=== PATIENT | female | born 1950 | race Caucasian/White ===

== ENCOUNTER 2017-06-29 19:31 | Inpatient (IN) ==
[2017-06-29] MEDS ORDERED: PIPERACILLIN SODIUM/TAZOBACTAM 3.375 GM in DEXTROSE 5% IN WATER 50 ML IV ONE (19:50)
[2017-06-29] MEDS ORDERED: VANCOMYCIN 1,500 MG in 0.9 % SODIUM CHLORIDE 500 ML IV ONE ×2 (19:50→23:36)
--- NOTE | 2017-06-29 19:50 | Emergency Department Note ---
General Adult HPI - General Chief complaint: Extremity Problem,Nontraumatic Stated complaint: leg wounds, SOB Time Seen by Provider: 06/29/17 19:45 Source: patient, EMS Mode of arrival: ambulatory Limitations: no limitations - History of Present Illness HPI Narrative: This patient has open leg wounds that are very foul-smelling. He has been going on for a couple months and the patient has just been tending to them as best she can at home. She also feels a little short of breath and apparently has some asthma - Related Data Home Medications Medication Instructions Recorded Confirmed Albuterol Sulfate [Proair Hfa] 8.5 gm IH Q4 04/28/16 05/05/16 Carvedilol [Coreg] 25 mg PO BID 04/28/16 05/05/16 Furosemide [Lasix] 40 mg PO BID 04/28/16 05/05/16 HYDROcodone/APAP 5/325MG [[place] 1 tab PO Q6HP PRN 04/28/16 05/05/16 5/325Mg] Lovastatin [Altoprev] 40 mg PO DAILY 04/28/16 05/05/16 Potassium Chloride [Kdur] 10 meq PO TIDCC 04/28/16 05/05/16 Salmeterol Xinafoate [Serevent] 50 mcg IH BID 04/28/16 05/05/16 amLODIPine BESYLATE [Amlodipine 10 mg PO DAILY 04/28/16 05/05/16 Besylate] cloNIDine HCL [Catapres] 0.6 mg PO BID 04/28/16 05/05/16 Aleve (Pp) 225 mg PO Q6H PRN 05/05/16 05/05/16 Tylenol 500 mg PO Q6 PRN 05/05/16 05/05/16 Ergocalciferol (Vitamin D2) 50,000 unit PO WEEKLY 05/07/16 05/07/16 [Vitamin D2] Losartan [Cozaar] 25 mg PO DAILY 05/07/16 05/07/16 Previous Rx's Medication Instructions Recorded Ciprofloxacin [Cipro] 500 mg PO BID #30 tablet 05/09/16 Allergies Allergy/AdvReac Type Severity Reaction Status Date / Time lidocaine AdvReac Intermediate Muscle Pain Verified 05/05/16 21:23 morphine AdvReac Intermediate Vomiting Verified 05/05/16 21:23 wool AdvReac Intermediate Rash Verified 05/05/16 21:23 tramadol AdvReac Mild Vomiting Verified 05/05/16 21:23 Review of Systems All systems ED: reviewed and negative except as stated. 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 It is very foul-smelling and draining. She also has wraps on the left leg as well. Wound in the right leg is much worse than the left with a lot of ulceration on the lateral side of the lower leg. Limitations: no limitations General appearance: alert, in no apparent distress Head: atraumatic, normocephalic Eye: Present: normal appearance ENT: normal exam Neck: Present: normal inspection Chest: Present: normal inspection Respiratory: Present: normal lung sounds bilaterally Cardiovascular: Present: regular rate, normal rhythm, normal heart sounds Neurological: Present: alert Psychiatric: Present: normal affect, normal mood Skin: Present: warm, dry, intact Medical Decision Making - MDM Narrative Medical decision making narrative: I gave the patient dose of vancomycin and Zosyn and she will be admitted to the hospital by the hospitalist. - Lab Data Lab results reviewed: Yes I reviewed the patient's lab results. Result diagrams: 06/29/17 20:25 06/29/17 20:25 Lab Results 06/29/17 06/29/17 Range/Units 20:25 20:25 WBC 7.4 (4.5-11.0) K/mcL RBC 3.99 L (4.00-5.20) M/mcL Hgb 11.0 L (12.0-15.0) g/dL Hct 34.1 L (36.0-48.0) % MCV 85.5 (80.0-100.0) fL MCH 27.6 (26.0-34.0) pg MCHC 32.3 (31.0-36.0) g/dL RDW 14.1 (11.5-14.5) % Plt Count 348 (140-440) K/mcL MPV 7.2 L (7.4-10.4) fL Gran % 56.3 (38.0-78.0) % Lymph % (Auto) 30.3 (15.5-49.0) % [place] % (Auto) 8.7 (1.0-12.0) % Eos % (Auto) 4.4 (0.0-7.0) % Baso % (Auto) 0.3 (0.0-2.0) % Gran # 4.2 (1.8-8.0) K/mcL Lymph # (Auto) 2.3 (1.5-4.8) K/mcL [place] # (Auto) 0.6 (0.1-0.9) K/mcL Eos # (Auto) 0.3 (0.0-0.7) K/mcL Baso # (Auto) 0 (0.0-0.3) K/mcL Sodium 135 (133-145) mmol/L Potassium 3.6 (3.3-5.1) mmol/L Chloride 96 (96-108) mmol/L Carbon Dioxide 24 (22-30) mmol/L Anion Gap 15.0 (8-16) BUN 26 H (8-23) mg/dl Creatinine 1.7 H (0.6-1.1) mg/dl GFR Calculation 31 Glucose 121 H (70-105) mg/dL Calcium 9.1 (8.6-10.4) mg/dl Total Bilirubin 0.2 (0.0-1.0) mg/dL AST 15 (0-37) U/l ALT 15 (0-40) U/l Alkaline Phosphatase 81 (39-117) U/L Total Protein 7.2 (5.9-8.4) gm/dL Albumin 3.2 (3.2-5.2) gm/dL Globulin 4.0 H (2.2-3.7) gm/dL Albumin/Globulin Ratio 0.8 L (1.0-2.3) Disposition 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
[2017-06-29] MEDS ORDERED: HYDROmorphone 2 MG/ML SYRINGE IV PRN (20:41)
[2017-06-29 21:02] LABS: Basophils # (Auto) 0 K/mcL (0.0-0.3); Basophils % (Auto) 0.3 % (0.0-2.0); Eosinophils # (Auto) 0.3 K/mcL (0.0-0.7); Eosinophils % (Auto) 4.4 % (0.0-7.0); Granulocytes % (Auto) 56.3 % (38.0-78.0); Lymphocytes # (Auto) 2.3 K/mcL (1.5-4.8); Lymphocytes % (Auto) 30.3 % (15.5-49.0); Mean Cell Volume 85.5 fL (80.0-100.0); Mean Corpuscular HGB Conc 32.3 g/dL (31.0-36.0); Mean Corpuscular Hemoglobin 27.6 pg (26.0-34.0); Monocytes # (Auto) 0.6 K/mcL (0.1-0.9); Monocytes % (Auto) 8.7 % (1.0-12.0); Platelet Count 348 K/mcL (140-440); RBC 3.99 M/mcL (4.00-5.20); Red Cell Distribution Width 14.1 % (11.5-14.5)
[2017-06-29] MEDS ORDERED: ONDANSETRON 4 MG/2 ML VIAL ONE (21:02)
[2017-06-29 21:12] LABS: ALT/SGPT 15 U/l (0-40); Albumin 3.2 gm/dL (3.2-5.2); Albumin/Globulin Ratio 0.8 (1.0-2.3); Alkaline Phosphatase 81 U/L (39-117); Blood Urea Nitrogen 26 mg/dl (8-23)
[2017-06-29] MEDS ORDERED: ONDANSETRON 4 MG/2 ML VIAL IV ONE (21:16)
[2017-06-29] MEDS ORDERED: PIPERACILLIN SODIUM/TAZOBACTAM 3.375 GM VIAL IV ONE (21:43)
[2017-06-29] MEDS ORDERED: 0.9 % SODIUM CHLORIDE 1,000 ML IV ONE (22:35)
--- NOTE | 2017-06-29 22:51 | Internal Med History&Physical ---
Medical - H&P: HPI Patient information: Note initiated : 06/29/17 at 10:44 pm Service Date, if different from initiated Date: [] Patient: Cony Baig a 66 y/o F admitted on for leg wounds, SOB. Chief Complaint: [] History of present illness: Ms. Baig is a 66 year old Female with history of chronic bronchitis, hypertension and obesity presented to the ER to with complaints of worsening wounds of both her legs. According to the patient, she has been having blisters n both lower extremities. She attributes these blisters to(lubrication ) injections in her knee, which were given to her for osteoarthritis. She tried to take care of these boosters at home using hydroperoxide, however they continued to progress, she never seeked help. The wounds started to aggresively get worse, over last 2 months. The patient has been having pain in both her lower extremities, and she has been taking ibuprofen approx 600mg four to 5 times a day. Over the last 2 weeks she has also been having a sinus infection, some cough, and shortness of breath. She was unable to manage the wounds by her self and therefore came in today for evaluation and help The patient lives with her , who is legally as per her and live in the same house, pt notes that they want to separate but cannot afford immigration attorney fees. She notes that her son 28 yr old was killed / in july and since then she has not been doing well. She attributes the of her son as the main reason she did not seek help earlier In the ER the patient was afebrile, she had both legs covered in dressing, which was draining profusely and was smelling bad, her X Ray chest is neg, labs show creat of 1.7. She was admitted to the hospital for further management. All systems: reviewed and no additional remarkable complaints except as stated ( as per HPI) Medical - H&P: PMH Medical history: Medical History Cellulitis (Acute) Edema extremities (Acute) Venous stasis ulcer of both lower extremities without varicose veins (Acute) Cellulitis and abscess of leg (Acute) Diabetic ankle ulcer (Acute) HTN obesity Family history: reviewed and not pertinent Social history: lives home denies smoking, etoh or recreational drugs. Medical - H&P: Meds Home Medications Medication Instructions Recorded Confirmed Type Albuterol Sulfate [Proair Hfa] 8.5 gm IH Q4 04/28/16 05/05/16 History Carvedilol [Coreg] 25 mg PO BID 04/28/16 05/05/16 History Furosemide [Lasix] 40 mg PO BID 04/28/16 05/05/16 History HYDROcodone/APAP 5/325MG [[place] 1 tab PO Q6HP PRN 04/28/16 05/05/16 History 5/325Mg] Lovastatin [Altoprev] 40 mg PO DAILY 04/28/16 05/05/16 History Potassium Chloride [Kdur] 10 meq PO TIDCC 04/28/16 05/05/16 History Salmeterol Xinafoate [Serevent] 50 mcg IH BID 04/28/16 05/05/16 History amLODIPine BESYLATE [Amlodipine 10 mg PO DAILY 04/28/16 05/05/16 History Besylate] cloNIDine HCL [Catapres] 0.6 mg PO BID 04/28/16 05/05/16 History Aleve (Pp) 225 mg PO Q6H PRN 05/05/16 05/05/16 History Tylenol 500 mg PO Q6 PRN 05/05/16 05/05/16 History Ergocalciferol (Vitamin D2) 50,000 unit PO WEEKLY 05/07/16 05/07/16 History [Vitamin D2] Losartan [Cozaar] 25 mg PO DAILY 05/07/16 05/07/16 History Ciprofloxacin [Cipro] 500 mg PO BID #30 tablet 05/09/16 Rx Allergies Allergy/AdvReac Type Severity Reaction Status Date / Time lidocaine AdvReac Intermediate Muscle Pain Verified 05/05/16 21:23 morphine AdvReac Intermediate Vomiting Verified 05/05/16 21:23 wool AdvReac Intermediate Rash Verified 05/05/16 21:23 tramadol AdvReac Mild Vomiting Verified 05/05/16 21:23 Medical - H&P: Exam - Constitutional Vitals: Pulse BP Pulse Ox 66 117/98 92 06/29/17 21:59 06/29/17 21:59 06/29/17 21:59 Exam: GENERAL: The patient is a well-developed, well-nourished in no apparent distress. Is alert and oriented x3. obese VITAL SIGNS: Reviewed and as noted elsewhere. HEENT: Head is normocephalic and atraumatic. Extraocular muscles are intact. Pupils are equal, round, and reactive to light. Nares appeared normal. Mouth appears any without lesions. Mucous membranes are moist. NECK: Normal to inspection, Supple, No lymphadenopathy or thyromegaly. LUNGS: Air entry equal on both sides, no wheezing, crackles or rhonchi noted. No accessory muscles of respiration HEART: Regular rate and rhythm normal, S1 and S2 heard, no Gallop, S3 or Rub Noted, No Gross murmur heard. ABDOMEN: Soft, nontender, and nondistended. Positive bowel sounds. No hepatosplenomegaly was noted. EXTREMITIES: wilder extremities, below knee lower 1/3 significant necrotizing infection, excoration and foul smelling wounds. RIght significantly worse than left, but left is pretty bad too. wilder DP pulses present. see pic in chart NEUROLOGIC: Cranial nerves II through XII are grossly intact. Motor and Sensory System Grossly Intact PSYCHIATRIC: Depressed, intermittently crying, SKIN: No ulceration or wounds noted, No jaundice, No rash noted. Medical - H&P: Reslt - Labs CBC & Chem 7: 06/29/17 20:25 06/29/17 20:25 Labs: Short CBC 06/29/17 Range/Units 20:25 WBC 7.4 (4.5-11.0) K/mcL Hgb 11.0 L (12.0-15.0) g/dL Hct 34.1 L (36.0-48.0) % Plt Count 348 (140-440) K/mcL BMP 06/29/17 20:25 Sodium 135 Potassium 3.6 Chloride 96 Carbon Dioxide 24 BUN 26 H Creatinine 1.7 H Glucose 121 H Calcium 9.1 Liver Function 06/29/17 Range/Units 20:25 Total Bilirubin 0.2 (0.0-1.0) mg/dL AST 15 (0-37) U/l ALT 15 (0-40) U/l Alkaline Phosphatase 81 (39-117) U/L Albumin 3.2 (3.2-5.2) gm/dL Medical - H&P: A/P - Narrative A/P Narrative: A/P Wilder lower extremity wounds/ Acute cellutlitis, : Wound care consult, IV vanco and zosyn for now, get x ray of legs, consider CT , check a1c, Renal failure: IV fluids for now, likely secondary to nsaid use, check urine studies, renal sonogram. Depression: clinically seems depressed, consider she was supposed to follow up with psych as outpatient, but never did, declined anti depressant medications HTN: Hold bp meds for now, wait for verification, resume once bp is stable. DVT hep sq Diet regular Full code
[2017-06-29] MEDS ORDERED: VANCOMYCIN PER PHARMACY IV ONE (23:36)
[2017-06-29] MEDS ORDERED: oxyCODONE HCL 5 MG TABLET PO PRN (23:36)
[2017-06-29] MEDS ORDERED: ACETAMINOPHEN 325 MG TABLET PO PRN (23:36)
[2017-06-29] MEDS ORDERED: NALOXONE HCL 0.4 MG/ML VIAL IV PRN (23:36)
[2017-06-30] MEDS ORDERED: DEXTROSE 5% IN WATER 500 ML IV ONE (00:15)
[2017-06-30] MEDS ORDERED: VANCOMYCIN 1 GM VIAL ONE (00:27)
[2017-06-30] MEDS ORDERED: VANCOMYCIN 500 MG VIAL ONE (00:27)
[2017-06-30 00:53] LABS: Appearance,Urine HAZY; Bacteria,Urine MOD /hpf (0); Bilirubin,Urine NEG (NEG); Color,Urine YELLOW; Glucose,Urine (UA) NEGATIVE (NEG); Leukocyte Esterase,Urine NEG /uL (NEG); Mucus,Urine FEW /hpf (0); Nitrate,Urine NEG (NEG); Protein,Urine 100 mg/dL (NEG); Specific Gravity,Urine 1.019 (1.000-1.035); Urine Amorphous Crystals FEW /hpf (0); Urine Blood NEG mg/dL (<0.03); Urine Hyaline Cast 57 /lpf (0-2); Urine RBC 4 /hpf (0-1); Urine Squamous Epithelial Cell 12 /hpf (0-4); Urine Transitional Epi Cells < 1 /hpf (0-2); Urine WBC 9 /hpf (0-4)
[2017-06-30] MEDS: ONDANSETRON 4 MG/2 ML VIAL IV PRN ×2 (01:06→07:07)
[2017-06-30] MEDS: HYDROmorphone 2 MG/ML SYRINGE IV PRN ×2 (01:07→07:02)
[2017-06-30] MEDS ORDERED: HYDROmorphone 2 MG/ML SYRINGE ONE (01:08)
[2017-06-30] MEDS: PIPERACILLIN SODIUM/TAZOBACTAM 3.375 GM in DEXTROSE 5% IN WATER 50 ML IV SCH ×4 (01:35→21:31)
[2017-06-30] MEDS: 0.9 % SODIUM CHLORIDE 10 ML SYRINGE IV SCH ×3 (01:57→21:31)
[2017-06-30] MEDS: IPRATROPIUM/ALBUTEROL 3 ML AMPUL.NEB NEB ONE ×2 (01:58→02:24)
[2017-06-30] MEDS: LACTATED RINGERS 1,000 ML IV SCH ×3 (04:21→16:22)
[2017-06-30] MEDS ORDERED: oxyCODONE HCL 5 MG TABLET PO ONE (04:31)
--- NOTE | 2017-06-30 06:28 | XRay Report ---
CLINICAL INFORMATION: Cellulitis COMPARISON: None. FINDINGS: No osseous abnormality. Severe degenerative change in the medial tibiofemoral compartment noted. The lateral tibiofemoral compartment and ankle mortise are normal in width and alignment. Diffuse soft tissue swelling compatible with cellulitis/fasciitis appreciated IMPRESSION: Moderate diffuse soft tissue swelling, most prominent in the lateral upper calf, compatible cellulitis/fasciitis Severe degenerative change - medial compartment tibiofemoral joint Interpreted and Authenticated by: Rhys Wong 06/30/17
--- NOTE | 2017-06-30 06:31 | XRay Report ---
CLINICAL INFORMATION: Shortness of breath COMPARISON: None. FINDINGS: The heart is mildly enlarged - accentuated by lordotic positioning, right rotation and portable technique. Mediastinum and pulmonary vessels are normal. Minor bibasilar atelectasis noted - no definite infiltrate or effusion IMPRESSION: Mild cardiomegaly and mild bibasilar atelectasis Interpreted and Authenticated by: Rhys Wong 06/30/17
--- NOTE | 2017-06-30 06:40 | XRay Report ---
CLINICAL INFORMATION: Cellulitis COMPARISON: None. FINDINGS: No osseous abnormality. Moderate degenerative change in the tibiofemoral and patellofemoral joints. Ankle mortise is normal. Moderate diffuse soft tissue swelling, predominantly in the upper calf, is compatible with the clinical diagnosis of cellulitis/fasciitis IMPRESSION: Moderate soft tissue swelling, predominantly in the upper calf, compatible with the clinical diagnosis of cellulitis/fasciitis. Moderate degenerative change - tibiofemoral patellofemoral joints Interpreted and Authenticated by: Rhys Wong 06/30/17
[2017-06-30] MEDS ORDERED: VANCOMYCIN PER PHARMACY IV SCH ×3 (07:00→15:24)
[2017-06-30 07:46] LABS: Basophils # (Auto) 0 K/mcL (0.0-0.3); Basophils % (Auto) 0.3 % (0.0-2.0); Eosinophils # (Auto) 0.3 K/mcL (0.0-0.7); Eosinophils % (Auto) 4.7 % (0.0-7.0); Granulocytes % (Auto) 59.3 % (38.0-78.0); Lymphocytes # (Auto) 1.8 K/mcL (1.5-4.8); Lymphocytes % (Auto) 27.9 % (15.5-49.0); Mean Cell Volume 85.3 fL (80.0-100.0); Mean Corpuscular HGB Conc 33.1 g/dL (31.0-36.0); Mean Corpuscular Hemoglobin 28.2 pg (26.0-34.0); Monocytes # (Auto) 0.5 K/mcL (0.1-0.9); Monocytes % (Auto) 7.8 % (1.0-12.0); Platelet Count 316 K/mcL (140-440); Red Cell Distribution Width 14.1 % (11.5-14.5)
[2017-06-30] MEDS ORDERED: oxyCODONE HCL 5 MG TABLET PO PRN ×2 (08:04→13:51)
[2017-06-30 08:20] LABS: ALT/SGPT 15 U/l (0-40); Albumin 2.9 gm/dL (3.2-5.2); Albumin/Globulin Ratio 0.8 (1.0-2.3); Alkaline Phosphatase 66 U/L (39-117); Bilirubin,Direct < 0.2 mg/dL (0.0-0.3); Blood Urea Nitrogen 19 mg/dl (8-23); Gamma Glutamyl Transpeptidase 51 U/L (5-36)
[2017-06-30 08:23] LABS: Estimated Average Glucose(eAG) 157 mg/dL; Hemoglobin A1C 7.1 % HGB (4.0-6.0)
[2017-06-30] MEDS ORDERED: HEPARIN 5,000 UNIT/ML VIAL SQ SCH ×2 (09:00→21:00)
[2017-06-30] MEDS ORDERED: DEXTROSE 50% 50 ML VIAL IV PRN ×3 (09:08→15:24)
[2017-06-30] MEDS ORDERED: DEXTROSE 31 GM ORAL.SUSP PO PRN ×3 (09:08→15:24)
--- NOTE | 2017-06-30 09:40 | Internal Med Progress Note ---
Medical - PN: Subj Patient information: Note initiated : 06/30/17 at 9:38 am Service Date, if different from initiated Date: [] Patient: Cony Baig 66 y/o F admitted on 06/29/17 for leg wounds, SOB. Chief Complaint: [] Interval history: Ms. Baig is a 66 year old Female with history of chronic bronchitis, hypertension and obesity presented to the ER to with complaints of worsening wounds of both her legs. According to the patient, she has been having blisters n both lower extremities. She attributes these blisters to(lubrication ) injections in her knee, which were given to her for osteoarthritis. She tried to take care of these boosters at home using hydroperoxide, however they continued to progress, she never seeked help. The wounds started to aggresively get worse, over last 2 months. The patient has been having pain in both her lower extremities, and she has been taking ibuprofen approx 600mg four to 5 times a day. Over the last 2 weeks she has also been having a sinus infection, some cough, and shortness of breath. 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 She notes that her son 28 yr old was killed / in July and since then she has not been doing well. She attributes the of her son as the main reason she did not seek help earlier In the ER the patient was afebrile, she had both legs covered in dressing, which was draining profusely and was smelling bad, her X Ray chest is neg, labs show creat of 1.7. She was admitted to the hospital for further management. Jun 30 Patient seen examined, no acute overnight issues, x rays wilder shows cellulitis, fascitis, no air patient labs reviewed she was crying overnight, but has refused anti depressants, The patient with acute cellutlitis/ fascitis, will have gen surgery evaliuate the patient for nwo and then can have follow up with wound care as outpatient. continue iv abx patient had some nausea to dilaudid, d/c same, just use oral pain meds for pain management creat is normal now, await renal sonogram Pertinent ROS: Denies headache, dizziness Denies chest pain, palpitations Denies cough or shortness of breath Denies abdominal pain, present nausea no vomiting. - Constitutional Vitals: Vital Signs Temp Pulse Resp BP Pulse Ox 100.1 F H 70 20 164/72 93 06/30/17 07:26 06/30/17 04:00 06/30/17 07:26 06/30/17 07:26 06/30/17 08:00 Period Temp Pulse Resp BP Sys/Najera Pulse Ox Last 24 Hr 97.8 F-100.1 F 66-75 - 117-164/68-98 92-93 Intake and Output 06/29/17 06/30/17 06/30/17 21:59 05:59 13:59 Intake Total 1650 / 1650 Output Total 250 / 250 Balance 1400 / 1400 Weight 200 lb 247 lb Intake & Output: Intake & Output 06/29/17 06/30/17 06/30/17 21:59 05:59 13:59 Intake Total 1650 / 1650 Output Total 250 / 250 Balance 1400 / 1400 Weight 200 lb 247 lb Intake: IV 1050 / 1050 Zosyn 3.375 gm In Dextrose 5% 50 / 50 in Water 50 ml @ 100 mls/hr IV ONCE ONE Rx#:[id number] Oral 600 / 600 Output: Void Amount 250 / 250 Exam: Constitutional; Afebrile, cooperative, alert, not in distress. Eyes- No icterus, No periorbital swelling Ears- Ext ear normal, hearing normal to conversation. Neck- Midline trachea, supple Respiratory system: Air Entry equal on both sides, No crackles or wheezing, no rhonchi. CVS- Rate rhythm regular, S1,S2 heard, no gallop, no rub. Abdomen- Soft nontender abdomen, no organomegaly, no tenderness, no guarding or rigidity, REPRESENTATIVE PERSONAL SERVICE- AOOx3, moving all extremities, no gross focal deficit noted. Medical - PN: Obj Da - Labs CBC & Chem 7: 06/30/17 06:42 06/30/17 06:42 Labs: Abnormal Lab Results 06/30/17 06/30/17 06/30/17 06:42 06:42 06:42 RBC 3.70 L Hgb 10.4 L Hct 31.6 L MPV 7.0 L Carbon Dioxide 21 L BUN Creatinine Glucose 128 H Hemoglobin A1c 7.1 H Calcium 8.2 L GGT 51 H Albumin 2.9 L Globulin Albumin/Globulin Ratio 0.8 L Urine Protein Urine Urobilinogen Urine RBC Urine WBC Ur Squamous Epith Cells Amorphous Crystals Urine Bacteria Hyaline Casts U [place] Prot/Creat Ratio 06/30/17 06/29/17 06/29/17 00:05 20:25 20:25 RBC 3.99 L Hgb 11.0 L Hct 34.1 L MPV 7.2 L Carbon Dioxide BUN 26 H Creatinine 1.7 H Glucose 121 H Hemoglobin A1c Calcium GGT Albumin Globulin 4.0 H Albumin/Globulin Ratio 0.8 L Urine Protein 100 A Urine Urobilinogen 2.0 A Urine RBC 4 H Urine WBC 9 H Ur Squamous Epith Cells 12 H Amorphous Crystals Few A Urine Bacteria Mod A Hyaline Casts 57 H U [place] Prot/Creat Ratio 06/29/17 00:05 RBC Hgb Hct MPV Carbon Dioxide BUN Creatinine Glucose Hemoglobin A1c Calcium GGT Albumin Globulin Albumin/Globulin Ratio Urine Protein Urine Urobilinogen Urine RBC Urine WBC Ur Squamous Epith Cells Amorphous Crystals Urine Bacteria Hyaline Casts U [place] Prot/Creat Ratio 0.21 H Meds: Medications Acetaminophen (Tylenol) 650 mg PO Q6HP PRN PRN Reason: PAIN/FEVER > 101 Albuterol/Ipratropium (Duoneb) 3 ml NEB Q6HRT [facility] Dextrose (Dextrose 50%) 0 ml IV UD PRN PRN Reason: Hypoglycemia Diagnostic Test (Pha) (Accu-Chek) 1 each FS ACHS [facility] Glucose (Insta-Glucose) 15 gm PO PRN PRN PRN Reason: Hypoglycemia Heparin Sodium (Porcine) (Heparin) 5,000 unit SQ Q12 [facility] Last Admin: 06/30/17 08:52 Dose: 5,000 unit Lactated Ringer's (Lactated Ringers) 1,000 mls @ 100 mls/hr IV .Q10H [facility] Last Admin: 06/30/17 08:43 Dose: Not Given Piperacillin Sod/Tazobactam (Sod 3.375 gm/ Dextrose) 50 mls @ 100 mls/hr IV Q8H [facility] Last Admin: 06/30/17 08:04 Dose: 100 mls/hr Vancomycin HCl 1,500 mg/ (Sodium Chloride) 500 mls @ 333.3 mls/hr IV DAILY [facility] Insulin Human Lispro (Humalog) 0 unit SQ ACHS [facility] PRN Reason: Protocol Naloxone HCl (Narcan) 0.1 mg IV Q2MIN PRN PRN Reason: Opiate Reversal Ondansetron HCl (Zofran) 4 mg IV Q6HP PRN PRN Reason: Nausea And Vomiting Last Admin: 06/30/17 07:07 Dose: 4 mg Oxycodone HCl (Roxicodone) 5 - 10 mg PO Q4HP PRN PRN Reason: PAIN LEVEL 3-6 Sodium Chloride (Saline Flush) 10 ml IV Q8 [facility] Last Admin: 06/30/17 04:30 Dose: 10 ml Vancomycin HCl (Vancomycin Per Pharmacy) 1 order IV UD [facility] Medical - PN: A/P - Time Spent With Patient Total time spent is greater than 50% in coordination of care (as documented) at patient's floor/unit and/or counseling patient: - Narrative A/P Narrative: A/P Wilder lower extremity wounds/ Acute cellutlitis/ fascitis, : Surgery consult, IV vanco and zosyn for now,x ray neg, will await surgery consult DM sliding scale insulin, glucose at goal Renal failure: creat is 1.0 now, await sonogram, continue with hydration. . Depression: clinically seems depressed, consider she was supposed to follow up with psych as outpatient, but never did, declined anti depressant medications, will try to see if we can convince her again. HTN: Hold bp meds for now, wait for verification, resume once bp is stable. DVT hep sq Diet regular Full code Medical - PN: Qual - VTE Deep Vein Thrombosis/Pulmonary Embolism Present on Admission: No
--- NOTE | 2017-06-30 11:28 | Consultation ---
DATE OF CONSULTATION: 06/30/2017 CHIEF COMPLAINT: The patient is seen in consultation at the request of Dr. Dye for bilateral lower extremity wounds. HISTORY OF PRESENT ILLNESS: The patient is a 66-year-old woman who was admitted to the hospital last evening with bilateral lower extremity wounds. The patient reports that she has had these wounds for approximately 4 months. She says she started off with blisters on both lower legs. She thought this was related to injections that she received for osteoarthritis. She has been trying to care for these wounds at home but they have continued to worsen and she presented to the ER last evening for further treatment. She reports that they are extremely painful. She reports that in the past about one year ago she had similar wounds on her lower extremities bilaterally which required debridement in the operating room due to the amount of pain that she was having. She states that she had been seen in wound care by Dr. Oseguera for the wound she had a year ago. She has not recently been seen in wound care for these current wounds. REVIEW OF SYSTEMS: CARDIOVASCULAR: Denies chest pain or pressure. PULMONARY: Denies any cough or shortness of breath. PAST MEDICAL HISTORY: 1. Bilateral lower extremity edema. 2. Venous stasis ulcer of the lower extremities bilaterally. 3. Prior bilateral lower extremity cellulitis and ulcers. 4. Hypertension. 5. Obesity. 6. COPD. SOCIAL HISTORY: The patient reports that she is and lives with her . PHYSICAL EXAMINATION: VITAL SIGNS: Temperature 100.1, pulse 83, respirations 20, blood pressure 164/72, O2 saturations are 92-93% on 2 liters of O2 nasal cannula. GENERAL: The patient is an elderly woman who appears her stated age, well-developed, obese, and disheveled in appearance. HEENT: Head is normocephalic. Sclerae are white. Mucous membranes are moist. CHEST: Breath sounds are clear in the upper manriquez bilaterally. No rales or wheezes heard. Breath sounds are diminished at the bases. CARDIOVASCULAR: Regular rhythm and rate. EXTREMITIES: DP pulses are palpable in the lower extremities bilaterally. On visual inspection, the lower legs bilaterally have erythema which blanches circumferentially consistent with cellulitis. She has multiple areas of skin discoloration with some loss of skin and some areas with open wound present and in other areas of what appears to be frankly necrotic skin. There is foul odor coming from the legs. There were significant serous-appearing drainage on the bandages that had been placed on her legs on admission but no zahraa pus noted from any of the wounds. Palpation of the lower extremities is very difficult due to the extreme tenderness that the patient has in these areas. The erythema extends for a few centimeters from below the knee down to the ankles bilaterally. There are also venous stasis changes noted of the lower extremities bilaterally. LABS AND STUDIES: CBC shows a white count of 6.4, hemoglobin of 10.4, hematocrit 31.6 and platelets of 316. Serum chemistries show a sodium of 137, potassium 3.5, chloride 100, CO2 21, BUN 19, creatinine 1.0. This is down from admission at which time it was 1.7. Glucose is 128. Hemoglobin A1c is elevated at 7.1. Calcium 8.2, phosphorus 4, magnesium 2. Total bilirubin 0.2, GGT 51, AST 18, ALT 15, alkaline phosphatase 66, lactate dehydrogenase 174, albumin 2.9. Tib/fib x-rays of the right and left lower extremities show soft tissue swelling without any evidence of soft tissue gas. ASSESSMENT AND PLAN: 1. Bilateral lower extremity venous stasis ulcer with necrotic tissue. 2. Bilateral lower extremity cellulitis. 3. The wounds need debridement of areas of frankly necrotic tissue. Given the extreme tenderness of these wounds, recommendation is that this be done in the operating room under anesthesia. Risks and benefits of the procedure were reviewed with the patient. Risks include, but are not limited to, bleeding, infection, possible need for further debridement, and risks of general anesthesia. The patient verbalized understanding of the surgery and would like to proceed. RC:keith Job ID: [id number] Doc ID: [id number] Diann Jimenez MD
[2017-06-30] MEDS ORDERED: INSULIN LISPRO 1 UNIT/0.01 ML UNIT SQ SCH ×2 (11:30→17:00)
[2017-06-30] MEDS: IPRATROPIUM/ALBUTEROL 3 ML AMPUL.NEB NEB SCH ×5 (11:43→23:59)
[2017-06-30] MEDS ORDERED: ONDANSETRON 4 MG/2 ML VIAL IV ONE (12:50)
[2017-06-30] MEDS ORDERED: MIDAZOLAM 5 MG/5 ML VIAL IV ONE (12:50)
[2017-06-30] MEDS ORDERED: DEXAMETHASONE 10 MG/ML VIAL IV ONE (12:50)
[2017-06-30] MEDS ORDERED: PROPOFOL 200 MG/20 ML VIAL IV ONE (12:50)
[2017-06-30] MEDS ORDERED: fentaNYL 250 MCG/5 ML VIAL IV ONE (12:50)
[2017-06-30] MEDS ORDERED: NALBUPHINE 10 MG/ML AMPUL IV ONE (12:50)
[2017-06-30] MEDS ORDERED: SILVER SULFADIAZINE CREAM.TOP 25GM TOPICAL SCH (12:51)
[2017-06-30] MEDS ORDERED: NALOXONE HCL 0.4 MG/ML VIAL IV PRN ×4 (13:35→15:24)
[2017-06-30] MEDS ORDERED: ONDANSETRON 4 MG/2 ML VIAL IV PRN ×4 (13:35→15:24)
[2017-06-30] MEDS ORDERED: IPRATROPIUM/ALBUTEROL 3 ML AMPUL.NEB NEB PRN ×2 (13:35→13:51)
[2017-06-30] MEDS ORDERED: LACTATED RINGERS 250 ML IV PRN ×2 (13:35→13:51)
[2017-06-30] MEDS ORDERED: MEPERIDINE 25 MG/ML SYRINGE IV PRN ×2 (13:35→13:51)
[2017-06-30] MEDS ORDERED: FLUMAZENIL 0.1 MG/ML ML IV PRN ×2 (13:35→13:51)
[2017-06-30] MEDS ORDERED: ACETAMINOPHEN 1,000 MG/100 ML BOTTLE IV ONE (13:35)
[2017-06-30] MEDS ORDERED: LACTATED RINGERS 1,000 ML IV SCH ×3 (13:45→13:51)
--- NOTE | 2017-06-30 13:50 | Brief Operative Note ---
Date of procedure: 06/30/17 Pre-op diagnosis: bilateral lower leg wounds Post-op diagnosis: same Procedure: debridement of lower leg wounds Grafts/Implants: No Anesthesia: GLMA Findings: lower leg venous stasis ulcers with necrotic skin Complications: none Surgeon: Diann Jimenez Estimated blood loss (cc): 10 Condition: stable Disposition: PACU
[2017-06-30] MEDS ORDERED: ACETAMINOPHEN 325 MG TABLET PO PRN ×2 (13:51→15:24)
[2017-06-30] MEDS ORDERED: 0.9 % SODIUM CHLORIDE 10 ML SYRINGE IV SCH (14:00)
[2017-06-30] MEDS ORDERED: PIPERACILLIN SODIUM/TAZOBACTAM 3.375 GM in DEXTROSE 5% IN WATER 50 ML IV SCH (16:00)
--- NOTE | 2017-06-30 16:18 | XRay Report ---
CLINICAL INFORMATION: Hypoxia COMPARISON: 06/29/2017 FINDINGS: The heart is mildly enlarged. Mediastinum is unremarkable. The central pulmonary arteries appear mildly enlarged with peripheral tapering suggesting the possibility of pulmonary hypertension. There is minor bibasilar atelectasis. No zahraa infiltrates or effusions IMPRESSION: Moderate bibasilar atelectasis. Mild cardiomegaly stable Possible enlargement of the central pulmonary arteries suggestive, but not diagnostic, of pulmonary hypertension. It would be more specifically diagnosed with echocardiogram Interpreted and Authenticated by: Rhys Wong 06/30/17
[2017-06-30] MEDS: methylPREDNISolone SOD SUCC 125 MG/2 ML VIAL IV SCH (16:24)
[2017-06-30] MEDS ORDERED: IPRATROPIUM/ALBUTEROL 3 ML AMPUL.NEB NEB ONE (16:34)
[2017-06-30] MEDS ORDERED: VANCOMYCIN 1,500 MG in 0.9 % SODIUM CHLORIDE 500 ML IV SCH ×2 (17:00)
[2017-06-30] MEDS: VANCOMYCIN 1,500 MG in 0.9 % SODIUM CHLORIDE 500 ML IV SCH (17:36)
[2017-06-30] MEDS: INSULIN LISPRO 1 UNIT/0.01 ML UNIT SQ SCH ×2 (17:36→20:51)
--- NOTE | 2017-06-30 18:33 | Ultrasound Report ---
CLINICAL INFORMATION: Renal failure COMPARISON: None. FINDINGS: Both kidneys are normal and symmetric in size, position, configuration and echotexture: The right is 10 x 5 cm and the left is 10.1 x 5 cm. There are no focal solid/cystic lesions, stones or hydronephrosis. Arterial blood flow is grossly normal to both kidneys on color/spectral Doppler Urinary bladder volume is 277-cc. Patient was unable to void. There are no focal bladder lesions IMPRESSION: Normal exam Interpreted and Authenticated by: Rhys Wong 06/30/17
[2017-06-30] MEDS ORDERED: IPRATROPIUM/ALBUTEROL 3 ML AMPUL.NEB NEB SCH ×3 (19:00→22:06)
[2017-06-30] MEDS: HEPARIN 5,000 UNIT/ML VIAL SQ SCH (20:50)
[2017-07-01] MEDS: methylPREDNISolone SOD SUCC 125 MG/2 ML VIAL IV SCH ×3 (00:45→16:16)
[2017-07-01] MEDS: IPRATROPIUM/ALBUTEROL 3 ML AMPUL.NEB NEB SCH ×6 (03:10→22:11)
[2017-07-01] MEDS: LACTATED RINGERS 1,000 ML IV SCH (03:12)
[2017-07-01] MEDS: PIPERACILLIN SODIUM/TAZOBACTAM 3.375 GM in DEXTROSE 5% IN WATER 50 ML IV SCH ×3 (05:48→21:50)
[2017-07-01] MEDS: 0.9 % SODIUM CHLORIDE 10 ML SYRINGE IV SCH ×3 (06:15→22:41)
[2017-07-01] MEDS ORDERED: oxyCODONE HCL 5 MG TABLET PO ONE (07:06)
[2017-07-01 07:26] LABS: Basophils # (Auto) 0 K/mcL (0.0-0.3); Basophils % (Auto) 0.2 % (0.0-2.0); Eosinophils # (Auto) 0 K/mcL (0.0-0.7); Eosinophils % (Auto) 0 % (0.0-7.0); Granulocytes % (Auto) 77.6 % (38.0-78.0); Lymphocytes # (Auto) 0.9 K/mcL (1.5-4.8); Lymphocytes % (Auto) 20.6 % (15.5-49.0); Mean Cell Volume 85.3 fL (80.0-100.0); Mean Corpuscular Hemoglobin 28.2 pg (26.0-34.0); Monocytes # (Auto) 0.1 K/mcL (0.1-0.9); Monocytes % (Auto) 1.6 % (1.0-12.0); Platelet Count 411 K/mcL (140-440); RBC 4.04 M/mcL (4.00-5.20); Red Cell Distribution Width 14.3 % (11.5-14.5)
[2017-07-01 07:35] LABS: ALT/SGPT 14 U/l (0-40); Albumin 3.3 gm/dL (3.2-5.2); Albumin/Globulin Ratio 0.9 (1.0-2.3); Alkaline Phosphatase 71 U/L (39-117); Bilirubin,Direct < 0.2 mg/dL (0.0-0.3); Blood Urea Nitrogen 12 mg/dl (8-23); Gamma Glutamyl Transpeptidase 55 U/L (5-36); Magnesium 2.1 mg/dL (1.6-2.5); Uric Acid 4.7 mg/dL (2.5-8.0)
[2017-07-01] MEDS: HEPARIN 5,000 UNIT/ML VIAL SQ SCH ×2 (08:01→21:04)
[2017-07-01] MEDS: INSULIN LISPRO 1 UNIT/0.01 ML UNIT SQ SCH ×4 (08:01→21:22)
[2017-07-01] MEDS ORDERED: SILVER SULFADIAZINE CREAM.TOP 25GM TOPICAL SCH (09:00)
--- NOTE | 2017-07-01 09:26 | Internal Med Progress Note ---
Medical - PN: Subj Patient information: Note initiated : 07/01/17 at 9:24 am Service Date, if different from initiated Date: [] Patient: Cony Baig 66 y/o F admitted on 06/29/17 for Freeman Lower Extremity Wounds/ Acute Cellulitis. Chief Complaint: [] Interval history: Ms. Baig is a 66 year old Female with history of chronic bronchitis, hypertension and obesity presented to the ER to with complaints of worsening wounds of both her legs. According to the patient, she has been having blisters n both lower extremities. She attributes these blisters to(lubrication ) injections in her knee, which were given to her for osteoarthritis. She tried to take care of these boosters at home using hydroperoxide, however they continued to progress, she never seeked help. The wounds started to aggresively get worse, over last 2 months. The patient has been having pain in both her lower extremities, and she has been taking ibuprofen approx 600mg four to 5 times a day. Over the last 2 weeks she has also been having a sinus infection, some cough, and shortness of breath. She was unable to manage the wounds by her self and therefore came in today for evaluation and help The patient lives with her , who is legally as per her and live in the same house, pt notes that they want to separate but cannot afford county attorney fees. She notes that her son 28 yr old was killed / in July and since then she has not been doing well. She attributes the of her son as the main reason she did not seek help earlier In the ER the patient was afebrile, she had both legs covered in dressing, which was draining profusely and was smelling bad, her X Ray chest is neg, labs show creat of 1.7. She was admitted to the hospital for further management. Jun 30 Patient seen examined, no acute overnight issues, x rays freeman shows cellulitis, fascitis, no air patient labs reviewed she was crying overnight, but has refused anti depressants, The patient with acute cellutlitis/ fascitis, will have gen surgery evaliuate the patient for nwo and then can have follow up with wound care as outpatient. continue iv abx patient had some nausea to dilaudid, d/c same, just use oral pain meds for pain management creat is normal now, await renal sonogram Jul 01 Patient seen examined, no acute overnight events, did not sleep well due to pain issues Her breathing is better, still has some cough She denies any other complaints. Will resume 5mg oxycodone, and start on Aisha IV tylenol for now Start on nortrypline qhs to help with pain/ sleep will resume home meds Pertinent ROS: Denies headache, dizziness cough related chest pain present, denies palpitations some cough, no sop, Denies abdominal pain, nausea or vomiting. - Constitutional Vitals: Vital Signs Temp Pulse Resp BP Pulse Ox 99.3 F H 92 H 18 178/96 95 07/01/17 07:50 07/01/17 07:22 07/01/17 07:50 07/01/17 07:50 07/01/17 08:12 Period Temp Pulse Resp BP Sys/Najera Pulse Ox Last 24 Hr 97.3 F-99.3 F 70-92 14-20 106-178/63-102 83-99 Intake and Output 06/30/17 07/01/17 07/01/17 21:59 05:59 13:59 Intake Total 2200 / 2200 1770 / 1770 50 / 50 Output Total 600 / 600 650 / 650 450 / 450 Balance 1600 / 1600 1120 / 1120 -400 / -400 Weight 256 lb Intake & Output: Intake & Output 06/30/17 07/01/17 07/01/17 21:59 05:59 13:59 Intake Total 2200 / 2200 1770 / 1770 50 / 50 Output Total 600 / 600 650 / 650 450 / 450 Balance 1600 / 1600 1120 / 1120 -400 / -400 Weight 256 lb Intake: IV 1900 / 1900 1050 / 1050 50 / 50 Lactated Ringers 1,000 ml @ 100 1000 / 1000 mls/hr IV .Q10H [facility] Rx#: [id number] Zosyn 3.375 gm In Dextrose 5% 50 / 50 50 / 50 50 / 50 in Water 50 ml @ 100 mls/hr IV Q8H [facility] Rx#:[id number] Vancomycin 1,500 mg In Sodium 500 / 500 Chloride 0.9% 500 ml @ 333.3 mls/hr IV DAILY [facility] Rx#: [id number] Oral 300 / 300 720 / 720 Output: Void Amount 600 / 600 650 / 650 450 / 450 Other: Meal Dinner Percent of Meal Consumed 100% # Bowel Movements 0 Exam: Constitutional; Afebrile, cooperative, alert, not in distress. Eyes- No icterus, , No periorbital swelling Ears- Ext ear normal, hearing normal to conversation. Neck- Midline trachea, supple Respiratory system: Air Entry equal on both sides, freeman decreased air entry but better than yesterday PM, mild exp wheezing present. CVS- Rate rhythm regular, S1,S2 heard, no gallop, no rub. 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 Medical - PN: Obj Da - Labs CBC & Chem 7: 07/01/17 06:21 07/01/17 06:21 Labs: Abnormal Lab Results 07/01/17 07/01/17 06/30/17 06:21 06:21 06:42 WBC 4.3 L RBC Hgb 11.4 L Hct 34.5 L MPV 7.0 L Lymph # (Auto) 0.9 L Carbon Dioxide BUN Creatinine Glucose 290 H Hemoglobin A1c 7.1 H Calcium Phosphorus 2.4 L GGT 55 H Albumin Globulin 3.8 H Albumin/Globulin Ratio 0.9 L Urine Protein Urine Urobilinogen Urine RBC Urine WBC Ur Squamous Epith Cells Amorphous Crystals Urine Bacteria Hyaline Casts U [place] Prot/Creat Ratio 06/30/17 06/30/17 06/30/17 06:42 06:42 00:05 WBC RBC 3.70 L Hgb 10.4 L Hct 31.6 L MPV 7.0 L Lymph # (Auto) Carbon Dioxide 21 L BUN Creatinine Glucose 128 H Hemoglobin A1c Calcium 8.2 L Phosphorus GGT 51 H Albumin 2.9 L Globulin Albumin/Globulin Ratio 0.8 L Urine Protein 100 A Urine Urobilinogen 2.0 A Urine RBC 4 H Urine WBC 9 H Ur Squamous Epith Cells 12 H Amorphous Crystals Few A Urine Bacteria Mod A Hyaline Casts 57 H U [place] Prot/Creat Ratio 06/29/17 06/29/17 06/29/17 20:25 20:25 00:05 WBC RBC 3.99 L Hgb 11.0 L Hct 34.1 L MPV 7.2 L Lymph # (Auto) Carbon Dioxide BUN 26 H Creatinine 1.7 H Glucose 121 H Hemoglobin A1c Calcium Phosphorus GGT Albumin Globulin 4.0 H Albumin/Globulin Ratio 0.8 L Urine Protein Urine Urobilinogen Urine RBC Urine WBC Ur Squamous Epith Cells Amorphous Crystals Urine Bacteria Hyaline Casts U [place] Prot/Creat Ratio 0.21 H Meds: Medications Albuterol/Ipratropium (Duoneb) 3 ml NEB Q4HRT [facility] Last Admin: 07/01/17 07:19 Dose: 3 ml Dextrose (Dextrose 50%) 0 ml IV UD PRN PRN Reason: Hypoglycemia Diagnostic Test (Pha) (Accu-Chek) 1 each FS ACHS [facility] Last Admin: 07/01/17 08:01 Dose: 1 each Glucose (Insta-Glucose) 15 gm PO PRN PRN PRN Reason: Hypoglycemia Heparin Sodium (Porcine) (Heparin) 5,000 unit SQ Q12 [facility] Last Admin: 07/01/17 08:01 Dose: 5,000 unit Lactated Ringer's (Lactated Ringers) 1,000 mls @ 100 mls/hr IV .Q10H [facility] Last Admin: 07/01/17 03:12 Dose: 100 mls/hr Piperacillin Sod/Tazobactam (Sod 3.375 gm/ Dextrose) 50 mls @ 100 mls/hr IV Q8H [facility] Last Infusion: 07/01/17 06:37 Dose: Infused Vancomycin HCl 1,500 mg/ (Sodium Chloride) 500 mls @ 333.3 mls/hr IV DAILY [facility] Last Infusion: 06/30/17 19:44 Dose: Infused Acetaminophen (Ofirmev) 650 mg in 65 mls @ 130 mls/hr IV Q6H [facility] Insulin Human Lispro (Humalog) 0 unit SQ ACHS [facility] PRN Reason: Protocol Last Admin: 07/01/17 08:01 Dose: 4 unit Methylprednisolone Sodium Succinate (Solu-Medrol) 62.5 mg IV Q8H [facility] Last Admin: 07/01/17 08:00 Dose: 62.5 mg Naloxone HCl (Narcan) 0.1 mg IV Q2MIN PRN PRN Reason: Opiate Reversal Ondansetron HCl (Zofran) 4 mg IV Q6HP PRN PRN Reason: Nausea And Vomiting Oxycodone HCl (Roxicodone) 5 mg PO Q4-6HP PRN PRN Reason: Pain Silver Sulfadiazine (Silvadene) 2 dose TOPICAL DAILY [facility] Sodium Chloride (Saline Flush) 10 ml IV Q8 [facility] Last Admin: 07/01/17 06:15 Dose: Not Given Vancomycin HCl (Vancomycin Per Pharmacy) 1 order IV UD [facility] Medical - PN: A/P - Time Spent With Patient Total time spent is greater than 50% in coordination of care (as documented) at patient's floor/unit and/or counseling patient: - Narrative A/P Narrative: A/P Freeman lower extremity wounds/ Acute cellutlitis/ fascitis, : Surgery consult, IV vanco and zosyn for now,x ray neg, /p debridement in OR< continue with IV ABX for now, will need wound care. Pain: freeman lower extremity pain: Oxycodone 5mg q4-6hrs prn, IV aisha tylenol, start on nortryptline 25qhs to see how she does. DM sliding scale insulin, glucose at goal, new onset HLD resume statin Renal failure: creat is 1.0 now, sonogram is neg, pt tolerating po well, renal sonogram is reported normal, d/c IVF. Depression: clinically seems depressed, consider she was supposed to follow up with psych as outpatient, but never did, declined anti depressant medications, will try to see if we can convince her again. HTN: resume home meds. BP high today. Will monitor. HOld off on clonidine 0.6mg bid, which is a bit of unsual dose for clonidine. DVT hep sq Diet regular Full code Medical - PN: Qual - VTE Deep Vein Thrombosis/Pulmonary Embolism Present on Admission: No
[2017-07-01] MEDS ORDERED: VANCOMYCIN 1,500 MG in DEXTROSE 5% IN WATER 500 ML IV SCH (10:00)
[2017-07-01] MEDS: amLODIPine 10 MG TABLET PO SCH (10:42)
[2017-07-01] MEDS: oxyCODONE HCL 5 MG TABLET PO PRN ×2 (10:42→21:05)
[2017-07-01] MEDS: SILVER SULFADIAZINE CREAM.TOP 25GM TOPICAL SCH (10:43)
[2017-07-01] MEDS: CARVEDILOL 12.5 MG TABLET PO SCH ×2 (10:43→17:32)
--- NOTE | 2017-07-01 11:22 | General Surgery Progress Note ---
Surgical - Auxillary Note - Subjective Patient Information: Note initiated : 07/01/17 at 11:09 am Service Date, if different from initiated Date: [] Patient: Cony Baig 66 y/o F admitted on 06/29/17 for [place] Lower Extremity Wounds/ Acute Cellulitis. Chief Complaint: [] Patient did well overnight. Had an exacerbation of her COPD post op but this is much improved. c/o pain in the legs bilaterally secondary to sores. Tolerated the shower this morning after medicating with oxycodone. Vital Signs Temp Pulse Resp BP Pulse Ox 99.3 F H 92 H 18 178/96 95 07/01/17 07:50 07/01/17 07:22 07/01/17 07:50 07/01/17 07:50 07/01/17 08:12 Period Temp Pulse Resp BP Sys/Najera Pulse Ox Last 24 Hr 97.3 F-99.3 F 70-92 14-20 106-178/63-102 83-99 Intake and Output 06/30/17 07/01/17 07/01/17 21:59 05:59 13:59 Intake Total 2200 / 2200 1770 / 1770 250 / 250 Output Total 600 / 600 650 / 650 1000 / 1000 Balance 1600 / 1600 1120 / 1120 -750 / -750 Weight 256 lb PE: No distress. Focused exam of the legs shows bilateral leg wounds are clean and no odor. No new skin necrosis. Erythema of legs mostly unchanged. Wounds redressed with silvadene ointment and kerlix roll gauze. Wound culture shows gram negative bacilli. A/P: Stable post op. Venous stasis ulcers of lower legs bilaterally. Await final Identification and sensitivities of cultures. Continue silvadene as topical dressing.
[2017-07-01] MEDS: ACETAMINOPHEN 650 MG/65 ML BOTTLE IV SCH ×3 (12:23→22:40)
[2017-07-01] MEDS: POTASSIUM CHLORIDE 20 MEQ TABLET PO SCH ×2 (12:50→17:31)
[2017-07-01] MEDS ORDERED: NORTRIPTYLINE 25 MG CAPSULE PO SCH (21:00)
[2017-07-01] MEDS ORDERED: NON FORMULARY MEDICATION 1 DOSE MISCELL (Carvedilol [Coreg] 25 MG) PO SCH (21:00)
[2017-07-01] MEDS ORDERED: FUROSEMIDE 40 MG TABLET PO SCH (21:00)
[2017-07-01] MEDS ORDERED: SIMVASTATIN 20 MG TABLET PO SCH (21:00)
[2017-07-01] MEDS ORDERED: CLONIDINE HCL PO SCH (21:00)
[2017-07-01] MEDS: SALMETEROL XINAFOATE 1 PUFF INHALER INH SCH (22:44)
[2017-07-01] MEDS: VANCOMYCIN 1,500 MG in 0.9 % SODIUM CHLORIDE 500 ML IV SCH (23:40)
[2017-07-02] MEDS: methylPREDNISolone SOD SUCC 125 MG/2 ML VIAL IV SCH ×2 (01:37→09:23)
[2017-07-02] MEDS: IPRATROPIUM/ALBUTEROL 3 ML AMPUL.NEB NEB SCH ×5 (03:18→19:07)
[2017-07-02] MEDS: ACETAMINOPHEN 650 MG/65 ML BOTTLE IV SCH ×5 (03:59→22:13)
[2017-07-02] MEDS: PIPERACILLIN SODIUM/TAZOBACTAM 3.375 GM in DEXTROSE 5% IN WATER 50 ML IV SCH ×3 (05:35→21:37)
[2017-07-02 05:58] LABS: ALT/SGPT 12 U/l (0-40); Albumin/Globulin Ratio 0.8 (1.0-2.3); Alkaline Phosphatase 68 U/L (39-117); Bilirubin,Direct < 0.2 mg/dL (0.0-0.3); Blood Urea Nitrogen 13 mg/dl (8-23); Gamma Glutamyl Transpeptidase 52 U/L (5-36); Magnesium 2.1 mg/dL (1.6-2.5); Uric Acid 3.9 mg/dL (2.5-8.0)
[2017-07-02 06:23] LABS: Basophils # (Auto) 0 K/mcL (0.0-0.3); Basophils % (Auto) 0.2 % (0.0-2.0); Eosinophils # (Auto) 0.1 K/mcL (0.0-0.7); Granulocytes % (Auto) 79.5 % (38.0-78.0); Lymphocytes # (Auto) 1.3 K/mcL (1.5-4.8); Lymphocytes % (Auto) 16.5 % (15.5-49.0); Mean Cell Volume 86.5 fL (80.0-100.0); Mean Corpuscular HGB Conc 32.2 g/dL (31.0-36.0); Mean Corpuscular Hemoglobin 27.9 pg (26.0-34.0); Monocytes # (Auto) 0.2 K/mcL (0.1-0.9); Monocytes % (Auto) 2.8 % (1.0-12.0); Platelet Count 390 K/mcL (140-440); RBC 3.98 M/mcL (4.00-5.20)
[2017-07-02] MEDS ORDERED: FUROSEMIDE 40 MG TABLET PO SCH (08:00)
[2017-07-02] MEDS ORDERED: FUROSEMIDE 40 MG/4 ML VIAL IV SCH (08:00)
[2017-07-02] MEDS: oxyCODONE HCL 5 MG TABLET PO PRN ×3 (08:59→19:47)
[2017-07-02] MEDS ORDERED: GABAPENTIN 100 MG CAPSULE PO SCH (09:00)
[2017-07-02] MEDS ORDERED: cloNIDine HCL 0.1 MG TABLET PO SCH (09:00)
[2017-07-02] MEDS ORDERED: VANCOMYCIN 1,500 MG in 0.9 % SODIUM CHLORIDE 500 ML IV SCH (09:00)
[2017-07-02] MEDS ORDERED: INSULIN GLARGINE, HUMAN 1 UNIT/0.01 ML SQ SCH (09:00)
[2017-07-02] MEDS ORDERED: amLODIPine 10 MG TABLET PO SCH (09:00)
[2017-07-02] MEDS: HEPARIN 5,000 UNIT/ML VIAL SQ SCH ×2 (09:39→21:42)
[2017-07-02] MEDS: CARVEDILOL 12.5 MG TABLET PO SCH ×2 (09:39→17:29)
[2017-07-02] MEDS: INSULIN LISPRO 1 UNIT/0.01 ML UNIT SQ SCH ×4 (09:39→21:54)
[2017-07-02] MEDS: POTASSIUM CHLORIDE 20 MEQ TABLET PO SCH ×3 (09:39→17:29)
[2017-07-02] MEDS: amLODIPine 10 MG TABLET PO SCH (09:40)
[2017-07-02] MEDS: SILVER SULFADIAZINE CREAM.TOP 25GM TOPICAL SCH (09:42)
--- NOTE | 2017-07-02 09:48 | Internal Med Progress Note ---
Medical - PN: Subj Patient information: Note initiated : 07/02/17 at 9:46 am Service Date, if different from initiated Date: [] Patient: Cony Baig 66 y/o F admitted on 06/29/17 for Freeman Lower Extremity Wounds/ Acute Cellulitis. Chief Complaint: [] Interval history: Ms. Baig is a 66 year old Female with history of chronic bronchitis, hypertension and obesity presented to the ER to with complaints of worsening wounds of both her legs. According to the patient, she has been having blisters n both lower extremities. She attributes these blisters to(lubrication ) injections in her knee, which were given to her for osteoarthritis. She tried to take care of these boosters at home using hydroperoxide, however they continued to progress, she never seeked help. The wounds started to aggresively get worse, over last 2 months. The patient has been having pain in both her lower extremities, and she has been taking ibuprofen approx 600mg four to 5 times a day. Over the last 2 weeks she has also been having a sinus infection, some cough, and shortness of breath. She was unable to manage the wounds by her self and therefore came in today for evaluation and help The patient lives with her , who is legally as per her and live in the same house, pt notes that they want to separate but cannot afford [place] attorney fees. She notes that her son 28 yr old was killed / in July and since then she has not been doing well. She attributes the of her son as the main reason she did not seek help earlier In the ER the patient was afebrile, she had both legs covered in dressing, which was draining profusely and was smelling bad, her X Ray chest is neg, labs show creat of 1.7. She was admitted to the hospital for further management. Jun 30 Patient seen examined, no acute overnight issues, x rays freeman shows cellulitis, fascitis, no air patient labs reviewed she was crying overnight, but has refused anti depressants, The patient with acute cellutlitis/ fascitis, will have gen surgery evaliuate the patient for nwo and then can have follow up with wound care as outpatient. continue iv abx patient had some nausea to dilaudid, d/c same, just use oral pain meds for pain management creat is normal now, await renal sonogram Jul 01 Patient seen examined, no acute overnight events, did not sleep well due to pain issues Her breathing is better, still has some cough She denies any other complaints. Will resume 5mg oxycodone, and start on Aisha IV tylenol for now Start on nortrypline qhs to help with pain/ sleep will resume home meds Jul 02 patient seen examined, patients wounds look raw, with erthema, but not spreading. appreciate surgery help She still has pain in the lower extremities, on oxycodone, and IV tylenol, will add gabapentin to her regime to see if that helps. Nortrypline added last night did help with sleep She denies any other complaints. her resp status is much better, Xfer to med surg status. Pertinent ROS: Denies headache, dizziness Denies chest pain, palpitations Denies cough or shortness of breath Denies abdominal pain, nausea or vomiting. - Constitutional Vitals: Vital Signs Temp Pulse Resp BP Pulse Ox 97.4 F 86 24 H 189/92 96 07/02/17 08:40 07/02/17 03:18 07/02/17 08:40 07/02/17 08:40 07/02/17 08:40 Period Temp Pulse Resp BP Sys/Najera Pulse Ox Last 24 Hr 95.6 F-97.8 F 70-88 16-24 150-189/69-93 90-97 Intake and Output 07/01/17 07/02/17 07/02/17 21:59 05:59 13:59 Intake Total 1215 / 1215 1630 / 1630 Output Total 575 / 575 476 / 476 Balance 1215 / 1215 1055 / 1055 -476 / -476 Weight 258 lb Intake & Output: Intake & Output 07/01/17 07/02/17 07/02/17 21:59 05:59 13:59 Intake Total 1215 / 1215 1630 / 1630 Output Total 575 / 575 476 / 476 Balance 1215 / 1215 1055 / 1055 -476 / -476 Weight 258 lb Intake: IV 615 / 615 1180 / 1180 Zosyn 3.375 gm In Dextrose 5% 50 / 50 50 / 50 in Water 50 ml @ 100 mls/hr IV Q8H [facility] Rx#:[id number] Vancomycin 1,500 mg In Dextrose 500 / 500 5% in Water 500 ml @ 333.3 mls /hr IV Q24H [facility] Rx#:[id number] Oral 600 / 600 450 / 450 Output: Void Amount 575 / 575 475 / 475 # of times incontinent of urine Other: Meal Dinner Milk and fruit cup Percent of Meal Consumed 100% 100% # Voids 1 1 # Bowel Movements 0 Exam: Constitutional; Afebrile, cooperative, alert, not in distress. obese Eyes- No icterus, , No periorbital swelling Ears- Ext ear normal, hearing normal to conversation. Neck- Midline trachea, supple Respiratory system: Air Entry equal on both sides, No crackles or wheezing, no rhonchi. (wheezing resolved) CVS- Rate rhythm regular, S1,S2 heard, no gallop, no rub. 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 Lower extremity: freeman edema, extensive wounds in both legs, right > left, Medical - PN: Obj Da - Labs CBC & Chem 7: 07/02/17 03:49 07/02/17 03:49 Labs: Abnormal Lab Results 07/02/17 07/02/17 07/01/17 03:49 03:49 06:21 WBC RBC 3.98 L Hgb 11.1 L Hct 34.4 L MPV 7.1 L Gran % 79.5 H Lymph # (Auto) 1.3 L Chloride 95 L Carbon Dioxide BUN Creatinine Glucose 258 H 290 H Hemoglobin A1c Calcium Phosphorus 2.5 L 2.4 L GGT 52 H 55 H Albumin 3.0 L Globulin 4.0 H 3.8 H Albumin/Globulin Ratio 0.8 L 0.9 L Triglycerides 211 H Urine Protein Urine Urobilinogen Urine RBC Urine WBC Ur Squamous Epith Cells Amorphous Crystals Urine Bacteria Hyaline Casts U [place] Prot/Creat Ratio 07/01/17 06/30/17 06/30/17 06:21 06:42 06:42 WBC 4.3 L RBC Hgb 11.4 L Hct 34.5 L MPV 7.0 L Gran % Lymph # (Auto) 0.9 L Chloride Carbon Dioxide 21 L BUN Creatinine Glucose 128 H Hemoglobin A1c 7.1 H Calcium 8.2 L Phosphorus GGT 51 H Albumin 2.9 L Globulin Albumin/Globulin Ratio 0.8 L Triglycerides Urine Protein Urine Urobilinogen Urine RBC Urine WBC Ur Squamous Epith Cells Amorphous Crystals Urine Bacteria Hyaline Casts U [place] Prot/Creat Ratio 06/30/17 06/30/17 06/29/17 06:42 00:05 20:25 WBC RBC 3.70 L Hgb 10.4 L Hct 31.6 L MPV 7.0 L Gran % Lymph # (Auto) Chloride Carbon Dioxide BUN 26 H Creatinine 1.7 H Glucose 121 H Hemoglobin A1c Calcium Phosphorus GGT Albumin Globulin 4.0 H Albumin/Globulin Ratio 0.8 L Triglycerides Urine Protein 100 A Urine Urobilinogen 2.0 A Urine RBC 4 H Urine WBC 9 H Ur Squamous Epith Cells 12 H Amorphous Crystals Few A Urine Bacteria Mod A Hyaline Casts 57 H U [place] Prot/Creat Ratio 06/29/17 06/29/17 20:25 00:05 WBC RBC 3.99 L Hgb 11.0 L Hct 34.1 L MPV 7.2 L Gran % Lymph # (Auto) Chloride Carbon Dioxide BUN Creatinine Glucose Hemoglobin A1c Calcium Phosphorus GGT Albumin Globulin Albumin/Globulin Ratio Triglycerides Urine Protein Urine Urobilinogen Urine RBC Urine WBC Ur Squamous Epith Cells Amorphous Crystals Urine Bacteria Hyaline Casts U [place] Prot/Creat Ratio 0.21 H Meds: Medications Albuterol/Ipratropium (Duoneb) 3 ml NEB Q4HRT [facility] Last Admin: 07/02/17 08:47 Dose: Not Given Amlodipine Besylate (Norvasc) 10 mg PO DAILY [facility] Last Admin: 07/02/17 09:40 Dose: 10 mg Carvedilol (Coreg) 25 mg PO BIDCC [facility] Last Admin: 07/02/17 09:39 Dose: 25 mg Dextrose (Dextrose 50%) 0 ml IV UD PRN PRN Reason: Hypoglycemia Diagnostic Test (Pha) (Accu-Chek) 1 each FS ACHS [facility] Last Admin: 07/02/17 09:43 Dose: 1 each Furosemide (Lasix) 40 mg IV BIDD [facility] Last Admin: 07/02/17 09:42 Dose: 40 mg Glucose (Insta-Glucose) 15 gm PO PRN PRN PRN Reason: Hypoglycemia Heparin Sodium (Porcine) (Heparin) 5,000 unit SQ Q12 [facility] Last Admin: 07/02/17 09:39 Dose: 5,000 unit Piperacillin Sod/Tazobactam (Sod 3.375 gm/ Dextrose) 50 mls @ 100 mls/hr IV Q8H [facility] Last Admin: 07/02/17 05:35 Dose: 100 mls/hr Acetaminophen (Ofirmev) 650 mg in 65 mls @ 130 mls/hr IV Q6H [facility] Last Infusion: 07/02/17 04:35 Dose: Infused Vancomycin HCl 1,500 mg/ (Sodium Chloride) 500 mls @ 333.3 mls/hr IV Q24H [facility] Last Admin: 07/02/17 09:00 Dose: 333.3 mls/hr Insulin Glargine (Lantus) 10 unit SQ BID [facility] Last Admin: 07/02/17 09:39 Dose: 1 unit Insulin Human Lispro (Humalog) 0 unit SQ ACHS [facility] PRN Reason: Protocol Last Admin: 07/02/17 09:39 Dose: 6 unit Naloxone HCl (Narcan) 0.1 mg IV Q2MIN PRN PRN Reason: Opiate Reversal Nortriptyline HCl (Pamelor) 25 mg PO [facility] Last Admin: 07/01/17 21:04 Dose: 25 mg Ondansetron HCl (Zofran) 4 mg IV Q6HP PRN PRN Reason: Nausea And Vomiting Oxycodone HCl (Roxicodone) 5 mg PO Q4-6HP PRN PRN Reason: Pain Last Admin: 07/02/17 08:59 Dose: 5 mg Potassium [facility] (Kdur) [facility] Last Admin: 07/02/17 09:39 Dose: 20 meq [facility]) [facility] Stop: 07/05/17 08:01 Salmeterol Xinafoate (Serevent) 1 puff INH BID [facility] Last Admin: 07/01/17 22:44 Dose: Not Given Silver Sulfadiazine (Silvadene) 2 dose TOPICAL DAILY [facility] Last Admin: 07/02/17 09:42 Dose: 1 dose Simvastatin (Zocor) 20 mg PO [facility] Last Admin: 07/01/17 21:04 Dose: 20 mg Sodium Chloride (Saline Flush) 10 ml IV Q8 [facility] Last Admin: 07/01/17 22:41 Dose: 10 ml Vancomycin HCl (Vancomycin Per Pharmacy) 1 order IV [facility] [place] Medical - PN: A/P - Time Spent With Patient Total time spent is greater than 50% in coordination of care (as documented) at patient's floor/unit and/or counseling patient: - Narrative A/P Narrative: A/P Freeman lower extremity wounds/ Acute cellutlitis/ fascitis, : Appreciate surgery help, wound care, IV antibiotics vanco and zosyn for now, patient will benefit from extended IV antibiotics, Will get PICC, Given her edema will swich her from oral to IV lasix to help improve swelilng which I hope will help with the wound healing process. Pain: freeman lower extremity pain: Oxycodone 5mg q4-6hrs prn, IV aisha tylenol, on nortrypline 25qhs, start on neurontin 100mg tid. DM new onset, pt denies h/o DM in the past. hyperglycemia also secondary to steroid use, on lantus 10 bid and med sliding scale insulin. HLD resume statin Renal failure: creat is 0.8, sonogram is neg, pt tolerating po well, renal sonogram is reported normal, d/c IVF. Depression: clinically seems depressed, consider she was supposed to follow up with psych as outpatient, but never did, declined anti depressant medications, will try to see if we can convince her again. HTN: resume home meds. BP high today. resume clonidine at 0.2mg bid, monitor for response and increase dose as tolerated, some hypertension could be related to pain, DVT hep sq Diet regular Full code xfer to med surg status. Medical - PN: Qual - VTE Deep Vein Thrombosis/Pulmonary Embolism Present on Admission: No
--- NOTE | 2017-07-02 11:17 | General Surgery Progress Note ---
Surgical - Auxillary Note - Subjective Patient Information: Note initiated : 07/02/17 at 10:43 am Service Date, if different from initiated Date: [] Patient: Cony Baig 66 y/o F admitted on 06/29/17 for Wilder Lower Extremity Wounds/ Acute Cellulitis. Chief Complaint: [] Patient in bed. Has showered and washed wounds in shower. Reports pain in legs now that wounds are uncovered. Tolerated the silvadene dressing throughout yesterday. Reports the ointment was soothing. Vital Signs Temp Pulse Resp BP Pulse Ox 97.4 F 86 24 H 189/92 96 07/02/17 08:40 07/02/17 03:18 07/02/17 08:40 07/02/17 08:40 07/02/17 08:40 Period Temp Pulse Resp BP Sys/Najera Pulse Ox Last 24 Hr 95.6 F-97.8 F 70-88 16-24 150-189/69-93 90-97 Intake and Output 07/01/17 07/02/17 07/02/17 21:59 05:59 13:59 Intake Total 1215 / 1215 1630 / 1630 Output Total 575 / 575 1026 / 1026 Balance 1215 / 1215 1055 / 1055 -1026 / -1026 Weight 258 lb PE: Focused exam of the legs shows the lower leg erythema less. Wounds clean. No further necrotic tissue development. A/P: Bilateral LE venous statis wounds. Showing some improvement. Continue silvadene at this time. Will need to change dressings/cleansing to include more aggressive cleansing of wounds (not necessarily surgical debridement) that is tolerable to patient due to pain in the area.
[2017-07-02] MEDS ORDERED: VANCOMYCIN PER PHARMACY IV SCH (12:27)
[2017-07-02] MEDS ORDERED: NALOXONE HCL 0.4 MG/ML VIAL IV PRN (12:27)
[2017-07-02] MEDS ORDERED: DEXTROSE 31 GM ORAL.SUSP PO PRN (12:27)
[2017-07-02] MEDS ORDERED: ONDANSETRON 4 MG/2 ML VIAL IV PRN (12:27)
[2017-07-02] MEDS ORDERED: DEXTROSE 50% 50 ML VIAL IV PRN (12:27)
[2017-07-02] MEDS ORDERED: IPRATROPIUM/ALBUTEROL 3 ML AMPUL.NEB NEB SCH (13:00)
[2017-07-02] MEDS: GABAPENTIN 100 MG CAPSULE PO SCH ×2 (14:19→21:44)
[2017-07-02] MEDS: SALMETEROL XINAFOATE 1 PUFF INHALER INH SCH ×2 (15:25→21:49)
[2017-07-02] MEDS: 0.9 % SODIUM CHLORIDE 10 ML SYRINGE IV SCH ×3 (15:29→22:14)
[2017-07-02] MEDS: FUROSEMIDE 40 MG/4 ML VIAL IV SCH (16:16)
[2017-07-02] MEDS: NORTRIPTYLINE 25 MG CAPSULE PO SCH (21:40)
[2017-07-02] MEDS: cloNIDine HCL 0.1 MG TABLET PO SCH (21:40)
[2017-07-02] MEDS: SIMVASTATIN 20 MG TABLET PO SCH (21:40)
[2017-07-02] MEDS: INSULIN GLARGINE, HUMAN 1 UNIT/0.01 ML SQ SCH (21:43)
[2017-07-03] MEDS: IPRATROPIUM/ALBUTEROL 3 ML AMPUL.NEB NEB SCH ×4 (01:45→19:13)
[2017-07-03] MEDS: ACETAMINOPHEN 650 MG/65 ML BOTTLE IV SCH (04:51)
[2017-07-03] MEDS: oxyCODONE HCL 5 MG TABLET PO PRN (05:14)
[2017-07-03 06:06] LABS: Basophils # (Auto) 0 K/mcL (0.0-0.3); Basophils % (Auto) 0.1 % (0.0-2.0); Eosinophils # (Auto) 0 K/mcL (0.0-0.7); Eosinophils % (Auto) 0.2 % (0.0-7.0); Granulocytes % (Auto) 57.8 % (38.0-78.0); Lymphocytes # (Auto) 2.5 K/mcL (1.5-4.8); Mean Cell Volume 87.3 fL (80.0-100.0); Mean Corpuscular HGB Conc 32.3 g/dL (31.0-36.0); Mean Corpuscular Hemoglobin 28.2 pg (26.0-34.0); Monocytes # (Auto) 0.8 K/mcL (0.1-0.9); Monocytes % (Auto) 9.9 % (1.0-12.0); Platelet Count 483 K/mcL (140-440); RBC 4.05 M/mcL (4.00-5.20); Red Cell Distribution Width 14.3 % (11.5-14.5)
[2017-07-03 06:13] LABS: ALT/SGPT 8 U/l (0-40); Albumin 3.1 gm/dL (3.2-5.2); Albumin/Globulin Ratio 0.9 (1.0-2.3); Alkaline Phosphatase 59 U/L (39-117); Bilirubin,Direct < 0.2 mg/dL (0.0-0.3); Blood Urea Nitrogen 21 mg/dl (8-23); Gamma Glutamyl Transpeptidase 50 U/L (5-36); Magnesium 2.2 mg/dL (1.6-2.5); Uric Acid 5.1 mg/dL (2.5-8.0)
[2017-07-03] MEDS ORDERED: HYDROmorphone 2 MG TABLET PO PRN (06:58)
[2017-07-03] MEDS ORDERED: POTASSIUM CHLORIDE 40 MEQ in DEXTROSE 5% IN WATER 500 ML IV ONE (07:30)
[2017-07-03] MEDS ORDERED: predniSONE 20 MG TABLET PO SCH (08:00)
[2017-07-03] MEDS ORDERED: POTASSIUM CHLORIDE 40 MEQ in 0.9 % SODIUM CHLORIDE 500 ML IV ONE (08:00)
[2017-07-03] MEDS: PIPERACILLIN SODIUM/TAZOBACTAM 3.375 GM in DEXTROSE 5% IN WATER 50 ML IV SCH (08:29)
[2017-07-03] MEDS: cloNIDine HCL 0.1 MG TABLET PO SCH ×2 (08:29→21:24)
[2017-07-03] MEDS: amLODIPine 10 MG TABLET PO SCH (08:29)
[2017-07-03] MEDS: 0.9 % SODIUM CHLORIDE 10 ML SYRINGE IV SCH ×3 (08:29→21:36)
[2017-07-03] MEDS: CARVEDILOL 12.5 MG TABLET PO SCH ×2 (08:30→16:44)
[2017-07-03] MEDS: HEPARIN 5,000 UNIT/ML VIAL SQ SCH ×2 (08:30→21:35)
[2017-07-03] MEDS: POTASSIUM CHLORIDE 20 MEQ TABLET PO SCH ×3 (08:30→16:44)
[2017-07-03] MEDS: predniSONE 20 MG TABLET PO SCH (08:30)
[2017-07-03] MEDS: GABAPENTIN 100 MG CAPSULE PO SCH ×3 (08:30→21:23)
[2017-07-03] MEDS: INSULIN LISPRO 1 UNIT/0.01 ML UNIT SQ SCH ×4 (08:32→21:40)
[2017-07-03] MEDS: INSULIN GLARGINE, HUMAN 1 UNIT/0.01 ML SQ SCH ×2 (08:33→21:36)
[2017-07-03] MEDS: SILVER SULFADIAZINE CREAM.TOP 400GM TOPICAL SCH (08:36)
[2017-07-03] MEDS: HYDROmorphone 2 MG TABLET PO PRN ×3 (08:56→21:30)
[2017-07-03] MEDS ORDERED: VANCOMYCIN 1,500 MG in 0.9 % SODIUM CHLORIDE 500 ML IV SCH (09:00)
[2017-07-03] MEDS ORDERED: CIPROFLOXACIN 500 MG TABLET PO SCH (09:36)
[2017-07-03] MEDS: FUROSEMIDE 40 MG/4 ML VIAL IV SCH (09:40)
--- NOTE | 2017-07-03 09:40 | General Surgery Progress Note ---
Surgical - Auxillary Note - Subjective Patient Information: Note initiated : 07/03/17 at 9:33 am Service Date, if different from initiated Date: [] Patient: Cony Baig 66 y/o F admitted on 06/29/17 for Wilder Lower Extremity Wounds/ Acute Cellulitis. Chief Complaint: [] Patient resting in bed. Has showered and cleaned her legs in the shower. Reports the usual pain with the open wounds. Vital Signs Temp Pulse Resp BP Pulse Ox 98.6 F 68 20 138/80 91 07/03/17 06:19 07/03/17 04:00 07/03/17 06:19 07/03/17 06:19 07/03/17 06:19 Period Temp Pulse Resp BP Sys/Najera Pulse Ox Last 24 Hr 97.0 F-98.8 F 64-76 16-20 138-158/76-89 91-93 Intake and Output 07/02/17 07/03/17 07/03/17 21:59 05:59 13:59 Intake Total 475 / 475 315 / 315 Output Total 700 / 700 Balance 475 / 475 -385 / -385 Weight 252 lb PE: No distress Leg wounds are clean. Some new granulation at wound edges. Mild fibrinous exudate on surfaces in some areas. Erythema improving. A/P: Bilateral LE ulcers. Cultures show Providencia sensitive to bactrim. Discussed switching to oral meds with Dr. Dye. Agree with keeping gram negative coverage as well to abx regimen. Will try more aggressive cleansing of wounds tomorrow if patient can tolerate with dilute hibiclens scrub in shower. Ideally want to avoid repeated trips to OR and anesthesia given patient's COPD.
[2017-07-03] MEDS: SULFAMETHOXAZOLE/TRIMETHOPRIM 1 TABLET PO SCH ×2 (10:49→21:24)
[2017-07-03] MEDS: SALMETEROL XINAFOATE 1 PUFF INHALER INH SCH ×2 (11:02→21:25)
--- NOTE | 2017-07-03 11:25 | Internal Med Progress Note ---
Medical - PN: Subj Patient information: Note initiated : 07/03/17 at 11:23 am Service Date, if different from initiated Date: [] Patient: Cony Baig 66 y/o F admitted on 06/29/17 for Freeman Lower Extremity Wounds/ Acute Cellulitis. Chief Complaint: [] Interval history: Ms. Baig is a 66 year old Female with history of chronic bronchitis, hypertension and obesity presented to the ER to with complaints of worsening wounds of both her legs. According to the patient, she has been having blisters n both lower extremities. She attributes these blisters to(lubrication ) injections in her knee, which were given to her for osteoarthritis. She tried to take care of these boosters at home using hydroperoxide, however they continued to progress, she never seeked help. The wounds started to aggresively get worse, over last 2 months. The patient has been having pain in both her lower extremities, and she has been taking ibuprofen approx 600mg four to 5 times a day. Over the last 2 weeks she has also been having a sinus infection, some cough, and shortness of breath. 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 She notes that her son 28 yr old was killed / in July and since then she has not been doing well. She attributes the of her son as the main reason she did not seek help earlier In the ER the patient was afebrile, she had both legs covered in dressing, which was draining profusely and was smelling bad, her X Ray chest is neg, labs show creat of 1.7. She was admitted to the hospital for further management. Jun 30 Patient seen examined, no acute overnight issues, x rays freeman shows cellulitis, fascitis, no air patient labs reviewed she was crying overnight, but has refused anti depressants, The patient with acute cellutlitis/ fascitis, will have gen surgery evaliuate the patient for nwo and then can have follow up with wound care as outpatient. continue iv abx patient had some nausea to dilaudid, d/c same, just use oral pain meds for pain management creat is normal now, await renal sonogram Jul 01 Patient seen examined, no acute overnight events, did not sleep well due to pain issues Her breathing is better, still has some cough She denies any other complaints. Will resume 5mg oxycodone, and start on Aisha IV tylenol for now Start on nortrypline qhs to help with pain/ sleep will resume home meds Jul 02 patient seen examined, patients wounds look raw, with erthema, but not spreading. appreciate surgery help She still has pain in the lower extremities, on oxycodone, and IV tylenol, will add gabapentin to her regime to see if that helps. Nortrypline added last night did help with sleep She denies any other complaints. her resp status is much better, Xfer to med surg status. Jul 03 patient seen examined, still has pain in lower legs, switch from oral oxycodone to oral hydromorphone to see if this helps. Patient on nortryptline qhs, and gabapentin 100 tid, slept well overnight, which would not be possible if she were indeed in severe pain. labs stable, wound culture is growing providenca, no pseudomonas, will d/c vanco and zosyn and start on bactrim and keflex (backtrim has poor strep coverage) and altought strep is not positive in wound culture, open wound cultuers are notoriously unreliable in identifying accurately the underlying organism. She has great wound care and topical silvadene cream which should adequately cover most pathogens. Her lungs should good, no wheezing on my exam today. Pertinent ROS: Denies headache, dizziness Denies chest pain, palpitations Denies cough or shortness of breath Denies abdominal pain, nausea or vomiting. - Constitutional Vitals: Vital Signs Temp Pulse Resp BP Pulse Ox 98.6 F 68 20 138/80 91 07/03/17 06:19 07/03/17 04:00 07/03/17 06:19 07/03/17 06:19 07/03/17 06:19 Period Temp Pulse Resp BP Sys/Najera Pulse Ox Last 24 Hr 97.0 F-98.8 F 64-76 16-20 138-158/76-89 91-93 Intake and Output 07/02/17 07/03/17 07/03/17 21:59 05:59 13:59 Intake Total 475 / 475 315 / 315 Output Total 700 / 700 Balance 475 / 475 -385 / -385 Weight 252 lb Intake & Output: Intake & Output 07/02/17 07/03/17 07/03/17 21:59 05:59 13:59 Intake Total 475 / 475 315 / 315 Output Total 700 / 700 Balance 475 / 475 -385 / -385 Weight 252 lb Intake: IV 115 / 115 115 / 115 Zosyn 3.375 gm In Dextrose 5% 50 / 50 50 / 50 in Water 50 ml @ 100 mls/hr IV Q8H [facility] Rx#:[id number] Oral 360 / 360 200 / 200 Output: Void Amount 700 / 700 Other: Meal Lunch Percent of Meal Consumed 100% # Voids 1 # Bowel Movements 1 Exam: Constitutional; Afebrile, cooperative, alert, not in distress. Eyes- No icterus, , No periorbital swelling Ears- Ext ear normal, hearing normal to conversation. Neck- Midline trachea, supple Respiratory system: Air Entry equal on both sides, No crackles or wheezing, no rhonchi. CVS- Rate rhythm regular, S1,S2 heard, no gallop, no rub. Abdomen- Soft nontender abdomen, no organomegaly, no tenderness, no guarding or rigidity, [employer]- AOOx3, moving all extremities, no gross focal deficit noted. Medical - PN: Obj Da - Labs CBC & Chem 7: 07/03/17 04:40 07/03/17 04:40 Labs: Abnormal Lab Results 07/03/17 07/03/17 07/02/17 04:40 04:40 03:49 WBC RBC Hgb 11.4 L Hct 35.4 L Plt Count 483 H MPV 6.9 L Gran % Lymph # (Auto) Chloride 95 L 95 L Carbon Dioxide 34 H Glucose 115 H 258 H Phosphorus 2.5 L GGT 50 H 52 H Albumin 3.1 L 3.0 L Globulin 4.0 H Albumin/Globulin Ratio 0.9 L 0.8 L Triglycerides 295 H 211 H 07/02/17 07/01/17 07/01/17 03:49 06:21 06:21 WBC 4.3 L RBC 3.98 L Hgb 11.1 L 11.4 L Hct 34.4 L 34.5 L Plt Count MPV 7.1 L 7.0 L Gran % 79.5 H Lymph # (Auto) 1.3 L 0.9 L Chloride Carbon Dioxide Glucose 290 H Phosphorus 2.4 L GGT 55 H Albumin Globulin 3.8 H Albumin/Globulin Ratio 0.9 L Triglycerides Meds: Medications Acetaminophen (Tylenol) 650 mg PO Q6 [facility] Albuterol/Ipratropium (Duoneb) 3 ml NEB Q6HRT [facility] Last Admin: 07/03/17 08:44 Dose: Not Given Amlodipine Besylate (Norvasc) 10 mg PO DAILY [facility] Last Admin: 07/03/17 08:29 Dose: 10 mg Carvedilol (Coreg) 25 mg PO BIDCC [facility] Last Admin: 07/03/17 08:30 Dose: 25 mg Cephalexin HCl (Keflex) 500 mg PO Q6H AISHA Clonidine HCl (Catapres) 0.2 mg PO BID [facility] Last Admin: 07/03/17 08:29 Dose: 0.2 mg Dextrose (Dextrose 50%) 0 ml IV UD PRN PRN Reason: Hypoglycemia Diagnostic Test (Pha) (Accu-Chek) 1 each FS ACHS [facility] Last Admin: 07/03/17 08:31 Dose: 1 each Furosemide (Lasix) 40 mg PO BIDD [facility] Gabapentin (Neurontin) 100 mg PO TID [facility] Last Admin: 07/03/17 08:30 Dose: 100 mg Glucose (Insta-Glucose) 15 gm PO PRN PRN PRN Reason: Hypoglycemia Heparin Sodium (Porcine) (Heparin) 5,000 unit SQ Q12 [facility] Last Admin: 07/03/17 08:30 Dose: 5,000 unit Hydromorphone HCl (Dilaudid) 2 mg PO Q4HP PRN PRN Reason: PAIN LEVEL 3-6 Last Admin: 07/03/17 08:56 Dose: 2 mg Potassium Chloride 40 meq/ (Sodium Chloride) 520 mls @ 130 mls/hr IV ONCE ONE Stop: 07/03/17 11:59 Last Admin: 07/03/17 10:49 Dose: 130 mls/hr Insulin Glargine (Lantus) 10 unit SQ BID [facility] Last Admin: 07/03/17 08:33 Dose: 10 unit Insulin Human Lispro (Humalog) 0 unit SQ ACHS [facility] PRN Reason: Protocol Last Admin: 07/03/17 08:32 Dose: 4 unit Naloxone HCl (Narcan) 0.1 mg IV Q2MIN PRN PRN Reason: Opiate Reversal Nortriptyline HCl (Pamelor) 25 mg PO [facility] Last Admin: 07/02/17 21:40 Dose: 25 mg Ondansetron HCl (Zofran) 4 mg IV Q6HP PRN PRN Reason: Nausea And Vomiting Potassium Chloride (Kdur) 20 meq PO TIDCC [facility] Last Admin: 07/03/17 08:30 Dose: 20 meq [facility]) [facility] Stop: 07/05/17 08:01 Last Admin: 07/03/17 08:30 Dose: 40 mg Salmeterol Xinafoate (Serevent) 1 puff INH BID [facility] Last Admin: 07/03/17 11:02 Dose: Not Given Silver Sulfadiazine (Silvadene) 1 dose TOPICAL DAILY [facility] Last Admin: 07/03/17 08:36 Dose: 1 dose Simvastatin (Zocor) 20 mg PO [facility] Last Admin: 07/02/17 21:40 Dose: 20 mg Sodium Chloride (Saline Flush) 10 ml IV Q8 [facility] Last Admin: 07/03/17 08:29 Dose: 10 ml Trimethoprim/Sulfamethoxazole (Bactrim Ds) 1 tab PO BID [facility] Last Admin: 07/03/17 10:49 Dose: 1 tab Medical - PN: A/P - Time Spent With Patient Total time spent is greater than 50% in coordination of care (as documented) at patient's floor/unit and/or counseling patient: - Narrative A/P Narrative: A/P Freeman lower extremity wounds/ Acute cellutlitis/ fascitis, : Appreciate surgery help, wound care,switch iv to oral agents, monitor, wound care as per surgery. Pain: freeman lower extremity pain: Oxycodone 5mg q4-6hrs switched to dilaudid oral , change iv to oral tylenol continue on nortrypline 25qhs, and neurontin 100mg tid. DM new onset, pt denies h/o DM in the past. hyperglycemia also secondary to steroid use, on lantus 10 bid and med sliding scale insulin. glucose control improving. HLD resume statin Renal failure: creat is 0.8, sonogram is neg, pt tolerating po well, renal sonogram is reported normal, d/c IVF. Depression: clinically seems depressed, consider she was supposed to follow up with psych as outpatient, but never did, declined anti depressant medications, will try to see if we can convince her again. HTN: resume home meds. BP high today. resume clonidine at 0.2mg bid, bp control much better now. DVT hep sq Diet regular Full code Medical - PN: Qual - VTE Deep Vein Thrombosis/Pulmonary Embolism Present on Admission: No
[2017-07-03] MEDS: CEPHALEXIN 500 MG CAPSULE PO SCH ×2 (11:37→17:48)
[2017-07-03] MEDS: ACETAMINOPHEN 325 MG TABLET PO SCH ×2 (12:01→17:48)
[2017-07-03] MEDS: FUROSEMIDE 40 MG TABLET PO SCH (16:44)
[2017-07-03] MEDS: NORTRIPTYLINE 25 MG CAPSULE PO SCH (21:23)
[2017-07-03] MEDS: SIMVASTATIN 20 MG TABLET PO SCH (21:24)
[2017-07-04] MEDS: ACETAMINOPHEN 325 MG TABLET PO SCH ×3 (00:02→11:57)
[2017-07-04] MEDS: CEPHALEXIN 500 MG CAPSULE PO SCH ×2 (00:02→05:52)
[2017-07-04] MEDS: IPRATROPIUM/ALBUTEROL 3 ML AMPUL.NEB NEB SCH ×2 (00:04→10:04)
[2017-07-04 04:58] LABS: Basophils # (Auto) 0 K/mcL (0.0-0.3); Basophils % (Auto) 0.1 % (0.0-2.0); Eosinophils # (Auto) 0 K/mcL (0.0-0.7); Eosinophils % (Auto) 0.5 % (0.0-7.0); Granulocytes % (Auto) 55.4 % (38.0-78.0); Lymphocytes # (Auto) 2.8 K/mcL (1.5-4.8); Lymphocytes % (Auto) 34.4 % (15.5-49.0); Mean Cell Volume 86.6 fL (80.0-100.0); Mean Corpuscular HGB Conc 32.3 g/dL (31.0-36.0); Mean Corpuscular Hemoglobin 27.9 pg (26.0-34.0); Monocytes # (Auto) 0.8 K/mcL (0.1-0.9); Monocytes % (Auto) 9.6 % (1.0-12.0); Platelet Count 482 K/mcL (140-440); RBC 4.22 M/mcL (4.00-5.20); Red Cell Distribution Width 14.4 % (11.5-14.5)
[2017-07-04 05:26] LABS: ALT/SGPT 9 U/l (0-40); Albumin 3.3 gm/dL (3.2-5.2); Alkaline Phosphatase 61 U/L (39-117); Bilirubin,Direct < 0.2 mg/dL (0.0-0.3); Blood Urea Nitrogen 22 mg/dl (8-23); Gamma Glutamyl Transpeptidase 53 U/L (5-36); Magnesium 2.2 mg/dL (1.6-2.5); Uric Acid 4.4 mg/dL (2.5-8.0)
[2017-07-04] MEDS: HYDROmorphone 2 MG TABLET PO PRN (05:52)
[2017-07-04] MEDS: 0.9 % SODIUM CHLORIDE 10 ML SYRINGE IV SCH (05:53)
[2017-07-04] MEDS: HEPARIN 5,000 UNIT/ML VIAL SQ SCH (08:19)
[2017-07-04] MEDS: INSULIN GLARGINE, HUMAN 1 UNIT/0.01 ML SQ SCH (08:19)
[2017-07-04] MEDS: POTASSIUM CHLORIDE 20 MEQ TABLET PO SCH ×2 (08:19→11:57)
[2017-07-04] MEDS: INSULIN LISPRO 1 UNIT/0.01 ML UNIT SQ SCH ×3 (08:19→12:00)
[2017-07-04] MEDS: amLODIPine 10 MG TABLET PO SCH (08:20)
[2017-07-04] MEDS: predniSONE 20 MG TABLET PO SCH (08:20)
[2017-07-04] MEDS: cloNIDine HCL 0.1 MG TABLET PO SCH (08:20)
[2017-07-04] MEDS: FUROSEMIDE 40 MG TABLET PO SCH (08:20)
[2017-07-04] MEDS: SULFAMETHOXAZOLE/TRIMETHOPRIM 1 TABLET PO SCH (08:20)
[2017-07-04] MEDS: CARVEDILOL 12.5 MG TABLET PO SCH (08:20)
[2017-07-04] MEDS: GABAPENTIN 100 MG CAPSULE PO SCH (08:21)
[2017-07-04] MEDS: SILVER SULFADIAZINE CREAM.TOP 400GM TOPICAL SCH (09:30)
--- NOTE | 2017-07-04 09:45 | Operative Note ---
DATE OF OPERATION: 06/30/2017 PREOPERATIVE DIAGNOSIS: Bilateral lower extremity venous stasis ulcers with skin necrosis. POSTOPERATIVE DIAGNOSIS: Bilateral lower extremity venous stasis ulcers with skin necrosis. PROCEDURE PERFORMED: Debridement of bilateral lower extremity venous stasis ulcers. SURGEON: Diann Jimenez MD ANESTHETIC: General laryngeal mask anesthesia. INDICATIONS FOR PROCEDURE: The patient is a 66-year-old woman who was admitted to the hospital last night with bilateral lower extremity venous stasis ulcers that had not been adequately cared for over the past several months. She is brought to the operating room today for debridement of these wounds, given the necrotic tissue present on the legs as well as foul odor coming from the wounds. DESCRIPTION OF PROCEDURE: After obtaining informed consent, the patient was taken to the operating room where a timeout was taken to confirm that she was here for the above-stated procedure. She was already on antibiotics preoperatively from admission for treatment of her cellulitis. She was placed in supine position on the operating table, and general laryngeal mask anesthesia was induced. The legs were prepped and draped in a sterile manner bilaterally. Once the procedure began the legs were each individually scrubbed with Betadine scrub solution circumferentially of the lower legs bilaterally. This maneuver removed a significant amount of the superficial skin. This included much of the obvious necrotic skin that was seen initially on exam. Underlying the skin there appeared to be beginning buds of some granulation tissue that started to bleed. The residual areas of necrotic superficial skin that did not come loose with the initial scrubbing were then debrided using a curet. This was done to both legs. The legs were then irrigated with saline bilaterally. Pressure with sponge gauze was applied for the oozing coming from the underlying healthy tissue. The legs were then each dressed with Silvadene ointment circumferentially around the legs to cover all the wounds and some of the cellulitic skin in between. Each of the legs was then wrapped with Kerlix roll gauze. Sponge and needle counts were correct at the end of the case. The patient tolerated the procedure well. Post-procedurally, she was recovered in the operating room due to multi-drug resistant organism status. The patient did require supplemental O2 during her recovery to maintain her saturations. From the recovery she was transferred to telemetry unit. RC:radha Job ID: [id number] Doc ID: [id number] Diann Jimenez MD
--- NOTE | 2017-07-04 10:04 | General Surgery Progress Note ---
Surgical - Auxillary Note - Subjective Patient Information: Note initiated : 07/04/17 at 9:56 am Service Date, if different from initiated Date: [] Patient: Cony Baig 66 y/o F admitted on 06/29/17 for Wilder Lower Extremity Wounds/ Acute Cellulitis. Chief Complaint: [] Patient in bed. Has already showered and cleaned legs of silvadene. Reports she was able to get a better washing of the left leg today. Pain in legs bilaterally still as expected. Vital Signs Temp Pulse Resp BP Pulse Ox 98.8 F 77 20 168/85 93 07/04/17 07:17 07/04/17 04:00 07/04/17 07:17 07/04/17 07:17 07/04/17 07:17 Period Temp Pulse Resp BP Sys/Najera Pulse Ox Last 24 Hr 96.6 F-98.8 F 67-77 16-20 128-170/68-92 91-97 Intake and Output 07/03/17 07/04/17 07/04/17 21:59 05:59 13:59 Intake Total 1790 / 1790 690 / 690 800 / 800 Output Total 800 / 800 75 / 75 700 / 700 Balance 990 / 990 615 / 615 100 / 100 Weight 249 lb 8 oz PE: No distress. Focused exam of lower extremities bilaterally shows some fibrinous exudate on surface of wounds bilaterally, Rt > Lt, but wounds without necrotic tissue. Erythema of lower legs about the same today as yesterday--suspect some of this is baseline venous stasis changes. Small amount of the fibrinous exudate taken and sent for culture. Wounds redressed with Silvadene. A/P: Bilateral lower extremity wounds. Repeat culture of wounds done now that surface contamination is well cleaned off to see if deeper bed grows additional pathogen. Silvadene dressings done at this point as better tolerated due to pain. Will need removal of fibrinous exudate. Patient has shown motivation during this hospitalization in cleaning her wounds in the shower. Recommend having her try cleansing her wounds daily with gentle abrasion (i.e. scrub brush used lightly) which may be tolerated and avoid repeated trips to OR for debridement as her lungs are not ideal for repeated anesthesia. She will follow up as an outpatient in Wound care clinic. Appointment scheduled for tomorrow morning.
--- NOTE | 2017-07-04 11:02 | Discharge Summary ---
Medical - DS: Prov Patient information: Note initiated : 07/04/17 at 10:56 am Service Date, if different from initiated Date: [] Patient: Cony Baig 66 y/o F admitted on 06/29/17 for Wilder Lower Extremity Wounds/ Acute Cellulitis. Chief Complaint: [] Date of admission: 06/29/17 23:22 Discharge date: 07/04/17 Primary care physician: Carmen Philip Admitting clinician: Hernán Dye Consults: 06/30/17 09:08 Consult to Physician [CONS] Routine Comment: Consulting Provider: Diann Jimenez Reason For Exam: Physician to Consult Discharging clinician: Hernán Dye Medical - DS: Meds - Discharge Medications Prescriptions: Cephalexin [Keflex] 500 mg PO Q6 #40 cap Gabapentin [Neurontin] 100 mg PO TID #90 cap Hydrocodone/APAP 7.5/325Mg [[place] 7.5/325Mg] 1 tab PO Q4HP PRN #40 tab PRN Reason: Pain Nortriptyline [Pamelor] 25 mg PO HS #30 cap Sulfamethoxazole/Trimethoprim [Bactrim Ds] 1 tab PO BID #20 tab Active and Home Medications: Home Medications Albuterol Sulfate [Proair Hfa] 8.5 gm IH Q4 04/28/16 [History Confirmed Last Taken 06/29/17 19:00 2 puffs] Carvedilol [Coreg] 25 mg PO BID 04/28/16 [History Confirmed 06/29/17 Last Taken 06/29/17 09:00] Furosemide [Lasix] 40 mg PO BID 04/28/16 [History Confirmed 06/29/17 Last Taken 06/29/17 09:00] HYDROcodone/APAP 5/325MG [[place] 5/325Mg] 1 tab PO Q6HP PRN 04/28/16 [History Confirmed 06/29/17 Last Taken 05/05/16 08:00] Lovastatin [Altoprev] 40 mg PO DAILY 04/28/16 [History Confirmed 06/30/17 Last Taken 06/28/17 22:00] Potassium Chloride [Kdur] 20 meq PO TIDCC 04/28/16 [History Confirmed 06/30/17 Last Taken 06/29/17 12:00] Salmeterol Xinafoate [Serevent] 50 mcg IH BID 04/28/16 [History Confirmed Last Taken 04/10/16 00:00] amLODIPine BESYLATE [Amlodipine Besylate] 10 mg PO DAILY 04/28/16 [History Confirmed 06/30/17 Last Taken 06/29/17 09:00] cloNIDine HCL [Catapres] 0.6 mg PO BID 04/28/16 [History Confirmed 06/29/17 Last Taken 06/29/17 09:00] Ergocalciferol (Vitamin D2) [Vitamin D2] 50,000 unit PO WEEKLY 05/07/16 [ History Confirmed 06/30/17 Last Taken 06/01/17 09:00] Medical - DS: Hosp Hospital course: Ms. Baig is a 66 year old Female with history of chronic bronchitis, hypertension and obesity presented to the ER to with complaints of worsening wounds of both her legs. According to the patient, she has been having blisters n both lower extremities. She attributes these blisters gel injections in her knee, which were given to her for osteoarthritis. She tried to take care of these boosters at home using hydroperoxide, however they continued to progress, she never asked for help. The wounds started to rapidly getting worse over last 2 months. The patient has been having pain in both her lower extremities, and she has been taking ibuprofen approx 600mg four to 5 times a day. Over the last 2 weeks she has also been having a sinus infection, some cough, and shortness of breath. She was unable to manage the wounds by her self and therefore came in today for evaluation and help The patient lives with her , who is legally as per her and live in the same house, pt notes that they want to separate but cannot afford crisis clinician fees. She notes that her son 28 yr old was killed / in July and since then she has not been doing well. She attributes the of her son as the main reason she did not seek help earlier In the ER the patient was afebrile, she had both legs covered in dressing, which was draining profusely and was smelling bad, her X Ray chest is neg, labs show creat of 1.7. She was admitted to the hospital for further management. Bilateral Lower extremity Wounds/ Cellulitis: Patient had significant cellulitis / and necrotic material in both lower extremities. The patient was started on Broad spectrum antibiotics, IV vancomycin and IV zosyn. Wound cultures grew Providencia species,no pseudomonas was noted. Given that these wounds are notoriously polymicrobial with predominantly gram positive organisms. Antibiotics were switched to keflex and bactrim. The patient had no systemic signs of infection and so IV antibiotics are not warranted at this time. General surgery was consulted for management of aggressive cellulitis, Patient was taken to the OR and wound cleaned and debrided. Patient dressing have been changed daily by Surgery using silvadene cream. The patient seems to have tolerated this well. The patient had significant pain during the hospital stay secondary to infection , she will be discharged on hydrocodone 7.5-325 q4prn which she says has worked well for her. She is also on gabapentin 100mg tid, and nortryptline 25qhs. The patient has scheduled appointment with wound care clinic tomorrow AM DM: The Patient denies any history of DM, her A1c here was 7.1, I have not started her on any medications as her glucose has reamined well controlled, some hyperglycemia secondary to steroids was improving. She will follow up with her PCP for further management. COPD exacerbation: The patient has copd/ chr bronchitis, after surgery she had some flare up of same. She responded very well to short course of steroids and duonebs, She will continue her home inhaler regime at discharge. Depression: patient does have depression, after the loss of her son, which likely lead to her present status, she need outpatient mental health help, which she notes she has. She has declined help from this provider, and refused anti depressant medications. None the less the TCA for pain may be useful for her depression too. If needed TCA can be stopped if another ssri is considered by PCP or Mental health provider. The patient has some mild FAITH on admission, which resolved with fluids, advised to avoid nephrotoxic drugs, NSAIDs in future, renal sonogram was negative. At the time of discharge, patient is back to baseline status, no complaints, tolerating po well, she refused home health as well as PT Discharge diagnosis: Cellulitis. COPD exacerbation - Time Spent with Patient Total time spent providing and/or coordinating discharge services: Greater than 30 minutes Medical - DS: Exam - Constitutional Vitals: Vital Signs Temp Pulse Pulse Resp BP BP Pulse Ox 07/04/17 07:17 98.8 F 20 168/85 93 12/26/17 04:00 98.4 F 77 20 170/84 93 07/04/17 00:00 98.1 F 67 20 164/92 94 07/03/17 19:31 98.7 F 77 20 160/84 91 07/03/17 16:00 96.6 F L 18 138/90 96 07/03/17 13:05 74 16 07/03/17 13:03 93 07/03/17 12:00 98.6 F 128/68 97 Intake and Output 07/03/17 07/04/17 07/04/17 21:59 05:59 13:59 Intake Total 1790 / 1790 690 / 690 800 / 800 Output Total 800 / 800 75 / 75 700 / 700 Balance 990 / 990 615 / 615 100 / 100 Intake: IV 520 / 520 Oral 1270 / 1270 690 / 690 800 / 800 Output: Void Amount 800 / 800 75 / 75 700 / 700 Other: Meal Dinner Percent of Meal Consumed 100% # Voids 1 # Bowel Movements 1 Weight 249 lb 8 oz Additional comments: Constitutional; Afebrile, cooperative, alert, not in distress. Eyes- No icterus, , No periorbital swelling Ears- Ext ear normal, hearing normal to conversation. Neck- Midline trachea, supple Respiratory system: Air Entry equal on both sides, No crackles or wheezing, no rhonchi. CVS- Rate rhythm regular, S1,S2 heard, no gallop, no rub. 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 Medical - DS: Data Procedures and tests throughout hospitalization: CXR chest IMPRESSION: Mild cardiomegaly and mild bibasilar atelectasis Right tibia x ray IMPRESSION: Moderate diffuse soft tissue swelling, most prominent in the lateral upper calf, compatible cellulitis/fasciitis Severe degenerative change - medial compartment tibiofemoral joint Left tibia IMPRESSION: Moderate soft tissue swelling, predominantly in the upper calf, compatible with the clinical diagnosis of cellulitis/fasciitis. Moderate degenerative change - tibiofemoral patellofemoral joints Renal Sonogram IMPRESSION: Normal exam Labs on day of discharge: Labs from last 24 hours 07/04/17 07/04/17 04:05 04:05 WBC 8.2 RBC 4.22 Hgb 11.8 L Hct 36.5 MCV 86.6 MCH 27.9 MCHC 32.3 RDW 14.4 Plt Count 482 H MPV 6.6 L Gran % 55.4 Lymph % (Auto) 34.4 [place] % (Auto) 9.6 Eos % (Auto) 0.5 Baso % (Auto) 0.1 Gran # 4.5 Lymph # (Auto) 2.8 [place] # (Auto) 0.8 Eos # (Auto) 0 Baso # (Auto) 0 Sodium 138 Potassium 4.1 Chloride 94 L Carbon Dioxide 30 Anion Gap 14.0 BUN 22 Creatinine 0.8 GFR Calculation 78 Glucose 137 H Uric Acid 4.4 Calcium 8.7 Phosphorus 3.8 Magnesium 2.2 Total Bilirubin 0.2 Direct Bilirubin < 0.2 GGT 53 H AST 8 ALT 9 Alkaline Phosphatase 61 Lactate Dehydrogenase 197 Total Protein 6.5 Albumin 3.3 Globulin 3.2 Albumin/Globulin Ratio 1.0 Triglycerides 342 H Preliminary micro results at discharge 06/29/17 21:16 Blood Culture - Preliminary Blood 06/29/17 21:28 Blood Culture - Preliminary Blood Medical - DS: A/P - Patient/Caregiver Discharge Instructions Activity: increase activity as tolerated Diet: Consistent Carbohydrate Additional Instructions: You presented to the hosptial with serious infections of both lower legs Please follow up with wound care tomorrow for continued care Take antibiotics as prescribed for another 10 days You have been started on new pain medications for your nerve / sever lower extremity pain, gabapentin 100mg tid, and nortrypline 25. You have also been prescribed norco 7.5/325 every 4 hrs as needed. Please follow up with your PCP for further dose titration / weaning off as needed. Avoid nephrotoxic medications, NSAIDS as they can damage your kidneys. Follow up with PCP in 1 week Please call and set up appointment with your mental health provider. Go to the ER if worsening symptoms or any other acute concern. - Follow up Plan Follow up with: Carmen Philip DO [Primary Care Provider] - Disposition: Home, Self-Care Prognosis: Fair Rehab Potential: Fair I certify that the patient requires SNF services: No Overall status at discharge: patient is progressing back to baseline Medical - DS: Qual - VTE Deep Vein Thrombosis/Pulmonary Embolism Present on Admission: No
[2017-07-04] MEDS: SALMETEROL XINAFOATE 1 PUFF INHALER INH SCH (11:09)
[2017-07-04] MEDS ORDERED: CEPHALEXIN 250 MG CAPSULE PO SCH (12:00)
== END 2017-07-04 13:25 | disposition home or self-care (01) | DRG 603 ==
LOC: ED 19:31 → MEDSUR 23:22 → ICU 06-30 14:36 → MEDSUR 07-02 14:18
PROVIDERS: ADMIT Internal Medicine; ATTEND Internal Medicine

== ENCOUNTER 2018-08-22 10:19 | Inpatient (IN) ==
[2018-08-22] MEDS ORDERED: IOPAMIDOL 100 ML BOTTLE IV ONE (10:20)
[2018-08-22] MEDS ORDERED: LACTATED RINGERS 1,000 ML IV ONE (10:40)
[2018-08-22] MEDS ORDERED: cefTAZidime 1 GM VIAL IV SCH (10:45)
--- NOTE | 2018-08-22 10:46 | Emergency Department Note ---
Extremity Problem HPI - General Chief complaint: Extremity Problem,Nontraumatic Stated complaint: Open sore to right leg Time Seen by Provider: 08/22/18 10:21 Source: EMS Mode of arrival: EMS Limitations: no limitations - History of Present Illness HPI Narrative: Patient complains of pain and an open sore to the right lower leg which she's had for the last 3 weeks. She believes she may have bumped herself, had a small ulceration which has then spread. Denies fevers or chills, she does have a little bit of a cough, denies chest pain denies shortness of breath denies nausea or vomiting. arrives EMS, she states she was staying at her exes house for the last 2 weeks. Normally lives by herself. No diarrhea, she has been treated by wound care in the past, has a wrap on the left leg which she states is healed. - Related Data Home Medications Medication Instructions Recorded Confirmed Albuterol Sulfate [Proair Hfa] 8.5 gm IH Q4 04/28/16 08/22/18 Carvedilol [Coreg] 25 mg PO BID 04/28/16 08/22/18 Furosemide [Lasix] 40 mg PO BID 04/28/16 08/22/18 Lovastatin [Altoprev] 40 mg PO DAILY 04/28/16 08/22/18 Potassium Chloride [Kdur] 20 meq PO TIDCC 04/28/16 08/22/18 Salmeterol Xinafoate [Serevent] 50 mcg IH BID 04/28/16 08/22/18 cloNIDine HCL [Catapres] 0.6 mg PO BID 04/28/16 08/22/18 Ergocalciferol (Vitamin D2) 50,000 unit PO WEEKLY 05/07/16 08/22/18 [Vitamin D2] Previous Rx's Medication Instructions Recorded Gabapentin [Neurontin] 100 mg PO TID #90 cap 07/04/17 Albuterol Sulfate [Ventolin] 2.5 mg NEB Q4HP PRN #120 ampul.neb 02/23/18 Allergies Allergy/AdvReac Type Severity Reaction Status Date / Time lidocaine AdvReac Intermediate Muscle Pain Verified 08/22/18 10:20 morphine AdvReac Intermediate Vomiting Verified 08/22/18 10:20 wool AdvReac Intermediate Rash Verified 02/13/19 10:20 tramadol AdvReac Mild Vomiting Verified 08/22/18 10:20 Review of Systems All systems ED: reviewed and negative except as stated. 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 Absent: tenderness Respiratory: Present: normal lung sounds bilaterally. Absent: respiratory distress, rales/crackles Cardiovascular: Present: regular rate, normal rhythm Abdominal: Present: soft, normal bowel sounds. Absent: distention, tenderness, guarding Extremities: Present: full ROM, tenderness, calf tenderness, other ( skin is missing to the right lower leg almost like a degloving injury of at least one half of the right lower leg. Significant erythema weeping and very foul odor present as well.) Back: Present: normal inspection. Absent: CVA tenderness (R), CVA tenderness (L) Neurological: Present: alert, oriented X3, CN II-XII intact Psychiatric: Present: normal affect Skin: Present: warm, dry, erythema, other (degloving injury and cellulitic changes with skin necrosis as above.) Course - Reevaluation(s) Reevaluation #1: Patient started on IV fluids, antibiotics as well. Discussed the case with Dr. Escalante and she will be admitted to the hospital. Sedimentation rate was elevated. She may need further wound care, wound care issues A, Dr. Escalante recommended getting a CT scan of the right lower extremity runoff. Vital Signs Temperature 97.2 F 08/22/18 10:20 Pulse Rate 91 H 08/22/18 10:20 Respiratory Rate 22 08/22/18 10:20 Blood Pressure 165/107 08/22/18 10:20 Pulse Oximetry (%) 96 08/22/18 10:20 Temperature 97.2 F 08/22/18 10:20 Pulse Rate 91 H 08/22/18 10:20 Respiratory Rate 22 08/22/18 10:20 Blood Pressure 165/107 08/22/18 10:20 Pulse Oximetry (%) 96 08/22/18 10:20 Extremity Problem, Nontraumati - [facility] Narrative Medical decision making narrative: Impression is cellulitis right lower extremity. - Lab Data Result diagrams: 08/22/18 11:00 08/22/18 11:00 Lab Results 08/22/18 08/22/18 08/22/18 Range/Units 11:00 11:00 11:00 WBC 9.6 (4.5-11.0) K/mcL RBC 4.70 (4.00-5.20) M/mcL Hgb 13.5 (12.0-15.0) g/dL Hct 41.5 (36.0-48.0) % MCV 88.3 (80.0-100.0) fL MCH 28.6 (26.0-34.0) pg MCHC 32.4 (31.0-36.0) g/dL RDW 13.7 (11.5-14.5) % Plt Count 392 (140-440) K/mcL MPV 7.1 L (7.4-10.4) fL Gran % 63.9 (38.0-78.0) % Lymph % (Auto) 24.7 (15.5-49.0) % [place] % (Auto) 7.1 (1.0-12.0) % Eos % (Auto) 3.8 (0.0-7.0) % Baso % (Auto) 0.5 (0.0-2.0) % Gran # 6.2 (1.8-8.0) K/mcL Lymph # (Auto) 2.4 (1.5-4.8) K/mcL [place] # (Auto) 0.7 (0.1-0.9) K/mcL Eos # (Auto) 0.4 (0.0-0.7) K/mcL Baso # (Auto) 0 (0.0-0.3) K/mcL ESR 99 H (0-20) mm/hr VBG Lactic Acid (0.5-2.0) mmol/L Sodium 139 (133-145) mmol/L Potassium 3.9 (3.3-5.1) mmol/L Chloride 98 (96-108) mmol/L Carbon Dioxide 29 (22-30) mmol/L Anion Gap 12.0 (8-16) BUN 13 (8-23) mg/dl Creatinine 0.9 (0.6-1.1) mg/dl GFR Calculation 67 Glucose 200 H (70-105) mg/dL Calcium 9.6 (8.6-10.4) mg/dl Total Bilirubin 0.2 (0.0-1.0) mg/dL AST 8 (0-37) U/l ALT 6 (0-40) U/l Alkaline Phosphatase 88 (39-117) U/L Troponin T < 0.01 (0-0.03) ng/ml NT-Pro-B Natriuret Pep 1002.0 H (0-125) pg/ml Total Protein 7.4 (5.9-8.4) gm/dL Albumin 3.4 (3.2-5.2) gm/dL Globulin 4.0 H (2.2-3.7) gm/dL Albumin/Globulin Ratio 0.9 L (1.0-2.3) Urine Color Urine Appearance Urine pH (5.0-9.0) Ur Specific [place] (1.000-1.035) Urine Protein (NEG) mg/dL Urine Glucose (UA) (NEG) mg/dL Urine Ketones (NEG) mg/dL Urine Occult Blood (<0.03) mg/dL Urine Nitrate (NEG) Urine Bilirubin (NEG) mg/dL Urine Urobilinogen (NEG) mg/dL Ur Leukocyte Esterase (NEG) /uL Ur Culture Indicated? 08/22/18 08/22/18 Range/Units 11:00 11:33 WBC (4.5-11.0) K/mcL RBC (4.00-5.20) M/mcL Hgb (12.0-15.0) g/dL Hct (36.0-48.0) % MCV (80.0-100.0) fL MCH (26.0-34.0) pg MCHC (31.0-36.0) g/dL RDW (11.5-14.5) % Plt Count (140-440) K/mcL MPV (7.4-10.4) fL Gran % (38.0-78.0) % Lymph % (Auto) (15.5-49.0) % [place] % (Auto) (1.0-12.0) % Eos % (Auto) (0.0-7.0) % Baso % (Auto) (0.0-2.0) % Gran # (1.8-8.0) K/mcL Lymph # (Auto) (1.5-4.8) K/mcL [place] # (Auto) (0.1-0.9) K/mcL Eos # (Auto) (0.0-0.7) K/mcL Baso # (Auto) (0.0-0.3) K/mcL ESR (0-20) mm/hr VBG Lactic Acid 1.7 (0.5-2.0) mmol/L Sodium (133-145) mmol/L Potassium (3.3-5.1) mmol/L Chloride (96-108) mmol/L Carbon Dioxide (22-30) mmol/L Anion Gap (8-16) BUN (8-23) mg/dl Creatinine (0.6-1.1) mg/dl GFR Calculation Glucose (70-105) mg/dL Calcium (8.6-10.4) mg/dl Total Bilirubin (0.0-1.0) mg/dL AST (0-37) U/l ALT (0-40) U/l Alkaline Phosphatase (39-117) U/L Troponin T (0-0.03) ng/ml NT-Pro-B Natriuret Pep (0-125) pg/ml Total Protein (5.9-8.4) gm/dL Albumin (3.2-5.2) gm/dL Globulin (2.2-3.7) gm/dL Albumin/Globulin Ratio (1.0-2.3) Urine Color Straw Urine Appearance Clear Urine pH 7.0 (5.0-9.0) Ur Specific [place] 1.010 (1.000-1.035) Urine Protein Neg (NEG) mg/dL Urine Glucose (UA) Negative (NEG) mg/dL Urine Ketones Neg (NEG) mg/dL Urine Occult Blood Neg (<0.03) mg/dL Urine Nitrate Neg (NEG) Urine Bilirubin Neg (NEG) mg/dL Urine Urobilinogen Neg (NEG) mg/dL Ur Leukocyte Esterase Neg (NEG) /uL Ur Culture Indicated? No Disposition Pt seen by SAFETY TRAINER/PA only: No Clinical Impression: Cellulitis Disposition: Xfer As Inpt ([facility]) Referrals: Roxana Oliveira ARNP [Primary Care Provider] -
--- NOTE | 2018-08-22 11:05 | XRay Report ---
INDICATION: Fever TECHNIQUE: AP chest x-ray,portable upright COMPARISON: Previous examination dated 06/30/2017, 06/29/2017 FINDINGS:No focal pulmonary parenchymal infiltrate or mass. Lungs are negative bilaterally. Heart size and vascularity are normal. No pulmonary edema. No pulmonary congestion. Milly and mediastinum are negative. No pleural fluid. IMPRESSION: 1. No acute or focal abnormality 2. No interval change since 06/29/2017 Interpreted and Authenticated by: Rhys Cassidy 08/22/18
[2018-08-22 11:28] LABS: Basophils # (Auto) 0 K/mcL (0.0-0.3); Basophils % (Auto) 0.5 % (0.0-2.0); Eosinophils # (Auto) 0.4 K/mcL (0.0-0.7); Eosinophils % (Auto) 3.8 % (0.0-7.0); Granulocytes % (Auto) 63.9 % (38.0-78.0); Lymphocytes # (Auto) 2.4 K/mcL (1.5-4.8); Lymphocytes % (Auto) 24.7 % (15.5-49.0); Mean Cell Volume 88.3 fL (80.0-100.0); Mean Corpuscular HGB Conc 32.4 g/dL (31.0-36.0); Monocytes # (Auto) 0.7 K/mcL (0.1-0.9); Monocytes % (Auto) 7.1 % (1.0-12.0); Platelet Count 392 K/mcL (140-440); Red Cell Distribution Width 13.7 % (11.5-14.5)
[2018-08-22 11:49] LABS: ALT/SGPT 6 U/l (0-40); Albumin 3.4 gm/dL (3.2-5.2); Albumin/Globulin Ratio 0.9 (1.0-2.3); Alkaline Phosphatase 88 U/L (39-117); Blood Urea Nitrogen 13 mg/dl (8-23)
[2018-08-22] MEDS ORDERED: ACETAMINOPHEN W/CODEINE #3 1 TABLET PO ONE (12:08)
[2018-08-22] MEDS ORDERED: HYDROmorphone 2 MG/ML VIAL IV ONE (12:09)
[2018-08-22 12:10] LABS: Erythrocyte Sedimentation Rate 99 mm/hr (0-20)
[2018-08-22 12:16] LABS: Appearance,Urine CLEAR; Bilirubin,Urine NEG (NEG); Color,Urine STRAW; Glucose,Urine (UA) NEGATIVE (NEG); Leukocyte Esterase,Urine NEG /uL (NEG); Protein,Urine NEG (NEG); Urine Blood NEG mg/dL (<0.03); Urobilinogen,Urine NEG (NEG)
[2018-08-22] MEDS ORDERED: VANCOMYCIN 1,000 MG in 0.9 % SODIUM CHLORIDE 250 ML IV SCH (13:00)
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
--- NOTE | 2018-08-22 13:46 | Cat Scan Report ---
CLINICAL INFORMATION: Fasciitis TECHNIQUE: Axial contrast enhanced images through the right lower extremity. Sagittal and coronal reformatted images. 90 mL contrast material injected COMPARISON: None. FINDINGS: Right tibia and fibula are negative. No fracture. No lytic lesion. No evidence for osteomyelitis. Talus and calcaneus are normal. Tarsal bones are negative. Metatarsal bones are also negative. There is subcutaneous edema from the mid calf through the foot. There is infiltration of subcutaneous fat consistent with cellulitis. No focal fluid collection. No soft tissue mass. Vascular structures enhance normally. There is no soft tissue gas. There is no radiopaque foreign body. There is no soft tissue abscess. IMPRESSION: 1. Subcutaneous edema from the mid calf to the foot. Findings are consistent with cellulitis. 2. No focal fluid collection or soft tissue mass. No soft tissue gas 3. No evidence for osteomyelitis Interpreted and Authenticated by: Rhys Cassidy 08/22/18
[2018-08-22] MEDS ORDERED: ACETAMINOPHEN 325 MG TABLET PO PRN (15:26)
[2018-08-22] MEDS ORDERED: MAGNESIUM SULFATE 2 GM/50 ML BAG IV PRN (15:26)
[2018-08-22] MEDS ORDERED: ALBUTEROL SULFATE 2.5 MG/3 ML NEBULIZER NEB PRN (15:26)
[2018-08-22] MEDS ORDERED: ACETAMINOPHEN 1,000 MG/100 ML BOTTLE IV PRN (15:26)
[2018-08-22] MEDS ORDERED: POTASSIUM CHLORIDE 20 MEQ PACKET PO PRN (15:26)
[2018-08-22] MEDS ORDERED: VANCOMYCIN PER PHARMACY IV SCH (15:26)
[2018-08-22] MEDS ORDERED: ONDANSETRON 4 MG/2 ML VIAL IV PRN (15:26)
[2018-08-22] MEDS: GABAPENTIN 100 MG CAPSULE PO SCH ×2 (16:00→21:18)
[2018-08-22] MEDS: HYDROcodone/APAP 5/325MG TABLET PO PRN (16:00)
[2018-08-22] MEDS ORDERED: ALBUTEROL SULFATE 1 PUFF INHALER IH PRN ×2 (16:00→17:15)
[2018-08-22] MEDS: 0.9 % SODIUM CHLORIDE 10 ML SYRINGE IV SCH ×2 (16:00→21:19)
[2018-08-22] MEDS ORDERED: VANCOMYCIN 500 MG in 0.9 % SODIUM CHLORIDE 100 ML IV ONE (16:30)
[2018-08-22] MEDS: PIPERACILLIN SODIUM/TAZOBACTAM 3.375 GM in DEXTROSE 5% IN WATER 50 ML IV SCH ×2 (17:30→20:42)
[2018-08-22 17:34] LABS: Estimated Average Glucose(eAG) 171 mg/dL; Hemoglobin A1C 7.6 % HGB (4.0-6.0)
[2018-08-22] MEDS: CARVEDILOL 12.5 MG TABLET PO SCH (17:40)
[2018-08-22] MEDS: POTASSIUM CHLORIDE 10 MEQ TABLET PO SCH (17:41)
[2018-08-22 17:46] LABS: C-Reactive Protein 6.7 mg/dl (0.0-0.8)
[2018-08-22 17:56] LABS: Ferritin 184.1 ng/ml (30-400)
--- NOTE | 2018-08-22 20:09 | General Surgery Consult Note ---
History of Present Illness Patient information: Note initiated : 08/22/18 at 8:04 pm Service Date, if different from initiated Date: [] Patient: Cony Baig 67 y/o F admitted on 08/22/18 for Open Sore To Right Leg. Chief Complaint: [] Consult date: 08/22/18 Requesting physician: Salvador Galdamez (Wound Care / Management) History of present illness: I saw patient in Room 126 along with nursing staff. Case discussed with Dr. Galdamez. Patient admitted via ER with worsening skin infection of Right leg. Patient has h/o symptomatic varicose veins and phlebitis in past. She had missed f/u appointments at wound care clinic. Denies any acute cardiac, respiratory, neurologic, GI and complaints. Medications and Allergies Home Medications Medication Instructions Recorded Confirmed Type Albuterol Sulfate [Proair Hfa] 8.5 gm IH Q4 04/28/16 08/22/18 History Carvedilol [Coreg] 25 mg PO BID 04/28/16 08/22/18 History Furosemide [Lasix] 40 mg PO BID 04/28/16 08/22/18 History Lovastatin [Altoprev] 40 mg PO DAILY 04/28/16 08/22/18 History Potassium Chloride [Kdur] 20 meq PO TIDCC 04/28/16 08/22/18 History Salmeterol Xinafoate [Serevent] 50 mcg IH BID 04/28/16 08/22/18 History cloNIDine HCL [Catapres] 0.6 mg PO BID 04/28/16 08/22/18 History Ergocalciferol (Vitamin D2) 50,000 unit PO WEEKLY 05/07/16 08/22/18 History [Vitamin D2] Gabapentin [Neurontin] 100 mg PO TID #90 cap 07/04/17 08/22/18 Rx Albuterol Sulfate [Ventolin] 2.5 mg NEB Q4HP PRN #120 ampul.neb 02/23/18 08/22/18 Rx Allergies Allergy/AdvReac Type Severity Reaction Status Date / Time lidocaine AdvReac Intermediate Muscle Pain Verified 08/22/18 10:20 morphine AdvReac Intermediate Vomiting Verified 08/22/18 10:20 wool AdvReac Intermediate Rash Verified 08/22/18 10:20 tramadol AdvReac Mild Vomiting Verified 08/22/18 10:20 Exam Temp Pulse Resp BP Pulse Ox 97.8 F 93 H 22 166/97 94 08/22/18 17:00 08/22/18 17:00 08/22/18 17:00 08/22/18 17:00 08/22/18 17:00 - General physical appearance well developed, well nourished, no distress, moderate pain, other (Discomfort and itching RIGHT leg . ) - Eyes PERRL, normal ocular movement - ENT normal pinna, normal nares, normal mucosa, no congestion - Head Head exam IM: Present: atraumatic, normal inspection, normocephalic - Neck no masses, no bruits, no venous distension - Cardiovascular Cardiovascular exam IM: Present: normal rate and rhythm - Respiratory normal expansion, normal respiratory effort, clear to auscultation - Abdomen Abdomen: Present: soft, non tender, bowel sounds - Integumentary Present: other (Dermatitis, CELLULITIS right leg with lymphorrhea. Thick deformed mycotic toenails both feet) - Neurologic Present: normal coordination, normal sensation, other (Non focal neurological examination) - Musculoskeletal Present: normal gait - Psychiatric Present: oriented to time, oriented to person, oriented to place, speech is normal Results - Labs 08/22/18 11:00 08/22/18 11:00 Abnormal lab results 08/22/18 08/22/18 08/22/18 Range/Units 11:00 11:00 16:30 MPV 7.1 L (7.4-10.4) fL ESR 99 H 97 H (0-20) mm/hr Glucose 200 H (70-105) mg/dL Hemoglobin A1c (4.0-6.0) % HGB C-Reactive Protein (0.0-0.8) mg/dl NT-Pro-B Natriuret Pep 1002.0 H (0-125) pg/ml Globulin 4.0 H (2.2-3.7) gm/dL Albumin/Globulin Ratio 0.9 L (1.0-2.3) 08/22/18 08/22/18 Range/Units 16:30 16:30 MPV (7.4-10.4) fL ESR (0-20) mm/hr Glucose (70-105) mg/dL Hemoglobin A1c 7.6 H (4.0-6.0) % HGB C-Reactive Protein 6.7 H (0.0-0.8) mg/dl NT-Pro-B Natriuret Pep (0-125) pg/ml Globulin (2.2-3.7) gm/dL Albumin/Globulin Ratio (1.0-2.3) Diabetes panel 08/22/18 08/22/18 Range/Units 11:00 16:30 Sodium 139 (133-145) mmol/L Potassium 3.9 (3.3-5.1) mmol/L Chloride 98 (96-108) mmol/L Carbon Dioxide 29 (22-30) mmol/L BUN 13 (8-23) mg/dl Creatinine 0.9 (0.6-1.1) mg/dl Glucose 200 H (70-105) mg/dL Hemoglobin A1c 7.6 H (4.0-6.0) % HGB Calcium 9.6 (8.6-10.4) mg/dl AST 8 (0-37) U/l ALT 6 (0-40) U/l Alkaline Phosphatase 88 (39-117) U/L Total Protein 7.4 (5.9-8.4) gm/dL Albumin 3.4 (3.2-5.2) gm/dL Calcium panel 08/22/18 Range/Units 11:00 Calcium 9.6 (8.6-10.4) mg/dl Albumin 3.4 (3.2-5.2) gm/dL Pituitary panel 08/22/18 Range/Units 11:00 Sodium 139 (133-145) mmol/L Potassium 3.9 (3.3-5.1) mmol/L Chloride 98 (96-108) mmol/L Carbon Dioxide 29 (22-30) mmol/L BUN 13 (8-23) mg/dl Creatinine 0.9 (0.6-1.1) mg/dl Glucose 200 H (70-105) mg/dL Calcium 9.6 (8.6-10.4) mg/dl Adrenal panel 08/22/18 Range/Units 11:00 Sodium 139 (133-145) mmol/L Potassium 3.9 (3.3-5.1) mmol/L Chloride 98 (96-108) mmol/L Carbon Dioxide 29 (22-30) mmol/L BUN 13 (8-23) mg/dl Creatinine 0.9 (0.6-1.1) mg/dl Glucose 200 H (70-105) mg/dL Calcium 9.6 (8.6-10.4) mg/dl Total Bilirubin 0.2 (0.0-1.0) mg/dL AST 8 (0-37) U/l ALT 6 (0-40) U/l Alkaline Phosphatase 88 (39-117) U/L Total Protein 7.4 (5.9-8.4) gm/dL Albumin 3.4 (3.2-5.2) gm/dL All other labs normal. Assessment and Plan (1) Dermatitis fungal Status: Acute Priority: Medium Comment: Will treat with chlorhexidene wash and topical antifungal cream / ointment (2) Cellulitis Status: Acute Priority: Medium Comment: Patient already started on IV antibiotics Qualifiers: Site of cellulitis of extremity: lower extremity Laterality: right (3) Edema extremities Status: Chronic Priority: Low Comment: Will treat with spiral compression bandages and elevation of legs on pillows.
[2018-08-22] MEDS: SENNOSIDES/DOCUSATE SODIUM 1 TAB TABLET PO SCH (20:41)
[2018-08-22] MEDS: DOCUSATE SODIUM 100 MG CAPSULE PO SCH (20:41)
[2018-08-22] MEDS: HEPARIN 5,000 UNIT/ML VIAL SQ SCH (20:42)
[2018-08-22] MEDS: FUROSEMIDE 40 MG TABLET PO SCH (20:42)
[2018-08-22] MEDS: SALMETEROL XINAFOATE 1 PUFF INHALER INH SCH (21:19)
[2018-08-22] MEDS: cloNIDine HCL 0.1 MG TABLET PO SCH (22:05)
[2018-08-23] MEDS: PIPERACILLIN SODIUM/TAZOBACTAM 3.375 GM in DEXTROSE 5% IN WATER 50 ML IV SCH ×4 (00:16→18:02)
[2018-08-23] MEDS: HYDROcodone/APAP 5/325MG TABLET PO PRN ×3 (03:35→19:03)
[2018-08-23] MEDS: 0.9 % SODIUM CHLORIDE 10 ML SYRINGE IV SCH ×3 (05:33→21:54)
[2018-08-23 07:17] LABS: ALT/SGPT 6 U/l (0-40); Albumin 3.3 gm/dL (3.2-5.2); Albumin/Globulin Ratio 0.9 (1.0-2.3); Alkaline Phosphatase 79 U/L (39-117); Bilirubin,Direct < 0.2 mg/dL (0.0-0.3); Blood Urea Nitrogen 16 mg/dl (8-23); Gamma Glutamyl Transpeptidase 46 U/L (5-36); Uric Acid 6.4 mg/dL (2.5-8.0)
[2018-08-23 08:08] LABS: Mean Cell Volume 88.2 fL (80.0-100.0); Platelet Count 286 K/mcL (140-440); RBC 4.39 M/mcL (4.00-5.20); Red Cell Distribution Width 13.9 % (11.5-14.5)
[2018-08-23 08:12] LABS: Band Neutrophils % 3 % (0-10); Basophils % (Manual) 1 % (0-2); Eosinophils % (Manual) 2 % (0-7); Lymphocytes % 34 % (15-49); Monocytes % (Manual) 9 % (1-12); Platelet Estimate NORMAL (NORMAL); RBC Morphology NORMAL (NORMAL); Segmented Neutrophils % 51 % (38-78)
[2018-08-23] MEDS: CARVEDILOL 12.5 MG TABLET PO SCH ×2 (08:58→18:02)
[2018-08-23] MEDS: FUROSEMIDE 40 MG TABLET PO SCH ×2 (08:59→21:43)
[2018-08-23] MEDS: sitaGLIPtin 100 MG TABLET PO SCH (08:59)
[2018-08-23] MEDS: cloNIDine HCL 0.1 MG TABLET PO SCH ×2 (08:59→21:43)
[2018-08-23] MEDS: DOCUSATE SODIUM 100 MG CAPSULE PO SCH ×2 (08:59→21:43)
[2018-08-23] MEDS: POTASSIUM CHLORIDE 10 MEQ TABLET PO SCH ×4 (08:59→18:02)
[2018-08-23] MEDS: SIMVASTATIN 20 MG TABLET PO SCH (08:59)
[2018-08-23] MEDS: HEPARIN 5,000 UNIT/ML VIAL SQ SCH ×2 (09:00→21:41)
[2018-08-23] MEDS ORDERED: cloNIDine HCL 0.1 MG TABLET PO SCH (09:00)
[2018-08-23] MEDS: MULTIVIT,THER IRON,CA,FA & MIN 1 TABLET PO SCH (09:00)
[2018-08-23] MEDS: GABAPENTIN 100 MG CAPSULE PO SCH ×4 (09:00→21:43)
[2018-08-23] MEDS: VANCOMYCIN 1,500 MG in 0.9 % SODIUM CHLORIDE 500 ML IV SCH ×2 (09:45→21:41)
[2018-08-23] MEDS: GENTAMICIN SULFATE 40 MG, CLINDAMYCIN 300 MG, BACITRACIN 25,000 UNIT in SODIUM CHLORIDE... IRR SCH ×2 (10:00→21:53)
--- NOTE | 2018-08-23 11:21 | Internal Med Progress Note ---
Medical - PN: Subj Patient information: Note initiated : 08/23/18 at 11:19 am Service Date, if different from initiated Date: [] Patient: Cony Baig a 67 y/o F admitted on 08/22/18 for Open Sore To Right Leg. Chief Complaint: [] Interval history: Ms. Baig is a 67 year old F with a history of diabetes and peripheral Artery disease with chronic bilateral lower extremity venous ulceration which has been managed in the past by wound care clinic. Patient comes in with worsening right lower extremity redness swelling along with pain that has evolved over the last 3 weeks. Patient failed to follow-up with wound care clinic due to fear of initiation of blood work and fear of needle . However she continued to work with the symptoms until her wound deteriorated with resultant putrid foul- smelling odor, serosanguineous bloody discharge, worsening pain and swelling that prompted her to come to the ER today. She however denies associated fever, myalgia or arthralgia But experiencing frequent chills. Initial workup in the ER was consistent with extensive right lower extremity venous ulceration/tissue necrosis cellulitis/nonhealing wound in the setting of diabetes. CT lower extremity was consistent with cellulitis without osteomyelitis. Wound care/hospitalist service was consulted. Patient was star mike on antibiotics. Cultures were drawn. At the time of evaluation patient is alert oriented. She is able to answer most of the questions and endorses a history as above. She denies recent trauma, changes in medications, recent antibiotic use. 08/23-no overnight events. Ongoing wound care per non destructive evaluation specialist. Wound culture positive for Pseudomonas. White count 10.6, ESR 97. Afebrile. No concerns per staff. Continue antibiotic coverage. - Constitutional Vitals: Vital Signs Temp Pulse Resp BP Pulse Ox 97.8 F 76 20 115/65 91 08/23/18 08:20 08/23/18 08:20 08/23/18 08:20 08/23/18 08:20 08/23/18 08:20 Period Temp Pulse Resp BP Sys/Najera Pulse Ox Last 24 Hr 97.7 F-98.6 F 76-93 16-22 104-170/65-110 91-96 Intake and Output 08/22/18 08/23/18 08/23/18 21:59 05:59 13:59 Intake Total 1590 700 Output Total 600 Balance 1590 100 Weight 238 lb Intake & Output: Intake & Output 08/22/18 08/23/18 08/23/18 21:59 05:59 13:59 Intake Total 1590 700 Output Total 600 Balance 1590 100 Weight 238 lb Intake: IV 1350 100 Lactated Ringers 1,000 ml @ 1000 Wide Open IV .Q0M ONE Rx#: [id number] Zosyn 3.375 gm In Dextrose 5% 100 100 in Water 50 ml @ 100 mls/hr IV Q6H [facility] Rx#:[id number] Vancomycin 1,000 mg In Sodium 250 Chloride 0.9% 250 ml @ 250 mls/ hr IV Q12H [facility] Rx#:[id number] Oral 240 600 Output: Void Amount 600 Other: Meal Dinner Dinner Percent of Meal Consumed 75% 75% Feeding Ability Independent # Voids 1 General appearance: no acute distress Exam: Alert and resting on bed Nonlabored, nondistressed No anxiety Right lower extremity swelling/erythema improved Nontender nondistended abdomen Medical - PN: Obj Da - Labs CBC & Chem 7: 08/23/18 05:07 08/23/18 05:07 Labs: Abnormal Lab Results 08/23/18 08/22/18 08/22/18 05:07 16:30 16:30 MPV ESR Glucose 150 H Hemoglobin A1c 7.6 H Phosphorus 4.9 H GGT 46 H C-Reactive Protein 6.7 H NT-Pro-B Natriuret Pep Globulin 3.8 H Albumin/Globulin Ratio 0.9 L Triglycerides 264 H 08/22/18 08/22/18 08/22/18 16:30 11:00 11:00 MPV 7.1 L ESR 97 H 99 H Glucose 200 H Hemoglobin A1c Phosphorus GGT C-Reactive Protein NT-Pro-B Natriuret Pep 1002.0 H Globulin 4.0 H Albumin/Globulin Ratio 0.9 L Triglycerides Meds: Medications Acetaminophen (Tylenol) 650 mg PO Q4-6HP PRN PRN Reason: PAIN/FEVER > 101 Hydrocodone Bitart/Acetaminophen ([place] 5/325mg) 0 tab PO Q4HP PRN PRN Reason: PAIN LEVEL 3-6 Last Admin: 08/23/18 03:35 Dose: 2 tab Documented by: Albuterol Sulfate (Ventolin) 2.5 mg NEB Q4HP PRN PRN Reason: wheezing or cough Albuterol Sulfate (Ventolin) 1 puff IH QIDP PRN PRN Reason: Shortness Of Breath Carvedilol (Coreg) 25 mg PO BIDCC [facility] Last Admin: 08/23/18 08:58 Dose: 25 mg Documented by: Clonidine HCl (Catapres) 0.6 mg PO BID [facility] Last Admin: 08/23/18 08:59 Dose: 0.6 mg Documented by: Docusate Sodium (Colace) 100 mg PO BID [facility] Last Admin: 08/23/18 08:59 Dose: 100 mg Documented by: Ergocalciferol (Drisdol) 50,000 unit PO Mo@0900 [facility] Furosemide (Lasix) 40 mg PO BID [facility] Last Admin: 08/23/18 08:59 Dose: 40 mg Documented by: Gabapentin (Neurontin) 100 mg PO TID [facility] Last Admin: 08/23/18 09:00 Dose: 100 mg Documented by: Heparin Sodium (Porcine) (Heparin) 5,000 unit SQ Q12 [facility] Last Admin: 08/23/18 09:00 Dose: 5,000 unit Documented by: Magnesium Sulfate (Magnesium Sulfate) 2 gm in 50 mls @ 50 mls/hr IV UD PRN PRN Reason: MG = or < 1.7 Acetaminophen (Ofirmev) 1,000 mg in 100 mls @ 200 mls/hr IV Q6HP PRN PRN Reason: PAIN/FEVER > 101 Piperacillin Sod/Tazobactam (Sod 3.375 gm/ Dextrose) 50 mls @ 100 mls/hr IV Q6H [facility] Last Infusion: 08/23/18 05:20 Dose: Infused Documented by: Vancomycin HCl 1,500 mg/ (Sodium Chloride) 500 mls @ 333.3 mls/hr IV Q12H [facility] Last Admin: 08/23/18 09:45 Dose: 333.3 mls/hr Documented by: Gentamicin Sulfate 40 mg/Clindamycin Phosphate 300 mg/Bacitracin 25,000 unit/ Sodium Chloride 503 mls @ 0 mls/hr IRR Q12H [facility] Iron Carb/Multivit/Hearing Aid Consultant/Folic Acid (Multivitamin W/Minerals) 1 tab PO DAILY [facility] Last Admin: 08/23/18 09:00 Dose: 1 tab Documented by: Ondansetron HCl (Zofran) 4 mg IV Q4-6HP PRN PRN Reason: Nausea And Vomiting Last Admin: 08/23/18 04:54 Dose: 4 mg Documented by: Potassium Chloride (Klor-Con) 40 meq PO DAILYP PRN PRN Reason: K+ < 3.5 Potassium Chloride (Kdur) 20 meq PO TIDCC [facility] Last Admin: 08/23/18 08:59 Dose: 20 meq Documented by: Salmeterol Xinafoate (Serevent) 1 puff INH BID [facility] Last Admin: 08/22/18 21:19 Dose: Not Given Documented by: Senna/Docusate Sodium (Senna Plus Tablet) 1 tab PO HS [facility] Last Admin: 08/22/18 20:41 Dose: 1 tab Documented by: Simvastatin (Zocor) 20 mg PO DAILY [facility] Last Admin: 08/23/18 08:59 Dose: 20 mg Documented by: Sitagliptin Phosphate (Januvia) 100 mg PO DAILY [facility] Last Admin: 08/23/18 08:59 Dose: 100 mg Documented by: Sodium Chloride (Saline Flush) 10 ml IV Q8 [facility] Last Admin: 08/23/18 05:33 Dose: Not Given Documented by: Vancomycin HCl (Vancomycin Per Pharmacy) 1 order IV UD [facility] Medical - PN: A/P - Time Spent With Patient Total time spent is greater than 50% in coordination of care (as documented) at patient's floor/unit and/or counseling patient: 25 - 35 minutes (1) Cellulitis Problem details: Patient already started on IV antibiotics Status: Acute Assessment and plan: * Diabetic ulcer cellulitis right lower extremity-cultures positive for Pseudomonas. Continue Zosyn. Ongoing wound care as per wound physician * History of CAD continue statin/Coreg/Lasix * History of hypertension on Coreg/clonidine * Neuropathy on gabapentin * History of COPD on bronchodilators * Full code * Prophylaxis heparin Plan * Continue Zosyn * Continue wound care per Dr. montiel * Pre-existing medical condition management as above * PT OT/nutrition support Current Visit: Yes Medical - PN: Qual - VTE Deep Vein Thrombosis/Pulmonary Embolism Present on Admission: No
--- NOTE | 2018-08-23 13:05 | General Surgery Progress Note ---
Subjective Patient reports: other Narrative: Note initiated : 08/23/18 at 1:01 pm Service Date, if different from initiated Date: [] Patient: Cony Baig 67 y/o F admitted on 08/22/18 for Open Sore To Right Leg. Chief Complaint: [] 08/23/2018. I saw this patient along with Elizabeth WALLIS, inpatient wound care nurse. Wound RLE examined. Dry greenish red staining on the dressing was noted, consistent with Pseudomonas growth on cultures. Patient is on IV Zosyn and vancomycin. Objective Temp Pulse Resp BP Pulse Ox 97.3 F 75 18 112/67 91 08/23/18 11:46 08/23/18 11:46 08/23/18 11:46 08/23/18 11:46 08/23/18 11:46 Afebrile. Vital signs are stable. Lab results reviewed. Right leg wound examined. Sepsis syndrome due to CSSSI. Colonized, MRSA with polymicrobial complex skin and skin structure infection and cellulitis. No neurovascular deficits. - Additional Data Intake & Output - Last 24 hours: Intake & Output 08/21/18 08/22/18 08/23/18 08/24/18 05:59 05:59 05:59 05:59 Intake Total 2390 980 Output Total 600 Balance 1790 980 Weight 238 lb - Labs 08/23/18 05:07 08/23/18 05:07 Diabetes panel 08/22/18 08/23/18 Range/Units 16:30 05:07 Sodium 139 (133-145) mmol/L Potassium 4.7 (3.3-5.1) mmol/L Chloride 99 (96-108) mmol/L Carbon Dioxide 28 (22-30) mmol/L BUN 16 (8-23) mg/dl Creatinine 1.0 (0.6-1.1) mg/dl Glucose 150 H (70-105) mg/dL Hemoglobin A1c 7.6 H (4.0-6.0) % HGB Calcium 9.3 (8.6-10.4) mg/dl AST 11 (0-37) U/l ALT 6 (0-40) U/l Alkaline Phosphatase 79 (39-117) U/L Total Protein 7.1 (5.9-8.4) gm/dL Albumin 3.3 (3.2-5.2) gm/dL Triglycerides 264 H (<150) mg/dl Calcium panel 08/23/18 Range/Units 05:07 Calcium 9.3 (8.6-10.4) mg/dl Phosphorus 4.9 H (2.7-4.5) mg/dL Albumin 3.3 (3.2-5.2) gm/dL Pituitary panel 08/23/18 Range/Units 05:07 Sodium 139 (133-145) mmol/L Potassium 4.7 (3.3-5.1) mmol/L Chloride 99 (96-108) mmol/L Carbon Dioxide 28 (22-30) mmol/L BUN 16 (8-23) mg/dl Creatinine 1.0 (0.6-1.1) mg/dl Glucose 150 H (70-105) mg/dL Calcium 9.3 (8.6-10.4) mg/dl Adrenal panel 08/23/18 Range/Units 05:07 Sodium 139 (133-145) mmol/L Potassium 4.7 (3.3-5.1) mmol/L Chloride 99 (96-108) mmol/L Carbon Dioxide 28 (22-30) mmol/L BUN 16 (8-23) mg/dl Creatinine 1.0 (0.6-1.1) mg/dl Glucose 150 H (70-105) mg/dL Calcium 9.3 (8.6-10.4) mg/dl Total Bilirubin 0.3 (0.0-1.0) mg/dL AST 11 (0-37) U/l ALT 6 (0-40) U/l Alkaline Phosphatase 79 (39-117) U/L Total Protein 7.1 (5.9-8.4) gm/dL Albumin 3.3 (3.2-5.2) gm/dL Assessment and Plan (1) Dermatitis fungal Problem details: Will treat with chlorhexidene wash and topical antifungal cream / ointment Status: Acute Current Visit: Yes (2) Cellulitis Problem details: Patient already started on IV antibiotics Status: Acute Current Visit: Yes (3) Edema extremities Problem details: Will treat with spiral compression bandages and elevation of legs on pillows. Status: Chronic Current Visit: No - Time Spent With Patient Total time spent is greater than 50% in coordination of care (as documented) at patient's floor/unit and/or counseling patient:
[2018-08-23] MEDS: SALMETEROL XINAFOATE 1 PUFF INHALER INH SCH ×2 (14:08→21:54)
[2018-08-23] MEDS: SENNOSIDES/DOCUSATE SODIUM 1 TAB TABLET PO SCH (21:43)
[2018-08-24] MEDS: PIPERACILLIN SODIUM/TAZOBACTAM 3.375 GM in DEXTROSE 5% IN WATER 50 ML IV SCH ×2 (00:11→06:07)
[2018-08-24] MEDS: HYDROcodone/APAP 5/325MG TABLET PO PRN ×4 (00:24→21:22)
[2018-08-24] MEDS: GENTAMICIN SULFATE 40 MG, CLINDAMYCIN 300 MG, BACITRACIN 25,000 UNIT in SODIUM CHLORIDE... IRR SCH ×3 (00:26→23:30)
[2018-08-24] MEDS ORDERED: DEXTROSE 50% 50 ML VIAL IV PRN (05:52)
[2018-08-24] MEDS ORDERED: DEXTROSE 31 GM ORAL.SUSP PO PRN (05:52)
[2018-08-24] MEDS: 0.9 % SODIUM CHLORIDE 10 ML SYRINGE IV SCH ×3 (06:07→21:30)
[2018-08-24 07:00] LABS: ALT/SGPT < 5 U/l (0-40); Albumin 2.6 gm/dL (3.2-5.2); Albumin/Globulin Ratio 0.7 (1.0-2.3); Alkaline Phosphatase 71 U/L (39-117); Bilirubin,Direct < 0.2 mg/dL (0.0-0.3); Blood Urea Nitrogen 14 mg/dl (8-23); Gamma Glutamyl Transpeptidase 43 U/L (5-36); Uric Acid 5.7 mg/dL (2.5-8.0)
[2018-08-24] MEDS: INSULIN LISPRO 1 UNIT/0.01 ML UNIT SQ SCH ×4 (07:11→21:27)
[2018-08-24] MEDS: FUROSEMIDE 40 MG TABLET PO SCH ×2 (07:47→21:20)
[2018-08-24] MEDS: HEPARIN 5,000 UNIT/ML VIAL SQ SCH ×2 (07:47→21:23)
[2018-08-24] MEDS: sitaGLIPtin 100 MG TABLET PO SCH (07:48)
[2018-08-24] MEDS: POTASSIUM CHLORIDE 10 MEQ TABLET PO SCH ×3 (07:48→17:22)
[2018-08-24] MEDS: MULTIVIT,THER IRON,CA,FA & MIN 1 TABLET PO SCH (07:48)
[2018-08-24] MEDS: CARVEDILOL 12.5 MG TABLET PO SCH ×2 (07:48→17:22)
[2018-08-24] MEDS: DOCUSATE SODIUM 100 MG CAPSULE PO SCH ×2 (07:48→21:20)
[2018-08-24] MEDS: GABAPENTIN 100 MG CAPSULE PO SCH ×3 (07:48→21:22)
[2018-08-24] MEDS: SALMETEROL XINAFOATE 1 PUFF INHALER INH SCH ×2 (07:49→21:29)
[2018-08-24] MEDS: cloNIDine HCL 0.1 MG TABLET PO SCH ×2 (08:13→21:22)
[2018-08-24] MEDS: SIMVASTATIN 20 MG TABLET PO SCH (08:17)
[2018-08-24] MEDS: VANCOMYCIN 1,500 MG in 0.9 % SODIUM CHLORIDE 500 ML IV SCH (09:12)
[2018-08-24 09:33] LABS: Mean Corpuscular HGB Conc 32.2 g/dL (31.0-36.0); Platelet Count 325 K/mcL (140-440); Red Cell Distribution Width 13.7 % (11.5-14.5)
[2018-08-24 09:35] LABS: Eosinophils % (Manual) 5 % (0-7); Lymphocytes % 42 % (15-49); Monocytes % (Manual) 3 % (1-12); Platelet Estimate NORMAL (NORMAL); RBC Morphology ABNORM (NORMAL); Rouleaux PRESENT (NONE SEEN); Segmented Neutrophils % 50 % (38-78)
--- NOTE | 2018-08-24 11:37 | Internal Med Progress Note ---
Medical - PN: Subj Patient information: Note initiated : 08/24/18 at 11:35 am Service Date, if different from initiated Date: [] Patient: Cony Baig a 67 y/o F admitted on 08/22/18 for Open Sore To Right Leg. Chief Complaint: [] Interval history: Ms. Baig is a 67 year old F with a history of diabetes and peripheral Artery disease with chronic bilateral lower extremity venous ulceration which has been managed in the past by wound care clinic. Patient comes in with worsening right lower extremity redness swelling along with pain that has evolved over the last 3 weeks. Patient failed to follow-up with wound care clinic due to fear of initiation of blood work and fear of needle . However she continued to work with the symptoms until her wound deteriorated with resultant putrid foul- smelling odor, serosanguineous bloody discharge, worsening pain and swelling that prompted her to come to the ER today. She however denies associated fever, myalgia or arthralgia But experiencing frequent chills. Initial workup in the ER was consistent with extensive right lower extremity venous ulceration/tissue necrosis cellulitis/nonhealing wound in the setting of diabetes. CT lower extremity was consistent with cellulitis without osteomyelitis. Wound care/hospitalist service was consulted. Patient was star mike on antibiotics. Cultures were drawn. At the time of evaluation patient is alert oriented. She is able to answer most of the questions and endorses a history as above. She denies recent trauma, changes in medications, recent antibiotic use. 08/23-no overnight events. Ongoing wound care per vocational placement specialist. Wound culture positive for Pseudomonas. White count 10.6, ESR 97. Afebrile. No concerns per staff. Continue antibiotic coverage. 08/24-patient seen in room. No overnight events. No fever chills. Wound is improving. Discussed with surgery. Patient will require continued wound management/antibiotics and will possibly discharge early next week if continues to improve. Denies fever chills nausea vomiting. Tolerating diet and therapy. Blood sugars at goal. On vancomycin and Zosyn - Constitutional Vitals: Vital Signs Temp Pulse Resp BP Pulse Ox 94.7 F L 72 18 132/84 90 08/24/18 06:34 08/24/18 08:00 08/24/18 06:34 08/24/18 06:34 08/24/18 06:34 Period Temp Pulse Resp BP Sys/Najera Pulse Ox Last 24 Hr 94.7 F-97.8 F 72-80 12-18 110-132/63-90 90-94 Intake and Output 08/23/18 08/24/18 08/24/18 21:59 05:59 13:59 Intake Total 100 1300 50 Output Total 850 1250 Balance -750 50 50 Weight 241 lb Intake & Output: Intake & Output 08/23/18 08/24/18 08/24/18 21:59 05:59 13:59 Intake Total 100 1300 50 Output Total 850 1250 Balance -750 50 50 Weight 241 lb Intake: IV 100 50 50 Zosyn 3.375 gm In Dextrose 5% 100 50 50 in Water 50 ml @ 100 mls/hr IV Q6H [facility] Rx#:[id number] Oral 1250 Output: Void Amount 850 1250 Other: Meal Dinner Percent of Meal Consumed 100% Feeding Ability Independent Urine Appearance Clear Clear Urine Color Dark Yellow Bright Yellow Bright Yellow Urine Odor Normal Stool Size Small Stool Color Brown Stool Consistency Loose # Voids 1 # Bowel Movements 1 General appearance: no acute distress Exam: Alert oriented No anxiety nonlabored breathing Right leg wound improving Nondistressed Medical - PN: Obj Da - Labs CBC & Chem 7: 08/24/18 08:09 08/24/18 05:22 Labs: Abnormal Lab Results 08/24/18 08/24/18 08/24/18 08:09 08:09 05:22 MPV 7.2 L RBC Morphology Abnorm A Rouleaux Present A ESR Glucose 141 H Hemoglobin A1c Calcium 8.5 L Phosphorus GGT 43 H C-Reactive Protein NT-Pro-B Natriuret Pep Albumin 2.6 L Globulin Albumin/Globulin Ratio 0.7 L Triglycerides 258 H Vancomycin Trough 24.6 H* 08/23/18 08/22/18 08/22/18 05:07 16:30 16:30 MPV RBC Morphology Rouleaux ESR Glucose 150 H Hemoglobin A1c 7.6 H Calcium Phosphorus 4.9 H GGT 46 H C-Reactive Protein 6.7 H NT-Pro-B Natriuret Pep Albumin Globulin 3.8 H Albumin/Globulin Ratio 0.9 L Triglycerides 264 H Vancomycin Trough 08/22/18 08/22/18 08/22/18 16:30 11:00 11:00 MPV 7.1 L RBC Morphology Rouleaux ESR 97 H 99 H Glucose 200 H Hemoglobin A1c Calcium Phosphorus GGT C-Reactive Protein NT-Pro-B Natriuret Pep 1002.0 H Albumin Globulin 4.0 H Albumin/Globulin Ratio 0.9 L Triglycerides Vancomycin Trough Meds: Medications Acetaminophen (Tylenol) 650 mg PO Q4-6HP PRN PRN Reason: PAIN/FEVER > 101 Hydrocodone Bitart/Acetaminophen ([place] 5/325mg) 0 tab PO Q4HP PRN PRN Reason: PAIN LEVEL 3-6 Last Admin: 08/24/18 00:24 Dose: 1 tab Documented by: Albuterol Sulfate (Ventolin) 2.5 mg NEB Q4HP PRN PRN Reason: wheezing or cough Albuterol Sulfate (Ventolin) 1 puff IH QIDP PRN PRN Reason: Shortness Of Breath [facility] Last Admin: 08/24/18 07:48 Dose: 25 mg Documented by: Clonidine HCl (Catapres) 0.6 mg PO BID [facility] Last Admin: 08/24/18 08:13 Dose: 0.6 mg Documented by: Dextrose (Dextrose 50%) 0 ml IV UD PRN PRN Reason: Hypoglycemia Diagnostic Test (Pha) (Accu-Chek) 1 each FS ACHS [facility] Last Admin: 08/24/18 07:11 Dose: 1 each Documented by: Docusate Sodium (Colace) 100 mg PO BID [facility] Last Admin: 08/24/18 07:48 Dose: 100 mg Documented by: Ergocalciferol (Drisdol) 50,000 unit PO Mo@0900 [facility] Furosemide (Lasix) 40 mg PO BID [facility] Last Admin: 08/24/18 07:47 Dose: 40 mg Documented by: Gabapentin (Neurontin) 100 mg PO TID [facility] Last Admin: 08/24/18 07:48 Dose: 100 mg Documented by: Glucose (Insta-Glucose) 15 gm PO PRN PRN PRN Reason: Hypoglycemia Heparin Sodium (Porcine) (Heparin) 5,000 unit SQ Q12 [facility] Last Admin: 08/24/18 07:47 Dose: 5,000 unit Documented by: Magnesium Sulfate (Magnesium Sulfate) 2 gm in 50 mls @ 50 mls/hr IV UD PRN PRN Reason: MG = or < 1.7 Acetaminophen (Ofirmev) 1,000 mg in 100 mls @ 200 mls/hr IV Q6HP PRN PRN Reason: PAIN/FEVER > 101 Piperacillin Sod/Tazobactam (Sod 3.375 gm/ Dextrose) 50 mls @ 100 mls/hr IV Q6H [facility] Last Infusion: 08/24/18 06:30 Dose: Infused Documented by: Gentamicin Sulfate 40 mg/Clindamycin Phosphate 300 mg/Bacitracin 25,000 unit/ Sodium Chloride 503 mls @ 0 mls/hr IRR Q12H [facility] Last Admin: 08/24/18 00:26 Dose: 1 mls/hr Documented by: Insulin Human Lispro (Humalog) 0 unit SQ ACHS [facility]; Protocol Last Admin: 08/24/18 07:11 Dose: Not Given Documented by: Iron Carb/Multivit/[place]/Folic Acid (Multivitamin W/Minerals) 1 tab PO DAILY [facility] Last Admin: 08/24/18 07:48 Dose: 1 tab Documented by: Ondansetron HCl (Zofran) 4 mg IV Q4-6HP PRN PRN Reason: Nausea And Vomiting Last Admin: 08/23/18 04:54 Dose: 4 mg Documented by: Potassium Chloride (Klor-Con) 40 meq PO DAILYP PRN PRN Reason: K+ < 3.5 Potassium Chloride (Kdur) 20 meq PO TIDCC [facility] Last Admin: 08/24/18 07:48 Dose: 20 meq Documented by: Salmeterol Xinafoate (Serevent) 1 puff INH BID [facility] Last Admin: 08/24/18 07:49 Dose: Not Given Documented by: Senna/Docusate Sodium (Senna Plus Tablet) 1 tab PO HS [facility] Last Admin: 08/23/18 21:43 Dose: 1 tab Documented by: Simvastatin (Zocor) 20 mg PO DAILY [facility] Last Admin: 08/24/18 08:17 Dose: 20 mg Documented by: Sitagliptin Phosphate (Januvia) 100 mg PO DAILY [facility] Last Admin: 08/24/18 07:48 Dose: 100 mg Documented by: Sodium Chloride (Saline Flush) 10 ml IV Q8 [facility] Last Admin: 08/24/18 06:07 Dose: 10 ml Documented by: Vancomycin HCl (Vancomycin Per Pharmacy) 1 order IV UD [facility] Medical - PN: A/P - Time Spent With Patient Total time spent is greater than 50% in coordination of care (as documented) at patient's floor/unit and/or counseling patient: 15 - 24 minutes (1) Cellulitis Problem details: Patient already started on IV antibiotics Status: Acute Assessment and plan: * Diabetic ulcer cellulitis right lower extremity-cultures positive for Pseudomonas. Continue antibiotic coverage. Wound care ongoing per Dr. Oseguera * History of CAD continue statin/Coreg/Lasix * History of hypertension on Coreg/clonidine * Neuropathy on gabapentin * History of COPD on bronchodilators * Full code * Prophylaxis heparin Plan * Continue Zosyn, DC vancomycin * Continue wound care per Dr. montiel * Pre-existing medical condition management as above * PT OT/nutrition support Current Visit: Yes Medical - PN: Qual - VTE Deep Vein Thrombosis/Pulmonary Embolism Present on Admission: No
--- NOTE | 2018-08-24 14:20 | Internal Med Progress Note ---
Medical - PN: Subj Patient information: Note initiated : 08/24/18 at 2:16 pm Service Date, if different from initiated Date: [] Patient: Cony Baig a 67 y/o F admitted on 08/22/18 for Open Sore To Right Leg. Chief Complaint: [] Interval history: Ms. Baig is a 67 year old F with a history of diabetes and peripheral Artery disease with chronic bilateral lower extremity venous ulceration which has been managed in the past by wound care clinic. Patient comes in with worsening right lower extremity redness swelling along with pain that has evolved over the last 3 weeks. Patient failed to follow-up with wound care clinic due to fear of initiation of blood work and fear of needle . However she continued to work with the symptoms until her wound deteriorated with resultant putrid foul- smelling odor, serosanguineous bloody discharge, worsening pain and swelling that prompted her to come to the ER today. She however denies associated fever, myalgia or arthralgia But experiencing frequent chills. Initial workup in the ER was consistent with extensive right lower extremity venous ulceration/tissue necrosis cellulitis/nonhealing wound in the setting of diabetes. CT lower extremity was consistent with cellulitis without osteomyelitis. Wound care/hospitalist service was consulted. Patient was starte d on antibiotics. Cultures were drawn. At the time of evaluation patient is alert oriented. She is able to answer most of the questions and endorses a history as above. She denies recent trauma, c hanges in medications, recent antibiotic use. 08/23-no overnight events. Ongoing wound care per personal injury specialist. Wound culture positive for Pseudomonas. White count 10.6, ESR 97. Afebrile. No co ncerns per staff. Continue antibiotic coverage. 08/24-patient seen in room. No overnight events. No fever chills. Wound is improving. Discussed with surgery. Patient will require continued wound management/antibiotics and will possibly discharge early next week if continues to improve. Denies fever chills nausea vomiting. Tolerating diet and therapy. Blood sugars at goal. On vancomycin and Zosyn 08/25 - Constitutional Vitals: Vital Signs Temp Pulse Resp BP Pulse Ox 97.2 F 72 16 132/70 90 08/24/18 12:00 08/24/18 08:00 08/24/18 12:00 08/24/18 12:00 08/24/18 12:00 Period Temp Pulse Resp BP Sys/Najera Pulse Ox Last 24 Hr 94.7 F-97.8 F 72-80 12-18 110-132/63-90 90-94 Intake and Output 08/24/18 08/24/18 08/24/18 05:59 13:59 21:59 Intake Total 1300 1050 Output Total 1250 150 Balance 50 900 Intake & Output: Intake & Output 08/24/18 08/24/18 08/24/18 05:59 13:59 21:59 Intake Total 1300 1050 Output Total 1250 150 Balance 50 900 Intake: IV 50 50 Zosyn 3.375 gm In Dextrose 5% 50 50 in Water 50 ml @ 100 mls/hr IV Q6H [facility] Rx#:[id number] Oral 1250 1000 Output: Void Amount 1250 Urine/Stool Mix 150 Other: Meal Dinner Lunch Percent of Meal Consumed 100% 100% Feeding Ability Independent Independent Urine Appearance Clear Clear Urine Color Bright Yellow Bright Yellow Urine Odor Normal Stool Size Small Stool Color Brown Stool Consistency Soft # Voids 1 # Bowel Movements 1 Exam: General: Alert, Awake, No acute Distress Eyes/N/T: EOMI, Head/Neck: neck supple, CV: RRR, No murmurs, normal s1/s2 Pulm: Clear b/l, no wheezing/rhonchi/rales Abd: soft, nontender, +BS x4 Ext: no clubbing/cyanosis. RLL wound erythema/swelling Neuro: Alert, no focal deficits, moves all extremities, Skin: warm/dry Medical - PN: Obj Da - Labs CBC & Chem 7: 08/24/18 08:09 08/24/18 05:22 Labs: Abnormal Lab Results 08/24/18 08/24/18 08/24/18 08:09 08:09 05:22 MPV 7.2 L RBC Morphology Abnorm A Rouleaux Present A ESR Glucose 141 H Hemoglobin A1c Calcium 8.5 L Phosphorus GGT 43 H C-Reactive Protein NT-Pro-B Natriuret Pep Albumin 2.6 L Globulin Albumin/Globulin Ratio 0.7 L Triglycerides 258 H Vancomycin Trough 24.6 H* 08/23/18 08/22/18 08/22/18 05:07 16:30 16:30 MPV RBC Morphology Rouleaux ESR Glucose 150 H Hemoglobin A1c 7.6 H Calcium Phosphorus 4.9 H GGT 46 H C-Reactive Protein 6.7 H NT-Pro-B Natriuret Pep Albumin Globulin 3.8 H Albumin/Globulin Ratio 0.9 L Triglycerides 264 H Vancomycin Trough 08/22/18 08/22/18 08/22/18 16:30 11:00 11:00 MPV 7.1 L RBC Morphology Rouleaux ESR 97 H 99 H Glucose 200 H Hemoglobin A1c Calcium Phosphorus GGT C-Reactive Protein NT-Pro-B Natriuret Pep 1002.0 H Albumin Globulin 4.0 H Albumin/Globulin Ratio 0.9 L Triglycerides Vancomycin Trough Meds: Medications Acetaminophen (Tylenol) 650 mg PO Q4-6HP PRN PRN Reason: PAIN/FEVER > 101 Hydrocodone Bitart/Acetaminophen ([place] 5/325mg) 0 tab PO Q4HP PRN PRN Reason: PAIN LEVEL 3-6 Last Admin: 08/24/18 00:24 Dose: 1 tab Documented by: Albuterol Sulfate (Ventolin) 2.5 mg NEB Q4HP PRN PRN Reason: wheezing or cough Albuterol Sulfate (Ventolin) 1 puff IH QIDP PRN PRN Reason: Shortness Of Breath [facility]) [facility] Last Admin: 08/24/18 07:48 Dose: 25 mg Documented by: Ciprofloxacin (Cipro) 750 mg PO BID [facility] Clonidine HCl (Catapres) 0.6 mg PO BID [facility] Last Admin: 08/24/18 08:13 Dose: 0.6 mg Documented by: Dextrose (Dextrose 50%) 0 ml IV UD PRN PRN Reason: Hypoglycemia Diagnostic Test (Pha) (Accu-Chek) 1 each FS ACHS [facility] Last Admin: 08/24/18 12:51 Dose: 1 each Documented by: Docusate Sodium (Colace) 100 mg PO BID [facility] Last Admin: 08/24/18 07:48 Dose: 100 mg Documented by: Ergocalciferol (Drisdol) 50,000 unit PO Mo@0900 [facility] Furosemide (Lasix) 40 mg PO BID [facility] Last Admin: 08/24/18 07:47 Dose: 40 mg Documented by: Gabapentin (Neurontin) 100 mg PO TID [facility] Last Admin: 08/24/18 07:48 Dose: 100 mg Documented by: Glucose (Insta-Glucose) 15 gm PO PRN PRN PRN Reason: Hypoglycemia Heparin Sodium (Porcine) (Heparin) 5,000 unit SQ Q12 [facility] Last Admin: 08/24/18 07:47 Dose: 5,000 unit Documented by: Magnesium Sulfate (Magnesium Sulfate) 2 gm in 50 mls @ 50 mls/hr IV UD PRN PRN Reason: MG = or < 1.7 Acetaminophen (Ofirmev) 1,000 mg in 100 mls @ 200 mls/hr IV Q6HP PRN PRN Reason: PAIN/FEVER > 101 Gentamicin Sulfate 40 mg/Clindamycin Phosphate 300 mg/Bacitracin 25,000 unit/ Sodium Chloride 503 mls @ 0 mls/hr IRR Q12H [facility] Last Admin: 08/24/18 11:43 Dose: 1 mls/hr Documented by: Insulin Human Lispro (Humalog) 0 unit SQ ACHS [facility]; Protocol Last Admin: 08/24/18 07:11 Dose: Not Given Documented by: Iron Carb/Multivit/[place]/Folic Acid (Multivitamin W/Minerals) 1 tab PO DAILY [facility] Last Admin: 08/24/18 07:48 Dose: 1 tab Documented by: Ondansetron HCl (Zofran) 4 mg IV Q4-6HP PRN PRN Reason: Nausea And Vomiting Last Admin: 08/23/18 04:54 Dose: 4 mg Documented by: Potassium Chloride (Klor-Con) 40 meq PO DAILYP PRN PRN Reason: K+ < 3.5 Potassium Chloride (Kdur) 20 meq PO TIDCC [facility] Last Admin: 08/24/18 07:48 Dose: 20 meq Documented by: Salmeterol Xinafoate (Serevent) 1 puff INH BID [facility] Last Admin: 08/24/18 07:49 Dose: Not Given Documented by: Senna/Docusate Sodium (Senna Plus Tablet) 1 tab PO HS [facility] Last Admin: 08/23/18 21:43 Dose: 1 tab Documented by: Simvastatin (Zocor) 20 mg PO DAILY [facility] Last Admin: 08/24/18 08:17 Dose: 20 mg Documented by: Sitagliptin Phosphate (Januvia) 100 mg PO DAILY [facility] Last Admin: 08/24/18 07:48 Dose: 100 mg Documented by: Sodium Chloride (Saline Flush) 10 ml IV Q8 [facility] Last Admin: 08/24/18 06:07 Dose: 10 ml Documented by: Medical - PN: A/P - Time Spent With Patient Total time spent is greater than 50% in coordination of care (as documented) at patient's floor/unit and/or counseling patient: - Narrative A/P Narrative: A: *Diabetic ulcer and cellulitis RLE: cultures positive for Pseudomonas. *History of CAD continue statin/Coreg/Lasix *History of hypertension on Coreg/clonidine *Neuropathy on gabapentin *History of COPD on bronchodilators Plan: -ID following -Continue Zosyn, DC vancomycin -Continue wound care per Dr. nolan -cont cardiac meds -PT OT/nutrition support -ppx: heparin Full Code Medical - PN: Qual - VTE Deep Vein Thrombosis/Pulmonary Embolism Present on Admission: No
--- NOTE | 2018-08-24 15:00 | Infectious Disease Consult ---
History of Present Illness Patient information: Note initiated : 08/24/18 at 2:17 pm Service Date, if different from initiated Date: [] Patient: Cony Baig 67 y/o F admitted on 08/22/18 for Open Sore To Right Leg. Chief Complaint: [] Consult date: 08/23/18 (late afternoon) Requesting Physician: Salvador Galdamez Reason for Consult: P aeruginosa isolated from Rt leg wound Chief complaint: my leg was hurting History of present illness: 67 year old lady with PMHx of: - DM2 - PAD - varicose veins Pt had developed Rt leg venous ulcers about 3 weeks ago. She was seen in wound care clinic afterwards and in interim her wound had become more swollen, red, with lots of foul-smelling drainage. She also noticed feeling feverish prior to admission. Initial workup in the ER was consistent with extensive right lower extremity venous ulceration/tissue necrosis cellulitis/nonhealing wound in the setting of diabetes. CT lower extremity was consistent with cellulitis without osteomyelitis. Wound care/hospitalist service was consulted. Patient was started on antibiotics. Wound Cultures were sent. Pt improved clinically with selective superficial debridement. She has been on IV Vanc and IV Zosyn since admission.At time of visit, she mentioned that her wound looks better. Denied any fever, chills, n/v/d. The wound Cx were finalized as Pseudomonas aeruginosa (hardin sens). When asked about why she is in isolation, pt reports that she never had MRSA and doesn't know why she is isolation. Review of Systems All systems PM: reviewed and no additional remarkable complaints except as stated Past History Past family history: not pertinent to current presentation Medications and Allergies Home Medications Medication Instructions Recorded Confirmed Type Albuterol Sulfate [Proair Hfa] 8.5 gm IH Q4 04/28/16 08/22/18 History Carvedilol [Coreg] 25 mg PO BID 04/28/16 08/22/18 History Furosemide [Lasix] 40 mg PO BID 04/28/16 08/22/18 History Lovastatin [Altoprev] 40 mg PO DAILY 04/28/16 08/22/18 History Potassium Chloride [Kdur] 20 meq PO TIDCC 04/28/16 08/22/18 History Salmeterol Xinafoate [Serevent] 50 mcg IH BID 04/28/16 08/22/18 History cloNIDine HCL [Catapres] 0.6 mg PO BID 04/28/16 08/22/18 History Ergocalciferol (Vitamin D2) 50,000 unit PO WEEKLY 05/07/16 08/22/18 History [Vitamin D2] Gabapentin [Neurontin] 100 mg PO TID #90 cap 07/04/17 08/22/18 Rx Albuterol Sulfate [Ventolin] 2.5 mg NEB Q4HP PRN #120 ampul.neb 02/23/18 08/22/18 Rx Allergies Allergy/AdvReac Type Severity Reaction Status Date / Time lidocaine AdvReac Intermediate Muscle Pain Verified 08/22/18 10:20 morphine AdvReac Intermediate Vomiting Verified 08/22/18 10:20 wool AdvReac Intermediate Rash Verified 08/22/18 10:20 tramadol AdvReac Mild Vomiting Verified 08/22/18 10:20 Physical Examination Vital signs: Temp Pulse Resp BP Pulse Ox 36.2 C 72 16 132/70 90 08/24/18 12:00 08/24/18 08:00 08/24/18 12:00 08/24/18 12:00 08/24/18 12:00 General appearance: no acute distress Eyes pulmonary: nonicteric Integumentary: other (diffuse dark colored pigmentation of skin in both lower extremities) Extremities: no cyanosis, pink and warm, other (has swelling compared to other side. has a superficial ulcer on the leg covering most of medial and front surfaces. No exudate visible. Bright red granulation tissue at base of ulcer for most part. No foul odor.) Results - Laboratory Findings CBC and BMP: 08/24/18 08:09 08/24/18 05:22 Abnormal lab findings: Abnormal Labs 08/22/18 08/22/18 08/22/18 11:00 11:00 16:30 MPV 7.1 L RBC Morphology Rouleaux ESR 99 H 97 H Glucose 200 H Hemoglobin A1c Calcium Phosphorus GGT C-Reactive Protein NT-Pro-B Natriuret Pep 1002.0 H Albumin Globulin 4.0 H Albumin/Globulin Ratio 0.9 L Triglycerides Vancomycin Trough 08/22/18 08/22/18 08/23/18 16:30 16:30 05:07 MPV RBC Morphology Rouleaux ESR Glucose 150 H Hemoglobin A1c 7.6 H Calcium Phosphorus 4.9 H GGT 46 H C-Reactive Protein 6.7 H NT-Pro-B Natriuret Pep Albumin Globulin 3.8 H Albumin/Globulin Ratio 0.9 L Triglycerides 264 H Vancomycin Trough 08/24/18 08/24/18 08/24/18 05:22 08:09 08:09 MPV 7.2 L RBC Morphology Abnorm A Rouleaux Present A ESR Glucose 141 H Hemoglobin A1c Calcium 8.5 L Phosphorus GGT 43 H C-Reactive Protein NT-Pro-B Natriuret Pep Albumin 2.6 L Globulin Albumin/Globulin Ratio 0.7 L Triglycerides 258 H Vancomycin Trough 24.6 H* Microbiology: Microbiology 08/22/18 11:09 Ankle - Right Gram Stain - Final 08/22/18 11:09 Ankle - Right Wound Culture - Final Pseudomonas aeruginosa Pseudomonas aeruginosa#2 08/22/18 16:44 Blood Blood Culture - Preliminary Assessment and Plan - Narrative A/P Narrative: A: 1. Rt LE skin and soft tissue infection without any evidence of osteomyelitis: - superf wound Cx with growth of Pseudomonas aeruginosa (hardin sens) - clinical signs of improvement 2. No signs of sepsis Recommendations: - Stop IV Vanc and IV Zosyn - Start PO Ciprofloxacin 750 mg bid which can be continued until 08/31/18 - Pt counselled to f/u with wound care, keep the wounds away from any pet contact - MRSA precautions can be stopped as pt doesnt report any Hx of MRSA and neither has any positive microbiology suggestive of MRSA in our EMR. Robbi Olivera MD Infectious diseases
[2018-08-24] MEDS: SENNOSIDES/DOCUSATE SODIUM 1 TAB TABLET PO SCH (21:20)
[2018-08-24] MEDS: CIPROFLOXACIN 250 MG TABLET PO SCH (21:21)
[2018-08-25] MEDS: 0.9 % SODIUM CHLORIDE 10 ML SYRINGE IV SCH ×3 (04:36→22:00)
[2018-08-25] MEDS: HYDROcodone/APAP 5/325MG TABLET PO PRN ×5 (04:37→21:24)
[2018-08-25 05:50] LABS: Mean Cell Volume 89.1 fL (80.0-100.0); Mean Corpuscular HGB Conc 32.1 g/dL (31.0-36.0); Platelet Count 323 K/mcL (140-440); RBC 4.23 M/mcL (4.00-5.20); Red Cell Distribution Width 13.5 % (11.5-14.5)
[2018-08-25 06:25] LABS: Vancomycin,Random 9.9 ug/mL
[2018-08-25 06:33] LABS: ALT/SGPT 6 U/l (0-40); Albumin 3.1 gm/dL (3.2-5.2); Albumin/Globulin Ratio 0.9 (1.0-2.3); Alkaline Phosphatase 71 U/L (39-117); Bilirubin,Direct < 0.2 mg/dL (0.0-0.3); Blood Urea Nitrogen 14 mg/dl (8-23); Gamma Glutamyl Transpeptidase 47 U/L (5-36); Uric Acid 6.8 mg/dL (2.5-8.0)
[2018-08-25 06:48] LABS: Band Neutrophils % 1 % (0-10); Eosinophils % (Manual) 3 % (0-7); Lymphocytes % 37 % (15-49); Monocytes % (Manual) 5 % (1-12); Platelet Estimate NORMAL (NORMAL); RBC Morphology NORMAL (NORMAL); Segmented Neutrophils % 54 % (38-78)
--- NOTE | 2018-08-25 07:29 | Internal Med Progress Note ---
Medical - PN: Subj Patient information: Note initiated : 08/25/18 at 7:27 am Service Date, if different from initiated Date: [] Patient: Cony Baig a 67 y/o F admitted on 08/22/18 for Open Sore To Right Leg. Chief Complaint: [] Interval history: Ms. Baig is a 67 year old F with a history of diabetes and peripheral Artery disease with chronic bilateral lower extremity venous ulceration which has been managed in the past by wound care clinic. Patient comes in with worsening right lower extremity redness swelling along with pain that has evolved over the last 3 weeks. Patient failed to follow-up with wound care clinic due to fear of initiation of blood work and fear of needle . However she continued to work with the symptoms until her wound deteriorated with resultant putrid foul- smelling odor, serosanguineous bloody discharge, worsening pain and swelling that prompted her to come to the ER today. She however denies associated fever, myalgia or arthralgia But experiencing frequent chills. Initial workup in the ER was consistent with extensive right lower extremity venous ulceration/tissue necrosis cellulitis/nonhealing wound in the setting of diabetes. CT lower extremity was consistent with cellulitis without osteomyelitis. Wound care/hospitalist service was consulted. Patient was starte d on antibiotics. Cultures were drawn. At the time of evaluation patient is alert oriented. She is able to answer most of the questions and endorses a history as above. She denies recent trauma, c hanges in medications, recent antibiotic use. 08/23-no overnight events. Ongoing wound care per posting specialist. Wound culture positive for Pseudomonas. White count 10.6, ESR 97. Afebrile. No co ncerns per staff. Continue antibiotic coverage. 08/24-patient seen in room. No overnight events. No fever chills. Wound is improving. Discussed with surgery. Patient will require continued wound management/antibiotics and will possibly discharge early next week if continues to improve. Denies fever chills nausea vomiting. Tolerating diet and therapy. Blood sugars at goal. On vancomycin and Zosyn 08/25 Slept well. No overnight events. No new complaints. Dressing intact. Does have a mild cough from a recent cold. Review of Systems: denies headache/fever/chills/nausea/vomiting/chest or abdominal pain/dyspnea/diarrhea. Otherwise see above. - Constitutional Vitals: Vital Signs Temp Pulse Resp BP Pulse Ox 98.2 F 77 18 140/80 93 08/25/18 07:21 08/25/18 07:21 08/25/18 07:21 08/25/18 07:21 08/25/18 07:21 Period Temp Pulse Resp BP Sys/Najera Pulse Ox Last 24 Hr 97.2 F-98.2 F 65-77 16-22 120-156/66-84 90-93 Intake and Output 08/24/18 08/25/18 08/25/18 21:59 05:59 13:59 Intake Total 960 590 Output Total 150 600 Balance 810 -10 Weight 109.316 kg Intake & Output: Intake & Output 08/24/18 08/25/18 08/25/18 21:59 05:59 13:59 Intake Total 960 590 Output Total 150 600 Balance 810 -10 Weight 109.316 kg Intake: Oral 960 590 Output: Void Amount 150 600 Other: Meal Nilson crackers Percent of Meal Consumed 100% Feeding Ability Independent Urine Appearance Clear Urine Color Straw Urine Odor Normal Stool Color Brown Stool Consistency Soft # Bowel Movements 1 Exam: General: Alert, Awake, No acute Distress Eyes/N/T: EOMI, Head/Neck: neck supple, CV: RRR, No murmurs, normal s1/s2 Pulm: Clear b/l, no wheezing/rhonchi/rales Abd: soft, nontender, +BS x4 Ext: no clubbing/cyanosis. RLL wound erythema/swelling/dressing intact Neuro: Alert, no focal deficits, moves all extremities, Skin: warm/dry Medical - PN: Obj Da - Labs CBC & Chem 7: 08/25/18 04:47 08/25/18 04:47 Labs: Abnormal Lab Results 08/25/18 08/25/18 08/24/18 04:47 04:47 08:09 MPV 7.1 L 7.2 L RBC Morphology Abnorm A Rouleaux Present A ESR Carbon Dioxide 31 H Glucose 160 H Hemoglobin A1c Calcium Phosphorus GGT 47 H C-Reactive Protein NT-Pro-B Natriuret Pep Albumin 3.1 L Globulin Albumin/Globulin Ratio 0.9 L Triglycerides 303 H Vancomycin Trough 08/24/18 08/24/18 08/23/18 08:09 05:22 05:07 MPV RBC Morphology Rouleaux ESR Carbon Dioxide Glucose 141 H 150 H Hemoglobin A1c Calcium 8.5 L Phosphorus 4.9 H GGT 43 H 46 H C-Reactive Protein NT-Pro-B Natriuret Pep Albumin 2.6 L Globulin 3.8 H Albumin/Globulin Ratio 0.7 L 0.9 L Triglycerides 258 H 264 H Vancomycin Trough 24.6 H* 08/22/18 08/22/18 08/22/18 16:30 16:30 16:30 MPV RBC Morphology Rouleaux ESR 97 H Carbon Dioxide Glucose Hemoglobin A1c 7.6 H Calcium Phosphorus GGT C-Reactive Protein 6.7 H NT-Pro-B Natriuret Pep Albumin Globulin Albumin/Globulin Ratio Triglycerides Vancomycin Trough 08/22/18 08/22/18 11:00 11:00 MPV 7.1 L RBC Morphology Rouleaux ESR 99 H Carbon Dioxide Glucose 200 H Hemoglobin A1c Calcium Phosphorus GGT C-Reactive Protein NT-Pro-B Natriuret Pep 1002.0 H Albumin Globulin 4.0 H Albumin/Globulin Ratio 0.9 L Triglycerides Vancomycin Trough Meds: Medications Acetaminophen (Tylenol) 650 mg PO Q4-6HP PRN PRN Reason: PAIN/FEVER > 101 Hydrocodone Bitart/Acetaminophen ([place] 5/325mg) 0 tab PO Q4HP PRN PRN Reason: PAIN LEVEL 3-6 Last Admin: 08/25/18 04:37 Dose: 1 tab Documented by: Albuterol Sulfate (Ventolin) 2.5 mg NEB Q4HP PRN PRN Reason: wheezing or cough Albuterol Sulfate (Ventolin) 1 puff IH QIDP PRN PRN Reason: Shortness Of Breath [facility] Last Admin: 08/24/18 17:22 Dose: 25 mg Documented by: Ciprofloxacin (Cipro) 750 mg PO BID [facility] Last Admin: 08/24/18 21:21 Dose: 750 mg Documented by: Clonidine HCl (Catapres) 0.6 mg PO BID [facility] Last Admin: 08/24/18 21:22 Dose: 0.6 mg Documented by: Dextrose (Dextrose 50%) 0 ml IV UD PRN PRN Reason: Hypoglycemia Diagnostic Test (Pha) (Accu-Chek) 1 each FS ACHS [facility] Last Admin: 08/25/18 07:20 Dose: 1 each Documented by: Docusate Sodium (Colace) 100 mg PO BID [facility] Last Admin: 08/24/18 21:20 Dose: 100 mg Documented by: Ergocalciferol (Drisdol) 50,000 unit PO Mo@0900 [facility] Furosemide (Lasix) 40 mg PO BID [facility] Last Admin: 08/24/18 21:20 Dose: 40 mg Documented by: Gabapentin (Neurontin) 100 mg PO TID [facility] Last Admin: 08/24/18 21:22 Dose: 100 mg Documented by: Glucose (Insta-Glucose) 15 gm PO PRN PRN PRN Reason: Hypoglycemia Heparin Sodium (Porcine) (Heparin) 5,000 unit SQ Q12 [facility] Last Admin: 08/24/18 21:23 Dose: 5,000 unit Documented by: Magnesium Sulfate (Magnesium Sulfate) 2 gm in 50 mls @ 50 mls/hr IV UD PRN PRN Reason: MG = or < 1.7 Acetaminophen (Ofirmev) 1,000 mg in 100 mls @ 200 mls/hr IV Q6HP PRN PRN Reason: PAIN/FEVER > 101 Gentamicin Sulfate 40 mg/Clindamycin Phosphate 300 mg/Bacitracin 25,000 unit/ Sodium Chloride 503 mls @ 0 mls/hr IRR Q12H [facility] Last Admin: 08/24/18 23:30 Dose: 1 mls/hr Documented by: Insulin Human Lispro (Humalog) 0 unit SQ ACHS [facility]; Protocol Last Admin: 08/24/18 21:27 Dose: Not Given Documented by: Iron Carb/Multivit/[place]/Folic Acid (Multivitamin W/Minerals) 1 tab PO DAILY [facility] Last Admin: 08/24/18 07:48 Dose: 1 tab Documented by: Ondansetron HCl (Zofran) 4 mg IV Q4-6HP PRN PRN Reason: Nausea And Vomiting Last Admin: 08/23/18 04:54 Dose: 4 mg Documented by: Potassium Chloride (Klor-Con) 40 meq PO DAILYP PRN PRN Reason: K+ < 3.5 Potassium Chloride (Kdur) 20 meq PO TIDCC [facility] Last Admin: 08/24/18 17:22 Dose: 20 meq Documented by: Salmeterol Xinafoate (Serevent) 1 puff INH BID [facility] Last Admin: 08/24/18 21:29 Dose: Not Given Documented by: Senna/Docusate Sodium (Senna Plus Tablet) 1 tab PO HS [facility] Last Admin: 08/24/18 21:20 Dose: 1 tab Documented by: Simvastatin (Zocor) 20 mg PO DAILY [facility] Last Admin: 08/24/18 08:17 Dose: 20 mg Documented by: Sitagliptin Phosphate (Januvia) 100 mg PO DAILY [facility] Last Admin: 08/24/18 07:48 Dose: 100 mg Documented by: Sodium Chloride (Saline Flush) 10 ml IV Q8 [facility] Last Admin: 08/25/18 04:36 Dose: 10 ml Documented by: Medical - PN: A/P - Time Spent With Patient Total time spent is greater than 50% in coordination of care (as documented) at patient's floor/unit and/or counseling patient: - Narrative A/P Narrative: A: *Diabetic ulcer and cellulitis RLE: cultures positive for Pseudomonas. *History of CAD continue statin/Coreg/Lasix *History of hypertension on Coreg/clonidine *Neuropathy on gabapentin *History of COPD(does not use home O2): on bronchodilators Plan: -ID following: Stop IV Vanc and IV Zosyn, Start PO Ciprofloxacin 750 mg bid which can be continued until 08/31/18, Pt counselled to f/u with wound care, keep the wounds away from any pet contact, MRSA precautions can be stopped as pt doesn't report any Hx of MRSA and neither has any positive microbiology suggestive of MRSA in our EMR. -Continue wound care per Dr. nolan -cont cardiac meds -PT OT/nutrition support -ppx: heparin Full Code Medical - PN: Qual - VTE Deep Vein Thrombosis/Pulmonary Embolism Present on Admission: No
[2018-08-25] MEDS: INSULIN LISPRO 1 UNIT/0.01 ML UNIT SQ SCH ×4 (07:38→21:20)
[2018-08-25] MEDS: MULTIVIT,THER IRON,CA,FA & MIN 1 TABLET PO SCH (09:06)
[2018-08-25] MEDS: cloNIDine HCL 0.1 MG TABLET PO SCH ×2 (09:06→21:22)
[2018-08-25] MEDS: SIMVASTATIN 20 MG TABLET PO SCH (09:07)
[2018-08-25] MEDS: FUROSEMIDE 40 MG TABLET PO SCH ×2 (09:07→21:24)
[2018-08-25] MEDS: CARVEDILOL 12.5 MG TABLET PO SCH ×2 (09:07→17:50)
[2018-08-25] MEDS: CIPROFLOXACIN 250 MG TABLET PO SCH ×2 (09:07→21:23)
[2018-08-25] MEDS: POTASSIUM CHLORIDE 10 MEQ TABLET PO SCH ×3 (09:07→17:50)
[2018-08-25] MEDS: sitaGLIPtin 100 MG TABLET PO SCH (09:07)
[2018-08-25] MEDS: DOCUSATE SODIUM 100 MG CAPSULE PO SCH ×2 (09:07→21:24)
[2018-08-25] MEDS: GABAPENTIN 100 MG CAPSULE PO SCH ×3 (09:08→21:24)
[2018-08-25] MEDS: HEPARIN 5,000 UNIT/ML VIAL SQ SCH ×2 (09:11→21:20)
[2018-08-25] MEDS: SALMETEROL XINAFOATE 1 PUFF INHALER INH SCH ×2 (09:17→21:28)
--- NOTE | 2018-08-25 11:31 | General Surgery Progress Note ---
Subjective Narrative: Note initiated : 08/25/18 at 11:28 am Service Date, if different from initiated Date: [] Patient: Cony Baig 67 y/o F admitted on 08/22/18 for Open Sore To Right Leg. Chief Complaint: [] I saw this patient on rounds. Reviewed her progress and discussed this with Dr. Frank hospitalist physician. Appreciate infectious disease note from Dr. Olivera. Objective Temp Pulse Resp BP Pulse Ox 98.2 F 77 18 140/80 93 08/25/18 07:21 08/25/18 07:21 08/25/18 07:21 08/25/18 07:21 08/25/18 07:21 AVSS. No changes in IZA Right leg superficial dermatitis and venous leg ulcer is responding to conduit to management. Local inflammatory changes and drainage have improved significantly. Reviewed infectious diseases is note of Dr. Olivera. - Additional Data Intake & Output - Last 24 hours: Intake & Output 08/23/18 08/24/18 08/25/18 08/26/18 05:59 05:59 05:59 05:59 Intake Total 2390 2840 2600 Output Total 600 2100 900 Balance 0307 514 3060 Weight 238 lb 241 lb 241 lb - Labs 08/25/18 04:47 08/25/18 04:47 Diabetes panel 08/25/18 Range/Units 04:47 Sodium 140 (133-145) mmol/L Potassium 4.2 (3.3-5.1) mmol/L Chloride 99 (96-108) mmol/L Carbon Dioxide 31 H (22-30) mmol/L BUN 14 (8-23) mg/dl Creatinine 0.8 (0.6-1.1) mg/dl Glucose 160 H (70-105) mg/dL Calcium 8.8 (8.6-10.4) mg/dl AST 8 (0-37) U/l ALT 6 (0-40) U/l Alkaline Phosphatase 71 (39-117) U/L Total Protein 6.5 (5.9-8.4) gm/dL Albumin 3.1 L (3.2-5.2) gm/dL Triglycerides 303 H (<150) mg/dl Calcium panel 08/25/18 Range/Units 04:47 Calcium 8.8 (8.6-10.4) mg/dl Phosphorus 3.5 (2.7-4.5) mg/dL Albumin 3.1 L (3.2-5.2) gm/dL Pituitary panel 08/25/18 Range/Units 04:47 Sodium 140 (133-145) mmol/L Potassium 4.2 (3.3-5.1) mmol/L Chloride 99 (96-108) mmol/L Carbon Dioxide 31 H (22-30) mmol/L BUN 14 (8-23) mg/dl Creatinine 0.8 (0.6-1.1) mg/dl Glucose 160 H (70-105) mg/dL Calcium 8.8 (8.6-10.4) mg/dl Adrenal panel 08/25/18 Range/Units 04:47 Sodium 140 (133-145) mmol/L Potassium 4.2 (3.3-5.1) mmol/L Chloride 99 (96-108) mmol/L Carbon Dioxide 31 H (22-30) mmol/L BUN 14 (8-23) mg/dl Creatinine 0.8 (0.6-1.1) mg/dl Glucose 160 H (70-105) mg/dL Calcium 8.8 (8.6-10.4) mg/dl Total Bilirubin 0.2 (0.0-1.0) mg/dL AST 8 (0-37) U/l ALT 6 (0-40) U/l Alkaline Phosphatase 71 (39-117) U/L Total Protein 6.5 (5.9-8.4) gm/dL Albumin 3.1 L (3.2-5.2) gm/dL Assessment and Plan (1) Dermatitis fungal Problem details: Will treat with chlorhexidene wash and topical antifungal cream / ointment Status: Acute Current Visit: Yes (2) Cellulitis Problem details: Patient already started on IV antibiotics Status: Acute Current Visit: Yes (3) Edema extremities Problem details: Will treat with spiral compression bandages and elevation of legs on pillows. Status: Chronic Current Visit: No - Time Spent With Patient Total time spent is greater than 50% in coordination of care (as documented) at patient's floor/unit and/or counseling patient: Assessment. Progressing well. IV antibiotics discontinued and switched to by mouth ciprofloxacin 750 mg daily. Plan: Continue local wound care and by mouth antibiotics. Anticipated discussion with case management and discharge planning after the weekend and early discharge thereafter. Will follow-up in the wound care center after discharge. less than 15 minutes
[2018-08-25] MEDS: GENTAMICIN SULFATE 40 MG, CLINDAMYCIN 300 MG, BACITRACIN 25,000 UNIT in SODIUM CHLORIDE... IRR SCH (15:53)
[2018-08-25] MEDS: SENNOSIDES/DOCUSATE SODIUM 1 TAB TABLET PO SCH (21:23)
[2018-08-26] MEDS: GENTAMICIN SULFATE 40 MG, CLINDAMYCIN 300 MG, BACITRACIN 25,000 UNIT in SODIUM CHLORIDE... IRR SCH ×2 (01:12→15:31)
[2018-08-26] MEDS: HYDROcodone/APAP 5/325MG TABLET PO PRN ×6 (01:49→23:18)
[2018-08-26] MEDS: 0.9 % SODIUM CHLORIDE 10 ML SYRINGE IV SCH ×4 (06:40→23:21)
[2018-08-26] MEDS: INSULIN LISPRO 1 UNIT/0.01 ML UNIT SQ SCH ×4 (06:42→21:57)
--- NOTE | 2018-08-26 07:43 | Internal Med Progress Note ---
Medical - PN: Subj Patient information: Note initiated : 08/26/18 at 7:42 am Service Date, if different from initiated Date: [] Patient: Cony Baig a 67 y/o F admitted on 08/22/18 for Open Sore To Right Leg. Chief Complaint: [] Interval history: Ms. Baig is a 67 year old F with a history of diabetes and peripheral Artery disease with chronic bilateral lower extremity venous ulceration which has been managed in the past by wound care clinic. Patient comes in with worsening right lower extremity redness swelling along with pain that has evolved over the last 3 weeks. Patient failed to follow-up with wound care clinic due to fear of initiation of blood work and fear of needle . However she continued to work with the symptoms until her wound deteriorated with resultant putrid foul- smelling odor, serosanguineous bloody discharge, worsening pain and swelling that prompted her to come to the ER today. She however denies associated fever, myalgia or arthralgia But experiencing frequent chills. Initial workup in the ER was consistent with extensive right lower extremity venous ulceration/tissue necrosis cellulitis/nonhealing wound in the setting of diabetes. CT lower extremity was consistent with cellulitis without osteomyelitis. Wound care/hospitalist service was consulted. Patient was starte d on antibiotics. Cultures were drawn. At the time of evaluation patient is alert oriented. She is able to answer most of the questions and endorses a history as above. She denies recent trauma, c hanges in medications, recent antibiotic use. 08/23-no overnight events. Ongoing wound care per microarray specialist. Wound culture positive for Pseudomonas. White count 10.6, ESR 97. Afebrile. No co ncerns per staff. Continue antibiotic coverage. 08/24-patient seen in room. No overnight events. No fever chills. Wound is improving. Discussed with surgery. Patient will require continued wound management/antibiotics and will possibly discharge early next week if continues to improve. Denies fever chills nausea vomiting. Tolerating diet and therapy. Blood sugars at goal. On vancomycin and Zosyn 08/25 Slept well. No overnight events. No new complaints. Dressing intact. Does have a mild cough from a recent cold. 08/26 Slept well. No new complaints. Dressing intact. Leg tender and sensitive to touch. therapy per wound care. Review of Systems: denies headache/fever/chills/nausea/vomiting/chest or abdominal pain/dyspnea/diarrhea. Otherwise see above. - Constitutional Vitals: Vital Signs Temp Pulse Resp BP Pulse Ox 97.0 F 65 20 125/66 95 08/26/18 04:15 08/26/18 04:15 08/26/18 04:15 08/26/18 04:15 08/26/18 04:15 Period Temp Pulse Resp BP Sys/Najera Pulse Ox Last 24 Hr 97.0 F-97.8 F 62-74 16-22 116-138/60-82 90-95 Intake and Output 08/25/18 08/26/18 08/26/18 21:59 05:59 13:59 Intake Total 970 Output Total 600 650 Balance -600 320 Weight 109.543 kg Intake & Output: Intake & Output 08/25/18 08/26/18 08/26/18 21:59 05:59 13:59 Intake Total 970 Output Total 600 650 Balance -600 320 Weight 109.543 kg Intake: Oral 970 Output: Void Amount 600 650 Other: Meal Cott[place] cheese, fruit, apple juice Percent of Meal Consumed 100% Feeding Ability Independent Stool Size Large Stool Color Brown Stool Consistency Soft # Bowel Movements 1 Exam: General: Alert, Awake, No acute Distress Eyes/N/T: EOMI, Head/Neck: neck supple, CV: RRR, No murmurs, normal s1/s2 Pulm: Clear b/l, no wheezing/rhonchi/rales Abd: soft, nontender, +BS x4 Ext: no clubbing/cyanosis. RLL wound erythema/swelling/dressing intact Neuro: Alert, no focal deficits, moves all extremities, Skin: warm/dry Medical - PN: Obj Da - Labs CBC & Chem 7: 08/25/18 04:47 08/26/18 06:30 Labs: Abnormal Lab Results 08/25/18 08/25/18 08/24/18 04:47 04:47 08:09 MPV 7.1 L 7.2 L RBC Morphology Abnorm A Rouleaux Present A Carbon Dioxide 31 H Glucose 160 H Calcium GGT 47 H Albumin 3.1 L Albumin/Globulin Ratio 0.9 L Triglycerides 303 H Vancomycin Trough 08/24/18 08/24/18 08:09 05:22 MPV RBC Morphology Rouleaux Carbon Dioxide Glucose 141 H Calcium 8.5 L GGT 43 H Albumin 2.6 L Albumin/Globulin Ratio 0.7 L Triglycerides 258 H Vancomycin Trough 24.6 H* Meds: Medications Acetaminophen (Tylenol) 650 mg PO Q4-6HP PRN PRN Reason: PAIN/FEVER > 101 Hydrocodone Bitart/Acetaminophen ([place] 5/325mg) 0 tab PO Q4HP PRN PRN Reason: PAIN LEVEL 3-6 Last Admin: 08/26/18 06:39 Dose: 1 tab Documented by: Albuterol Sulfate (Ventolin) 2.5 mg NEB Q4HP PRN PRN Reason: wheezing or cough Albuterol Sulfate (Ventolin) 1 puff IH QIDP PRN PRN Reason: Shortness Of Breath [facility] Last Admin: 08/25/18 17:50 Dose: 25 mg Documented by: Ciprofloxacin (Cipro) 750 mg PO BID [facility] Last Admin: 08/25/18 21:23 Dose: 750 mg Documented by: Clonidine HCl (Catapres) 0.6 mg PO BID [facility] Last Admin: 08/25/18 21:22 Dose: 0.6 mg Documented by: Dextrose (Dextrose 50%) 0 ml IV UD PRN PRN Reason: Hypoglycemia Diagnostic Test (Pha) (Accu-Chek) 1 each FS ACHS [facility] Last Admin: 08/26/18 06:40 Dose: 1 each Documented by: Docusate Sodium (Colace) 100 mg PO BID [facility] Last Admin: 08/25/18 21:24 Dose: Not Given Documented by: Ergocalciferol (Drisdol) 50,000 unit PO Mo@0900 [facility] Furosemide (Lasix) 40 mg PO BID [facility] Last Admin: 08/25/18 21:24 Dose: 40 mg Documented by: Gabapentin (Neurontin) 100 mg PO TID [facility] Last Admin: 08/25/18 21:24 Dose: 100 mg Documented by: Glucose (Insta-Glucose) 15 gm PO PRN PRN PRN Reason: Hypoglycemia Heparin Sodium (Porcine) (Heparin) 5,000 unit SQ Q12 [facility] Last Admin: 08/25/18 21:20 Dose: 5,000 unit Documented by: Magnesium Sulfate (Magnesium Sulfate) 2 gm in 50 mls @ 50 mls/hr IV UD PRN PRN Reason: MG = or < 1.7 Acetaminophen (Ofirmev) 1,000 mg in 100 mls @ 200 mls/hr IV Q6HP PRN PRN Reason: PAIN/FEVER > 101 Gentamicin Sulfate 40 mg/Clindamycin Phosphate 300 mg/Bacitracin 25,000 unit/ Sodium Chloride 503 mls @ 0 mls/hr IRR Q12H [facility] Last Admin: 08/26/18 01:12 Dose: 1 mls/hr Documented by: Insulin Human Lispro (Humalog) 0 unit SQ ACHS [facility]; Protocol Last Admin: 08/26/18 06:42 Dose: Not Given Documented by: Iron Carb/Multivit/[place]/Folic Acid (Multivitamin W/Minerals) 1 tab PO DAILY [facility] Last Admin: 08/25/18 09:06 Dose: 1 tab Documented by: Ondansetron HCl (Zofran) 4 mg IV Q4-6HP PRN PRN Reason: Nausea And Vomiting Last Admin: 08/23/18 04:54 Dose: 4 mg Documented by: Potassium Chloride (Klor-Con) 40 meq PO DAILYP PRN PRN Reason: K+ < 3.5 Potassium Chloride (Kdur) 20 meq PO TIDCC [facility] Last Admin: 08/25/18 17:50 Dose: 20 meq Documented by: Salmeterol Xinafoate (Serevent) 1 puff INH BID [facility] Last Admin: 08/25/18 21:28 Dose: Not Given Documented by: Senna/Docusate Sodium (Senna Plus Tablet) 1 tab PO HS [facility] Last Admin: 08/25/18 21:23 Dose: 1 tab Documented by: Simvastatin (Zocor) 20 mg PO DAILY [facility] Last Admin: 08/25/18 09:07 Dose: 20 mg Documented by: Sitagliptin Phosphate (Januvia) 100 mg PO DAILY [facility] Last Admin: 08/25/18 09:07 Dose: 100 mg Documented by: Sodium Chloride (Saline Flush) 10 ml IV Q8 [facility] Last Admin: 08/26/18 06:40 Dose: 10 ml Documented by: Medical - PN: A/P - Time Spent With Patient Total time spent is greater than 50% in coordination of care (as documented) at patient's floor/unit and/or counseling patient: - Narrative A/P Narrative: A: *Diabetic ulcer and cellulitis RLE: cultures positive for Pseudomonas. *History of CAD continue statin/Coreg/Lasix *History of hypertension on Coreg/clonidine *Neuropathy on gabapentin *History of COPD(does not use home O2): on bronchodilators Plan: -ID following: Stopped IV Vanc and IV Zosyn, Started PO Ciprofloxacin 750 mg bid which can be continued until 08/31/18, Pt counselled to f/u with wound care, keep the wounds away from any pet contact, MRSA precautions can be stopped as pt doesn't report any Hx of MRSA and neither has any positive microbiology suggestive of MRSA in our EMR. -Continue wound care per Dr. nolan -cont cardiac meds -PT OT/nutrition support -d/c planning for monday -ppx: heparin Full Code Medical - PN: Qual - VTE Deep Vein Thrombosis/Pulmonary Embolism Present on Admission: No
[2018-08-26] MEDS: cloNIDine HCL 0.1 MG TABLET PO SCH ×2 (10:24→23:17)
[2018-08-26] MEDS: CARVEDILOL 12.5 MG TABLET PO SCH ×2 (10:25→17:33)
[2018-08-26] MEDS: CIPROFLOXACIN 250 MG TABLET PO SCH ×2 (10:25→23:09)
[2018-08-26] MEDS: SIMVASTATIN 20 MG TABLET PO SCH (10:25)
[2018-08-26] MEDS: POTASSIUM CHLORIDE 10 MEQ TABLET PO SCH ×3 (10:25→17:34)
[2018-08-26] MEDS: sitaGLIPtin 100 MG TABLET PO SCH (10:25)
[2018-08-26] MEDS: GABAPENTIN 100 MG CAPSULE PO SCH ×3 (10:26→23:16)
[2018-08-26] MEDS: FUROSEMIDE 40 MG TABLET PO SCH ×2 (10:26→23:17)
[2018-08-26] MEDS: DOCUSATE SODIUM 100 MG CAPSULE PO SCH ×2 (10:26→23:17)
[2018-08-26] MEDS: MULTIVIT,THER IRON,CA,FA & MIN 1 TABLET PO SCH (10:26)
[2018-08-26] MEDS: HEPARIN 5,000 UNIT/ML VIAL SQ SCH ×2 (10:29→23:17)
[2018-08-26] MEDS: SALMETEROL XINAFOATE 1 PUFF INHALER INH SCH ×2 (10:32→23:21)
[2018-08-26 12:10] LABS: Blood Urea Nitrogen 13 mg/dl (8-23)
--- NOTE | 2018-08-26 12:41 | Discharge Summary ---
Medical - DS: Prov Patient information: Note initiated : 08/26/18 at 12:39 pm Service Date, if different from initiated Date: [] Patient: Cony Baig 67 y/o F admitted on 08/22/18 for Open Sore To Right Leg. Chief Complaint: [] Date of admission: 08/22/18 15:10 Discharge date: 08/27/18 Primary care physician: ALESIA Rodriguez Consults: 08/22/18 15:26 Consult to Physician [CONS] Routine Comment: Consulting Provider: Ronal Oseguera Reason For Exam: Physician to Consult 08/23/18 10:35 Consult to Physician [CONS] Routine Comment: right leg - antibiotics Consulting Provider: Robbi Olivera Reason For Exam: Physician to Consult Medical - DS: Meds - Discharge Medications Prescriptions: Ciprofloxacin [Cipro] 750 mg PO BID #8 tab Active and Home Medications: Home Medications Albuterol Sulfate [Proair Hfa] 8.5 gm IH Q4 04/28/16 [History Confirmed 08/22/18 Last Taken 08/01/17] Carvedilol [Coreg] 25 mg PO BID 04/28/16 [History Confirmed 08/22/18 Last Taken 08/01/17] Furosemide [Lasix] 40 mg PO BID 04/28/16 [History Confirmed 08/22/18 Last Taken 08/01/17] Lovastatin [Altoprev] 40 mg PO DAILY 04/28/16 [History Confirmed 08/22/18 Last Taken 08/01/17] Potassium Chloride [Kdur] 20 meq PO TIDCC 04/28/16 [History Confirmed 08/22/18 Last Taken 08/01/17] Salmeterol Xinafoate [Serevent] 50 mcg IH BID 04/28/16 [History Confirmed 08/22/18 Last Taken 08/01/17] cloNIDine HCL [Catapres] 0.6 mg PO BID 04/28/16 [History Confirmed 08/22/18 Last Taken 08/01/17] Ergocalciferol (Vitamin D2) [Vitamin D2] 50,000 unit PO WEEKLY 05/07/16 [History Confirmed 08/22/18 Last Taken 08/01/17] Gabapentin [Neurontin] 100 mg PO TID #90 cap 07/04/17 [Rx Confirmed 08/22/18 Last Taken 08/01/17] Albuterol Sulfate [Ventolin] 2.5 mg NEB Q4HP PRN #120 ampul.neb 02/23/18 [Rx Confirmed 08/22/18 Last Taken Unknown] Medical - DS: Hosp Hospital course: Ms. Baig is a 67 year old F with a history of diabetes and peripheral Artery disease with chronic bilateral lower extremity venous ulceration which has been managed in the past by wound care clinic. Patient comes in with worsening right lower extremity redness swelling along with pain that has evolved over the last 3 weeks. Patient failed to follow-up with wound care clinic due to fear of initiation of blood work and fear of needle . However she continued to work with the symptoms until her wound deteriorated with resultant putrid foul- smelling odor, serosanguineous bloody discharge, worsening pain and swelling that prompted her to come to the ER today. She however denies associated fever, myalgia or arthralgia But experiencing frequent chills. Initial workup in the ER was consistent with extensive right lower extremity venous ulceration/tissue necrosis cellulitis/nonhealing wound in the setting of diabetes. CT lower extremity was consistent with cellulitis without osteomyelitis. Wound care/hospitalist service was consulted. Patient was started on antibiotics. Cultures were drawn. At the time of evaluation patient is alert oriented. She is able to answer most of the questions and endorses a history as above. She denies recent trauma, changes in medications, recent antibiotic use. 08/23-no overnight events. Ongoing wound care per credit collections specialist. Wound culture positive for Pseudomonas. White count 10.6, ESR 97. Afebrile. No concerns per staff. Continue antibiotic coverage. 08/24-patient seen in room. No overnight events. No fever chills. Wound is improving. Discussed with surgery. Patient will require continued wound management/antibiotics and will possibly discharge early next week if continues to improve. Denies fever chills nausea vomiting. Tolerating diet and therapy. Blood sugars at goal. On vancomycin and Zosyn 08/25 Slept well. No overnight events. No new complaints. Dressing intact. Does have a mild cough from a recent cold. 08/26 Slept well. No new complaints. Dressing intact. Leg tender and sensitive to touch. therapy per wound care. 08/27 Doing well, no new complaints. Stable for discharge. Discharge diagnosis: Diabetic ulcer with cellulitis of the right lower extremity Secondary discharge diagnosis: CAD hypertension neuropathy COPD - Time Spent with Patient Total time spent providing and/or coordinating discharge services: Greater than 30 minutes Medical - DS: Exam - Constitutional Vitals: Vital Signs Temp Pulse Resp BP Pulse Ox 08/26/18 11:58 97.4 F 18 140/86 91 08/26/18 08:00 97.1 F 74 18 128/82 95 08/26/18 04:15 97.0 F 65 20 125/66 95 08/25/18 23:30 97.6 F 62 20 124/68 92 08/25/18 20:20 97.8 F 73 22 116/60 90 08/25/18 16:45 97.4 F 74 18 138/82 91 Intake and Output 08/25/18 08/26/18 08/26/18 21:59 05:59 13:59 Intake Total 970 800 Output Total 600 650 Balance -600 320 800 Intake: Oral 970 800 Output: Void Amount 600 650 Other: Meal Cottage cheese, fruit, apple juice Percent of Meal Consumed 100% Feeding Ability Independent Stool Size Large Small Stool Color Brown Brown Stool Consistency Soft Formed # Voids 1 # Bowel Movements 1 1 Weight 109.543 kg Medical - DS: Data Labs on day of discharge: Labs from last 24 hours 08/26/18 08/26/18 09:27 06:30 Sodium 137 TNP Potassium 4.1 TNP Chloride 95 L TNP Carbon Dioxide 31 H TNP Anion Gap 11.0 TNP BUN 13 TNP Creatinine 0.8 TNP GFR Calculation 77 TNP Glucose 170 H TNP Calcium 9.4 TNP Preliminary micro results at discharge 08/22/18 16:44 Blood Culture - Preliminary Blood Medical - DS: A/P - Patient/Caregiver Discharge Instructions Activity: increase activity as tolerated Diet: Cardiac, Consistent Carbohydrate Prescriptions: Ciprofloxacin [Cipro] 750 mg PO BID #8 tab - Follow up Plan Follow up with: Roxana Oliveira ARNP [Primary Care Provider] - Ronal Oseguera MD [Physician] - Robbi Olivera MD [Physician] - Disposition: Home Health Service Prognosis: Fair Rehab Potential: Fair Overall status at discharge: patient is progressing back to baseline Medical - DS: Qual - VTE Deep Vein Thrombosis/Pulmonary Embolism Present on Admission: No
[2018-08-26] MEDS: SENNOSIDES/DOCUSATE SODIUM 1 TAB TABLET PO SCH (23:16)
[2018-08-27] MEDS: HYDROcodone/APAP 5/325MG TABLET PO PRN ×3 (01:14→10:49)
[2018-08-27] MEDS: GENTAMICIN SULFATE 40 MG, CLINDAMYCIN 300 MG, BACITRACIN 25,000 UNIT in SODIUM CHLORIDE... IRR SCH ×2 (01:15→13:20)
[2018-08-27] MEDS: 0.9 % SODIUM CHLORIDE 10 ML SYRINGE IV SCH ×2 (06:39→13:31)
[2018-08-27] MEDS: CIPROFLOXACIN 250 MG TABLET PO SCH (08:46)
[2018-08-27] MEDS: cloNIDine HCL 0.1 MG TABLET PO SCH (08:47)
[2018-08-27] MEDS: CARVEDILOL 12.5 MG TABLET PO SCH (08:48)
[2018-08-27] MEDS: sitaGLIPtin 100 MG TABLET PO SCH (08:48)
[2018-08-27] MEDS: SIMVASTATIN 20 MG TABLET PO SCH (08:48)
[2018-08-27] MEDS: MULTIVIT,THER IRON,CA,FA & MIN 1 TABLET PO SCH (08:48)
[2018-08-27] MEDS: FUROSEMIDE 40 MG TABLET PO SCH (08:48)
[2018-08-27] MEDS: GABAPENTIN 100 MG CAPSULE PO SCH ×2 (08:49→16:26)
[2018-08-27] MEDS: POTASSIUM CHLORIDE 10 MEQ TABLET PO SCH ×2 (08:49→11:36)
[2018-08-27] MEDS: DOCUSATE SODIUM 100 MG CAPSULE PO SCH (08:49)
[2018-08-27] MEDS: INSULIN LISPRO 1 UNIT/0.01 ML UNIT SQ SCH ×2 (08:52→11:37)
[2018-08-27] MEDS: HEPARIN 5,000 UNIT/ML VIAL SQ SCH (08:52)
[2018-08-27] MEDS: SALMETEROL XINAFOATE 1 PUFF INHALER INH SCH (08:56)
[2018-08-27] MEDS ORDERED: ERGOCALCIFEROL (VITAMIN D2) 50,000 UNIT CAPSULE PO SCH (09:00)
--- NOTE | 2018-08-27 13:08 | General Surgery Progress Note ---
Subjective Narrative: Note initiated : 08/27/18 at 1:04 pm Service Date, if different from initiated Date: [] Patient: Cony Baig 67 y/o F admitted on 08/22/18 for Open Sore To Right Leg. Chief Complaint: [] Saw patient on rounds and examined wound with Kinsey RN. PATIENT IS DOING WELL. No new complaints. Objective Temp Pulse Resp BP Pulse Ox 97.9 F 60 18 124/79 91 08/27/18 06:28 08/27/18 04:00 08/27/18 06:28 08/27/18 06:28 08/27/18 06:28 - Additional Data Intake & Output - Last 24 hours: Intake & Output 08/25/18 08/26/18 08/27/18 08/28/18 05:59 05:59 05:59 05:59 Intake Total 2600 970 1200 Output Total 900 1900 600 700 Balance 1700 -930 600 -700 Weight 241 lb 241 lb 8 oz 243 lb 08/27/18 13:05 AVSS. No changes IZA. L/E. Right leg: Resolving csssi / cellulitis. Still has significant lymphatic and purulent drainage. Pain has resolved and patient is ambulating well. - Labs 08/25/18 04:47 08/26/18 09:27 Assessment and Plan (1) Dermatitis fungal Problem details: Will treat with chlorhexidene wash and topical antifungal cream / ointment Status: Acute Current Visit: Yes (2) Cellulitis Problem details: Patient already started on IV antibiotics Status: Acute Current Visit: Yes (3) Edema extremities Problem details: Will treat with spiral compression bandages and elevation of legs on pillows. Status: Chronic Current Visit: No - Time Spent With Patient Total time spent is greater than 50% in coordination of care (as documented) at patient's floor/unit and/or counseling patient: Assessment: H/O C. MRSA colonization Pseudomonas dermatitis and cellulitis with lymphorrhea IMPROVING Responding to treatment, Local wound care and PO antibiotics ( Cipro ) Plan: NEEDS DAILY wound care and dressing changes. Topical GCB wet to dry dressing changes and PO Cipro 750mg BID OK to discharge home, if arrangements are completed. F/U at wound clinic in ONE week after discharge. 25 - 35 minutes
== END 2018-08-27 16:18 | disposition home health service (06) | DRG 300 ==
LOC: ED 10:19 → MEDSUR 15:10
PROVIDERS: ADMIT Internal Medicine; ATTEND Internal Medicine

== ENCOUNTER 2018-10-24 21:05 | Inpatient (IN) ==
[2018-10-24] MEDS ORDERED: methylPREDNISolone SOD SUCC 125 MG/2 ML VIAL IV ONE (21:17)
[2018-10-24] MEDS ORDERED: IPRATROPIUM/ALBUTEROL 3 ML AMPUL.NEB NEB ONE ×2 (21:17→22:44)
--- NOTE | 2018-10-24 21:36 | Emergency Department Note ---
SOB HPI - General Chief Complaint: Shortness of Breath/Dyspnea Stated Complaint: SOB Time Seen by Provider: 10/24/18 21:26 Source: patient Mode of arrival: EMS Limitations: physical limitation - History of Present Illness Patient has a history of asthma/bronchitis over the past several years. SHe has a hand-held nebulizer which she uses a at home states that she is been having wheezing over the past week and her nebulizer treatments have not been breaking the wheezing as much as he normally has in the past. Patient has never smoked she does not have COPD she statesTemperature is 99.2 the pulse is 99 respirations are 32 pulse ox is 192/126 sats are running at 95% on 2 L patient is able to speak in full sentences she is very agitated about having an IV when wearing any give the Solu-Medrol patient questioning not to have an IV and we have given it to her prednisone orally - Related Data Home Medications Medication Instructions Recorded Confirmed Albuterol Sulfate [Proair Hfa] 8.5 gm IH Q4 04/28/16 08/30/18 Carvedilol [Coreg] 25 mg PO BID 04/28/16 08/30/18 Furosemide [Lasix] 40 mg PO BID 04/28/16 08/30/18 Lovastatin [Altoprev] 40 mg PO DAILY 04/28/16 08/30/18 Potassium Chloride [Kdur] 20 meq PO TIDCC 04/28/16 08/30/18 Salmeterol Xinafoate [Serevent] 50 mcg IH BID 04/28/16 08/30/18 cloNIDine HCL [Catapres] 0.6 mg PO BID 04/28/16 08/30/18 Ergocalciferol (Vitamin D2) 50,000 unit PO WEEKLY 05/07/16 08/30/18 [Vitamin D2] Previous Rx's Medication Instructions Recorded Gabapentin [Neurontin] 100 mg PO TID #90 cap 07/04/17 Albuterol Sulfate [Ventolin] 2.5 mg NEB Q4HP PRN #120 ampul.neb 02/23/18 Ciprofloxacin [Cipro] 750 mg PO BID #8 tab 08/26/18 Allergies Allergy/AdvReac Type Severity Reaction Status Date / Time lidocaine AdvReac Intermediate Muscle Pain Verified 09/27/18 14:15 morphine AdvReac Intermediate Vomiting Verified 09/27/18 14:15 wool AdvReac Intermediate Rash Verified 09/27/18 14:15 tramadol AdvReac Mild Vomiting Verified 09/27/18 14:15 Review of Systems All systems ED: reviewed and negative except as stated. Constitutional: Denies: fever, chills Respiratory: Reports: shortness of breath, wheezes Gastrointestinal: Denies: abdominal pain, nausea Past Medical History - [facility] Narrative: All Active Problems Cellulitis (Acute) Edema extremities (Chronic) Diabetes (Acute) Chronic hyperkalemia (Acute) Venous stasis ulcer of both lower extremities without varicose veins (Acute) Cellulitis and abscess of leg (Acute) Diabetic ankle ulcer (Acute) Asthma with exacerbation (Acute) Dermatitis fungal (Acute) Medical history: Reports: arthritis, COPD, DM, hyperlipidemia, hypertension, migraine, osteoporosis, other INFORMATION CONSULTANT history: Reports: bilateral tubal ligation Surgical history ED: Reports: hysterectomy, orthopedic, other (shoulder) Family history: Reports: non-contributory - Social History smoking status: Never smoker Alcohol use: Reports: None Drug use: Reports: none Physical Exam Limitations: physical limitation General appearance: alert Head: atraumatic, normocephalic Eye: Present: normal appearance, PERRL ENT: normal exam, normal oropharynx, mucous membranes moist Neck: Present: normal inspection, full ROM. Absent: trachea midline Chest: Present: normal inspection. Absent: symmetric chest wall rise, tenderness Respiratory: Present: wheezes. Absent: respiratory distress, rales/crackles Cardiovascular: Present: regular rate, normal rhythm Abdominal: Present: soft. Absent: distention, tenderness, guarding, rebound Extremities: Present: normal inspection, full ROM, normal capillary refill. Absent: tenderness Neurological: Present: alert, oriented X3, CN II-XII intact Psychiatric: Present: normal affect, normal mood. Absent: depressed, agitated, anxious Course Vital Signs Temperature 99.2 F H 10/24/18 21:06 Pulse Rate 99 H 10/24/18 21:06 Respiratory Rate 32 H 10/24/18 21:06 Blood Pressure 192/126 10/24/18 21:06 Pulse Oximetry (%) 95 10/24/18 21:06 Temperature 99.0 F 10/25/18 00:32 Pulse Rate 114 H 10/25/18 01:01 Respiratory Rate 21 10/25/18 01:14 Blood Pressure 191/141 10/25/18 01:01 Pulse Oximetry (%) 90 10/25/18 01:01 Shortness of Breath/Dyspnea - [facility] Narrative Medical decision making narrative: Chest x-ray shows CHFWBC is 9500 to hemoglobin 12.6 hematocrit of 37.5 lactic acid is 1.7 sodium is 139 potassium 4.1 and BUN is 8 creatinine 0.7 BNP is 2887 calcitonin levels less than 0.05 troponin less than 0.01 - Lab Data Result diagrams: 10/24/18 22:33 Lab Results 10/24/18 10/24/18 10/24/18 Range/Units 00:00 22:33 22:33 WBC 9.5 (4.5-11.0) K/mcL RBC 4.29 (4.00-5.20) M/mcL Hgb 12.6 (12.0-15.0) g/dL Hct 37.5 (36.0-48.0) % POC Hct 38.0 (36.0-48.0) % MCV 87.5 (80.0-100.0) fL MCH 29.5 (26.0-34.0) pg MCHC 33.7 (31.0-36.0) g/dL RDW 14.3 (11.5-14.5) % Plt Count 267 (140-440) K/mcL MPV 7.5 (7.4-10.4) fL Gran % 73.9 (38.0-78.0) % Lymph % (Auto) 19.6 (15.5-49.0) % Evangeline % (Auto) 3.2 (1.0-12.0) % Eos % (Auto) 2.7 (0.0-7.0) % Baso % (Auto) 0.6 (0.0-2.0) % Gran # 6.9 (1.8-8.0) K/mcL Lymph # (Auto) 1.9 (1.5-4.8) K/mcL Evangeline # (Auto) 0.3 (0.1-0.9) K/mcL Eos # (Auto) 0.3 (0.0-0.7) K/mcL Baso # (Auto) 0.1 (0.0-0.3) K/mcL VBG Lactic Acid 1.7 (0.5-2.0) mmol/L POC Sodium 139 (133-145) mmol/L POC Potassium 4.1 (3.3-5.1) mmol/L POC Chloride 102 (96-108) mmol/L POC Total CO2 25 (22-30) mmol/L POC BUN 8 (8-23) mg/dl POC Creatinine 0.7 (0.6-1.1) mg/dl POC Glucose 166 H (70-105) mg/dL POC WB Ioniz Calcium 1.11 L (1.16-1.32) mmol/L Total Creatine Kinase (24-170) IU/L CK-MB (CK-2) (0-2.9) ng/ml Myoglobin (25-58) ng/ml Troponin T (0-0.03) ng/ml NT-Pro-B Natriuret Pep (0-125) pg/ml Procalcitonin (<0.10) ng/mL 10/24/18 10/24/18 10/24/18 Range/Units 22:33 22:33 22:33 WBC (4.5-11.0) K/mcL RBC (4.00-5.20) M/mcL Hgb (12.0-15.0) g/dL Hct (36.0-48.0) % POC Hct (36.0-48.0) % MCV (80.0-100.0) fL MCH (26.0-34.0) pg MCHC (31.0-36.0) g/dL RDW (11.5-14.5) % Plt Count (140-440) K/mcL MPV (7.4-10.4) fL Gran % (38.0-78.0) % Lymph % (Auto) (15.5-49.0) % Evangeline % (Auto) (1.0-12.0) % Eos % (Auto) (0.0-7.0) % Baso % (Auto) (0.0-2.0) % Gran # (1.8-8.0) K/mcL Lymph # (Auto) (1.5-4.8) K/mcL Evangeline # (Auto) (0.1-0.9) K/mcL Eos # (Auto) (0.0-0.7) K/mcL Baso # (Auto) (0.0-0.3) K/mcL VBG Lactic Acid (0.5-2.0) mmol/L POC Sodium (133-145) mmol/L POC Potassium (3.3-5.1) mmol/L POC Chloride (96-108) mmol/L POC Total CO2 (22-30) mmol/L POC BUN (8-23) mg/dl POC Creatinine (0.6-1.1) mg/dl POC Glucose (70-105) mg/dL POC WB Ioniz Calcium (1.16-1.32) mmol/L Total Creatine Kinase 40 (24-170) IU/L CK-MB (CK-2) 2.5 (0-2.9) ng/ml Myoglobin 29 (25-58) ng/ml Troponin T 0.01 (0-0.03) ng/ml NT-Pro-B Natriuret Pep 2887.0 H (0-125) pg/ml Procalcitonin < 0.05 (<0.10) ng/mL Disposition Pt seen by LAWN SERVICE SUPERVISOR/PA only: No Clinical Impression: CHF (congestive heart failure) Disposition: Xfer As Inpt ([facility]) Condition: Fair Referrals: Roxana Oliveira ARNP [Primary Care Provider] -
[2018-10-24] MEDS ORDERED: hydrALAZINE 20 MG/ML VIAL IV ONE (22:43)
[2018-10-24 22:57] LABS: Basophils # (Auto) 0.1 K/mcL (0.0-0.3); Basophils % (Auto) 0.6 % (0.0-2.0); Eosinophils # (Auto) 0.3 K/mcL (0.0-0.7); Eosinophils % (Auto) 2.7 % (0.0-7.0); Granulocytes % (Auto) 73.9 % (38.0-78.0); Lymphocytes # (Auto) 1.9 K/mcL (1.5-4.8); Lymphocytes % (Auto) 19.6 % (15.5-49.0); Mean Cell Volume 87.5 fL (80.0-100.0); Mean Corpuscular HGB Conc 33.7 g/dL (31.0-36.0); Monocytes # (Auto) 0.3 K/mcL (0.1-0.9); Monocytes % (Auto) 3.2 % (1.0-12.0); Platelet Count 267 K/mcL (140-440); RBC 4.29 M/mcL (4.00-5.20); Red Cell Distribution Width 14.3 % (11.5-14.5)
[2018-10-24] MEDS ORDERED: FUROSEMIDE 40 MG/4 ML VIAL IV ONE (23:03)
[2018-10-24] MEDS ORDERED: cefTRIAXone 1 GM in DEXTROSE 5% IN WATER 50 ML IV ONE (23:25)
[2018-10-24] MEDS ORDERED: AZITHROMYCIN 500 MG in DEXTROSE 5% IN WATER 250 ML IV ONE (23:27)
[2018-10-25 00:02] LABS: Creatine Kinase MB 2.5 ng/ml (0-2.9)
[2018-10-25] MEDS ORDERED: ACETAMINOPHEN 325 MG TABLET PO ONE (00:21)
[2018-10-25] MEDS ORDERED: ONDANSETRON 4 MG ODT TABLET SL ONE (00:30)
[2018-10-25] MEDS ORDERED: cefTRIAXone 1 GM VIAL ONE (01:04)
[2018-10-25] MEDS ORDERED: 0.9 % SODIUM CHLORIDE 1,000 ML IV SCH ×2 (01:30→11:52)
[2018-10-25] MEDS ORDERED: NITROGLYCERIN/D5W 250 ML IV ONE (03:07)
[2018-10-25] MEDS ORDERED: NITROGLYCERIN/D5W 25 MG/250 ML BOTTLE IV SCH ×2 (03:15→11:52)
--- NOTE | 2018-10-25 04:37 | XRay Report ---
CLINICAL INFORMATION: dyspnea COMPARISON: 08/22/2018 FINDINGS: The heart is moderately enlarged. There is also moderate congestion of pulmonary vasculature resulting in bilateral hilar enlargement. Interstitial edema has developed throughout both lungs, but predominantly the perihilar regions. Mild bibasilar airspace disease is likely edema or atelectasis. IMPRESSION: Moderate CHF. Suggest: two-view upright chest x-ray, following diuresis, to reassess the lower lobes for airspace disease and to ensure normalization of the hilar regions Interpreted and Authenticated by: Rhys Wong 10/25/18
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
[2018-10-25] MEDS ORDERED: ALBUTEROL SULFATE 2.5 MG/3 ML NEBULIZER NEB PRN ×2 (07:30→11:52)
[2018-10-25] MEDS ORDERED: FUROSEMIDE 40 MG/4 ML VIAL IV ONE (07:31)
[2018-10-25] MEDS ORDERED: POTASSIUM CHLORIDE 10 MEQ TABLET PO SCH (08:00)
[2018-10-25] MEDS ORDERED: ACETAMINOPHEN 325 MG TABLET PO PRN (08:10)
[2018-10-25] MEDS ORDERED: cloNIDine HCL 0.1 MG TABLET PO SCH (09:00)
[2018-10-25] MEDS ORDERED: GABAPENTIN 100 MG CAPSULE PO SCH (09:00)
[2018-10-25] MEDS ORDERED: SALMETEROL XINAFOATE 50 MCG INH SCH (09:00)
[2018-10-25] MEDS: 0.9 % SODIUM CHLORIDE 10 ML SYRINGE IV SCH ×3 (11:00→21:44)
[2018-10-25] MEDS ORDERED: IPRATROPIUM/ALBUTEROL 3 ML AMPUL.NEB NEB PRN (11:52)
[2018-10-25] MEDS ORDERED: POTASSIUM CHLORIDE 20 MEQ TABLET PO PRN ×2 (11:52)
[2018-10-25] MEDS ORDERED: SENNOSIDES 1 TABLET PO PRN (11:52)
[2018-10-25] MEDS ORDERED: DEXTROSE 31 GM ORAL.SUSP PO PRN (11:52)
[2018-10-25] MEDS ORDERED: DEXTROSE 50% 50 ML VIAL IV PRN (11:52)
[2018-10-25] MEDS ORDERED: ONDANSETRON 4 MG/2 ML VIAL IV PRN (11:52)
[2018-10-25] MEDS ORDERED: ENALAPRILAT 1.25 MG/ML VIAL IV PRN (11:52)
[2018-10-25] MEDS ORDERED: LACTULOSE 20 GM/30 ML ORAL.SOL PO PRN (11:52)
[2018-10-25] MEDS ORDERED: METOCLOPRAMIDE 10 MG/2 ML VIAL IV PRN (11:52)
[2018-10-25] MEDS ORDERED: POLYETHYLENE GLYCOL 3350 17 GM PACKET PO PRN (11:52)
[2018-10-25] MEDS ORDERED: MAGNESIUM SULFATE 2 GM/50 ML BAG IV PRN (11:52)
[2018-10-25] MEDS ORDERED: POTASSIUM CHLORIDE 40 MEQ in DEXTROSE 5% IN WATER 500 ML IV PRN (11:52)
[2018-10-25 12:08] LABS: ALT/SGPT 17 U/l (0-40); Albumin 4.1 gm/dL (3.2-5.2); Albumin/Globulin Ratio 1.4 (1.0-2.3); Alkaline Phosphatase 77 U/L (39-117); Bilirubin,Direct < 0.2 mg/dL (0.0-0.3); Blood Urea Nitrogen 11 mg/dl (8-23); Gamma Glutamyl Transpeptidase 56 U/L (5-36); Uric Acid 6.2 mg/dL (2.5-8.0)
[2018-10-25] MEDS: POTASSIUM CHLORIDE 10 MEQ TABLET PO SCH ×2 (12:20→17:37)
[2018-10-25] MEDS: INSULIN LISPRO 1 UNIT/0.01 ML UNIT SQ SCH ×3 (12:21→20:29)
[2018-10-25] MEDS: ACETAMINOPHEN 325 MG TABLET PO PRN ×2 (13:42→19:40)
[2018-10-25] MEDS ORDERED: 0.9 % SODIUM CHLORIDE 10 ML SYRINGE IV SCH ×2 (14:00)
[2018-10-25] MEDS ORDERED: ENOXAPARIN 40 MG/0.4 ML SYRINGE SQ ONE (14:30)
[2018-10-25] MEDS: GABAPENTIN 100 MG CAPSULE PO SCH ×2 (14:53→20:18)
[2018-10-25] MEDS ORDERED: FUROSEMIDE 40 MG TABLET PO SCH (16:00)
[2018-10-25] MEDS: ENALAPRILAT 2.5 MG/2 ML VIAL IV PRN ×3 (17:40→23:06)
[2018-10-25] MEDS: cloNIDine HCL 0.1 MG TABLET PO SCH (20:18)
[2018-10-25] MEDS: DOCUSATE SODIUM 100 MG CAPSULE PO SCH (20:18)
[2018-10-25] MEDS: SALMETEROL XINAFOATE 50 MCG INH SCH (20:19)
[2018-10-25] MEDS ORDERED: SIMVASTATIN 20 MG TABLET PO SCH ×2 (21:00)
[2018-10-25] MEDS ORDERED: LOSARTAN 25 MG TABLET PO SCH ×2 (21:00)
[2018-10-26] MEDS: ENALAPRILAT 2.5 MG/2 ML VIAL IV PRN ×2 (05:32→18:43)
[2018-10-26] MEDS: 0.9 % SODIUM CHLORIDE 10 ML SYRINGE IV SCH ×5 (05:33→21:18)
[2018-10-26 06:09] LABS: ALT/SGPT 12 U/l (0-40); Albumin 3.5 gm/dL (3.2-5.2); Albumin/Globulin Ratio 1.2 (1.0-2.3); Alkaline Phosphatase 66 U/L (39-117); Bilirubin,Direct < 0.2 mg/dL (0.0-0.3); Blood Urea Nitrogen 18 mg/dl (8-23); Gamma Glutamyl Transpeptidase 51 U/L (5-36); Uric Acid 6.7 mg/dL (2.5-8.0)
[2018-10-26 06:14] LABS: Basophils # (Auto) 0 K/mcL (0.0-0.3); Basophils % (Auto) 0.3 % (0.0-2.0); Eosinophils # (Auto) 0 K/mcL (0.0-0.7); Eosinophils % (Auto) 0.2 % (0.0-7.0); Lymphocytes # (Auto) 2.6 K/mcL (1.5-4.8); Lymphocytes % (Auto) 24.2 % (15.5-49.0); Mean Cell Volume 91.4 fL (80.0-100.0); Monocytes # (Auto) 0.7 K/mcL (0.1-0.9); Monocytes % (Auto) 6.3 % (1.0-12.0); Platelet Count 283 K/mcL (140-440); Red Cell Distribution Width 15.4 % (11.5-14.5)
[2018-10-26] MEDS: INSULIN LISPRO 1 UNIT/0.01 ML UNIT SQ SCH ×4 (07:08→21:17)
[2018-10-26] MEDS ORDERED: HYDROCHLOROTHIAZIDE 25 MG TABLET PO ONE (07:09)
[2018-10-26] MEDS ORDERED: FUROSEMIDE 40 MG TABLET PO ONE (07:10)
--- NOTE | 2018-10-26 07:14 | Internal Med Progress Note ---
Medical - PN: Subj Patient information: Note initiated : 10/26/18 at 7:02 am Service Date, if different from initiated Date: [] Patient: Cony Baig 67 y/o F admitted on 10/25/18 for Shortness of breath. Chief Complaint: [] Interval history: She has been using a hand nebulizer over the past week and her nebulizer treatments have not been improving her breathing is much as they normally do. She states about 10 days days ago developed bronchitis with shortness of breath mild cough symptoms continued about 5 days ago significantly worsen since her cough is nonproductive but she can have increasing shortness of breath. She does have swelling in her legs especially her left which is worse than usual. She says she has been taking her blood pressure medications including clonidine which he took yesterday yesterday morning. She has been using her inhalers at home but they have not been helping. She has a headache. She does have chest wall and rib pain from coughing. Denies history of heart failure. Plans to live until 89 years of age. She is found to have severely elevated blood pressure and pulmonary edema and given Lasix. Good urine output in the ED. 10/26 Feeling much better. Shortness of breath significantly improved. Does have cough which she states is dry. No other acute complaints. No overnight events. Review of Systems: denies headache/fever/chills/nausea/vomiting/chest or abdominal pain/diarrhea. Otherwise see above. - Constitutional Vitals: Vital Signs Temp Pulse Resp BP Pulse Ox 98.6 F 68 19 143/80 97 10/26/18 04:01 10/26/18 06:06 10/26/18 06:06 10/26/18 06:06 10/26/18 06:06 Period Temp Pulse Resp BP Sys/Najera Pulse Ox Last 24 Hr 98.4 F-98.9 F 57-93 13-31 101-205/55-121 88-99 Intake and Output 10/25/18 10/26/18 10/26/18 21:59 05:59 13:59 Intake Total 912 980 Output Total 1300 500 350 Balance -388 480 -350 Weight 118.705 kg Intake & Output: Intake & Output 10/25/18 10/26/18 10/26/18 21:59 05:59 13:59 Intake Total 912 980 Output Total 1300 500 350 Balance -388 480 -350 Weight 118.705 kg Intake: IV 312 Oral 600 980 Output: Void Amount 1300 500 350 Other: Meal Dinner Percent of Meal Consumed 100% Urine Appearance Clear Clear Urine Color Bright Yellow Bright Yellow Urine Odor Normal Exam: General: Alert, Awake, No acute Distress, morbid obesity Eyes/N/T: EOMI, Head/Neck: neck supple, unable to assess for JVD given pannus neck CV: RRR, No murmurs, Pulm: Bilateral rales, diminished, no wheezing Abd: soft, nontender, +BS x4 Ext: no clubbing/cyanosis. 1+ left lower extremity edema much improved, mild right lower extremity edema Neuro: Alert, no focal deficits, moves all extremities, Skin: warm/dry Medical - PN: Obj Da - Labs CBC & Chem 7: 10/26/18 04:00 10/26/18 04:00 Labs: Abnormal Lab Results 10/26/18 10/26/18 10/25/18 04:00 04:00 11:07 RDW 15.4 H Glucose 134 H 262 H POC Glucose POC WB Ioniz Calcium GGT 51 H 56 H NT-Pro-B Natriuret Pep Triglycerides 213 H 10/24/18 10/24/18 22:33 22:33 RDW Glucose POC Glucose 166 H POC WB Ioniz Calcium 1.11 L GGT NT-Pro-B Natriuret Pep 2887.0 H Triglycerides Meds: Medications Acetaminophen (Tylenol) 650 mg PO Q4-6HP PRN PRN Reason: PAIN/FEVER > 101 Last Admin: 10/25/18 19:40 Dose: 650 mg Documented by: Albuterol Sulfate (Ventolin) 2.5 mg NEB Q4HP PRN PRN Reason: wheezing or cough Albuterol/Ipratropium (Duoneb) 3 ml NEB Q4HP PRN PRN Reason: Shortness Of Breath Clonidine HCl (Catapres) 0.6 mg PO BID [facility] Last Admin: 10/25/18 20:18 Dose: 0.6 mg Documented by: Dextrose (Dextrose 50%) 0 ml IV UD PRN PRN Reason: Hypoglycemia Diagnostic Test (Pha) (Accu-Chek) 1 each FS ACHS [facility] Last Admin: 10/25/18 20:26 Dose: 1 each Documented by: Docusate Sodium (Colace) 100 mg PO BID [facility] Last Admin: 10/25/18 20:18 Dose: 100 mg Documented by: Enalaprilat (Enalaprilat 1.25mg/Ml 2ml Vial) 0 mg IV Q2HP PRN PRN Reason: Hypertension Last Admin: 10/26/18 05:32 Dose: 0.625 mg Documented by: Enoxaparin Sodium (Lovenox) 40 mg SQ DAILY [facility] Furosemide (Lasix) 40 mg PO BIDD [facility] Last Admin: 10/25/18 16:36 Dose: 40 mg Documented by: Gabapentin (Neurontin) 100 mg PO TID [facility] Last Admin: 10/25/18 20:18 Dose: 100 mg Documented by: Glucose (Insta-Glucose) 15 gm PO PRN PRN PRN Reason: Hypoglycemia Nitroglycerin/Dextrose (Nitroglycerin/D5w) 25 mg in 250 mls @ 3 mls/hr IV .Q24H [facility]; Protocol Last Admin: 10/25/18 16:15 Dose: Not Given Documented by: Sodium Chloride (Sodium Chloride 0.9%) 1,000 mls @ 20 mls/hr IV .Q24H [facility] Last Admin: 10/25/18 16:30 Dose: Not Given Documented by: Potassium Chloride 40 meq/ (Dextrose) 520 mls @ 130 mls/hr IV UD PRN PRN Reason: Potassium < 3 Magnesium Sulfate (Magnesium Sulfate) 2 gm in 50 mls @ 50 mls/hr IV UD PRN PRN Reason: Magnesium </= 1.6 Insulin Human Lispro (Humalog) 0 unit SQ ACHS [facility]; Protocol Last Admin: 10/25/18 20:29 Dose: 4 units Documented by: Lactulose (Cephulac) 10 gm PO DAILYP PRN PRN Reason: Constipation Losartan Potassium (Cozaar) 25 mg PO HS [facility] Last Admin: 10/25/18 20:18 Dose: 25 mg Documented by: Metoclopramide HCl (Reglan) 10 mg IV Q6HP PRN PRN Reason: Nausea And Vomiting Ondansetron HCl (Zofran) 4 mg IV Q4HP PRN PRN Reason: Nausea And Vomiting Salmeterol Xinafoate [Serevent] 50 Mcg Inhaler 1 dose INH BID [facility] Last Admin: 10/25/18 20:19 Dose: Not Given Documented by: Polyethylene Glycol (Miralax) 17 gm PO DAILYP PRN PRN Reason: Constipation Potassium Chloride (Kdur) 20 meq PO TIDCC [facility] Last Admin: 10/25/18 17:37 Dose: 20 meq Documented by: Potassium Chloride (Kdur) 40 meq PO UD PRN PRN Reason: Potssium is 3-3.5 Potassium Chloride (Kdur) 40 meq PO UD PRN PRN Reason: Potassium < 3 Senna (Senokot) 2 tab PO HSP PRN PRN Reason: Constipation Simvastatin (Zocor) 20 mg PO HS [facility] Last Admin: 10/25/18 20:18 Dose: 20 mg Documented by: Sodium Chloride (Saline Flush) 10 ml IV Q8 [facility] Last Admin: 10/26/18 05:33 Dose: 10 ml Documented by: Medical - PN: A/P - Time Spent With Patient Total time spent is greater than 50% in coordination of care (as documented) at patient's floor/unit and/or counseling patient: - Narrative A/P Narrative: A: *Acute decompensated Diastolic CHF w/pulmonary edema: -echo with normal EF, Diastolic (?grade III) dysfxn - *Acute hypoxic respiratory failure: 2/2 above -down to 1LNC *Hypertensive emergency: -nitro gtt off o/n *Diabetes w/neuropathy: on metformin at home *CAD/PAD: *Chronic bilateral lower extremity wounds: Follows with wound care *HTN/HLD: on losartan/coreg at home/clonidine *h/o asthma: *Morbid obesity * P: -IV Lasix, hctz today -Monitor urine output weights and I's and O's -restart BB in AM and titrate back up to home dose, -Continue home ARB(increase)/Clonidine - -Continue home inhalers -SSI -PT/OT -ppx: Lovenox
[2018-10-26] MEDS: POTASSIUM CHLORIDE 10 MEQ TABLET PO SCH (07:48)
--- NOTE | 2018-10-26 07:53 | XRay Report ---
CLINICAL INFORMATION: chf COMPARISON: 10/24/2018 FINDINGS: Moderate cardiomegaly is decreased. The mediastinum is unremarkable. Pulmonary vessels have returned to normal in caliber and interstitial edema has almost totally cleared with minimal perihilar residual. Mild bibasilar atelectasis noted. Small left pleural effusion IMPRESSION: Near complete resolution CHF - only minimal residual edema. Interpreted and Authenticated by: Rhys Wong 10/26/18
[2018-10-26 08:10] LABS: Hemoglobin A1C 6.9 % HGB (4.0-6.0)
[2018-10-26] MEDS: cloNIDine HCL 0.1 MG TABLET PO SCH ×2 (08:48→21:16)
[2018-10-26] MEDS: DOCUSATE SODIUM 100 MG CAPSULE PO SCH ×2 (08:48→21:17)
[2018-10-26] MEDS: GABAPENTIN 100 MG CAPSULE PO SCH ×3 (08:48→21:16)
[2018-10-26] MEDS: SALMETEROL XINAFOATE 50 MCG INH SCH ×2 (08:49→21:20)
[2018-10-26] MEDS ORDERED: POLYETHYLENE GLYCOL 3350 17 GM PACKET PO PRN (09:05)
[2018-10-26] MEDS ORDERED: POTASSIUM CHLORIDE 40 MEQ in DEXTROSE 5% IN WATER 500 ML IV PRN (09:05)
[2018-10-26] MEDS ORDERED: METOCLOPRAMIDE 10 MG/2 ML VIAL IV PRN (09:05)
[2018-10-26] MEDS ORDERED: LACTULOSE 20 GM/30 ML ORAL.SOL PO PRN (09:05)
[2018-10-26] MEDS ORDERED: DEXTROSE 50% 50 ML VIAL IV PRN (09:05)
[2018-10-26] MEDS ORDERED: MAGNESIUM SULFATE 2 GM/50 ML BAG IV PRN (09:05)
[2018-10-26] MEDS ORDERED: DEXTROSE 31 GM ORAL.SUSP PO PRN (09:05)
[2018-10-26] MEDS ORDERED: POTASSIUM CHLORIDE 20 MEQ TABLET PO PRN ×2 (09:05)
[2018-10-26] MEDS ORDERED: ACETAMINOPHEN 325 MG TABLET PO PRN (09:05)
[2018-10-26] MEDS ORDERED: ONDANSETRON 4 MG/2 ML VIAL IV PRN (09:05)
[2018-10-26] MEDS ORDERED: IPRATROPIUM/ALBUTEROL 3 ML AMPUL.NEB NEB PRN (09:05)
[2018-10-26] MEDS ORDERED: ALBUTEROL SULFATE 2.5 MG/3 ML NEBULIZER NEB PRN (09:05)
[2018-10-26] MEDS: NITROGLYCERIN/D5W 25 MG/250 ML BOTTLE IV SCH (12:38)
[2018-10-26] MEDS: 0.9 % SODIUM CHLORIDE 1,000 ML IV SCH (12:38)
[2018-10-26] MEDS: POTASSIUM CHLORIDE 20 MEQ TABLET PO SCH ×2 (12:40→18:07)
[2018-10-26] MEDS ORDERED: FUROSEMIDE 40 MG/4 ML VIAL IV SCH (14:00)
[2018-10-26] MEDS ORDERED: ENOXAPARIN 40 MG/0.4 ML SYRINGE SQ SCH (14:06)
[2018-10-26] MEDS: FUROSEMIDE 40 MG/4 ML VIAL IV SCH ×2 (18:08→20:28)
[2018-10-26] MEDS ORDERED: CARVEDILOL 6.25 MG TABLET PO ONE ×2 (20:00)
[2018-10-26] MEDS ORDERED: LOSARTAN 25 MG TABLET PO SCH (21:00)
[2018-10-26] MEDS ORDERED: SIMVASTATIN 20 MG TABLET PO SCH (21:00)
[2018-10-26] MEDS ORDERED: SENNOSIDES 1 TABLET PO PRN (21:00)
[2018-10-27 05:06] LABS: ALT/SGPT 13 U/l (0-40); Albumin 3.7 gm/dL (3.2-5.2); Albumin/Globulin Ratio 1.2 (1.0-2.3); Alkaline Phosphatase 66 U/L (39-117); Bilirubin,Direct < 0.2 mg/dL (0.0-0.3); Blood Urea Nitrogen 25 mg/dl (8-23); Gamma Glutamyl Transpeptidase 46 U/L (5-36)
[2018-10-27] MEDS: 0.9 % SODIUM CHLORIDE 10 ML SYRINGE IV SCH ×5 (05:26→20:15)
[2018-10-27] MEDS: ENALAPRILAT 2.5 MG/2 ML VIAL IV PRN (07:27)
[2018-10-27] MEDS: INSULIN LISPRO 1 UNIT/0.01 ML UNIT SQ SCH ×4 (07:33→20:13)
[2018-10-27] MEDS ORDERED: CARVEDILOL 12.5 MG TABLET PO SCH ×3 (08:00→17:30)
[2018-10-27] MEDS: POTASSIUM CHLORIDE 20 MEQ TABLET PO SCH ×3 (08:16→16:58)
[2018-10-27] MEDS: cloNIDine HCL 0.1 MG TABLET PO SCH ×2 (08:18→20:13)
[2018-10-27] MEDS: GABAPENTIN 100 MG CAPSULE PO SCH ×3 (08:51→20:15)
[2018-10-27] MEDS: DOCUSATE SODIUM 100 MG CAPSULE PO SCH ×2 (08:52→20:14)
[2018-10-27] MEDS: FUROSEMIDE 40 MG/4 ML VIAL IV SCH ×2 (08:52→20:15)
[2018-10-27] MEDS: SALMETEROL XINAFOATE 50 MCG INH SCH ×2 (08:53→20:14)
[2018-10-27] MEDS ORDERED: ENOXAPARIN 40 MG/0.4 ML SYRINGE SQ SCH (09:00)
[2018-10-27] MEDS ORDERED: FLUTICASONE PROPIONATE SPRAY.NAS NS SCH (09:00)
[2018-10-27] MEDS ORDERED: Fluticasone Propionate [Flovent Diskus] 50 MCG INH SCH (09:00)
[2018-10-27] MEDS ORDERED: CARVEDILOL 12.5 MG TABLET PO ONE (09:00)
[2018-10-27] MEDS: NITROGLYCERIN/D5W 25 MG/250 ML BOTTLE IV SCH (09:09)
[2018-10-27] MEDS: 0.9 % SODIUM CHLORIDE 1,000 ML IV SCH (09:10)
--- NOTE | 2018-10-27 13:20 | Internal Med Progress Note ---
Medical - PN: Subj Patient information: Note initiated : 10/27/18 at 1:06 pm Service Date, if different from initiated Date: [] Patient: Cony Baig 67 y/o F admitted on 10/25/18 for Shortness of breath. Chief Complaint: [] Interval history: She has been using a hand nebulizer over the past week and her nebulizer treatments have not been improving her breathing is much as they normally do. She states about 10 days days ago developed bronchitis with shortness of breath mild cough symptoms continued about 5 days ago significantly worsen since her cough is nonproductive but she can have increasing shortness of breath. She does have swelling in her legs especially her left which is worse than usual. She says she has been taking her blood pressure medications including clonidine which he took yesterday yesterday morning. She has been using her inhalers at home but they have not been helping. She has a headache. She does have chest wall and rib pain from coughing. Denies history of heart failure. Plans to live until 89 years of age. She is found to have severely elevated blood pressure and pulmonary edema and given Lasix. Good urine output in the ED. 10/26 Feeling much better. Shortness of breath significantly improved. Does have cough which she states is dry. No other acute complaints. No overnight events. 10/27 pt seen examined, still has some sorness in chest from coughing, but overall feels better bp back up again, but improved once home meds resumed labs s table xfer to med surg status. Pertinent ROS: Denies headache, dizziness Denies chest pain, palpitations Denies cough or shortness of breath Denies abdominal pain, nausea or vomiting. - Constitutional Vitals: Vital Signs Temp Pulse Resp BP Pulse Ox 97.8 F 74 18 125/72 94 10/27/18 11:53 10/26/18 11:09 10/27/18 11:53 10/27/18 11:53 10/27/18 11:53 Period Temp Pulse Resp BP Sys/Najera Pulse Ox Last 24 Hr 96.7 F-98.3 F 98-178/69-110 92-99 Intake and Output 10/26/18 10/27/18 10/27/18 21:59 05:59 13:59 Intake Total 390 360 120 Output Total 1700 525 375 Balance -1310 -165 -255 Weight 256 lb 6.4 oz Intake & Output: Intake & Output 10/26/18 10/27/18 10/27/18 21:59 05:59 13:59 Intake Total 390 360 120 Output Total 1700 525 375 Balance -1310 -165 -255 Weight 256 lb 6.4 oz Intake: Oral 390 360 120 Output: Void Amount 1700 525 375 Other: Meal Dinner Breakfast Percent of Meal Consumed 100% 90 Feeding Ability Independent Independent Urine Appearance Clear Clear Urine Color Pale Dark Yellow Stool Size Moderate Moderate Stool Color Brown Brown Stool Consistency Soft Soft Formed # Voids 1 1 # Bowel Movements 1 1 Exam: Constitutional; Afebrile, cooperative, alert, not in distress. Respiratory system: Air Entry equal on both sides, mild basilar inspiratory crackles, no wheeze or rales CVS- Rate rhythm regular, S1,S2 heard, no gallop, no rub. Abdomen- Soft nontender abdomen, no organomegaly, no tenderness, no guarding or rigidity, [employer]- AOOx3, moving all extremities, no gross focal deficit noted. Medical - PN: Obj Da - Labs CBC & Chem 7: 10/26/18 04:00 10/27/18 03:55 Labs: Abnormal Lab Results 10/27/18 10/26/18 10/26/18 03:55 04:00 04:00 RDW Chloride 92 L Carbon Dioxide 31 H BUN 25 H Glucose 176 H 134 H POC Glucose Hemoglobin A1c 6.9 H POC WB Ioniz Calcium Phosphorus 5.0 H GGT 46 H 51 H Lactate Dehydrogenase 304 H NT-Pro-B Natriuret Pep Triglycerides 279 H 213 H 10/26/18 10/25/18 10/24/18 04:00 11:07 22:33 RDW 15.4 H Chloride Carbon Dioxide BUN Glucose 262 H POC Glucose Hemoglobin A1c POC WB Ioniz Calcium Phosphorus GGT 56 H Lactate Dehydrogenase NT-Pro-B Natriuret Pep 2887.0 H Triglycerides 10/24/18 22:33 RDW Chloride Carbon Dioxide BUN Glucose POC Glucose 166 H Hemoglobin A1c POC WB Ioniz Calcium 1.11 L Phosphorus GGT Lactate Dehydrogenase NT-Pro-B Natriuret Pep Triglycerides Meds: Medications Acetaminophen (Tylenol) 650 mg PO Q4-6HP PRN PRN Reason: PAIN/FEVER > 101 Albuterol Sulfate (Ventolin) 2.5 mg NEB Q4HP PRN PRN Reason: wheezing or cough Albuterol/Ipratropium (Duoneb) 3 ml NEB Q4HP PRN PRN Reason: Shortness Of Breath [facility] Clonidine HCl (Catapres) 0.6 mg PO BID [facility] Last Admin: 10/27/18 08:18 Dose: 0.6 mg Documented by: Dextrose (Dextrose 50%) 0 ml IV UD PRN PRN Reason: Hypoglycemia Diagnostic Test (Pha) (Accu-Chek) 1 each FS ACHS [facility] Last Admin: 10/27/18 11:51 Dose: 1 each Documented by: Docusate Sodium (Colace) 100 mg PO BID [facility] Last Admin: 10/27/18 08:52 Dose: Not Given Documented by: Enalaprilat (Vasotec) 0 mg IV Q2HP PRN PRN Reason: Hypertension Last Admin: 10/27/18 07:27 Dose: 1.25 mg Documented by: Enoxaparin Sodium (Lovenox) 40 mg SQ DAILY [facility] Last Admin: 10/27/18 08:52 Dose: 40 mg Documented by: Fluticasone Propionate (Flonase) 1 spray NS BID [facility] Last Admin: 10/27/18 08:52 Dose: Not Given Documented by: Furosemide (Lasix) 40 mg IV BID [facility] Last Admin: 10/27/18 08:52 Dose: 40 mg Documented by: Gabapentin (Neurontin) 100 mg PO TID [facility] Last Admin: 10/27/18 08:51 Dose: 100 mg Documented by: Glucose (Insta-Glucose) 15 gm PO PRN PRN PRN Reason: Hypoglycemia Potassium Chloride 40 meq/ (Dextrose) 520 mls @ 130 mls/hr IV UD PRN PRN Reason: Potassium < 3 Magnesium Sulfate (Magnesium Sulfate) 2 gm in 50 mls @ 50 mls/hr IV UD PRN PRN Reason: Magnesium </= 1.6 Nitroglycerin/Dextrose (Nitroglycerin/D5w) 25 mg in 250 mls @ 3 mls/hr IV .Q24H [facility]; Protocol Last Admin: 10/27/18 09:09 Dose: Not Given Documented by: Sodium Chloride (Sodium Chloride 0.9%) 1,000 mls @ 20 mls/hr IV .Q24H [facility] Last Admin: 04/20/19 09:10 Dose: Not Given Documented by: Insulin Human Lispro (Humalog) 0 unit SQ ACHS [facility]; Protocol Last Admin: 10/27/18 11:52 Dose: Not Given Documented by: Lactulose (Cephulac) 10 gm PO DAILYP PRN PRN Reason: Constipation Losartan Potassium (Cozaar) 100 mg PO HS [facility] Metoclopramide HCl (Reglan) 10 mg IV Q6HP PRN PRN Reason: Nausea And Vomiting Ondansetron HCl (Zofran) 4 mg IV Q4HP PRN PRN Reason: Nausea And Vomiting Salmeterol Xinafoate [Serevent] 50 Mcg Inhaler 1 dose INH BID [facility] Last Admin: 10/27/18 08:53 Dose: Not Given Documented by: Polyethylene Glycol (Miralax) 17 gm PO DAILYP PRN PRN Reason: Constipation Potassium Chloride (Kdur) 40 meq PO UD PRN PRN Reason: Potssium is 3-3.5 Potassium Chloride (Kdur) 40 meq PO UD PRN PRN Reason: Potassium < 3 Potassium Chloride (Kdur) 20 meq PO TIDCC [facility] Last Admin: 10/27/18 11:53 Dose: 20 meq Documented by: Senna (Senokot) 2 tab PO HSP PRN PRN Reason: Constipation Simvastatin (Zocor) 20 mg PO HS [facility] Last Admin: 10/26/18 21:17 Dose: 20 mg Documented by: Sodium Chloride (Saline Flush) 10 ml IV Q8 [facility] Last Admin: 10/27/18 08:52 Dose: 10 ml Documented by: Medical - PN: A/P - Time Spent With Patient Total time spent is greater than 50% in coordination of care (as documented) at patient's floor/unit and/or counseling patient: - Narrative A/P Narrative: A: *Acute decompensated Diastolic CHF w/pulmonary edema: -echo with normal EF, Diastolic (?grade III) dysfxn - *Acute hypoxic respiratory failure: 2/2 above -down to 1LNC *Hypertensive emergency: -nitro gtt off o/n *Diabetes w/neuropathy: on metformin at home *CAD/PAD: *Chronic bilateral lower extremity wounds: Follows with wound care *HTN/HLD: on losartan/coreg at home/clonidine *h/o asthma: *Morbid obesity * P: -IV Lasix, hctz continue -resume blood pressure medications at home dose today and monitor bp response -Monitor urine output weights and I's and O's -Continue home inhalers -SSI -PT/OT -ppx: Lovenox
[2018-10-27] MEDS ORDERED: ONDANSETRON 4 MG/2 ML VIAL IV PRN (14:11)
[2018-10-27] MEDS ORDERED: MAGNESIUM SULFATE 2 GM/50 ML BAG IV PRN (14:11)
[2018-10-27] MEDS ORDERED: 0.9 % SODIUM CHLORIDE 1,000 ML IV SCH (14:11)
[2018-10-27] MEDS ORDERED: POLYETHYLENE GLYCOL 3350 17 GM PACKET PO PRN (14:11)
[2018-10-27] MEDS ORDERED: POTASSIUM CHLORIDE 20 MEQ TABLET PO PRN ×2 (14:11)
[2018-10-27] MEDS ORDERED: DEXTROSE 50% 50 ML VIAL IV PRN (14:11)
[2018-10-27] MEDS ORDERED: LACTULOSE 20 GM/30 ML ORAL.SOL PO PRN (14:11)
[2018-10-27] MEDS ORDERED: DEXTROSE 31 GM ORAL.SUSP PO PRN (14:11)
[2018-10-27] MEDS ORDERED: ENALAPRILAT 2.5 MG/2 ML VIAL IV PRN (14:11)
[2018-10-27] MEDS ORDERED: ACETAMINOPHEN 325 MG TABLET PO PRN (14:11)
[2018-10-27] MEDS ORDERED: POTASSIUM CHLORIDE 40 MEQ in DEXTROSE 5% IN WATER 500 ML IV PRN (14:11)
[2018-10-27] MEDS ORDERED: METOCLOPRAMIDE 10 MG/2 ML VIAL IV PRN (14:11)
[2018-10-27] MEDS ORDERED: ALBUTEROL SULFATE 2.5 MG/3 ML NEBULIZER NEB PRN (14:11)
[2018-10-27] MEDS ORDERED: NITROGLYCERIN/D5W 25 MG/250 ML BOTTLE IV SCH (14:11)
[2018-10-27] MEDS ORDERED: IPRATROPIUM/ALBUTEROL 3 ML AMPUL.NEB NEB PRN (14:11)
[2018-10-27] MEDS: CARVEDILOL 12.5 MG TABLET PO SCH (16:58)
--- NOTE | 2018-10-27 19:22 | General Surgery Consult Note ---
History of Present Illness Patient information: Note initiated : 10/27/18 at 7:15 pm Service Date, if different from initiated Date: [] Patient: Cony Baig 67 y/o F admitted on 10/25/18 for Shortness of breath. Chief Complaint: [] Consult date: 10/26/18 Requesting physician: Carlos Manuel Frank (skin wounds Right leg. VLU) History of present illness: I saw this patient in room 125 this evening. She was transferred out out of ICU to [facility] floor. She is an established patient at wound care center. H/O recurring skin structure infections, ulceration and abrasions in past. She had a VLU right lower lateral leg area, which had healed and recurred before. Her current hospitalization was for acute exacerbation of non productive , mucoid cough and subsequent acute CHF without WI. She has had CAD and PAD in past. She is a non smoker and non alcoholic morbid obese lady. She has h/o asthma, but current admission was for SOB upon acute CHF. Medications and Allergies Home Medications Medication Instructions Recorded Confirmed Type Albuterol Sulfate [Proair Hfa] 1 puff IH Q4HP PRN 04/28/16 10/26/18 History Carvedilol [Coreg] 25 mg PO BID 04/28/16 10/25/18 History Furosemide [Lasix] 40 mg PO BID 04/28/16 10/25/18 History Potassium Chloride [Kdur] 30 meq PO BIDCC 04/28/16 10/26/18 History Salmeterol Xinafoate [Serevent] 1 puff IH BID 04/28/16 10/26/18 History cloNIDine HCL [Catapres] 0.6 mg PO BID 04/28/16 10/25/18 History Ergocalciferol (Vitamin D2) 50,000 unit PO WEEKLY 05/07/16 10/25/18 History [Vitamin D2] Gabapentin [Neurontin] 100 mg PO TID #90 cap 07/04/17 10/25/18 Rx Albuterol Sulfate [Ventolin] 2.5 mg NEB Q4HP PRN #120 ampul.neb 02/23/18 10/25/18 Rx Losartan [Cozaar] 100 mg PO HS 10/25/18 10/26/18 History Lovastatin 40 mg PO HS 10/26/18 10/26/18 History metFORMIN HCL [Metformin HCl ER] 1,000 mg PO DAILY 10/26/18 10/26/18 History Diclofenac/Me-Salic/Menth/Camp 1 each TP 10/27/18 History [Inflamma-K Kit] Fluticasone Propionate [Flonase] 1 spray NS BID 10/27/18 10/27/18 History Allergies Allergy/AdvReac Type Severity Reaction Status Date / Time lidocaine AdvReac Intermediate Muscle Pain Verified 09/27/18 14:15 morphine AdvReac Intermediate Vomiting Verified 09/27/18 14:15 wool AdvReac Intermediate Rash Verified 09/27/18 14:15 tramadol AdvReac Mild Vomiting Verified 09/27/18 14:15 Exam Temp Pulse Resp BP Pulse Ox 98.1 F 89 20 149/90 93 10/27/18 18:38 10/27/18 18:38 10/27/18 18:38 10/27/18 18:38 10/27/18 18:38 - General physical appearance no distress (VSS, O2 Sats 90 % RA. Using Incentive spirometer upto 1750. Transferred out of ICU to floor today. ), obese - Eyes PERRL, normal ocular movement - ENT normal pinna, normal nares, normal mucosa - Head Head exam IM: Present: atraumatic, normal inspection, normocephalic - Neck no masses, trachea midline, no venous distension - Cardiovascular Cardiovascular exam IM: Present: irregular rhythm, systolic murmur - Respiratory normal expansion, other (Improving AE over both lung manriquez. Decreased air entry over bases. ) - Abdomen Abdomen: Present: soft, non tender, bowel sounds - Integumentary Present: no rash, other (Mild dermatitis leg and VLU site Right lower lateral leg is covered with epithelium. ) - Neurologic Present: normal coordination, normal sensation, other (LUCID, A / O. HMFs normal. NO NV deficits. ) - Musculoskeletal Present: normal gait - Psychiatric Present: oriented to time, oriented to person, oriented to place, speech is normal Results - Labs 10/26/18 04:00 10/27/18 03:55 Abnormal lab results 10/27/18 Range/Units 03:55 Chloride 92 L (96-108) mmol/L Carbon Dioxide 31 H (22-30) mmol/L BUN 25 H (8-23) mg/dl Glucose 176 H (70-105) mg/dL Phosphorus 5.0 H (2.7-4.5) mg/dL GGT 46 H (5-36) U/L Lactate Dehydrogenase 304 H (94-250) U/L Triglycerides 279 H (<150) mg/dl Diabetes panel 10/27/18 Range/Units 03:55 Sodium 138 (133-145) mmol/L Potassium 4.0 (3.3-5.1) mmol/L Chloride 92 L (96-108) mmol/L Carbon Dioxide 31 H (22-30) mmol/L BUN 25 H (8-23) mg/dl Creatinine 0.9 (0.6-1.1) mg/dl Glucose 176 H (70-105) mg/dL Calcium 8.9 (8.6-10.4) mg/dl AST 17 (0-37) U/l ALT 13 (0-40) U/l Alkaline Phosphatase 66 (39-117) U/L Total Protein 6.8 (5.9-8.4) gm/dL Albumin 3.7 (3.2-5.2) gm/dL Triglycerides 279 H (<150) mg/dl Calcium panel 10/27/18 Range/Units 03:55 Calcium 8.9 (8.6-10.4) mg/dl Phosphorus 5.0 H (2.7-4.5) mg/dL Albumin 3.7 (3.2-5.2) gm/dL Pituitary panel 10/27/18 Range/Units 03:55 Sodium 138 (133-145) mmol/L Potassium 4.0 (3.3-5.1) mmol/L Chloride 92 L (96-108) mmol/L Carbon Dioxide 31 H (22-30) mmol/L BUN 25 H (8-23) mg/dl Creatinine 0.9 (0.6-1.1) mg/dl Glucose 176 H (70-105) mg/dL Calcium 8.9 (8.6-10.4) mg/dl Adrenal panel 10/27/18 Range/Units 03:55 Sodium 138 (133-145) mmol/L Potassium 4.0 (3.3-5.1) mmol/L Chloride 92 L (96-108) mmol/L Carbon Dioxide 31 H (22-30) mmol/L BUN 25 H (8-23) mg/dl Creatinine 0.9 (0.6-1.1) mg/dl Glucose 176 H (70-105) mg/dL Calcium 8.9 (8.6-10.4) mg/dl Total Bilirubin 0.4 (0.0-1.0) mg/dL AST 17 (0-37) U/l ALT 13 (0-40) U/l Alkaline Phosphatase 66 (39-117) U/L Total Protein 6.8 (5.9-8.4) gm/dL Albumin 3.7 (3.2-5.2) gm/dL All other labs normal. Assessment and Plan (1) Cellulitis and abscess of leg Status: Suspected Priority: Low Comment: Excellent clinical improvement with chlorhexidene washes and topical skin moisturizer applications. (2) Diabetic ankle ulcer Assessment: Daily cleansing of legs, ankles, feet and between toes with Chlorhexidine solution. Amado bandage from toes to lower legs. Plan: Upon discharge f/u at wound care center. Will see her again, if still in hospital on PRN basis. Status: Chronic Priority: Low
[2018-10-27] MEDS: FLUTICASONE PROPIONATE SPRAY.NAS NS SCH (20:15)
[2018-10-27] MEDS ORDERED: LOVASTATIN 40 MG PO SCH (21:00)
[2018-10-27] MEDS ORDERED: SENNOSIDES 1 TABLET PO PRN (21:00)
[2018-10-27] MEDS ORDERED: SIMVASTATIN 20 MG TABLET PO SCH (21:00)
[2018-10-27] MEDS ORDERED: LOSARTAN 25 MG TABLET PO SCH ×2 (21:00)
[2018-10-28 05:41] LABS: Basophils # (Auto) 0 K/mcL (0.0-0.3); Basophils % (Auto) 0.6 % (0.0-2.0); Eosinophils # (Auto) 0.4 K/mcL (0.0-0.7); Eosinophils % (Auto) 4.3 % (0.0-7.0); Granulocytes % (Auto) 48.9 % (38.0-78.0); Lymphocytes # (Auto) 3.1 K/mcL (1.5-4.8); Lymphocytes % (Auto) 36.7 % (15.5-49.0); Mean Cell Volume 90.2 fL (80.0-100.0); Mean Corpuscular HGB Conc 32.4 g/dL (31.0-36.0); Monocytes # (Auto) 0.8 K/mcL (0.1-0.9); Monocytes % (Auto) 9.5 % (1.0-12.0); Platelet Count 300 K/mcL (140-440); RBC 4.64 M/mcL (4.00-5.20); Red Cell Distribution Width 15.3 % (11.5-14.5)
[2018-10-28] MEDS: 0.9 % SODIUM CHLORIDE 10 ML SYRINGE IV SCH (05:41)
[2018-10-28 06:01] LABS: ALT/SGPT 10 U/l (0-40); Albumin 3.7 gm/dL (3.2-5.2); Albumin/Globulin Ratio 1.2 (1.0-2.3); Alkaline Phosphatase 68 U/L (39-117); Bilirubin,Direct < 0.2 mg/dL (0.0-0.3); Blood Urea Nitrogen 24 mg/dl (8-23); Gamma Glutamyl Transpeptidase 44 U/L (5-36); Uric Acid 7.5 mg/dL (2.5-8.0)
[2018-10-28] MEDS: CARVEDILOL 12.5 MG TABLET PO SCH (07:34)
[2018-10-28] MEDS: POTASSIUM CHLORIDE 20 MEQ TABLET PO SCH ×2 (07:36→11:40)
[2018-10-28] MEDS: INSULIN LISPRO 1 UNIT/0.01 ML UNIT SQ SCH ×2 (07:59→11:39)
[2018-10-28] MEDS ORDERED: ENOXAPARIN 40 MG/0.4 ML SYRINGE SQ SCH (09:00)
[2018-10-28] MEDS: FUROSEMIDE 40 MG/4 ML VIAL IV SCH (10:07)
[2018-10-28] MEDS: DOCUSATE SODIUM 100 MG CAPSULE PO SCH (10:08)
[2018-10-28] MEDS: cloNIDine HCL 0.1 MG TABLET PO SCH (10:08)
[2018-10-28] MEDS: SALMETEROL XINAFOATE 50 MCG INH SCH (10:09)
[2018-10-28] MEDS: GABAPENTIN 100 MG CAPSULE PO SCH (10:09)
[2018-10-28] MEDS: FLUTICASONE PROPIONATE SPRAY.NAS NS SCH (10:19)
--- NOTE | 2018-10-28 12:48 | Discharge Summary ---
Medical - DS: Prov Patient information: Note initiated : 10/28/18 at 12:44 pm Service Date, if different from initiated Date: [] Patient: Cony Baig 67 y/o F admitted on 10/25/18 for Shortness of breath. Chief Complaint: [] Date of admission: 10/25/18 02:27 Discharge date: 10/28/18 Primary care physician: ALESIA Rodriguez Consults: 10/26/18 08:41 Consult to Physician [CONS] Routine Comment: lower extremity wounds Consulting Provider: Rnoal Oseguera Reason For Exam: Physician to Consult Discharging clinician: Hernán Dye Medical - DS: Meds - Discharge Medications Prescriptions: Furosemide [Lasix] 40 mg PO BID #60 tab Active and Home Medications: Home Medications Albuterol Sulfate [Proair Hfa] 1 puff IH Q4HP PRN 04/28/16 [History Confirmed 10/26/18 Last Taken 10/24/18 08:00] Carvedilol [Coreg] 25 mg PO BID 04/28/16 [History Confirmed 10/25/18 Last Taken 10/24/18 08:00] Furosemide [Lasix] 40 mg PO BID 04/28/16 [History Confirmed 10/25/18 Last Taken 10/23/18 18:00] Potassium Chloride [Kdur] 30 meq PO BIDCC 04/28/16 [History Confirmed 10/26/18 Last Taken 10/23/18 18:00] Salmeterol Xinafoate [Serevent] 1 puff IH BID 04/28/16 [History Confirmed 10/26/18 Last Taken 10/24/18 08:00] cloNIDine HCL [Catapres] 0.6 mg PO BID 04/28/16 [History Confirmed 10/25/18 Last Taken 10/24/18 08:00] Ergocalciferol (Vitamin D2) [Vitamin D2] 50,000 unit PO WEEKLY 05/07/16 [History Confirmed 10/25/18 Last Taken 10/15/18 08:00] Gabapentin [Neurontin] 100 mg PO TID #90 cap 07/04/17 [Rx Confirmed 10/25/18 Last Taken 10/24/18 08:00] Albuterol Sulfate [Ventolin] 2.5 mg NEB Q4HP PRN #120 ampul.neb 02/23/18 [Rx Confirmed 10/25/18 Last Taken 10/24/18 08:00] Losartan [Cozaar] 100 mg PO HS 10/25/18 [History Confirmed 10/26/18 Last Taken 10/23/18 18:00] Lovastatin 40 mg PO HS 10/26/18 [History Confirmed 10/26/18 Last Taken 10/24/18 08:00] metFORMIN HCL [Metformin HCl ER] 1,000 mg PO DAILY 10/26/18 [History Confirmed 10/26/18 Last Taken 10/24/18 08:00] Diclofenac/Me-Salic/Menth/Camp [Inflamma-K Kit] 1 each TP 10/27/18 [History Last Taken Unknown] Fluticasone Propionate [Flonase] 1 spray NS BID 10/27/18 [History Confirmed 10/27/18 Last Taken Unknown] Medical - DS: Hosp Hospital course: Ms Presley, a 67 yr female presented to the ER with complaints of shortness of breath. She has been using a hand nebulizer over the past week and her nebulizer treatments have not been improving her breathing is much as they normally do. She states about 10 days days ago developed bronchitis with shortness of breath mild cough symptoms continued about 5 days ago significantly worsen since her cough is nonproductive but she can have increasing shortness of breath. She does have swelling in her legs especially her left which is worse than usual. She says she has been taking her blood pressure medications including clonidine which he took yesterday yesterday morning. She has been using her inhalers at home but they have not been helping. She has a headache. She does have chest wall and rib pain from coughing. Denies history of heart failure. Plans to live until 89 years of age. She is found to have severely elevated blood pressure and pulmonary edema and given Lasix. Good urine output in the ED. 10/26 Feeling much better. Shortness of breath significantly improved. Does have cough which she states is dry. No other acute complaints. No overnight events. 10/27 pt seen examined, still has some sorness in chest from coughing, but overall feels better bp back up again, but improved once home meds resumed labs s table xfer to med surg status. 10/28 patient seen and examined no acute overnight events, she does not need any oxygen, feels back to baseline. Blood pressure is stable. The patient reported that she was unable to get her Lasix prescription filled by her primary care provider, and she was out of the water pill for over 2 weeks which most likely contributed her to come to the emergency room She will be discharged on all her routine home medications, I am sending her back on oral furosemide 40 mg twice a day. I am not making any changes to her chronic home medication list In Summary Patient admitted ot the hospital with Acute decompensated Diastolic CHF w/pulmonary edema, echo with normal EF, Diastolic (?grade III) dysfxn Advise good blood pressure control, resume furosemide 40mg bid, Outpatient follow up with PCP - Discharge diagnosis: Diastolic heart failure - Time Spent with Patient Total time spent providing and/or coordinating discharge services: Less than 30 minutes Medical - DS: Exam - Constitutional Vitals: Vital Signs Temp Pulse Resp BP BP BP Pulse Ox 10/28/18 07:00 97.3 F 80 20 167/96 93 10/28/18 03:00 97.8 F 74 18 154/88 91 10/27/18 23:00 98.1 F 75 20 118/63 90 10/27/18 18:38 98.1 F 89 20 149/90 93 10/27/18 14:58 98.2 F 18 114/69 96 Intake and Output 10/27/18 10/28/18 10/28/18 21:59 05:59 13:59 Intake Total 240 360 Output Total 625 1050 1100 Balance -385 -355 -1100 Intake: Oral 240 360 Output: Void Amount 625 1050 1100 Other: Meal Dinner Percent of Meal Consumed 100% Feeding Ability Independent Urine Appearance Clear Clear Urine Color Straw Pale Urine Odor Normal Normal Stool Size Large Stool Consistency Soft # Voids 1 # Bowel Movements 1 1 Weight 253 lb 8 oz Additional comments: Constitutional; Afebrile, cooperative, alert, not in distress. Respiratory system: Air Entry equal on both sides, No crackles or wheezing, no rhonchi. CVS- Rate rhythm regular, S1,S2 heard, no gallop, no rub. Abdomen- Soft nontender abdomen, no organomegaly, no tenderness, no guarding or rigidity, [employer]- AOOx3, moving all extremities, no gross focal deficit noted. Medical - DS: Data Labs on day of discharge: Labs from last 24 hours 10/28/18 10/28/18 05:00 05:00 WBC 8.3 RBC 4.64 Hgb 13.5 Hct 41.9 MCV 90.2 MCH 29.2 MCHC 32.4 RDW 15.3 H Plt Count 300 MPV 7.0 L Gran % 48.9 Lymph % (Auto) 36.7 [place] % (Auto) 9.5 Eos % (Auto) 4.3 Baso % (Auto) 0.6 Gran # 4.1 Lymph # (Auto) 3.1 [place] # (Auto) 0.8 Eos # (Auto) 0.4 Baso # (Auto) 0 Sodium 137 Potassium 4.0 Chloride 95 L Carbon Dioxide 31 H Anion Gap 11.0 BUN 24 H Creatinine 0.8 GFR Calculation 77 Glucose 141 H Uric Acid 7.5 Calcium 9.0 Phosphorus 4.6 H Magnesium 2.3 Total Bilirubin 0.4 Direct Bilirubin < 0.2 GGT 44 H AST 8 ALT 10 Alkaline Phosphatase 68 Lactate Dehydrogenase 176 Total Protein 6.8 Albumin 3.7 Globulin 3.1 Albumin/Globulin Ratio 1.2 Triglycerides 299 H Preliminary micro results at discharge 10/24/18 11:07 Blood Culture - Preliminary Blood 10/24/18 00:00 Blood Culture - Preliminary Blood Medical - DS: A/P - Patient/Caregiver Discharge Instructions Activity: increase activity as tolerated Diet: Low Sodium (2gm), Cardiac Additional Instructions: FOllow up with PCP in 1 week Make sure you take all your medications prescribed by your regular doctor, make sure your PCP checks your kidney function in 1 week at your next appointment. I have resumed your water pill Follow up with Dr Singh as scheduled Go to the ER for worsening symptoms, chest pain, shortness of breath or any other acute concern. - Follow up Plan Follow up with: Roxana Oliveira ARNP [Primary Care Provider] - Disposition: Home, Self-Care Prognosis: Fair Rehab Potential: Fair I certify that the patient requires SNF services: No Overall status at discharge: patient is progressing back to baseline
== END 2018-10-28 14:10 | disposition home or self-care (01) | DRG 291 ==
LOC: ED 21:05 → ICU 10-25 02:25 → MEDSUR 10-27 15:15
PROVIDERS: ADMIT Internal Medicine; ATTEND Internal Medicine

== ENCOUNTER 2020-09-02 10:49 | Inpatient (IN) ==
[2020-09-02] MEDS ORDERED: methylPREDNISolone SOD SUCC 125 MG/2 ML VIAL IV ONE (11:01)
[2020-09-02] MEDS ORDERED: ALBUTEROL SULFATE 5 MG/ML NEB SOLUTION BOTTLE NEB ONE (11:01)
[2020-09-02] MEDS ORDERED: predniSONE 20 MG TABLET PO ONE (11:11)
--- NOTE | 2020-09-02 11:14 | Emergency Department Note ---
SOB HPI General Chief Complaint: Shortness of Breath/Dyspnea Stated Complaint: Shortness of Breath Time Seen by Provider: 09/02/20 10:56 Source: patient Mode of arrival: ambulatory Limitations: no limitations History of Present Illness HPI Narrative: Narrative: The patient presents with progressively worsening dyspnea over the last 4 to 5 days. She is being evaluated by her primary doctor for home oxygen and repo rtedly they will have that set up today. Her doctor sent her in here for a reevaluation according to the patient. She says that her cough is actually improved. She has had some mild chest discomfort, nonpleuritic, for the last 4 days. She denies increase in swelling of her legs. She denies calf pain. She denies any fever. She denies orthopnea. She did do an albuterol treatment prior to coming to the ED and said that did help. Related Data Home Medications Medication Instructions Recorded Confirmed albuterol sulfate 1 puff IH Q4HP PRN 04/28/16 01/17/20 clonidine HCl 0.3 mg PO BID 04/28/16 01/17/20 losartan 25 mg tablet 100 mg PO QAM tab 07/25/19 01/17/20 lovastatin 40 mg tablet 80 mg PO QHS tab 07/25/19 01/17/20 potassium chloride 10 mEq 40 meq PO .4XW tab 07/25/19 01/17/20 tablet,extended release carvedilol 25 mg tablet 25 mg PO BID tab 12/26/19 01/17/20 cholecalciferol (vitamin D3) 50 50 mcg PO QDAY 12/26/19 01/17/20 mcg (2,000 unit) capsule heal and sooth 1 tab PO DAILY 12/26/19 01/17/20 vitamin E 200 unit capsule 800 unit PO QDAY 12/26/19 01/17/20 furosemide 40 mg PO DAILY 02/26/20 albuterol sulfate [Ventolin HFA] 1 inh INHALATION QIDP PRN 09/02/20 09/02/20 salmeterol [Serevent Diskus] 1 inh INHALATION BID 09/02/20 09/02/20 Previous Rx's Medication Instructions Recorded gabapentin 100 mg PO TID #90 cap 07/04/17 albuterol sulfate 2.5 mg NEB Q4HP PRN #120 ampul.neb 02/23/18 oxycodone 2.5 mg PO Q4H PRN #12 tab 01/17/20 Allergies Allergy/AdvReac Type Severity Reaction Status Date / Time lidocaine AdvReac Intermediate Muscle Pain Verified 12/26/19 15:27 morphine AdvReac Intermediate Vomiting Verified 12/26/19 15:27 wool AdvReac Intermediate Rash Verified 12/26/19 15:27 adhesive tape AdvReac Mild Rash Verified 12/26/19 15:27 tramadol AdvReac Mild Vomiting Verified 12/26/19 15:27 Review of Systems ROS ROS Narrative: Narrative: All systems ED: reviewed and negative except as stated. [facility] Narrative Patient History Narrative: Narrative: Medical/Surgical/Family History All Active Problems (Updated 09/02/20 @ 16:20 by Hector Reid MD) Acute bilateral thoracic back pain (Acute) Contusion of back wall of thorax (Acute) Infected wound (Acute) Elevated lactic acid level (Acute) Non-compliance (Acute) Edema of both lower extremities (Acute) Acute exacerbation of CHF (congestive heart failure) (Acute) Acute exacerbation of chronic obstructive pulmonary disease (Acute) Hypoxia (Acute) Poor sleep hygiene (Chronic) Hypertension (Chronic) Nocturnal hypoxemia (Chronic) Pulmonary hypertension (Chronic) Dyspnea (Chronic) Bereavement (Chronic) Allergic rhinitis (Chronic) Foot pain (Chronic) Arthritis of hand (Chronic) Tenosynovitis of wrist (Chronic) Hypokalemia (Chronic) CKD (chronic kidney disease), stage III (Chronic) Obesity (Chronic) Urinary incontinence, mixed (Chronic) Open wound of lower limb (Chronic) Microalbuminuric diabetic nephropathy (Chronic) Peripheral venous insufficiency (Chronic) Ganglion of wrist (Chronic) Fecal occult blood test positive (Chronic) Hypertriglyceridemia (Chronic) CHF (congestive heart failure) (Chronic) Diastolic heart failure (Chronic) Morbid obesity (Chronic) Ulceration (Chronic) Pain in left leg (Chronic) Weakness (Chronic) Abnormal gait (Chronic) Calluse (Chronic) Urinary incontinence (Chronic) Intermittent claudication (Chronic) Edema, lower extremity (Chronic) Loss of taste (Chronic) Fatigue (Chronic) Anemia (Chronic) Osteoarthritis (Chronic) PVD (peripheral vascular disease) (Chronic) Hyperlipidemia (Chronic) DM II (diabetes mellitus, type II), controlled (Chronic) COPD (chronic obstructive pulmonary disease) (Chronic) Arthritis (Chronic) Allergic bronchitis (Chronic) SOB (shortness of breath) (Chronic) Cellulitis (Chronic) Edema extremities (Chronic) Diabetes (Chronic) Chronic hyperkalemia (Chronic) Venous stasis ulcer of both lower extremities without varicose veins (Chronic) Cellulitis and abscess of leg (Chronic) Diabetic ankle ulcer (Chronic) Asthma with exacerbation (Chronic) Dermatitis fungal (Chronic) CHF (congestive heart failure) (Chronic) Medical History (Updated 09/02/20 @ 16:20 by Hector Reid MD) Abnormal gait Allergic bronchitis Allergic rhinitis Anemia Arthritis Arthritis of hand Bereavement Calluse Cellulitis Patient already started on IV antibiotics Cellulitis and abscess of leg Excellent clinical improvement with chlorhexidene washes and topical skin m oisturizer applications. CHF (congestive heart failure) Chronic hyperkalemia CKD (chronic kidney disease), stage III COPD (chronic obstructive pulmonary disease) Diabetes Diabetic ankle ulcer Diastolic heart failure DM II (diabetes mellitus, type II), controlled Dyspnea Edema extremities Will treat with spiral compression bandages and elevation of legs on pillows. Edema, lower extremity Fatigue Fecal occult blood test positive Foot pain Ganglion of wrist Hyperlipidemia Hypertriglyceridemia Hypokalemia Intermittent claudication Loss of taste Microalbuminuric diabetic nephropathy Morbid obesity Nocturnal hypoxemia Obesity Open wound of lower limb Osteoarthritis Knee Hip Pain in left leg Peripheral venous insufficiency Poor sleep hygiene PVD (peripheral vascular disease) SOB (shortness of breath) Tenosynovitis of wrist Ulceration Bilateral Legs Urinary incontinence Urinary incontinence, mixed Venous stasis ulcer of both lower extremities without varicose veins Weakness Surgical History H/O skin graft left leg History of breast biopsy History of foot surgery History of hysterectomy History of rotator cuff surgery Family History Father Lung cancer Jaw cancer Diabetes Grandmother NH (myocardial infarction) Paternal HTN (hypertension) Paternal Family/Other Alzheimer's dementia Paternal Aunt Social History Smoking Status: Never smoker Alcohol Intake Frequency: does not drink Substance Use: does not use Exam Narrative Narrative: Narrative: General Limitations: no limitations General appearance: Present alert, in no apparent distress and other (The patient is able to speak in multiple word sentences) Head Head: Present atraumatic and normal inspection Eye Eye: Present normal appearance Neck Neck: Present normal inspection, full ROM and trachea midline Chest Chest: Present normal inspection and symmetric chest wall rise Respiratory Respiratory: Present wheezes and decreased breath sounds; Absent normal lung sounds bilaterally, respiratory distress and accessory muscle use Cardiovascular Cardiovascular: Present regular rate and normal rhythm Adbominal Abdominal: Present soft; Absent distention and tenderness Extremities Extremities: Present normal inspection, full ROM and pedal edema; Absent calf tenderness Back Back: Present full ROM Neurological Neurological: Present alert and oriented X3 Psychiatric Psychiatric: Present normal affect and normal mood Skin Skin: Present warm (WNL) and dry Course Reevaluation(s) Reevaluation #1: The patient is refusing to allow nursing staff to place an IV. We will change Solu-Medrol to prednisone. Time: 11:14 Reevaluation #2: The patient's work-up is reviewed. It appears that this may be a combination of her chronic conditions, COPD and CHF. The patient is still refusing an IV. We will give the furosemide orally. Patient is adamant that she wants to go home. Plan to check a room air pulse ox. Patient also states that she does have home oxygen coming today. If room air pulse ox is less than 90%, then we will need to verify this before discharge. Time: 13:38 Reevaluation #3: I spoke to the hospitalist, Dr. Grissom. He agreed to evaluate for local admission Time: 16:18 Vital Signs Vital signs: Vital Signs Temperature 97.7 F 09/02/20 10:50 Pulse Rate 86 09/02/20 10:50 Respiratory Rate 30 H 09/02/20 10:50 Blood Pressure 192/126 09/02/20 10:50 Pulse Oximetry (%) 93 09/02/20 10:50 Temperature 97.7 F 09/02/20 10:50 Pulse Rate 85 09/02/20 15:46 Respiratory Rate 27 H 09/02/20 14:24 Blood Pressure 192/107 09/02/20 15:46 Pulse Oximetry (%) 94 09/02/20 15:46 [facility] MDM Narrative Medical decision making narrative: Narrative: The patient presents with several days of dyspnea. She is being set up for home oxygen. COPD exacerbation is most likely given exam findings. CHF exacerbation is considered. Other cardiac etiologies such as NH is considered. I have no concern for pulmonary embolism given the fact that other etiologies are significantly higher on the differential. Pneumonia is considered but thought to be less likely given the fact that her cough is improving. Plan to get a chest x-ray and appropriate labs. We will give a albuterol neb and Solu-Medrol. Lab Data Lab results reviewed: Yes I reviewed the patient's lab results. Result diagrams: 09/02/20 12:13 09/02/20 12:13 Labs: Lab Results 09/02/20 09/02/20 09/02/20 Range/Units 12:13 12:13 12:13 WBC 8.0 (4.5-11.0) K/mcL RBC 4.23 (4.00-5.20) M/mcL Hgb 12.1 (12.0-15.0) g/dL Hct 38.7 (36.0-48.0) % MCV 91.5 (80.0-100.0) fL MCH 28.6 (26.0-34.0) pg MCHC 31.3 (31.0-36.0) g/dL RDW 18.6 H (11.5-14.5) % Plt Count 213 (140-440) K/mcL MPV 9.9 (7.4-10.4) fL Neut % (Auto) 53.5 (38.0-78.0) % Lymph % (Auto) 37.1 (15.0-49.0) % [place] % (Auto) 5.3 (1.0-12.0) % Eos % (Auto) 3.5 (0.0-7.0) % Baso % (Auto) 0.6 (0.0-2.0) % Lymph # (Auto) 2.98 (1.50-4.80) K/mcL [place] # (Auto) 0.43 (0.10-0.90) K/mcL Eos # (Auto) 0.28 (0.00-0.70) K/mcL Baso # (Auto) 0.05 (0.00-0.20) K/mcL Absolute Neutrophils 4.30 (1.80-8.00) K/mcL Sodium 139 (133-145) mmol/L Potassium 4.2 (3.3-5.1) mmol/L Chloride 104 (96-108) mmol/L Carbon Dioxide 26 (22-30) mmol/L Anion Gap 9.0 (8.0-16.0) BUN 10 (8-23) mg/dL Creatinine 0.8 (0.6-1.1) mg/dL GFR Calculation 76 Glucose 148 H (70-105) mg/dL Calcium 9.2 (8.6-10.4) mg/dL Total Bilirubin 0.5 (0.1-1.0) mg/dL AST 9 (<32) U/L ALT 7 (<40) U/L Alkaline Phosphatase 55 (39-117) U/L Troponin T 0.01 (<0.03) ng/mL NT-Pro-B Natriuret Pep 8291.0 H (<125.0) pg/mL Total Protein 6.1 (5.9-8.4) gm/dL Albumin 3.4 (3.2-5.2) gm/dL Globulin 2.7 (2.2-3.7) gm/dL Albumin/Globulin Ratio 1.3 (1.0-2.3) ED POC Tests ED POC Tests: [place] - SARS Antigen Negative Radiology Data Radiology results reviewed: Yes I reviewed the patient's radiology results. EKG Data EKG #1: EKG attestation: Yes I reviewed and interpreted this EKG. and Yes There are no EKG findings of acute coronary syndrome EKG results narrative: Sinus, rate 76, normal axis, QTC 504, MO 180, left bundle branch that is a probably discordant. Note that left bundle is appreciated on an ECG from 2019 CC TIME Critical Care Time Critical Care Time: Yes Total Critical Care Time: 45 Discharge Plan Patient/Caregiver Discharge Instructions Pt seen by [employer] REPAIRER/PA only: No Clinical Impression: Acute exacerbation of chronic obstructive pulmonary disease, Hypoxia Dyspnea Qualifiers: Dyspnea type: shortness of breath Qualified Code(s): R06.02 - Shortness of breath Acute exacerbation of CHF (congestive heart failure) Qualifiers: Heart failure type: diastolic Qualified Code(s): I50.33 - Acute on chronic diastolic (congestive) heart failure Patient Disposition: Xfer As Inpt ([facility]) Prescriptions: No Action furosemide 40 MG tablet 40 mg PO DAILY RF: 0 cholecalciferol (vitamin D3) 50 mcg (2,000 unit) capsule 50 mcg PO QDAY RF: 0 vitamin E 200 unit capsule 800 unit PO QDAY RF: 0 heal and sooth 1 tab PO DAILY RF: 0 carvedilol 25 mg tablet 25 mg PO BID RF: 0 clonidine HCl 0.3 MG tablet 0.3 mg PO BID RF: 0 albuterol sulfate 8.5 GM HFA aerosol inhaler 1 puff IH Q4HP PRN (Reason: Shortness Of Breath) RF: 0 potassium chloride 10 mEq tablet extended release 40 meq PO .4XW RF: 0 gabapentin 100 MG capsule 100 mg PO TID Qty: 90 RF: 0 albuterol sulfate 2.5 MG/3 ML solution for nebulization 2.5 mg NEB Q4HP PRN (Reason: wheezing or cough) Qty: 120 RF: 0 losartan 25 mg tablet 100 mg PO QAM RF: 0 lovastatin 40 mg tablet 80 mg PO DAILY RF: 0 oxycodone 5 mg tablet 2.5 mg PO Q4H PRN (Reason: pain) Qty: 12 RF: 0 Serevent Diskus 50 mcg/dose blister with device 1 inh INHALATION BID RF: 0 albuterol sulfate [Ventolin HFA] 90 mcg/actuation HFA aerosol inhaler 1 inh INHALATION QIDP PRN (Reason: Shortness Of Breath) RF: 0
[2020-09-02 13:00] LABS: Basophils # (Auto) 0.05 K/mcL (0.00-0.20); Basophils % (Auto) 0.6 % (0.0-2.0); Eosinophils # (Auto) 0.28 K/mcL (0.00-0.70); Eosinophils % (Auto) 3.5 % (0.0-7.0); Hematocrit 38.7 % (36.0-48.0); Hemoglobin 12.1 g/dL (12.0-15.0); Lymphocytes # (Auto) 2.98 K/mcL (1.50-4.80); Lymphocytes % (Auto) 37.1 % (15.0-49.0); Mean Cell Volume 91.5 fL (80.0-100.0); Mean Corpuscular HGB Conc 31.3 g/dL (31.0-36.0); Mean Platelet Volume 9.9 fL (7.4-10.4); Monocytes # (Auto) 0.43 K/mcL (0.10-0.90); Monocytes % (Auto) 5.3 % (1.0-12.0); Neutrophils % (Auto) 53.5 % (38.0-78.0); Platelet Count 213 K/mcL (140-440); RBC 4.23 M/mcL (4.00-5.20); Red Cell Distribution Width 18.6 % (11.5-14.5)
--- NOTE | 2020-09-02 13:08 | XRay Report ---
CLINICAL INFORMATION: dyspnea COMPARISON: 07/18/2020 FINDINGS: Moderate cardiomegaly has increased. Mediastinum is unremarkable. Pulmonary vessels are mildly distended and there is mild interstitial edema. Mild airspace disease in both lower lobes either represents atelectasis or developing infiltrate. Small left pleural effusion noted. IMPRESSION: Mild CHF Mild bibasilar airspace disease - most likely atelectasis. Developing infiltrates are not excluded. Interpreted and Authenticated by: Rhys Wong 09/02/20
[2020-09-02] MEDS ORDERED: FUROSEMIDE 40 MG/4 ML VIAL IV ONE (13:11)
[2020-09-02] MEDS ORDERED: FUROSEMIDE 80 MG TABLET PO ONE (13:19)
[2020-09-02 13:25] LABS: ALT/SGPT 7 U/L (<40); AST/SGOT 9 U/L (<32); Albumin 3.4 gm/dL (3.2-5.2); Albumin/Globulin Ratio 1.3 (1.0-2.3); Alkaline Phosphatase 55 U/L (39-117); Bilirubin,Total 0.5 mg/dL (0.1-1.0); Blood Urea Nitrogen 10 mg/dL (8-23); Calcium 9.2 mg/dL (8.6-10.4); Carbon Dioxide 26 mmol/L (22-30); Chloride 104 mmol/L (96-108); Globulin 2.7 gm/dL (2.2-3.7); Glomerular Filtration Rate 76; Glucose 148 mg/dL (70-105)
[2020-09-02] MEDS ORDERED: LABETALOL 5 MG/ML ML IV PRN ×2 (17:19→17:44)
[2020-09-02] MEDS ORDERED: hydrALAZINE 20 MG/ML VIAL IV PRN ×2 (17:19→17:44)
--- NOTE | 2020-09-02 17:19 | Internal Med History&Physical ---
HPI History of Present Illness Patient information: Note initiated : 09/02/20 at 4:58 pm Service Date, if different from initiated Date: [] Patient: Cony Baig 69 y/o F admitted on for SOB . Chief Complaint: [] History of present illness: Ms. Baig is a 69 year old female with a history of hypertension, diabetes mellitus 2, hyperlipidemia, diastolic heart failure, chronic lower extremity wounds, obesity who presented to the emergency depart ment for shortness of breath. Most likely reason for the shortness of breath is acute on chronic heart failure, the patient ran out of Lasix about a week ago and has become progressively more short of breath. She has not experienced any, no evidence of infectious process. Chest x-ray is consistent with mild CHF. The patient felt better after receiving Lasix IV in the emergency department. Patient was admitted for acute on chronic heart failure. CODE STATUS was discussed on admission, the patient wishes to be full code. Review of systems Constitutional: weight gain, no fever Eyes: no vision changes or pain Cardiovascular: postive for chest pain, no palpitations Respiratory: positive for dyspnea, chronic cough Gastrointestinal: no abdominal pain, no nausea, vomiting, or diarrhea Genitourinary: no dysuria or difficulty voiding Musculoskeletal: chronic arthralgia Integumentary: positive for lower extremity wounds Neurological: no focal weakness or numbness Psychiatric: no anxiety or depression PFSH PFSH All Active Problems (Updated 09/02/20 @ 16:20 by Hector Reid MD) Acute bilateral thoracic back pain (Acute) Contusion of back wall of thorax (Acute) Infected wound (Acute) Elevated lactic acid level (Acute) Non-compliance (Acute) Edema of both lower extremities (Acute) Acute exacerbation of CHF (congestive heart failure) (Acute) Acute exacerbation of chronic obstructive pulmonary disease (Acute) Hypoxia (Acute) Poor sleep hygiene (Chronic) Hypertension (Chronic) Nocturnal hypoxemia (Chronic) Pulmonary hypertension (Chronic) Dyspnea (Chronic) Bereavement (Chronic) Allergic rhinitis (Chronic) Foot pain (Chronic) Arthritis of hand (Chronic) Tenosynovitis of wrist (Chronic) Hypokalemia (Chronic) CKD (chronic kidney disease), stage III (Chronic) Obesity (Chronic) Urinary incontinence, mixed (Chronic) Open wound of lower limb (Chronic) Microalbuminuric diabetic nephropathy (Chronic) Peripheral venous insufficiency (Chronic) Ganglion of wrist (Chronic) Fecal occult blood test positive (Chronic) Hypertriglyceridemia (Chronic) CHF (congestive heart failure) (Chronic) Diastolic heart failure (Chronic) Morbid obesity (Chronic) Ulceration (Chronic) Pain in left leg (Chronic) Weakness (Chronic) Abnormal gait (Chronic) Calluse (Chronic) Urinary incontinence (Chronic) Intermittent claudication (Chronic) Edema, lower extremity (Chronic) Loss of taste (Chronic) Fatigue (Chronic) Anemia (Chronic) Osteoarthritis (Chronic) PVD (peripheral vascular disease) (Chronic) Hyperlipidemia (Chronic) DM II (diabetes mellitus, type II), controlled (Chronic) COPD (chronic obstructive pulmonary disease) (Chronic) Arthritis (Chronic) Allergic bronchitis (Chronic) SOB (shortness of breath) (Chronic) Cellulitis (Chronic) Edema extremities (Chronic) Diabetes (Chronic) Chronic hyperkalemia (Chronic) Venous stasis ulcer of both lower extremities without varicose veins (Chronic) Cellulitis and abscess of leg (Chronic) Diabetic ankle ulcer (Chronic) Asthma with exacerbation (Chronic) Dermatitis fungal (Chronic) CHF (congestive heart failure) (Chronic) Medical History (Updated 09/02/20 @ 16:20 by Hector Reid MD) Abnormal gait Allergic bronchitis Allergic rhinitis Anemia Arthritis Arthritis of hand Bereavement Calluse Cellulitis Patient already started on IV antibiotics Cellulitis and abscess of leg Excellent clinical improvement with chlorhexidene washes and topical skin moisturizer applications. CHF (congestive heart failure) Chronic hyperkalemia CKD (chronic kidney disease), stage III COPD (chronic obstructive pulmonary disease) Diabetes Diabetic ankle ulcer Diastolic heart failure DM II (diabetes mellitus, type II), controlled Dyspnea Edema extremities Will treat with spiral compression bandages and elevation of legs on pillows. Edema, lower extremity Fatigue Fecal occult blood test positive Foot pain Ganglion of wrist Hyperlipidemia Hypertriglyceridemia Hypokalemia Intermittent claudication Loss of taste Microalbuminuric diabetic nephropathy Morbid obesity Nocturnal hypoxemia Obesity Open wound of lower limb Osteoarthritis Knee Hip Pain in left leg Peripheral venous insufficiency Poor sleep hygiene PVD (peripheral vascular disease) SOB (shortness of breath) Tenosynovitis of wrist Ulceration Bilateral Legs Urinary incontinence Urinary incontinence, mixed Venous stasis ulcer of both lower extremities without varicose veins Weakness Surgical History H/O skin graft left leg History of breast biopsy History of foot surgery History of hysterectomy History of rotator cuff surgery Family History Father Lung cancer Jaw cancer Diabetes Grandmother NH (myocardial infarction) Paternal HTN (hypertension) Paternal Family/Other Alzheimer's dementia Paternal Aunt Social History (Updated 12/26/19 @ 15:36 by Mary Hampton RN) household members: other lives independently: Yes marital status: pets and animals: Yes pets and animals: dog(s) sexually active: No smoking status: Never smoker alcohol intake frequency: does not drink substance use type: does not use seatbelt use: always working smoke detector in home: Yes firearms in home: No MEDS/ALLERGIES Home Medications and Allergies Home Medications Medication Instructions Recorded Confirmed Type albuterol sulfate 1 puff IH Q4HP PRN 04/28/16 01/17/20 History clonidine HCl 0.3 mg PO BID 04/28/16 09/02/20 History gabapentin 100 mg PO TID #90 cap 07/04/17 01/17/20 Rx albuterol sulfate 2.5 mg NEB Q4HP PRN #120 ampul.neb 02/23/18 01/17/20 Rx losartan 25 mg tablet 100 mg PO QAM tab 07/25/19 01/17/20 History lovastatin 40 mg tablet 80 mg PO DAILY tab 07/25/19 09/02/20 History potassium chloride 10 mEq 40 meq PO .4XW tab 07/25/19 01/17/20 History tablet,extended release carvedilol 25 mg tablet 25 mg PO BID tab 12/26/19 09/02/20 History cholecalciferol (vitamin D3) 50 50 mcg PO QDAY 12/26/19 01/17/20 History mcg (2,000 unit) capsule heal and sooth 1 tab PO DAILY 12/26/19 09/02/20 History vitamin E 200 unit capsule 800 unit PO QDAY 12/26/19 01/17/20 History oxycodone 2.5 mg PO Q4H PRN #12 tab 01/17/20 Rx furosemide 40 mg PO DAILY 02/26/20 History albuterol sulfate [Ventolin HFA] 1 inh INHALATION QIDP PRN 09/02/20 09/02/20 History salmeterol [Serevent Diskus] 1 inh INHALATION BID 09/02/20 09/02/20 History Allergies Allergy/AdvReac Type Severity Reaction Status Date / Time lidocaine AdvReac Intermediate Muscle Pain Verified 12/26/19 15:27 morphine AdvReac Intermediate Vomiting Verified 12/26/19 15:27 wool AdvReac Intermediate Rash Verified 12/26/19 15:27 adhesive tape AdvReac Mild Rash Verified 12/26/19 15:27 tramadol AdvReac Mild Vomiting Verified 12/26/19 15:27 EXAM Constitutional Vitals: Temp Pulse Resp BP Pulse Ox 97.7 F 85 27 H 192/107 94 09/02/20 10:50 09/02/20 15:46 09/02/20 14:24 09/02/20 15:46 09/02/20 15:46 Additional findings Additional findings: Head: Atraumatic, normal inspection. Eyes: normal appearance, no scleral icterus. Neck: full ROM Respiratory: tachypnea, speaks in full sentences Cardiovascular: normal rate and rhythm, S1, S2. GI/Abdominal: soft, nontender, no guarding. Extremities: bilateral lower extremity edema, lower extremities wrapped in bandage Neurological: CN II-XII intact, intact motor, intact sensation. Psychiatric: normal mood. Skin: warm, normal color DATA Data Completed and Pending Labs: Labs from last 24 hours 09/02/20 09/02/20 09/02/20 12:13 12:13 12:13 WBC 8.0 RBC 4.23 Hgb 12.1 Hct 38.7 MCV 91.5 MCH 28.6 MCHC 31.3 RDW 18.6 H Plt Count 213 MPV 9.9 Neut % (Auto) 53.5 Lymph % (Auto) 37.1 [place] % (Auto) 5.3 Eos % (Auto) 3.5 Baso % (Auto) 0.6 Lymph # (Auto) 2.98 [place] # (Auto) 0.43 Eos # (Auto) 0.28 Baso # (Auto) 0.05 Absolute Neutrophils 4.30 Sodium 139 Potassium 4.2 Chloride 104 Carbon Dioxide 26 Anion Gap 9.0 BUN 10 Creatinine 0.8 GFR Calculation 76 Glucose 148 H Calcium 9.2 Total Bilirubin 0.5 AST 9 ALT 7 Alkaline Phosphatase 55 Troponin T 0.01 NT-Pro-B Natriuret Pep 8291.0 H Total Protein 6.1 Albumin 3.4 Globulin 2.7 Albumin/Globulin Ratio 1.3 A/P Narrative A/P Narrative: Assessment: 69 year old female with a history of hypertension, diabetes mellitus II (controlled with diet), diastolic heart failure, possible pulmonary hypertension (suggestive on CT chest), hypoxia (currently in the process of getting home oxygen), bilateral stasis dermatitis and chronic lower extremity wounds (following at the wound clinic), morbid obesity (BMI 48) who presented to the emergency department for shortness of breath secondary to acute on chronic diastolic heart failure likely because she ran out of lasix about five days prior to admission. #Acute on chronic diastolic heart failure #Diabetes mellitus type II #Hypertension: poorly controlled #Possible pulmonary hypertension #Increased risk of KAYLEN #Chronic lower extremity wounds #Obesity Plan -Lasix IV BID, follow urine output and daily weight. -Follow renal function and electrolytes. -Low sodium diet. -Telemetry -Home Coreg, Losartan, Clonidine -PRN labetalol/hydralazine. -Continue home NOY/LABA -SSI -Medication reconciliation. -DVT ppx: lovenox -Dispo: home Time Spent With Patient Time: Total time spent is greater than 50% in coordination of care (as documented) at patient's floor/unit and/or counseling patient:
[2020-09-02] MEDS ORDERED: DEXTROSE 50% 50 ML VIAL IV PRN (17:44)
[2020-09-02] MEDS ORDERED: SENNOSIDES 1 TABLET PO PRN (17:44)
[2020-09-02] MEDS ORDERED: LACTULOSE 20 GM/30 ML ORAL.SOL PO PRN (17:44)
[2020-09-02] MEDS ORDERED: ONDANSETRON 4 MG/2 ML VIAL IV PRN (17:44)
[2020-09-02] MEDS ORDERED: DEXTROSE 31 GM ORAL.SUSP PO PRN (17:44)
[2020-09-02] MEDS ORDERED: ALBUTEROL SULFATE 2.5 MG/3 ML NEBULIZER NEB PRN (17:44)
[2020-09-02] MEDS: INSULIN LISPRO 1 UNIT/0.01 ML UNIT SQ SCH ×2 (17:51→20:40)
[2020-09-02] MEDS: CARVEDILOL 12.5 MG TABLET PO SCH (17:53)
[2020-09-02] MEDS: cloNIDine HCL 0.1 MG TABLET PO SCH (20:40)
[2020-09-02] MEDS: DOCUSATE SODIUM 100 MG CAPSULE PO SCH (20:40)
[2020-09-02] MEDS: GABAPENTIN 100 MG CAPSULE PO SCH (20:40)
[2020-09-02] MEDS: ACETAMINOPHEN 500 MG TABLET PO PRN (20:40)
[2020-09-02] MEDS: 0.9 % SODIUM CHLORIDE 10 ML SYRINGE IV SCH (20:41)
[2020-09-02] MEDS: SIMVASTATIN 40 MG TABLET PO SCH (20:43)
[2020-09-02] MEDS: SALMETEROL XINAFOATE 1 PUFF INHALER INH SCH (22:51)
[2020-09-03] MEDS: 0.9 % SODIUM CHLORIDE 10 ML SYRINGE IV SCH ×3 (05:43→21:14)
[2020-09-03 08:09] LABS: Blood Urea Nitrogen 13 mg/dL (8-23); Calcium 9.4 mg/dL (8.6-10.4); Carbon Dioxide 27 mmol/L (22-30); Chloride 94 mmol/L (96-108); Glomerular Filtration Rate 76; Glucose 182 mg/dL (70-105)
[2020-09-03] MEDS: cloNIDine HCL 0.1 MG TABLET PO SCH ×2 (08:17→21:13)
[2020-09-03] MEDS: INSULIN LISPRO 1 UNIT/0.01 ML UNIT SQ SCH ×4 (08:17→21:14)
[2020-09-03] MEDS: CARVEDILOL 12.5 MG TABLET PO SCH ×2 (08:17→17:15)
[2020-09-03] MEDS: VITAMIN E (DL,TOCOPHERYL ACET) 400 UNIT CAPSULE PO SCH (08:17)
[2020-09-03] MEDS: ENOXAPARIN 40 MG/0.4 ML SYRINGE SQ SCH (08:18)
[2020-09-03] MEDS: LOSARTAN 50 MG TABLET PO SCH (08:18)
[2020-09-03] MEDS: DOCUSATE SODIUM 100 MG CAPSULE PO SCH ×2 (08:18→19:22)
[2020-09-03] MEDS: SALMETEROL XINAFOATE 1 PUFF INHALER INH SCH ×2 (08:19→19:22)
[2020-09-03] MEDS: FUROSEMIDE 40 MG/4 ML VIAL IV SCH ×2 (08:19→15:33)
[2020-09-03] MEDS: GABAPENTIN 100 MG CAPSULE PO SCH ×3 (08:19→21:14)
[2020-09-03] MEDS: VITAMIN D3 1,000 UNIT TABLET PO SCH (08:19)
[2020-09-03] MEDS: ACETAMINOPHEN 500 MG TABLET PO PRN ×2 (08:44→18:24)
--- NOTE | 2020-09-03 14:01 | Internal Med Progress Note ---
SUBJECTIVE Subjective Patient information: Note initiated : 09/03/20 at 1:50 pm Service Date, if different from initiated Date: [] Patient: Cony Baig a 69 y/o F admitted on 09/02/20 for SOB . Chief Complaint: [] Interval history: History of present illness: Ms. Baig is a 69 year old female with a history of hypertension, diabetes mellitus 2, hyperlipidemia, diastolic heart failure, chronic lower extremity wounds, obesity who presented to the emergency department for shortness of breath. Most likely reason for the shortness of breath is acute on chronic heart failure, the patient ran out of Lasix about a week ago and has become progressively more short of breath. She has not experienced any, no evidence of infectious process. Chest x-ray is consistent with mild CHF. The patient felt better after receiving Lasix IV in the emergenc y department. Patient was admitted for acute on chronic heart failure. CODE STATUS was discussed on admission, the patient wishes to be full code. 09/04 Constitutional Vitals: Vital Signs Temp Pulse Resp BP Pulse Ox 97.9 F 69 20 137/72 94 09/03/20 10:08 09/03/20 13:37 09/03/20 13:37 09/03/20 10:08 09/03/20 13:37 Period Temp Pulse Resp BP Sys/Najera Pulse Ox Last 24 Hr 97.7 F-98.6 F 69-97 16-31 123-214/63-119 87-96 Intake and Output 09/02/20 09/03/20 09/03/20 21:59 05:59 13:59 Intake Total 950 420 Output Total 1900 1 650 Balance -1900 949 -230 Weight 128.82 kg 123.014 kg Intake & Output: Intake & Output 09/02/20 09/03/20 09/03/20 21:59 05:59 13:59 Intake Total 950 420 Output Total 1900 1 650 Balance -1900 949 -230 Weight 128.82 kg 123.014 kg Intake: Oral 950 420 Output: Void Amount 1900 650 # of times incontinent of urine 1 Other: Meal Lunch Percent of Meal Consumed 100% Feeding Ability Independent Urine Appearance Clear Clear Urine Color Straw Bright Yellow Urine Odor Normal Stool Size Moderate Moderate Stool Color Brown Brown Yellow Stool Consistency Formed # Voids 1 1 # Bowel Movements 1 Exam: General: Alert, Awake, No acute Distress, obese Eyes/N/T: EOMI, Head/Neck: neck supple, CV: RRR, No murmurs, Pulm: b/l, no wheezing Abd: soft, nontender, +BS x4 Ext: no clubbing/cyanosis, b/l LE edema Neuro: Alert, no focal deficits, moves all extremities, Skin: warm/dry OBJ DATA Labs CBC & Chem 7: 09/02/20 12:13 09/03/20 05:41 Labs: Abnormal Lab Results 09/03/20 09/02/20 09/02/20 05:41 12:13 12:13 RDW 18.6 H Chloride 94 L Glucose 182 H 148 H NT-Pro-B Natriuret Pep 8291.0 H Meds: Medications Acetaminophen (Acetaminophen 500 Mg Tablet) 500 mg PO Q4-6HP PRN; Protocol PRN Reason: Per Pain Protocol Last Admin: 09/03/20 08:44 Dose: 500 mg Documented by: Albuterol Sulfate (Albuterol Sulfate 2.5 Mg/3 Ml Nebulizer) 2.5 mg NEB Q4HP PRN PRN Reason: wheezing or cough Carvedilol (Carvedilol 12.5 Mg Tablet) 25 mg PO BIDCC [facility] Last Admin: 09/03/20 08:17 Dose: 25 mg Documented by: Clonidine HCl (Clonidine Hcl 0.1 Mg Tablet) 0.3 mg PO BID [facility] Last Admin: 09/03/20 08:17 Dose: 0.3 mg Documented by: Dextrose (Dextrose 50% 50 Ml Vial) 0 ml IV UD PRN PRN Reason: Hypoglycemia Diagnostic Test (Pha) (Accu-Chek 1 Each Strip) 1 each FS ACHS [facility] Last Admin: 09/03/20 12:23 Dose: 1 each Documented by: Docusate Sodium (Docusate Sodium 100 Mg Capsule) 100 mg PO BID [facility] Last Admin: 09/03/20 08:18 Dose: Not Given Documented by: Enoxaparin Sodium (Enoxaparin 40 Mg/0.4 Ml Syringe) 40 mg SQ DAILY [facility] Last Admin: 09/03/20 08:18 Dose: 40 mg Documented by: Furosemide (Furosemide 40 Mg/4 Ml Vial) 40 mg IV BIDD [facility] Last Admin: 09/03/20 08:19 Dose: 40 mg Documented by: Gabapentin (Gabapentin 100 Mg Capsule) 100 mg PO TID [facility] Last Admin: 09/03/20 08:19 Dose: 100 mg Documented by: Glucose (Dextrose 31 Gm Oral.Susp) 15 gm PO PRN PRN PRN Reason: Hypoglycemia Hydralazine HCl (Hydralazine 20 Mg/Ml Vial) 10 mg IV Q4-6HP PRN PRN Reason: Hypertension Last Admin: 09/02/20 17:56 Dose: 10 mg Documented by: Insulin Human Lispro (Insulin Lispro 1 Unit/0.01 Ml Unit) 0 unit SQ ACHS [facility]; Protocol Last Admin: 09/03/20 12:23 Dose: 2 unit Documented by: Labetalol HCl (Labetalol 5 Mg/Ml Ml) 10 mg IV Q10M PRN PRN Reason: Hypertension Last Admin: 09/02/20 19:50 Dose: 10 mg Documented by: Lactulose (Lactulose 20 Gm/30 Ml Oral.[place]) 10 gm PO DAILYP PRN PRN Reason: Constipation Losartan Potassium (Losartan 50 Mg Tablet) 100 mg PO DAILY [facility] Last Admin: 09/03/20 08:18 Dose: 100 mg Documented by: Ondansetron HCl (Ondansetron 4 Mg/2 Ml Vial) 4 mg IV Q4HP PRN; Protocol PRN Reason: Nausea And Vomiting Salmeterol Xinafoate (Salmeterol Xinafoate 1 Puff Inhaler) 1 puff INH BID [facility] Last Admin: 09/03/20 08:19 Dose: Not Given Documented by: Senna (Sennosides 1 Tablet) 2 tab PO HSP PRN PRN Reason: Constipation Simvastatin (Simvastatin 40 Mg Tablet) 40 mg PO HS [facility] Last Admin: 09/02/20 20:43 Dose: 40 mg Documented by: Sodium Chloride (0.9 % Sodium Chloride 10 Ml Syringe) 10 ml IV Q8 [facility] Last Admin: 09/03/20 12:28 Dose: 10 ml Documented by: Vitamin D (Vitamin D3 1,000 Unit Tablet) 2,000 unit PO DAILY [facility] Last Admin: 09/03/20 08:19 Dose: 2,000 unit Documented by: Vitamin E (Vitamin E (Dl,Tocopheryl Acet) 400 Unit Capsule) 800 unit PO DAILY [facility] Last Admin: 09/03/20 08:17 Dose: 800 unit Documented by: A/P Narrative A/P Narrative: Assessment: #Acute on chronic diastolic CHF: #Acute hypoxic respiratory failure: 2/2 above -on 2L NC #COPD( ): #Likely KAYLEN: #Possible pulmonary hypertension #Diabetes II w/neuropathy: #HTN/HLD: poorly controlled #Chronic lower extremity wounds: #Obesity Plan -Lasix IV BID, follow urine output and daily weight. -Follow renal function and electrolytes. -Low sodium diet. -Home Coreg/Losartan/Clonidine, PRN labetalol/hydralazine. -Continue home NOY/LABA -SSI -wound care/Dr. Kilgore -pt/ot -f/u with Pulm outpt -DVT ppx: lovenox Time Spent With Patient Time: Total time spent is greater than 50% in coordination of care (as documented) at patient's floor/unit and/or counseling patient: QUALITY VTE Deep Vein Thrombosis/Pulmonary Embolism Present on Admission: No
--- NOTE | 2020-09-03 16:37 | General Surgery Consult Note ---
HPI Data of Consult Consult date: 09/03/20 Requesting physician: Garo Grissom Consult Narrative Reason for consult: Wound care for venous leg ulcers care and treatment. History of present illness: I saw this patient along with Alfredo RN,, Inpatient wound care nurse. Reviewed EHR and patient's progress thus far. Admitted via ER with shortness of breath and CHF. She has improved since admission and is now progressing to her baseline ADL. cc:: CC: Garo Grissom MD [facility] All Active Problems Acute bilateral thoracic back pain (Acute) Contusion of back wall of thorax (Acute) Infected wound (Acute) Elevated lactic acid level (Acute) Non-compliance (Acute) Edema of both lower extremities (Acute) Acute exacerbation of CHF (congestive heart failure) (Acute) Acute exacerbation of chronic obstructive pulmonary disease (Acute) Hypoxia (Acute) Poor sleep hygiene (Chronic) Hypertension (Chronic) Nocturnal hypoxemia (Chronic) Pulmonary hypertension (Chronic) Dyspnea (Chronic) Bereavement (Chronic) Allergic rhinitis (Chronic) Foot pain (Chronic) Arthritis of hand (Chronic) Tenosynovitis of wrist (Chronic) Hypokalemia (Chronic) CKD (chronic kidney disease), stage III (Chronic) Obesity (Chronic) Urinary incontinence, mixed (Chronic) Open wound of lower limb (Chronic) Microalbuminuric diabetic nephropathy (Chronic) Peripheral venous insufficiency (Chronic) Ganglion of wrist (Chronic) Fecal occult blood test positive (Chronic) Hypertriglyceridemia (Chronic) CHF (congestive heart failure) (Chronic) Diastolic heart failure (Chronic) Morbid obesity (Chronic) Ulceration (Chronic) Pain in left leg (Chronic) Weakness (Chronic) Abnormal gait (Chronic) Calluse (Chronic) Urinary incontinence (Chronic) Intermittent claudication (Chronic) Edema, lower extremity (Chronic) Loss of taste (Chronic) Fatigue (Chronic) Anemia (Chronic) Osteoarthritis (Chronic) PVD (peripheral vascular disease) (Chronic) Hyperlipidemia (Chronic) DM II (diabetes mellitus, type II), controlled (Chronic) COPD (chronic obstructive pulmonary disease) (Chronic) Arthritis (Chronic) Allergic bronchitis (Chronic) SOB (shortness of breath) (Chronic) Cellulitis (Chronic) Edema extremities (Chronic) Diabetes (Chronic) Chronic hyperkalemia (Chronic) Venous stasis ulcer of both lower extremities without varicose veins (Chronic) Cellulitis and abscess of leg (Chronic) Diabetic ankle ulcer (Chronic) Asthma with exacerbation (Chronic) Dermatitis fungal (Chronic) CHF (congestive heart failure) (Chronic) Medical History Abnormal gait Allergic bronchitis Allergic rhinitis Anemia Arthritis Arthritis of hand Bereavement Calluse Cellulitis Patient already started on IV antibiotics Cellulitis and abscess of leg Excellent clinical improvement with chlorhexidene washes and topical skin moisturizer applications. CHF (congestive heart failure) Chronic hyperkalemia CKD (chronic kidney disease), stage III COPD (chronic obstructive pulmonary disease) Diabetes Diabetic ankle ulcer Diastolic heart failure DM II (diabetes mellitus, type II), controlled Dyspnea Edema extremities Will treat with spiral compression bandages and elevation of legs on pillows. Edema, lower extremity Fatigue Fecal occult blood test positive Foot pain Ganglion of wrist Hyperlipidemia Hypertriglyceridemia Hypokalemia Intermittent claudication Loss of taste Microalbuminuric diabetic nephropathy Morbid obesity Nocturnal hypoxemia Obesity Open wound of lower limb Osteoarthritis Knee Hip Pain in left leg Peripheral venous insufficiency Poor sleep hygiene PVD (peripheral vascular disease) SOB (shortness of breath) Tenosynovitis of wrist Ulceration Bilateral Legs Urinary incontinence Urinary incontinence, mixed Venous stasis ulcer of both lower extremities without varicose veins Weakness Surgical History H/O skin graft left leg History of breast biopsy History of foot surgery History of hysterectomy History of rotator cuff surgery Family History Father Lung cancer Jaw cancer Diabetes Grandmother [place] (myocardial infarction) Paternal HTN (hypertension) Paternal Family/Other Alzheimer's dementia Paternal Aunt Social History household members: other lives independently: Yes marital status: pets and animals: Yes pets and animals: dog(s) sexually active: No smoking status: Never smoker alcohol intake frequency: does not drink substance use type: does not use seatbelt use: always working smoke detector in home: Yes firearms in home: No MEDS/ALLERGIES Home Medications and Allergies Home Medications Medication Instructions Recorded Confirmed Type clonidine HCl 0.3 mg PO BID 04/28/16 09/02/20 History gabapentin 100 mg PO TID #90 cap 07/04/17 09/02/20 Rx losartan 25 mg tablet 100 mg PO QAM tab 07/25/19 09/02/20 History lovastatin 40 mg tablet 80 mg PO DAILY tab 07/25/19 09/02/20 History potassium chloride 10 mEq 40 meq PO .4XW tab 07/25/19 09/02/20 History tablet,extended release carvedilol 25 mg tablet 25 mg PO BID tab 12/26/19 09/02/20 History cholecalciferol (vitamin D3) 50 50 mcg PO QDAY 12/26/19 09/02/20 History mcg (2,000 unit) capsule vitamin E 200 unit capsule 800 unit PO QDAY 12/26/19 09/02/20 History furosemide 40 mg PO DAILY 02/26/20 09/02/20 History albuterol sulfate [Ventolin HFA] 1 inh INHALATION QIDP PRN 09/02/20 09/02/20 His tory salmeterol [Serevent Diskus] 1 inh INHALATION BID 09/02/20 09/02/20 History Allergies Allergy/AdvReac Type Severity Reaction Status Date / Time lidocaine AdvReac Intermediate Muscle Pain Verified 12/26/19 15:27 morphine AdvReac Intermediate Vomiting Verified 12/26/19 15:27 wool AdvReac Intermediate Rash Verified 12/26/19 15:27 adhesive tape AdvReac Mild Rash Verified 12/26/19 15:27 tramadol AdvReac Mild Vomiting Verified 12/26/19 15:27 Physical Examination Vital Signs Vital signs: Temp Pulse Resp BP Pulse Ox 97.9 F 69 20 137/72 94 09/03/20 10:08 09/03/20 13:37 09/03/20 13:37 09/03/20 10:08 09/03/20 13:37 General physical appearance General physical exam: no pain, obese and other (Comfortable in no distress. 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 Stage 1-2 ulcer sites of lower legs are covered with yazmin epithelium. For local cleansing and 2 step lite compression. ) Neurologic Neurologic: Present normal coordination and other (Non focal , unremarkable neurological exam. No gross focal deficits. ) Psychiatric Psychiatric: Present oriented to time, oriented to person, oriented to place, speech is normal and memory intact Results Labs Result diagrams: 09/02/20 12:13 09/04/20 05:50 Labs: Abnormal lab results 09/03/20 Range/Units 05:41 Chloride 94 L (96-108) mmol/L Glucose 182 H (70-105) mg/dL Diabetes panel 09/02/20 09/03/20 Range/Units 18:01 05:41 Sodium TNP 136 Potassium TNP 3.9 Chloride TNP 94 L Carbon Dioxide TNP 27 BUN TNP 13 Creatinine TNP 0.8 Glucose TNP 182 H Calcium TNP 9.4 Calcium panel 09/02/20 09/03/20 Range/Units 18:01 05:41 Calcium TNP 9.4 Pituitary panel 09/02/20 09/03/20 Range/Units 18:01 05:41 Sodium TNP 136 Potassium TNP 3.9 Chloride TNP 94 L Carbon Dioxide TNP 27 BUN TNP 13 Creatinine TNP 0.8 Glucose TNP 182 H Calcium TNP 9.4 Adrenal panel 09/02/20 09/03/20 Range/Units 18:01 05:41 Sodium TNP 136 Potassium TNP 3.9 Chloride TNP 94 L Carbon Dioxide TNP 27 BUN TNP 13 Creatinine TNP 0.8 Glucose TNP 182 H Calcium TNP 9.4 All other labs normal. A/P Narrative A/P Narrative: Assessment: Admitted with CHF and SOB. Improved. Chronic Venous leg ulcers. Stable Plan: On going local wound care. Local cleaning and compression dressings. Will see again PRN basis, during her hospitalization. For out patient f/u at wound clinic after discharge. Time Spent With Patient Time: Total time spent is greater than 50% in coordination of care (as documented) at patient's floor/unit and/or counseling patient: Total time spent with greater than 50% in coordination of care (as documented) at patient's floor/unit and/or counseling patient:: 15 - minutes
--- NOTE | 2020-09-03 18:02 | Internal Med Progress Note ---
SUBJECTIVE Subjective Patient information: Note initiated : 09/03/20 at 6:00 pm Service Date, if different from initiated Date: [] Patient: Cony Baig a 69 y/o F admitted on 09/02/20 for SOB . Chief Complaint: [Shortness of breath] Principal diagnosis: acute on chronic diastolic heart failure Interval history: Ms. Baig is a 69 year old female with a history of hypertension, diabetes mellitus 2, hyperlipidemia, diastolic heart failure, chronic lower extremity wounds, obesity who presented to the emergency department for shortness of breath. Most likely reason for the shortness of breath is acute on chronic heart failure, the patient ran out of Lasix about a week ago and has become progressively more short of breath. She has not experienced any, no evidence of infectious process. Chest x-ray is consistent with mild CHF. The patient felt better after receiving Lasix IV in the emergency department. Patient was admitted for acute on chronic heart failure. CODE STATUS was discussed on admission, the patient wishes to be full code. 09/03 Feels better today, labs look ok, continue diuresis. Wound care following. Constitutional Vitals: Vital Signs Temp Pulse Resp BP Pulse Ox 98.2 F 65 20 101/52 94 09/03/20 16:03 09/03/20 16:03 09/03/20 16:53 09/03/20 16:03 09/03/20 16:03 Period Temp Pulse Resp BP Sys/Najera Pulse Ox Last 24 Hr 97.9 F-98.6 F 63-94 16-31 98-183/52-102 91-97 Intake and Output 09/03/20 09/03/20 09/03/20 05:59 13:59 21:59 Intake Total 950 420 Output Total 1 1000 1000 Balance 949 580 -1000 Weight 123.014 kg 123.014 kg Patient Weight 09/04/20 05:59 Weight 123.014 kg Intake & Output: Intake & Output 09/03/20 09/03/20 09/03/20 05:59 13:59 21:59 Intake Total 950 420 Output Total 1 1000 1000 Balance 949 -580 -1000 Weight 123.014 kg 123.014 kg Intake: Oral 950 420 Output: Void Amount 1000 1000 # of times incontinent of urine 1 Other: Meal Lunch Percent of Meal Consumed 100% Feeding Ability Independent Urine Appearance Clear Clear Urine Color Bright Yellow Bright Yellow Stool Size Moderate Moderate Stool Color Brown Brown Yellow Stool Consistency Formed # Voids 1 1 # Bowel Movements 1 Additional findings Additional findings: Additional findings: Head: Atraumatic, normal inspection. Eyes: normal appearance, no scleral icterus. Neck: full ROM Respiratory: tachypnea, speaks in full sentences Cardiovascular: normal rate and rhythm, S1, S2. GI/Abdominal: soft, nontender, no guarding. Extremities: bilateral lower extremity edema, lower extremities wrapped in bandage Neurological: CN II-XII intact, intact motor, intact sensation. Psychiatric: normal mood. Skin: warm, normal color OBJ DATA Labs CBC & Chem 7: 09/02/20 12:13 09/03/20 05:41 Labs: Abnormal Lab Results 09/03/20 09/02/20 09/02/20 05:41 12:13 12:13 RDW 18.6 H Chloride 94 L Glucose 182 H 148 H NT-Pro-B Natriuret Pep 8291.0 H Meds: Medications Acetaminophen (Acetaminophen 500 Mg Tablet) 500 mg PO Q4-6HP PRN; Protocol PRN Reason: Per Pain Protocol Last Admin: 09/03/20 08:44 Dose: 500 mg Documented by: Albuterol Sulfate (Albuterol Sulfate 2.5 Mg/3 Ml Nebulizer) 2.5 mg NEB Q4HP PRN PRN Reason: wheezing or cough [facility] ([facility] Last Admin: 09/03/20 17:15 Dose: 25 mg Documented by: Clonidine HCl (Clonidine Hcl 0.1 Mg Tablet) 0.3 mg PO BID [facility] Last Admin: 09/03/20 08:17 Dose: 0.3 mg Documented by: Dextrose (Dextrose 50% 50 Ml Vial) 0 ml IV UD PRN PRN Reason: Hypoglycemia Diagnostic Test (Pha) (Accu-Chek 1 Each Strip) 1 each FS ACHS [facility] Last Admin: 09/03/20 17:15 Dose: 1 each Documented by: Docusate Sodium (Docusate Sodium 100 Mg Capsule) 100 mg PO BID [facility] Last Admin: 09/03/20 08:18 Dose: Not Given Documented by: Enoxaparin Sodium (Enoxaparin 40 Mg/0.4 Ml Syringe) 40 mg SQ DAILY [facility] Last Admin: 09/03/20 08:18 Dose: 40 mg Documented by: Furosemide (Furosemide 40 Mg/4 Ml Vial) 40 mg IV BIDD [facility] Last Admin: 09/03/20 15:33 Dose: 40 mg Documented by: Gabapentin (Gabapentin 100 Mg Capsule) 100 mg PO TID [facility] Last Admin: 09/03/20 15:33 Dose: 100 mg Documented by: Glucose (Dextrose 31 Gm Oral.Susp) 15 gm PO PRN PRN PRN Reason: Hypoglycemia Hydralazine HCl (Hydralazine 20 Mg/Ml Vial) 10 mg IV Q4-6HP PRN PRN Reason: Hypertension Last Admin: 09/02/20 17:56 Dose: 10 mg Documented by: Insulin Human Lispro (Insulin Lispro 1 Unit/0.01 Ml Unit) 0 unit SQ [facility]; Protocol Last Admin: 09/03/20 17:15 Dose: 1 unit Documented by: Labetalol HCl (Labetalol 5 Mg/Ml Ml) 10 mg IV Q10M PRN PRN Reason: Hypertension Last Admin: 09/02/20 19:50 Dose: 10 mg Documented by: Lactulose (Lactulose 20 Gm/30 Ml Oral.Abbey) 10 gm PO DAILYP PRN PRN Reason: Constipation Losartan Potassium (Losartan 50 Mg Tablet) 100 mg PO DAILY [facility] Last Admin: 09/03/20 08:18 Dose: 100 mg Documented by: Ondansetron HCl (Ondansetron 4 Mg/2 Ml Vial) 4 mg IV Q4HP PRN; Protocol PRN Reason: Nausea And Vomiting Salmeterol Xinafoate (Salmeterol Xinafoate 1 Puff Inhaler) 1 puff INH BID [facility] Last Admin: 09/03/20 08:19 Dose: Not Given Documented by: Senna (Sennosides 1 Tablet) 2 tab PO HSP PRN PRN Reason: Constipation Simvastatin (Simvastatin 40 Mg Tablet) 40 mg PO HS [facility] Last Admin: 09/02/20 20:43 Dose: 40 mg Documented by: Sodium Chloride (0.9 % Sodium Chloride 10 Ml Syringe) 10 ml IV Q8 [facility] Last Admin: 09/03/20 12:28 Dose: 10 ml Documented by: Vitamin D (Vitamin D3 1,000 Unit Tablet) 2,000 unit PO DAILY [facility] Last Admin: 09/03/20 08:19 Dose: 2,000 unit Documented by: Vitamin E (Vitamin E (Dl,Tocopheryl Acet) 400 Unit Capsule) 800 unit PO DAILY [facility] Last Admin: 09/03/20 08:17 Dose: 800 unit Documented by: A/P Narrative A/P Narrative: Assessment: 69 year old female with a history of hypertension, diabetes mellitus II (controlled with diet), diastolic heart failure, possible pulmonary hypertension (suggestive on CT chest), hypoxia (currently in the process of getting home oxygen), bilateral stasis dermatitis and chronic lower extremity wounds (following at the wound clinic), morbid obesity (BMI 48) who presented to the emergency department for shortness of breath secondary to acute on chronic diastolic heart failure likely because she ran out of lasix about five days prior to admission. #Acute on chronic diastolic heart failure #Diabetes mellitus type II: diet controlled #Hypertension #Possible pulmonary hypertension #Increased risk of KAYLEN #Chronic lower extremity wounds #Obesity Plan -Continue Lasix IV BID, follow urine output and daily weight, probably transition to oral lasix tomorrow. -Follow renal function and electrolytes. -Low sodium diet. -Telemetry -Home Coreg, Losartan, Clonidine -PRN labetalol/hydralazine. -Continue home NOY/LABA -SSI -Wound care following. -DVT ppx: lovenox -Dispo: home Time Spent With Patient Time: Total time spent is greater than 50% in coordination of care (as documented) at patient's floor/unit and/or counseling patient: QUALITY VTE Deep Vein Thrombosis/Pulmonary Embolism Present on Admission: No
[2020-09-03] MEDS: SIMVASTATIN 40 MG TABLET PO SCH (21:14)
[2020-09-04] MEDS: 0.9 % SODIUM CHLORIDE 10 ML SYRINGE IV SCH (05:33)
[2020-09-04 07:12] LABS: ALT/SGPT 7 U/L (<40); AST/SGOT 13 U/L (<32); Albumin 3.6 gm/dL (3.2-5.2); Albumin/Globulin Ratio 1.2 (1.0-2.3); Alkaline Phosphatase 61 U/L (39-117); Bilirubin,Direct < 0.2 mg/dL (<0.3); Bilirubin,Total 0.4 mg/dL (0.1-1.0); Blood Urea Nitrogen 18 mg/dL (8-23); Carbon Dioxide 30 mmol/L (22-30); Chloride 95 mmol/L (96-108); Glomerular Filtration Rate 76; Glucose 116 mg/dL (70-105); Lactate Dehydrogenase 210 U/L (135-225); Phosphorous 4.3 mg/dL (2.5-4.5); Triglycerides 374 mg/dL (<150); Uric Acid 8.1 mg/dL (2.5-8.0)
[2020-09-04] MEDS: INSULIN LISPRO 1 UNIT/0.01 ML UNIT SQ SCH ×2 (07:59→12:25)
--- NOTE | 2020-09-04 07:59 | Internal Med Progress Note ---
SUBJECTIVE Subjective Patient information: Note initiated : 09/04/20 at 7:54 am Service Date, if different from initiated Date: [] Patient: Cony Baig 69 y/o F admitted on 09/02/20 for SOB . Chief Complaint: [] Principal diagnosis: acute on chronic diastolic heart failure Interval history: Interval history: Ms. Baig is a 69 year old female with a history of hypertension, diabetes mellitus 2, hyperlipidemia, diastolic heart failure, chronic lower extremity wounds, obesity who presented to the emergency department for shortness of breath. Most likely reason for the shortness of breath is acute on chronic heart failure, the patient ran out of Lasix about a week ago and has become progressively more short of breath. She has not experienced any, no evidence of infectious process. Chest x-ray is consistent with mild CHF. The patient felt better after receiving Lasix IV in the emergency department. Patient was admitted for acute on chronic heart failure. CODE STATUS was discussed on admission, the patient wishes to be full code. 09/03 Feels better today, labs look ok, continue diuresis. Wound care following. 09/04 Feeling better today. Patient currently on room air but nurse says she has her off and on a liter. Patient does have COPD and states she is being considered for evaluation of home oxygen. No new complaints. Feeling close to normal. Review of Systems: denies headache/fever/chills/nausea/vomiting/chest or abdominal pain/diarrhea. Otherwise see above. Constitutional Vitals: Vital Signs Temp Pulse Resp BP Pulse Ox 98.0 F 60 16 100/58 95 09/04/20 04:02 09/04/20 04:14 09/04/20 04:14 09/04/20 04:02 09/04/20 07:16 Period Temp Pulse Resp BP Sys/Najera Pulse Ox Last 24 Hr 97.8 F-98.2 F 59-80 15-29 98-153/52-87 91-98 Intake and Output 09/03/20 09/04/20 09/04/20 21:59 05:59 13:59 Intake Total 320 200 Output Total 1450 400 Balance -1450 320 -200 Weight 121.88 kg Intake & Output: Intake & Output 09/03/20 09/04/20 09/04/20 21:59 05:59 13:59 Intake Total 320 200 Output Total 1450 400 Balance -1450 320 -200 Weight 121.88 kg Intake: Oral 320 200 Output: Void Amount 1450 400 Other: Urine Appearance Clear Clear Urine Color Pale Bright Yellow Stool Size Moderate Stool Color Brown Stool Consistency Soft Exam: General: Alert, Awake, No acute Distress, obese Eyes/N/T: EOMI, Head/Neck: neck supple, CV: RRR, No murmurs, Pulm: mild fine bibasilar rales, no wheezing Abd: soft, nontender, +BS x4 Ext: no clubbing/cyanosis, b/l LE edema Neuro: Alert, no focal deficits, moves all extremities, Skin: warm/dry OBJ DATA Labs CBC & Chem 7: 09/02/20 12:13 09/04/20 05:50 Labs: Abnormal Lab Results 09/04/20 09/03/20 09/02/20 05:50 05:41 12:13 RDW Chloride 95 L 94 L Glucose 116 H 182 H 148 H Uric Acid 8.1 H NT-Pro-B Natriuret Pep 8291.0 H Triglycerides 374 H 09/02/20 12:13 RDW 18.6 H Chloride Glucose Uric Acid NT-Pro-B Natriuret Pep Triglycerides Meds: Medications Acetaminophen (Acetaminophen 500 Mg Tablet) 500 mg PO Q4-6HP PRN; Protocol PRN Reason: Per Pain Protocol Last Admin: 09/03/20 18:24 Dose: 500 mg Documented by: Albuterol Sulfate (Albuterol Sulfate 2.5 Mg/3 Ml Nebulizer) 2.5 mg NEB Q4HP PRN PRN Reason: wheezing or cough Carvedilol ([facility] 12.5 Mg Tablet) [facility] Last Admin: 09/03/20 17:15 Dose: 25 mg Documented by: Clonidine HCl (Clonidine Hcl 0.1 Mg Tablet) 0.3 mg PO BID [facility] Last Admin: 09/03/20 21:13 Dose: 0.3 mg Documented by: Dextrose (Dextrose 50% 50 Ml Vial) 0 ml IV UD PRN PRN Reason: Hypoglycemia Diagnostic Test (Pha) (Accu-Chek 1 Each Strip) 1 each FS ACHS [facility] Last Admin: 09/03/20 21:13 Dose: 1 each Documented by: Docusate Sodium (Docusate Sodium 100 Mg Capsule) 100 mg PO BID [facility] Last Admin: 09/03/20 19:22 Dose: Not Given Documented by: Enoxaparin Sodium (Enoxaparin 40 Mg/0.4 Ml Syringe) 40 mg SQ DAILY [facility] Last Admin: 09/03/20 08:18 Dose: 40 mg Documented by: Furosemide (Furosemide 40 Mg/4 Ml Vial) 40 mg IV BIDD [facility] Last Admin: 09/03/20 15:33 Dose: 40 mg Documented by: Gabapentin (Gabapentin 100 Mg Capsule) 100 mg PO TID [facility] Last Admin: 09/03/20 21:14 Dose: 100 mg Documented by: Glucose (Dextrose 31 Gm Oral.Susp) 15 gm PO PRN PRN PRN Reason: Hypoglycemia Hydralazine HCl (Hydralazine 20 Mg/Ml Vial) 10 mg IV Q4-6HP PRN PRN Reason: Hypertension Last Admin: 09/02/20 17:56 Dose: 10 mg Documented by: Insulin Human Lispro (Insulin Lispro 1 Unit/0.01 Ml Unit) 0 unit SQ ACHS [facility]; Protocol Last Admin: 09/03/20 21:14 Dose: 1 unit Documented by: Labetalol HCl (Labetalol 5 Mg/Ml Ml) 10 mg IV Q10M PRN PRN Reason: Hypertension Last Admin: 09/02/20 19:50 Dose: 10 mg Documented by: Lactulose (Lactulose 20 Gm/30 Ml Oral.Abbey) 10 gm PO DAILYP PRN PRN Reason: Constipation Losartan Potassium (Losartan 50 Mg Tablet) 100 mg PO DAILY [facility] Last Admin: 09/03/20 08:18 Dose: 100 mg Documented by: Ondansetron HCl (Ondansetron 4 Mg/2 Ml Vial) 4 mg IV Q4HP PRN; Protocol PRN Reason: Nausea And Vomiting Salmeterol Xinafoate (Salmeterol Xinafoate 1 Puff Inhaler) 1 puff INH BID [facility] Last Admin: 09/03/20 19:22 Dose: Not Given Documented by: Senna (Sennosides 1 Tablet) 2 tab PO HSP PRN PRN Reason: Constipation Simvastatin (Simvastatin 40 Mg Tablet) 40 mg PO HS [facility] Last Admin: 09/03/20 21:14 Dose: 40 mg Documented by: Sodium Chloride (0.9 % Sodium Chloride 10 Ml Syringe) 10 ml IV Q8 [facility] Last Admin: 09/04/20 05:33 Dose: 10 ml Documented by: Vitamin D (Vitamin D3 1,000 Unit Tablet) 2,000 unit PO DAILY [facility] Last Admin: 09/03/20 08:19 Dose: 2,000 unit Documented by: Vitamin E (Vitamin E (Dl,Tocopheryl Acet) 400 Unit Capsule) 800 unit PO DAILY [facility] Last Admin: 09/03/20 08:17 Dose: 800 unit Documented by: A/P Narrative A/P Narrative: Assessment: #Acute on chronic diastolic CHF: -good diuresis #Acute hypoxic respiratory failure: 2/2 above -on 1L NC #COPD(not currently on home o2): #Likely KAYLEN: #Possible pulmonary hypertension #Diabetes II w/neuropathy: diet controlled #HTN/HLD: #Chronic lower extremity wounds: #Obesity Plan -Lasix IV to PO, follow urine output and daily weight. -Follow renal function and electrolytes. -Low sodium diet. -Home Coreg/Losartan/Clonidine, PRN labetalol/hydralazine. -Continue home NOY/LABA -SSI -wound care/Dr. Kilgore -pt/ot -f/u with Pulm outpt -DVT ppx: lovenox Time Spent With Patient Time: Total time spent is greater than 50% in coordination of care (as documented) at patient's floor/unit and/or counseling patient: QUALITY VTE Deep Vein Thrombosis/Pulmonary Embolism Present on Admission: No
[2020-09-04] MEDS: DOCUSATE SODIUM 100 MG CAPSULE PO SCH (08:19)
[2020-09-04] MEDS: SALMETEROL XINAFOATE 1 PUFF INHALER INH SCH (08:20)
[2020-09-04] MEDS: VITAMIN E (DL,TOCOPHERYL ACET) 400 UNIT CAPSULE PO SCH (08:30)
[2020-09-04] MEDS: VITAMIN D3 1,000 UNIT TABLET PO SCH (08:31)
[2020-09-04] MEDS: GABAPENTIN 100 MG CAPSULE PO SCH (08:31)
[2020-09-04] MEDS: ENOXAPARIN 40 MG/0.4 ML SYRINGE SQ SCH (08:31)
[2020-09-04] MEDS: LOSARTAN 50 MG TABLET PO SCH (08:31)
[2020-09-04] MEDS: CARVEDILOL 12.5 MG TABLET PO SCH (08:31)
[2020-09-04] MEDS: cloNIDine HCL 0.1 MG TABLET PO SCH (08:31)
[2020-09-04] MEDS: ACETAMINOPHEN 500 MG TABLET PO PRN (08:37)
[2020-09-04] MEDS ORDERED: FUROSEMIDE 40 MG TABLET PO SCH (09:00)
--- NOTE | 2020-09-04 09:49 | Discharge Summary ---
Discharge Provider Provider Patient information: Note initiated : 09/04/20 at 9:47 am Service Date, if different from initiated Date: [] Patient: Cony Baig 69 y/o F admitted on 09/02/20 for SOB . Chief Complaint: [] Date of admission: 09/02/20 17:19 Discharge date: 09/04/20 Consults: 09/02/20 Consult to Physician [CONS] Stat Comment: Consulting Provider: Garo Grissom Reason For Exam: Physician to Consult 09/03/20 08:21 Consult to Physician [CONS] Routine Comment: Consulting Provider: Ronal Oseguera Reason For Exam: Physician to Consult Discharge Meds Discharge Medications Home Medications clonidine HCl 0.3 mg PO BID 04/28/16 [History Confirmed 09/02/20 Last Taken 04/03/19] gabapentin 100 mg PO TID #90 cap 07/04/17 [Rx Confirmed 09/02/20 Last Taken 04/02/19] losartan 25 mg tablet 100 mg PO QAM tab 07/25/19 [History Confirmed 09/02/20 Last Taken Unknown] lovastatin 40 mg tablet 80 mg PO DAILY tab 07/25/19 [History Confirmed 09/02/20 Last Taken Unknown] potassium chloride 10 mEq tablet,extended release 40 meq PO .4XW tab 07/25/19 [History Confirmed 09/02/20 Last Taken Unknown] carvedilol 25 mg tablet 25 mg PO BID tab 12/26/19 [History Confirmed 09/02/20 Last Taken Unknown] cholecalciferol (vitamin D3) 50 mcg (2,000 unit) capsule 50 mcg PO QDAY 12/26/19 [History Confirmed 09/02/20 Last Taken Unknown] vitamin E 200 unit capsule 800 unit PO QDAY 12/26/19 [History Confirmed 09/02/20 Last Taken Unknown] Serevent Diskus 1 inh INHALATION BID 09/02/20 [History Confirmed 09/02/20 Last Taken Unknown] albuterol sulfate [Ventolin HFA] 1 inh INHALATION QIDP PRN 09/02/20 [History Confirmed 09/02/20 Last Taken Unknown] furosemide 40 mg PO DAILY #30 tab 09/04/20 [Rx Last Taken Unknown] COURSE Hospital Course Hospital course: Interval history: Ms. Baig is a 69 year old female with a history of hypertension, diabetes mellitus 2, hyperlipidemia, diastolic heart failure, chronic lower extremity wounds, obesity who presented to the emergency depar tment for shortness of breath. Most likely reason for the shortness of breath is acute on chronic heart failure, the patient ran out of Lasix about a week ago and has become progressively more short of breath. She has not experienced any, no evidence of infectious process. Chest x-ray is consistent with mild CHF. The patient felt better after receiving Lasix IV in the emergency department. Patient was admitted for acute on chronic heart failure. CODE STATUS was discussed on admission, the patient wishes to be full code. 09/03 Feels better today, labs look ok, continue diuresis. Wound care following. 09/04 Feeling better today. Patient currently on room air but nurse says she has her off and on a liter. Patient does have COPD and states she is being considered for evaluation of home oxygen. No new complaints. Feeling back to normal. *Evaluated for home oxygen given underlying COPD and qualifies. Assessment: #Acute on chronic diastolic CHF: -good diuresis #Acute hypoxic respiratory failure: 2/ above -on 1L NC #COPD(not currently on home o2): #Likely KAYLEN: #Possible pulmonary hypertension #Diabetes II w/neuropathy: diet controlled #HTN/HLD: #Chronic lower extremity wounds: #Obesity Discharge diagnosis: aCute on chronic diastolic heart failure acute hypoxic respite failure COPD Secondary discharge diagnosis: Likely obstructive sleep apnea and pulmonary hypertension history of diabetes with neuropathy hypertension chronic lower extremity wounds obesity Time Spent with Patient Time attestation: Total time spent providing and/or coordinating discharge services: Time spent: Greater than 30 minutes EXAM Constitutional Vitals: Temp Pulse Resp BP Pulse Ox 97.3 F 67 22 132/69 85 L 09/04/20 08:01 09/04/20 08:01 09/04/20 08:17 09/04/20 08:01 09/04/20 09:12 Discharge Data Data Completed and Pending Labs on day of discharge: Labs from last 24 hours 09/04/20 05:50 Sodium 135 Potassium 3.8 Chloride 95 L Carbon Dioxide 30 Anion Gap 10.0 BUN 18 Creatinine 0.8 GFR Calculation 76 Glucose 116 H Uric Acid 8.1 H Calcium 9.0 Phosphorus 4.3 Magnesium 2.0 Total Bilirubin 0.4 Direct Bilirubin < 0.2 GGT 35 AST 13 ALT 7 Alkaline Phosphatase 61 Lactate Dehydrogenase 210 Total Protein 6.6 Albumin 3.6 Globulin 3.0 Albumin/Globulin Ratio 1.2 Triglycerides 374 H Discharge Plan Patient/Caregiver Discharge Instructions Activity: increase activity as tolerated Diet: Consistent Carbohydrate Instructions: Heart Failure (DC), Using Oxygen at Home (DC), Low-Sodium Diet (DC) Activity Restrictions/Additional Instructions: Follow-up with PCP. Phone consult on September 11 at 11:00AM with nurse Shira. Follow a diabetic diet. Limit salt intake. Referral to see pulmonology in 3 to 14 days for obstructive sleep apnea evaluation. [facility] will deliver O2 to your home at discharge. . Prescriptions: Continued cholecalciferol (vitamin D3) 50 mcg (2,000 unit) capsule 50 mcg PO QDAY RF: 0 vitamin E 200 unit capsule 800 unit PO QDAY RF: 0 carvedilol 25 mg tablet 25 mg PO BID RF: 0 clonidine HCl 0.3 MG tablet 0.3 mg PO BID RF: 0 potassium chloride 10 mEq tablet extended release 40 meq PO .4XW RF: 0 gabapentin 100 MG capsule 100 mg PO TID Qty: 90 RF: 0 losartan 25 mg tablet 100 mg PO QAM RF: 0 lovastatin 40 mg tablet 80 mg PO DAILY RF: 0 Serevent Diskus 50 mcg/dose blister with device 1 inh INHALATION BID RF: 0 albuterol sulfate [Ventolin HFA] 90 mcg/actuation HFA aerosol inhaler 1 inh INHALATION QIDP PRN (Reason: Shortness Of Breath) RF: 0 Changed furosemide 40 MG tablet 40 mg PO DAILY Qty: 30 RF: 0 Other Ambulatory Orders: Wound Care/Dressings (Routine) Location: None Selected Ordered By: Ronal Oseguera Follow Up Plan Follow up with: Ronal Oseguera MD [Physician] - 09/10/20 1:00 pm Nathan Garcia [Primary Care Provider] - 09/11/20 12:40 pm Patient Disposition: Home Health Service Prognosis: Fair Rehab Potential: Fair Overall status at discharge: patient is back to baseline Discharge Orders: Discharge Order (Routine); Ordered 09/04/20 Ordered By: Carlos Manuel VALDEZ VTE Deep Vein Thrombosis/Pulmonary Embolism Present on Admission: No
== END 2020-09-04 14:00 | disposition home health service (06) | DRG 291 ==
LOC: ED 10:49 → ICU 17:19
PROVIDERS: ADMIT Internal Medicine; ATTEND Internal Medicine

== ENCOUNTER 2022-01-16 03:19 | Inpatient (IN) ==
[2022-01-16] MEDS ORDERED: 0.9 % SODIUM CHLORIDE 1,000 ML IV ONE ×2 (03:40)
[2022-01-16] MEDS ORDERED: HYDROmorphone 1 MG/ML SYRINGE IV ONE ×2 (03:40→06:34)
[2022-01-16] MEDS ORDERED: 0.9 % SODIUM CHLORIDE 500 ML IV ONE (03:40)
[2022-01-16] MEDS ORDERED: cefTRIAXone 2 GM in DEXTROSE 5% IN WATER 50 ML IV ONE (03:43)
[2022-01-16] MEDS ORDERED: VANCOMYCIN 1,000 MG in 0.9 % SODIUM CHLORIDE 250 ML IV ONE (03:43)
[2022-01-16] MEDS ORDERED: ONDANSETRON 4 MG/2 ML VIAL IV ONE ×2 (03:43→06:25)
--- NOTE | 2022-01-16 03:51 | Emergency Department Note ---
Extremity Problem HPI General Chief complaint: Extremity Problem,Nontraumatic Stated complaint: lower extremity pain Time Seen by Provider: 01/16/22 03:40 Source: patient and EMS Mode of arrival: EMS Limitations: no limitations History of Present Illness HPI Narrative: Narrative: Patient presents to the ED via EMS with complaints of bilateral leg pain. Patient's bilateral lower extremities from the knees down to the ankle are covered in filthy dirty bandages that look like they have been on there for months. They are adhered to her skin. There are visible maggots and ants crawling out of the bandage. Patient rates bilateral leg pain 10/10. She states that she has not been able to see the doctor in 7 months because her sister was sick and dying of cancer. Patient has not been seen since leaving transitional care unit back in June 2021. Patient states she been try to take care of her wounds as best she can which is not very well. She denies fever, chills, nausea, vomiting. She states she can still move her toes and her feet but it hurts whenever she moves her legs. She states she been taking x-ray strength Tylenol for the pain but not receiving any relief. Patient denies any other alleviating or aggravating factors. Related Data Home Medications Medication Instructions Recorded Confirmed clonidine HCl 0.3 mg tablet 0.3 mg PO BID 04/28/16 01/16/22 losartan 25 mg tablet 100 mg PO QAM 07/25/19 11/18/20 lovastatin 40 mg tablet 80 mg PO DAILY 07/25/19 11/18/20 potassium chloride 10 mEq 40 meq PO .4XW 07/25/19 11/18/20 tablet,extended release carvedilol 25 mg tablet 25 mg PO BID 12/26/19 01/16/22 cholecalciferol (vitamin D3) 50 50 mcg PO QDAY 12/26/19 11/18/20 mcg (2,000 unit) capsule vitamin E 200 unit capsule 800 unit PO QDAY 12/26/19 11/18/20 albuterol sulfate 90 mcg/actuation 1 inh inhalation QIDP PRN 09/02/20 11/18/20 aerosol inhaler (Ventolin HFA) Shortness Of Breath salmeterol 50 mcg/dose blister 1 inh inhalation BID 09/02/20 11/18/20 powder for inhalation (Serevent Diskus) dapagliflozin 5 mg tablet (Danielxiga) 5 mg PO QAM 09/22/20 11/18/20 Previous Rx's Medication Instructions Recorded gabapentin 100 mg capsule 100 mg PO TID #90 caps 07/04/17 furosemide 40 mg tablet 40 mg PO DAILY #30 tabs 09/04/20 Allergies Allergy/AdvReac Type Severity Reaction Status Date / Time lidocaine AdvReac Intermediate Muscle Pain Verified 11/18/20 13:38 morphine AdvReac Intermediate Vomiting Verified 11/18/20 13:38 wool AdvReac Intermediate Rash Verified 11/18/20 13:38 acetaminophen [From [facility]] AdvReac Mild Vomiting Verified 11/18/20 13:38 adhesive tape AdvReac Mild Rash Verified 11/18/20 13:38 hydrocodone [From [facility]] AdvReac Mild Vomiting Verified 11/18/20 13:38 tramadol AdvReac Mild Vomiting Verified 11/18/20 13:38 Review of Systems ROS ROS Narrative: Narrative: All systems ED: reviewed and negative except as stated. PFSH Narrative Patient History Narrative: Narrative: Medical/Surgical/Family History All Active Problems (Updated 01/16/22 @ 06:43 by Sharath Vyas DO) Sepsis (Acute) Cellulitis (Acute) Cellulitis of left leg (Acute) Hypertensive urgency (Acute) Restrictive lung disease (Acute) Acute bilateral thoracic back pain (Acute) Contusion of back wall of thorax (Acute) Infected wound (Acute) Elevated lactic acid level (Acute) Non-compliance (Acute) Edema of both lower extremities (Acute) Acute exacerbation of CHF (congestive heart failure) (Acute) Acute exacerbation of chronic obstructive pulmonary disease (Acute) Hypoxia (Acute) Poor sleep hygiene (Chronic) Hypertension (Chronic) Nocturnal hypoxemia (Chronic) Pulmonary hypertension (Chronic) Dyspnea (Chronic) Bereavement (Chronic) Allergic rhinitis (Chronic) Foot pain (Chronic) Arthritis of hand (Chronic) Tenosynovitis of wrist (Chronic) Hypokalemia (Chronic) CKD (chronic kidney disease), stage III (Chronic) Obesity (Chronic) Urinary incontinence, mixed (Chronic) Open wound of lower limb (Chronic) Microalbuminuric diabetic nephropathy (Chronic) Peripheral venous insufficiency (Chronic) Ganglion of wrist (Chronic) Fecal occult blood test positive (Chronic) Hypertriglyceridemia (Chronic) CHF (congestive heart failure) (Chronic) Diastolic heart failure (Chronic) Morbid obesity (Chronic) Ulceration (Chronic) Pain in left leg (Chronic) Weakness (Chronic) Abnormal gait (Chronic) Calluse (Chronic) Urinary incontinence (Chronic) Intermittent claudication (Chronic) Edema, lower extremity (Chronic) Loss of taste (Chronic) Fatigue (Chronic) Anemia (Chronic) Osteoarthritis (Chronic) PVD (peripheral vascular disease) (Chronic) Hyperlipidemia (Chronic) DM II (diabetes mellitus, type II), controlled (Chronic) COPD (chronic obstructive pulmonary disease) (Chronic) Arthritis (Chronic) Allergic bronchitis (Chronic) SOB (shortness of breath) (Chronic) Cellulitis (Chronic) Edema extremities (Chronic) Diabetes (Chronic) Chronic hyperkalemia (Chronic) Venous stasis ulcer of both lower extremities without varicose veins (Chronic) Cellulitis and abscess of leg (Chronic) Diabetic ankle ulcer (Chronic) Asthma with exacerbation (Chronic) Dermatitis fungal (Chronic) CHF (congestive heart failure) (Chronic) Medical History Abnormal gait Allergic bronchitis Allergic rhinitis Anemia Arthritis Arthritis of hand Bereavement Calluse Cellulitis Patient already started on IV antibiotics Cellulitis and abscess of leg Excellent clinical improvement with chlorhexidene washes and topical skin moisturizer applications. CHF (congestive heart failure) Chronic hyperkalemia CKD (chronic kidney disease), stage III COPD (chronic obstructive pulmonary disease) Diabetes Diabetic ankle ulcer Diastolic heart failure DM II (diabetes mellitus, type II), controlled Dyspnea Edema extremities Will treat with spiral compression bandages and elevation of legs on pillows. Edema, lower extremity Fatigue Fecal occult blood test positive Foot pain Ganglion of wrist Hyperlipidemia Hypertriglyceridemia Hypokalemia Intermittent claudication Loss of taste Microalbuminuric diabetic nephropathy Morbid obesity Nocturnal hypoxemia Obesity Open wound of lower limb Osteoarthritis Knee Hip Pain in left leg Peripheral venous insufficiency Poor sleep hygiene PVD (peripheral vascular disease) Restrictive lung disease SOB (shortness of breath) Tenosynovitis of wrist Ulceration Bilateral Legs Urinary incontinence Urinary incontinence, mixed Venous stasis ulcer of both lower extremities without varicose veins Weakness Surgical History H/O skin graft left leg History of breast biopsy History of foot surgery History of hysterectomy History of rotator cuff surgery Family History Father Lung cancer Jaw cancer Diabetes Grandmother SC (myocardial infarction) Paternal HTN (hypertension) Paternal Family/Other Alzheimer's dementia Paternal Aunt Social History Smoking Status: Never smoker Alcohol Intake Frequency: does not drink Substance Use: does not use Exam Narrative Narrative: Narrative: General Limitations: no limitations General appearance: Present obese, tearful and other (Extremely poor hygiene) Respiratory Respiratory: Present normal lung sounds bilaterally; Absent respiratory distress Cardiovascular Cardiovascular: Present regular rate and normal rhythm Extremities Extremities: Present tenderness (Bilateral lower extremity) Expanded Lower Extremity Leg image: 1. Erythema with multiple ulcers ranging from stage II to stage III with some possible force. Visible maggots and ants within the wound 2. Erythema with multiple ulcers ranging from stage II to stage III with some possible force. Visible maggots and ants within the wound Neurovascular/Tendon: Present normal capillary refill Neurological Neurological: Present oriented X3 Psychiatric Psychiatric: Present serious and tearful Course Course Course Narrative: Patient was evaluated for bilateral leg pain. Physical examination patient has severely neglected bilateral lower extremity wound ulcers ranging from stage II to stage III with suspected stage IV. Bandages were removed and the areas were thoroughly cleansed. Got as many of the bugs itself as possible. Patient did meet sepsis criteria with tachycardia, tachypnea, elevated lactic acid source of infection just severe cellulitis with ulcers. Wound cultures were obtained as well as blood cultures. Patient was bolused IV fluids given IV antibiotics to include vancomycin and Rocephin. She was given Dilaudid for the pain. CT of the bilateral lower extremities were obtained which was negative for osteomyelitis. Patient will need to be admitted to the hospital. Patient blood pressure was elevated meeting hypertensive urgency criteria so she was given IV Lopressor and her blood pressure responded appropriately. Case discussed with hospitalist who has agreed to admit the patient. Reevaluation(s) Reevaluation #1: Patient remains hemodynamically stable. No new complaints at this time. Time: 04:43 Consultations Consultation #1: Case discussed with hospitalist who has agreed to admit the patient to Time: 07:00 Vital Signs Vital signs: Vital Signs Temperature 98.0 F 01/16/22 03:41 Oxygen Delivery Method 01/16/22 03:41 Temperature 98.0 F 01/16/22 03:41 Pulse Rate 98 H 01/16/22 06:15 Respiratory Rate 20 01/16/22 05:06 Blood Pressure 185/103 01/16/22 06:15 Pulse Oximetry (%) 98 01/16/22 06:15 Oxygen Delivery Method 01/16/22 05:06 Oxygen Flow Rate (L/min) 3 01/16/22 05:06 MDM MDM Narrative Medical decision making narrative: Narrative: Differential Diagnosis Differential Diagnosis: Sepsis, osteomyelitis, multiple lower extremity ulcers, cellulitis Medical Records Medical records reviewed: Yes I reviewed the patient's medical records. Lab Data Lab results reviewed: Yes I reviewed the patient's lab results. Result diagrams: 01/16/22 04:08 01/16/22 04:08 Labs: Lab Results 01/16/22 01/16/22 01/16/22 Range/Units 04:08 04:08 04:17 WBC 9.9 (4.5-11.0) K/mcL RBC 5.37 (3.59-5.38) M/mcL Hgb 13.6 (11.2-15.7) g/dL Hct 45.5 H (34.1-44.9) % MCV 84.7 (80.0-100.0) fL MCH 25.3 L (26.0-34.0) pg MCHC 29.9 L (31.0-36.0) g/dL RDW 17.4 H (11.5-14.5) % Plt Count 461 H (140-440) K/mcL MPV 8.5 (7.4-10.4) fL Immature Gran % (Auto) 0.3 (0.0-0.5) % Neut % (Auto) 70.7 (38.0-78.0) % Lymph % (Auto) 17.5 (15.5-49.0) % [place] % (Auto) 8.7 (1.0-12.0) % Eos % (Auto) 2.4 (0.0-7.0) % Baso % (Auto) 0.4 (0.0-2.0) % Lymph # (Auto) 1.73 (1.50-4.80) K/mcL [place] # (Auto) 0.86 (0.10-0.90) K/mcL Eos # (Auto) 0.24 (0.00-0.70) K/mcL Baso # (Auto) 0.04 (0.00-0.30) K/mcL Immature Gran # 0.03 (0.00-0.05) K/mcl Absolute Neutrophils 7.01 (1.80-8.00) K/mcL POC VBG pH 7.45 H (7.32-7.42) POC VBG pCO2 at Temp 40.1 L (41-51) POC VBG pO2 34 (25-40) POC VBG HCO3 27.6 (24-28) POC VBG Total CO2 29.0 (25-29) POC Venous O2 Sat 67.0 (40-70) POC VBG Base Excess 4.0 H* (-2-2) VBG Lactic Acid 2.5 H (0.5-2) Sodium 134 (133-145) mmol/L Potassium 4.5 (3.3-5.1) mmol/L Chloride 98 (96-108) mmol/L Carbon Dioxide 26 (22-30) mmol/L Anion Gap 10.0 (8.0-16.0) BUN 8 (8-23) mg/dL Creatinine 0.7 (0.6-1.1) mg/dL GFR Calculation 88 Glucose 173 H (70-105) mg/dL Calcium 8.8 (8.6-10.4) mg/dL Total Bilirubin 0.4 (0.1-1.0) mg/dL AST 7 (<32) U/L ALT < 5 (<40) U/L Alkaline Phosphatase 113 (39-117) U/L Total Protein 6.7 (5.9-8.4) gm/dL Albumin 2.6 L (3.2-5.2) gm/dL Globulin 4.1 H (2.2-3.7) gm/dL Albumin/Globulin Ratio 0.6 L (1.0-2.3) Core Measures AMI Core Measures Followed: Yes Discharge Plan Patient/Caregiver Discharge Instructions Pt seen by [employer] only: No Clinical Impression: Infected wound, Elevated lactic acid level, Diabetic ankle ulcer, Cellulitis of left leg, Hypertensive urgency Sepsis Qualifiers: Sepsis type: sepsis due to unspecified organism Sepsis acute organ dysfunction status: without acute organ dysfunction Qualified Code(s): A41.9 - Sepsis, unspecified organism Cellulitis Qualifiers: Site of cellulitis: extremity Site of cellulitis of extremity: lower extremity Laterality: right Qualified Code(s): L03.115 - Cellulitis of right lower limb Open wound of lower limb Qualifiers: Encounter type: initial encounter Laterality: bilateral Qualified Code(s): S81.801A - Unspecified open wound, right lower leg, initial encounter Patient Disposition: Xfer As Inpt ([facility]) Condition: Fair Follow up with: Nathan Garcia [Primary Care Provider] - Prescriptions: No Action cholecalciferol (vitamin D3) 50 mcg (2,000 unit) capsule 50 mcg PO QDAY vitamin E 200 unit capsule 800 unit PO QDAY carvedilol 25 mg tablet 25 mg PO BID Label Comments: TAKE 1 TABLET BY MOUTH TWICE DAILY FOR 90 DAYS Farxiga 5 mg tablet 5 mg PO QAM clonidine HCl 0.3 MG tablet 0.3 mg PO BID potassium chloride 10 mEq tablet extended release 40 meq PO .4XW Label Comments: Pt stated: MWF she takes 40 meq all at once gabapentin 100 MG capsule 100 mg PO TID Qty: 90 0RF losartan 25 mg tablet 100 mg PO QAM lovastatin 40 mg tablet 80 mg PO DAILY Serevent Diskus 50 mcg/dose blister with device 1 inh INHALATION BID Label Comments: INHALE 1 PUFF BY MOUTH TWICE DAILY albuterol sulfate [Ventolin HFA] 90 mcg/actuation HFA aerosol inhaler 1 inh INHALATION QIDP PRN (Reason: Shortness Of Breath) Label Comments: INHALE 1 PUFF BY MOUTH 4 TIMES DAILY NEEDED furosemide 40 MG tablet 40 mg PO DAILY Qty: 30 0RF
[2022-01-16 04:58] LABS: Basophils # (Auto) 0.04 K/mcL (0.00-0.30); Basophils % (Auto) 0.4 % (0.0-2.0); Eosinophils # (Auto) 0.24 K/mcL (0.00-0.70); Eosinophils % (Auto) 2.4 % (0.0-7.0); Hematocrit 45.5 % (34.1-44.9); Hemoglobin 13.6 g/dL (11.2-15.7); Lymphocytes # (Auto) 1.73 K/mcL (1.50-4.80); Lymphocytes % (Auto) 17.5 % (15.5-49.0); Mean Cell Volume 84.7 fL (80.0-100.0); Mean Corpuscular HGB Conc 29.9 g/dL (31.0-36.0); Mean Platelet Volume 8.5 fL (7.4-10.4); Monocytes # (Auto) 0.86 K/mcL (0.10-0.90); Monocytes % (Auto) 8.7 % (1.0-12.0); Neutrophils % (Auto) 70.7 % (38.0-78.0); Platelet Count 461 K/mcL (140-440); RBC 5.37 M/mcL (3.59-5.38); Red Cell Distribution Width 17.4 % (11.5-14.5); WBC 9.9 K/mcL (4.5-11.0)
[2022-01-16 05:19] LABS: ALT/SGPT < 5 U/L (<40); AST/SGOT 7 U/L (<32); Albumin 2.6 gm/dL (3.2-5.2); Albumin/Globulin Ratio 0.6 (1.0-2.3); Alkaline Phosphatase 113 U/L (39-117); Bilirubin,Total 0.4 mg/dL (0.1-1.0); Blood Urea Nitrogen 8 mg/dL (8-23); Calcium 8.8 mg/dL (8.6-10.4); Carbon Dioxide 26 mmol/L (22-30); Chloride 98 mmol/L (96-108); Globulin 4.1 gm/dL (2.2-3.7); Glomerular Filtration Rate 88; Glucose 173 mg/dL (70-105)
[2022-01-16] MEDS ORDERED: METOPROLOL TARTRATE 5 MG/5 ML VIAL IV ONE (06:42)
--- NOTE | 2022-01-16 07:43 | Cat Scan Report ---
INDICATION: Rule out osteomyelitis TECHNIQUE: Axial noncontrast enhanced images through the lower extremities. Sagittal and coronal reformatted images. COMPARISON: CT scan of the right lower extremity dated 08/22/2018 FINDINGS: Examination was initially interpreted by [facility]. Lower extremities were scanned from the knee to the ankle Tibia and fibula are negative bilaterally. No cortical destruction. No acute fracture. No evidence for osteomyelitis. There is extensive subcutaneous edema bilaterally. There is no focal abscess. No soft tissue gas or solid mass. Appearance is consistent with cellulitis, left worse than right. Vascular structures are not opacified as contrast material was not administered. There is no deep soft tissue mass or fluid collection to suggest compartment syndrome IMPRESSION: 1. Soft tissue edema bilaterally consistent with cellulitis. 2. No focal abscess or solid mass 3. No cortical destruction. No evidence for osteomyelitis Interpreted and Authenticated by: Rhys Cassidy 01/16/22
[2022-01-16] MEDS ORDERED: HYDROmorphone 0.5 MG/0.5 ML SYRINGE IV ONE (07:57)
--- NOTE | 2022-01-16 08:26 | Internal Med History&Physical ---
HPI History of Present Illness Patient information: Note initiated : 01/16/22 at 8:14 am Service Date, if different from initiated Date: [] Patient: Cony Baig a 71 y/o F admitted on for lower extremity pain. Chief Complaint: [] History of present illness: Ms. Baig is a 71 year old F Patient brought in by EMS for significant lower extremity wounds from the knees to the ankles. Patient lives in an RV and dressings were found to be covered in ants and the wound with maggots. Dressings were filthy and likely had not been changed for significant amount of time fact they were adhering to the skin. Ulcers found in the ER determined to be stage II to at least III. She has not seen a physician in 7 months, since she was discharged from a transitional care unit back in June. Patient called EMS because of increased leg pain. Complains of fevers and headache. Not sure if she took her blood pressure medications yesterday and did not take them this morning because she was in the ER. Review of Systems: Pertinent positives as above. Denies chills/nausea/vomiting/chest or abdominal pain/cough/dyspnea/diarrhea. Remaining 10 point review of system reviewed negative PFSH PFSH All Active Problems (Updated 01/16/22 @ 06:43 by Sharath Vyas DO) Sepsis (Acute) Cellulitis (Acute) Cellulitis of left leg (Acute) Hypertensive urgency (Acute) Restrictive lung disease (Acute) Acute bilateral thoracic back pain (Acute) Contusion of back wall of thorax (Acute) Infected wound (Acute) Elevated lactic acid level (Acute) Non-compliance (Acute) Edema of both lower extremities (Acute) Acute exacerbation of CHF (congestive heart failure) (Acute) Acute exacerbation of chronic obstructive pulmonary disease (Acute) Hypoxia (Acute) Poor sleep hygiene (Chronic) Hypertension (Chronic) Nocturnal hypoxemia (Chronic) Pulmonary hypertension (Chronic) Dyspnea (Chronic) Bereavement (Chronic) Allergic rhinitis (Chronic) Foot pain (Chronic) Arthritis of hand (Chronic) Tenosynovitis of wrist (Chronic) Hypokalemia (Chronic) CKD (chronic kidney disease), stage III (Chronic) Obesity (Chronic) Urinary incontinence, mixed (Chronic) Open wound of lower limb (Chronic) Microalbuminuric diabetic nephropathy (Chronic) Peripheral venous insufficiency (Chronic) Ganglion of wrist (Chronic) Fecal occult blood test positive (Chronic) Hypertriglyceridemia (Chronic) CHF (congestive heart failure) (Chronic) Diastolic heart failure (Chronic) Morbid obesity (Chronic) Ulceration (Chronic) Pain in left leg (Chronic) Weakness (Chronic) Abnormal gait (Chronic) Calluse (Chronic) Urinary incontinence (Chronic) Intermittent claudication (Chronic) Edema, lower extremity (Chronic) Loss of taste (Chronic) Fatigue (Chronic) Anemia (Chronic) Osteoarthritis (Chronic) PVD (peripheral vascular disease) (Chronic) Hyperlipidemia (Chronic) DM II (diabetes mellitus, type II), controlled (Chronic) COPD (chronic obstructive pulmonary disease) (Chronic) Arthritis (Chronic) Allergic bronchitis (Chronic) SOB (shortness of breath) (Chronic) Cellulitis (Chronic) Edema extremities (Chronic) Diabetes (Chronic) Chronic hyperkalemia (Chronic) Venous stasis ulcer of both lower extremities without varicose veins (Chronic) Cellulitis and abscess of leg (Chronic) Diabetic ankle ulcer (Chronic) Asthma with exacerbation (Chronic) Dermatitis fungal (Chronic) CHF (congestive heart failure) (Chronic) Medical History Abnormal gait Allergic bronchitis Allergic rhinitis Anemia Arthritis Arthritis of hand Bereavement Calluse Cellulitis Patient already started on IV antibiotics Cellulitis and abscess of leg Excellent clinical improvement with chlorhexidene washes and topical skin moisturizer applications. CHF (congestive heart failure) Chronic hyperkalemia CKD (chronic kidney disease), stage III COPD (chronic obstructive pulmonary disease) Diabetes Diabetic ankle ulcer Diastolic heart failure DM II (diabetes mellitus, type II), controlled Dyspnea Edema extremities Will treat with spiral compression bandages and elevation of legs on pillows. Edema, lower extremity Fatigue Fecal occult blood test positive Foot pain Ganglion of wrist Hyperlipidemia Hypertriglyceridemia Hypokalemia Intermittent claudication Loss of taste Microalbuminuric diabetic nephropathy Morbid obesity Nocturnal hypoxemia Obesity Open wound of lower limb Osteoarthritis Knee Hip Pain in left leg Peripheral venous insufficiency Poor sleep hygiene PVD (peripheral vascular disease) Restrictive lung disease SOB (shortness of breath) Tenosynovitis of wrist Ulceration Bilateral Legs Urinary incontinence Urinary incontinence, mixed Venous stasis ulcer of both lower extremities without varicose veins Weakness Surgical History H/O skin graft left leg History of breast biopsy History of foot surgery History of hysterectomy History of rotator cuff surgery Family History Father Lung cancer Jaw cancer Diabetes Grandmother NE (myocardial infarction) Paternal HTN (hypertension) Paternal Family/Other Alzheimer's dementia Paternal Aunt Social History household members: other lives independently: Yes marital status: pets and animals: Yes pets and animals: dog(s) sexually active: No alcohol intake frequency: does not drink substance use type: does not use seatbelt use: always working smoke detector in home: Yes firearms in home: No MEDS/ALLERGIES Home Medications and Allergies Home Medications Medication Instructions Recorded Confirmed Type clonidine HCl 0.3 mg tablet 0.3 mg PO BID 04/28/16 01/16/22 History gabapentin 100 mg capsule 100 mg PO TID #90 caps 07/04/17 01/16/22 Rx losartan 25 mg tablet 100 mg PO QAM 07/25/19 11/18/20 History lovastatin 40 mg tablet 80 mg PO DAILY 07/25/19 11/18/20 History potassium chloride 10 mEq 40 meq PO .4XW 07/25/19 11/18/20 History tablet,extended release carvedilol 25 mg tablet 25 mg PO BID 12/26/19 01/16/22 History cholecalciferol (vitamin D3) 50 50 mcg PO QDAY 12/26/19 11/18/20 History mcg (2,000 unit) capsule vitamin E 200 unit capsule 800 unit PO QDAY 12/26/19 11/18/20 History albuterol sulfate 90 mcg/actuation 1 inh inhalation QIDP PRN 09/02/20 11/18/20 History aerosol inhaler (Ventolin HFA) Shortness Of Breath salmeterol 50 mcg/dose blister 1 inh inhalation BID 09/02/20 11/18/20 History powder for inhalation (Serevent Diskus) furosemide 40 mg tablet 40 mg PO DAILY #30 tabs 09/04/20 11/18/20 Rx dapagliflozin 5 mg tablet (Farxiga) 5 mg PO QAM 09/22/20 11/18/20 History Allergies Allergy/AdvReac Type Severity Reaction Status Date / Time lidocaine AdvReac Intermediate Muscle Pain Verified 11/18/20 13:38 morphine AdvReac Intermediate Vomiting Verified 11/18/20 13:38 wool AdvReac Intermediate Rash Verified 11/18/20 13:38 acetaminophen [From [place]] AdvReac Mild Vomiting Verified 11/18/20 13:38 adhesive tape AdvReac Mild Rash Verified 11/18/20 13:38 hydrocodone [From [place]] AdvReac Mild Vomiting Verified 11/18/20 13:38 tramadol AdvReac Mild Vomiting Verified 11/18/20 13:38 EXAM Constitutional Vitals: Temp Pulse Resp BP Pulse Ox O2 Del Method O2 Flow Rate 98.0 F 99 H 20 153/82 97 3 01/16/22 03:41 01/16/22 08:00 01/16/22 05:06 01/16/22 08:00 01/16/22 08:00 01/16/22 05:06 01/16/22 05:06 Exam: General: Alert, Awake, No acute Distress, obese Eyes/N/T: EOMI, PERRL, MM Head/Neck: neck supple, normocephalic atraumatic CV: RRR, No murmurs, normal s1/s2 Pulm: Clear b/l, no wheezing/rhonchi/rales Abd: soft, nontender, +BS x4 Ext: b/l LE's with from knees to ankles with extenstive skin breakdown b/l and large ulcerated area R>L. Neuro: Alert, no focal deficits, moves all extremities, CN 2-12 grossly intact, symmetrical strength b/l upper/lower, sensations intact b/l upper/lower Skin: warm/dry DATA Data Completed and Pending Labs: Labs from last 24 hours 01/16/22 01/16/22 01/16/22 07:41 04:17 04:08 WBC RBC Hgb Hct MCV MCH MCHC RDW Plt Count MPV Immature Gran % (Auto) Neut % (Auto) Lymph % (Auto) [place] % (Auto) Eos % (Auto) Baso % (Auto) Lymph # (Auto) [place] # (Auto) Eos # (Auto) Baso # (Auto) Immature Gran # Absolute Neutrophils POC VBG pH 7.40 7.45 H POC VBG pCO2 at Temp 40.0 L 40.1 L POC VBG pO2 78 H 34 POC VBG HCO3 24.7 27.6 POC VBG Total CO2 26.0 29.0 POC Venous O2 Sat 95.0 H 67.0 POC VBG Base Excess 0 4.0 H* VBG Lactic Acid 1.2 2.5 H Sodium 134 Potassium 4.5 Chloride 98 Carbon Dioxide 26 Anion Gap 10.0 BUN 8 Creatinine 0.7 GFR Calculation 88 Glucose 173 H Calcium 8.8 Total Bilirubin 0.4 AST 7 ALT < 5 Alkaline Phosphatase 113 Total Protein 6.7 Albumin 2.6 L Globulin 4.1 H Albumin/Globulin Ratio 0.6 L 01/16/22 04:08 WBC 9.9 RBC 5.37 Hgb 13.6 Hct 45.5 H MCV 84.7 MCH 25.3 L MCHC 29.9 L RDW 17.4 H Plt Count 461 H MPV 8.5 Immature Gran % (Auto) 0.3 Neut % (Auto) 70.7 Lymph % (Auto) 17.5 [place]aufman % (Auto) 8.7 Eos % (Auto) 2.4 Baso % (Auto) 0.4 Lymph # (Auto) 1.73 [place]man # (Auto) 0.86 Eos # (Auto) 0.24 Baso # (Auto) 0.04 Immature Gran # 0.03 Absolute Neutrophils 7.01 POC VBG pH POC VBG pCO2 at Temp POC VBG pO2 POC VBG HCO3 POC VBG Total CO2 POC Venous O2 Sat POC VBG Base Excess VBG Lactic Acid Sodium Potassium Chloride Carbon Dioxide Anion Gap BUN Creatinine GFR Calculation Glucose Calcium Total Bilirubin AST ALT Alkaline Phosphatase Total Protein Albumin Globulin Albumin/Globulin Ratio A/P Narrative A/P Narrative: Assessment: #b/l LE diabetic chronic wounds/ulcers with infection/cellulitis: -h/o MSSA and Pseudomonas skin infections in past #sepsis w/Lactic acidosis: #HTN Urgency: #Generalized weakness/deconditioning/inability to care for self: #h/o diastolic(II) CHF: #COPD w/chronic hypoxic respiratory failure(O2@night and somtimes during day): #Likely KAYLEN: #Possible pulmonary hypertension #Diabetes II w/neuropathy: diet controlled #Obesity: BMI 39 Plan -Vanc/cefepime, pending WC/BC, mrsa screen -wound care consult -Home Coreg/Losartan/Clonidine, PRN labetalol/hydralazine. -Continue home IH's -SSI -pt/ot -CM for placement -Home medication reconciliation -DVT ppx: lovenox Time Spent With Patient Time: Total time spent is greater than 50% in coordination of care (as documented) at patient's floor/unit and/or counseling patient: Total time spent with greater than 50% in coordination of care (as documented) at patient's floor/unit and/or counseling patient:: 50 - 70 minutes
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
--- OUTSIDE RECORDS SUMMARY | 2022-01-16 08:30 | External Medical Summary ---
:[address] [facility] Address [address] [place] [id number] Care Team Providers Name Role Phone SALENA BERRIOS Unavailable Unavailable PROBLEMS Type Condition ICD9-CM Code [id number] Code Onset Condition SNO MED Code Dates Status Problem Essential I10 Active 80109721 (primary) hypertension Problem Morbid (severe) E66.01 Active 2381 70840 obesity due to excess calories Problem Chronic J41.1 Active 38544965 bronchitis with productive mucopurulent cough Problem Chronic diastolic I50.32 Active 88 784832 CHF (congestive heart failure) Problem Type 2 diabetes E11.9 Active 3134 03239 mellitus without complication, without long-term current use of insulin ALLERGIES Substance Reaction Event Type Date Status Morphine Sulfate stomach upset Drug Allergy Jul, Active Lidocaine Unknown Drug Allergy Jul, Active Tramadol HCl stomach upset Drug Allergy Jul, Active ENCOUNTERS Encounter [facility] Date [facility] Jul, Type 2 diabe asael mellitus Nursing ADRIANA, [place] without complica tion, [id number] without long-ter m current use of insulin E 11.9 ; Chronic diastoli c CHF (congestive hear t failure) I50.32 ; Morbid (severe) obesity due to e xcess calories E66.01 ; Essential (primary) hypert ension I10 ; Chronic bronch itis with productive mucop urulent cough J41.1 and Venous (peripheral) ins ufficiency I87.2 IMMUNIZATIONS No Known Immunizations SOCIAL HISTORY Never Assessed REASON FOR REFERRAL FUNCTIONAL STATUS PLAN OF CARE Activity Details Follow Up prn Reason: VITAL SIGNS Height 66 in 2020-08-04 Weight 267 lbs 2020-08-04 BMI 43.09 kg/m2 2020-08-04 Blood pressure systolic 147 2020-08-04 Blood pressure diastolic 74 2020-08-04 MEDICATIONS Medication Instructions Dosage Frequency Start Date End Date Duration S tatus See facility med Active list in pt docs PROCEDURES No Known procedures RESULTS No Results REASON FOR VISIT NHV Insurance Providers [facility] Health Member Patient Patient Patient Patient Patient Subscriber Subscriber Subscriber Group Insurance Plan Plan Plan Plan ID Relationship Address Phone Name Date of ID Name Date of No Type Insurance Insurance Insurance Coverage to Subscriber Address Phone Name Dates MEDICARE [phone] MEDICARE self [place] [id number] [place] [id number] [place] [id number] MEDICAID [phone] [place]ID self [place] [phone] [id number] OF ID EDS BOISE ID 57 [place] E[place] [id number]
[2022-01-16] MEDS ORDERED: diphenhydrAMINE 50 MG/ML VIAL IV PRN (08:33)
[2022-01-16] MEDS ORDERED: PROMETHAZINE 25 MG/ML VIAL IV PRN ×2 (08:33→09:40)
[2022-01-16] MEDS ORDERED: POTASSIUM CHLORIDE 20 MEQ TABLET PO PRN ×2 (09:40)
[2022-01-16] MEDS ORDERED: hydrALAZINE 20 MG/ML VIAL IV PRN (09:40)
[2022-01-16] MEDS ORDERED: ACETAMINOPHEN 325 MG TABLET PO PRN (09:40)
[2022-01-16] MEDS ORDERED: morphine 4 MG/ML VIAL IV PRN (09:40)
[2022-01-16] MEDS ORDERED: POTASSIUM CHLORIDE 40 MEQ in DEXTROSE 5% IN WATER 500 ML IV PRN (09:40)
[2022-01-16] MEDS ORDERED: SENNOSIDES 1 TABLET PO PRN (09:40)
[2022-01-16] MEDS ORDERED: METOCLOPRAMIDE 10 MG/2 ML VIAL IV PRN (09:40)
[2022-01-16] MEDS ORDERED: LABETALOL 5 MG/ML ML IV PRN (09:40)
[2022-01-16] MEDS ORDERED: VANCOMYCIN PER PHARMACY IV SCH (09:40)
[2022-01-16] MEDS ORDERED: ONDANSETRON 4 MG/2 ML VIAL IV PRN (09:40)
[2022-01-16] MEDS ORDERED: MAGNESIUM SULFATE 2 GM/50 ML BAG IV PRN (09:40)
[2022-01-16] MEDS ORDERED: POLYETHYLENE GLYCOL 3350 17 GM PACKET PO PRN (09:40)
[2022-01-16] MEDS ORDERED: IPRATROPIUM/ALBUTEROL 3 ML AMPUL.NEB NEB PRN (09:40)
[2022-01-16] MEDS ORDERED: DEXTROSE 31 GM ORAL.SUSP PO PRN (09:45)
[2022-01-16] MEDS ORDERED: DEXTROSE 50% 50 ML VIAL IV PRN (09:45)
[2022-01-16] MEDS: CEFEPIME 2 GM VIAL IV SCH ×3 (10:46→21:17)
[2022-01-16] MEDS: INSULIN LISPRO 1 UNIT/0.01 ML UNIT SQ SCH ×3 (12:22→21:02)
[2022-01-16 13:41] LABS: Appearance,Urine CLOUDY (Clear); Bacteria,Urine FEW /hpf (0); Bilirubin,Urine Negative (Negative); Color,Urine YELLOW; Culture Indicated,Urine No; Glucose,Urine (UA) Negative (Negative); Ketones,Urine Negative (Negative); Leukocyte Esterase,Urine Negative /uL (Negative); Mucus,Urine MOD /hpf; Nitrate,Urine Negative (Negative); Protein,Urine Negative (Negative); Specific Gravity,Urine 1.024 (1.000-1.035); Urine Blood 0.03 mg/dL (Negative); Urine Budding Yeast MOD /hpf; Urine RBC 5 /hpf (0-3); Urine Squamous Epithelial Cell 28 /hpf (0-4); Urine Transitional Epi Cells < 1 /hpf (0-2); Urine WBC 2 /hpf (0-4); Urobilinogen,Urine Negative
[2022-01-16] MEDS: HYDROcodone/APAP 5/325MG TABLET PO PRN ×2 (14:07→20:38)
[2022-01-16] MEDS: 0.9 % SODIUM CHLORIDE 10 ML SYRINGE IV SCH ×2 (14:15→21:19)
[2022-01-16] MEDS: VANCOMYCIN 1,000 MG in 0.9 % SODIUM CHLORIDE 250 ML IV SCH (17:01)
[2022-01-16] MEDS: DOCUSATE SODIUM 100 MG CAPSULE PO SCH (21:17)
[2022-01-17] MEDS: VANCOMYCIN 1,000 MG in 0.9 % SODIUM CHLORIDE 250 ML IV SCH (04:07)
[2022-01-17] MEDS: 0.9 % SODIUM CHLORIDE 10 ML SYRINGE IV SCH ×4 (04:21→20:56)
[2022-01-17] MEDS: CEFEPIME 2 GM VIAL IV SCH ×3 (06:07→20:55)
[2022-01-17 06:22] LABS: Basophils # (Auto) 0.05 K/mcL (0.00-0.30); Basophils % (Auto) 0.8 % (0.0-2.0); Eosinophils # (Auto) 0.24 K/mcL (0.00-0.70); Eosinophils % (Auto) 3.9 % (0.0-7.0); Hematocrit 41.9 % (34.1-44.9); Hemoglobin 11.8 g/dL (11.2-15.7); Lymphocytes # (Auto) 1.91 K/mcL (1.50-4.80); Lymphocytes % (Auto) 31.4 % (15.5-49.0); Mean Cell Volume 89.9 fL (80.0-100.0); Mean Corpuscular HGB Conc 28.2 g/dL (31.0-36.0); Mean Platelet Volume 9.2 fL (7.4-10.4); Monocytes # (Auto) 0.61 K/mcL (0.10-0.90); Neutrophils % (Auto) 53.2 % (38.0-78.0); Platelet Count 303 K/mcL (140-440); RBC 4.66 M/mcL (3.59-5.38); Red Cell Distribution Width 17.1 % (11.5-14.5); WBC 6.1 K/mcL (4.5-11.0)
[2022-01-17 06:43] LABS: ALT/SGPT < 5 U/L (<40); AST/SGOT 6 U/L (<32); Albumin 1.9 gm/dL (3.2-5.2); Albumin/Globulin Ratio 0.5 (1.0-2.3); Alkaline Phosphatase 95 U/L (39-117); Bilirubin,Direct < 0.2 mg/dL (0-0.3); Bilirubin,Total 0.2 mg/dL (0.1-1.0); Blood Urea Nitrogen 8 mg/dL (8-23); Calcium 8.4 mg/dL (8.6-10.4); Carbon Dioxide 25 mmol/L (22-30); Chloride 103 mmol/L (96-108); Globulin 3.6 gm/dL (2.2-3.7); Glomerular Filtration Rate 99; Glucose 111 mg/dL (70-105); Lactate Dehydrogenase 142 U/L (135-225); Phosphorous 3.3 mg/dL (2.5-4.5); Triglycerides 136 mg/dL (<150); Uric Acid 3.6 mg/dL (2.5-8.0)
[2022-01-17] MEDS ORDERED: ALBUTEROL SULFATE 200 PUFF INHALER INH PRN (06:56)
[2022-01-17] MEDS: cloNIDine HCL 0.1 MG TABLET PO SCH ×2 (08:05→20:54)
[2022-01-17] MEDS: LOSARTAN 50 MG TABLET PO SCH (08:05)
[2022-01-17] MEDS: GABAPENTIN 100 MG CAPSULE PO SCH ×3 (08:05→20:54)
[2022-01-17] MEDS: CARVEDILOL 12.5 MG TABLET PO SCH ×2 (08:05→17:15)
[2022-01-17] MEDS: SIMVASTATIN 40 MG TABLET PO SCH (08:06)
[2022-01-17] MEDS: INSULIN LISPRO 1 UNIT/0.01 ML UNIT SQ SCH ×4 (08:06→20:29)
[2022-01-17] MEDS: DOCUSATE SODIUM 100 MG CAPSULE PO SCH ×2 (08:06→20:54)
[2022-01-17] MEDS: HYDROcodone/APAP 5/325MG TABLET PO PRN ×3 (08:45→20:58)
[2022-01-17] MEDS ORDERED: LOVASTATIN 40 MG PO SCH (09:00)
[2022-01-17] MEDS ORDERED: 0.9 % SODIUM CHLORIDE 10 ML SYRINGE IV PRN (13:23)
--- NOTE | 2022-01-17 13:38 | General Surgery Consult Note ---
[facility] Data of Consult Consult date: 01/17/22 Requesting physician: Spring Francisco Primary Care Provider: Nathan Garcia Consult Narrative Reason for consult: Evaluation of stasis ulcerationOf bilateral lower extremity History of present illness: 71-year-old female who was admitted yesterday from the emergency room with evidence of severe bilateral lower extremity venous stasis disease with secondary infection and cellulitis and stage II-III ulceration.By history the patient had not been seen in over 7 months and presented with maggot infiltration of her wounds with copious drainage. Patient has been followed in the wound clinic at least since 2016 for these ulcerations. She has had multiple debridements in the past with removal of biofilm and according to records has been growing Pseudomonas as her primary organism but also has had Proteus, Enterobacter and methicillin sensitive Staph aureus.Patient now has very thick biofilm of her ulcerations and needs debridement. She carries a history of peripheral vascular disease but there is no reliable JUS to evaluate the vascularity of her lower extremities she does have severe venous stasis disease which appears to be the primary source of her ulceration. She has been treated with compression therapy and has had Versajet debridement in the past with good results. Reportedly her wound is healed the last year but she was lost to follow-up. She has diabetes Mellitus type II but has Not been followed adequately.Her presenting blood sugar was only 173. There is no recent A1c. cc:: CC: Carlos Manuel Frank [facility] PFS All Active Problems (Updated 01/17/22 @ 14:05 by Felisha Carrasco MD) History of congestive heart failure (Acute) Diabetes mellitus type 2 in obese (Acute) Stasis edema with ulcer of both lower extremities (Acute) Cellulitis of both lower extremities (Acute) Stasis dermatitis of left lower extremity due to peripheral venous hypertension (Acute) Sepsis (Acute) Cellulitis (Acute) Cellulitis of left leg (Acute) Hypertensive urgency (Acute) Restrictive lung disease (Acute) Acute bilateral thoracic back pain (Acute) Contusion of back wall of thorax (Acute) Infected wound (Acute) Elevated lactic acid level (Acute) Non-compliance (Acute) Edema of both lower extremities (Acute) Acute exacerbation of CHF (congestive heart failure) (Acute) Acute exacerbation of chronic obstructive pulmonary disease (Acute) Hypoxia (Acute) Poor sleep hygiene (Chronic) Hypertension (Chronic) Nocturnal hypoxemia (Chronic) Pulmonary hypertension (Chronic) Dyspnea (Chronic) Bereavement (Chronic) Allergic rhinitis (Chronic) Foot pain (Chronic) Arthritis of hand (Chronic) Tenosynovitis of wrist (Chronic) Hypokalemia (Chronic) CKD (chronic kidney disease), stage III (Chronic) Obesity (Chronic) Urinary incontinence, mixed (Chronic) Open wound of lower limb (Chronic) Microalbuminuric diabetic nephropathy (Chronic) Peripheral venous insufficiency (Chronic) Ganglion of wrist (Chronic) Fecal occult blood test positive (Chronic) Hypertriglyceridemia (Chronic) CHF (congestive heart failure) (Chronic) Diastolic heart failure (Chronic) Morbid obesity (Chronic) Ulceration (Chronic) Pain in left leg (Chronic) Weakness (Chronic) Abnormal gait (Chronic) Calluse (Chronic) Urinary incontinence (Chronic) Intermittent claudication (Chronic) Edema, lower extremity (Chronic) Loss of taste (Chronic) Fatigue (Chronic) Anemia (Chronic) Osteoarthritis (Chronic) PVD (peripheral vascular disease) (Chronic) Hyperlipidemia (Chronic) DM II (diabetes mellitus, type II), controlled (Chronic) COPD (chronic obstructive pulmonary disease) (Chronic) Arthritis (Chronic) Allergic bronchitis (Chronic) SOB (shortness of breath) (Chronic) Cellulitis (Chronic) Edema extremities (Chronic) Diabetes (Chronic) Chronic hyperkalemia (Chronic) Venous stasis ulcer of both lower extremities without varicose veins (Chronic) Cellulitis and abscess of leg (Chronic) Diabetic ankle ulcer (Chronic) Asthma with exacerbation (Chronic) Dermatitis fungal (Chronic) CHF (congestive heart failure) (Chronic) Medical History Abnormal gait Allergic bronchitis Allergic rhinitis Anemia Arthritis Arthritis of hand Bereavement Calluse Cellulitis Patient already started on IV antibiotics Cellulitis and abscess of leg Excellent clinical improvement with chlorhexidene washes and topical skin moisturizer applications. CHF (congestive heart failure) Chronic hyperkalemia CKD (chronic kidney disease), stage III COPD (chronic obstructive pulmonary disease) Diabetes Diabetic ankle ulcer Diastolic heart failure DM II (diabetes mellitus, type II), controlled Dyspnea Edema extremities Will treat with spiral compression bandages and elevation of legs on pillows. Edema, lower extremity Fatigue Fecal occult blood test positive Foot pain Ganglion of wrist Hyperlipidemia Hypertriglyceridemia Hypokalemia Intermittent claudication Loss of taste Microalbuminuric diabetic nephropathy Morbid obesity Nocturnal hypoxemia Obesity Open wound of lower limb Osteoarthritis Knee Hip Pain in left leg Peripheral venous insufficiency Poor sleep hygiene PVD (peripheral vascular disease) Restrictive lung disease SOB (shortness of breath) Tenosynovitis of wrist Ulceration Bilateral Legs Urinary incontinence Urinary incontinence, mixed Venous stasis ulcer of both lower extremities without varicose veins Weakness Surgical History H/O skin graft left leg History of breast biopsy History of foot surgery History of hysterectomy History of rotator cuff surgery Family History Father Lung cancer Jaw cancer Diabetes Grandmother VA (myocardial infarction) Paternal HTN (hypertension) Paternal Family/Other Alzheimer's dementia Paternal Aunt Social History household members: other lives independently: Yes marital status: pets and animals: Yes pets and animals: dog(s) sexually active: No alcohol intake frequency: does not drink substance use type: does not use seatbelt use: always working smoke detector in home: Yes firearms in home: No MEDS/ALLERGIES Home Medications and Allergies Home Medications Medication Instructions Recorded Confirmed Type clonidine HCl 0.3 mg tablet 0.3 mg PO BID 04/28/16 01/16/22 History gabapentin 100 mg capsule 100 mg PO TID #90 caps 07/04/17 01/16/22 Rx losartan 25 mg tablet 100 mg PO QAM 07/25/19 01/16/22 History lovastatin 40 mg tablet 80 mg PO DAILY 07/25/19 01/16/22 History potassium chloride 10 mEq 40 meq PO .4XW 07/25/19 01/16/22 History tablet,extended release carvedilol 25 mg tablet 25 mg PO BID 12/26/19 01/16/22 History vitamin E 200 unit capsule 800 unit PO QDAY 12/26/19 01/16/22 History albuterol sulfate 90 mcg/actuation 1 inh inhalation QIDP PRN 09/02/20 01/16/22 History aerosol inhaler (Ventolin HFA) Shortness Of Breath salmeterol 50 mcg/dose blister 1 inh inhalation BID 09/02/20 01/16/22 History powder for inhalation (Serevent Diskus) furosemide 40 mg tablet 40 mg PO DAILY #30 tabs 09/04/20 01/16/22 Rx dapagliflozin 5 mg tablet (Farxiga) 5 mg PO QAM 09/22/20 01/16/22 History Allergies Allergy/AdvReac Type Severity Reaction Status Date / Time lidocaine AdvReac Intermediate Muscle Pain Verified 11/18/20 13:38 morphine AdvReac Intermediate Vomiting Verified 11/18/20 13:38 wool AdvReac Intermediate Rash Verified 11/18/20 13:38 acetaminophen [From [place]] AdvReac Mild Vomiting Verified 11/18/20 13:38 adhesive tape AdvReac Mild Rash Verified 11/18/20 13:38 hydrocodone [From [place]] AdvReac Mild Vomiting Verified 11/18/20 13:38 tramadol AdvReac Mild Vomiting Verified 11/18/20 13:38 Physical Examination Vital Signs Vital signs: Temp Pulse Resp BP Pulse Ox O2 Del Method O2 Flow Rate 97.3 F 80 20 113/67 96 3 01/17/22 11:51 01/17/22 11:51 01/17/22 11:51 01/17/22 11:51 01/17/22 11:51 01/17/22 11:51 01/17/22 11:51 General physical appearance General physical exam: moderate pain, chronically ill and obese Eyes Eye exam: PERRL and normal ocular movement ENT ENT exam: other (Edentulous) Head Head exam IM: Present atraumatic, normal inspection and normocephalic Head exam expanded IM: Absent abrasion or general tenderness Neck Neck exam: no masses, no bruits and trachea midline Cardiovascular Cardiovascular exam IM: Present normal rate and rhythm and tachycardia (110) Respiratory Respiratory exam: other (Decreased breath sounds but no wheezes or rales) Abdomen Abdomen: Present soft, non tender and bowel sounds (Normal bowel sounds) Integumentary Integumentary: Present other Neurologic Neurologic: Present normal coordination Musculoskeletal Musculoskeletal: Present other (Gait and stance not tested) Psychiatric Psychiatric: Present oriented to time, oriented to person, oriented to place and speech is normal Additional Findings Additional exam: Bilateral severe stasis dermatitis and edema of the lower extremities extending from the 4-year-old dorsum of the foot bilaterally grade 2-3 ulcerations of both lower extremities, much more severe on right and on the left. Thick biofilm ulcers bilaterally with some evidence of healing. The drain putrid smelling drainage suggestive of Pseudomonas or gram-negative bacteria. Pulses palpable but weak and dorsalis pedis bilateral edema is 3-4+ bilateral. Patient has diffuse tenderness of her chest wall with a special tenderness noted in her lower rib cage over her costal cartilages. She denies having had any falls Results Labs Result diagrams: 01/17/22 05:22 01/17/22 05:22 Labs: Abnormal lab results 01/16/22 01/17/22 01/17/22 Range/Units 12:37 05:22 05:22 MCH 25.3 L (26.0-34.0) pg MCHC 28.2 L (31.0-36.0) g/dL RDW 17.1 H (11.5-14.5) % Immature Gran % (Auto) 0.7 H (0.0-0.5) % Anion Gap 7.0 L (8.0-16.0) Creatinine 0.5 L (0.6-1.1) mg/dL Glucose 111 H (70-105) mg/dL Calcium 8.4 L (8.6-10.4) mg/dL Total Protein 5.5 L (5.9-8.4) gm/dL Albumin 1.9 L (3.2-5.2) gm/dL Albumin/Globulin Ratio 0.5 L (1.0-2.3) Urine Appearance Cloudy A (Clear) Urine RBC 5 H (0-3) /hpf Ur Squamous Epith Cells 28 H (0-4) /hpf Urine Bacteria Few A (0) /hpf Urine Mucus Mod A (None) /hpf Urine Yeast (Budding) Mod A (None) /hpf Diabetes panel 01/17/22 Range/Units 05:22 Sodium 135 (133-145) mmol/L Potassium 4.3 (3.3-5.1) mmol/L Chloride 103 (96-108) mmol/L Carbon Dioxide 25 (22-30) mmol/L BUN 8 (8-23) mg/dL Creatinine 0.5 L (0.6-1.1) mg/dL Glucose 111 H (70-105) mg/dL Calcium 8.4 L (8.6-10.4) mg/dL AST 6 (<32) U/L ALT < 5 (<40) U/L Alkaline Phosphatase 95 (39-117) U/L Total Protein 5.5 L (5.9-8.4) gm/dL Albumin 1.9 L (3.2-5.2) gm/dL Triglycerides 136 (<150) mg/dL Calcium panel 01/17/22 Range/Units 05:22 Calcium 8.4 L (8.6-10.4) mg/dL Phosphorus 3.3 (2.5-4.5) mg/dL Albumin 1.9 L (3.2-5.2) gm/dL Pituitary panel 01/17/22 Range/Units 05:22 Sodium 135 (133-145) mmol/L Potassium 4.3 (3.3-5.1) mmol/L Chloride 103 (96-108) mmol/L Carbon Dioxide 25 (22-30) mmol/L BUN 8 (8-23) mg/dL Creatinine 0.5 L (0.6-1.1) mg/dL Glucose 111 H (70-105) mg/dL Calcium 8.4 L (8.6-10.4) mg/dL Adrenal panel 01/17/22 Range/Units 05:22 Sodium 135 (133-145) mmol/L Potassium 4.3 (3.3-5.1) mmol/L Chloride 103 (96-108) mmol/L Carbon Dioxide 25 (22-30) mmol/L BUN 8 (8-23) mg/dL Creatinine 0.5 L (0.6-1.1) mg/dL Glucose 111 H (70-105) mg/dL Calcium 8.4 L (8.6-10.4) mg/dL Total Bilirubin 0.2 (0.1-1.0) mg/dL AST 6 (<32) U/L ALT < 5 (<40) U/L Alkaline Phosphatase 95 (39-117) U/L Total Protein 5.5 L (5.9-8.4) gm/dL Albumin 1.9 L (3.2-5.2) gm/dL All other labs normal. A/P Assessment and plan (1) Stasis dermatitis of left lower extremity due to peripheral venous hypertens ion: Status: Acute (2) Cellulitis of both lower extremities: Status: Acute (3) Stasis edema with ulcer of both lower extremities: Status: Acute (4) Diabetes mellitus type 2 in obese: Status: Acute (5) History of congestive heart failure: Status: Acute (6) Restrictive lung disease: Status: Acute (7) Morbid obesity: Status: Chronic (8) COPD (chronic obstructive pulmonary disease): Status: Chronic Qualifiers: COPD type: unspecified COPD Qualified Code(s): J44.9 - Chronic obstructive pulmonary disease, unspecified Plan Patient will need debridement of her legs bilaterally Continue present antibiotics pending culture Arterial contrast studies to evaluate lower extremity perfusion . Bilateral rib detail for possible fracture Time Spent With Patient Time: Total time spent is greater than 50% in coordination of care (as documented) at patient's floor/unit and/or counseling patient:
--- NOTE | 2022-01-17 14:10 | Internal Med Progress Note ---
SUBJECTIVE Subjective Patient information: Note initiated : 01/17/22 at 2:03 pm Service Date, if different from initiated Date: [] Patient: Cony Baig 71 y/o F admitted on 01/16/22 for lower extremity pain. Chief Complaint: [Failure to thrive, bilateral circumferential wounds] Principal diagnosis: Severe bilateral LE wounds Interval history: The patient was resting comfortably in bed. She is pleasant and cooperative. The wound care nurse and RN were present at the bedside as her wounds were unwrapped and examined. Constitutional Vitals: Vital Signs Temp Pulse Resp BP Pulse Ox O2 Del Method O2 Flow Rate 97.3 F 80 20 113/67 96 3 01/17/22 11:51 01/17/22 11:51 01/17/22 11:51 01/17/22 11:51 01/17/22 11:51 01/17/22 11:51 01/17/22 11:51 Period Temp Pulse Resp BP Sys/Najera Pulse Ox O2 Del Method O2 Flow Rate Last 24 Hr 97.3 F-98.5 F 77-105 18-20 113-153/67-95 92-97 Nasal Cannula- Nasal Cannula 1-3 Intake and Output 01/17/22 01/17/22 01/17/22 05:59 13:59 21:59 Intake Total 100 250 Output Total 125 100 Balance -25 150 Intake & Output: Intake & Output 01/17/22 01/17/22 01/17/22 05:59 13:59 21:59 Intake Total 100 250 Output Total 125 100 Balance -25 150 Intake: IV 250 Vancomycin 1,000 mg In Sodium 250 Chloride 0.9% 250 ml @ 250 mls/ hr IV Q12H [facility] Rx#:[id number] Oral 100 Output: Void Amount 125 100 Other: Urine Color Dark Yellow Urine Odor Normal Head Head exam: Present atraumatic and normal inspection Eye Eye exam: Present normal appearance ENT ENT exam: Present mucous membranes moist, normal exam and normal external ear exam Neck Neck exam: Present normal inspection Respiratory Respiratory exam: Present normal respiratory exam Cardiovascular Cardiovascular exam: Present normal rate and rhythm GI/Abdominal GI/Abdominal exam: Present normal bowel sounds Expanded Lower Extremity Exam Lower leg exam: Present deformity and erythema; Absent normal inspection Back Exam Back exam: Present normal inspection Neurological Exam Neurological exam: Present alert and oriented X3 Skin Skin exam: Present intact and warm OBJ DATA Labs CBC & Chem 7: 01/17/22 05:22 01/17/22 05:22 Labs: Abnormal Lab Results 01/17/22 01/17/22 01/16/22 05:22 05:22 12:37 Hct MCH 25.3 L MCHC 28.2 L RDW 17.1 H Plt Count Immature Gran % (Auto) 0.7 H POC VBG pH POC VBG pCO2 at Temp POC VBG pO2 POC Venous O2 Sat POC VBG Base Excess VBG Lactic Acid Anion Gap 7.0 L Creatinine 0.5 L Glucose 111 H Calcium 8.4 L Total Protein 5.5 L Albumin 1.9 L Globulin Albumin/Globulin Ratio 0.5 L Urine Appearance Cloudy A Urine RBC 5 H Ur Squamous Epith Cells 28 H Urine Bacteria Few A Urine Mucus Mod A Urine Yeast (Budding) Mod A 01/16/22 01/16/22 01/16/22 07:41 04:17 04:08 Hct MCH MCHC RDW Plt Count Immature Gran % (Auto) POC VBG pH 7.45 H POC VBG pCO2 at Temp 40.0 L 40.1 L POC VBG pO2 78 H POC Venous O2 Sat 95.0 H POC VBG Base Excess 4.0 H* VBG Lactic Acid 2.5 H Anion Gap Creatinine Glucose 173 H Calcium Total Protein Albumin 2.6 L Globulin 4.1 H Albumin/Globulin Ratio 0.6 L Urine Appearance Urine RBC Ur Squamous Epith Cells Urine Bacteria Urine Mucus Urine Yeast (Budding) 01/16/22 04:08 Hct 45.5 H MCH 25.3 L MCHC 29.9 L RDW 17.4 H Plt Count 461 H Immature Gran % (Auto) POC VBG pH POC VBG pCO2 at Temp POC VBG pO2 POC Venous O2 Sat POC VBG Base Excess VBG Lactic Acid Anion Gap Creatinine Glucose Calcium Total Protein Albumin Globulin Albumin/Globulin Ratio Urine Appearance Urine RBC Ur Squamous Epith Cells Urine Bacteria Urine Mucus Urine Yeast (Budding) Meds: Medications Acetaminophen (Acetaminophen 325 Mg Tablet) 650 mg PO Q6HP PRN; Protocol PRN Reason: Per Pain Protocol/Fever > 101 Hydrocodone Bitart/Acetaminophen (Hydrocodone/Apap 5/325mg Tablet) 1 tab PO Q4HP PRN PRN Reason: PAIN LEVEL 3-6 Last Admin: 01/17/22 12:49 Dose: 1 tab Albuterol Sulfate (Albuterol Sulfate 200 Puff Inhaler) 1 puff INH QIDP PRN PRN Reason: Shortness Of Breath Albuterol/Ipratropium (Ipratropium/Albuterol 3 Ml Ampul.Neb) 3 ml NEB Q4HP PRN PRN Reason: Shortness Of Breath Car[facility] ([facility] 12.5 Mg [facility]) [facility] Last Admin: 01/17/22 08:05 Dose: 25 mg Cefepime HCl (Cefepime 2 Gm Vial) 2 gm IV Q8H [facility]; Protocol Last Admin: 01/17/22 06:07 Dose: 2 gm Clonidine HCl (Clonidine Hcl 0.1 Mg Tablet) 0.3 mg PO BID [facility] Last Admin: 01/17/22 08:05 Dose: 0.3 mg Dextrose (Dextrose 50% 50 Ml Vial) 0 ml IV UD PRN PRN Reason: Per Sliding Scale Diagnostic Test (Pha) (Accu-Chek 1 Each Strip) 1 each FS ACHS [facility] Last Admin: 01/17/22 11:52 Dose: 1 each Diphenhydramine HCl (Diphenhydramine 50 Mg/Ml Vial) 25 mg IV Q6HP PRN PRN Reason: Allergic Symptoms Last Admin: 01/16/22 08:45 Dose: 25 mg Docusate Sodium (Docusate Sodium 100 Mg Capsule) 100 mg PO BID [facility] Last Admin: 01/17/22 08:06 Dose: 100 mg Gabapentin (Gabapentin 100 Mg Capsule) 100 mg PO TID [facility] Last Admin: 01/17/22 08:05 Dose: 100 mg Glucose (Dextrose 31 Gm Oral.Susp) 15 gm PO PRN PRN PRN Reason: Hypoglycemia Heparin Sodium (Porcine) (Heparin Flush 10 Units/Ml 5 Ml Syringe) 2 ml IV Q12 [facility] Heparin Sodium (Porcine) (Heparin Flush 10 Units/Ml 5 Ml Syringe) 2 ml IV Q12 [facility] Hydralazine HCl (Hydralazine 20 Mg/Ml Vial) 0 mg IV Q2HP PRN PRN Reason: Hypertension Last Admin: 01/17/22 04:18 Dose: 20 mg Potassium Chloride 40 meq/ (Dextrose) 520 mls @ 130 mls/hr IV UD PRN PRN Reason: Potassium < 3 Magnesium Sulfate (Magnesium Sulfate) 2 gm in 50 mls @ 50 mls/hr IV UD PRN PRN Reason: Magnesium </= 1.6 Vancomycin HCl 1,000 mg/ (Sodium Chloride) 250 mls @ 250 mls/hr IV Q12H [facility] Last Infusion: 01/17/22 06:56 Dose: Infused Insulin Human Lispro (Insulin Lispro 1 Unit/0.01 Ml Unit) 0 unit SQ ACHS [facility]; Protocol Last Admin: 01/17/22 11:52 Dose: Not Given Labetalol HCl (Labetalol 5 Mg/Ml Ml) 0 mg IV Q2HP PRN PRN Reason: Hypertension Losartan Potassium (Losartan 50 Mg Tablet) 100 mg PO QAM [facility] Last Admin: 01/17/22 08:05 Dose: 100 mg Metoclopramide HCl (Metoclopramide 10 Mg/2 Ml Vial) 10 mg IV Q6HP PRN PRN Reason: Nausea And Vomiting Morphine Sulfate (Morphine 4 Mg/Ml Vial) 0 mg IV Q3HP PRN PRN Reason: Pain Ondansetron HCl (Ondansetron 4 Mg/2 Ml Vial) 4 mg IV Q4HP PRN PRN Reason: Nausea And Vomiting Polyethylene Glycol (Polyethylene Glycol 3350 17 Gm Packet) 17 gm PO DAILYP PRN PRN Reason: Constipation Potassium Chloride (Potassium Chloride 20 Meq Tablet) 40 meq PO UD PRN PRN Reason: Potssium is 3-3.5 Potassium Chloride (Potassium Chloride 20 Meq Tablet) 40 meq PO UD PRN PRN Reason: Potassium < 3 Promethazine HCl (Promethazine 25 Mg/Ml Vial) 12.5 mg IV Q6HP PRN PRN Reason: Nausea And Vomiting Senna (Sennosides 1 Tablet) 2 tab PO DAILYP PRN PRN Reason: Constipation Simvastatin (Simvastatin 40 Mg Tablet) 40 mg PO DAILY [facility] Last Admin: 01/17/22 08:06 Dose: 40 mg Sodium Chloride (0.9 % Sodium Chloride 10 Ml Syringe) 10 ml IV Q8 [facility] Last Admin: 01/17/22 04:21 Dose: 10 ml Sodium Chloride (0.9 % Sodium Chloride 10 Ml Syringe) 10 ml IV UD PRN PRN Reason: FLUSH Sodium Chloride (0.9 % Sodium Chloride 10 Ml Syringe) 10 ml IV Q12 [facility] Vancomycin HCl (Vancomycin Per Pharmacy) 1 order IV UD [facility]; Protocol A/P Assessment and plan (1) Venous stasis ulcer of both lower extremities without varicose veins: Status: Chronic (2) Cellulitis and abscess of leg: Status: Chronic Comment: Excellent clinical improvement with chlorhexidene washes and topical skin moisturizer applications. (3) COPD (chronic obstructive pulmonary disease): Status: Chronic Qualifiers: COPD type: unspecified COPD Qualified Code(s): J44.9 - Chronic obstructive pulmonary disease, unspecified (4) PVD (peripheral vascular disease): Status: Chronic (5) Diastolic heart failure: Status: Chronic Narrative A/P Narrative: Plan -Vanc/cefepime, pending WC/BC, mrsa screen -wound care consult -Home Coreg/Losartan/Clonidine, PRN labetalol/hydralazine. -Continue home IH's -SSI -pt/ot -CM for placement -Home medication reconciliation -DVT ppx: lovenox 01/17: The patient's wound culture reveals gram-negative bacillus and few gram- positive cocci in pairs. MRSA swab was negative and vancomycin will be discontinued. We will continue cefepime for the time being and may switch to Zosyn. The patient at this point requires aggressive wound care. General surgery been consulted for consideration of debridement. At this point, she is unable to look after herself and her RV as she was found to have maggots/ants in her wounds. She was found to be severely disheveled. APS report will be filed. Of note, we will repeat A1c to check the status of her diabetes mellitus type 2 as she is diet controlled. She also likely has COPD/KAYLEN and was requiring supplemental O2. Time Spent With Patient Time: Total time spent is greater than 50% in coordination of care (as documented) at patient's floor/unit and/or counseling patient: Total time spent with greater than 50% in coordination of care (as documented) at patient's floor/unit and/or counseling patient:: 35 - 50 minutes QUALITY Stroke Symptom Onset Unknown: No VTE Deep Vein Thrombosis/Pulmonary Embolism Present on Admission: No
--- NOTE | 2022-01-17 17:54 | XRay Report ---
INDICATION: PICC PLACEMENT TECHNIQUE: AP supine chest x-ray COMPARISON: Previous chest x-rays dated 09/02/2020, 07/18/2020 FINDINGS:Left-sided PICC line with its tip in the superior vena cava Lungs:No parenchymal consolidation or detectable mass Heart, vascular:There is cardiomegaly, unchanged. Pulmonary vascularity is prominent and there is probable interstitial pulmonary edema. Mediastinum, jose carlos:No mediastinal widening. No hilar mass Pleura:No pleural fluid. No pleural-based mass or calcification Skeletal:Negative. IMPRESSION: 1. Left-sided PICC line with its tip in the superior vena cava 2. Cardiomegaly and probable interstitial pulmonary edema Interpreted and Authenticated by: Rhys Cassidy 01/17/22
[2022-01-18] MEDS: 0.9 % SODIUM CHLORIDE 10 ML SYRINGE IV SCH ×5 (04:01→22:04)
[2022-01-18] MEDS: CEFEPIME 2 GM VIAL IV SCH ×3 (06:10→22:03)
[2022-01-18] MEDS ORDERED: methylPREDNISolone SOD SUCC 125 MG/2 ML VIAL IV ONE (07:00)
[2022-01-18] MEDS ORDERED: diphenhydrAMINE 50 MG/ML VIAL IV ONE (07:00)
[2022-01-18 07:49] LABS: C-Reactive Protein 5.2 mg/dL (0.03-0.80)
[2022-01-18 08:07] LABS: Hemoglobin A1C 7.1 % Hgb (4.0-6.0)
[2022-01-18] MEDS: GABAPENTIN 100 MG CAPSULE PO SCH ×3 (08:41→20:18)
[2022-01-18] MEDS: cloNIDine HCL 0.1 MG TABLET PO SCH ×2 (08:41→20:17)
[2022-01-18] MEDS: CARVEDILOL 12.5 MG TABLET PO SCH ×2 (08:41→17:10)
[2022-01-18] MEDS: LOSARTAN 50 MG TABLET PO SCH (08:41)
[2022-01-18] MEDS: DOCUSATE SODIUM 100 MG CAPSULE PO SCH ×2 (08:41→20:18)
[2022-01-18] MEDS: SIMVASTATIN 40 MG TABLET PO SCH (08:41)
[2022-01-18] MEDS: HYDROcodone/APAP 5/325MG TABLET PO PRN ×3 (08:42→22:58)
[2022-01-18] MEDS: INSULIN LISPRO 1 UNIT/0.01 ML UNIT SQ SCH ×4 (08:44→20:34)
[2022-01-18] MEDS ORDERED: IOPAMIDOL 125 ML BOTTLE IV ONE (08:48)
--- NOTE | 2022-01-18 09:16 | Cat Scan Report ---
INDICATION: left rib pain COMPARISON: None TECHNIQUE: Axial contrast enhanced images through the chest. Sagittally and coronally reformatted images. MIP reformatted images. 90ml Isovue 370 injected intravenously. FINDINGS: Suboptimal evaluation as this patient is unable to suspend respiration Lungs:No pulmonary parenchymal mass. There is nonspecific infiltrate in the dependent portions of both lungs and in the left lower lobe. Findings are most consistent with atelectasis. There is no parenchymal consolidation. No significant central lobular emphysema or paraseptal emphysema. No honeycombing or bronchiectasis. Mediastinum, vascular:Main pulmonary artery is enlarged and measures 3.8 cm in maximum cross-sectional diameter. Findings suggest pulmonary arterial hypertension. There are no intraluminal filling defects. Right and left pulmonary arteries are enlarged but without intraluminal filling defects. No lobar or segmental pulmonary emboli. There is atherosclerotic calcification of the thoracic aorta. There is no dissection. Descending thoracic aorta measures 4.1 cm in cross-sectional diameter consistent with ectasia. Origins of the left subclavian artery, left common carotid artery, innominate artery, right common carotid artery, right subclavian artery are negative. No significant stenosis No pathologic mediastinal or hilar lymphadenopathy Heart:There is cardiomegaly. No significant reflux of contrast material into the inferior vena cava or hepatic veins. Pleura:No significant pleural effusion. No pleural-based mass or calcification Axilla, supraclavicular regions, chest wall:No pathologic axillary or supraclavicular adenopathy. Musculoskeletal:No thoracic compression fracture or lytic lesion. No sternal or rib lesion Upper Abdomen:Abdominal and pelvic CT scan was performed. Results will be reported in a separate dictation IMPRESSION: 1. Mild pulmonary parenchymal density consistent with atelectasis 2. Enlarged pulmonary artery. Findings suggest pulmonary arterial hypertension. No pulmonary embolism 3. Mild atherosclerotic disease in the thoracic aorta. No dissection. Thoracic aorta is mildly enlarged consistent with ectasia of the ascending thoracic aorta. The exam was performed using radiation dose optimization techniques including, but not limited to, automated exposure control, adjustment of the mA and/or kV according to patient size and use of iterative reconstruction technique. Interpreted and Authenticated by: Rhys Cassidy 01/18/22
--- NOTE | 2022-01-18 13:21 | Internal Med Progress Note ---
SUBJECTIVE Subjective Patient information: Note initiated : 01/18/22 at 1:18 pm Service Date, if different from initiated Date: [] Patient: Cony Baig 71 y/o F admitted on 01/16/22 for lower extremity pain. Chief Complaint: [Bilateral circumferential lower extremity wounds] Principal diagnosis: Severe bilateral LE wounds Interval history: The patient was resting comfortably in bed. Her wounds were being dressed by the RN and manager entry this morning when I was at the bedside. Constitutional Vitals: Vital Signs Temp Pulse Resp BP Pulse Ox O2 Del Method O2 Flow Rate 97.0 F 81 18 114/67 96 3 01/18/22 12:00 01/18/22 12:00 01/18/22 12:00 01/18/22 12:00 01/18/22 12:00 01/18/22 12:00 01/18/22 12:00 Period Temp Pulse Resp BP Sys/Najera Pulse Ox O2 Del Method O2 Flow Rate Last 24 Hr 97.0 F-98.8 F 79-97 18-24 110-150/60-85 95-97 Nasal Cannula- Nasal Cannula 3-3 Intake and Output 01/17/22 01/18/22 01/18/22 21:59 05:59 13:59 Intake Total 300 480 500 Output Total 302 400 Balance 300 178 100 Weight 129.818 kg Intake & Output: Intake & Output 01/17/22 01/18/22 01/18/22 21:59 05:59 13:59 Intake Total 300 480 500 Output Total 302 400 Balance 300 178 100 Weight 129.818 kg Intake: Oral 300 480 500 Output: Void Amount 300 400 # of times incontinent of urine 2 Other: Meal Dinner Lunch Percent of Meal Consumed 50% 100% Feeding Ability Independent Independent Urine Appearance Clear Urine Color Bright Yellow Dark Yellow Urine Odor Normal Normal # Voids 1 General appearance: morbidly obese Head Head exam: Present atraumatic and normal inspection Eye Eye exam: Present normal appearance ENT ENT exam: Present mucous membranes moist, normal exam and normal external ear exam Neck Neck exam: Present normal inspection Respiratory Respiratory exam: Present normal respiratory exam Cardiovascular Cardiovascular exam: Present normal rate and rhythm GI/Abdominal GI/Abdominal exam: Present normal bowel sounds Back Exam Back exam: Present normal inspection Neurological Exam Neurological exam: Present alert and oriented X3 Skin Additional comments: Severe ulcerating wounds of both lower extremities extending from the knee down to the ankle OBJ DATA Labs CBC & Chem 7: 01/17/22 05:22 01/17/22 05:22 Labs: Abnormal Lab Results 01/18/22 01/17/22 01/17/22 06:04 05:22 05:22 Hct MCH 25.3 L MCHC 28.2 L RDW 17.1 H Plt Count Immature Gran % (Auto) 0.7 H POC VBG pH POC VBG pCO2 at Temp POC VBG pO2 POC Venous O2 Sat POC VBG Base Excess VBG Lactic Acid Anion Gap 7.0 L Creatinine 0.5 L Glucose 111 H Hemoglobin A1c 7.1 H Calcium 8.4 L C-Reactive Protein 5.20 H Total Protein 5.5 L Albumin 1.9 L Globulin Albumin/Globulin Ratio 0.5 L Urine Appearance Urine RBC Ur Squamous Epith Cells Urine Bacteria Urine Mucus Urine Yeast (Budding) 01/16/22 01/16/22 01/16/22 12:37 07:41 04:17 Hct MCH MCHC RDW Plt Count Immature Gran % (Auto) POC VBG pH 7.45 H POC VBG pCO2 at Temp 40.0 L 40.1 L POC VBG pO2 78 H POC Venous O2 Sat 95.0 H POC VBG Base Excess 4.0 H* VBG Lactic Acid 2.5 H Anion Gap Creatinine Glucose Hemoglobin A1c Calcium C-Reactive Protein Total Protein Albumin Globulin Albumin/Globulin Ratio Urine Appearance Cloudy A Urine RBC 5 H Ur Squamous Epith Cells 28 H Urine Bacteria Few A Urine Mucus Mod A Urine Yeast (Budding) Mod A 01/16/22 01/16/22 04:08 04:08 Hct 45.5 H MCH 25.3 L MCHC 29.9 L RDW 17.4 H Plt Count 461 H Immature Gran % (Auto) POC VBG pH POC VBG pCO2 at Temp POC VBG pO2 POC Venous O2 Sat POC VBG Base Excess VBG Lactic Acid Anion Gap Creatinine Glucose 173 H Hemoglobin A1c Calcium C-Reactive Protein Total Protein Albumin 2.6 L Globulin 4.1 H Albumin/Globulin Ratio 0.6 L Urine Appearance Urine RBC Ur Squamous Epith Cells Urine Bacteria Urine Mucus Urine Yeast (Budding) Meds: Medications Acetaminophen (Acetaminophen 325 Mg Tablet) 650 mg PO Q6HP PRN; Protocol PRN Reason: Per Pain Protocol/Fever > 101 Hydrocodone Bitart/Acetaminophen (Hydrocodone/Apap 5/325mg Tablet) 1 tab PO Q4H P PRN PRN Reason: PAIN LEVEL 3-6 Last Admin: 01/18/22 08:42 Dose: 1 tab Albuterol Sulfate (Albuterol Sulfate 200 Puff Inhaler) 1 puff INH QIDP PRN PRN Reason: Shortness Of Breath Albuterol/Ipratropium (Ipratropium/Albuterol 3 Ml Ampul.Neb) 3 ml NEB Q4HP PRN PRN Reason: Shortness Of Breath Carvedilol (Carvedilol 12.5 Mg Tablet) 25 mg PO BIDCC [facility] Last Admin: 01/18/22 08:41 Dose: 25 mg Cefepime HCl (Cefepime 2 Gm Vial) 2 gm IV Q8H [facility]; Protocol Last Admin: 01/18/22 06:10 Dose: 2 gm Clonidine HCl (Clonidine Hcl 0.1 Mg Tablet) 0.3 mg PO BID [facility] Last Admin: 01/18/22 08:41 Dose: 0.3 mg Dextrose (Dextrose 50% 50 Ml Vial) 0 ml IV UD PRN PRN Reason: Per Sliding Scale Diagnostic Test (Pha) (Accu-Chek 1 Each Strip) 1 each FS ACHS [facility] Last Admin: 01/18/22 11:42 Dose: 1 each Diphenhydramine HCl (Diphenhydramine 50 Mg/Ml Vial) 25 mg IV Q6HP PRN PRN Reason: Allergic Symptoms Last Admin: 01/16/22 08:45 Dose: 25 mg Docusate Sodium (Docusate Sodium 100 Mg Capsule) 100 mg PO BID [facility] Last Admin: 01/18/22 08:41 Dose: 100 mg Gabapentin (Gabapentin 100 Mg Capsule) 100 mg PO TID [facility] Last Admin: 01/18/22 08:41 Dose: 100 mg Glucose (Dextrose 31 Gm Oral.Susp) 15 gm PO PRN PRN PRN Reason: Hypoglycemia Heparin Sodium (Porcine) (Heparin Flush 10 Units/Ml 5 Ml Syringe) 2 ml IV Q12 [facility] Last Admin: 01/18/22 08:43 Dose: 2 ml Hydralazine HCl (Hydralazine 20 Mg/Ml Vial) 0 mg IV Q2HP PRN PRN Reason: Hypertension Last Admin: 01/17/22 04:18 Dose: 20 mg Potassium Chloride 40 meq/ (Dextrose) 520 mls @ 130 mls/hr IV UD PRN PRN Reason: Potassium < 3 Magnesium Sulfate (Magnesium Sulfate) 2 gm in 50 mls @ 50 mls/hr IV UD PRN PRN Reason: Magnesium </= 1.6 Insulin Human Lispro (Insulin Lispro 1 Unit/0.01 Ml Unit) 0 unit SQ ACHS [facility]; Protocol Last Admin: 01/18/22 11:42 Dose: 6 units Labetalol HCl (Labetalol 5 Mg/Ml Ml) 0 mg IV Q2HP PRN PRN Reason: Hypertension Losartan Potassium (Losartan 50 Mg Tablet) 100 mg PO QAM [facility] Last Admin: 01/18/22 08:41 Dose: 100 mg Metoclopramide HCl (Metoclopramide 10 Mg/2 Ml Vial) 10 mg IV Q6HP PRN PRN Reason: Nausea And Vomiting Morphine Sulfate (Morphine 4 Mg/Ml Vial) 0 mg IV Q3HP PRN PRN Reason: Pain Ondansetron HCl (Ondansetron 4 Mg/2 Ml Vial) 4 mg IV Q4HP PRN PRN Reason: Nausea And Vomiting Polyethylene Glycol (Polyethylene Glycol 3350 17 Gm Packet) 17 gm PO DAILYP PRN PRN Reason: Constipation Potassium Chloride (Potassium Chloride 20 Meq Tablet) 40 meq PO UD PRN PRN Reason: Potssium is 3-3.5 Potassium Chloride (Potassium Chloride 20 Meq Tablet) 40 meq PO UD PRN PRN Reason: Potassium < 3 Promethazine HCl (Promethazine 25 Mg/Ml Vial) 12.5 mg IV Q6HP PRN PRN Reason: Nausea And Vomiting Senna (Sennosides 1 Tablet) 2 tab PO DAILYP PRN PRN Reason: Constipation Simvastatin (Simvastatin 40 Mg Tablet) 40 mg PO DAILY [facility] Last Admin: 01/18/22 08:41 Dose: 40 mg Sodium Chloride (0.9 % Sodium Chloride 10 Ml Syringe) 10 ml IV Q8 [facility] Last Admin: 01/18/22 04:01 Dose: 10 ml Sodium Chloride (0.9 % Sodium Chloride 10 Ml Syringe) 10 ml IV UD PRN PRN Reason: FLUSH Sodium Chloride (0.9 % Sodium Chloride 10 Ml Syringe) 10 ml IV Q12 [facility] Last Admin: 01/18/22 08:43 Dose: Not Given A/P Assessment and plan (1) Venous stasis ulcer of both lower extremities without varicose veins: Status: Chronic (2) Cellulitis and abscess of leg: Status: Chronic Comment: Excellent clinical improvement with chlorhexidene washes and topical skin moisturizer applications. (3) COPD (chronic obstructive pulmonary disease): Status: Chronic Qualifiers: COPD type: unspecified COPD Qualified Code(s): J44.9 - Chronic obstructive pulmonary disease, unspecified (4) PVD (peripheral vascular disease): Status: Chronic (5) Diastolic heart failure: Status: Chronic Narrative A/P Narrative: Plan -Vanc/cefepime, pending WC/BC, mrsa screen -wound care consult -Home Coreg/Losartan/Clonidine, PRN labetalol/hydralazine. -Continue home IH's -SSI -pt/ot -CM for placement -Home medication reconciliation -DVT ppx: lovenox 01/17: The patient's wound culture reveals gram-negative bacillus and few gram- positive cocci in pairs. MRSA swab was negative and vancomycin will be discontinued. We will continue cefepime for the time being and may switch to Zosyn. The patient at this point requires aggressive wound care. General surgery been consulted for consideration of debridement. At this point, she is unable to look after herself and her RV as she was found to have maggots/ants in her wounds. She was found to be severely disheveled. APS report will be filed. Of note, we will repeat A1c to check the status of her diabetes mellitus type 2 as she is diet controlled. She also likely has COPD/KAYLEN and was requiring supplemental O2. 01/18: General surgery will likely be taking the patient to the OR today for debridement. CT of the lower extremities is pending. This is to better assess her vascular anatomy as a TBI was difficult to perform. Of note, the patient has a PICC in place due to poor vascular access and the likely need for long- term parenteral antibiotics. The patient stated that she was a diet-controlled diabetic however an A1c was checked and it was 7.1. She will need to be on insulin sliding scale. Time Spent With Patient Time: Total time spent is greater than 50% in coordination of care (as documented) at patient's floor/unit and/or counseling patient: Total time spent with greater than 50% in coordination of care (as documented) at patient's floor/unit and/or counseling patient:: 35 - 50 minutes QUALITY Stroke Symptom Onset Unknown: No VTE Deep Vein Thrombosis/Pulmonary Embolism Present on Admission: No
[2022-01-18] MEDS ORDERED: DEXTROSE 31 GM ORAL.SUSP PO PRN (13:22)
[2022-01-18] MEDS ORDERED: DEXTROSE 50% 50 ML VIAL IV PRN (13:22)
--- NOTE | 2022-01-18 15:24 | Cat Scan Report ---
INDICATION: venous status ulcers COMPARISON: None FINDINGS: Intravenous contrast was administered and 2 phase imaging was performed of the abdomen and pelvis with runoff multiplanar reformatting including MIPS imaging. The lower mediastinum and lungs are unremarkable. The liver, spleen, kidneys, adrenals, pancreas are within normal limits. Multiple gallstones are noted. The appendix is normal in the right lower quadrant. Uterus is been removed. Sigmoidal diverticular disease is noted without evidence of diverticulitis. There are several prominent lymph nodes inguinal region bilaterally. On the right largest lymph node group is 25 mm. In the left largest lymph node group is 27 mm. I'm not certain of significance. Angiographic findings: The celiac axis, SMA, and CLARENCE are widely patent. There is a small 3.2 cm fusiform abdominal aortic aneurysm. The renal arteries are patent bilaterally. There is mild stenosis of the left common iliac artery. There is a strong runoff of both superficial femoral arteries with mild atherosclerosis. The popliteal arteries and three-vessel runoff are normal bilaterally. IMPRESSION: No hemodynamically significant stenoses. Mild nonspecific adenopathy in the inguinal regions bilaterally. Interpreted and Authenticated by: Rambo Evans M.D. 01/18/22
[2022-01-18] MEDS ORDERED: INSULIN LISPRO 1 UNIT/0.01 ML UNIT SQ SCH (17:00)
[2022-01-19] MEDS: 0.9 % SODIUM CHLORIDE 10 ML SYRINGE IV SCH ×5 (06:13→22:25)
[2022-01-19] MEDS: CEFEPIME 2 GM VIAL IV SCH ×3 (06:13→22:23)
--- NOTE | 2022-01-19 07:40 | Internal Med Progress Note ---
SUBJECTIVE Subjective Patient information: Note initiated : 01/19/22 at 7:36 am Service Date, if different from initiated Date: [] Patient: Cony Baig 71 y/o F admitted on 01/16/22 for lower extremity pain. Chief Complaint: [Bilateral ulcerating circumferential wounds] Principal diagnosis: Severe bilateral LE wounds Interval history: The patient was resting comfortably in bed. She had no active complaints or concerns. Constitutional Vitals: Vital Signs Temp Pulse Resp BP Pulse Ox O2 Del Method O2 Flow Rate 96.7 F L 71 18 137/70 98 2.5 01/19/22 03:53 01/19/22 03:53 01/19/22 03:53 01/19/22 03:53 01/19/22 03:53 01/19/22 03:53 01/19/22 06:20 Period Temp Pulse Resp BP Sys/Najera Pulse Ox O2 Del Method O2 Flow Rate Last 24 Hr 96.7 F-98.3 F 71-82 18-20 114-145/59-81 93-98 Nasal Cannula- Nasal Cannula 2.5-3 Intake and Output 01/18/22 01/19/22 01/19/22 21:59 05:59 13:59 Intake Total 480 690 Output Total 250 725 400 Balance 230 -35 -400 Weight 124.33 kg Intake & Output: Intake & Output 01/18/22 01/19/22 01/19/22 21:59 05:59 13:59 Intake Total 480 690 Output Total 250 725 400 Balance 230 -35 -400 Weight 124.33 kg Intake: Oral 480 690 Output: Void Amount 250 725 400 # of times incontinent of urine 0 Other: Meal Dinner Percent of Meal Consumed 100% Feeding Ability Assist with Tray Set Up Urine Appearance Clear Clear Clear Urine Color Bright Yellow Bright Yellow Bright Yellow # Voids 0 General appearance: morbidly obese Head Head exam: Present atraumatic and normal inspection Eye Eye exam: Present normal appearance ENT ENT exam: Present mucous membranes moist, normal exam and normal external ear exam Neck Neck exam: Present normal inspection Respiratory Respiratory exam: Present normal respiratory exam Cardiovascular Cardiovascular exam: Present normal rate and rhythm GI/Abdominal GI/Abdominal exam: Present normal bowel sounds Back Exam Back exam: Present normal inspection Neurological Exam Neurological exam: Present alert and oriented X3 Skin Skin exam: Present intact and warm OBJ DATA Labs CBC & Chem 7: 01/17/22 05:22 01/17/22 05:22 Labs: Abnormal Lab Results 01/18/22 01/17/22 01/17/22 06:04 05:22 05:22 MCH 25.3 L MCHC 28.2 L RDW 17.1 H Immature Gran % (Auto) 0.7 H POC VBG pCO2 at Temp POC VBG pO2 POC Venous O2 Sat Anion Gap 7.0 L Creatinine 0.5 L Glucose 111 H Hemoglobin A1c 7.1 H Calcium 8.4 L C-Reactive Protein 5.20 H Total Protein 5.5 L Albumin 1.9 L Albumin/Globulin Ratio 0.5 L Urine Appearance Urine RBC Ur Squamous Epith Cells Urine Bacteria Urine Mucus Urine Yeast (Budding) 01/16/22 01/16/22 12:37 07:41 MCH MCHC RDW Immature Gran % (Auto) POC VBG pCO2 at Temp 40.0 L POC VBG pO2 78 H POC Venous O2 Sat 95.0 H Anion Gap Creatinine Glucose Hemoglobin A1c Calcium C-Reactive Protein Total Protein Albumin Albumin/Globulin Ratio Urine Appearance Cloudy A Urine RBC 5 H Ur Squamous Epith Cells 28 H Urine Bacteria Few A Urine Mucus Mod A Urine Yeast (Budding) Mod A Meds: Medications Acetaminophen (Acetaminophen 325 Mg Tablet) 650 mg PO Q6HP PRN; Protocol PRN Reason: Per Pain Protocol/Fever > 101 Hydrocodone Bitart/Acetaminophen (Hydrocodone/Apap 5/325mg Tablet) 1 tab PO Q4HP PRN PRN Reason: PAIN LEVEL 3-6 Last Admin: 01/18/22 22:58 Dose: 1 tab Albuterol Sulfate (Albuterol Sulfate 200 Puff Inhaler) 1 puff INH QIDP PRN PRN Reason: Shortness Of Breath Albuterol/Ipratropium (Ipratropium/Albuterol 3 Ml Ampul.Neb) 3 ml NEB Q4HP PRN PRN Reason: Shortness Of Breath Carvedilol (Carvedilol 12.5 Mg Tablet) 25 mg PO BIDCC [facility] Last Admin: 01/18/22 17:10 Dose: 25 mg Cefepime HCl (Cefepime 2 Gm Vial) 2 gm IV Q8H [facility]; Protocol Last Admin: 01/19/22 06:13 Dose: 2 gm Clonidine HCl (Clonidine Hcl 0.1 Mg Tablet) 0.3 mg PO BID [facility] Last Admin: 01/18/22 20:17 Dose: 0.3 mg Dextrose (Dextrose 50% 50 Ml Vial) 0 ml IV UD PRN PRN Reason: Per Sliding Scale Dextrose (Dextrose 50% 50 Ml Vial) 0 ml IV UD PRN PRN Reason: Per Sliding Scale Diagnostic Test (Pha) (Accu-Chek 1 Each Strip) 1 each FS ACHS [facility] Last Admin: 01/18/22 20:17 Dose: 1 each Diphenhydramine HCl (Diphenhydramine 50 Mg/Ml Vial) 25 mg IV Q6HP PRN PRN Reason: Allergic Symptoms Last Admin: 01/16/22 08:45 Dose: 25 mg Docusate Sodium (Docusate Sodium 100 Mg Capsule) 100 mg PO BID [facility] Last Admin: 01/18/22 20:18 Dose: 100 mg Gabapentin (Gabapentin 100 Mg Capsule) 100 mg PO TID [facility] Last Admin: 01/18/22 20:18 Dose: 100 mg Glucose (Dextrose 31 Gm Oral.Susp) 15 gm PO PRN PRN PRN Reason: Hypoglycemia Glucose (Dextrose 31 Gm Oral.Susp) 15 gm PO PRN PRN PRN Reason: Hypoglycemia Heparin Sodium (Porcine) (Heparin Flush 10 Units/Ml 5 Ml Syringe) 2 ml IV Q12 [facility] Last Admin: 01/18/22 20:19 Dose: 2 ml Hydralazine HCl (Hydralazine 20 Mg/Ml Vial) 0 mg IV Q2HP PRN PRN Reason: Hypertension Last Admin: 01/17/22 04:18 Dose: 20 mg Potassium Chloride 40 meq/ (Dextrose) 520 mls @ 130 mls/hr IV UD PRN PRN Reason: Potassium < 3 Magnesium Sulfate (Magnesium Sulfate) 2 gm in 50 mls @ 50 mls/hr IV UD PRN PRN Reason: Magnesium </= 1.6 Insulin Human Lispro (Insulin Lispro 1 Unit/0.01 Ml Unit) 0 unit SQ [facility]; Protocol Last Admin: 01/18/22 20:34 Dose: 4 units Labetalol HCl (Labetalol 5 Mg/Ml Ml) 0 mg IV Q2HP PRN PRN Reason: Hypertension Losartan Potassium (Losartan 50 Mg Tablet) 100 mg PO QAM [facility] Last Admin: 01/18/22 08:41 Dose: 100 mg Metoclopramide HCl (Metoclopramide 10 Mg/2 Ml Vial) 10 mg IV Q6HP PRN PRN Reason: Nausea And Vomiting Morphine Sulfate (Morphine 4 Mg/Ml Vial) 0 mg IV Q3HP PRN PRN Reason: Pain Ondansetron HCl (Ondansetron 4 Mg/2 Ml Vial) 4 mg IV Q4HP PRN PRN Reason: Nausea And Vomiting Polyethylene Glycol (Polyethylene Glycol 3350 17 Gm Packet) 17 gm PO DAILYP PRN PRN Reason: Constipation Potassium Chloride (Potassium Chloride 20 Meq Tablet) 40 meq PO UD PRN PRN Reason: Potssium is 3-3.5 Potassium Chloride (Potassium Chloride 20 Meq Tablet) 40 meq PO UD PRN PRN Reason: Potassium < 3 Promethazine HCl (Promethazine 25 Mg/Ml Vial) 12.5 mg IV Q6HP PRN PRN Reason: Nausea And Vomiting Senna (Sennosides 1 Tablet) 2 tab PO DAILYP PRN PRN Reason: Constipation Simvastatin (Simvastatin 40 Mg Tablet) 40 mg PO DAILY [facility] Last Admin: 01/18/22 08:41 Dose: 40 mg Sodium Chloride (0.9 % Sodium Chloride 10 Ml Syringe) 10 ml IV Q8 [facility] Last Admin: 01/19/22 06:13 Dose: 10 ml Sodium Chloride (0.9 % Sodium Chloride 10 Ml Syringe) 10 ml IV UD PRN PRN Reason: FLUSH Sodium Chloride (0.9 % Sodium Chloride 10 Ml Syringe) 10 ml IV Q12 [facility] Last Admin: 01/18/22 20:18 Dose: 10 ml A/P Assessment and plan (1) Venous stasis ulcer of both lower extremities without varicose veins: Status: Chronic (2) Cellulitis and abscess of leg: Status: Chronic Comment: Excellent clinical improvement with chlorhexidene washes and topical skin moisturizer applications. (3) COPD (chronic obstructive pulmonary disease): Status: Chronic Qualifiers: COPD type: unspecified COPD Qualified Code(s): J44.9 - Chronic obstructive pulmonary disease, unspecified (4) PVD (peripheral vascular disease): Status: Chronic (5) Diastolic heart failure: Status: Chronic Narrative A/P Narrative: Plan -Vanc/cefepime, pending WC/BC, mrsa screen -wound care consult -Home Coreg/Losartan/Clonidine, PRN labetalol/hydralazine. -Continue home IH's -SSI -pt/ot -CM for placement -Home medication reconciliation -DVT ppx: lovenox 01/17: The patient's wound culture reveals gram-negative bacillus and few gram- positive cocci in pairs. MRSA swab was negative and vancomycin will be discontinued. We will continue cefepime for the time being and may switch to Zosyn. The patient at this point requires aggressive wound care. General surgery been consulted for consideration of debridement. At this point, she is unable to look after herself and her RV as she was found to have maggots/ants in her wounds. She was found to be severely disheveled. APS report will be filed. Of note, we will repeat A1c to check the status of her diabetes mellitus type 2 as she is diet controlled. She also likely has COPD/KAYLEN and was requiring supplemental O2. 01/18: General surgery will likely be taking the patient to the OR today for debridement. CT of the lower extremities is pending. This is to better assess her vascular anatomy as a TBI was difficult to perform. Of note, the patient has a PICC in place due to poor vascular access and the likely need for long- term parenteral antibiotics. The patient stated that she was a diet-controlled diabetic however an A1c was checked and it was 7.1. She will need to be on insulin sliding scale. 01/19: CTA did not reveal severe stenotic atherosclerotic disease of the lower extremities. There is no evidence of PVD which is reassuring. Continue empiric antibiotic coverage, wound care and have general surgery follow-up for debridement of her lower extremity wounds. The patient will be needing placement to senior care facility as she is unable to look after herself at home in her RV. Time Spent With Patient Time: Total time spent is greater than 50% in coordination of care (as documented) at patient's floor/unit and/or counseling patient: Total time spent with greater than 50% in coordination of care (as documented) at patient's floor/unit and/or counseling patient:: 25 - 35 minutes QUALITY Stroke Symptom Onset Unknown: No VTE Deep Vein Thrombosis/Pulmonary Embolism Present on Admission: No
[2022-01-19] MEDS: INSULIN LISPRO 1 UNIT/0.01 ML UNIT SQ SCH ×4 (08:05→22:25)
[2022-01-19] MEDS: SIMVASTATIN 40 MG TABLET PO SCH (08:07)
[2022-01-19] MEDS: DOCUSATE SODIUM 100 MG CAPSULE PO SCH ×2 (08:07→22:25)
[2022-01-19] MEDS: cloNIDine HCL 0.1 MG TABLET PO SCH ×2 (08:07→22:24)
[2022-01-19] MEDS: LOSARTAN 50 MG TABLET PO SCH (08:07)
[2022-01-19] MEDS: GABAPENTIN 100 MG CAPSULE PO SCH ×3 (08:07→22:25)
[2022-01-19] MEDS: CARVEDILOL 12.5 MG TABLET PO SCH ×2 (08:07→16:52)
--- NOTE | 2022-01-19 10:08 | General Surgery Consult Note ---
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 She has had longstanding issues with this problem with multiple past Wound Care Clinic visits and is a well known patient of Dr Oseguera. She was apparently at a point of fairly good healing roughly a year ago at a point when she had good compliance with her care. More recently she has began to have poorly c ontrolled edema again and has developed bilateral open wounds with extensive weeping and came into the ER several days ago with gross wound contamination including maggot infestation. Since that time she has been getting bedside topical care with our wound team, IV ABs and edema retardant measures. She has known CHF and is currently 02 dependent. cc:: CC: Carlos Manuel Frank Review of Systems Review of systems: Review of Systems: Pertinent positives as above. Denies chills/nausea/vomiting/chest or abdominal pain/cough/dyspnea/diarrhea. Remaining 10 point review of system reviewed negative PFSH PFSH All Active Problems (Updated 01/17/22 @ 14:05 by Felisha Carrasco MD) History of congestive heart failure (Acute) Diabetes mellitus type 2 in obese (Acute) Stasis edema with ulcer of both lower extremities (Acute) Cellulitis of both lower extremities (Acute) Stasis dermatitis of left lower extremity due to peripheral venous hypertension (Acute) Sepsis (Acute) Cellulitis (Acute) Cellulitis of left leg (Acute) Hypertensive urgency (Acute) Restrictive lung disease (Acute) Acute bilateral thoracic back pain (Acute) Contusion of back wall of thorax (Acute) Infected wound (Acute) Elevated lactic acid level (Acute) Non-compliance (Acute) Edema of both lower extremities (Acute) Acute exacerbation of CHF (congestive heart failure) (Acute) Acute exacerbation of chronic obstructive pulmonary disease (Acute) Hypoxia (Acute) Poor sleep hygiene (Chronic) Hypertension (Chronic) Nocturnal hypoxemia (Chronic) Pulmonary hypertension (Chronic) Dyspnea (Chronic) Bereavement (Chronic) Allergic rhinitis (Chronic) Foot pain (Chronic) Arthritis of hand (Chronic) Tenosynovitis of wrist (Chronic) Hypokalemia (Chronic) CKD (chronic kidney disease), stage III (Chronic) Obesity (Chronic) Urinary incontinence, mixed (Chronic) Open wound of lower limb (Chronic) Microalbuminuric diabetic nephropathy (Chronic) Peripheral venous insufficiency (Chronic) Ganglion of wrist (Chronic) Fecal occult blood test positive (Chronic) Hypertriglyceridemia (Chronic) CHF (congestive heart failure) (Chronic) Diastolic heart failure (Chronic) Morbid obesity (Chronic) Ulceration (Chronic) Pain in left leg (Chronic) Weakness (Chronic) Abnormal gait (Chronic) Calluse (Chronic) Urinary incontinence (Chronic) Intermittent claudication (Chronic) Edema, lower extremity (Chronic) Loss of taste (Chronic) Fatigue (Chronic) Anemia (Chronic) Osteoarthritis (Chronic) PVD (peripheral vascular disease) (Chronic) Hyperlipidemia (Chronic) DM II (diabetes mellitus, type II), controlled (Chronic) COPD (chronic obstructive pulmonary disease) (Chronic) Arthritis (Chronic) Allergic bronchitis (Chronic) SOB (shortness of breath) (Chronic) Cellulitis (Chronic) Edema extremities (Chronic) Diabetes (Chronic) Chronic hyperkalemia (Chronic) Venous stasis ulcer of both lower extremities without varicose veins (Chronic) Cellulitis and abscess of leg (Chronic) Diabetic ankle ulcer (Chronic) Asthma with exacerbation (Chronic) Dermatitis fungal (Chronic) CHF (congestive heart failure) (Chronic) Medical History Abnormal gait Allergic bronchitis Allergic rhinitis Anemia Arthritis Arthritis of hand Bereavement Calluse Cellulitis Patient already started on IV antibiotics Cellulitis and abscess of leg Excellent clinical improvement with chlorhexidene washes and topical skin moisturizer applications. CHF (congestive heart failure) Chronic hyperkalemia CKD (chronic kidney disease), stage III COPD (chronic obstructive pulmonary disease) Diabetes Diabetic ankle ulcer Diastolic heart failure DM II (diabetes mellitus, type II), controlled Dyspnea Edema extremities Will treat with spiral compression bandages and elevation of legs on pillows. Edema, lower extremity Fatigue Fecal occult blood test positive Foot pain Ganglion of wrist Hyperlipidemia Hypertriglyceridemia Hypokalemia Intermittent claudication Loss of taste Microalbuminuric diabetic nephropathy Morbid obesity Nocturnal hypoxemia Obesity Open wound of lower limb Osteoarthritis Knee Hip Pain in left leg Peripheral venous insufficiency Poor sleep hygiene PVD (peripheral vascular disease) Restrictive lung disease SOB (shortness of breath) Tenosynovitis of wrist Ulceration Bilateral Legs Urinary incontinence Urinary incontinence, mixed Venous stasis ulcer of both lower extremities without varicose veins Weakness Surgical History H/O skin graft left leg History of breast biopsy History of foot surgery History of hysterectomy History of rotator cuff surgery Family History Father Lung cancer Jaw cancer Diabetes Grandmother [place] (myocardial infarction) Paternal HTN (hypertension) Paternal Family/Other Alzheimer's dementia Paternal Aunt Social History household members: other lives independently: Yes marital status: pets and animals: Yes pets and animals: dog(s) sexually active: No alcohol intake frequency: does not drink substance use type: does not use seatbelt use: always working smoke detector in home: Yes firearms in home: No MEDS/ALLERGIES Home Medications and Allergies Home Medications Medication Instructions Recorded Confirmed Type clonidine HCl 0.3 mg tablet 0.3 mg PO BID 04/28/16 01/16/22 History gabapentin 100 mg capsule 100 mg PO TID #90 caps 07/04/17 01/16/22 Rx losartan 25 mg tablet 100 mg PO QAM 07/25/19 01/16/22 History lovastatin 40 mg tablet 80 mg PO DAILY 07/25/19 01/16/22 History potassium chloride 10 mEq 40 meq PO .4XW 07/25/19 01/16/22 History tablet,extended release carvedilol 25 mg tablet 25 mg PO BID 12/26/19 01/16/22 History vitamin E 200 unit capsule 800 unit PO QDAY 12/26/19 01/16/22 History albuterol sulfate 90 mcg/actuation 1 inh inhalation QIDP PRN 09/02/20 01/16/22 History aerosol inhaler (Ventolin HFA) Shortness Of Breath salmeterol 50 mcg/dose blister 1 inh inhalation BID 09/02/20 01/16/22 History powder for inhalation (Serevent Diskus) furosemide 40 mg tablet 40 mg PO DAILY #30 tabs 09/04/20 01/16/22 Rx dapagliflozin 5 mg tablet (Farxiga) 5 mg PO QAM 09/22/20 01/16/22 History Allergies Allergy/AdvReac Type Severity Reaction Status Date / Time lidocaine AdvReac Intermediate Muscle Pain Verified 11/18/20 13:38 morphine AdvReac Intermediate Vomiting Verified 11/18/20 13:38 wool AdvReac Intermediate Rash Verified 11/18/20 13:38 acetaminophen [From Angela] AdvReac Mild Vomiting Verified 11/18/20 13:38 adhesive tape AdvReac Mild Rash Verified 11/18/20 13:38 hydrocodone [From Angela] AdvReac Mild Vomiting Verified 11/18/20 13:38 tramadol AdvReac Mild Vomiting Verified 11/18/20 13:38 Physical Examination Vital Signs Vital signs: Temp Pulse Resp BP Pulse Ox O2 Del Method O2 Flow Rate 97.9 F 68 20 122/64 97 2 01/19/22 08:00 01/19/22 08:00 01/19/22 08:00 01/19/22 08:00 01/19/22 08:00 01/19/22 08:00 01/19/22 08:00 General physical appearance General physical exam: other (awake and fully conversant ) Integumentary Integumentary: Present other (directed examination to the bilateral Lower Legs demonstrates changes of chronic edema but with what appear to be multiple areas of relatively superficial skin breakdown bilaterally, R>L, that look quite a bit shallot cleaner than described in presenting notes with some superfical slough) Results Labs Result diagrams: 01/17/22 05:22 01/17/22 05:22 Labs: All other labs normal. A/P Assessment and plan (1) Cellulitis of both lower extremities: Assessment and plan: Bilateral Lower Leg Cellulitis secondary to Venous Stasis Ulcerations from Chronic Venous Insufficiency She appears to be improving significantly with the measures enacted since admission including edema prevention, superficial bedside debridement with MIST and IV ABs Although we could proceed to the OR today for formal exploration and more a ggressive debridement, my impression thus far is that the current measures have resulted in significant improvement and so, particularly given her history of what appears to be very active CHF, I would favor continuing current mgmt with close observation as she does not currently appear septic and appearance is improving with the current regimen. If she worsens in some way or fails to progress then we can proceed to the OR if need be but for now would recommend day to day assessment with ongoing care Discussed with patient at length and she would prefer to continue with non operative mgmt for now as well Status: Acute Time Spent With Patient Time: Total time spent is greater than 50% in coordination of care (as documented) at patient's floor/unit and/or counseling patient:
[2022-01-19] MEDS: HYDROcodone/APAP 5/325MG TABLET PO PRN ×3 (11:01→22:28)
--- NOTE | 2022-01-19 17:20 | Behavioral Health Consult ---
HPI History of Present Illness Patient information: Note initiated : 01/19/22 at 5:17 pm Service Date, if different from initiated Date: [] Patient: Cony Baig a 71 y/o F admitted on 01/16/22 for lower extremity pain. Chief Complaint: [] History of present illness: Ms. Baig is a 71 year old F Name: Cony BaigDOB: 1950 DateandTime: 01/19/2022 4:27:45 PM Location of the patient: [facility] IPLocation of the doctor: yuli Length of consult: 20 min This evaluation was conducted via video telepsychiatry with the assistance of onsite staff Reason for consult: depression, mse Requested by: hospitalist History of Present Illness: Patient brought in by EMS for significant lower extremity wounds from the knees to the ankles. Patient lives in an and letha ssings were found to be covered in ants and the wound with maggots. Dressings were filthy and likely had not been changed for significant amount of time fact they were adhering to the skin. Ulcers found in the ER determined to be stage II to at least III. She has not seen a physician in 7 months, since she was discharged from a transitional care unit back in June.Patient called EMS because of increased leg pain.Complains of fevers and headache.Not sure if she took her blood pressure medications yesterday and did not take them this morning because she was in the ER.Review of Systems:Pertinent positives as above. Denies chills/nausea/vomiting/chest or abdominal pain/cough/dyspnea/diarrhea. Remaining 10 point review of system reviewed negativePFSHPFSHAll Active Problems (Updated 01/16/22 @ 06:43 by Sharath Vyas DO)Sepsis (Acute)Cellulitis (Acute)Cellulitis of left leg (Acute)Hypertensive urgency (Acute)Restrictive lung disease (Acute)Acute bilateral thoracic back pain (Acute)Contusion of back wall of thorax (Acute)Infected wound (Acute)Elevated lactic acid level (Acute)Non-compliance (Acute)Edema of both lower extremities (Acute)Acute exacerbation of CHF (congestive heart failure) (Acute)Acute exacerbation of chronic obstructive pulmonary disease (Acute)Hypoxia (Acute)Poor sleep hygiene (Chronic)Hypertension (Chronic)Nocturnal hypoxemia (Chronic)Pulmonary hypertension (Chronic)Dyspnea (Chronic)Bereavement (Chronic)Allergic rhinitis (Chronic)Foot pain (Chronic)Arthritis of hand (Chronic)Tenosynovitis of wrist (Chronic)Hypokalemia (Chronic)CKD (chronic kidney disease), stage III (Chronic)Obesity (Chronic)Urinary incontinence, mixed (Chronic)Open wound of lower limb (Chronic)Microalbuminuric diabetic nephropathy (Chronic)Peripheral venous insufficiency (Chronic)Ganglion of wrist (Chronic)Fecal occult blood test positive (Chronic)Hypertriglyceridemia (Chronic)CHF (congestive heart failure) (Chronic)Diastolic heart failure (Chronic)Morbid obesity (Chronic)Ulceration (Chronic)Pain in left leg (Chronic)Weakness (Chronic)Abnormal gait (Chronic)Calluse (Chronic)Urinary incontinence (Chronic)Intermittent claudication (Chronic)Edema, lower extremity (Chronic)Loss of taste (Chronic)Fatigue (Chronic)Anemia (Chronic)Osteoarthritis (Chronic)PVD (peripheral vascular disease) (Chronic)Hyperlipidemia (Chronic)DM II (diabetes mellitus, type II), controlled (Chronic)COPD (chronic obstructive pulmonary disease) (Chronic)Arthritis (Chronic)Allergic bronchitis (Chronic)SOB (shortness of breath) (Chronic)Cellulitis (Chronic)Edema extremities (Chronic)Diabetes (Chronic)Chronic hyperkalemia (Chronic)Venous stasis ulcer of both lower extremities without varicose veins (Chronic)Cellulitis and abscess of leg (Chronic)Diabetic ankle ulcer (Chronic)Asthma with exacerbation (C hronic)Dermatitis fungal (Chronic)CHF (congestive heart failure) (Chronic)Medical History Abnormal gaitAllergic bronchitisAllergic rhinitisAnemiaArthritisArthritis of handBereavementCalluseCellulitisPatient already started on IV antibioticsCellulitis and abscess of legExcellent clinical improvement with chlorhexidene washes and topical skin moisturizer applications.CHF (congestive heart failure)Chronic hyperkalemiaCKD (chronic kidney disease), stage IIICOPD (chronic obstructive pulmonary disease)DiabetesDiabetic ankle ulcerDiastolic heart failureDM II (diabetes mellitus, type II), controlledDyspneaEdema extremitiesWill treat with spiral compression bandages and elevation of legs on pillows.Edema, lower extremityFatigueFecal occult blood test positiveFoot painGanglion of wristHyperlipidemiaHypertriglyceridemiaHypokalemiaIntermittent claudicationLoss of tasteMicroalbuminuric diabetic nephro Collateral Contacted: [place] for not contacting the collateral:None available Sleep issues?: No Psychiatric History/Treatment History: Past diagnoses: depression Hospitalizations: YesDescription: Current Treatment:No Suicide Assessment: PSS-3: 1) Over the past 2 weeks have you felt down, depressed or hopeless?Yes 2) Over the past 2 weeks have you had thoughts of killing yourself?No 3) Have you ever in your life attempted to kill yourself?No Within the past 6 months? [facility] Safety Assessment: Risk Factors Stressors: depression Attempts/Self-injury: No Impulsivity:YesDescription: Drug/Alcohol History:No Trauma History:No Access to firearms:No HI/Violence/Property destruction:No Legal: No Family Psych History:No Family History of suicide:No Protective Factors: Can handle stress well?Yes Protestant?No External: Social supports/ Therapeutic relationships: No Relationship history: none Living situation: lives by himself Employment: No Education: Responsibility to family/children/work: No Future orientation:No Health History: Medical History: as per records Medications & Freq: as per records Allergies: as per records Mental Status Exam: Appearance and Attire:Normal Psychomotor agitation:No abnormality Attitude and behavior:Cooperative Speech:No abnormality, Mood:Depressed, Dysthymic Affect:Full range of affect Thought process:Linear, Logical, Coherent Thought content:Suicidal ideation Perception: Intel:Above average Abstract:Appropriate Language:No abnormality Orientation:Oriented x 4, Grossly oriented Sense:Delirious Knowledge:Appropriate for education and socioeconomic status Memory:Intact Insight:Appropriate Judgement:Appropriate Gait:No abnormality Impression/Risk Assessment: Current Suicide Risk Elevated?No Current Violence Risk Elevated?No Issues with ability to care for self?Yes Summary: Diagnosis: F05 Delirium due to known physiological condition CPT Codes: 98374 Expanded problem focused history, exam, low complexity medical decision making (15 min) Treatment Plan: General: mood disorder nos mood disorder due to general medical condition major depression acute deLIRIUM JEROME CORTEZ THANK YOU FOR ALL YOUR HELP PATIENT IS NOT CAPABLE OF MAKING RATIONAL DECISIONS FOR HER WELFARE AT THIS CURRENT TIME Level of Care: SNF OR physical therapy and rehab Psychiatric Clearance: Yes Observation level 1:1 needed?: No Pharmacological: seroquel 100 mg po qhs zoloft 50 mg po qhs Patient psychotic?No Therapy: supportive Follow up needed while in the hospital?: YesNumber of times: Discussed plan with 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: 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 Other: PFSH PFS All Active Problems (Updated 01/17/22 @ 14:05 by Felisha Carrasco MD) History of congestive heart failure (Acute) Diabetes mellitus type 2 in obese (Acute) Stasis edema with ulcer of both lower extremities (Acute) Cellulitis of both lower extremities (Acute) Stasis dermatitis of left lower extremity due to peripheral venous hypertension (Acute) Sepsis (Acute) Cellulitis (Acute) Cellulitis of left leg (Acute) Hypertensive urgency (Acute) Restrictive lung disease (Acute) Acute bilateral thoracic back pain (Acute) Contusion of back wall of thorax (Acute) Infected wound (Acute) Elevated lactic acid level (Acute) Non-compliance (Acute) Edema of both lower extremities (Acute) Acute exacerbation of CHF (congestive heart failure) (Acute) Acute exacerbation of chronic obstructive pulmonary disease (Acute) Hypoxia (Acute) Poor sleep hygiene (Chronic) Hypertension (Chronic) Nocturnal hypoxemia (Chronic) Pulmonary hypertension (Chronic) Dyspnea (Chronic) Bereavement (Chronic) Allergic rhinitis (Chronic) Foot pain (Chronic) Arthritis of hand (Chronic) Tenosynovitis of wrist (Chronic) Hypokalemia (Chronic) CKD (chronic kidney disease), stage III (Chronic) Obesity (Chronic) Urinary incontinence, mixed (Chronic) Open wound of lower limb (Chronic) Microalbuminuric diabetic nephropathy (Chronic) Peripheral venous insufficiency (Chronic) Ganglion of wrist (Chronic) Fecal occult blood test positive (Chronic) Hypertriglyceridemia (Chronic) CHF (congestive heart failure) (Chronic) Diastolic heart failure (Chronic) Morbid obesity (Chronic) Ulceration (Chronic) Pain in left leg (Chronic) Weakness (Chronic) Abnormal gait (Chronic) Calluse (Chronic) Urinary incontinence (Chronic) Intermittent claudication (Chronic) Edema, lower extremity (Chronic) Loss of taste (Chronic) Fatigue (Chronic) Anemia (Chronic) Osteoarthritis (Chronic) PVD (peripheral vascular disease) (Chronic) Hyperlipidemia (Chronic) DM II (diabetes mellitus, type II), controlled (Chronic) COPD (chronic obstructive pulmonary disease) (Chronic) Arthritis (Chronic) Allergic bronchitis (Chronic) SOB (shortness of breath) (Chronic) Cellulitis (Chronic) Edema extremities (Chronic) Diabetes (Chronic) Chronic hyperkalemia (Chronic) Venous stasis ulcer of both lower extremities without varicose veins (Chronic) Cellulitis and abscess of leg (Chronic) Diabetic ankle ulcer (Chronic) Asthma with exacerbation (Chronic) Dermatitis fungal (Chronic) CHF (congestive heart failure) (Chronic) Medical History Abnormal gait Allergic bronchitis Allergic rhinitis Anemia Arthritis Arthritis of hand Bereavement Calluse Cellulitis Patient already started on IV antibiotics Cellulitis and abscess of leg Excellent clinical improvement with chlorhexidene washes and topical skin moisturizer applications. CHF (congestive heart failure) Chronic hyperkalemia CKD (chronic kidney disease), stage III COPD (chronic obstructive pulmonary disease) Diabetes Diabetic ankle ulcer Diastolic heart failure DM II (diabetes mellitus, type II), controlled Dyspnea Edema extremities Will treat with spiral compression bandages and elevation of legs on pillows. Edema, lower extremity Fatigue Fecal occult blood test positive Foot pain Ganglion of wrist Hyperlipidemia Hypertriglyceridemia Hypokalemia Intermittent claudication Loss of taste Microalbuminuric diabetic nephropathy Morbid obesity Nocturnal hypoxemia Obesity Open wound of lower limb Osteoarthritis Knee Hip Pain in left leg Peripheral venous insufficiency Poor sleep hygiene PVD (peripheral vascular disease) Restrictive lung disease SOB (shortness of breath) Tenosynovitis of wrist Ulceration Bilateral Legs Urinary incontinence Urinary incontinence, mixed Venous stasis ulcer of both lower extremities without varicose veins Weakness Surgical History H/O skin graft left leg History of breast biopsy History of foot surgery History of hysterectomy History of rotator cuff surgery Family History Father Lung cancer Jaw cancer Diabetes Grandmother AR (myocardial infarction) Paternal HTN (hypertension) Paternal Family/Other Alzheimer's dementia Paternal Aunt Social History household members: other lives independently: Yes marital status: pets and animals: Yes pets and animals: dog(s) sexually active: No alcohol intake frequency: does not drink substance use type: does not use seatbelt use: always working smoke detector in home: Yes firearms in home: No MEDS/ALLERGIES Home Medications and Allergies Home Medications Medication Instructions Recorded Confirmed Type clonidine HCl 0.3 mg tablet 0.3 mg PO BID 04/28/16 01/16/22 History gabapentin 100 mg capsule 100 mg PO TID #90 caps 07/04/17 01/16/22 Rx losartan 25 mg tablet 100 mg PO QAM 07/25/19 01/16/22 History lovastatin 40 mg tablet 80 mg PO DAILY 07/25/19 01/16/22 History potassium chloride 10 mEq 40 meq PO .4XW 07/25/19 01/16/22 History tablet,extended release carvedilol 25 mg tablet 25 mg PO BID 12/26/19 01/16/22 History vitamin E 200 unit capsule 800 unit PO QDAY 12/26/19 01/16/22 History albuterol sulfate 90 mcg/actuation 1 inh inhalation QIDP PRN 09/02/20 01/16/22 History aerosol inhaler (Ventolin HFA) Shortness Of Breath salmeterol 50 mcg/dose blister 1 inh inhalation BID 09/02/20 01/16/22 History powder for inhalation (Serevent Diskus) furosemide 40 mg tablet 40 mg PO DAILY #30 tabs 09/04/20 01/16/22 Rx dapagliflozin 5 mg tablet (Farxiga) 5 mg PO QAM 09/22/20 01/16/22 History Allergies Allergy/AdvReac Type Severity Reaction Status Date / Time lidocaine AdvReac Intermediate Muscle Pain Verified 11/18/20 13:38 morphine AdvReac Intermediate Vomiting Verified 11/18/20 13:38 wool AdvReac Intermediate Rash Verified 11/18/20 13:38 acetaminophen [From [facility]] AdvReac Mild Vomiting Verified 11/18/20 13:38 adhesive tape AdvReac Mild Rash Verified 11/18/20 13:38 hydrocodone [From [facility]] AdvReac Mild Vomiting Verified 11/18/20 13:38 tramadol AdvReac Mild Vomiting Verified 11/18/20 13:38 Physical Examination Vital Signs Vital signs: Temp Pulse Resp BP Pulse Ox O2 Del Method O2 Flow Rate 97.6 F 69 20 140/78 96 2 01/19/22 16:00 01/19/22 16:00 01/19/22 16:00 01/19/22 16:00 01/19/22 16:00 01/19/22 16:00 01/19/22 16:00 Results Laboratory Findings CBC and BMP: 01/17/22 05:22 01/17/22 05:22 Abnormal lab findings: Abnormal Labs 01/16/22 01/16/22 01/16/22 04:08 04:08 04:17 Hct 45.5 H MCH 25.3 L MCHC 29.9 L RDW 17.4 H Plt Count 461 H Immature Gran % (Auto) POC VBG pH 7.45 H POC VBG pCO2 at Temp 40.1 L POC VBG pO2 POC Venous O2 Sat POC VBG Base Excess 4.0 H* VBG Lactic Acid 2.5 H Anion Gap Creatinine Glucose 173 H Hemoglobin A1c Calcium C-Reactive Protein Total Protein Albumin 2.6 L Globulin 4.1 H Albumin/Globulin Ratio 0.6 L Urine Appearance Urine RBC Ur Squamous Epith Cells Urine Bacteria Urine Mucus Urine Yeast (Budding) 01/16/22 01/16/22 01/17/22 07:41 12:37 05:22 Hct MCH 25.3 L MCHC 28.2 L RDW 17.1 H Plt Count Immature Gran % (Auto) 0.7 H POC VBG pH POC VBG pCO2 at Temp 40.0 L POC VBG pO2 78 H POC Venous O2 Sat 95.0 H POC VBG Base Excess VBG Lactic Acid Anion Gap Creatinine Glucose Hemoglobin A1c Calcium C-Reactive Protein Total Protein Albumin Globulin Albumin/Globulin Ratio Urine Appearance Cloudy A Urine RBC 5 H Ur Squamous Epith Cells 28 H Urine Bacteria Few A Urine Mucus Mod A Urine Yeast (Budding) Mod A 01/17/22 01/18/22 05:22 06:04 Hct MCH MCHC RDW Plt Count Immature Gran % (Auto) POC VBG pH POC VBG pCO2 at Temp POC VBG pO2 POC Venous O2 Sat POC VBG Base Excess VBG Lactic Acid Anion Gap 7.0 L Creatinine 0.5 L Glucose 111 H Hemoglobin A1c 7.1 H Calcium 8.4 L C-Reactive Protein 5.20 H Total Protein 5.5 L Albumin 1.9 L Globulin Albumin/Globulin Ratio 0.5 L Urine Appearance Urine RBC Ur Squamous Epith Cells Urine Bacteria Urine Mucus Urine Yeast (Budding) Microbiology: Microbiology 01/16/22 06:26 Ankle - Right Gram Stain - Final 01/16/22 06:26 Ankle - Right Wound Culture - Final Proteus vulgaris Staphylococcus aureus 01/17/22 14:32 Leg - Lower Right Gram Stain - Final 01/17/22 14:32 Leg - Lower Right Wound Culture - Final 01/17/22 14:32 Leg - Lower Left Gram Stain - Final 01/17/22 14:32 Leg - Lower Left Wound Culture - Final 01/16/22 04:08 Blood Blood Culture - Preliminary 01/16/22 04:00 Blood Blood Culture - Preliminary 01/16/22 06:26 Ankle - Left Gram Stain - Preliminary 01/16/22 06:26 Ankle - Left Wound Culture - Preliminary Gram negative bacillus Gram negative bacillus#2 01/16/22 12:30 Nose MRSA (PCR) - Final A/P Time Spent With Patient Time: Total time spent is greater than 50% in coordination of care (as documented) at patient's floor/unit and/or counseling patient:
--- NOTE | 2022-01-19 17:21 | Behavioral Health Consult ---
HPI History of Present Illness Patient information: Note initiated : 01/19/22 at 5:20 pm Service Date, if different from initiated Date: [] Patient: Cony Baig a 71 y/o F admitted on 01/16/22 for lower extremity pain. Chief Complaint: [] History of present illness: Ms. Baig is a 71 year old F Name: Cony BaigDOB: 1950 DateandTime: 01/19/2022 4:27:45 PM Location of the patient: [facility] IPLocation of the doctor: yuli Length of consult: 20 min This evaluation was conducted via video telepsychiatry with the assistance of onsite staff Reason for consult: depression, mse Requested by: hospitalist History of Present Illness: Patient brought in by EMS for significant lower extremity wounds from the knees to the ankles. Patient lives in an and dress ings were found to be covered in ants and the wound with maggots. Dressings were filthy and likely had not been changed for significant amount of time fact they were adhering to the skin. Ulcers found in the ER determined to be stage II to at least III. She has not seen a physician in 7 months, since she was discharged from a transitional care unit back in June.Patient called EMS because of in creased leg pain.Complains of fevers and headache.Not sure if she took her blood pressure medications yesterday and did not take them this morning because she was in the ER.Review of Systems:Pertinent positives as above. Denies chills/nausea/vomiting/chest or abdominal pain/cough/dyspnea/diarrhea. Remaining 10 point review of system reviewed negativePFSHPFSHAll Active Problems (Updated 01/16/22 @ 06:43 by Sharath Vyas DO)Sepsis (Acute)Cellulitis (Acute)Cellulitis of left leg (Acute)Hypertensive urgency (Acute)Restrictive lung disease (Acute)Acute bilateral thoracic back pain (Acute)Contusion of back wall of thorax (Acute)Infected wound (Acute)Elevated lactic acid level (Acute)Non-compliance (Acute)Edema of both lower extremities (Acute)Acute exacerbation of CHF (congestive heart failure) (Acute)Acute exacerbation of chronic obstructive pulmonary disease (Acute)Hypoxia (Acute)Poor sleep hygiene (Chronic)Hypertension (Chronic)Nocturnal hypoxemia (Chronic)Pulmonary hypertension (Chronic)Dyspnea (Chronic)Bereavement (Chronic)Allergic rhinitis (Chronic)Foot pain (Chronic)Arthritis of hand (Chronic)Tenosynovitis of wrist (Chronic)Hypokalemia (Chronic)CKD (chronic kidney disease), stage III (Chronic)Obesity (Chronic)Urinary incontinence, mixed (Chronic)Open wound of lower limb (Chronic)Microalbuminuric diabetic nephropathy (Chronic)Peripheral venous insufficiency (Chronic)Ganglion of wrist (Chronic)Fecal occult blood test positive (Chronic)Hypertriglyceridemia (Chronic)CHF (congestive heart failure) (Chronic)Diastolic heart failure (Chronic)Morbid obesity (Chronic)Ulceration ( Chronic)Pain in left leg (Chronic)Weakness (Chronic)Abnormal gait (Chronic)Calluse (Chronic)Urinary incontinence (Chronic)Intermittent claudication (Chronic)Edema, lower extremity (Chronic)Loss of taste (Chronic)Fatigue (Chronic)Anemia (Chronic)Osteoarthritis (Chronic)PVD (peripheral vascular disease) (Chronic)Hyperlipidemia (Chronic)DM II (diabetes mellitus, type II), controlled (Chronic)COPD (chronic obstructive pulmonary disease) (Chronic)Arthritis (Chronic)Allergic bronchitis (Chronic)SOB (shortness of breath) (Chronic)Cellulitis (Chronic)Edema extremities (Chronic)Diabetes (Chronic)Chronic hyperkalemia (Chronic)Venous stasis ulcer of both lower extremities without varicose veins (Chronic)Cellulitis and abscess of leg (Chronic)Diabetic ankle ulcer (Chronic)Asthma with exacerbation (Chr onic)Dermatitis fungal (Chronic)CHF (congestive heart failure) (Chronic)Medical History Abnormal gaitAllergic bronchitisAllergic rhinitisAnemiaArthritisArthritis of handBereavementCalluseCellulitisPatient already started on IV antibioticsCellulitis and abscess of legExcellent clinical improvement with chlorhexidene washes and topical skin moisturizer applications.CHF (congestive heart failure)Chronic hyperkalemiaCKD (chronic kidney disease), stage IIICOPD (chronic obstructive pulmonary disease)DiabetesDiabetic ankle ulcerDiastolic heart failureDM II (diabetes mellitus, type II), controlledDyspneaEdema extremitiesWill treat with spiral compression bandages and elevation of legs on pillows.Edema, lower extremityFatigueFecal occult blood test positiveFoot painGanglion of wristHyperlipidemiaHypertriglyceridemiaHypokalemiaIntermittent claudicationLoss of tasteMicroalbuminuric diabetic nephro Collateral Contacted: [place] for not contacting the collateral:None available Sleep issues?: No Psychiatric History/Treatment History: Past diagnoses: depression Hospitalizations: YesDescription: Current Treatment:No Suicide Assessment: PSS-3: 1) Over the past 2 weeks have you felt down, depressed or hopeless?Yes 2) Over the past 2 weeks have you had thoughts of killing yourself?No 3) Have you ever in your life attempted to kill yourself?No Within the past 6 months? [facility] Safety Assessment: Risk Factors Stressors: depression Attempts/Self-injury: No Impulsivity:YesDescription: Drug/Alcohol History:No Trauma History:No Access to firearms:No HI/Violence/Property destruction:No Legal: No Family Psych History:No Family History of suicide:No Protective Factors: Can handle stress well?Yes Congregational?No External: Social supports/ Therapeutic relationships: No Relationship history: none Living situation: lives by himself Employment: No Education: Responsibility to family/children/work: No Future orientation:No Health History: Medical History: as per records Medications & Freq: as per records Allergies: as per records Mental Status Exam: Appearance and Attire:Normal Psychomotor agitation:No abnormality Attitude and behavior:Cooperative Speech:No abnormality, Mood:Depressed, Dysthymic Affect:Full range of affect Thought process:Linear, Logical, Coherent Thought content:Suicidal ideation Perception: Intel:Above average Abstract:Appropriate Language:No abnormality Orientation:Oriented x 4, Grossly oriented Sense:Delirious Knowledge:Appropriate for education and socioeconomic status Memory:Intact Insight:Appropriate Judgement:Appropriate Gait:No abnormality Impression/Risk Assessment: Current Suicide Risk Elevated?No Current Violence Risk Elevated?No Issues with ability to care for self?Yes Summary: Diagnosis: F05 Delirium due to known physiological condition CPT Codes: 06627 Expanded problem focused history, exam, low complexity medical decision making (15 min) Treatment Plan: General: mood disorder nos mood disorder due to general medical condition major depression acute deLIRIUM JEROME CORTEZ THANK YOU FOR ALL YOUR HELP PATIENT IS NOT CAPABLE OF MAKING RATIONAL DECISIONS FOR HER WELFARE AT THIS CURRENT TIME Level of Care: SNF OR physical therapy and rehab Psychiatric Clearance: Yes Observation level 1:1 needed?: No Pharmacological: seroquel 100 mg po qhs zoloft 50 mg po qhs Patient psychotic?No Therapy: supportive Follow up needed while in the hospital?: YesNumber of times: Discussed plan with 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 sub 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: 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 Other: [facility] PFS All Active Problems (Updated 01/17/22 @ 14:05 by Felisha Carrasco MD) History of congestive heart failure (Acute) Diabetes mellitus type 2 in obese (Acute) Stasis edema with ulcer of both lower extremities (Acute) Cellulitis of both lower extremities (Acute) Stasis dermatitis of left lower extremity due to peripheral venous hypertension (Acute) Sepsis (Acute) Cellulitis (Acute) Cellulitis of left leg (Acute) Hypertensive urgency (Acute) Restrictive lung disease (Acute) Acute bilateral thoracic back pain (Acute) Contusion of back wall of thorax (Acute) Infected wound (Acute) Elevated lactic acid level (Acute) Non-compliance (Acute) Edema of both lower extremities (Acute) Acute exacerbation of CHF (congestive heart failure) (Acute) Acute exacerbation of chronic obstructive pulmonary disease (Acute) Hypoxia (Acute) Poor sleep hygiene (Chronic) Hypertension (Chronic) Nocturnal hypoxemia (Chronic) Pulmonary hypertension (Chronic) Dyspnea (Chronic) Bereavement (Chronic) Allergic rhinitis (Chronic) Foot pain (Chronic) Arthritis of hand (Chronic) Tenosynovitis of wrist (Chronic) Hypokalemia (Chronic) CKD (chronic kidney disease), stage III (Chronic) Obesity (Chronic) Urinary incontinence, mixed (Chronic) Open wound of lower limb (Chronic) Microalbuminuric diabetic nephropathy (Chronic) Peripheral venous insufficiency (Chronic) Ganglion of wrist (Chronic) Fecal occult blood test positive (Chronic) Hypertriglyceridemia (Chronic) CHF (congestive heart failure) (Chronic) Diastolic heart failure (Chronic) Morbid obesity (Chronic) Ulceration (Chronic) Pain in left leg (Chronic) Weakness (Chronic) Abnormal gait (Chronic) Calluse (Chronic) Urinary incontinence (Chronic) Intermittent claudication (Chronic) Edema, lower extremity (Chronic) Loss of taste (Chronic) Fatigue (Chronic) Anemia (Chronic) Osteoarthritis (Chronic) PVD (peripheral vascular disease) (Chronic) Hyperlipidemia (Chronic) DM II (diabetes mellitus, type II), controlled (Chronic) COPD (chronic obstructive pulmonary disease) (Chronic) Arthritis (Chronic) Allergic bronchitis (Chronic) SOB (shortness of breath) (Chronic) Cellulitis (Chronic) Edema extremities (Chronic) Diabetes (Chronic) Chronic hyperkalemia (Chronic) Venous stasis ulcer of both lower extremities without varicose veins (Chronic) Cellulitis and abscess of leg (Chronic) Diabetic ankle ulcer (Chronic) Asthma with exacerbation (Chronic) Dermatitis fungal (Chronic) CHF (congestive heart failure) (Chronic) Medical History Abnormal gait Allergic bronchitis Allergic rhinitis Anemia Arthritis Arthritis of hand Bereavement Calluse Cellulitis Patient already started on IV antibiotics Cellulitis and abscess of leg Excellent clinical improvement with chlorhexidene washes and topical skin moisturizer applications. CHF (congestive heart failure) Chronic hyperkalemia CKD (chronic kidney disease), stage III COPD (chronic obstructive pulmonary disease) Diabetes Diabetic ankle ulcer Diastolic heart failure DM II (diabetes mellitus, type II), controlled Dyspnea Edema extremities Will treat with spiral compression bandages and elevation of legs on pillows. Edema, lower extremity Fatigue Fecal occult blood test positive Foot pain Ganglion of wrist Hyperlipidemia Hypertriglyceridemia Hypokalemia Intermittent claudication Loss of taste Microalbuminuric diabetic nephropathy Morbid obesity Nocturnal hypoxemia Obesity Open wound of lower limb Osteoarthritis Knee Hip Pain in left leg Peripheral venous insufficiency Poor sleep hygiene PVD (peripheral vascular disease) Restrictive lung disease SOB (shortness of breath) Tenosynovitis of wrist Ulceration Bilateral Legs Urinary incontinence Urinary incontinence, mixed Venous stasis ulcer of both lower extremities without varicose veins Weakness Surgical History H/O skin graft left leg History of breast biopsy History of foot surgery History of hysterectomy History of rotator cuff surgery Family History Father Lung cancer Jaw cancer Diabetes Grandmother [place] (myocardial infarction) Paternal HTN (hypertension) Paternal Family/Other Alzheimer's dementia Paternal Aunt Social History household members: other lives independently: Yes marital status: pets and animals: Yes pets and animals: dog(s) sexually active: No alcohol intake frequency: does not drink substance use type: does not use seatbelt use: always working smoke detector in home: Yes firearms in home: No MEDS/ALLERGIES Home Medications and Allergies Home Medications Medication Instructions Recorded Confirmed Type clonidine HCl 0.3 mg tablet 0.3 mg PO BID 04/28/16 01/16/22 History gabapentin 100 mg capsule 100 mg PO TID #90 caps 12/26/17 07/10/22 Rx losartan 25 mg tablet 100 mg PO QAM 07/25/19 01/16/22 History lovastatin 40 mg tablet 80 mg PO DAILY 07/25/19 01/16/22 History potassium chloride 10 mEq 40 meq PO .4XW 07/25/19 01/16/22 History tablet,extended release carvedilol 25 mg tablet 25 mg PO BID 12/26/19 01/16/22 History vitamin E 200 unit capsule 800 unit PO QDAY 12/26/19 01/16/22 History albuterol sulfate 90 mcg/actuation 1 inh inhalation QIDP PRN 09/02/20 01/16/22 History aerosol inhaler (Ventolin HFA) Shortness Of Breath salmeterol 50 mcg/dose blister 1 inh inhalation BID 09/02/20 01/16/22 History powder for inhalation (Serevent Diskus) furosemide 40 mg tablet 40 mg PO DAILY #30 tabs 09/04/20 01/16/22 Rx dapagliflozin 5 mg tablet (Farxiga) 5 mg PO QAM 09/22/20 01/16/22 History Allergies Allergy/AdvReac Type Severity Reaction Status Date / Time lidocaine AdvReac Intermediate Muscle Pain Verified 11/18/20 13:38 morphine AdvReac Intermediate Vomiting Verified 11/18/20 13:38 wool AdvReac Intermediate Rash Verified 11/18/20 13:38 acetaminophen [From [place]] AdvReac Mild Vomiting Verified 11/18/20 13:38 adhesive tape AdvReac Mild Rash Verified 11/18/20 13:38 hydrocodone [From [place]] AdvReac Mild Vomiting Verified 11/18/20 13:38 tramadol AdvReac Mild Vomiting Verified 11/18/20 13:38 Physical Examination Vital Signs Vital signs: Temp Pulse Resp BP Pulse Ox O2 Del Method O2 Flow Rate 97.6 F 69 20 140/78 96 2 01/19/22 16:00 01/19/22 16:00 01/19/22 16:00 01/19/22 16:00 01/19/22 16:00 01/19/22 16:00 01/19/22 16:00 Results Laboratory Findings CBC and BMP: 01/17/22 05:22 01/17/22 05:22 Abnormal lab findings: Abnormal Labs 01/16/22 01/16/22 01/16/22 04:08 04:08 04:17 Hct 45.5 H MCH 25.3 L MCHC 29.9 L RDW 17.4 H Plt Count 461 H Immature Gran % (Auto) POC VBG pH 7.45 H POC VBG pCO2 at Temp 40.1 L POC VBG pO2 POC Venous O2 Sat POC VBG Base Excess 4.0 H* VBG Lactic Acid 2.5 H Anion Gap Creatinine Glucose 173 H Hemoglobin A1c Calcium C-Reactive Protein Total Protein Albumin 2.6 L Globulin 4.1 H Albumin/Globulin Ratio 0.6 L Urine Appearance Urine RBC Ur Squamous Epith Cells Urine Bacteria Urine Mucus Urine Yeast (Budding) 01/16/22 01/16/22 01/17/22 07:41 12:37 05:22 Hct MCH 25.3 L MCHC 28.2 L RDW 17.1 H Plt Count Immature Gran % (Auto) 0.7 H POC VBG pH POC VBG pCO2 at Temp 40.0 L POC VBG pO2 78 H POC Venous O2 Sat 95.0 H POC VBG Base Excess VBG Lactic Acid Anion Gap Creatinine Glucose Hemoglobin A1c Calcium C-Reactive Protein Total Protein Albumin Globulin Albumin/Globulin Ratio Urine Appearance Cloudy A Urine RBC 5 H Ur Squamous Epith Cells 28 H Urine Bacteria Few A Urine Mucus Mod A Urine Yeast (Budding) Mod A 01/17/22 01/18/22 05:22 06:04 Hct MCH MCHC RDW Plt Count Immature Gran % (Auto) POC VBG pH POC VBG pCO2 at Temp POC VBG pO2 POC Venous O2 Sat POC VBG Base Excess VBG Lactic Acid Anion Gap 7.0 L Creatinine 0.5 L Glucose 111 H Hemoglobin A1c 7.1 H Calcium 8.4 L C-Reactive Protein 5.20 H Total Protein 5.5 L Albumin 1.9 L Globulin Albumin/Globulin Ratio 0.5 L Urine Appearance Urine RBC Ur Squamous Epith Cells Urine Bacteria Urine Mucus Urine Yeast (Budding) Microbiology: Microbiology 01/16/22 06:26 Ankle - Right Gram Stain - Final 01/16/22 06:26 Ankle - Right Wound Culture - Final Proteus vulgaris Staphylococcus aureus 01/17/22 14:32 Leg - Lower Right Gram Stain - Final 01/17/22 14:32 Leg - Lower Right Wound Culture - Final 01/17/22 14:32 Leg - Lower Left Gram Stain - Final 01/17/22 14:32 Leg - Lower Left Wound Culture - Final 01/16/22 04:08 Blood Blood Culture - Preliminary 01/16/22 04:00 Blood Blood Culture - Preliminary 01/16/22 06:26 Ankle - Left Gram Stain - Preliminary 01/16/22 06:26 Ankle - Left Wound Culture - Preliminary Gram negative bacillus Gram negative bacillus#2 01/16/22 12:30 Nose MRSA (PCR) - Final A/P Time Spent With Patient Time: Total time spent is greater than 50% in coordination of care (as documented) at patient's floor/unit and/or counseling patient:
[2022-01-20] MEDS: HYDROcodone/APAP 5/325MG TABLET PO PRN ×4 (04:58→23:59)
[2022-01-20] MEDS: 0.9 % SODIUM CHLORIDE 10 ML SYRINGE IV SCH ×5 (04:59→21:21)
[2022-01-20] MEDS: CEFEPIME 2 GM VIAL IV SCH ×3 (04:59→21:21)
[2022-01-20 06:57] LABS: Basophils # (Auto) 0.03 K/mcL (0.00-0.30); Basophils % (Auto) 0.5 % (0.0-2.0); Eosinophils # (Auto) 0.22 K/mcL (0.00-0.70); Eosinophils % (Auto) 3.4 % (0.0-7.0); Hematocrit 35.6 % (34.1-44.9); Hemoglobin 10.2 g/dL (11.2-15.7); Lymphocytes % (Auto) 31.1 % (15.5-49.0); Mean Cell Volume 88.1 fL (80.0-100.0); Mean Corpuscular HGB Conc 28.7 g/dL (31.0-36.0); Mean Platelet Volume 8.7 fL (7.4-10.4); Monocytes # (Auto) 0.57 K/mcL (0.10-0.90); Monocytes % (Auto) 8.9 % (1.0-12.0); Neutrophils % (Auto) 55.5 % (38.0-78.0); Platelet Count 293 K/mcL (140-440); RBC 4.04 M/mcL (3.59-5.38); Red Cell Distribution Width 16.6 % (11.5-14.5); WBC 6.4 K/mcL (4.5-11.0)
[2022-01-20 07:19] LABS: ALT/SGPT < 5 U/L (<40); AST/SGOT 6 U/L (<32); Albumin 2.3 gm/dL (3.2-5.2); Albumin/Globulin Ratio 0.6 (1.0-2.3); Alkaline Phosphatase 74 U/L (39-117); Bilirubin,Direct < 0.2 mg/dL (0-0.3); Bilirubin,Total < 0.2 mg/dL (0.1-1.0); Blood Urea Nitrogen 12 mg/dL (8-23); Calcium 8.7 mg/dL (8.6-10.4); Carbon Dioxide 29 mmol/L (22-30); Chloride 98 mmol/L (96-108); Globulin 3.7 gm/dL (2.2-3.7); Glomerular Filtration Rate 99; Glucose 131 mg/dL (70-105); Lactate Dehydrogenase 259 U/L (135-225); Phosphorous 3.2 mg/dL (2.5-4.5); Triglycerides 234 mg/dL (<150); Uric Acid 3.5 mg/dL (2.5-8.0)
[2022-01-20] MEDS: cloNIDine HCL 0.1 MG TABLET PO SCH ×2 (09:58→20:45)
[2022-01-20] MEDS: LOSARTAN 50 MG TABLET PO SCH (09:58)
[2022-01-20] MEDS: SIMVASTATIN 40 MG TABLET PO SCH (09:59)
[2022-01-20] MEDS: GABAPENTIN 100 MG CAPSULE PO SCH ×3 (09:59→20:45)
[2022-01-20] MEDS: CARVEDILOL 12.5 MG TABLET PO SCH ×2 (09:59→15:52)
[2022-01-20] MEDS: DOCUSATE SODIUM 100 MG CAPSULE PO SCH ×2 (09:59→20:45)
[2022-01-20] MEDS: INSULIN LISPRO 1 UNIT/0.01 ML UNIT SQ SCH ×4 (10:02→20:56)
--- NOTE | 2022-01-20 12:47 | Internal Med Progress Note ---
SUBJECTIVE Subjective Patient information: Note initiated : 01/20/22 at 12:41 pm Service Date, if different from initiated Date: [] Patient: Cony Baig 71 y/o F admitted on 01/16/22 for lower extremity pain. Chief Complaint: [] Principal diagnosis: Severe bilateral LE wounds Interval history: 01/17: The patient's wound culture reveals gram-negative bacillus and few gram- positive cocci in pairs. MRSA swab was negative and vancomycin will be discontinued. We will continue cefepime for the time being and may switch to Zosyn. The patient at this point requires aggressive wound care. General surgery been consulted for consideration of debridement. At this point, she is unable to look after herself and her RV as she was found to have maggots/ants in her wounds. She was found to be severely disheveled. APS report will be filed. Of note, we will repeat A1c to check the status of her diabetes mellitus type 2 as she is diet controlled. She also likely has COPD/KAYLEN and was requiring supplemental O2. 01/18: General surgery will likely be taking the patient to the OR today for debridement. CT of the lower extremities is pending. This is to better assess her vascular anatomy as a TBI was difficult to perform. Of note, the patient has a PICC in place due to poor vascular access and the likely need for long- term parenteral antibiotics. The patient stated that she was a diet-controlled diabetic however an A1c was checked and it was 7.1. She will need to be on insulin sliding scale. 01/19: CTA did not reveal severe stenotic atherosclerotic disease of the lower extremities. There is no evidence of PVD which is reassuring. Continue empiric antibiotic coverage, wound care and have general surgery follow-up for debridement of her lower extremity wounds. The patient will be needing placement to alf facility as she is unable to look after herself at home in her RV. 01/20-patient seen in room. Ongoing wound dressing/management per surgery. Telepsych consultation completed and currently on Seroquel 100 at bedtime/Zoloft 50 at bedtime. Continuing cefepime for polymicrobial including Proteus/staph cultures from wound/cellulitis. Continue dietary intervention/therapies as tole rated. Constitutional Vitals: Vital Signs Temp Pulse Resp BP Pulse Ox O2 Del Method O2 Flow Rate 97.6 F 64 16 119/67 96 2 07/14/22 11:38 01/20/22 11:38 01/20/22 11:38 01/20/22 11:38 01/20/22 11:38 01/20/22 11:38 01/20/22 11:38 Period Temp Pulse Resp BP Sys/Najera Pulse Ox O2 Del Method O2 Flow Rate Last 24 Hr 97.2 F-97.9 F 64-85 16-22 119-144/67-80 94-96 Nasal Cannula- Nasal Cannula 2-2 Intake and Output 01/19/22 01/20/22 01/20/22 21:59 05:59 13:59 Intake Total 500 200 Output Total 125 350 200 Balance -125 150 0 Weight 124.012 kg 123.831 kg Patient Weight 01/21/22 05:59 Weight 123.831 kg Alert oriented Nonlabored breathing Bilateral lower extremity dressing Intake & Output: Intake & Output 01/19/22 01/20/22 01/20/22 21:59 05:59 13:59 Intake Total 500 200 Output Total 125 350 200 Balance -125 150 0 Weight 124.012 kg 123.831 kg Intake: Oral 500 200 Output: Void Amount 125 350 200 Other: Meal yogurt Breakfast Percent of Meal Consumed 100% 100% Feeding Ability Independent Independent Urine Appearance Clear Clear Clear Urine Color Bright Yellow Bright Yellow Bright Yellow Urine Odor Normal Stool Size Large Moderate Stool Color Brown Brown Stool Consistency Soft Soft Formed Formed # Bowel Movements 1 1 OBJ DATA Labs CBC & Chem 7: 01/20/22 05:21 01/20/22 05:21 Labs: Abnormal Lab Results 01/20/22 01/20/22 01/18/22 05:21 05:21 06:04 Hgb 10.2 L MCH 25.2 L MCHC 28.7 L RDW 16.6 H Immature Gran % (Auto) 0.6 H Anion Gap 7.0 L Creatinine 0.5 L Glucose 131 H Hemoglobin A1c 7.1 H Lactate Dehydrogenase 259 H C-Reactive Protein 5.20 H Albumin 2.3 L Albumin/Globulin Ratio 0.6 L Triglycerides 234 H Meds: Medications Acetaminophen (Acetaminophen 325 Mg Tablet) 650 mg PO Q6HP PRN; Protocol PRN Reason: Per Pain Protocol/Fever > 101 Hydrocodone Bitart/Acetaminophen (Hydrocodone/Apap 5/325mg Tablet) 1 tab PO Q4HP PRN PRN Reason: PAIN LEVEL 3-6 Last Admin: 01/20/22 09:58 Dose: 1 tab Albuterol Sulfate (Albuterol Sulfate 200 Puff Inhaler) 1 puff INH QIDP PRN PRN Reason: Shortness Of Breath Albuterol/Ipratropium (Ipratropium/Albuterol 3 Ml Ampul.Neb) 3 ml NEB Q4HP PRN PRN Reason: Shortness Of Breath Carvedilol (Carvedilol 12.5 Mg Tablet) 25 mg PO BIDCC [facility] Last Admin: 01/20/22 09:59 Dose: 25 mg Cefepime HCl (Cefepime 2 Gm Vial) 2 gm IV Q8H [facility]; Protocol Last Admin: 01/20/22 04:59 Dose: 2 gm Clonidine HCl (Clonidine Hcl 0.1 Mg Tablet) 0.3 mg PO BID [facility] Last Admin: 01/20/22 09:58 Dose: 0.3 mg Dextrose (Dextrose 50% 50 Ml Vial) 0 ml IV UD PRN PRN Reason: Per Sliding Scale Dextrose (Dextrose 50% 50 Ml Vial) 0 ml IV UD PRN PRN Reason: Per Sliding Scale Diagnostic Test (Pha) (Accu-Chek 1 Each Strip) 1 each FS ACHS [facility] Last Admin: 01/20/22 10:02 Dose: 1 each Diphenhydramine HCl (Diphenhydramine 50 Mg/Ml Vial) 25 mg IV Q6HP PRN PRN Reason: Allergic Symptoms Last Admin: 01/16/22 08:45 Dose: 25 mg Docusate Sodium (Docusate Sodium 100 Mg Capsule) 100 mg PO BID [facility] Last Admin: 01/20/22 09:59 Dose: 100 mg Gabapentin (Gabapentin 100 Mg Capsule) 100 mg PO TID [facility] Last Admin: 01/20/22 09:59 Dose: 100 mg Glucose (Dextrose 31 Gm Oral.Susp) 15 gm PO PRN PRN PRN Reason: Hypoglycemia Glucose (Dextrose 31 Gm Oral.Susp) 15 gm PO PRN PRN PRN Reason: Hypoglycemia Heparin Sodium (Porcine) (Heparin Flush 10 Units/Ml 5 Ml Syringe) 2 ml IV Q12 [facility] Last Admin: 01/19/22 22:23 Dose: 2 ml Hydralazine HCl (Hydralazine 20 Mg/Ml Vial) 0 mg IV Q2HP PRN PRN Reason: Hypertension Last Admin: 01/17/22 04:18 Dose: 20 mg Potassium Chloride 40 meq/ (Dextrose) 520 mls @ 130 mls/hr IV UD PRN PRN Reason: Potassium < 3 Magnesium Sulfate (Magnesium Sulfate) 2 gm in 50 mls @ 50 mls/hr IV UD PRN PRN Reason: Magnesium </= 1.6 Insulin Human Lispro (Insulin Lispro 1 Unit/0.01 Ml Unit) 0 unit SQ ACHS [facility]; Protocol Last Admin: 01/20/22 10:02 Dose: Not Given Labetalol HCl (Labetalol 5 Mg/Ml Ml) 0 mg IV Q2HP PRN PRN Reason: Hypertension Losartan Potassium (Losartan 50 Mg Tablet) 100 mg PO QAM [facility] Last Admin: 01/20/22 09:58 Dose: 100 mg Metoclopramide HCl (Metoclopramide 10 Mg/2 Ml Vial) 10 mg IV Q6HP PRN PRN Reason: Nausea And Vomiting Morphine Sulfate (Morphine 4 Mg/Ml Vial) 0 mg IV Q3HP PRN PRN Reason: Pain Last Admin: 01/19/22 10:31 Dose: 3 mg Ondansetron HCl (Ondansetron 4 Mg/2 Ml Vial) 4 mg IV Q4HP PRN PRN Reason: Nausea And Vomiting Polyethylene Glycol (Polyethylene Glycol 3350 17 Gm Packet) 17 gm PO DAILYP PRN PRN Reason: Constipation Last Admin: 01/19/22 17:19 Dose: 17 gm Potassium Chloride (Potassium Chloride 20 Meq Tablet) 40 meq PO UD PRN PRN Reason: Potssium is 3-3.5 Potassium Chloride (Potassium Chloride 20 Meq Tablet) 40 meq PO UD PRN PRN Reason: Potassium < 3 Promethazine HCl (Promethazine 25 Mg/Ml Vial) 12.5 mg IV Q6HP PRN PRN Reason: Nausea And Vomiting Senna (Sennosides 1 Tablet) 2 tab PO DAILYP PRN PRN Reason: Constipation Last Admin: 01/19/22 22:28 Dose: 2 tab Simvastatin (Simvastatin 40 Mg Tablet) 40 mg PO DAILY [facility] Last Admin: 01/20/22 09:59 Dose: 40 mg Sodium Chloride (0.9 % Sodium Chloride 10 Ml Syringe) 10 ml IV Q8 [facility] Last Admin: 01/20/22 04:59 Dose: 10 ml Sodium Chloride (0.9 % Sodium Chloride 10 Ml Syringe) 10 ml IV UD PRN PRN Reason: FLUSH Sodium Chloride (0.9 % Sodium Chloride 10 Ml Syringe) 10 ml IV Q12 [facility] Last Admin: 01/20/22 09:59 Dose: 10 ml A/P Narrative A/P Narrative: * Cellulitis lower extremity polymicrobial, continue antibiotic coverage and cefepime * Venous stasis ulcer varicose vein continue limb elevation/rehab/supportive treatments * History of COPD on bronchodilators * HLD on statin * DM type II SSI/dapagliflozin/CC diet * Hypertension on clonidine/Coreg/losartan * Neuropathy on gabapentin Plan * Continue antibiotic coverage * Wound care/limb elevation/supportive treatments * Pre-existing medical condition management home medications * Case management coordinate SNF placement Time Spent With Patient Time: Total time spent is greater than 50% in coordination of care (as documented) at patient's floor/unit and/or counseling patient: Total time spent with greater than 50% in coordination of care (as documented) at patient's floor/unit and/or counseling patient:: 25 - 35 minutes QUALITY Stroke Symptom Onset Unknown: No VTE Deep Vein Thrombosis/Pulmonary Embolism Present on Admission: No
--- NOTE | 2022-01-20 19:03 | General Surgery Progress Note ---
SUBJECTIVE Subjective Patient information: Note initiated : 01/20/22 at 1045 am Service Date, if different from initiated Date: [] Patient: Cony Baig 71 y/o F admitted on 01/16/22 for lower extremity pain. Chief Complaint: [] Lower Extremity Wounds examined at bedside with Wound Care Team Principal diagnosis: Severe bilateral LE wounds Constitutional Vitals: Vital Signs Temp Pulse Resp BP Pulse Ox O2 Del Method O2 Flow Rate 97.1 F 73 17 132/73 97 2 01/20/22 15:42 01/20/22 15:42 01/20/22 15:42 01/20/22 15:42 01/20/22 15:42 01/20/22 15:42 01/20/22 15:42 Period Temp Pulse Resp BP Sys/Najera Pulse Ox O2 Del Method O2 Flow Rate Last 24 Hr 97.1 F-97.9 F 64-81 16-22 119-144/67-80 94-97 Nasal Cannula-N jade Cannula 2-2 Intake and Output 01/20/22 01/20/22 01/20/22 05:59 13:59 21:59 Intake Total 500 200 240 Output Total 350 200 1 Balance 150 0 239 Weight 273 lb Patient Weight 01/21/22 05:59 Weight 273 lb Intake & Output: Intake & Output 01/20/22 01/20/22 01/20/22 05:59 13:59 21:59 Intake Total 500 200 240 Output Total 350 200 1 Balance 150 0 239 Weight 273 lb Intake: Oral 500 200 240 Output: Void Amount 350 200 # of times incontinent of urine 1 Other: Meal Breakfast Nourishment/Supplement Percent of Meal Consumed 100% 100% Feeding Ability Independent Independent Urine Appearance Clear Clear Urine Color Bright Yellow Bright Yellow Urine Odor Normal Stool Size Moderate Large Stool Color Brown Brown Stool Consistency Soft Soft Formed Formed # Voids 1 # Bowel Movements 1 1 Extremities Exam Additional comments: edema continues to be improved bilaterally. Wounds on the Right continue to be more active than those on the Left but overall they appear to be Stage II wounds with underlying granulation and superficial slough. There is minimal necrosis present, no odor, no purulent drainage and surrounding erythema is consistent to a large degree with changes of Chronic Venous Insufficiency A/P Assessment and plan (1) Stasis edema with ulcer of both lower extremities: Assessment and plan: Overall she continues to look much improved in terms of the Bilateral Lower Extremity Wounds. She has indications for ongoing wound care with need for superficial debridement of slough and biofilm on a regular basis but that should be able to generally be done in the clinic/bedside setting. May ultimately need some sort of operative intervention but for now this looks amenable to bedside care. Continue present care including topical debridement therapies At some point, she likely will be a good candidate for an Unna Boot as well Continue present care with ongoing evaluation as needed Status: Acute Time Spent With Patient Time: Total time spent is greater than 50% in coordination of care (as documented) at patient's floor/unit and/or counseling patient:
[2022-01-21] MEDS: 0.9 % SODIUM CHLORIDE 10 ML SYRINGE IV SCH ×7 (05:16→21:33)
[2022-01-21] MEDS: CEFEPIME 2 GM VIAL IV SCH ×3 (05:16→21:33)
[2022-01-21] MEDS: HYDROcodone/APAP 5/325MG TABLET PO PRN ×3 (05:51→20:14)
[2022-01-21 07:41] LABS: Basophils # (Auto) 0.06 K/mcL (0.00-0.30); Basophils % (Auto) 1.1 % (0.0-2.0); Eosinophils # (Auto) 0.31 K/mcL (0.00-0.70); Eosinophils % (Auto) 5.7 % (0.0-7.0); Hematocrit 36.3 % (34.1-44.9); Hemoglobin 10.4 g/dL (11.2-15.7); Lymphocytes # (Auto) 1.91 K/mcL (1.50-4.80); Lymphocytes % (Auto) 35.4 % (15.5-49.0); Mean Cell Volume 89.9 fL (80.0-100.0); Mean Corpuscular HGB Conc 28.7 g/dL (31.0-36.0); Mean Platelet Volume 8.7 fL (7.4-10.4); Monocytes # (Auto) 0.55 K/mcL (0.10-0.90); Monocytes % (Auto) 10.2 % (1.0-12.0); Neutrophils % (Auto) 47.2 % (38.0-78.0); Platelet Count 247 K/mcL (140-440); RBC 4.04 M/mcL (3.59-5.38); Red Cell Distribution Width 16.9 % (11.5-14.5); WBC 5.4 K/mcL (4.5-11.0)
[2022-01-21] MEDS: INSULIN LISPRO 1 UNIT/0.01 ML UNIT SQ SCH ×4 (07:52→20:14)
[2022-01-21 07:59] LABS: ALT/SGPT < 5 U/L (<40); AST/SGOT 6 U/L (<32); Albumin 2.2 gm/dL (3.2-5.2); Albumin/Globulin Ratio 0.7 (1.0-2.3); Alkaline Phosphatase 68 U/L (39-117); Bilirubin,Direct < 0.2 mg/dL (0-0.3); Bilirubin,Total 0.2 mg/dL (0.1-1.0); Blood Urea Nitrogen 11 mg/dL (8-23); Calcium 8.7 mg/dL (8.6-10.4); Carbon Dioxide 28 mmol/L (22-30); Chloride 99 mmol/L (96-108); Globulin 3.2 gm/dL (2.2-3.7); Glomerular Filtration Rate 99; Glucose 112 mg/dL (70-105); Lactate Dehydrogenase 175 U/L (135-225); Phosphorous 3.3 mg/dL (2.5-4.5); Triglycerides 219 mg/dL (<150); Uric Acid 3.3 mg/dL (2.5-8.0)
[2022-01-21] MEDS: CARVEDILOL 12.5 MG TABLET PO SCH ×2 (08:00→18:31)
[2022-01-21] MEDS: GABAPENTIN 100 MG CAPSULE PO SCH ×3 (08:25→20:13)
[2022-01-21] MEDS: cloNIDine HCL 0.1 MG TABLET PO SCH ×2 (08:25→20:13)
[2022-01-21] MEDS: DOCUSATE SODIUM 100 MG CAPSULE PO SCH ×2 (08:25→20:13)
[2022-01-21] MEDS: SIMVASTATIN 40 MG TABLET PO SCH (08:29)
[2022-01-21] MEDS: LOSARTAN 50 MG TABLET PO SCH (08:30)
[2022-01-21] MEDS ORDERED: HYDROmorphone 1 MG/ML SYRINGE IV PRN (09:42)
[2022-01-21] MEDS ORDERED: ACETAMINOPHEN 1,000 MG/100 ML BAG IV SCH (09:45)
[2022-01-21] MEDS ORDERED: 0.9 % SODIUM CHLORIDE 1,000 ML IV SCH (09:45)
--- NOTE | 2022-01-21 10:45 | Internal Med Progress Note ---
SUBJECTIVE Subjective Patient information: Note initiated : 01/21/22 at 10:42 am Service Date, if different from initiated Date: [] Patient: Cony Baig 71 y/o F admitted on 01/16/22 for lower extremity pain. Chief Complaint: [] Principal diagnosis: Severe bilateral LE wounds Interval history: 01/17: The patient's wound culture reveals gram-negative bacillus and few gram- positive cocci in pairs. MRSA swab was negative and vancomycin will be discontinued. We will continue cefepime for the time being and may switch to Zosyn. The patient at this point requires aggressive wound care. General surgery been consulted for consideration of debridement. At this point, she is unable to look after herself and her RV as she was found to have maggots/ants in her wounds. She was found to be severely disheveled. APS report will be filed. Of note, we will repeat A1c to check the status of her diabetes mellitus type 2 as she is diet controlled. She also likely has COPD/KAYLEN and was requiring supplemental O2. 01/18: General surgery will likely be taking the patient to the OR today for debridement. CT of the lower extremities is pending. This is to better assess her vascular anatomy as a TBI was difficult to perform. Of note, the patient has a PICC in place due to poor vascular access and the likely need for long- term parenteral antibiotics. The patient stated that she was a diet-controlled diabetic however an A1c was checked and it was 7.1. She will need to be on insulin sliding scale. 01/19: CTA did not reveal severe stenotic atherosclerotic disease of the lower extremities. There is no evidence of PVD which is reassuring. Continue empiric antibiotic coverage, wound care and have general surgery follow-up for debridement of her lower extremity wounds. The patient will be needing placement to fpc facility as she is unable to look after herself at home in her RV. 01/20-patient seen in room. Ongoing wound dressing/management per surgery. Telepsych consultation completed and currently on Seroquel 100 at bedtime/Zoloft 50 at bedtime. Continuing cefepime for polymicrobial including Proteus/staph cultures from wound/cellulitis. Continue dietary intervention/therapies as joel rated. 01/21-patient doing a lot better during his day. Continuing therapy/wound care per surgery. On antibiotic coverage. De-escalate in 24 hours. Patient nontoxic, clinically improved, tolerating diet and therapies. Anticipate discharge in the next 72 hours. No overnight fever chills or concerns per nursing staff Constitutional Vitals: Vital Signs Temp Pulse Resp BP Pulse Ox O2 Del Method O2 Flow Rate 97.4 F 67 20 119/63 96 2 01/21/22 06:33 01/21/22 06:33 01/21/22 06:33 01/21/22 06:33 01/21/22 06:33 01/21/22 08:00 01/21/22 08:00 Period Temp Pulse Resp BP Sys/Najera Pulse Ox O2 Del Method O2 Flow Rate Last 24 Hr 97.1 F-97.8 F 64-78 14-20 119-146/63-82 92-97 Nasal Cannula- Nasal Cannula 2-2 Intake and Output 01/20/22 01/21/22 01/21/22 21:59 05:59 13:59 Intake Total 240 800 Output Total 1 801 300 Balance 239 -1 -300 Weight 118.115 kg Alert oriented Nonlabored breathing Lower extremity lymphedema improving Wound dressing lower extremities Intake & Output: Intake & Output 01/20/22 01/21/22 01/21/22 21:59 05:59 13:59 Intake Total 240 800 Output Total 1 801 300 Balance 239 -1 -300 Weight 118.115 kg Intake: Oral 240 800 Output: Void Amount 800 300 # of times incontinent of urine 1 1 Other: Meal Nourishment/Supplement Percent of Meal Consumed 100% Feeding Ability Independent Urine Appearance Clear Clear Urine Color Straw Pale Straw Urine Odor Normal Normal Stool Size Moderate Stool Color Brown Stool Consistency Soft # Voids 1 # Bowel Movements 1 OBJ DATA Labs CBC & Chem 7: 01/21/22 05:42 01/21/22 05:42 Labs: Abnormal Lab Results 01/21/22 01/21/22 01/20/22 05:42 05:42 05:21 Hgb 10.4 L 10.2 L MCH 25.7 L 25.2 L MCHC 28.7 L 28.7 L RDW 16.9 H 16.6 H Immature Gran % (Auto) 0.6 H Anion Gap 7.0 L Creatinine 0.5 L Glucose 112 H Lactate Dehydrogenase Total Protein 5.4 L Albumin 2.2 L Albumin/Globulin Ratio 0.7 L Triglycerides 219 H 01/20/22 05:21 Hgb MCH MCHC RDW Immature Gran % (Auto) Anion Gap 7.0 L Creatinine 0.5 L Glucose 131 H Lactate Dehydrogenase 259 H Total Protein Albumin 2.3 L Albumin/Globulin Ratio 0.6 L Triglycerides 234 H Meds: Medications Acetaminophen (Acetaminophen 325 Mg Tablet) 650 mg PO Q6HP PRN; Protocol PRN Reason: Per Pain Protocol/Fever > 101 Hydrocodone Bitart/Acetaminophen (Hydrocodone/Apap 5/325mg Tablet) 1 tab PO Q4HP PRN PRN Reason: PAIN LEVEL 3-6 Last Admin: 01/21/22 05:51 Dose: 1 tab Albuterol Sulfate (Albuterol Sulfate 200 Puff Inhaler) 1 puff INH QIDP PRN PRN Reason: Shortness Of Breath Albuterol/Ipratropium (Ipratropium/Albuterol 3 Ml Ampul.Neb) 3 ml NEB Q4HP PRN PRN Reason: Shortness Of Breath [facility] ([facility] 12[facility]5 [facility] Last Admin: 01/20/22 15:52 Dose: 25 mg Cefepime HCl (Cefepime 2 Gm Vial) 2 gm IV Q8H [facility]; Protocol Last Admin: 01/21/22 05:16 Dose: 2 gm Clonidine HCl (Clonidine Hcl 0.1 Mg Tablet) 0.3 mg PO BID [facility] Last Admin: 01/21/22 08:25 Dose: 0.3 mg Dextrose (Dextrose 50% 50 Ml Vial) 0 ml IV UD PRN PRN Reason: Per Sliding Scale Diagnostic Test (Pha) (Accu-Chek 1 Each Strip) 1 each FS ACHS [facility] Last Admin: 01/21/22 08:30 Dose: 1 each Diphenhydramine HCl (Diphenhydramine 50 Mg/Ml Vial) 25 mg IV Q6HP PRN PRN Reason: Allergic Symptoms Last Admin: 01/16/22 08:45 Dose: 25 mg Docusate Sodium (Docusate Sodium 100 Mg Capsule) 100 mg PO BID [facility] Last Admin: 01/21/22 08:25 Dose: 100 mg Enoxaparin Sodium (Enoxaparin 40 Mg/0.4 Ml Syringe) 40 mg SQ DAILY [facility] Gabapentin (Gabapentin 100 Mg Capsule) 100 mg PO TID [facility] Last Admin: 01/21/22 08:25 Dose: 100 mg Glucose (Dextrose 31 Gm Oral.Susp) 15 gm PO PRN PRN PRN Reason: Hypoglycemia Heparin Sodium (Porcine) (Heparin Flush 10 Units/Ml 5 Ml Syringe) 2 ml IV Q12 [facility] Last Admin: 01/21/22 08:25 Dose: 2 ml Hydralazine HCl (Hydralazine 20 Mg/Ml Vial) 0 mg IV Q2HP PRN PRN Reason: Hypertension Last Admin: 01/17/22 04:18 Dose: 20 mg Potassium Chloride 40 meq/ (Dextrose) 520 mls @ 130 mls/hr IV UD PRN PRN Reason: Potassium < 3 Magnesium Sulfate (Magnesium Sulfate) 2 gm in 50 mls @ 50 mls/hr IV UD PRN PRN Reason: Magnesium </= 1.6 Insulin Human Lispro (Insulin Lispro 1 Unit/0.01 Ml Unit) 0 unit SQ ACHS [facility]; Protocol Last Admin: 01/21/22 07:52 Dose: Not Given Labetalol HCl (Labetalol 5 Mg/Ml Ml) 0 mg IV Q2HP PRN PRN Reason: Hypertension Losartan Potassium (Losartan 50 Mg Tablet) 100 mg PO QAM [facility] Last Admin: 01/21/22 08:30 Dose: Not Given Metoclopramide HCl (Metoclopramide 10 Mg/2 Ml Vial) 10 mg IV Q6HP PRN PRN Reason: Nausea And Vomiting Morphine Sulfate (Morphine 4 Mg/Ml Vial) 0 mg IV Q3HP PRN PRN Reason: Pain Last Admin: 01/19/22 10:31 Dose: 3 mg Ondansetron HCl (Ondansetron 4 Mg/2 Ml Vial) 4 mg IV Q4HP PRN PRN Reason: Nausea And Vomiting Polyethylene Glycol (Polyethylene Glycol 3350 17 Gm Packet) 17 gm PO DAILYP PRN PRN Reason: Constipation Last Admin: 01/19/22 17:19 Dose: 17 gm Potassium Chloride (Potassium Chloride 20 Meq Tablet) 40 meq PO UD PRN PRN Reason: Potssium is 3-3.5 Potassium Chloride (Potassium Chloride 20 Meq Tablet) 40 meq PO UD PRN PRN Reason: Potassium < 3 Promethazine HCl (Promethazine 25 Mg/Ml Vial) 12.5 mg IV Q6HP PRN PRN Reason: Nausea And Vomiting Senna (Sennosides 1 Tablet) 2 tab PO DAILYP PRN PRN Reason: Constipation Last Admin: 01/19/22 22:28 Dose: 2 tab Simvastatin (Simvastatin 40 Mg Tablet) 40 mg PO DAILY [facility] Last Admin: 01/21/22 08:29 Dose: 40 mg Sodium Chloride (0.9 % Sodium Chloride 10 Ml Syringe) 10 ml IV Q8 [facility] Last Admin: 01/21/22 05:16 Dose: 10 ml Sodium Chloride (0.9 % Sodium Chloride 10 Ml Syringe) 10 ml IV UD PRN PRN Reason: FLUSH Last Admin: 01/20/22 15:49 Dose: 10 ml Sodium Chloride (0.9 % Sodium Chloride 10 Ml Syringe) 10 ml IV Q12 [facility] Last Admin: 01/21/22 08:29 Dose: Not Given Sodium Chloride (0.9 % Sodium Chloride 10 Ml Syringe) 10 ml IV Q8 [facility] A/P Narrative A/P Narrative: * Cellulitis lower extremity polymicrobial culture, continue cefepime/wound care per surgery, patient follows up with Dr. Oseguera as outpatient * Venous stasis ulcer varicose vein continue limb elevation/rehab/supportive treatments * History of COPD on bronchodilators, home oxygen on 2 L * Severe deconditioning continue PT OT/nutrition support * HLD on statin * Morbid obesity, dietary intervention/weight loss reduction strategies, recommend lifestyle modification * DM type II SSI/dapagliflozin/CC diet * Hypertension on clonidine/Coreg/losartan * Neuropathy on gabapentin Plan * De-escalate antibiotics in 24 hours * Wound care/limb elevation/supportive treatments * Pre-existing medical condition management home medications * Case management to evaluate SNF placement versus transfer to home with home health services/wound care based on PT eval and clinical progress Time Spent With Patient Time: Total time spent is greater than 50% in coordination of care (as documented) at patient's floor/unit and/or counseling patient: Total time spent with greater than 50% in coordination of care (as documented) at patient's floor/unit and/or counseling patient:: 25 - 35 minutes QUALITY Stroke Symptom Onset Unknown: No VTE Deep Vein Thrombosis/Pulmonary Embolism Present on Admission: No
[2022-01-21] MEDS: ENOXAPARIN 40 MG/0.4 ML SYRINGE SQ SCH (15:03)
[2022-01-22] MEDS: HYDROcodone/APAP 5/325MG TABLET PO PRN ×4 (04:05→20:10)
[2022-01-22] MEDS: 0.9 % SODIUM CHLORIDE 10 ML SYRINGE IV SCH ×8 (05:27→20:45)
[2022-01-22] MEDS: CEFEPIME 2 GM VIAL IV SCH (05:27)
[2022-01-22 06:53] LABS: Basophils # (Auto) 0.04 K/mcL (0.00-0.30); Basophils % (Auto) 0.7 % (0.0-2.0); Eosinophils # (Auto) 0.32 K/mcL (0.00-0.70); Eosinophils % (Auto) 5.7 % (0.0-7.0); Hematocrit 36.3 % (34.1-44.9); Hemoglobin 10.5 g/dL (11.2-15.7); Lymphocytes # (Auto) 1.86 K/mcL (1.50-4.80); Mean Cell Volume 87.7 fL (80.0-100.0); Mean Corpuscular HGB Conc 28.9 g/dL (31.0-36.0); Monocytes % (Auto) 10.6 % (1.0-12.0); Neutrophils % (Auto) 49.3 % (38.0-78.0); Platelet Count 215 K/mcL (140-440); RBC 4.14 M/mcL (3.59-5.38); Red Cell Distribution Width 16.8 % (11.5-14.5); WBC 5.6 K/mcL (4.5-11.0)
[2022-01-22 07:22] LABS: ALT/SGPT < 5 U/L (<40); AST/SGOT 6 U/L (<32); Albumin 2.5 gm/dL (3.2-5.2); Albumin/Globulin Ratio 0.9 (1.0-2.3); Alkaline Phosphatase 64 U/L (39-117); Bilirubin,Direct < 0.2 mg/dL (0-0.3); Bilirubin,Total 0.2 mg/dL (0.1-1.0); Blood Urea Nitrogen 11 mg/dL (8-23); Calcium 8.7 mg/dL (8.6-10.4); Carbon Dioxide 34 mmol/L (22-30); Chloride 97 mmol/L (96-108); Globulin 2.9 gm/dL (2.2-3.7); Glomerular Filtration Rate 99; Glucose 140 mg/dL (70-105); Lactate Dehydrogenase 130 U/L (135-225); Phosphorous 3.4 mg/dL (2.5-4.5); Triglycerides 199 mg/dL (<150); Uric Acid 3.3 mg/dL (2.5-8.0)
[2022-01-22] MEDS: INSULIN LISPRO 1 UNIT/0.01 ML UNIT SQ SCH ×4 (07:33→19:58)
[2022-01-22] MEDS: ENOXAPARIN 40 MG/0.4 ML SYRINGE SQ SCH (08:15)
[2022-01-22] MEDS: GABAPENTIN 100 MG CAPSULE PO SCH ×3 (08:26→19:56)
[2022-01-22] MEDS: CARVEDILOL 12.5 MG TABLET PO SCH ×2 (08:26→16:54)
[2022-01-22] MEDS: cloNIDine HCL 0.1 MG TABLET PO SCH ×2 (08:27→19:56)
[2022-01-22] MEDS: SIMVASTATIN 40 MG TABLET PO SCH (08:27)
[2022-01-22] MEDS: DOCUSATE SODIUM 100 MG CAPSULE PO SCH ×2 (08:27→19:56)
--- NOTE | 2022-01-22 08:27 | Internal Med Progress Note ---
SUBJECTIVE Subjective Patient information: Note initiated : 01/22/22 at 8:25 am Service Date, if different from initiated Date: [] Patient: Cony Baig 71 y/o F admitted on 01/16/22 for lower extremity pain. Chief Complaint: [] Principal diagnosis: Severe bilateral LE wounds Interval history: 01/17: The patient's wound culture reveals gram-negative bacillus and few gram- positive cocci in pairs. MRSA swab was negative and vancomycin will be discontinued. We will continue cefepime for the time being and may switch to Zosyn. The patient at this point requires aggressive wound care. General surgery been consulted for consideration of debridement. At this point, she is unable to look after herself and her RV as she was found to have maggots/ants in her wounds. She was found to be severely disheveled. APS report will be filed. Of note, we will repeat A1c to check the status of her diabetes mellitus type 2 as she is diet controlled. She also likely has COPD/KAYLEN and was requiring supplemental O2. 01/18: General surgery will likely be taking the patient to the OR today for debridement. CT of the lower extremities is pending. This is to better assess her vascular anatomy as a TBI was difficult to perform. Of note, the patient has a PICC in place due to poor vascular access and the likely need for long- term parenteral antibiotics. The patient stated that she was a diet-controlled diabetic however an A1c was checked and it was 7.1. She will need to be on insulin sliding scale. 01/19: CTA did not reveal severe stenotic atherosclerotic disease of the lower extremities. There is no evidence of PVD which is reassuring. Continue empiric antibiotic coverage, wound care and have general surgery follow-up for debridement of her lower extremity wounds. The patient will be needing placement to fdc facility as she is unable to look after herself at home in her RV. 01/20-patient seen in room. Ongoing wound dressing/management per surgery. Telepsych consultation completed and currently on Seroquel 100 at bedtime/Zoloft 50 at bedtime. Continuing cefepime for polymicrobial including Proteus/staph cultures from wound/cellulitis. Continue dietary intervention/therapies as tolerated. 01/21-patient doing a lot better during his day. Continuing therapy/wound care per surgery. On antibiotic coverage. De-escalate in 24 hours. Patient nontoxic, clinically improved, tolerating diet and therapies. Anticipate discharge in the next 72 hours. No overnight fever chills or concerns per nursing staff 01/22-patient doing well. No overnight events. Ongoing wound care. Anticipate discharge to SNF. Case management coordinating. No overnight events including fever chills nausea vomiting. Stable labs and hemodynamics Constitutional Vitals: Vital Signs Temp Pulse Resp BP Pulse Ox O2 Del Method O2 Flow Rate 97.8 F 75 16 136/75 92 2 01/22/22 06:40 01/22/22 03:59 01/22/22 06:40 01/22/22 06:40 01/22/22 06:40 01/22/22 07:41 01/22/22 07:01 Period Temp Pulse Resp BP Sys/Najera Pulse Ox O2 Del Method O2 Flow Rate Last 24 Hr 97.1 F-98.3 F 66-76 12-28 125-150/65-80 91-97 Nasal Cannula- Room Air 2-2.0 Intake and Output 01/21/22 01/22/22 01/22/22 21:59 05:59 13:59 Intake Total 480 400 Output Total 301 Balance 480 99 Weight 118.115 kg Alert oriented neck Morbidly obese Nondistressed nonlabored breathing on 2 L oxygen Lower extremity wound wraps Intake & Output: Intake & Output 01/21/22 01/22/22 01/22/22 21:59 05:59 13:59 Intake Total 480 400 Output Total 301 Balance 480 99 Weight 118.115 kg Intake: Oral 480 400 Output: Void Amount 300 # of times incontinent of urine 1 Other: Percent of Meal Consumed 100% Feeding Ability Independent Urine Appearance Clear Clear Urine Color Straw Straw Urine Odor Normal Normal # Voids 2 OBJ DATA Labs CBC & Chem 7: 01/22/22 05:31 01/22/22 05:31 Labs: Abnormal Lab Results 01/22/22 01/22/22 01/21/22 05:31 05:31 05:42 Hgb 10.5 L 10.4 L MCH 25.4 L 25.7 L MCHC 28.9 L 28.7 L RDW 16.8 H 16.9 H Immature Gran % (Auto) 0.7 H Carbon Dioxide 34 H Anion Gap 5.0 L Creatinine 0.5 L Glucose 140 H Lactate Dehydrogenase 130 L Total Protein 5.4 L Albumin 2.5 L Albumin/Globulin Ratio 0.9 L Triglycerides 199 H 01/21/22 01/20/22 01/20/22 05:42 05:21 05:21 Hgb 10.2 L MCH 25.2 L MCHC 28.7 L RDW 16.6 H Immature Gran % (Auto) 0.6 H Carbon Dioxide Anion Gap 7.0 L 7.0 L Creatinine 0.5 L 0.5 L Glucose 112 H 131 H Lactate Dehydrogenase 259 H Total Protein 5.4 L Albumin 2.2 L 2.3 L Albumin/Globulin Ratio 0.7 L 0.6 L Triglycerides 219 H 234 H Meds: Medications Acetaminophen (Acetaminophen 325 Mg Tablet) 650 mg PO Q6HP PRN; Protocol PRN Reason: Per Pain Protocol/Fever > 101 Hydrocodone Bitart/Acetaminophen (Hydrocodone/Apap 5/325mg Tablet) 1 tab PO Q4HP PRN PRN Reason: PAIN LEVEL 3-6 Last Admin: 01/22/22 04:05 Dose: 1 tab Albuterol Sulfate (Albuterol Sulfate 200 Puff Inhaler) 1 puff INH QIDP PRN PRN Reason: Shortness Of Breath Albuterol/Ipratropium (Ipratropium/Albuterol 3 Ml Ampul.Neb) 3 ml NEB Q4HP PRN PRN Reason: Shortness Of Breath Carvedilol ([facility] 12.5 Mg Tablet) [facility] Last Admin: 01/21/22 18:31 Dose: 25 mg Cefepime HCl (Cefepime 2 Gm Vial) 2 gm IV Q8H [facility]; Protocol Last Admin: 01/22/22 05:27 Dose: 2 gm Clonidine HCl (Clonidine Hcl 0.1 Mg Tablet) 0.3 mg PO BID [facility] Last Admin: 01/21/22 20:13 Dose: 0.3 mg Dextrose (Dextrose 50% 50 Ml Vial) 0 ml IV UD PRN PRN Reason: Per Sliding Scale Diagnostic Test (Pha) (Accu-Chek 1 Each Strip) 1 each FS ACHS [facility] Last Admin: 01/22/22 07:32 Dose: Not Given Diphenhydramine HCl (Diphenhydramine 50 Mg/Ml Vial) 25 mg IV Q6HP PRN PRN Reason: Allergic Symptoms Last Admin: 01/16/22 08:45 Dose: 25 mg Docusate Sodium (Docusate Sodium 100 Mg Capsule) 100 mg PO BID [facility] Last Admin: 01/21/22 20:13 Dose: 100 mg Enoxaparin Sodium (Enoxaparin 40 Mg/0.4 Ml Syringe) 40 mg SQ DAILY [facility] Last Admin: 01/22/22 08:15 Dose: Not Given Gabapentin (Gabapentin 100 Mg Capsule) 100 mg PO TID [facility] Last Admin: 01/21/22 20:13 Dose: 100 mg Glucose (Dextrose 31 Gm Oral.Susp) 15 gm PO PRN PRN PRN Reason: Hypoglycemia Heparin Sodium (Porcine) (Heparin Flush 10 Units/Ml 5 Ml Syringe) 2 ml IV Q12 [facility] Last Admin: 01/21/22 20:14 Dose: 2 ml Hydralazine HCl (Hydralazine 20 Mg/Ml Vial) 0 mg IV Q2HP PRN PRN Reason: Hypertension Last Admin: 01/17/22 04:18 Dose: 20 mg Potassium Chloride 40 meq/ (Dextrose) 520 mls @ 130 mls/hr IV UD PRN PRN Reason: Potassium < 3 Magnesium Sulfate (Magnesium Sulfate) 2 gm in 50 mls @ 50 mls/hr IV UD PRN PRN Reason: Magnesium </= 1.6 Insulin Human Lispro (Insulin Lispro 1 Unit/0.01 Ml Unit) 0 unit SQ ACHS [facility]; Protocol Last Admin: 01/22/22 07:33 Dose: Not Given Labetalol HCl (Labetalol 5 Mg/Ml Ml) 0 mg IV Q2HP PRN PRN Reason: Hypertension Losartan Potassium (Losartan 50 Mg Tablet) 100 mg PO QAM [facility] Last Admin: 01/21/22 08:30 Dose: Not Given Metoclopramide HCl (Metoclopramide 10 Mg/2 Ml Vial) 10 mg IV Q6HP PRN PRN Reason: Nausea And Vomiting Morphine Sulfate (Morphine 4 Mg/Ml Vial) 0 mg IV Q3HP PRN PRN Reason: Pain Last Admin: 01/19/22 10:31 Dose: 3 mg Ondansetron HCl (Ondansetron 4 Mg/2 Ml Vial) 4 mg IV Q4HP PRN PRN Reason: Nausea And Vomiting Polyethylene Glycol (Polyethylene Glycol 3350 17 Gm Packet) 17 gm PO DAILYP PRN PRN Reason: Constipation Last Admin: 01/19/22 17:19 Dose: 17 gm Potassium Chloride (Potassium Chloride 20 Meq Tablet) 40 meq PO UD PRN PRN Reason: Potssium is 3-3.5 Potassium Chloride (Potassium Chloride 20 Meq Tablet) 40 meq PO UD PRN PRN Reason: Potassium < 3 Promethazine HCl (Promethazine 25 Mg/Ml Vial) 12.5 mg IV Q6HP PRN PRN Reason: Nausea And Vomiting Senna (Sennosides 1 Tablet) 2 tab PO DAILYP PRN PRN Reason: Constipation Last Admin: 01/19/22 22:28 Dose: 2 tab Simvastatin (Simvastatin 40 Mg Tablet) 40 mg PO DAILY [facility] Last Admin: 01/21/22 08:29 Dose: 40 mg Sodium Chloride (0.9 % Sodium Chloride 10 Ml Syringe) 10 ml IV Q8 [facility] Last Admin: 01/22/22 05:27 Dose: 10 ml Sodium Chloride (0.9 % Sodium Chloride 10 Ml Syringe) 10 ml IV UD PRN PRN Reason: FLUSH Last Admin: 01/20/22 15:49 Dose: 10 ml Sodium Chloride (0.9 % Sodium Chloride 10 Ml Syringe) 10 ml IV Q12 [facility] Last Admin: 01/21/22 21:33 Dose: 10 ml Sodium Chloride (0.9 % Sodium Chloride 10 Ml Syringe) 10 ml IV Q8 [facility] Last Admin: 01/22/22 05:27 Dose: 10 ml A/P Narrative A/P Narrative: * Cellulitis lower extremity polymicrobial culture, de-escalate antibiotic to Augmentin to continue through 01/26, wound care per surgery, patient follows up with Dr. Oseguera as outpatient. Anticipate SNF placement * Venous stasis ulcer varicose vein continue limb elevation/rehab/supportive treatments * History of COPD on bronchodilators, home oxygen on 2 L * Severe deconditioning continue PT OT/nutrition support * HLD on statin * Morbid obesity, dietary intervention/weight loss reduction strategies, recommend lifestyle modification * DM type II SSI/dapagliflozin/CC diet * Hypertension on clonidine/Coreg/losartan * Neuropathy on gabapentin Plan * Switch to oral Augmentin * Wound care/limb elevation/supportive treatments * Pre-existing medical condition management home medications * Await SNF placement versus transfer to home with home health services/wound care based on PT eval and clinical progress Time Spent With Patient Time: Total time spent is greater than 50% in coordination of care (as documented) at patient's floor/unit and/or counseling patient: Total time spent with greater than 50% in coordination of care (as documented) at patient's floor/unit and/or counseling patient:: 25 - 35 minutes QUALITY Stroke Symptom Onset Unknown: No VTE Deep Vein Thrombosis/Pulmonary Embolism Present on Admission: No
[2022-01-22] MEDS: LOSARTAN 50 MG TABLET PO SCH (08:28)
--- NOTE | 2022-01-22 12:54 | Behavioral Health Consult ---
HPI History of Present Illness Patient information: Note initiated : 01/22/22 at 12:52 pm History of present illness: Name:Cony Baig :1950 Date:01/22/22 Time:2:05pm [employer] Location of patient: [place] Location of doctor:[facility] This evaluation was conducted via telepsychiatry with the assistance of onsite staff CC: follow up History of Present Illness: 71 y.o F with psychiatric history of depression admitted for management of lower extremity cellulitis and poor wound care. Psychiatry was consulted on 01/19 for capacity evaluation(please see notes for details). Re-eval for capacity is requested today. Per nurse SNF has been recommended but she is wanting to go home instead. She is A&Ox4. She is requesting to go home with home health because she does not want to go toa SNF that is too far from home(she has animals). She also states she is willing to do home health/PT services and outpatient wound care. She understands that her wounds could get worse/not heal properly if she doesnt go to SNF . She believes that with home health care she should be fine. She states if for some reason there is no improvement with home health services, at that time, she would consider SNF. She reports she has felt sad secondary to multiple loses over the last few years. Most recently, her sister/only living sibling and that has been difficult and also interfered with how she was caring for herself. She made a request for a counselor. She states she sees someone at [facility]? But would want to see someone else. No SI, HI or AVH. Psych Meds: None per review of MAR Mental Status Exam: Appearance and attire: decently groomed, appears stated age Attitude and behavior: cooperative and calm Speech: normal volume, rate and tone Mood: sad Affect: constricted Association and thought processes: organized Thought content: no SI, no HI Perception: no AVH, no evidence of delusions Sensorium, memory, and orientation: A&Ox3 Intellectual functioning: average Insight and judgment:fair Impression/Risk Assessment: 71 y.o F with psychiatric history of depression admitted for management of lower extremity cellulitis and poor wound care. Psychiatry consulted for decision making capacity specifically regarding discharge planning. At this time, patient does have the capacity to make this decision. Decisional capacity is a unique evaluation of the cognitive process by which a person approaches a unique decision at a specific point in time. It is possible for an individual to have decisional capacity about one circumstance, but not another, at the same point in time; or to have decisional capacity about a decision when at a previous time it did not appear to be present. Please realize that decision-making capacity is specific to a particular question or treatment. It does not generalize to include other healthcare decisions . Ultimately, primary provider takes responsibility for proceeding based on his/her clinical judgment of the patient's capacity for this procedure/treatment Diagnosis: Other specified depressive episodes Treatment Recommendations: Psychiatric Clearance: yes. No indication for psychiatric hospitalization. Recommend outpatient counselling referral Pharmacological Per previous psych consult note, she was to be started on Zoloft and Seroquel. This was not in SEP/. I will start Zoloft 50mg QHs for now. Observation level no indication for 1:1 Therapy: Supportive Mary Ayala MD Psychiatrist [facility] All Active Problems (Updated 01/17/22 @ 14:05 by Felisha Carrasco MD) History of congestive heart failure (Acute) Diabetes mellitus type 2 in obese (Acute) Stasis edema with ulcer of both lower extremities (Acute) Cellulitis of both lower extremities (Acute) Stasis dermatitis of left lower extremity due to peripheral venous hypertension (Acute) Sepsis (Acute) Cellulitis (Acute) Cellulitis of left leg (Acute) Hypertensive urgency (Acute) Restrictive lung disease (Acute) Acute bilateral thoracic back pain (Acute) Contusion of back wall of thorax (Acute) Infected wound (Acute) Elevated lactic acid level (Acute) Non-compliance (Acute) Edema of both lower extremities (Acute) Acute exacerbation of CHF (congestive heart failure) (Acute) Acute exacerbation of chronic obstructive pulmonary disease (Acute) Hypoxia (Acute) Poor sleep hygiene (Chronic) Hypertension (Chronic) Nocturnal hypoxemia (Chronic) Pulmonary hypertension (Chronic) Dyspnea (Chronic) Bereavement (Chronic) Allergic rhinitis (Chronic) Foot pain (Chronic) Arthritis of hand (Chronic) Tenosynovitis of wrist (Chronic) Hypokalemia (Chronic) CKD (chronic kidney disease), stage III (Chronic) Obesity (Chronic) Urinary incontinence, mixed (Chronic) Open wound of lower limb (Chronic) Microalbuminuric diabetic nephropathy (Chronic) Peripheral venous insufficiency (Chronic) Ganglion of wrist (Chronic) Fecal occult blood test positive (Chronic) Hypertriglyceridemia (Chronic) CHF (congestive heart failure) (Chronic) Diastolic heart failure (Chronic) Morbid obesity (Chronic) Ulceration (Chronic) Pain in left leg (Chronic) Weakness (Chronic) Abnormal gait (Chronic) Calluse (Chronic) Urinary incontinence (Chronic) Intermittent claudication (Chronic) Edema, lower extremity (Chronic) Loss of taste (Chronic) Fatigue (Chronic) Anemia (Chronic) Osteoarthritis (Chronic) PVD (peripheral vascular disease) (Chronic) Hyperlipidemia (Chronic) DM II (diabetes mellitus, type II), controlled (Chronic) COPD (chronic obstructive pulmonary disease) (Chronic) Arthritis (Chronic) Allergic bronchitis (Chronic) SOB (shortness of breath) (Chronic) Cellulitis (Chronic) Edema extremities (Chronic) Diabetes (Chronic) Chronic hyperkalemia (Chronic) Venous stasis ulcer of both lower extremities without varicose veins (Chronic) Cellulitis and abscess of leg (Chronic) Diabetic ankle ulcer (Chronic) Asthma with exacerbation (Chronic) Dermatitis fungal (Chronic) CHF (congestive heart failure) (Chronic) Medical History Abnormal gait Allergic bronchitis Allergic rhinitis Anemia Arthritis Arthritis of hand Bereavement Calluse Cellulitis Patient already started on IV antibiotics Cellulitis and abscess of leg Excellent clinical improvement with chlorhexidene washes and topical skin moisturizer applications. CHF (congestive heart failure) Chronic hyperkalemia CKD (chronic kidney disease), stage III COPD (chronic obstructive pulmonary disease) Diabetes Diabetic ankle ulcer Diastolic heart failure DM II (diabetes mellitus, type II), controlled Dyspnea Edema extremities Will treat with spiral compression bandages and elevation of legs on pillows. Edema, lower extremity Fatigue Fecal occult blood test positive Foot pain Ganglion of wrist Hyperlipidemia Hypertriglyceridemia Hypokalemia Intermittent claudication Loss of taste Microalbuminuric diabetic nephropathy Morbid obesity Nocturnal hypoxemia Obesity Open wound of lower limb Osteoarthritis Knee Hip Pain in left leg Peripheral venous insufficiency Poor sleep hygiene PVD (peripheral vascular disease) Restrictive lung disease SOB (shortness of breath) Tenosynovitis of wrist Ulceration Bilateral Legs Urinary incontinence Urinary incontinence, mixed Venous stasis ulcer of both lower extremities without varicose veins Weakness Surgical History H/O skin graft left leg History of breast biopsy History of foot surgery History of hysterectomy History of rotator cuff surgery Family History Father Lung cancer Jaw cancer Diabetes Grandmother NV (myocardial infarction) Paternal HTN (hypertension) Paternal Family/Other Alzheimer's dementia Paternal Aunt Social History household members: other lives independently: Yes marital status: pets and animals: Yes pets and animals: dog(s) sexually active: No alcohol intake frequency: does not drink substance use type: does not use seatbelt use: always working smoke detector in home: Yes firearms in home: No MEDS/ALLERGIES Home Medications and Allergies Home Medications Medication Instructions Recorded Confirmed Type clonidine HCl 0.3 mg tablet 0.3 mg PO BID 04/28/16 01/16/22 History gabapentin 100 mg capsule 100 mg PO TID #90 caps 07/04/17 01/16/22 Rx losartan 25 mg tablet 100 mg PO QAM 07/25/19 01/16/22 History lovastatin 40 mg tablet 80 mg PO DAILY 07/25/19 01/16/22 History potassium chloride 10 mEq 40 meq PO .4XW 07/25/19 01/16/22 History tablet,extended release carvedilol 25 mg tablet 25 mg PO BID 12/26/19 01/16/22 History vitamin E 200 unit capsule 800 unit PO QDAY 12/26/19 01/16/22 History albuterol sulfate 90 mcg/actuation 1 inh inhalation QIDP PRN 09/02/20 01/16/22 History aerosol inhaler (Ventolin HFA) Shortness Of Breath salmeterol 50 mcg/dose blister 1 inh inhalation BID 09/02/20 01/16/22 History powder for inhalation (Serevent Diskus) furosemide 40 mg tablet 40 mg PO DAILY #30 tabs 09/04/20 01/16/22 Rx dapagliflozin 5 mg tablet (Farxiga) 5 mg PO QAM 09/22/20 01/16/22 History Allergies Allergy/AdvReac Type Severity Reaction Status Date / Time lidocaine AdvReac Intermediate Muscle Pain Verified 11/18/20 13:38 morphine AdvReac Intermediate Vomiting Verified 11/18/20 13:38 wool AdvReac Intermediate Rash Verified 11/18/20 13:38 acetaminophen [From [place]] AdvReac Mild Vomiting Verified 11/18/20 13:38 adhesive tape AdvReac Mild Rash Verified 11/18/20 13:38 hydrocodone [From [place]] AdvReac Mild Vomiting Verified 11/18/20 13:38 tramadol AdvReac Mild Vomiting Verified 11/18/20 13:38 Physical Examination Vital Signs Vital signs: Temp Pulse Resp BP Pulse Ox O2 Del Method O2 Flow Rate 97.3 F 75 20 130/72 95 2 01/22/22 11:19 01/22/22 03:59 01/22/22 11:19 01/22/22 11:19 01/22/22 11:19 01/22/22 11:19 01/22/22 07:01 Results Laboratory Findings CBC and BMP: 01/22/22 05:31 01/22/22 05:31 Abnormal lab findings: Abnormal Labs 01/16/22 01/16/22 01/16/22 04:08 04:08 04:17 Hgb Hct 45.5 H MCH 25.3 L MCHC 29.9 L RDW 17.4 H Plt Count 461 H Immature Gran % (Auto) POC VBG pH 7.45 H POC VBG pCO2 at Temp 40.1 L POC VBG pO2 POC Venous O2 Sat POC VBG Base Excess 4.0 H* VBG Lactic Acid 2.5 H Carbon Dioxide Anion Gap Creatinine Glucose 173 H Hemoglobin A1c Calcium Lactate Dehydrogenase C-Reactive Protein Total Protein Albumin 2.6 L Globulin 4.1 H Albumin/Globulin Ratio 0.6 L Triglycerides Urine Appearance Urine RBC Ur Squamous Epith Cells Urine Bacteria Urine Mucus Urine Yeast (Budding) 01/16/22 01/16/22 01/17/22 07:41 12:37 05:22 Hgb Hct MCH 25.3 L MCHC 28.2 L RDW 17.1 H Plt Count Immature Gran % (Auto) 0.7 H POC VBG pH POC VBG pCO2 at Temp 40.0 L POC VBG pO2 78 H POC Venous O2 Sat 95.0 H POC VBG Base Excess VBG Lactic Acid Carbon Dioxide Anion Gap Creatinine Glucose Hemoglobin A1c Calcium Lactate Dehydrogenase C-Reactive Protein Total Protein Albumin Globulin Albumin/Globulin Ratio Triglycerides Urine Appearance Cloudy A Urine RBC 5 H Ur Squamous Epith Cells 28 H Urine Bacteria Few A Urine Mucus Mod A Urine Yeast (Budding) Mod A 01/17/22 01/18/22 01/20/22 05:22 06:04 05:21 Hgb Hct MCH MCHC RDW Plt Count Immature Gran % (Auto) POC VBG pH POC VBG pCO2 at Temp POC VBG pO2 POC Venous O2 Sat POC VBG Base Excess VBG Lactic Acid Carbon Dioxide Anion Gap 7.0 L 7.0 L Creatinine 0.5 L 0.5 L Glucose 111 H 131 H Hemoglobin A1c 7.1 H Calcium 8.4 L Lactate Dehydrogenase 259 H C-Reactive Protein 5.20 H Total Protein 5.5 L Albumin 1.9 L 2.3 L Globulin Albumin/Globulin Ratio 0.5 L 0.6 L Triglycerides 234 H Urine Appearance Urine RBC Ur Squamous Epith Cells Urine Bacteria Urine Mucus Urine Yeast (Budding) 01/20/22 01/21/22 01/21/22 05:21 05:42 05:42 Hgb 10.2 L 10.4 L Hct MCH 25.2 L 25.7 L MCHC 28.7 L 28.7 L RDW 16.6 H 16.9 H Plt Count Immature Gran % (Auto) 0.6 H POC VBG pH POC VBG pCO2 at Temp POC VBG pO2 POC Venous O2 Sat POC VBG Base Excess VBG Lactic Acid Carbon Dioxide Anion Gap 7.0 L Creatinine 0.5 L Glucose 112 H Hemoglobin A1c Calcium Lactate Dehydrogenase C-Reactive Protein Total Protein 5.4 L Albumin 2.2 L Globulin Albumin/Globulin Ratio 0.7 L Triglycerides 219 H Urine Appearance Urine RBC Ur Squamous Epith Cells Urine Bacteria Urine Mucus Urine Yeast (Budding) 01/22/22 01/22/22 05:31 05:31 Hgb 10.5 L Hct MCH 25.4 L MCHC 28.9 L RDW 16.8 H Plt Count Immature Gran % (Auto) 0.7 H POC VBG pH POC VBG pCO2 at Temp POC VBG pO2 POC Venous O2 Sat POC VBG Base Excess VBG Lactic Acid Carbon Dioxide 34 H Anion Gap 5.0 L Creatinine 0.5 L Glucose 140 H Hemoglobin A1c Calcium Lactate Dehydrogenase 130 L C-Reactive Protein Total Protein 5.4 L Albumin 2.5 L Globulin Albumin/Globulin Ratio 0.9 L Triglycerides 199 H Urine Appearance Urine RBC Ur Squamous Epith Cells Urine Bacteria Urine Mucus Urine Yeast (Budding) Microbiology: Microbiology 01/16/22 04:08 Blood Blood Culture - Final 01/16/22 04:00 Blood Blood Culture - Final 01/16/22 06:26 Ankle - Left Gram Stain - Final 01/16/22 06:26 Ankle - Left Wound Culture - Final Bordetella Trematum Proteus vulgaris [place].Faecalis SS Phenolicus 01/16/22 06:26 Ankle - Right Gram Stain - Final 01/16/22 06:26 Ankle - Right Wound Culture - Final Proteus vulgaris Staphylococcus aureus 01/17/22 14:32 Leg - Lower Right Gram Stain - Final 01/17/22 14:32 Leg - Lower Right Wound Culture - Final 01/17/22 14:32 Leg - Lower Left Gram Stain - Final 01/17/22 14:32 Leg - Lower Left Wound Culture - Final 01/16/22 12:30 Nose MRSA (PCR) - Final A/P Time Spent With Patient Time: Total time spent is greater than 50% in coordination of care (as documented) at patient's floor/unit and/or counseling patient:
[2022-01-22] MEDS: AMOXICILLIN/POTASSIUM CLAV 875 MG TABLET PO SCH (16:50)
[2022-01-22] MEDS: SERTRALINE 50 MG TABLET PO SCH ×2 (19:56→20:00)
[2022-01-23] MEDS: HYDROcodone/APAP 5/325MG TABLET PO PRN ×4 (00:43→20:09)
[2022-01-23] MEDS: 0.9 % SODIUM CHLORIDE 10 ML SYRINGE IV SCH ×8 (06:06→20:08)
[2022-01-23 06:51] LABS: ALT/SGPT < 5 U/L (<40); AST/SGOT 7 U/L (<32); Albumin 2.6 gm/dL (3.2-5.2); Alkaline Phosphatase 65 U/L (39-117); Bilirubin,Direct < 0.2 mg/dL (0-0.3); Bilirubin,Total 0.2 mg/dL (0.1-1.0); Blood Urea Nitrogen 10 mg/dL (8-23); Calcium 8.8 mg/dL (8.6-10.4); Carbon Dioxide 35 mmol/L (22-30); Chloride 97 mmol/L (96-108); Globulin 2.7 gm/dL (2.2-3.7); Glomerular Filtration Rate 106; Glucose 116 mg/dL (70-105); Lactate Dehydrogenase 195 U/L (135-225); Phosphorous 3.6 mg/dL (2.5-4.5); Triglycerides 228 mg/dL (<150)
[2022-01-23 06:52] LABS: Basophils # (Auto) 0.05 K/mcL (0.00-0.30); Basophils % (Auto) 0.9 % (0.0-2.0); Eosinophils # (Auto) 0.25 K/mcL (0.00-0.70); Eosinophils % (Auto) 4.6 % (0.0-7.0); Hematocrit 37.9 % (34.1-44.9); Hemoglobin 10.9 g/dL (11.2-15.7); Lymphocytes # (Auto) 1.77 K/mcL (1.50-4.80); Lymphocytes % (Auto) 32.8 % (15.5-49.0); Mean Cell Volume 87.1 fL (80.0-100.0); Mean Corpuscular HGB Conc 28.8 g/dL (31.0-36.0); Mean Platelet Volume 9.7 fL (7.4-10.4); Monocytes # (Auto) 0.47 K/mcL (0.10-0.90); Monocytes % (Auto) 8.7 % (1.0-12.0); Neutrophils % (Auto) 52.3 % (38.0-78.0); Platelet Count 163 K/mcL (140-440); RBC 4.35 M/mcL (3.59-5.38); WBC 5.4 K/mcL (4.5-11.0)
[2022-01-23] MEDS: INSULIN LISPRO 1 UNIT/0.01 ML UNIT SQ SCH ×4 (07:55→20:08)
[2022-01-23] MEDS: CARVEDILOL 12.5 MG TABLET PO SCH ×2 (08:37→17:03)
[2022-01-23] MEDS: GABAPENTIN 100 MG CAPSULE PO SCH ×3 (08:37→20:08)
[2022-01-23] MEDS: AMOXICILLIN/POTASSIUM CLAV 875 MG TABLET PO SCH ×2 (08:37→17:03)
[2022-01-23] MEDS: cloNIDine HCL 0.1 MG TABLET PO SCH ×2 (08:37→20:07)
[2022-01-23] MEDS: LOSARTAN 50 MG TABLET PO SCH (08:37)
[2022-01-23] MEDS: SIMVASTATIN 40 MG TABLET PO SCH (08:37)
[2022-01-23] MEDS: DOCUSATE SODIUM 100 MG CAPSULE PO SCH ×2 (08:37→20:08)
--- NOTE | 2022-01-23 09:35 | Internal Med Progress Note ---
SUBJECTIVE Subjective Patient information: Note initiated : 01/23/22 at 9:33 am Service Date, if different from initiated Date: [] Patient: Cony Baig 71 y/o F admitted on 01/16/22 for lower extremity pain. Chief Complaint: [LE wounds, circumferential ulcerating] Principal diagnosis: Severe bilateral LE wounds Interval history: The patient was resting comfortably in bed while watching TV. We discussed disposition. She is happy with the progress she is made while inpatient. Constitutional Vitals: Vital Signs Temp Pulse Resp BP Pulse Ox O2 Del Method O2 Flow Rate 98.4 F 84 16 168/94 94 2 01/23/22 07:54 01/23/22 07:54 01/23/22 07:54 01/23/22 07:54 01/23/22 07:54 01/23/22 07:54 01/23/22 07:54 Period Temp Pulse Resp BP Sys/Najera Pulse Ox O2 Del Method O2 Flow Rate Last 24 Hr 97.2 F-98.4 F 68-84 16-20 130-168/67-94 91-97 Nasal Cannula- Room Air 2-2.0 Intake and Output 01/22/22 01/23/22 01/23/22 21:59 05:59 13:59 Intake Total 880 250 Output Total 5 Balance 875 250 Weight 117.526 kg Intake & Output: Intake & Output 01/22/22 01/23/22 01/23/22 21:59 05:59 13:59 Intake Total 880 250 Output Total 5 Balance 875 250 Weight 117.526 kg Intake: Oral 880 250 Output: # of times incontinent of urine 5 Other: Stool Size Small Stool Color Brown Stool Consistency Soft # Voids 5 1 # Bowel Movements 1 General appearance: morbidly obese OBJ DATA Labs CBC & Chem 7: 01/23/22 05:27 01/23/22 05:27 Labs: Abnormal Lab Results 01/23/22 01/23/22 01/22/22 05:27 05:27 05:31 Hgb 10.9 L 10.5 L MCH 25.1 L 25.4 L MCHC 28.8 L 28.9 L RDW 17.0 H 16.8 H Immature Gran % (Auto) 0.7 H 0.7 H Carbon Dioxide 35 H Anion Gap 5.0 L Creatinine 0.4 L Glucose 116 H Lactate Dehydrogenase Total Protein 5.3 L Albumin 2.6 L Albumin/Globulin Ratio Triglycerides 228 H 01/22/22 01/21/22 01/21/22 05:31 05:42 05:42 Hgb 10.4 L MCH 25.7 L MCHC 28.7 L RDW 16.9 H Immature Gran % (Auto) Carbon Dioxide 34 H Anion Gap 5.0 L 7.0 L Creatinine 0.5 L 0.5 L Glucose 140 H 112 H Lactate Dehydrogenase 130 L Total Protein 5.4 L 5.4 L Albumin 2.5 L 2.2 L Albumin/Globulin Ratio 0.9 L 0.7 L Triglycerides 199 H 219 H Meds: Medications Acetaminophen (Acetaminophen 325 Mg Tablet) 650 mg PO Q6HP PRN; Protocol PRN Reason: Per Pain Protocol/Fever > 101 Hydrocodone Bitart/Acetaminophen (Hydrocodone/Apap 5/325mg Tablet) 1 tab PO Q4HP PRN PRN Reason: PAIN LEVEL 3-6 Last Admin: 01/23/22 00:43 Dose: 1 tab Albuterol Sulfate (Albuterol Sulfate 200 Puff Inhaler) 1 puff INH QIDP PRN PRN Reason: Shortness Of Breath Albuterol/Ipratropium (Ipratropium/Albuterol 3 Ml Ampul.Neb) 3 ml NEB Q4HP PRN PRN Reason: Shortness Of Breath Amoxicillin/Clavulanate Potassium (Amoxicillin/Potassium Clav 875 Mg Tablet) [facility] Protocol Last Admin: 01/23/22 08:37 Dose: 875 mg Carvedilol (Carvedilol 12.5 Mg Tablet) [facility] Last Admin: 01/23/22 08:37 Dose: 25 mg Clonidine HCl (Clonidine Hcl 0.1 Mg Tablet) 0.3 mg PO BID [facility] Last Admin: 01/23/22 08:37 Dose: 0.3 mg Dextrose (Dextrose 50% 50 Ml Vial) 0 ml IV UD PRN PRN Reason: Per Sliding Scale Diagnostic Test (Pha) (Accu-Chek 1 Each Strip) 1 each FS ACHS [facility] Last Admin: 01/23/22 07:55 Dose: Not Given Diphenhydramine HCl (Diphenhydramine 50 Mg/Ml Vial) 25 mg IV Q6HP PRN PRN Reason: Allergic Symptoms Last Admin: 01/16/22 08:45 Dose: 25 mg Docusate Sodium (Docusate Sodium 100 Mg Capsule) 100 mg PO BID [facility] Last Admin: 01/23/22 08:37 Dose: 100 mg Enoxaparin Sodium (Enoxaparin 40 Mg/0.4 Ml Syringe) 40 mg SQ DAILY [facility] Last Admin: 01/22/22 08:15 Dose: Not Given Gabapentin (Gabapentin 100 Mg Capsule) 100 mg PO TID [facility] Last Admin: 01/23/22 08:37 Dose: 100 mg Glucose (Dextrose 31 Gm Oral.Susp) 15 gm PO PRN PRN PRN Reason: Hypoglycemia Heparin Sodium (Porcine) (Heparin Flush 10 Units/Ml 5 Ml Syringe) 2 ml IV Q12 [facility] Last Admin: 01/23/22 08:38 Dose: 2 ml Hydralazine HCl (Hydralazine 20 Mg/Ml Vial) 0 mg IV Q2HP PRN PRN Reason: Hypertension Last Admin: 01/17/22 04:18 Dose: 20 mg Potassium Chloride 40 meq/ (Dextrose) 520 mls @ 130 mls/hr IV UD PRN PRN Reason: Potassium < 3 Magnesium Sulfate (Magnesium Sulfate) 2 gm in 50 mls @ 50 mls/hr IV UD PRN PRN Reason: Magnesium </= 1.6 Insulin Human Lispro (Insulin Lispro 1 Unit/0.01 Ml Unit) 0 unit SQ ACHS [facility]; Protocol Last Admin: 01/23/22 07:55 Dose: Not Given Labetalol HCl (Labetalol 5 Mg/Ml Ml) 0 mg IV Q2HP PRN PRN Reason: Hypertension Losartan Potassium (Losartan 50 Mg Tablet) 100 mg PO QAM [facility] Last Admin: 01/23/22 08:37 Dose: 100 mg Metoclopramide HCl (Metoclopramide 10 Mg/2 Ml Vial) 10 mg IV Q6HP PRN PRN Reason: Nausea And Vomiting Morphine Sulfate (Morphine 4 Mg/Ml Vial) 0 mg IV Q3HP PRN PRN Reason: Pain Last Admin: 01/19/22 10:31 Dose: 3 mg Ondansetron HCl (Ondansetron 4 Mg/2 Ml Vial) 4 mg IV Q4HP PRN PRN Reason: Nausea And Vomiting Polyethylene Glycol (Polyethylene Glycol 3350 17 Gm Packet) 17 gm PO DAILYP PRN PRN Reason: Constipation Last Admin: 01/19/22 17:19 Dose: 17 gm Potassium Chloride (Potassium Chloride 20 Meq Tablet) 40 meq PO UD PRN PRN Reason: Potssium is 3-3.5 Potassium Chloride (Potassium Chloride 20 Meq Tablet) 40 meq PO UD PRN PRN Reason: Potassium < 3 Promethazine HCl (Promethazine 25 Mg/Ml Vial) 12.5 mg IV Q6HP PRN PRN Reason: Nausea And Vomiting Senna (Sennosides 1 Tablet) 2 tab PO DAILYP PRN PRN Reason: Constipation Last Admin: 01/19/22 22:28 Dose: 2 tab Sertraline HCl (Sertraline 50 Mg Tablet) 50 mg PO HS [facility] Last Admin: 01/22/22 20:00 Dose: Not Given Simvastatin (Simvastatin 40 Mg Tablet) 40 mg PO DAILY [facility] Last Admin: 01/23/22 08:37 Dose: 40 mg Sodium Chloride (0.9 % Sodium Chloride 10 Ml Syringe) 10 ml IV Q8 [facility] Last Admin: 01/23/22 06:06 Dose: Not Given Sodium Chloride (0.9 % Sodium Chloride 10 Ml Syringe) 10 ml IV UD PRN PRN Reason: FLUSH Last Admin: 01/20/22 15:49 Dose: 10 ml Sodium Chloride (0.9 % Sodium Chloride 10 Ml Syringe) 10 ml IV Q12 [facility] Last Admin: 01/22/22 19:56 Dose: 10 ml Sodium Chloride (0.9 % Sodium Chloride 10 Ml Syringe) 10 ml IV Q8 [facility] Last Admin: 01/23/22 06:06 Dose: Not Given A/P Assessment and plan (1) Venous stasis ulcer of both lower extremities without varicose veins: Status: Chronic (2) Cellulitis and abscess of leg: Status: Chronic Comment: Excellent clinical improvement with chlorhexidene washes and topical skin moisturizer applications. (3) COPD (chronic obstructive pulmonary disease): Status: Chronic Qualifiers: COPD type: unspecified COPD Qualified Code(s): J44.9 - Chronic obstructive pulmonary disease, unspecified (4) PVD (peripheral vascular disease): Status: Chronic (5) Diastolic heart failure: Status: Chronic Narrative A/P Narrative: A/P Narrative: * Cellulitis lower extremity polymicrobial culture, de-escalate antibiotic to Augmentin to continue through 01/26, wound care per surgery, patient follows up with Dr. Oseguera as outpatient. Anticipate SNF placement * Venous stasis ulcer varicose vein continue limb elevation/rehab/supportive treatments * History of COPD on bronchodilators, home oxygen on 2 L * Severe deconditioning continue PT OT/nutrition support * HLD on statin * Morbid obesity, dietary intervention/weight loss reduction strategies, recommend lifestyle modification * DM type II SSI/dapagliflozin/CC diet * Hypertension on clonidine/Coreg/losartan * Neuropathy on gabapentin Plan * Switched to oral Augmentin * Wound care/limb elevation/supportive treatments * Pre-existing medical condition management home medications * Await SNF placement versus transfer to home with home health services/wound care based on PT eval and clinical progress 01/17: The patient's wound culture reveals gram-negative bacillus and few gram- positive cocci in pairs. MRSA swab was negative and vancomycin will be discontinued. We will continue cefepime for the time being and may switch to Zosyn. The patient at this point requires aggressive wound care. General surgery been consulted for consideration of debridement. At this point, she is unable to look after herself and her RV as she was found to have maggots/ants in her wounds. She was found to be severely disheveled. APS report will be filed . Of note, we will repeat A1c to check the status of her diabetes mellitus type 2 as she is diet controlled. She also likely has COPD/KAYLEN and was requiring supplemental O2. 01/18: General surgery will likely be taking the patient to the OR today for debridement. CT of the lower extremities is pending. This is to better assess her vascular anatomy as a TBI was difficult to perform. Of note, the patient has a PICC in place due to poor vascular access and the likely need for long- term parenteral antibiotics. The patient stated that she was a diet-controlled diabetic however an A1c was checked and it was 7.1. She will need to be on insulin sliding scale. 01/19: CTA did not reveal severe stenotic atherosclerotic disease of the lower extremities. There is no evidence of PVD which is reassuring. Continue empiric antibiotic coverage, wound care and have general surgery follow-up for zunilda ridement of her lower extremity wounds. The patient will be needing placement to retirement facility as she is unable to look after herself at home in her RV. 01/20-patient seen in room. Ongoing wound dressing/management per surgery. Telepsych consultation completed and currently on Seroquel 100 at bedtime/Zoloft 50 at bedtime. Continuing cefepime for polymicrobial including Proteus/staph cultures from wound/cellulitis. Continue dietary intervention/therapies as tolerated. 01/21-patient doing a lot better during his day. Continuing therapy/wound care per surgery. On antibiotic coverage. De-escalate in 24 hours. Patient nontoxic, clinically improved, tolerating diet and therapies. Anticipate discharge in the next 72 hours. No overnight fever chills or concerns per nursing staff 01/22-patient doing well. No overnight events. Ongoing wound care. Anticipate discharge to SNF. Case management coordinating. No overnight events including fever chills nausea vomiting. Stable labs and hemodynamics 01/23: The patient never required surgical debridement. Her Zosyn has been switched to Augmentin. We will touch base with social work and case management tomorrow regarding disposition. Time Spent With Patient Time: Total time spent is greater than 50% in coordination of care (as documented) at patient's floor/unit and/or counseling patient: Total time spent with greater than 50% in coordination of care (as documented) at patient's floor/unit and/or counseling patient:: 25 - 35 minutes QUALITY Stroke Symptom Onset Unknown: No VTE Deep Vein Thrombosis/Pulmonary Embolism Present on Admission: No
[2022-01-23] MEDS: ENOXAPARIN 40 MG/0.4 ML SYRINGE SQ SCH (10:16)
[2022-01-23] MEDS: SERTRALINE 50 MG TABLET PO SCH (20:08)
[2022-01-24] MEDS: 0.9 % SODIUM CHLORIDE 10 ML SYRINGE IV SCH ×3 (06:02→08:24)
[2022-01-24 06:39] LABS: Basophils # (Auto) 0.04 K/mcL (0.00-0.30); Basophils % (Auto) 0.7 % (0.0-2.0); Eosinophils # (Auto) 0.31 K/mcL (0.00-0.70); Eosinophils % (Auto) 5.5 % (0.0-7.0); Hematocrit 37.3 % (34.1-44.9); Hemoglobin 10.7 g/dL (11.2-15.7); Lymphocytes % (Auto) 37.4 % (15.5-49.0); Mean Cell Volume 88.8 fL (80.0-100.0); Mean Corpuscular HGB Conc 28.7 g/dL (31.0-36.0); Mean Platelet Volume 9.3 fL (7.4-10.4); Monocytes # (Auto) 0.53 K/mcL (0.10-0.90); Monocytes % (Auto) 9.4 % (1.0-12.0); Neutrophils % (Auto) 46.3 % (38.0-78.0); Platelet Count 192 K/mcL (140-440); Red Cell Distribution Width 17.3 % (11.5-14.5); WBC 5.6 K/mcL (4.5-11.0)
[2022-01-24] MEDS: INSULIN LISPRO 1 UNIT/0.01 ML UNIT SQ SCH ×2 (07:03→11:50)
[2022-01-24] MEDS: CARVEDILOL 12.5 MG TABLET PO SCH (08:23)
[2022-01-24] MEDS: GABAPENTIN 100 MG CAPSULE PO SCH ×2 (08:23→14:40)
[2022-01-24] MEDS: DOCUSATE SODIUM 100 MG CAPSULE PO SCH (08:23)
[2022-01-24] MEDS: LOSARTAN 50 MG TABLET PO SCH (08:23)
[2022-01-24] MEDS: AMOXICILLIN/POTASSIUM CLAV 875 MG TABLET PO SCH (08:23)
[2022-01-24] MEDS: SIMVASTATIN 40 MG TABLET PO SCH (08:24)
[2022-01-24] MEDS: ENOXAPARIN 40 MG/0.4 ML SYRINGE SQ SCH (08:24)
[2022-01-24] MEDS: cloNIDine HCL 0.1 MG TABLET PO SCH (08:24)
[2022-01-24] MEDS ORDERED: CIPROFLOXACIN 500 MG TABLET PO SCH (09:00)
[2022-01-24] MEDS: HYDROcodone/APAP 5/325MG TABLET PO PRN (10:03)
--- NOTE | 2022-01-24 10:35 | Discharge Summary ---
Discharge Provider Provider IMPORTANT FOLLOW-UP INFORMATION FOR PCP: 1. Follow up with wound care 2. Follow up CBC after completion of antibiotics 3. Social work outpatient follow up Patient information: Note initiated : 01/24/22 at 10:34 am Service Date, if different from initiated Date: [] Patient: Cony Baig 71 y/o F admitted on 01/16/22 for lower extremity pain. Chief Complaint: [Non healing wounds] Date of admission: 01/16/22 08:16 Discharge date: 01/24/22 Primary care physician: Nathan Garcia Consults: 01/16/22 Consult to Physician [CONS] Stat Comment: Sepsis secondary to cellulitis and ulcers Consulting Provider: Carlos Manuel Frank Reason For Exam: Physician to Consult 01/16/22 06:53 Consult to Physician [CONS] Stat Comment: Consulting Provider: Ronal Oseguera Reason For Exam: Physician to Consult 01/17/22 12:40 Consult to Physician [CONS] Routine Comment: Consulting Provider: Hunter Freeman Reason For Exam: bilateral leg wounds 01/17/22 14:56 Consult to Physician [CONS] Routine Comment: Consulting Provider: [facility] Reason For Exam: Physician to Consult 01/20/22 10:38 Consult to Physician [CONS] Routine Comment: snf Consulting Provider: [facility] Reason For Exam: Physician to Consult Attending physician on discharge: Spring Francisco COURSE Hospital Course Hospital course: A/P Narrative: * Cellulitis lower extremity polymicrobial culture, de-escalate antibiotic to Augmentin to continue through 01/26, wound care per surgery, patient follows up with Dr. Oseguera as outpatient. Anticipate SNF placement * Venous stasis ulcer varicose vein continue limb elevation/rehab/supportive treatments * History of COPD on bronchodilators, home oxygen on 2 L * Severe deconditioning continue PT OT/nutrition support * HLD on statin * Morbid obesity, dietary intervention/weight loss reduction strategies, recommend lifestyle modification * DM type II SSI/dapagliflozin/CC diet * Hypertension on clonidine/Coreg/losartan * Neuropathy on gabapentinPlan * Switched to oral Augmentin * Wound care/limb elevation/supportive treatments * Pre-existing medical condition management home medications * Await SNF placement versus transfer to home with home health services/wound care based on PT eval and clinical progress 01/17: The patient's wound culture reveals gram-negative bacillus and few gram- positive cocci in pairs. MRSA swab was negative and vancomycin will be discontinued. We will continue cefepime for the time being and may switch to Zosyn. The patient at this point requires aggressive wound care. General surgery been consulted for consideration of debridement. At this point, she is unable to look after herself and her RV as she was found to have maggots/ants in her wounds. She was found to be severely disheveled. APS report will be filed. Of note, we will repeat A1c to check the status of her diabetes mellitus type 2 as she is diet controlled. She also likely has COPD/KAYLEN and was requiring supplemental O2. 01/18: General surgery will likely be taking the patient to the OR today for debridement. CT of the lower extremities is pending. This is to better assess her vascular anatomy as a TBI was difficult to perform. Of note, the patient has a PICC in place due to poor vascular access and the likely need for long- term parenteral antibiotics. The patient stated that she was a diet-controlled diabetic however an A1c was checked and it was 7.1. She will need to be on insulin sliding scale. 01/19: CTA did not reveal severe stenotic atherosclerotic disease of the lower extremities. There is no evidence of PVD which is reassuring. Continue empiric antibiotic coverage, wound care and have general surgery follow-up for debridement of her lower extremity wounds. The patient will be needing placement to assisted facility as she is unable to look after herself at home in her RV. 01/20-patient seen in room. Ongoing wound dressing/management per surgery. Telepsych consultation completed and currently on Seroquel 100 at bedtime/Zoloft 50 at bedtime. Continuing cefepime for polymicrobial including Proteus/staph cultures from wound/cellulitis. Continue dietary intervention/therapies as tolerated. 01/21-patient doing a lot better during his day. Continuing therapy/wound care per surgery. On antibiotic coverage. De-escalate in 24 hours. Patient nontoxic, clinically improved, tolerating diet and therapies. Anticipate discha rge in the next 72 hours. No overnight fever chills or concerns per nursing staff 01/22-patient doing well. No overnight events. Ongoing wound care. Anticipate discharge to SNF. Case management coordinating. No overnight events including fever chills nausea vomiting. Stable labs and hemodynamics 01/23: The patient never required surgical debridement. Her Zosyn has been switched to Augmentin. We will touch base with social work and case management tomorrow regarding disposition. 01/24: Patient will be discharged on cipro/augmentin for total of 14 days to cover the species below. Ongoing aggressive wound care with the help of home health services. The patient will be discharged home today and f/u with PCP within 1-2 weeks' time. Discharge diagnosis: Severe bilateral lower extremity ulcerating circumferential wounds Reason for admission: Failure to thrive Pertinent studies/significant findings: 1. Gram Stain Final 01/20/22951 PRL Few Epis No WBCs No RBCs Few Gram Positive Bacilli Resembling Diphtheroids Few Gram Positive Cocci In Pairs Wound Culture Final 01/20/22 PRL Organism 1 Bordetella Trematum Organism 2 Proteus vulgaris Organism 3 Alcalig.Faecalis SS Phenolicus 2. Stain Final 01/19/22 PRL Few Epis Rare Polynuclear Cells Few RBCs Many Gram Positive Cocci in Clusters Few Gram Positive Bacilli Resembling Diphtheroids Wound Culture Final 01/19/22 PRL Organism 1 Proteus vulgaris Organism 2 Staphylococcus aureus Time Spent with Patient Time attestation: Total time spent providing and/or coordinating discharge services: Time spent: Greater than 30 minutes EXAM Constitutional Vitals: Temp Pulse Resp BP Pulse Ox O2 Del Method O2 Flow Rate 97.4 F 67 17 151/78 96 2 01/24/22 07:30 01/24/22 07:30 01/24/22 07:30 01/24/22 07:30 01/24/22 07:30 01/24/22 08:00 01/24/22 08:11 General appearance: average body habitus Head Head exam: Present atraumatic, normal inspection and normocephalic Eye Eye exam: Present EOMI, normal appearance and PERRL; Absent conjunctival injection ENT ENT exam: Present normal exam; Absent mucous membranes dry Neck Neck exam: Present full ROM; Absent lymphadenopathy Respiratory Respiratory exam: Present normal respiratory exam and CTAB; Absent decreased breath sounds, respiratory distress or wheezes Cardiovascular Cardiovascular exam: Present normal rate and rhythm and RRR; Absent JVD GI/Abdominal GI/Abdominal exam: Present normal bowel sounds and soft; Absent diminished bowel sounds, distended, guarding, mass, rebound or tenderness Neurological Exam Neurological exam: Present alert, CN II-XII intact and oriented X3 Psychiatric Psychiatric exam: Present normal affect and normal mood Skin Skin exam: Present intact and warm; Absent erythema, pallor, petechiae or rash Discharge Data Data Completed and Pending Labs on day of discharge: Labs from last 24 hours 01/24/22 05:27 WBC 5.6 RBC 4.20 Hgb 10.7 L Hct 37.3 MCV 88.8 MCH 25.5 L MCHC 28.7 L RDW 17.3 H Plt Count 192 MPV 9.3 Immature Gran % (Auto) 0.7 H Neut % (Auto) 46.3 Lymph % (Auto) 37.4 Irion % (Auto) 9.4 Eos % (Auto) 5.5 Baso % (Auto) 0.7 Lymph # (Auto) 2.10 Irion # (Auto) 0.53 Eos # (Auto) 0.31 Baso # (Auto) 0.04 Immature Gran # 0.04 Absolute Neutrophils 2.64 Discharge Plan Patient/Caregiver Discharge Instructions Activity: increase activity as tolerated Diet: Regular Diet Instructions: Wound Infection (DC), Chronic Wounds (DC) Prescriptions: New hydrocodone-acetaminophen 5-325 mg Tablet 1 tab PO Q4HP PRN (Reason: Pain Level 3-6) 30 Days Qty: 45 0RF ciprofloxacin HCl 500 mg Tablet 500 mg PO BID 6 Days Qty: 12 0RF amoxicillin-pot clavulanate 875-125 mg Tablet 875 mg PO BIDCC 6 Days Qty: 11 0RF Continued vitamin E 200 unit capsule 800 unit PO QDAY carvedilol 25 mg tablet 25 mg PO BID Label Comments: TAKE 1 TABLET BY MOUTH TWICE DAILY FOR 90 DAYS Farxiga 5 mg tablet 5 mg PO QAM clonidine HCl 0.3 MG tablet 0.3 mg PO BID potassium chloride 10 mEq tablet extended release 40 meq PO .4XW Label Comments: Pt stated: MWF she takes 40 meq all at once gabapentin 100 MG capsule 100 mg PO TID Qty: 90 0RF losartan 25 mg tablet 100 mg PO QAM lovastatin 40 mg tablet 80 mg PO DAILY Serevent Diskus 50 mcg/dose blister with device 1 inh INHALATION BID Label Comments: INHALE 1 PUFF BY MOUTH TWICE DAILY albuterol sulfate [Ventolin HFA] 90 mcg/actuation HFA aerosol inhaler 1 inh INHALATION QIDP PRN (Reason: Shortness Of Breath) Label Comments: INHALE 1 PUFF BY MOUTH 4 TIMES DAILY NEEDED furosemide 40 MG tablet 40 mg PO DAILY Qty: 30 0RF Follow Up Plan Follow up with: Nathan Garcia [Primary Care Provider] - Patient Disposition: Home Health Service Prognosis: Fair Rehab Potential: Fair I certify that the patient requires SNF services: No Overall status at discharge: patient is progressing back to baseline Discharge Orders: Discharge Order (Routine); Ordered 01/24/22 Ordered By: Spring VALDEZ VTE Deep Vein Thrombosis/Pulmonary Embolism Present on Admission: No
== END 2022-01-24 16:00 | DRG 299 ==
LOC: ED 03:19 → MEDSUR 03:19 → OBSVTOIN 08:16 → MEDSUR 08:16
PROVIDERS: ADMIT Internal Medicine; ATTEND Internal Medicine

== ENCOUNTER 2022-05-26 15:37 | Inpatient (IN) ==
[2022-05-26] MEDS ORDERED: AZITHROMYCIN 500 MG in DEXTROSE 5% IN WATER 250 ML IV ONE (15:55)
[2022-05-26] MEDS ORDERED: cefTRIAXone 1 GM in DEXTROSE 5% IN WATER 50 ML IV SCH (16:00)
[2022-05-26 16:16] LABS: POC Calcium, Ionized 1.05 (1.16-1.32); POC Creatinine 0.9 (0.6-1.2); POC Potassium 4.6 (3.3-5.1)
--- NOTE | 2022-05-26 16:18 | XRay Report ---
CLINICAL INFORMATION: Dyspnea COMPARISON: 05/02/2022 TECHNIQUE: Portable FINDINGS: The heart is moderately enlarged, but unchanged. Increased density in the retrocardiac region is likely a moderate hiatal hernia. Moderate patchy infiltrate, in both bases, have worsened considerably from the comparison examination less than one month prior. Pulmonary vessels are mildly distended the upper lobes.. Small bilateral pleural effusions noted. IMPRESSION: Moderate bibasilar infiltrates. Suspect aspiration. Mild underlying CHF Suspect moderate hiatal hernia Interpreted and Authenticated by: Rhys Wong 05/26/22
--- NOTE | 2022-05-26 17:04 | Emergency Department Note ---
SOB HPI General Chief Complaint: Shortness of Breath/Dyspnea Stated Complaint: Sob Time Seen by Provider: 05/26/22 15:41 Source: patient and EMS Mode of arrival: EMS Limitations: no limitations History of Present Illness HPI Narrative: Narrative: 71-year-old female presents the emergency department complaining of shortness of breath. She presents here via EMS. States that she has been more short of breath. She was here approximately 2 weeks ago started on antibiotics as she was doing fine out patiently said when she finished them she slowly it is gotten worse and worse having a harder time with shortness of breath. Says she feels like she cannot catch it at all she feels fevers. She is worried the pneumonia may have gotten worse. She called her primary care doctor's office who recommended coming here for evaluation. Patient states that she just does not feel well. She does have extensive history of both COPD, CHF, diabetes as well as multiple cardiac problems. Patient is denying any other symptoms otherwise. Related Data Home Medications Medication Instructions Recorded Confirmed clonidine HCl 0.3 mg tablet 0.3 mg PO BID 04/28/16 05/09/22 losartan 25 mg tablet 100 mg PO QAM 07/25/19 05/09/22 lovastatin 40 mg tablet 80 mg PO DAILY 07/25/19 05/09/22 carvedilol 25 mg tablet 25 mg PO BID 12/26/19 05/09/22 vitamin E 200 unit capsule 800 unit PO QDAY 12/26/19 05/09/22 albuterol sulfate 90 mcg/actuation 1 inh inhalation QIDP PRN 09/02/20 05/09/22 aerosol inhaler (Ventolin HFA) Shortness Of Breath salmeterol 50 mcg/dose blister 1 inh inhalation BID 09/02/20 05/09/22 powder for inhalation (Serevent Diskus) dapagliflozin 5 mg tablet (Farxiga) 5 mg PO QAM 09/22/20 05/09/22 potassium chloride 20 mEq 20 meq PO QAM 05/09/22 05/09/22 tablet,extended release Previous Rx's Medication Instructions Recorded gabapentin 100 mg capsule 100 mg PO TID #90 caps 07/04/17 furosemide 40 mg tablet 40 mg PO DAILY #30 tabs 09/04/20 azithromycin 250 mg tablet 250 mg PO ONCE #4 tabs 05/02/22 cefdinir 300 mg capsule 300 mg PO BID #20 caps 05/02/22 Allergies Allergy/AdvReac Type Severity Reaction Status Date / Time lidocaine AdvReac Intermediate Muscle Pain Verified 05/26/22 15:47 morphine AdvReac Intermediate Vomiting Verified 05/26/22 15:47 wool AdvReac Intermediate Rash Verified 05/26/22 15:47 acetaminophen [From [place]] AdvReac Mild Vomiting Verified 05/26/22 15:47 adhesive tape AdvReac Mild Rash Verified 05/26/22 15:47 hydrocodone [From [place]] AdvReac Mild Vomiting Verified 05/26/22 15:47 tramadol AdvReac Mild Vomiting Verified 05/26/22 15:47 Review of Systems ROS ROS Narrative: Narrative: All systems ED: reviewed and negative except as stated. PFSH Narrative Patient History Narrative: Narrative: Medical/Surgical/Family History All Active Problems (Updated 05/26/22 @ 18:35 by Alexis Webber DO) Acute respiratory failure with hypoxemia (Acute) Acute exacerbation of chronic obstructive pulmonary disease (Acute) Pneumonia (Acute) Cardiomegaly (Chronic) Pneumonia (Acute) History of congestive heart failure (Acute) Diabetes mellitus type 2 in obese (Acute) Stasis edema with ulcer of both lower extremities (Acute) Cellulitis of both lower extremities (Acute) Stasis dermatitis of left lower extremity due to peripheral venous hypertension (Acute) Sepsis (Acute) Cellulitis (Acute) Cellulitis of left leg (Acute) Hypertensive urgency (Acute) Restrictive lung disease (Chronic) Acute bilateral thoracic back pain (Acute) Contusion of back wall of thorax (Acute) Infected wound (Acute) Elevated lactic acid level (Acute) Non-compliance (Acute) Edema of both lower extremities (Acute) Acute exacerbation of CHF (congestive heart failure) (Acute) Acute exacerbation of chronic obstructive pulmonary disease (Acute) Hypoxia (Chronic) Poor sleep hygiene (Chronic) Hypertension (Chronic) Nocturnal hypoxemia (Chronic) Pulmonary hypertension (Chronic) Dyspnea (Chronic) Bereavement (Chronic) Allergic rhinitis (Chronic) Foot pain (Chronic) Arthritis of hand (Chronic) Tenosynovitis of wrist (Chronic) Hypokalemia (Chronic) CKD (chronic kidney disease), stage III (Chronic) Obesity (Chronic) Urinary incontinence, mixed (Chronic) Open wound of lower limb (Chronic) Microalbuminuric diabetic nephropathy (Chronic) Peripheral venous insufficiency (Chronic) Ganglion of wrist (Chronic) Fecal occult blood test positive (Chronic) Hypertriglyceridemia (Chronic) CHF (congestive heart failure) (Chronic) Diastolic heart failure (Chronic) Morbid obesity (Chronic) Ulceration (Chronic) Pain in left leg (Chronic) Weakness (Chronic) Abnormal gait (Chronic) Calluse (Chronic) Urinary incontinence (Chronic) Intermittent claudication (Chronic) Edema, lower extremity (Chronic) Loss of taste (Chronic) Fatigue (Chronic) Anemia (Chronic) Osteoarthritis (Chronic) PVD (peripheral vascular disease) (Chronic) Hyperlipidemia (Chronic) DM II (diabetes mellitus, type II), controlled (Chronic) COPD (chronic obstructive pulmonary disease) (Chronic) Arthritis (Chronic) Allergic bronchitis (Chronic) SOB (shortness of breath) (Chronic) Cellulitis (Chronic) Edema extremities (Chronic) Diabetes (Chronic) Chronic hyperkalemia (Chronic) Venous stasis ulcer of both lower extremities without varicose veins (Chronic) Cellulitis and abscess of leg (Chronic) Diabetic ankle ulcer (Chronic) Asthma with exacerbation (Chronic) Dermatitis fungal (Chronic) CHF (congestive heart failure) (Chronic) Medical History Abnormal gait Allergic bronchitis Allergic rhinitis Anemia Arthritis Arthritis of hand Bereavement Calluse Cardiomegaly Cellulitis Patient already started on IV antibiotics Cellulitis and abscess of leg Excellent clinical improvement with chlorhexidene washes and topical skin moisturizer applications. CHF (congestive heart failure) Chronic hyperkalemia CKD (chronic kidney disease), stage III COPD (chronic obstructive pulmonary disease) Diabetes Diabetic ankle ulcer Diastolic heart failure DM II (diabetes mellitus, type II), controlled Dyspnea Edema extremities Will treat with spiral compression bandages and elevation of legs on pillows. Edema, lower extremity Fatigue Fecal occult blood test positive Foot pain Ganglion of wrist Hyperlipidemia Hypertriglyceridemia Hypokalemia Intermittent claudication Loss of taste Microalbuminuric diabetic nephropathy Morbid obesity Nocturnal hypoxemia Obesity Open wound of lower limb Osteoarthritis Knee Hip Pain in left leg Peripheral venous insufficiency Poor sleep hygiene PVD (peripheral vascular disease) Restrictive lung disease SOB (shortness of breath) Tenosynovitis of wrist Ulceration Bilateral Legs Urinary incontinence Urinary incontinence, mixed Venous stasis ulcer of both lower extremities without varicose veins Weakness Surgical History H/O skin graft left leg History of breast biopsy History of foot surgery History of hysterectomy History of rotator cuff surgery Family History Father Lung cancer Jaw cancer Diabetes Grandmother AL (myocardial infarction) Paternal HTN (hypertension) Paternal Family/Other Alzheimer's dementia Paternal Aunt Social History Smoking Status: Never smoker Alcohol Intake Frequency: does not drink Substance Use: does not use Exam Narrative Narrative: Narrative: Vital signs noted General: Awake. Alert. No distress. Skin: Warm. Dry. No rash. HEENT: NCAT. PERRL. EOMI. No conjunctivitis. No nystagmus. No pharyngitis. Membranes moist. Neck: No PTP. Good ROM. No meningeal signs. No stridor. No thyromegaly. No JVD. Cardiovascular: RRR. No murmur. No rubs. No gallops. Respiratory: Mild respiratory distress with diminished coarse breath sounds throughout. Gastrointestinal: Abdomen soft. No tenderness. No distention. Normal bowel sounds. No palpable organomegaly or masses. Back: No deformity. No CVAT. Musculoskeletal: No tenderness. No swelling. No erythema. No edema. Good periphe ral pulses x 4 Lymphatic: No palpable adenopathy. Neurological: No focal neurological deficits observed. General Limitations: no limitations Course Vital Signs Vital signs: Vital Signs Temperature 99.0 F 05/26/22 15:43 Pulse Rate 80 05/26/22 15:43 Respiratory Rate 22 05/26/22 15:43 Blood Pressure 153/104 05/26/22 15:43 Pulse Oximetry (%) 95 05/26/22 15:43 Oxygen Delivery Method 05/26/22 15:43 Oxygen Flow Rate (L/min) 4 05/26/22 15:43 Temperature 99.0 F 05/26/22 15:43 Pulse Rate 72 05/26/22 18:21 Respiratory Rate 29 H 05/26/22 18:21 Blood Pressure 196/103 05/26/22 17:43 Pulse Oximetry (%) 93 05/26/22 18:21 Oxygen Delivery Method 05/26/22 16:32 Oxygen Flow Rate (L/min) 4 05/26/22 16:32 [facility] MDM Narrative Medical decision making narrative: Narrative: On exam is obviously short of breath. She is needing oxygen and said that she does have oxygen available at home but only use it whenever is needed she is been using it nonstop. When I was in the room actually turn the oxygen off and she dropped down to 78% on 4 L she went back up to about the mid 90s. Patient is probably have an a issue with pneumonia I think is just seated and she needs further IV antibiotics. When had got blood cultures basic labs including for procalcitonin, CBC chemistry very low suspicion for PE do not think it is warranted. EKG was done shows a sinus rhythm with no acute findings. Patient also is going to have a chest x-ray done. Chest x-ray was done and read by radiology as possible aspiration pneumonia as well as CHF and cardiomegaly. Patient was already started on antibiotics and went ahead and started her on Rocephin as well as azithromycin to cover community-acquired pneumonia. Also swab the patient for both COVID and influenza as well as RSV which is pending. VBG was done does show hypercapnia but lactate actually was normal pH was normal. I did not want a give patient fluids as this possibly could be early sepsis that she is not in septic shock but she does have history of CHF I do want not want to put her into fluid overload she is also has no lactic acidosis I do not think fluid rehydration at this time would be in her best interest. Patient's CBC actually showed no pneumonia. Procalcitonin was normal. Based on the x-ray and her symptoms I still think there may be an underlying pneumonia. She did have an elevated BNP of 10,000 so went ahead and gave her 40 mg of IV Lasix. CO2 is definitely elevated. This could all just be COPD exacerbation EMS did give Solu-Medrol as well as a DuoNeb. She did receive DuoNeb treatments. She unfortunately still requiring oxygen at pretty high level. She normally not on oxygen but her need has definitely increased. X-ray did show possible pneumonia says still think antibiotics would be needed. I think patient does need to be admitted unfortunately the hospitalist is backed up with admissions at this time I think we do have space here for patient be sig callum out to the nighttime physician pending speaking with hospitalist to be sure he accepts the patient EKG interpretation: EKG done at 1608 interpreted by myself shows a sinus rhythm rate 64, QRS 163, QTc 46. Is no acute ST changes no acute T wave changes no signs of ischemia. No signs of hypertrophy, heart strain, there is a left bundle branch block but no other blocks. No WPW/Brugada/HOCM. Impression normal sinus EKG with left bundle branch block but no ischemia Lab Data Result diagrams: 05/26/22 16:31 Labs: Lab Results 05/26/22 05/26/22 05/26/22 Range/Units 16:13 16:15 16:31 WBC 5.0 (4.5-11.0) K/mcL RBC 4.56 (3.59-5.38) M/mcL Hgb 13.1 (11.2-15.7) g/dL Hct 44.0 (34.1-44.9) % POC Hct 42.0 (36-48) MCV 96.5 (80.0-100.0) fL MCH 28.7 (26.0-34.0) pg MCHC 29.8 L (31.0-36.0) g/dL RDW 14.6 H (11.5-14.5) % Plt Count 150 (140-440) K/mcL MPV 10.4 (8.8-12.5) fL Immature Gran % (Auto) 0.2 (0.0-0.5) % Neut % (Auto) 58.3 (38.0-78.0) % Lymph % (Auto) 29.7 (15.5-49.0) % Ward % (Auto) 7.2 (1.0-12.0) % Eos % (Auto) 4.2 (0.0-7.0) % Baso % (Auto) 0.4 (0.0-2.0) % Lymph # (Auto) 1.49 L (1.50-4.80) K/mcL Ward # (Auto) 0.36 (0.10-0.90) K/mcL Eos # (Auto) 0.21 (0.00-0.70) K/mcL Baso # (Auto) 0.02 (0.00-0.30) K/mcL Immature Gran # 0.01 (0.00-0.05) K/mcl Absolute Neutrophils 2.92 (1.80-8.00) K/mcL POC VBG pH 7.43 H (7.32-7.42) POC VBG pCO2 at Temp 70.3 H* (41-51) POC VBG pO2 97 H (25-40) POC VBG HCO3 46.3 H* (24-28) POC VBG Total CO2 48.0 H* (25-29) POC Venous O2 Sat 97.0 H (40-70) POC VBG Base Excess 22.0 H* (-2-2) VBG Lactic Acid 0.9 (0.5-2) POC Sodium 139 (133-145) POC Potassium 4.6 (3.3-5.1) POC Chloride 93 L (96-108) POC Total CO2 43.0 H* (22-30) POC BUN 17 (6-20) POC Creatinine 0.9 (0.6-1.2) POC Glucose 144 H (70-105) POC WB Ioniz Calcium 1.05 L (1.16-1.32) Magnesium (1.6-2.5) mg/dL NT-Pro-B Natriuret Pep (<125.0) pg/mL Procalcitonin (<0.10) ng/mL 05/26/22 05/26/22 Range/Units 16:31 16:31 WBC (4.5-11.0) K/mcL RBC (3.59-5.38) M/mcL Hgb (11.2-15.7) g/dL Hct (34.1-44.9) % POC Hct (36-48) MCV (80.0-100.0) fL MCH (26.0-34.0) pg MCHC (31.0-36.0) g/dL RDW (11.5-14.5) % Plt Count (140-440) K/mcL MPV (8.8-12.5) fL Immature Gran % (Auto) (0.0-0.5) % Neut % (Auto) (38.0-78.0) % Lymph % (Auto) (15.5-49.0) % Ward % (Auto) (1.0-12.0) % Eos % (Auto) (0.0-7.0) % Baso % (Auto) (0.0-2.0) % Lymph # (Auto) (1.50-4.80) K/mcL Ward # (Auto) (0.10-0.90) K/mcL Eos # (Auto) (0.00-0.70) K/mcL Baso # (Auto) (0.00-0.30) K/mcL Immature Gran # (0.00-0.05) K/mcl Absolute Neutrophils (1.80-8.00) K/mcL POC VBG pH (7.32-7.42) POC VBG pCO2 at Temp (41-51) POC VBG pO2 (25-40) POC VBG HCO3 (24-28) POC VBG Total CO2 (25-29) POC Venous O2 Sat (40-70) POC VBG Base Excess (-2-2) VBG Lactic Acid 0.7 (0.5-2) POC Sodium (133-145) POC Potassium (3.3-5.1) POC Chloride (96-108) POC Total CO2 (22-30) POC BUN (6-20) POC Creatinine (0.6-1.2) POC Glucose (70-105) POC WB Ioniz Calcium (1.16-1.32) Magnesium 2.4 (1.6-2.5) mg/dL NT-Pro-B Natriuret Pep 93866.0 H (<125.0) pg/mL Procalcitonin 0.05 (<0.10) ng/mL Discharge Plan Patient/Caregiver Discharge Instructions Pt seen by REINFORCEMENT MAKER/PA only: No Clinical Impression: Acute respiratory failure with hypoxemia, Acute exacerbation of chronic obstructive pulmonary disease Pneumonia Qualifiers: Pneumonia type: due to unspecified organism Laterality: bilateral Lung location: unspecified part of lung Qualified Code(s): J18.9 - Pneumonia, unspecified organism Activity: increase activity as tolerated Patient Disposition: Still a Patient Condition: Fair Follow up with: Roxana Oliveira ARNP [Primary Care Provider] - Prescriptions: No Action vitamin E 200 unit capsule 800 unit PO QDAY carvedilol 25 mg tablet 25 mg PO BID Label Comments: TAKE 1 TABLET BY MOUTH TWICE DAILY FOR 90 DAYS Farxiga 5 mg tablet 5 mg PO QAM potassium chloride 20 mEq tablet extended release 20 meq PO QAM Breztri Aerosphere 160-9-4.8 mcg/actuation HFA aerosol inhaler 0RF clonidine HCl 0.3 MG tablet 0.3 mg PO BID gabapentin 100 MG capsule 100 mg PO TID Qty: 90 0RF losartan 25 mg tablet 100 mg PO QAM lovastatin 40 mg tablet 80 mg PO DAILY Serevent Diskus 50 mcg/dose blister with device 1 inh INHALATION BID Label Comments: INHALE 1 PUFF BY MOUTH TWICE DAILY albuterol sulfate [Ventolin HFA] 90 mcg/actuation HFA aerosol inhaler 1 inh INHALATION QIDP PRN (Reason: Shortness Of Breath) Label Comments: INHALE 1 PUFF BY MOUTH 4 TIMES DAILY NEEDED furosemide 40 MG tablet 40 mg PO DAILY Qty: 30 0RF cefdinir 300 mg capsule 300 mg PO BID Qty: 20 0RF azithromycin 250 mg tablet 250 mg PO ONCE Qty: 4 0RF
[2022-05-26 17:18] LABS: Basophils # (Auto) 0.02 K/mcL (0.00-0.30); Basophils % (Auto) 0.4 % (0.0-2.0); Eosinophils # (Auto) 0.21 K/mcL (0.00-0.70); Eosinophils % (Auto) 4.2 % (0.0-7.0); Hemoglobin 13.1 g/dL (11.2-15.7); Lymphocytes # (Auto) 1.49 K/mcL (1.50-4.80); Lymphocytes % (Auto) 29.7 % (15.5-49.0); Mean Cell Volume 96.5 fL (80.0-100.0); Mean Corpuscular HGB Conc 29.8 g/dL (31.0-36.0); Mean Platelet Volume 10.4 fL (8.8-12.5); Monocytes # (Auto) 0.36 K/mcL (0.10-0.90); Monocytes % (Auto) 7.2 % (1.0-12.0); Neutrophils % (Auto) 58.3 % (38.0-78.0); Platelet Count 150 K/mcL (140-440); RBC 4.56 M/mcL (3.59-5.38); Red Cell Distribution Width 14.6 % (11.5-14.5)
[2022-05-26] MEDS ORDERED: IPRATROPIUM/ALBUTEROL 3 ML AMPUL.NEB NEB ONE (17:48)
[2022-05-26] MEDS ORDERED: FUROSEMIDE 40 MG/4 ML VIAL IV ONE (17:48)
--- NOTE | 2022-05-26 18:19 | EKG ---
[facility] Test Date: 2022-05-26 Pat Name: Cony Baig Department: ED Room: Gender: Female Lan [place] [facility] [place] 1950 Requested By: Alexis Webber Order Number: [id number] Reading MD: Abdulaziz Ballard Measurements Intervals [place] Rate: 64 P: MO: QRS: 181 QRSD: 163 T: 109 QT: 471 QTc: 486 Interpretive Statements Junctional rhythm Nonspecific intraventricular conduction delay Abnormal T, consider ischemia, lateral leads Electronically Signed On 05-26-2022 18:19:11 PST by Abdulaziz Ballard /store/M0/[id number]
[2022-05-26] MEDS ORDERED: methylPREDNISolone SOD SUCC 125 MG/2 ML VIAL IV ONE (18:32)
--- NOTE | 2022-05-26 19:48 | Emergency Department Note ---
Course Course Course Narrative: I assumed care of patient at 1900 pending hospitalist callback. Please refer to Dr. Webber's note for care up to this point. Case was discussed with hospitalist who has agreed to admit the patient for acute respiratory failure secondary to pneumonia and CHF exacerbation. Patient started on BiPAP due to hypercapnia Vital Signs Vital signs: Vital Signs Temperature 99.0 F 05/26/22 15:43 Pulse Rate 80 05/26/22 15:43 Respiratory Rate 22 05/26/22 15:43 Blood Pressure 153/104 05/26/22 15:43 Pulse Oximetry (%) 95 05/26/22 15:43 Oxygen Delivery Method 05/26/22 15:43 Oxygen Flow Rate (L/min) 4 05/26/22 15:43 Temperature 99.0 F 05/26/22 15:43 Pulse Rate 71 05/26/22 19:34 Respiratory Rate 21 05/26/22 19:34 Blood Pressure 155/125 05/26/22 19:34 Pulse Oximetry (%) 91 05/26/22 19:34 Oxygen Delivery Method 05/26/22 16:32 Oxygen Flow Rate (L/min) 4 05/26/22 16:32 MDM MDM Narrative Medical decision making narrative: Narrative: Differential Diagnosis Differential Diagnosis: CHF exacerbation, pneumonia Medical Records Medical records reviewed: Yes I reviewed the patient's medical records. Lab Data Lab results reviewed: Yes I reviewed the patient's lab results. Result diagrams: 05/26/22 16:31 Labs: Lab Results 05/26/22 05/26/22 05/26/22 Range/Units 16:13 16:15 16:31 WBC 5.0 (4.5-11.0) K/mcL RBC 4.56 (3.59-5.38) M/mcL Hgb 13.1 (11.2-15.7) g/dL Hct 44.0 (34.1-44.9) % POC Hct 42.0 (36-48) MCV 96.5 (80.0-100.0) fL MCH 28.7 (26.0-34.0) pg MCHC 29.8 L (31.0-36.0) g/dL RDW 14.6 H (11.5-14.5) % Plt Count 150 (140-440) K/mcL MPV 10.4 (8.8-12.5) fL Immature Gran % (Auto) 0.2 (0.0-0.5) % Neut % (Auto) 58.3 (38.0-78.0) % Lymph % (Auto) 29.7 (15.5-49.0) % Grand % (Auto) 7.2 (1.0-12.0) % Eos % (Auto) 4.2 (0.0-7.0) % Baso % (Auto) 0.4 (0.0-2.0) % Lymph # (Auto) 1.49 L (1.50-4.80) K/mcL Grand # (Auto) 0.36 (0.10-0.90) K/mcL Eos # (Auto) 0.21 (0.00-0.70) K/mcL Baso # (Auto) 0.02 (0.00-0.30) K/mcL Immature Gran # 0.01 (0.00-0.05) K/mcl Absolute Neutrophils 2.92 (1.80-8.00) K/mcL POC VBG pH 7.43 H (7.32-7.42) POC VBG pCO2 at Temp 70.3 H* (41-51) POC VBG pO2 97 H (25-40) POC VBG HCO3 46.3 H* (24-28) POC VBG Total CO2 48.0 H* (25-29) POC Venous O2 Sat 97.0 H (40-70) POC VBG Base Excess 22.0 H* (-2-2) VBG Lactic Acid 0.9 (0.5-2) POC Sodium 139 (133-145) POC Potassium 4.6 (3.3-5.1) POC Chloride 93 L (96-108) POC Total CO2 43.0 H* (22-30) POC BUN 17 (6-20) POC Creatinine 0.9 (0.6-1.2) POC Glucose 144 H (70-105) POC WB Ioniz Calcium 1.05 L (1.16-1.32) Magnesium (1.6-2.5) mg/dL NT-Pro-B Natriuret Pep (<125.0) pg/mL Procalcitonin (<0.10) ng/mL 05/26/22 05/26/22 Range/Units 16:31 16:31 WBC (4.5-11.0) K/mcL RBC (3.59-5.38) M/mcL Hgb (11.2-15.7) g/dL Hct (34.1-44.9) % POC Hct (36-48) MCV (80.0-100.0) fL MCH (26.0-34.0) pg MCHC (31.0-36.0) g/dL RDW (11.5-14.5) % Plt Count (140-440) K/mcL MPV (8.8-12.5) fL Immature Gran % (Auto) (0.0-0.5) % Neut % (Auto) (38.0-78.0) % Lymph % (Auto) (15.5-49.0) % Grand % (Auto) (1.0-12.0) % Eos % (Auto) (0.0-7.0) % Baso % (Auto) (0.0-2.0) % Lymph # (Auto) (1.50-4.80) K/mcL Grand # (Auto) (0.10-0.90) K/mcL Eos # (Auto) (0.00-0.70) K/mcL Baso # (Auto) (0.00-0.30) K/mcL Immature Gran # (0.00-0.05) K/mcl Absolute Neutrophils (1.80-8.00) K/mcL POC VBG pH (7.32-7.42) POC VBG pCO2 at Temp (41-51) POC VBG pO2 (25-40) POC VBG HCO3 (24-28) POC VBG Total CO2 (25-29) POC Venous O2 Sat (40-70) POC VBG Base Excess (-2-2) VBG Lactic Acid 0.7 (0.5-2) POC Sodium (133-145) POC Potassium (3.3-5.1) POC Chloride (96-108) POC Total CO2 (22-30) POC BUN (6-20) POC Creatinine (0.6-1.2) POC Glucose (70-105) POC WB Ioniz Calcium (1.16-1.32) Magnesium 2.4 (1.6-2.5) mg/dL NT-Pro-B Natriuret Pep 60533.0 H (<125.0) pg/mL Procalcitonin 0.05 (<0.10) ng/mL Radiology Data Radiology results reviewed: Yes I reviewed the patient's radiology results. Radiology results narrative: Chest x-ray obtained with image reviewed myself, agree with radiologist interpretation Core Measures AMI Core Measures Followed: Yes Discharge Plan Patient/Caregiver Discharge Instructions Pt seen by GARBAGE TRUCK DISPATCHER/PA only: No Clinical Impression: Acute respiratory failure with hypoxemia, Acute exacerbation of chronic obstructive pulmonary disease, Pneumonia, Hypercapnia Activity: increase activity as tolerated Patient Disposition: Xfer As Inpt ([facility]) Condition: Fair Follow up with: Roxana Oliveira ARNP [Primary Care Provider] - Prescriptions: No Action vitamin E 200 unit capsule 800 unit PO QDAY carvedilol 25 mg tablet 25 mg PO BID Label Comments: TAKE 1 TABLET BY MOUTH TWICE DAILY FOR 90 DAYS Farxiga 5 mg tablet 5 mg PO QAM potassium chloride 20 mEq tablet extended release 20 meq PO QAM Breztri Aerosphere 160-9-4.8 mcg/actuation HFA aerosol inhaler 0RF clonidine HCl 0.3 MG tablet 0.3 mg PO BID gabapentin 100 MG capsule 100 mg PO TID Qty: 90 0RF losartan 25 mg tablet 100 mg PO QAM lovastatin 40 mg tablet 80 mg PO DAILY Serevent Diskus 50 mcg/dose blister with device 1 inh INHALATION BID Label Comments: INHALE 1 PUFF BY MOUTH TWICE DAILY albuterol sulfate [Ventolin HFA] 90 mcg/actuation HFA aerosol inhaler 1 inh INHALATION QIDP PRN (Reason: Shortness Of Breath) Label Comments: INHALE 1 PUFF BY MOUTH 4 TIMES DAILY NEEDED furosemide 40 MG tablet 40 mg PO DAILY Qty: 30 0RF cefdinir 300 mg capsule 300 mg PO BID Qty: 20 0RF azithromycin 250 mg tablet 250 mg PO ONCE Qty: 4 0RF
--- NOTE | 2022-05-26 20:05 | Internal Med History&Physical ---
HPI History of Present Illness Patient information: Note initiated : 05/26/22 at 8:03 pm Service Date, if different from initiated Date: [] Patient: Cony Baig 71 y/o F admitted on for Sob. Chief Complaint: [] History of present illness: Ms. Baig is a 71-year-old female with a history of hypertension, type 2 diabetes mellitus, chronic diastolic heart failure, restrictive lung disease, chronic hypoxia and intermittent compliance with supplemental oxygen, obesity who was recently treated for pneumonia with cefdinir and azithromycin presented to the emergency department for shortness of breath. In the ED, the patient had a high-grade temperature of 99.0, her respiratory rate in the mid teens to upper 20s. The patient had a oxygen requirement of 4 L/min nasal cannula. She was hemodynamically stable with normal pulse rate. Patient had a normal WBC, normal platelet count, chemistry panel was notable for a severely elevated CO2 level of 43. Venous blood gas showed a pH of 7.43 and a PCO2 of 70.3, venous blood gas lactic acid was normal. Chest x-ray showed moderate bibasilar infiltrates suspicious for aspiration pneumonia. Patient was given ceftriaxone and IV azithromycin. Hospital medicine was consulted for admission. Review of systems Constitutional: no fever, fatigue, or weight loss Eyes: no vision changes or pain Cardiovascular: no chest pain, no palpitations Respiratory: no cough or dyspnea Gastrointestinal: no abdominal pain, no nausea, vomiting, or diarrhea Genitourinary: no dysuria or difficulty voiding Musculoskeletal: no arthralgia or myalgia Integumentary: no skin lesion or wound Neurological: no focal weakness or numbness Psychiatric: no anxiety or depression Physical exam Head: Atraumatic, normal inspection. Eyes: normal appearance, no scleral icterus. Neck: full ROM Respiratory: no respiratory distress. Cardiovascular: normal rate and rhythm, S1, S2. GI/Abdominal: soft, nontender, no guarding. Extremities: full range of motion, nontender. Neurological: CN II-XII intact, intact motor, intact sensation. Psychiatric: normal mood. Skin: warm, normal color PFSH PFSH All Active Problems (Updated 05/26/22 @ 20:05 by Sharath Vyas DO) Acute respiratory failure with hypoxemia (Acute) Acute exacerbation of chronic obstructive pulmonary disease (Acute) Pneumonia (Acute) Hypercapnia (Acute) Cardiomegaly (Chronic) Pneumonia (Acute) History of congestive heart failure (Acute) Diabetes mellitus type 2 in obese (Acute) Stasis edema with ulcer of both lower extremities (Acute) Cellulitis of both lower extremities (Acute) Stasis dermatitis of left lower extremity due to peripheral venous hypertension (Acute) Sepsis (Acute) Cellulitis (Acute) Cellulitis of left leg (Acute) Hypertensive urgency (Acute) Restrictive lung disease (Chronic) Acute bilateral thoracic back pain (Acute) Contusion of back wall of thorax (Acute) Infected wound (Acute) Elevated lactic acid level (Acute) Non-compliance (Acute) Edema of both lower extremities (Acute) Acute exacerbation of CHF (congestive heart failure) (Acute) Acute exacerbation of chronic obstructive pulmonary disease (Acute) Hypoxia (Chronic) Poor sleep hygiene (Chronic) Hypertension (Chronic) Nocturnal hypoxemia (Chronic) Pulmonary hypertension (Chronic) Dyspnea (Chronic) Bereavement (Chronic) Allergic rhinitis (Chronic) Foot pain (Chronic) Arthritis of hand (Chronic) Tenosynovitis of wrist (Chronic) Hypokalemia (Chronic) CKD (chronic kidney disease), stage III (Chronic) Obesity (Chronic) Urinary incontinence, mixed (Chronic) Open wound of lower limb (Chronic) Microalbuminuric diabetic nephropathy (Chronic) Peripheral venous insufficiency (Chronic) Ganglion of wrist (Chronic) Fecal occult blood test positive (Chronic) Hypertriglyceridemia (Chronic) CHF (congestive heart failure) (Chronic) Diastolic heart failure (Chronic) Morbid obesity (Chronic) Ulceration (Chronic) Pain in left leg (Chronic) Weakness (Chronic) Abnormal gait (Chronic) Calluse (Chronic) Urinary incontinence (Chronic) Intermittent claudication (Chronic) Edema, lower extremity (Chronic) Loss of taste (Chronic) Fatigue (Chronic) Anemia (Chronic) Osteoarthritis (Chronic) PVD (peripheral vascular disease) (Chronic) Hyperlipidemia (Chronic) DM II (diabetes mellitus, type II), controlled (Chronic) COPD (chronic obstructive pulmonary disease) (Chronic) Arthritis (Chronic) Allergic bronchitis (Chronic) SOB (shortness of breath) (Chronic) Cellulitis (Chronic) Edema extremities (Chronic) Diabetes (Chronic) Chronic hyperkalemia (Chronic) Venous stasis ulcer of both lower extremities without varicose veins (Chronic) Cellulitis and abscess of leg (Chronic) Diabetic ankle ulcer (Chronic) Asthma with exacerbation (Chronic) Dermatitis fungal (Chronic) CHF (congestive heart failure) (Chronic) Medical History Abnormal gait Allergic bronchitis Allergic rhinitis Anemia Arthritis Arthritis of hand Bereavement Calluse Cardiomegaly Cellulitis Patient already started on IV antibiotics Cellulitis and abscess of leg Excellent clinical improvement with chlorhexidene washes and topical skin moisturizer applications. CHF (congestive heart failure) Chronic hyperkalemia CKD (chronic kidney disease), stage III COPD (chronic obstructive pulmonary disease) Diabetes Diabetic ankle ulcer Diastolic heart failure DM II (diabetes mellitus, type II), controlled Dyspnea Edema extremities Will treat with spiral compression bandages and elevation of legs on pillows. Edema, lower extremity Fatigue Fecal occult blood test positive Foot pain Ganglion of wrist Hyperlipidemia Hypertriglyceridemia Hypokalemia Intermittent claudication Loss of taste Microalbuminuric diabetic nephropathy Morbid obesity Nocturnal hypoxemia Obesity Open wound of lower limb Osteoarthritis Knee Hip Pain in left leg Peripheral venous insufficiency Poor sleep hygiene PVD (peripheral vascular disease) Restrictive lung disease SOB (shortness of breath) Tenosynovitis of wrist Ulceration Bilateral Legs Urinary incontinence Urinary incontinence, mixed Venous stasis ulcer of both lower extremities without varicose veins Weakness Surgical History H/O skin graft left leg History of breast biopsy History of foot surgery History of hysterectomy History of rotator cuff surgery Family History Father Lung cancer Jaw cancer Diabetes Grandmother MS (myocardial infarction) Paternal HTN (hypertension) Paternal Family/Other Alzheimer's dementia Paternal Aunt Social History household members: other lives independently: Yes marital status: pets and animals: Yes pets and animals: dog(s) sexually active: No smoking status: Never smoker alcohol intake frequency: does not drink substance use type: does not use seatbelt use: always working smoke detector in home: Yes firearms in home: No MEDS/ALLERGIES Home Medications and Allergies Home Medications Medication Instructions Recorded Confirmed Type clonidine HCl 0.3 mg tablet 0.3 mg PO BID 04/28/16 05/09/22 History gabapentin 100 mg capsule 100 mg PO TID #90 caps 07/04/17 05/09/22 Rx losartan 25 mg tablet 100 mg PO QAM 07/25/19 05/09/22 History lovastatin 40 mg tablet 80 mg PO DAILY 07/25/19 05/09/22 History carvedilol 25 mg tablet 25 mg PO BID 12/26/19 05/09/22 History vitamin E 200 unit capsule 800 unit PO QDAY 12/26/19 05/09/22 History albuterol sulfate 90 mcg/actuation 1 inh inhalation QIDP PRN 09/02/20 05/09/22 History aerosol inhaler (Ventolin HFA) Shortness Of Breath salmeterol 50 mcg/dose blister 1 inh inhalation BID 09/02/20 05/09/22 History powder for inhalation (Serevent Diskus) furosemide 40 mg tablet 40 mg PO DAILY #30 tabs 09/04/20 05/09/22 Rx dapagliflozin 5 mg tablet (Farxiga) 5 mg PO QAM 09/22/20 05/09/22 History azithromycin 250 mg tablet 250 mg PO ONCE #4 tabs 05/02/22 05/09/22 Rx cefdinir 300 mg capsule 300 mg PO BID #20 caps 05/02/22 05/09/22 Rx potassium chloride 20 mEq 20 meq PO QAM 05/09/22 05/09/22 History tablet,extended release Allergies Allergy/AdvReac Type Severity Reaction Status Date / Time lidocaine AdvReac Intermediate Muscle Pain Verified 05/26/22 15:47 morphine AdvReac Intermediate Vomiting Verified 05/26/22 15:47 wool AdvReac Intermediate Rash Verified 05/26/22 15:47 acetaminophen [From [facility]] AdvReac Mild Vomiting Verified 05/26/22 15:47 adhesive tape AdvReac Mild Rash Verified 05/26/22 15:47 hydrocodone [From [facility]] AdvReac Mild Vomiting Verified 05/26/22 15:47 tramadol AdvReac Mild Vomiting Verified 05/26/22 15:47 EXAM Constitutional Vitals: Temp Pulse Resp BP Pulse Ox O2 Del Method O2 Flow Rate 99.0 F 71 21 155/125 91 4 05/26/22 15:43 05/26/22 19:34 05/26/22 19:34 05/26/22 19:34 05/26/22 19:34 05/26/22 16:32 05/26/22 16:32 DATA Data Completed and Pending Labs: Labs from last 24 hours 05/26/22 05/26/22 05/26/22 19:30 16:31 16:31 WBC RBC Hgb Hct POC Hct MCV MCH MCHC RDW Plt Count MPV Immature Gran % (Auto) Neut % (Auto) Lymph % (Auto) [place] % (Auto) Eos % (Auto) Baso % (Auto) Lymph # (Auto) [place] # (Auto) Eos # (Auto) Baso # (Auto) Immature Gran # Absolute Neutrophils POC VBG pH POC VBG pCO2 at Temp POC VBG pO2 POC VBG HCO3 POC VBG Total CO2 POC Venous O2 Sat POC VBG Base Excess VBG Lactic Acid 0.7 POC Sodium POC Potassium POC Chloride POC Total CO2 POC BUN POC Creatinine POC Glucose POC WB Ioniz Calcium Magnesium 2.4 NT-Pro-B Natriuret Pep 36350.0 H Procalcitonin 0.05 Urine Color Pending Urine Appearance Pending Urine pH Pending Ur Specific [place] Pending Urine Protein Pending Urine Glucose (UA) Pending Urine Ketones Pending Urine Occult Blood Pending Urine Nitrate Pending Urine Bilirubin Pending Urine Urobilinogen Pending Ur Leukocyte Esterase Pending 05/26/22 05/26/22 05/26/22 16:31 16:15 16:13 WBC 5.0 RBC 4.56 Hgb 13.1 Hct 44.0 POC Hct 42.0 MCV 96.5 MCH 28.7 MCHC 29.8 L RDW 14.6 H Plt Count 150 MPV 10.4 Immature Gran % (Auto) 0.2 Neut % (Auto) 58.3 Lymph % (Auto) 29.7 [place] % (Auto) 7.2 Eos % (Auto) 4.2 Baso % (Auto) 0.4 Lymph # (Auto) 1.49 L [place] # (Auto) 0.36 Eos # (Auto) 0.21 Baso # (Auto) 0.02 Immature Gran # 0.01 Absolute Neutrophils 2.92 POC VBG pH 7.43 H POC VBG pCO2 at Temp 70.3 H* POC VBG pO2 97 H POC VBG HCO3 46.3 H* POC VBG Total CO2 48.0 H* POC Venous O2 Sat 97.0 H POC VBG Base Excess 22.0 H* VBG Lactic Acid 0.9 POC Sodium 139 POC Potassium 4.6 POC Chloride 93 L POC Total CO2 43.0 H* POC BUN 17 POC Creatinine 0.9 POC Glucose 144 H POC WB Ioniz Calcium 1.05 L Magnesium NT-Pro-B Natriuret Pep Procalcitonin Urine Color Urine Appearance Urine pH Ur Specific [place] Urine Protein Urine Glucose (UA) Urine Ketones Urine Occult Blood Urine Nitrate Urine Bilirubin Urine Urobilinogen Ur Leukocyte Esterase A/P Narrative A/P Narrative: Assessment: 71-year-old female with a history of hypertension, type 2 diabetes mellitus, chronic diastolic heart failure, restrictive lung disease, chronic hypoxia and intermittent compliance with supplemental oxygen, obesity who was recently treated for pneumonia with cefdinir and azithromycin presented to the emergency department for shortness of breath and admitted for acute on chronic hypoxic and acute on chronic hypercapnic respiratory failure believed secondary to either congestive heart failure or bilateral lower lobe pneumonia or a combination of CHF and pneumonia. #Acute on chronic hypoxic respiratory failure #Acute on chronic hypercapnic respiratory failure #Possible acute on chronic diastolic heart failure #Possible bilateral lower lobe pneumonia #Concern for aspiration #Restrictive lung disease #Type 2 diabetes mellitus #Hypertension #Obesity with BMI 49 #Probable obesity hypoventilation syndrome #At risk for obstructive sleep apnea Plan -Vancomycin and levofloxacin IV for now. -Lasix 40 mg IV twice daily, monitor renal function, electrolytes, urine output and daily weights. -Oxygen supplementation, wean as able. -BiPAP if tolerated, repeat VBG. -MRSA nasal PCR. -Follow blood cultures. -Transthoracic echocardiogram. -Humalog SSIlow. -Home medication reconciliation, continue important meds. -PT and OT consult. -Speech therapy consult. -Consistent carbohydrate diet. -cafeteria monitor. -DVT prophylaxis: Lovenox Time Spent With Patient Time: Total time spent is greater than 50% in coordination of care (as documented) at patient's floor/unit and/or counseling patient:
[2022-05-26 20:24] LABS: Appearance,Urine CLEAR (Clear); Bilirubin,Urine NEGATIVE (Negative); Color,Urine LT. YELLOW; Glucose,Urine (UA) 500 mg/dL (Negative); Ketones,Urine NEGATIVE (Negative); Leukocyte Esterase,Urine NEGATIVE /uL (Negative); Nitrate,Urine NEGATIVE (Negative); Protein,Urine NEGATIVE (Negative); Urine Blood NEGATIVE ery/mcL (Negative); Urobilinogen,Urine Normal
[2022-05-26] MEDS ORDERED: LABETALOL 5 MG/ML ML IV PRN (21:50)
[2022-05-26] MEDS ORDERED: hydrALAZINE 20 MG/ML VIAL IV PRN (21:50)
[2022-05-26] MEDS ORDERED: VANCOMYCIN PER PHARMACY IV SCH (21:50)
[2022-05-26] MEDS ORDERED: SENNOSIDES 1 TABLET PO PRN (21:50)
[2022-05-26] MEDS ORDERED: LACTULOSE 20 GM/30 ML ORAL.SOL PO PRN (21:50)
[2022-05-26] MEDS ORDERED: DEXTROSE 50% 50 ML VIAL IV PRN (21:50)
[2022-05-26] MEDS ORDERED: DEXTROSE 31 GM ORAL.SUSP PO PRN (21:50)
[2022-05-26] MEDS ORDERED: ALBUTEROL SULFATE 2.5 MG/3 ML NEBULIZER NEB PRN (21:50)
[2022-05-26] MEDS: VANCOMYCIN 1,500 MG in 0.9 % SODIUM CHLORIDE 500 ML IV SCH (23:04)
[2022-05-26 23:14] LABS: ABG Methemoglobin 0.2 % (0.4-1.5); Total Hemoglobin 15.5 gm/Dl (12.0-15.0); VBG Base Excess 10 (-2-3); VBG HCO3 37.4 mmol/L (24.0-28.0); VBG Oxygen Saturation 89.1 % (40.0-70.0); VBG PCO2 64.4 mmHg (41.0-51.0); VBG PH 7.38 U (7.32-7.42); VBG PO2 70.5 mmHg (25.0-40.0); VBG Total CO2 39.4 mmol/L (25.0-29.0)
[2022-05-26] MEDS ORDERED: HYDROmorphone 0.5 MG/0.5 ML SYRINGE IV PRN (23:35)
[2022-05-26 23:36] LABS: ALT/SGPT 7 U/L (<40); AST/SGOT 9 U/L (<32); Albumin 3.8 gm/dL (3.2-5.2); Albumin/Globulin Ratio 1.2 (1.0-2.3); Alkaline Phosphatase 55 U/L (39-117); Bilirubin,Direct < 0.2 mg/dL (0-0.3); Bilirubin,Total 0.5 mg/dL (0.1-1.0); Blood Urea Nitrogen 12 mg/dL (8-23); Calcium 9.3 mg/dL (8.6-10.4); Carbon Dioxide 38 mmol/L (22-30); Chloride 91 mmol/L (96-108); Globulin 3.1 gm/dL (2.2-3.7); Glomerular Filtration Rate 75; Glucose 179 mg/dL (70-105); Lactate Dehydrogenase 176 U/L (135-225); Phosphorous 4.6 mg/dL (2.5-4.5); Triglycerides 137 mg/dL (<150); Uric Acid 5.4 mg/dL (2.5-8.0)
[2022-05-26] MEDS: cloNIDine HCL 0.1 MG TABLET PO SCH (23:43)
[2022-05-26] MEDS: INSULIN LISPRO 1 UNIT/0.01 ML UNIT SQ SCH (23:43)
[2022-05-26] MEDS: GABAPENTIN 100 MG CAPSULE PO SCH (23:43)
[2022-05-26] MEDS: DOCUSATE SODIUM 100 MG CAPSULE PO SCH (23:43)
[2022-05-26] MEDS: 0.9 % SODIUM CHLORIDE 10 ML SYRINGE IV SCH (23:44)
[2022-05-26] MEDS: IPRATROPIUM/ALBUTEROL 3 ML AMPUL.NEB NEB SCH (23:44)
[2022-05-26] MEDS ORDERED: CARVEDILOL 12.5 MG TABLET PO SCH (23:45)
[2022-05-26] MEDS: HYDROcodone/APAP 5/325MG TABLET PO PRN (23:46)
[2022-05-26] MEDS ORDERED: ACETAMINOPHEN 500 MG TABLET PO ONE (23:48)
[2022-05-26] MEDS ORDERED: cloNIDine HCL 0.1 MG TABLET ONE (23:49)
[2022-05-26] MEDS ORDERED: GABAPENTIN 100 MG CAPSULE PO ONE (23:49)
[2022-05-26] MEDS ORDERED: HYDROcodone/APAP 5/325MG TABLET PO ONE (23:56)
[2022-05-27] MEDS ORDERED: hydrALAZINE 20 MG/ML VIAL IV PRN (00:49)
[2022-05-27] MEDS ORDERED: LABETALOL 5 MG/ML ML IV PRN (00:51)
[2022-05-27] MEDS: LEVOFLOXACIN 750 MG/150 ML BAG IV SCH ×2 (01:29→16:21)
--- NOTE | 2022-05-27 02:20 | Cat Scan Report ---
CLINICAL INFORMATION: Dyspnea COMPARISON: Chest CT 05/17/2019 and 01/18/2022 TECHNIQUE: 0.625 mm axial slices were obtained from the lung apices through the bases without intravenous contrast. 2.5 mm Sagittal, coronal and axial reformatted images were processed and reviewed at bone, lung and soft tissue windows. 7 mm axial MIP images were also reconstructed to optimize pulmonary nodule detection.The exam was performed using radiation dose optimization techniques including, but not limited to, automated exposure control, adjustment of the mA and/or kV according to patient size and use of iterative reconstruction technique. FINDINGS: Pulmonary parenchymal windows show moderate consolidated infiltrate in the left lower lobe with a small left pleural effusion. Moderate/large right pleural effusion results in subtotal compressive atelectasis of the right lower lobe sparing only the anterior basilar segment and superior segments. There is severe enlargement of the central pulmonary arteries main pulmonary diameter 4.6 cm. The peripheral pulmonary vasculature is moderately congested with moderate interstitial edema and peribronchial vascular groundglass airspace disease compatible with superimposed CHF. Mediastinal windows show the heart is markedly enlarged with scattered calcific plaque in the coronary arteries. The noncontrast thoracic aorta is normal. Mildly enlarged lymph nodes in the mid lower mediastinum show slight increase in number. These are likely related to infection and CHF. The esophagus is grossly normal. Thyroid is unremarkable. Bone windows show no osseous lesion. There is moderate degenerative disc disease throughout the thoracic spine. At C5-6 moderate broad disc spur complex results in moderate central canal severe left and moderate right IV foraminal narrowing. Soft tissues the chest wall are normal. Images should the upper abdomen show probable splenomegaly and mild ascites is incompletely imaged. Moderate edema is seen in the subcutaneous fat over the left flank IMPRESSION: 1. Moderate CHF. 2. Moderate pneumonia left lower lobe and small left pleural effusion. 3. Moderate/large right pleural effusion resulting in compressive atelectasis of most of the right lower lobe. 4, Probable splenomegaly and mild ascites in the upper abdomen. Suggest abdominal ultrasound 5. C5-6: Moderate broad disc spur complex resulting in moderate central canal severe left and moderate right IV foraminal narrowing. There is exiting C6 nerve root impingement Interpreted and Authenticated by: Rhys Wong 05/27/22
[2022-05-27] MEDS: IPRATROPIUM/ALBUTEROL 3 ML AMPUL.NEB NEB SCH ×6 (02:25→22:40)
[2022-05-27] MEDS: 0.9 % SODIUM CHLORIDE 10 ML SYRINGE IV SCH ×3 (05:09→22:00)
[2022-05-27 07:01] LABS: Hematocrit 42.3 % (34.1-44.9); Hemoglobin 12.4 g/dL (11.2-15.7); Mean Cell Volume 96.4 fL (80.0-100.0); Mean Corpuscular HGB Conc 29.3 g/dL (31.0-36.0); Mean Platelet Volume 10.6 fL (8.8-12.5); Platelet Count 140 K/mcL (140-440); RBC 4.39 M/mcL (3.59-5.38); Red Cell Distribution Width 14.2 % (11.5-14.5); WBC 4.8 K/mcL (4.5-11.0)
[2022-05-27 07:22] LABS: ALT/SGPT 5 U/L (<40); AST/SGOT 7 U/L (<32); Albumin 3.5 gm/dL (3.2-5.2); Albumin/Globulin Ratio 1.5 (1.0-2.3); Alkaline Phosphatase 51 U/L (39-117); Bilirubin,Direct < 0.2 mg/dL (0-0.3); Bilirubin,Total 0.3 mg/dL (0.1-1.0); Blood Urea Nitrogen 14 mg/dL (8-23); Calcium 8.4 mg/dL (8.6-10.4); Carbon Dioxide 39 mmol/L (22-30); Chloride 93 mmol/L (96-108); Globulin 2.4 gm/dL (2.2-3.7); Glomerular Filtration Rate 88; Glucose 170 mg/dL (70-105); Lactate Dehydrogenase 206 U/L (135-225); Phosphorous 5.3 mg/dL (2.5-4.5); Triglycerides 111 mg/dL (<150); Uric Acid 5.4 mg/dL (2.5-8.0)
[2022-05-27] MEDS: MUPIROCIN OINT 2% 22GM NARES SCH ×2 (08:39→21:32)
[2022-05-27] MEDS: DOCUSATE SODIUM 100 MG CAPSULE PO SCH ×2 (08:40→21:33)
[2022-05-27] MEDS: FUROSEMIDE 40 MG/4 ML VIAL IV SCH ×2 (08:40→16:21)
[2022-05-27] MEDS: GABAPENTIN 100 MG CAPSULE PO SCH ×2 (08:40→21:33)
[2022-05-27] MEDS: ENOXAPARIN 40 MG/0.4 ML SYRINGE SQ SCH ×2 (08:40→09:01)
[2022-05-27 08:42] LABS: Band Neutrophils % 1 % (0-10); Hypochromasia 2+ (None Seen); Lymphocytes % 16 % (15-49); Monocytes % (Manual) 1 % (1-12); Platelet Estimate NORMAL (Normal); RBC Morphology ABNORMAL (Normal); Segmented Neutrophils % 82 % (38-78)
[2022-05-27] MEDS: ONDANSETRON 4 MG/2 ML VIAL IV PRN (08:55)
[2022-05-27] MEDS: CARVEDILOL 12.5 MG TABLET PO SCH ×2 (08:55→17:00)
[2022-05-27] MEDS: cloNIDine HCL 0.1 MG TABLET PO SCH ×2 (08:56→21:33)
[2022-05-27] MEDS: INSULIN LISPRO 1 UNIT/0.01 ML UNIT SQ SCH ×4 (08:56→21:33)
[2022-05-27] MEDS: VANCOMYCIN 1,500 MG in 0.9 % SODIUM CHLORIDE 500 ML IV SCH ×2 (10:48→22:24)
--- NOTE | 2022-05-27 10:55 | Ultrasound Report ---
CLINICAL INFORMATION: Right upper quadrant pain COMPARISON: None. FINDINGS: Liver is moderately enlarged with a vertical dimension of 21 cm. Echotexture is elevated compatible with fatty change. No focal hepatic lesions. There are 4-5 stones in the gallbladder ranging up to 8 mm. Gallbladder wall is normal thickness and there is no focal tenderness to suggest cholecystitis. Common bile duct is normal: 4 mm. Pancreas not visualized. No free fluid. IMPRESSION: Cholelithiasis. Gallbladder and bile ducts are, otherwise, normal. Moderate hepatomegaly with elevated echotexture patible with fatty change Interpreted and Authenticated by: Rhys Wong 05/27/22
--- NOTE | 2022-05-27 16:50 | Internal Med Progress Note ---
SUBJECTIVE Subjective Patient information: Note initiated : 05/27/22 at 4:41 pm Service Date, if different from initiated Date: [] Patient: Cony Baig 71 y/o F admitted on 05/26/22 for Sob. Chief Complaint: [] Interval history: Ms. Baig is a 71-year-old female with a history of hypertension, type 2 diabetes mellitus, chronic diastolic heart failure, restrictive lung disease, chronic hypoxia and intermittent compliance with supplemental oxygen, obesity who was recently treated for pneumonia with cefdinir and azithromycin presented to the emergency department for shortness of breath. In the ED, the patient had a high-grade temperature of 99.0, her respiratory rate in the mid teens to upper 20s. The patient had a oxygen requirement of 4 L/min nasal cannula. She was hemodynamically stable with normal pulse rate. Patient had a normal WBC, normal platelet count, chemistry panel was notable for a severely elevated CO2 level of 43. Venous blood gas showed a pH of 7.43 and a PCO2 of 70.3, venous blood gas lactic acid was normal. Chest x-ray showed moderate bibasilar infiltrates suspicious for aspiration pneumonia. Patient was given ceftriaxone and IV azithromycin. Hospital medicine was consulted for admission. 05/27 Oxygen supplementation weaned down to 3 L/min, the patient did not tolerate BiPAP overnight because it made her anxious. Repeat VBG PCO2 improved from 70.3 to 64.4. MRSA nasal PCR was positive. CT chest without contrast showed a moderate left lower lobe pneumonia and small left pleural effusion, moderate to large right pleural effusion resulting in compressive atelectasis of the right lower lobe, pulmonary vascular congestion findings consistent with heart failure. Transthoracic echocardiogram report notable for a moderate concentric left ventricular hypertrophy, LVEF of 50 to 55%, grade 2 diastolic dysfunction, mildly reduced right ventricular systolic function. Continuing vancomycin IV per pharmacy and levofloxacin for pneumonia. Minimal urine output documented, increase Lasix from 40 mg IV to 60 mg IV twice daily. Respiratory virus panel and SARS-CoV-2 PCR negative. Physical exam Head: Atraumatic, normal inspection. Eyes: normal appearance, no scleral icterus. Respiratory: no respiratory distress. Cardiovascular: normal rate and rhythm, S1, S2. GI/Abdominal: Obesely distended, soft, nontender, no guarding. Extremities: Bilateral lower extremity and sacral edema, full range of motion, tenderness to bilateral lower extremities Neurological: CN II-XII intact, intact motor, intact sensation. Psychiatric: normal mood. Skin: Bilateral lower extremity venous stasis, chronic wounds Constitutional Vitals: Vital Signs Temp Pulse Resp BP Pulse Ox O2 Del Method O2 Flow Rate 97.3 F 60 13 101/53 93 3 05/27/22 16:01 05/27/22 16:01 05/27/22 16:01 05/27/22 16:01 05/27/22 16:01 05/27/22 15:25 05/27/22 15:25 Period Temp Pulse Resp BP Sys/Najera Pulse Ox O2 Del Method O2 Flow Rate Last 24 Hr 97 F-97.7 F 53-78 13-37 101-222/53-133 91-97 Nasal Cannula- Nasal Cannula 3-6 Intake and Output 05/27/22 05/27/22 05/27/22 03:59 11:59 19:59 Intake Total 768 360 980 Output Total 500 1 800 Balance 268 359 180 Weight 133.81 kg 133.81 kg Patient Weight 05/28/22 03:59 Weight 133.81 kg Intake & Output: Intake & Output 05/27/22 05/27/22 05/27/22 03:59 11:59 19:59 Intake Total 768 360 980 Output Total 500 1 800 Balance 268 359 180 Weight 133.81 kg 133.81 kg Intake: IV 650 500 Vancomycin 1,500 mg In Sodium 500 500 Chloride 0.9% 500 ml @ 333.3 mls/hr IV Q12H [facility] Rx#: [id number] Oral 118 360 480 Output: Urine Catheter Amount 800 Void Amount 500 # of times incontinent of urine 1 0 Other: Meal Lunch Percent of Meal Consumed 75% Urine Appearance Clear Clear External Urinary Catheter Clear Urine Color Yellow Dark Yellow Bright Yellow External Urinary Catheter Dark Yellow Urine Odor Strong External Urinary Catheter Strong # Voids 1 # Bowel Movements 0 # of times incontinent of 0 Bowels OBJ DATA Labs CBC & Chem 7: 05/27/22 05:33 05/27/22 05:33 Labs: Abnormal Lab Results 05/27/22 05/27/22 05/26/22 05:33 05:33 22:51 MCHC 29.3 L RDW Lymph # (Auto) Seg Neutrophils % 82 H RBC Morphology Abnormal A Hypochromasia 2+ A ABG Methemoglobin 0.2 L POC VBG pH VBG pCO2 64.4 H* POC VBG pCO2 at Temp VBG pO2 70.5 H POC VBG pO2 VBG HCO3 37.4 H POC VBG HCO3 VBG Total CO2 39.4 H POC VBG Total CO2 VBG O2 Saturation 89.1 H POC Venous O2 Sat VBG Base Excess 10 H POC VBG Base Excess Carboxyhemoglobin 6.1 H Total Hemoglobin 15.5 H POC Chloride Chloride 93 L Carbon Dioxide 39 H POC Total CO2 Anion Gap 7.0 L Glucose 170 H POC Glucose Calcium 8.4 L POC WB Ioniz Calcium Phosphorus 5.3 H GGT 54 H NT-Pro-B Natriuret Pep Urine Glucose (UA) 05/26/22 05/26/22 05/26/22 22:50 19:30 16:31 MCHC RDW Lymph # (Auto) Seg Neutrophils % RBC Morphology Hypochromasia ABG Methemoglobin POC VBG pH VBG pCO2 POC VBG pCO2 at Temp VBG pO2 POC VBG pO2 VBG HCO3 POC VBG HCO3 VBG Total CO2 POC VBG Total CO2 VBG O2 Saturation POC Venous O2 Sat VBG Base Excess POC VBG Base Excess Carboxyhemoglobin Total Hemoglobin POC Chloride Chloride 91 L Carbon Dioxide 38 H POC Total CO2 Anion Gap Glucose 179 H POC Glucose Calcium POC WB Ioniz Calcium Phosphorus 4.6 H GGT NT-Pro-B Natriuret Pep 57458.0 H Urine Glucose (UA) 500 A 05/26/22 05/26/22 05/26/22 16:31 16:15 16:13 MCHC 29.8 L RDW 14.6 H Lymph # (Auto) 1.49 L Seg Neutrophils % RBC Morphology Hypochromasia ABG Methemoglobin POC VBG pH 7.43 H VBG pCO2 POC VBG pCO2 at Temp 70.3 H* VBG pO2 POC VBG pO2 97 H VBG HCO3 POC VBG HCO3 46.3 H* VBG Total CO2 POC VBG Total CO2 48.0 H* VBG O2 Saturation POC Venous O2 Sat 97.0 H VBG Base Excess POC VBG Base Excess 22.0 H* Carboxyhemoglobin Total Hemoglobin POC Chloride 93 L Chloride Carbon Dioxide POC Total CO2 43.0 H* Anion Gap Glucose POC Glucose 144 H Calcium POC WB Ioniz Calcium 1.05 L Phosphorus GGT NT-Pro-B Natriuret Pep Urine Glucose (UA) Meds: Medications Acetaminophen (Acetaminophen 325 Mg Tablet) 650 mg PO Q6HP PRN; Protocol PRN Reason: Per Pain Protocol/Fever > 101 Hydrocodone Bitart/Acetaminophen (Hydrocodone/Apap 5/325mg Tablet) 1 tab PO Q4HP PRN; Protocol PRN Reason: Per Pain Protocol Last Admin: 05/26/22 23:46 Dose: 1 tab Albuterol Sulfate (Albuterol Sulfate 2.5 Mg/3 Ml Nebulizer) 2.5 mg NEB Q2HP PRN PRN Reason: wheezing Albuterol/Ipratropium (Ipratropium/Albuterol 3 Ml Ampul.Neb) 3 ml NEB Q4HRT [facility] Last Admin: 05/27/22 15:20 Dose: 3 ml Carvedilol (Carvedilol 12.5 Mg Tablet) 25 mg PO BIDCC [facility] Last Admin: 05/27/22 08:55 Dose: 25 mg Clonidine HCl (Clonidine Hcl 0.1 Mg Tablet) 0.3 mg PO BID [facility] Last Admin: 05/27/22 08:56 Dose: 0.3 mg Dextrose (Dextrose 50% 50 Ml Vial) 0 ml IV UD PRN PRN Reason: Per Sliding Scale Diagnostic Test (Pha) (Accu-Chek 1 Each Strip) 1 each FS ACHS [facility] Last Admin: 05/27/22 11:26 Dose: Not Given Docusate Sodium (Docusate Sodium 100 Mg Capsule) 100 mg PO BID [facility] Last Admin: 05/27/22 08:40 Dose: 100 mg Enoxaparin Sodium (Enoxaparin 40 Mg/0.4 Ml Syringe) 40 mg SQ DAILY [facility] Last Admin: 05/27/22 09:01 Dose: Not Given Furosemide (Furosemide 40 Mg/4 Ml Vial) 40 mg IV BIDD [facility] Last Admin: 05/27/22 16:21 Dose: 40 mg Gabapentin (Gabapentin 100 Mg Capsule) 100 mg PO BID [facility] Last Admin: 05/27/22 08:40 Dose: 100 mg Glucose (Dextrose 31 Gm Oral.Susp) 15 gm PO PRN PRN PRN Reason: Hypoglycemia Hydralazine HCl (Hydralazine 20 Mg/Ml Vial) 20 mg IV Q4-6HP PRN PRN Reason: Hypertension Hydralazine HCl (Hydralazine 20 Mg/Ml Vial) 20 mg IV Q4-6HP PRN PRN Reason: Hypertension Hydromorphone HCl (Hydromorphone 0.5 Mg/0.5 Ml Syringe) 0.5 mg IV Q4HP PRN; Protocol PRN Reason: Per Pain Protocol Levofloxacin (Levaquin) 750 mg in 150 mls @ 100 mls/hr IV Q24H [facility] Last Admin: 05/27/22 16:21 Dose: 100 mls/hr Vancomycin HCl 1,500 mg/ (Sodium Chloride) 500 mls @ 333.3 mls/hr IV Q12H [facility] Last Infusion: 05/27/22 12:37 Dose: Infused Insulin Human Lispro (Insulin Lispro 1 Unit/0.01 Ml Unit) 0 unit SQ ACHS [facility]; Protocol Last Admin: 05/27/22 11:26 Dose: Not Given Labetalol HCl (Labetalol 5 Mg/Ml Ml) 10 mg IV Q10M PRN PRN Reason: Hypertension Labetalol HCl (Labetalol 5 Mg/Ml Ml) 10 mg IV Q10M PRN PRN Reason: Hypertension Lactulose (Lactulose 20 Gm/30 Ml Oral.Abbey) 10 gm PO DAILYP PRN PRN Reason: Constipation Mupirocin (Mupirocin Oint 2% 22gm) 1 dose NARES BID [facility] Last Admin: 05/27/22 08:39 Dose: 1 dose Ondansetron HCl (Ondansetron 4 Mg/2 Ml Vial) 4 mg IV Q4HP PRN; Protocol PRN Reason: Nausea And Vomiting Last Admin: 05/27/22 08:55 Dose: 4 mg Senna (Sennosides 1 Tablet) 2 tab PO HSP PRN PRN Reason: Constipation Sodium Chloride (0.9 % Sodium Chloride 10 Ml Syringe) 10 ml IV Q8 [facility] Last Admin: 05/27/22 12:37 Dose: 10 ml Vancomycin HCl (Vancomycin Per Pharmacy) 1 order IV UD [facility]; Protocol ABG Interpretation ABG results: 05/26/22 22:51 ABG Methemoglobin 0.2 L VBG pH 7.38 VBG pCO2 64.4 H* VBG pO2 70.5 H VBG HCO3 37.4 H VBG Total CO2 39.4 H VBG O2 Saturation 89.1 H VBG Base Excess 10 H A/P Narrative A/P Narrative: Assessment: 71-year-old female with a history of hypertension, type 2 diabetes mellitus, chronic diastolic heart failure, restrictive lung disease, chronic hypoxia and intermittent compliance with supplemental oxygen, obesity who was recently treated for pneumonia with cefdinir and azithromycin presented to the emergency department for shortness of breath and admitted for acute on chronic hypoxic and acute on chronic hypercapnic respiratory failure believed secondary to either congestive heart failure or bilateral lower lobe pneumonia or a combination of CHF and pneumonia. #Acute on chronic hypoxic respiratory failure #Acute on chronic hypercapnic respiratory failure #Acute on chronic diastolic heart failure #Left lower lobe community-acquired pneumonia #Moderate right pleural effusion and right lower lobe compressive atelectasis #Restrictive lung disease probably secondary to obesity #Type 2 diabetes mellitus #Hypertension #Obesity with BMI 49 #Probable obesity hypoventilation syndrome #At risk for obstructive sleep apnea Plan -Vancomycin and levofloxacin IV for now, positive MRSA PCR. -Increase Lasix from 40 to 60 mg IV twice daily, monitor renal function, electrolytes, urine output and daily weights. -Oxygen supplementation, wean as able. -Consider right diagnostic and therapeutic thoracentesis. -Follow blood cultures. -Humalog SSIlow. -Home medication reconciliation, continue important meds. -PT and OT consult. -Speech therapy consult. -Consistent carbohydrate diet. -speech correction consultant. -DVT prophylaxis: Lovenox -Disposition: TBD, cardiology referral at discharge for heart failure and TTE findings concerning for cardiac amyloid. Time Spent With Patient Time: Total time spent is greater than 50% in coordination of care (as documented) at patient's floor/unit and/or counseling patient:
[2022-05-27] MEDS ORDERED: FUROSEMIDE 20 MG/2 ML VIAL IV ONE (16:54)
[2022-05-27] MEDS: HYDROcodone/APAP 5/325MG TABLET PO PRN (22:32)
[2022-05-28] MEDS: IPRATROPIUM/ALBUTEROL 3 ML AMPUL.NEB NEB SCH ×6 (04:59→21:51)
[2022-05-28] MEDS: 0.9 % SODIUM CHLORIDE 10 ML SYRINGE IV SCH ×3 (05:00→20:51)
[2022-05-28 06:35] LABS: Hematocrit 43.1 % (34.1-44.9); Hemoglobin 12.1 g/dL (11.2-15.7); Mean Cell Volume 99.8 fL (80.0-100.0); Mean Corpuscular HGB Conc 28.1 g/dL (31.0-36.0); Mean Platelet Volume 10.5 fL (8.8-12.5); Platelet Count 143 K/mcL (140-440); RBC 4.32 M/mcL (3.59-5.38); Red Cell Distribution Width 14.4 % (11.5-14.5); WBC 5.3 K/mcL (4.5-11.0)
[2022-05-28 07:30] LABS: ALT/SGPT 7 U/L (<40); AST/SGOT 8 U/L (<32); Albumin 3.5 gm/dL (3.2-5.2); Albumin/Globulin Ratio 1.5 (1.0-2.3); Alkaline Phosphatase 47 U/L (39-117); Bilirubin,Direct < 0.2 mg/dL (0-0.3); Bilirubin,Total 0.2 mg/dL (0.1-1.0); Blood Urea Nitrogen 15 mg/dL (8-23); Calcium 8.6 mg/dL (8.6-10.4); Carbon Dioxide 43 mmol/L (22-30); Chloride 91 mmol/L (96-108); Globulin 2.3 gm/dL (2.2-3.7); Glomerular Filtration Rate 75; Glucose 112 mg/dL (70-105); Lactate Dehydrogenase 139 U/L (135-225); Phosphorous 4.8 mg/dL (2.5-4.5); Triglycerides 135 mg/dL (<150); Uric Acid 5.8 mg/dL (2.5-8.0)
[2022-05-28] MEDS ORDERED: FUROSEMIDE 40 MG/4 ML VIAL IV SCH (08:00)
[2022-05-28 08:29] LABS: Band Neutrophils % 1 % (0-10); Eosinophils % (Manual) 3 % (0-7); Lymphocytes % 15 % (15-49); Monocytes % (Manual) 7 % (1-12); Platelet Estimate NORMAL (Normal); RBC Morphology ABNORMAL (Normal); Reactive Lymphocytes 4 % (0-2); Segmented Neutrophils % 70 % (38-78); Stomatocytes 2+ (None Seen)
[2022-05-28] MEDS: INSULIN LISPRO 1 UNIT/0.01 ML UNIT SQ SCH ×4 (08:32→20:51)
[2022-05-28] MEDS: ENOXAPARIN 40 MG/0.4 ML SYRINGE SQ SCH ×2 (08:32→08:52)
[2022-05-28] MEDS: CARVEDILOL 12.5 MG TABLET PO SCH ×2 (08:33→19:15)
[2022-05-28] MEDS: cloNIDine HCL 0.1 MG TABLET PO SCH ×2 (08:34→21:11)
[2022-05-28] MEDS: MUPIROCIN OINT 2% 22GM NARES SCH ×2 (08:34→21:50)
[2022-05-28] MEDS: GABAPENTIN 100 MG CAPSULE PO SCH ×4 (08:34→21:11)
[2022-05-28] MEDS: DOCUSATE SODIUM 100 MG CAPSULE PO SCH ×2 (08:34→21:11)
[2022-05-28] MEDS ORDERED: acetaZOLAMIDE SOD 500 MG VIAL IV ONE (09:50)
[2022-05-28] MEDS: LINEZOLID 600 MG TABLET PO SCH ×2 (11:44→21:11)
[2022-05-28] MEDS: LEVOFLOXACIN 750 MG TABLET PO SCH (11:44)
[2022-05-28] MEDS: LEVOFLOXACIN 750 MG/150 ML BAG IV SCH (12:04)
--- NOTE | 2022-05-28 13:24 | Internal Med Progress Note ---
SUBJECTIVE Subjective Patient information: Note initiated : 05/28/22 at 1:20 pm Service Date, if different from initiated Date: [] Patient: Cony Baig 71 y/o F admitted on 05/26/22 for Sob. Chief Complaint: [] Interval history: Ms. Baig is a 71-year-old female with a history of hypertension, type 2 diabetes mellitus, chronic diastolic heart failure, restrictive lung disease, chronic hypoxia and intermittent compliance with supplemental oxygen, obesity who was recently treated for pneumonia with cefdinir and azithromycin presented to the emergency department for shortness of breath. In the ED, the patient had a high-grade temperature of 99.0, her respiratory rate in the mid teens to upper 20s. The patient had a oxygen requirement of 4 L/min nasal cannula. She was hemodynamically stable with normal pulse rate. Patient had a normal WBC, normal platelet count, chemistry panel was notable for a severely elevated CO2 level of 43. Venous blood gas showed a pH of 7.43 and a PCO2 of 70.3, venous blood gas lactic acid was normal. Chest x-ray showed moderate bibasilar infiltrates suspicious for aspiration pneumonia. Patient was given ceftriaxone and IV azithromycin. Hospital medicine was consulted for admission. 05/27 Oxygen supplementation weaned down to 3 L/min, the patient did not tolerate BiPAP overnight because it made her anxious. Repeat VBG PCO2 improved from 70.3 to 64.4. MRSA nasal PCR was positive. CT chest without contrast showed a moderate left lower lobe pneumonia and small left pleural effusion, moderate to large right pleural effusion resulting in compressive atelectasis of the right lower lobe, pulmonary vascular congestion findings consistent with heart failure. Transthoracic echocardiogram report notable for a moderate concentric left ventricular hypertrophy, LVEF of 50 to 55%, grade 2 diastolic dysfunction, mildly reduced right ventricular systolic function. Continuing vancomycin IV per pharmacy and levofloxacin for pneumonia. Minimal urine output documented, increase Lasix from 40 mg IV to 60 mg IV twice daily. Respiratory virus panel and SARS-CoV-2 PCR negative. 05/28 Vitals stable overnight, bicarb level increasing. Acetazolamide 500 mg IV given once. Continues on Lasix IV. Started linezolid and p.o. levofloxacin for pneumonia, discontinued IV vancomycin and IV levofloxacin. Physical exam Head: Atraumatic, normal inspection. Eyes: normal appearance, no scleral icterus. Respiratory: no respiratory distress. Cardiovascular: normal rate and rhythm, S1, S2. GI/Abdominal: Obesely distended, soft, nontender, no guarding. Extremities: Bilateral lower extremity and sacral edema, full range of motion, tenderness to bilateral lower extremities Neurological: CN II-XII intact, intact motor, intact sensation. Psychiatric: normal mood. Skin: Bilateral lower extremity venous stasis, chronic wounds Constitutional Vitals: Vital Signs Temp Pulse Resp BP Pulse Ox O2 Del Method O2 Flow Rate 98.8 F 72 24 H 115/66 92 3 05/28/22 12:00 05/28/22 12:00 05/28/22 12:00 05/28/22 12:00 05/28/22 12:00 05/28/22 12:00 05/28/22 12:00 Period Temp Pulse Resp BP Sys/Najera Pulse Ox O2 Del Method O2 Flow Rate Last 24 Hr 97.3 F-98.8 F 56-76 13-33 97-135/49-89 86-99 Nasal Cannula- Room Air 0-5 Intake and Output 05/28/22 05/28/22 05/28/22 03:59 11:59 19:59 Intake Total 920 Output Total 120 650 Balance 800 -650 Weight 124.058 kg Intake & Output: Intake & Output 05/28/22 05/28/22 05/28/22 03:59 11:59 19:59 Intake Total 920 Output Total 120 650 Balance 800 -650 Weight 124.058 kg Intake: IV 500 Vancomycin 1,500 mg In Sodium 500 Chloride 0.9% 500 ml @ 333.3 mls/hr IV Q12H [facility] Rx#: [id number] Oral 420 Output: Urine Catheter Amount 175 Void Amount 120 475 Other: Meal Dinner Breakfast Percent of Meal Consumed 75% 75% Feeding Ability Independent Urine Appearance Clear Clear External Urinary Catheter Clear Urine Color Yellow Dark Yellow Pale External Urinary Catheter Yellow Pale Urine Odor Strong # Bowel Movements 0 OBJ DATA Labs CBC & Chem 7: 05/28/22 05:10 05/28/22 05:10 Labs: Abnormal Lab Results 05/28/22 05/28/22 05/27/22 05:10 05:10 05:33 MCHC 28.1 L RDW Lymph # (Auto) Seg Neutrophils % Reactive Lymphocytes 4 H RBC Morphology Abnormal A Hypochromasia Stomatocytes 2+ A ABG Methemoglobin POC VBG pH VBG pCO2 POC VBG pCO2 at Temp VBG pO2 POC VBG pO2 VBG HCO3 POC VBG HCO3 VBG Total CO2 POC VBG Total CO2 VBG O2 Saturation POC Venous O2 Sat VBG Base Excess POC VBG Base Excess Carboxyhemoglobin Total Hemoglobin POC Chloride Chloride 91 L 93 L Carbon Dioxide 43 H* 39 H POC Total CO2 Anion Gap 5.0 L 7.0 L Glucose 112 H 170 H POC Glucose Calcium 8.4 L POC WB Ioniz Calcium Phosphorus 4.8 H 5.3 H GGT 54 H NT-Pro-B Natriuret Pep Total Protein 5.8 L Urine Glucose (UA) 05/27/22 05/26/22 05/26/22 05:33 22:51 22:50 MCHC 29.3 L RDW Lymph # (Auto) Seg Neutrophils % 82 H Reactive Lymphocytes RBC Morphology Abnormal A Hypochromasia 2+ A Stomatocytes ABG Methemoglobin 0.2 L POC VBG pH VBG pCO2 64.4 H* POC VBG pCO2 at Temp VBG pO2 70.5 H POC VBG pO2 VBG HCO3 37.4 H POC VBG HCO3 VBG Total CO2 39.4 H POC VBG Total CO2 VBG O2 Saturation 89.1 H POC Venous O2 Sat VBG Base Excess 10 H POC VBG Base Excess Carboxyhemoglobin 6.1 H Total Hemoglobin 15.5 H POC Chloride Chloride 91 L Carbon Dioxide 38 H POC Total CO2 Anion Gap Glucose 179 H POC Glucose Calcium POC WB Ioniz Calcium Phosphorus 4.6 H GGT NT-Pro-B Natriuret Pep Total Protein Urine Glucose (UA) 05/26/22 05/26/22 05/26/22 19:30 16:31 16:31 MCHC 29.8 L RDW 14.6 H Lymph # (Auto) 1.49 L Seg Neutrophils % Reactive Lymphocytes RBC Morphology Hypochromasia Stomatocytes ABG Methemoglobin POC VBG pH VBG pCO2 POC VBG pCO2 at Temp VBG pO2 POC VBG pO2 VBG HCO3 POC VBG HCO3 VBG Total CO2 POC VBG Total CO2 VBG O2 Saturation POC Venous O2 Sat VBG Base Excess POC VBG Base Excess Carboxyhemoglobin Total Hemoglobin POC Chloride Chloride Carbon Dioxide POC Total CO2 Anion Gap Glucose POC Glucose Calcium POC WB Ioniz Calcium Phosphorus GGT NT-Pro-B Natriuret Pep 80890.0 H Total Protein Urine Glucose (UA) 500 A 05/26/22 05/26/22 16:15 16:13 MCHC RDW Lymph # (Auto) Seg Neutrophils % Reactive Lymphocytes RBC Morphology Hypochromasia Stomatocytes ABG Methemoglobin POC VBG pH 7.43 H VBG pCO2 POC VBG pCO2 at Temp 70.3 H* VBG pO2 POC VBG pO2 97 H VBG HCO3 POC VBG HCO3 46.3 H* VBG Total CO2 POC VBG Total CO2 48.0 H* VBG O2 Saturation POC Venous O2 Sat 97.0 H VBG Base Excess POC VBG Base Excess 22.0 H* Carboxyhemoglobin Total Hemoglobin POC Chloride 93 L Chloride Carbon Dioxide POC Total CO2 43.0 H* Anion Gap Glucose POC Glucose 144 H Calcium POC WB Ioniz Calcium 1.05 L Phosphorus GGT NT-Pro-B Natriuret Pep Total Protein Urine Glucose (UA) Meds: Medications Acetaminophen (Acetaminophen 325 Mg Tablet) 650 mg PO Q6HP PRN; Protocol PRN Reason: Per Pain Protocol/Fever > 101 Hydrocodone Bitart/Acetaminophen (Hydrocodone/Apap 5/325mg Tablet) 1 tab PO Q4HP PRN; Protocol PRN Reason: Per Pain Protocol Last Admin: 05/27/22 22:32 Dose: 1 tab Albuterol Sulfate (Albuterol Sulfate 2.5 Mg/3 Ml Nebulizer) 2.5 mg NEB Q2HP PRN PRN Reason: wheezing Albuterol/Ipratropium (Ipratropium/Albuterol 3 Ml Ampul.Neb) 3 ml NEB Q4HRT [facility] Last Admin: 05/28/22 11:04 Dose: Not Given [facility]il[facility] ([facility] 12.5 Mg [facility]) [facility] Admin: 05/28/22 08:33 Dose: 25 mg Clonidine HCl (Clonidine Hcl 0.1 Mg Tablet) 0.3 mg PO BID [facility] Last Admin: 05/28/22 08:34 Dose: 0.3 mg Dextrose (Dextrose 50% 50 Ml Vial) 0 ml IV UD PRN PRN Reason: Per Sliding Scale Diagnostic Test (Pha) (Accu-Chek 1 Each Strip) 1 each FS ACHS [facility] Last Admin: 05/28/22 12:03 Dose: 1 each Docusate Sodium (Docusate Sodium 100 Mg Capsule) 100 mg PO BID [facility] Last Admin: 05/28/22 08:34 Dose: 100 mg Enoxaparin Sodium (Enoxaparin 40 Mg/0.4 Ml Syringe) 40 mg SQ DAILY [facility] Last Admin: 05/28/22 08:52 Dose: Not Given Furosemide (Furosemide 40 Mg/4 Ml Vial) 60 mg IV BIDD [facility] Last Admin: 05/28/22 08:33 Dose: 60 mg Gabapentin (Gabapentin 100 Mg Capsule) 100 mg PO BID [facility] Last Admin: 05/28/22 08:34 Dose: 100 mg Glucose (Dextrose 31 Gm Oral.Susp) 15 gm PO PRN PRN PRN Reason: Hypoglycemia Hydralazine HCl (Hydralazine 20 Mg/Ml Vial) 20 mg IV Q4-6HP PRN PRN Reason: Hypertension Hydromorphone HCl (Hydromorphone 0.5 Mg/0.5 Ml Syringe) 0.5 mg IV Q4HP PRN; Protocol PRN Reason: Per Pain Protocol Insulin Human Lispro (Insulin Lispro 1 Unit/0.01 Ml Unit) 0 unit SQ ACHS [facility]; Protocol Last Admin: 05/28/22 12:03 Dose: Not Given Labetalol HCl (Labetalol 5 Mg/Ml Ml) 10 mg IV Q10M PRN PRN Reason: Hypertension Lactulose (Lactulose 20 Gm/30 Ml Oral.Abbey) 10 gm PO DAILYP PRN PRN Reason: Constipation Levofloxacin (Levofloxacin 750 Mg Tablet) 750 mg PO DAILY [facility]; Protocol Last Admin: 05/28/22 11:44 Dose: 750 mg Linezolid (Linezolid 600 Mg Tablet) 600 mg PO Q12 [facility]; Protocol Last Admin: 05/28/22 11:44 Dose: 600 mg Mupirocin (Mupirocin Oint 2% 22gm) 1 dose NARES BID [facility] Last Admin: 05/28/22 08:34 Dose: 1 dose Ondansetron HCl (Ondansetron 4 Mg/2 Ml Vial) 4 mg IV Q4HP PRN; Protocol PRN Reason: Nausea And Vomiting Last Admin: 05/27/22 08:55 Dose: 4 mg Senna (Sennosides 1 Tablet) 2 tab PO HSP PRN PRN Reason: Constipation Sodium Chloride (0.9 % Sodium Chloride 10 Ml Syringe) 10 ml IV Q8 [facility] Last Admin: 05/28/22 05:00 Dose: 10 ml ABG Interpretation ABG results: 05/26/22 22:51 ABG Methemoglobin 0.2 L VBG pH 7.38 VBG pCO2 64.4 H* VBG pO2 70.5 H VBG HCO3 37.4 H VBG Total CO2 39.4 H VBG O2 Saturation 89.1 H VBG Base Excess 10 H A/P Narrative A/P Narrative: Assessment: 71-year-old female with a history of hypertension, type 2 diabetes mellitus, chronic diastolic heart failure, restrictive lung disease, chronic hypoxia and intermittent compliance with supplemental oxygen, obesity who was recently treated for pneumonia with cefdinir and azithromycin presented to the emergency department for shortness of breath and admitted for acute on chronic hypoxic and acute on chronic hypercapnic respiratory failure believed secondary to either congestive heart failure or bilateral lower lobe pneumonia or a combination of CHF and pneumonia. #Acute on chronic hypoxic respiratory failure #Acute on chronic hypercapnic respiratory failure #Acute on chronic diastolic heart failure #Left lower lobe community-acquired pneumonia #Moderate right pleural effusion and right lower lobe compressive atelectasis #Restrictive lung disease probably secondary to obesity #Type 2 diabetes mellitus #Hypertension #Obesity with BMI 49 #Probable obesity hypoventilation syndrome #At risk for obstructive sleep apnea Plan -PO Linezolid and Levofloxacin, discontinue IV vancomycin and levofloxacin. -Continue Lasix 60 mg IV twice daily, monitor renal function, electrolytes, urine output and daily weights. -Acetazolamide 500 mg IV once today. -Oxygen supplementation, wean as able. -Consider right diagnostic and therapeutic thoracentesis. -Follow blood cultures. -Humalog SSIlow. -Continue home Coreg, clonidine, gabapentin, lovastatin, Serevent discus. -PT and OT consult. -Speech therapy consult. -Consistent carbohydrate diet. -clinical research monitor. -DVT prophylaxis: Lovenox -Disposition: TBD, likely more frequent Lasix dosing at discharge. Cardiology referral at discharge for heart failure and TTE findings concerning for cardiac amyloid. Time Spent With Patient Time: Total time spent is greater than 50% in coordination of care (as documented) at patient's floor/unit and/or counseling patient:
[2022-05-28] MEDS: HYDROcodone/APAP 5/325MG TABLET PO PRN ×2 (14:42→21:12)
[2022-05-28] MEDS: METOLAZONE 2.5 MG TABLET PO ONE ×2 (15:53→19:02)
[2022-05-28] MEDS: FUROSEMIDE 40 MG TABLET PO SCH ×2 (16:25→19:15)
[2022-05-28 17:32] LABS: Pro:Crea Ratio 0.08 (<0.20)
[2022-05-28] MEDS: ONDANSETRON 4 MG ODT TABLET SL PRN ×2 (18:32→23:38)
[2022-05-28] MEDS ORDERED: ONDANSETRON 4 MG ODT TABLET ONE (18:44)
[2022-05-28] MEDS: PROMETHAZINE 25 MG TABLET PO PRN (20:41)
[2022-05-28] MEDS ORDERED: PROMETHAZINE 25 MG TABLET PO ONE (20:50)
[2022-05-28] MEDS ORDERED: SALMETEROL XINAFOATE 1 PUFF INHALER INH SCH (21:00)
[2022-05-29] MEDS: IPRATROPIUM/ALBUTEROL 3 ML AMPUL.NEB NEB SCH ×7 (02:26→22:50)
[2022-05-29] MEDS: 0.9 % SODIUM CHLORIDE 10 ML SYRINGE IV SCH ×3 (05:32→22:50)
[2022-05-29 06:40] LABS: Hematocrit 44.8 % (34.1-44.9); Hemoglobin 12.7 g/dL (11.2-15.7); Mean Cell Volume 100.2 fL (80.0-100.0); Mean Corpuscular HGB Conc 28.3 g/dL (31.0-36.0); Mean Platelet Volume 10.5 fL (8.8-12.5); Platelet Count 136 K/mcL (140-440); RBC 4.47 M/mcL (3.59-5.38); Red Cell Distribution Width 14.4 % (11.5-14.5)
[2022-05-29 07:12] LABS: ALT/SGPT 7 U/L (<40); AST/SGOT 7 U/L (<32); Albumin 3.6 gm/dL (3.2-5.2); Albumin/Globulin Ratio 1.4 (1.0-2.3); Alkaline Phosphatase 49 U/L (39-117); Bilirubin,Direct < 0.2 mg/dL (0-0.3); Bilirubin,Total 0.3 mg/dL (0.1-1.0); Blood Urea Nitrogen 14 mg/dL (8-23); Carbon Dioxide 48 mmol/L (22-30); Chloride 87 mmol/L (96-108); Globulin 2.6 gm/dL (2.2-3.7); Glomerular Filtration Rate 65; Glucose 150 mg/dL (70-105); Lactate Dehydrogenase 133 U/L (135-225); Phosphorous 4.2 mg/dL (2.5-4.5); Triglycerides 169 mg/dL (<150); Uric Acid 6.6 mg/dL (2.5-8.0)
[2022-05-29] MEDS: INSULIN LISPRO 1 UNIT/0.01 ML UNIT SQ SCH ×4 (08:39→21:32)
[2022-05-29] MEDS ORDERED: LEVOFLOXACIN 750 MG TABLET PO SCH (09:00)
[2022-05-29 09:35] LABS: Band Neutrophils % 2 % (0-10); Eosinophils % (Manual) 2 % (0-7); Lymphocytes % 18 % (15-49); Monocytes % (Manual) 7 % (1-12); Platelet Estimate DECREASED (Normal); RBC Morphology ABNORMAL (Normal); Reactive Lymphocytes 6 % (0-2); Segmented Neutrophils % 65 % (38-78); Stomatocytes 2+ (None Seen)
[2022-05-29 09:50] LABS: ABG Methemoglobin 0.3 % (0.4-1.5); VBG Base Excess 16 (-2-3); VBG HCO3 47.2 mmol/L (24.0-28.0); VBG Oxygen Saturation 90.9 % (40.0-70.0); VBG PO2 81.2 mmHg (25.0-40.0); VBG Total CO2 50.3 mmol/L (25.0-29.0)
[2022-05-29] MEDS: CARVEDILOL 12.5 MG TABLET PO SCH ×2 (10:35→17:52)
[2022-05-29] MEDS: cloNIDine HCL 0.1 MG TABLET PO SCH ×2 (10:35→20:20)
[2022-05-29] MEDS: FUROSEMIDE 40 MG TABLET PO SCH (10:36)
[2022-05-29] MEDS: LEVOFLOXACIN 750 MG TABLET PO SCH (10:36)
[2022-05-29] MEDS: DOCUSATE SODIUM 100 MG CAPSULE PO SCH ×2 (10:36→20:19)
[2022-05-29] MEDS: GABAPENTIN 100 MG CAPSULE PO SCH (10:36)
[2022-05-29] MEDS: MUPIROCIN OINT 2% 22GM NARES SCH ×2 (10:37→20:19)
[2022-05-29] MEDS: ATORVASTATIN 10 MG TABLET PO SCH (10:44)
[2022-05-29] MEDS: ENOXAPARIN 40 MG/0.4 ML SYRINGE SQ SCH (10:44)
[2022-05-29] MEDS: LINEZOLID 600 MG TABLET PO SCH (10:44)
[2022-05-29 14:01] LABS: ABG Methemoglobin 0.2 % (0.4-1.5); Total Hemoglobin 13.7 gm/Dl (12.0-15.0); VBG Base Excess 15 (-2-3); VBG HCO3 47.1 mmol/L (24.0-28.0); VBG Oxygen Saturation 91.5 % (40.0-70.0); VBG PCO2 102.1 mmHg (41.0-51.0); VBG PH 7.28 U (7.32-7.42); VBG PO2 79.3 mmHg (25.0-40.0); VBG Total CO2 50.3 mmol/L (25.0-29.0)
--- NOTE | 2022-05-29 14:04 | Internal Med Progress Note ---
SUBJECTIVE Subjective Patient information: Note initiated : 05/29/22 at 2:01 pm Service Date, if different from initiated Date: [] Patient: Cony Baig 71 y/o F admitted on 05/26/22 for Sob. Chief Complaint: [] Interval history: Ms. Baig is a 71-year-old female with a history of hypertension, type 2 diabetes mellitus, chronic diastolic heart failure, restrictive lung disease, chronic hypoxia and intermittent compliance with supplemental oxygen, obesity who was recently treated for pneumonia with cefdinir and azithromycin presented to the emergency department for shortness of breath. In the ED, the patient had a high-grade temperature of 99.0, her respiratory rate in the mid teens to upper 20s. The patient had a oxygen requirement of 4 L/min nasal cannula. She was hemodynamically stable with normal pulse rate. Patient had a normal WBC, normal platelet count, chemistry panel was notable for a severely elevated CO2 level of 43. Venous blood gas showed a pH of 7.43 and a PCO2 of 70.3, venous blood gas lactic acid was normal. Chest x-ray showed moderate bibasilar infiltrates suspicious for aspiration pneumonia. Patient was given ceftriaxone and IV azithromycin. Hospital medicine was consulted for admission. 05/27 Oxygen supplementation weaned down to 3 L/min, the patient did not tolerate BiPAP overnight because it made her anxious. Repeat VBG PCO2 improved from 70.3 to 64.4. MRSA nasal PCR was positive. CT chest without contrast showed a moderate left lower lobe pneumonia and small left pleural effusion, moderate to large right pleural effusion resulting in compressive atelectasis of the right lower lobe, pulmonary vascular congestion findings consistent with heart failure. Transthoracic echocardiogram report notable for a moderate concentric left ventricular hypertrophy, LVEF of 50 to 55%, grade 2 diastolic dysfunction, mildly reduced right ventricular systolic function. Continuing vancomycin IV per pharmacy and levofloxacin for pneumonia. Minimal urine output documented, increase Lasix from 40 mg IV to 60 mg IV twice daily. Respiratory virus panel and SARS-CoV-2 PCR negative. 05/28 Vitals stable overnight, bicarb level increasing. Acetazolamide 500 mg IV given once. Continues on Lasix IV however the patient's IV infiltrated, the patient did not allow for another IV to be placed so transition to oral Lasix. 1 dose of metolazone 5 mg with evening Lasix dose. Started linezolid and p.o. levofloxacin for pneumonia, discontinued IV vancomycin and IV levofloxacin. 05/29 Patient was very drowsy this morning, VBG showed a PCO2 of 98, venous pH of 7.3. Patient does not tolerate BiPAP, her mental status slowly improved after she woke up. Suspect the patient has severe underlying sleep apnea. We will repeat VBG in a couple hours. CPAP ordered for bedtime, unclear if the patient will tolerate CPAP. Physical exam Head: Atraumatic, normal inspection. Eyes: normal appearance, no scleral icterus. Respiratory: no respiratory distress. Cardiovascular: nasal canula oxygen, normal rate and rhythm, S1, S2. GI/Abdominal: Obesely distended, soft, nontender, no guarding. Extremities: Bilateral lower extremity and sacral edema, full range of motion, tenderness to bilateral lower extremities Neurological: CN II-XII intact, intact motor, intact sensation. Psychiatric: Drowsy today. Skin: Bilateral lower extremity venous stasis, chronic wounds Constitutional Vitals: Vital Signs Temp Pulse Resp BP Pulse Ox O2 Del Method O2 Flow Rate 98.5 F 71 17 111/62 90 3 05/29/22 12:00 05/29/22 11:25 05/29/22 12:00 05/29/22 12:00 05/29/22 12:00 05/29/22 12:00 05/29/22 12:00 Period Temp Pulse Resp BP Sys/Najera Pulse Ox O2 Del Method O2 Flow Rate Last 24 Hr 97 F-98.5 F 63-74 16-25 104-144/56-79 88-95 Nasal Cannula- Nasal Cannula 3-3.5 Intake and Output 05/29/22 05/29/22 05/29/22 03:59 11:59 19:59 Intake Total 818 Output Total 800 1600 Balance 18 -1600 Weight 124.313 kg Intake & Output: Intake & Output 05/29/22 05/29/22 05/29/22 03:59 11:59 19:59 Intake Total 818 Output Total 800 1600 Balance 18 -1600 Weight 124.313 kg Intake: Oral 818 Output: Void Amount 800 1600 Other: Meal Dinner Percent of Meal Consumed 25% Urine Appearance Clear Clear External Urinary Catheter Clear Urine Color Yellow Yellow Pale External Urinary Catheter Yellow OBJ DATA Labs CBC & Chem 7: 05/29/22 05:13 05/29/22 05:14 Labs: Abnormal Lab Results 05/29/22 05/29/22 05/29/22 13:37 09:26 05:14 MCV MCHC RDW Plt Count Lymph # (Auto) Seg Neutrophils % Reactive Lymphocytes Platelet Estimate RBC Morphology Hypochromasia Stomatocytes ABG Methemoglobin 0.2 L 0.3 L VBG pH 7.28 L 7.30 L POC VBG pH VBG pCO2 102.1 H* 98.0 H* POC VBG pCO2 at Temp VBG pO2 79.3 H 81.2 H POC VBG pO2 VBG HCO3 47.1 H* 47.2 H* POC VBG HCO3 VBG Total CO2 50.3 H* 50.3 H* POC VBG Total CO2 VBG O2 Saturation 91.5 H 90.9 H POC Venous O2 Sat VBG Base Excess 15 H 16 H POC VBG Base Excess Carboxyhemoglobin 4.3 H 5.5 H Total Hemoglobin POC Chloride Chloride 87 L Carbon Dioxide 48 H* POC Total CO2 Anion Gap 1.0 L Glucose 150 H POC Glucose Calcium POC WB Ioniz Calcium Phosphorus GGT Lactate Dehydrogenase 133 L NT-Pro-B Natriuret Pep Total Protein Triglycerides 169 H Urine Glucose (UA) 05/29/22 05/28/22 05/28/22 05:13 05:10 05:10 MCV 100.2 H MCHC 28.3 L 28.1 L RDW Plt Count 136 L Lymph # (Auto) Seg Neutrophils % Reactive Lymphocytes 6 H 4 H Platelet Estimate Decreased A RBC Morphology Abnormal A Abnormal A Hypochromasia Stomatocytes 2+ A 2+ A ABG Methemoglobin VBG pH POC VBG pH VBG pCO2 POC VBG pCO2 at Temp VBG pO2 POC VBG pO2 VBG HCO3 POC VBG HCO3 VBG Total CO2 POC VBG Total CO2 VBG O2 Saturation POC Venous O2 Sat VBG Base Excess POC VBG Base Excess Carboxyhemoglobin Total Hemoglobin POC Chloride Chloride 91 L Carbon Dioxide 43 H* POC Total CO2 Anion Gap 5.0 L Glucose 112 H POC Glucose Calcium POC WB Ioniz Calcium Phosphorus 4.8 H GGT Lactate Dehydrogenase NT-Pro-B Natriuret Pep Total Protein 5.8 L Triglycerides Urine Glucose (UA) 05/27/22 05/27/22 05/26/22 05:33 05:33 22:51 MCV MCHC 29.3 L RDW Plt Count Lymph # (Auto) Seg Neutrophils % 82 H Reactive Lymphocytes Platelet Estimate RBC Morphology Abnormal A Hypochromasia 2+ A Stomatocytes ABG Methemoglobin 0.2 L VBG pH POC VBG pH VBG pCO2 64.4 H* POC VBG pCO2 at Temp VBG pO2 70.5 H POC VBG pO2 VBG HCO3 37.4 H POC VBG HCO3 VBG Total CO2 39.4 H POC VBG Total CO2 VBG O2 Saturation 89.1 H POC Venous O2 Sat VBG Base Excess 10 H POC VBG Base Excess Carboxyhemoglobin 6.1 H Total Hemoglobin 15.5 H POC Chloride Chloride 93 L Carbon Dioxide 39 H POC Total CO2 Anion Gap 7.0 L Glucose 170 H POC Glucose Calcium 8.4 L POC WB Ioniz Calcium Phosphorus 5.3 H GGT 54 H Lactate Dehydrogenase NT-Pro-B Natriuret Pep Total Protein Triglycerides Urine Glucose (UA) 05/26/22 05/26/22 05/26/22 22:50 19:30 16:31 MCV MCHC RDW Plt Count Lymph # (Auto) Seg Neutrophils % Reactive Lymphocytes Platelet Estimate RBC Morphology Hypochromasia Stomatocytes ABG Methemoglobin VBG pH POC VBG pH VBG pCO2 POC VBG pCO2 at Temp VBG pO2 POC VBG pO2 VBG HCO3 POC VBG HCO3 VBG Total CO2 POC VBG Total CO2 VBG O2 Saturation POC Venous O2 Sat VBG Base Excess POC VBG Base Excess Carboxyhemoglobin Total Hemoglobin POC Chloride Chloride 91 L Carbon Dioxide 38 H POC Total CO2 Anion Gap Glucose 179 H POC Glucose Calcium POC WB Ioniz Calcium Phosphorus 4.6 H GGT Lactate Dehydrogenase NT-Pro-B Natriuret Pep 42055.0 H Total Protein Triglycerides Urine Glucose (UA) 500 A 05/26/22 05/26/22 05/26/22 16:31 16:15 16:13 MCV MCHC 29.8 L RDW 14.6 H Plt Count Lymph # (Auto) 1.49 L Seg Neutrophils % Reactive Lymphocytes Platelet Estimate RBC Morphology Hypochromasia Stomatocytes ABG Methemoglobin VBG pH POC VBG pH 7.43 H VBG pCO2 POC VBG pCO2 at Temp 70.3 H* VBG pO2 POC VBG pO2 97 H VBG HCO3 POC VBG HCO3 46.3 H* VBG Total CO2 POC VBG Total CO2 48.0 H* VBG O2 Saturation POC Venous O2 Sat 97.0 H VBG Base Excess POC VBG Base Excess 22.0 H* Carboxyhemoglobin Total Hemoglobin POC Chloride 93 L Chloride Carbon Dioxide POC Total CO2 43.0 H* Anion Gap Glucose POC Glucose 144 H Calcium POC WB Ioniz Calcium 1.05 L Phosphorus GGT Lactate Dehydrogenase NT-Pro-B Natriuret Pep Total Protein Triglycerides Urine Glucose (UA) Meds: Medications Acetaminophen (Acetaminophen 325 Mg Tablet) 650 mg PO Q6HP PRN; Protocol PRN Reason: Per Pain Protocol/Fever > 101 Hydrocodone Bitart/Acetaminophen (Hydrocodone/Apap 5/325mg Tablet) 1 tab PO Q4HP PRN; Protocol PRN Reason: Per Pain Protocol Last Admin: 05/28/22 21:12 Dose: 1 tab Albuterol Sulfate (Albuterol Sulfate 2.5 Mg/3 Ml Nebulizer) 2.5 mg NEB Q2HP PRN PRN Reason: wheezing Albuterol/Ipratropium (Ipratropium/Albuterol 3 Ml Ampul.Neb) 3 ml NEB Q4HRT [facility] Last Admin: 05/29/22 11:23 Dose: 3 ml Atorvastatin Calcium (Atorvastatin 10 Mg Tablet) 10 mg PO DAILY [facility] Last Admin: 05/29/22 10:44 Dose: 10 mg Carvedilol (Carvedilol 12.5 Mg Tablet) 25 mg PO BIDCC [facility] Last Admin: 05/29/22 10:35 Dose: 25 mg Clonidine HCl (Clonidine Hcl 0.1 Mg Tablet) 0.3 mg PO BID [facility] Last Admin: 05/29/22 10:35 Dose: 0.3 mg Dextrose (Dextrose 50% 50 Ml Vial) 0 ml IV UD PRN PRN Reason: Per Sliding Scale Diagnostic Test (Pha) (Accu-Chek 1 Each Strip) 1 each FS ACHS [facility] Last Admin: 05/29/22 07:37 Dose: 1 each Docusate Sodium (Docusate Sodium 100 Mg Capsule) 100 mg PO BID [facility] Last Admin: 05/29/22 10:36 Dose: 100 mg Enoxaparin Sodium (Enoxaparin 40 Mg/0.4 Ml Syringe) 40 mg SQ DAILY [facility] Last Admin: 05/29/22 10:44 Dose: Not Given Furosemide (Furosemide 40 Mg Tablet) 40 mg PO BIDD [facility] Last Admin: 05/29/22 10:36 Dose: 40 mg Gabapentin (Gabapentin 100 Mg Capsule) 100 mg PO TID [facility] Last Admin: 05/29/22 10:36 Dose: 100 mg Glucose (Dextrose 31 Gm Oral.Susp) 15 gm PO PRN PRN PRN Reason: Hypoglycemia Hydralazine HCl (Hydralazine 20 Mg/Ml Vial) 20 mg IV Q4-6HP PRN PRN Reason: Hypertension Insulin Human Lispro (Insulin Lispro 1 Unit/0.01 Ml Unit) 0 unit SQ ACHS [facility]; Protocol Last Admin: 05/29/22 08:39 Dose: Not Given Labetalol HCl (Labetalol 5 Mg/Ml Ml) 10 mg IV Q10M PRN PRN Reason: Hypertension Lactulose (Lactulose 20 Gm/30 Ml Oral.Abbey) 10 gm PO DAILYP PRN PRN Reason: Constipation Levofloxacin (Levofloxacin 750 Mg Tablet) 750 mg PO DAILY [facility]; Protocol Last Admin: 05/29/22 10:36 Dose: 750 mg Linezolid (Linezolid 600 Mg Tablet) 600 mg PO Q12 [facility]; Protocol Last Admin: 05/29/22 10:44 Dose: 600 mg Mupirocin (Mupirocin Oint 2% 22gm) 1 dose NARES BID [facility] Last Admin: 05/29/22 10:37 Dose: 1 dose Ondansetron HCl (Ondansetron 4 Mg/2 Ml Vial) 4 mg IV Q4HP PRN; Protocol PRN Reason: Nausea And Vomiting Last Admin: 05/27/22 08:55 Dose: 4 mg Ondansetron HCl (Ondansetron 4 Mg Odt Tablet) 4 mg SL Q4HP PRN PRN Reason: Nausea And Vomiting Last Admin: 05/28/22 23:38 Dose: 4 mg Promethazine HCl (Promethazine 25 Mg Tablet) 25 mg PO Q6HP PRN PRN Reason: Nausea And Vomiting Last Admin: 05/28/22 20:41 Dose: 25 mg Senna (Sennosides 1 Tablet) 2 tab PO HSP PRN PRN Reason: Constipation Sodium Chloride (0.9 % Sodium Chloride 10 Ml Syringe) 10 ml IV Q8 [facility] Last Admin: 05/29/22 05:32 Dose: Not Given ABG Interpretation ABG results: 05/26/22 05/29/22 05/29/22 22:51 09:26 13:37 ABG Methemoglobin 0.2 L 0.3 L 0.2 L VBG pH 7.38 7.30 L 7.28 L VBG pCO2 64.4 H* 98.0 H* 102.1 H* VBG pO2 70.5 H 81.2 H 79.3 H VBG HCO3 37.4 H 47.2 H* 47.1 H* VBG Total CO2 39.4 H 50.3 H* 50.3 H* VBG O2 Saturation 89.1 H 90.9 H 91.5 H VBG Base Excess 10 H 16 H 15 H A/P Narrative A/P Narrative: Assessment: 71-year-old female with a history of hypertension, type 2 diabetes mellitus, chronic diastolic heart failure, restrictive lung disease, chronic hypoxia and intermittent compliance with supplemental oxygen, obesity who was recently treated for pneumonia with cefdinir and azithromycin presented to the emergency department for shortness of breath and admitted for acute on chronic hypoxic and acute on chronic hypercapnic respiratory failure believed secondary to either congestive heart failure or bilateral lower lobe pneumonia or a combination of CHF and pneumonia. #Acute on chronic hypercapnic respiratory failure #Acute on chronic hypoxic respiratory failure #Acute on chronic diastolic heart failure #Left lower lobe community-acquired pneumonia #Moderate right pleural effusion and right lower lobe compressive atelectasis #Restrictive lung disease probably secondary to obesity #Type 2 diabetes mellitus #Hypertension #Obesity with BMI 49 #Probable obesity hypoventilation syndrome #At risk for obstructive sleep apnea Plan -BiPAP for increasing PCO2, repeat VBG. -Chest xray. -If respiratory acidosis does not improve with NIV then will probably have to intubate the patient for mechanical ventilation. -Scheduled duo nebs and as needed albuterol nebs. -Oral Linezolid and Levofloxacin for pneumonia. -Hold Lasix due to increasing bicarb level. -Oxygen supplementation, wean as able. -Consider right diagnostic and therapeutic thoracentesis. -Follow blood cultures. -Humalog SSIlow. -Continue home Coreg, clonidine, gabapentin, lovastatin. -PT and OT consult. -Speech therapy consult. -Consistent carbohydrate diet. -playground monitor. -DVT prophylaxis: Lovenox -Disposition: TBD, likely more frequent Lasix dosing at discharge. Cardiology referral at discharge for heart failure and TTE findings concerning for cardiac amyloid. Time Spent With Patient Time: Total time spent is greater than 50% in coordination of care (as documented) at patient's floor/unit and/or counseling patient:
--- NOTE | 2022-05-29 14:51 | XRay Report ---
CLINICAL INFORMATION: Dyspnea COMPARISON: 05/26/2022 TECHNIQUE: Portable FINDINGS: Moderate cardiomegaly show slight increase. Mediastinum is normal. Bilateral infiltrates have worsened: there is now moderate consolidation in both mid and lower lungs with moderate bilateral pleural effusions. Mild distention of pulmonary vessels in the upper lobes noted. IMPRESSION: Moderate consolidated infiltrates in both mid and lower lungs worsening considerably from yesterday. Consider aspiration. Mild underlying CHF slight improvement Interpreted and Authenticated by: Rhys Wong 05/29/22
[2022-05-29 15:28] LABS: ABG Methemoglobin 0.3 % (0.4-1.5); Total Hemoglobin 13.5 gm/Dl (12.0-15.0); VBG Base Excess 17 (-2-3); VBG HCO3 48.6 mmol/L (24.0-28.0); VBG Oxygen Saturation 86.6 % (40.0-70.0); VBG PCO2 101.9 mmHg (41.0-51.0); VBG PO2 58.1 mmHg (25.0-40.0); VBG Total CO2 51.7 mmol/L (25.0-29.0)
[2022-05-29] MEDS ORDERED: VANCOMYCIN PER PHARMACY IV SCH (16:32)
[2022-05-29 17:44] LABS: ABG Methemoglobin 0.3 % (0.4-1.5); Total Hemoglobin 13.6 gm/Dl (12.0-15.0); VBG Base Excess 26 (-2-3); VBG HCO3 58.7 mmol/L (24.0-28.0); VBG PCO2 117.4 mmHg (41.0-51.0); VBG PH 7.32 U (7.32-7.42); VBG PO2 39.7 mmHg (25.0-40.0); VBG Total CO2 62.3 mmol/L (25.0-29.0)
[2022-05-29] MEDS: PIPERACILLIN SODIUM/TAZOBACTAM 4.5 GM in DEXTROSE 5% IN WATER 50 ML IV SCH (18:05)
[2022-05-29] MEDS: VANCOMYCIN 1,500 MG in 0.9 % SODIUM CHLORIDE 500 ML IV SCH (18:42)
[2022-05-29] MEDS: ACETAMINOPHEN 325 MG TABLET PO PRN (20:20)
[2022-05-30] MEDS: IPRATROPIUM/ALBUTEROL 3 ML AMPUL.NEB NEB SCH ×8 (04:17→23:01)
[2022-05-30] MEDS: 0.9 % SODIUM CHLORIDE 10 ML SYRINGE IV SCH ×3 (05:50→20:14)
[2022-05-30] MEDS: PIPERACILLIN SODIUM/TAZOBACTAM 4.5 GM in DEXTROSE 5% IN WATER 50 ML IV SCH ×4 (06:11→17:27)
[2022-05-30 06:25] LABS: Hematocrit 42.7 % (34.1-44.9); Hemoglobin 12.6 g/dL (11.2-15.7); Mean Cell Volume 95.7 fL (80.0-100.0); Mean Corpuscular HGB Conc 29.5 g/dL (31.0-36.0); Mean Platelet Volume 10.6 fL (8.8-12.5); Platelet Count 139 K/mcL (140-440); RBC 4.46 M/mcL (3.59-5.38); Red Cell Distribution Width 14.3 % (11.5-14.5); WBC 6.5 K/mcL (4.5-11.0)
[2022-05-30 06:49] LABS: ALT/SGPT 7 U/L (<40); AST/SGOT 7 U/L (<32); Albumin 3.4 gm/dL (3.2-5.2); Albumin/Globulin Ratio 1.5 (1.0-2.3); Alkaline Phosphatase 47 U/L (39-117); Bilirubin,Direct < 0.2 mg/dL (0-0.3); Bilirubin,Total 0.5 mg/dL (0.1-1.0); Blood Urea Nitrogen 13 mg/dL (8-23); Calcium 8.8 mg/dL (8.6-10.4); Carbon Dioxide 49 mmol/L (22-30); Chloride 80 mmol/L (96-108); Globulin 2.3 gm/dL (2.2-3.7); Glomerular Filtration Rate 65; Glucose 155 mg/dL (70-105); Lactate Dehydrogenase 140 U/L (135-225); Phosphorous 2.1 mg/dL (2.5-4.5); Triglycerides 162 mg/dL (<150); Uric Acid 5.8 mg/dL (2.5-8.0)
[2022-05-30 06:54] LABS: Band Neutrophils % 1 % (0-10); Eosinophils % (Manual) 2 % (0-7); Lymphocytes % 34 % (15-49); Monocytes % (Manual) 10 % (1-12); Platelet Estimate DECREASED (Normal); RBC Morphology NORMAL (Normal); Segmented Neutrophils % 53 % (38-78)
[2022-05-30] MEDS ORDERED: METOPROLOL TARTRATE 5 MG/5 ML VIAL IV PRN (07:08)
[2022-05-30] MEDS: INSULIN LISPRO 1 UNIT/0.01 ML UNIT SQ SCH ×4 (07:45→20:24)
[2022-05-30] MEDS: ATORVASTATIN 10 MG TABLET PO SCH (08:08)
[2022-05-30] MEDS: DOCUSATE SODIUM 100 MG CAPSULE PO SCH ×2 (08:08→20:13)
[2022-05-30] MEDS: ENOXAPARIN 40 MG/0.4 ML SYRINGE SQ SCH (08:08)
[2022-05-30] MEDS: cloNIDine HCL 0.1 MG TABLET PO SCH ×2 (08:09→20:13)
--- NOTE | 2022-05-30 08:16 | Internal Med Progress Note ---
SUBJECTIVE Subjective Patient information: Note initiated : 05/30/22 at 8:15 am Service Date, if different from initiated Date: [] Patient: Cony Baig 71 y/o F admitted on 05/26/22 for Sob. Chief Complaint: [] Interval history: Ms. Baig is a 71-year-old female with a history of hypertension, type 2 diabetes mellitus, chronic diastolic heart failure, restrictive lung disease, chronic hypoxia and intermittent compliance with supplemental oxygen, obesity who was recently treated for pneumonia with cefdinir and azithromycin presented to the emergency department for shortness of breath. In the ED, the patient had a high-grade temperature of 99.0, her respiratory rate in the mid teens to upper 20s. The patient had a oxygen requirement of 4 L/min nasal cannula. She was hemodynamically stable with normal pulse rate. Patient had a normal WBC, normal platelet count, chemistry panel was notable for a severely elevated CO2 level of 43. Venous blood gas showed a pH of 7.43 and a PCO2 of 70.3, venous blood gas lactic acid was normal. Chest x-ray showed moderate bibasilar infiltrates suspicious for aspiration pneumonia. Patient was given ceftriaxone and IV azithromycin. Hospital medicine was consulted for admission. 05/27 Oxygen supplementation weaned down to 3 L/min, the patient did not tolerate BiPAP overnight because it made her anxious. Repeat VBG PCO2 improved from 70.3 to 64.4. MRSA nasal PCR was positive. CT chest without contrast showed a moderate left lower lobe pneumonia and small left pleural effusion, moderate to large right pleural effusion resulting in compressive atelectasis of the right lower lobe, pulmonary vascular congestion findings consistent with heart failure. Transthoracic echocardiogram report notable for a moderate concentric left ventricular hypertrophy, LVEF of 50 to 55%, grade 2 diastolic dysfunction, mildly reduced right ventricular systolic function. Continuing vancomycin IV per pharmacy and levofloxacin for pneumonia. Minimal urine output documented, increase Lasix from 40 mg IV to 60 mg IV twice daily. Respiratory virus panel and SARS-CoV-2 PCR negative. 05/28 Vitals stable overnight, bicarb level increasing. Acetazolamide 500 mg IV given once. Continues on Lasix IV however the patient's IV infiltrated, the patient did not allow for another IV to be placed so transition to oral Lasix. 1 dose of metolazone 5 mg with evening Lasix dose. Started linezolid and p.o. levofloxacin for pneumonia, discontinued IV vancomycin and IV levofloxacin. 05/29 Patient was very drowsy this morning, VBG showed a PCO2 of 98, venous pH of 7.3. Patient does not tolerate BiPAP, her mental status slowly improved after she woke up. Suspect the patient has severe underlying sleep apnea. We will repeat VBG in a couple hours. CPAP ordered for bedtime, unclear if the patient will tolerate CPAP. 05/30 Patient tolerated BiPAP most of the night, repeat ABG this morning showed an improvement in PCO2, pH normal. Potassium low, replaced. Repeat chest x-ray yesterday evening showed an interval worsening with moderate consolidated infiltrates in both mid and lower lungs. Transition antibiotics to IV vancomycin and Zosyn. We will hold off on diuretics today given the elevation in serum bicarbonate and risk of loop diuretics causing contraction alkalosis. Continue BiPAP today. Physical exam Head: Atraumatic, normal inspection. Eyes: normal appearance, no scleral icterus. Respiratory: BiPAP and supplemental oxygen. Cardiology: normal rate and rhythm, S1, S2. GI/Abdominal: Obesely distended, soft, nontender, no guarding. Extremities: Bilateral lower extremity, full range of motion, tenderness to bilateral lower extremities Neurological: CN II-XII intact, intact motor, intact sensation. Psychiatric: Improved cognition today. Skin: Bilateral lower extremity venous stasis, chronic wounds Constitutional Vitals: Vital Signs Temp Pulse Resp BP Pulse Ox O2 Del Method O2 Flow Rate 97.4 F 71 14 138/110 94 3 05/30/22 08:00 05/30/22 08:03 05/30/22 08:03 05/30/22 08:00 05/30/22 08:03 05/30/22 05:00 05/30/22 00:00 Period Temp Pulse Resp BP Sys/Najera Pulse Ox O2 Del Method O2 Flow Rate Last 24 Hr 97.1 F-98.5 F 36-88 14-28 102-139/53-110 5-96 BiPAP-Nasal Cannula 3-3 Intake and Output 05/29/22 05/30/22 05/30/22 19:59 03:59 11:59 Intake Total 290 1704 686 Output Total 1650 950 300 Balance -1360 754 386 Weight 124.313 kg Intake & Output: Intake & Output 05/29/22 05/30/22 05/30/22 19:59 03:59 11:59 Intake Total 290 1704 686 Output Total 1650 950 300 Balance -1360 754 386 Weight 124.313 kg Intake: IV 50 550 50 Zosyn 4.5 gm In Dextrose 5% in 50 50 50 Water 50 ml @ 100 mls/hr IV Q6H [facility] Rx#:[id number] Vancomycin 1,500 mg In Sodium 500 Chloride 0.9% 500 ml @ 333.3 mls/hr IV Q12H [facility] Rx#: [id number] Oral 240 [id number] Output: Void Amount 1650 950 300 Other: Meal Lunch Snack Percent of Meal Consumed 25% 100% Feeding Ability Assist with Tray Set Up Urine Appearance Clear Clear Clear External Urinary Catheter Clear Urine Color Yellow Yellow Yellow External Urinary Catheter Yellow # Bowel Movements 0 OBJ DATA Labs CBC & Chem 7: 05/30/22 05:10 05/30/22 05:10 Labs: Abnormal Lab Results 05/30/22 05/30/22 05/30/22 06:51 05:10 05:10 MCV MCHC 29.5 L Plt Count 139 L Seg Neutrophils % Reactive Lymphocytes Platelet Estimate Decreased A RBC Morphology Hypochromasia Stomatocytes POC pCO2 94.5 H* POC pO2 57 L POC HCO3 60.9 H POC Total CO2 > 50.0 H* POC ABG Base Excess > 30.0 H ABG Methemoglobin ABG Lactic Acid VBG pH VBG pCO2 VBG pO2 VBG HCO3 VBG Total CO2 VBG O2 Saturation VBG Base Excess Hgb O2 Saturation 87.0 L Carboxyhemoglobin Potassium 3.0 L Chloride 80 L Carbon Dioxide 49 H* Anion Gap 7.0 L Glucose 155 H Phosphorus 2.1 L Lactate Dehydrogenase Total Protein 5.7 L Triglycerides 162 H 05/29/22 05/29/22 05/29/22 19:16 17:22 15:07 MCV MCHC Plt Count Seg Neutrophils % Reactive Lymphocytes Platelet Estimate RBC Morphology Hypochromasia Stomatocytes POC pCO2 107.4 H* POC pO2 79 L POC HCO3 59.3 H POC Total CO2 > 50.0 H* POC ABG Base Excess > 30.0 H ABG Methemoglobin 0.3 L 0.3 L ABG Lactic Acid < 0.3 L VBG pH 7.30 L VBG pCO2 117.4 H* 101.9 H* VBG pO2 58.1 H VBG HCO3 58.7 H* 48.6 H* VBG Total CO2 62.3 H* 51.7 H* VBG O2 Saturation 74.0 H 86.6 H VBG Base Excess 26 H 17 H Hgb O2 Saturation 93.0 L Carboxyhemoglobin 4.1 H 4.4 H Potassium Chloride Carbon Dioxide Anion Gap Glucose Phosphorus Lactate Dehydrogenase Total Protein Triglycerides 05/29/22 05/29/22 05/29/22 13:37 09:26 05:14 MCV MCHC Plt Count Seg Neutrophils % Reactive Lymphocytes Platelet Estimate RBC Morphology Hypochromasia Stomatocytes POC pCO2 POC pO2 POC HCO3 POC Total CO2 POC ABG Base Excess ABG Methemoglobin 0.2 L 0.3 L ABG Lactic Acid VBG pH 7.28 L 7.30 L VBG pCO2 102.1 H* 98.0 H* VBG pO2 79.3 H 81.2 H VBG HCO3 47.1 H* 47.2 H* VBG Total CO2 50.3 H* 50.3 H* VBG O2 Saturation 91.5 H 90.9 H VBG Base Excess 15 H 16 H Hgb O2 Saturation Carboxyhemoglobin 4.3 H 5.5 H Potassium Chloride 87 L Carbon Dioxide 48 H* Anion Gap 1.0 L Glucose 150 H Phosphorus Lactate Dehydrogenase 133 L Total Protein Triglycerides 169 H 05/29/22 05/28/22 05/28/22 05:13 05:10 05:10 MCV 100.2 H MCHC 28.3 L 28.1 L Plt Count 136 L Seg Neutrophils % Reactive Lymphocytes 6 H 4 H Platelet Estimate Decreased A RBC Morphology Abnormal A Abnormal A Hypochromasia Stomatocytes 2+ A 2+ A POC pCO2 POC pO2 POC HCO3 POC Total CO2 POC ABG Base Excess ABG Methemoglobin ABG Lactic Acid VBG pH VBG pCO2 VBG pO2 VBG HCO3 VBG Total CO2 VBG O2 Saturation VBG Base Excess Hgb O2 Saturation Carboxyhemoglobin Potassium Chloride 91 L Carbon Dioxide 43 H* Anion Gap 5.0 L Glucose 112 H Phosphorus 4.8 H Lactate Dehydrogenase Total Protein 5.8 L Triglycerides 05/27/22 05:33 MCV MCHC Plt Count Seg Neutrophils % 82 H Reactive Lymphocytes Platelet Estimate RBC Morphology Abnormal A Hypochromasia 2+ A Stomatocytes POC pCO2 POC pO2 POC HCO3 POC Total CO2 POC ABG Base Excess ABG Methemoglobin ABG Lactic Acid VBG pH VBG pCO2 VBG pO2 VBG HCO3 VBG Total CO2 VBG O2 Saturation VBG Base Excess Hgb O2 Saturation Carboxyhemoglobin Potassium Chloride Carbon Dioxide Anion Gap Glucose Phosphorus Lactate Dehydrogenase Total Protein Triglycerides Meds: Medications Acetaminophen (Acetaminophen 325 Mg Tablet) 650 mg PO Q6HP PRN; Protocol PRN Reason: Per Pain Protocol/Fever > 101 Last Admin: 05/29/22 20:20 Dose: 650 mg Albuterol Sulfate (Albuterol Sulfate 2.5 Mg/3 Ml Nebulizer) 2.5 mg NEB Q2HP PRN PRN Reason: wheezing Albuterol/Ipratropium (Ipratropium/Albuterol 3 Ml Ampul.Neb) 3 ml NEB Q4HRT [facility] Last Admin: 05/30/22 06:12 Dose: Not Given Atorvastatin Calcium (Atorvastatin 10 Mg Tablet) 10 mg PO DAILY [facility] Last Admin: 05/30/22 08:08 Dose: 10 mg Clonidine HCl (Clonidine Hcl 0.1 Mg Tablet) 0.3 mg PO BID [facility] Last Admin: 05/30/22 08:09 Dose: 0.3 mg Dextrose (Dextrose 50% 50 Ml Vial) 0 ml IV UD PRN PRN Reason: Per Sliding Scale Diagnostic Test (Pha) (Accu-Chek 1 Each Strip) 1 each FS ACHS [facility] Last Admin: 05/30/22 07:45 Dose: 1 each Docusate Sodium (Docusate Sodium 100 Mg Capsule) 100 mg PO BID [facility] Last Admin: 05/30/22 08:08 Dose: 100 mg Enoxaparin Sodium (Enoxaparin 40 Mg/0.4 Ml Syringe) 40 mg SQ DAILY [facility] Last Admin: 05/30/22 08:08 Dose: 40 mg Glucose (Dextrose 31 Gm Oral.Susp) 15 gm PO PRN PRN PRN Reason: Hypoglycemia Hydralazine HCl (Hydralazine 20 Mg/Ml Vial) 20 mg IV Q4-6HP PRN PRN Reason: Hypertension Piperacillin Sod/Tazobactam (Sod 4.5 gm/ Dextrose) 50 mls @ 100 mls/hr IV Q6H [facility]; Protocol Last Infusion: 05/30/22 06:45 Dose: Infused Vancomycin HCl 1,500 mg/ (Sodium Chloride) 500 mls @ 333.3 mls/hr IV Q12H [facility] Last Infusion: 05/29/22 20:23 Dose: Infused Insulin Human Lispro (Insulin Lispro 1 Unit/0.01 Ml Unit) 0 unit SQ [facility]; Protocol Last Admin: 05/30/22 07:45 Dose: Not Given Labetalol HCl (Labetalol 5 Mg/Ml Ml) 10 mg IV Q10M PRN PRN Reason: Hypertension Lactulose (Lactulose 20 Gm/30 Ml Oral.Abbey) 10 gm PO DAILYP PRN PRN Reason: Constipation Metoprolol Tartrate (Metoprolol Tartrate 5 Mg/5 Ml Vial) 5 mg IV Q4HP PRN PRN Reason: Tachyarrhythmias Mupirocin (Mupirocin Oint 2% 22gm) 1 dose NARES BID [facility] Last Admin: 05/29/22 20:19 Dose: 1 dose Ondansetron HCl (Ondansetron 4 Mg/2 Ml Vial) 4 mg IV Q4HP PRN; Protocol PRN Reason: Nausea And Vomiting Last Admin: 05/27/22 08:55 Dose: 4 mg Ondansetron HCl (Ondansetron 4 Mg Odt Tablet) 4 mg SL Q4HP PRN PRN Reason: Nausea And Vomiting Last Admin: 05/28/22 23:38 Dose: 4 mg Promethazine HCl (Promethazine 25 Mg Tablet) 25 mg PO Q6HP PRN PRN Reason: Nausea And Vomiting Last Admin: 05/28/22 20:41 Dose: 25 mg Senna (Sennosides 1 Tablet) 2 tab PO HSP PRN PRN Reason: Constipation Sodium Chloride (0.9 % Sodium Chloride 10 Ml Syringe) 10 ml IV Q8 [facility] Last Admin: 05/30/22 05:50 Dose: 10 ml Vancomycin HCl (Vancomycin Per Pharmacy) 1 order IV [facility]; Protocol ABG Interpretation ABG results: 05/26/22 05/29/22 05/29/22 22:51 09:26 13:37 ABG Methemoglobin 0.2 L 0.3 L 0.2 L VBG pH 7.38 7.30 L 7.28 L VBG pCO2 64.4 H* 98.0 H* 102.1 H* VBG pO2 70.5 H 81.2 H 79.3 H VBG HCO3 37.4 H 47.2 H* 47.1 H* VBG Total CO2 39.4 H 50.3 H* 50.3 H* VBG O2 Saturation 89.1 H 90.9 H 91.5 H VBG Base Excess 10 H 16 H 15 H 05/29/22 05/29/22 15:07 17:22 ABG Methemoglobin 0.3 L 0.3 L VBG pH 7.30 L 7.32 VBG pCO2 101.9 H* 117.4 H* VBG pO2 58.1 H 39.7 VBG HCO3 48.6 H* 58.7 H* VBG Total CO2 51.7 H* 62.3 H* VBG O2 Saturation 86.6 H 74.0 H VBG Base Excess 17 H 26 H A/P Narrative A/P Narrative: Assessment: 71-year-old female with a history of hypertension, type 2 diabetes mellitus, chronic diastolic heart failure, restrictive lung disease, chronic hypoxia and intermittent compliance with supplemental oxygen, obesity who was recently treated for pneumonia with cefdinir and azithromycin presented to the emergency department for shortness of breath and admitted for acute on chronic hypoxic and acute on chronic hypercapnic respiratory failure likely secondary to bilateral pneumonia. The patient also has an acute on chronic diastolic heart failure exacerbation. Patient was started on antibiotics for pneumonia, diuretics for volume overload however that was complicated by rising PCO2 and respiratory acidosis requiring noninvasive ventilation. #Acute on chronic hypercapnic respiratory failure #Acute on chronic hypoxic respiratory failure #Acute on chronic diastolic heart failure #Community-acquired pneumonia, possibly due to aspiration #Moderate right pleural effusion and right lower lobe compressive atelectasis #Restrictive lung disease probably secondary to obesity #Atrial fibrillation with intermittent bradycardia #Type 2 diabetes mellitus #Hypertension #Obesity with BMI 49 #Probable obesity hypoventilation syndrome #At risk for obstructive sleep apnea Plan -Vancomycin IV and Zosyn for now. -Continue BiPAP and oxygen supplementation. -Monitor respiratory status closely, if the patient develops respiratory acidosis or altered mental status on BiPAP she will need to be intubated. -Scheduled duo nebs and as needed albuterol nebs. -Consider systemic steroids however no appreciable wheezing on exam and steroids may worsen the patient's fluid retention. -Lopressor IV as needed for A. fib with RVR. -Hold Lasix for now due to increasing bicarb level. -Consider right diagnostic and therapeutic thoracentesis when the patient is more stable. -Follow blood cultures-NGTD. -Humalog SSIlow. -Hold Coreg for now for bradycardia overnight. -Continue home clonidine, gabapentin, lovastatin. -PT and OT consult. -Speech therapy consult. -Consistent carbohydrate diet. -panel monitor. -DVT prophylaxis: Lovenox -Disposition: TBD, if the patient's respiratory status worsens or unable to wean off BiPAP consider transfer to a higher level of care. 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 Time Spent With Patient Time: Total time spent is greater than 50% in coordination of care (as documented) at patient's floor/unit and/or counseling patient:
[2022-05-30] MEDS: ONDANSETRON 4 MG/2 ML VIAL IV PRN (08:30)
[2022-05-30] MEDS ORDERED: POTASSIUM CHLORIDE 20 MEQ TABLET PO SCH (08:30)
[2022-05-30] MEDS: ACETAMINOPHEN 325 MG TABLET PO PRN (08:31)
[2022-05-30] MEDS: VANCOMYCIN 1,500 MG in 0.9 % SODIUM CHLORIDE 500 ML IV SCH ×2 (10:21→20:14)
[2022-05-30] MEDS: MUPIROCIN OINT 2% 22GM NARES SCH ×2 (10:36→20:13)
[2022-05-30] MEDS ORDERED: guaiFENesin/DEXTROMETHORPHAN ORAL SOL PO PRN (14:46)
[2022-05-31] MEDS: PIPERACILLIN SODIUM/TAZOBACTAM 4.5 GM in DEXTROSE 5% IN WATER 50 ML IV SCH ×5 (00:41→23:51)
[2022-05-31] MEDS: ACETAMINOPHEN 325 MG TABLET PO PRN (01:29)
[2022-05-31] MEDS: PROMETHAZINE 25 MG TABLET PO PRN (01:30)
[2022-05-31] MEDS: IPRATROPIUM/ALBUTEROL 3 ML AMPUL.NEB NEB SCH ×6 (04:28→22:50)
[2022-05-31] MEDS: 0.9 % SODIUM CHLORIDE 10 ML SYRINGE IV SCH ×3 (05:52→21:08)
--- NOTE | 2022-05-31 07:52 | EKG ---
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
[2022-05-31 08:04] LABS: Hematocrit 44.1 % (34.1-44.9); Hemoglobin 13.2 g/dL (11.2-15.7); Mean Cell Volume 93.6 fL (80.0-100.0); Mean Corpuscular HGB Conc 29.9 g/dL (31.0-36.0); Mean Platelet Volume 11.7 fL (8.8-12.5); Platelet Count 135 K/mcL (140-440); RBC 4.71 M/mcL (3.59-5.38); Red Cell Distribution Width 14.3 % (11.5-14.5); WBC 6.2 K/mcL (4.5-11.0)
[2022-05-31] MEDS: INSULIN LISPRO 1 UNIT/0.01 ML UNIT SQ SCH ×4 (08:15→21:16)
[2022-05-31 08:27] LABS: Eosinophils % (Manual) 6 % (0-7); Lymphocytes % 26 % (15-49); Monocytes % (Manual) 7 % (1-12); Platelet Estimate DECREASED (Normal); RBC Morphology NORMAL (Normal); Reactive Lymphocytes 1 % (0-2); Segmented Neutrophils % 60 % (38-78)
[2022-05-31 08:39] LABS: ALT/SGPT < 5 U/L (<40); AST/SGOT 7 U/L (<32); Albumin 3.4 gm/dL (3.2-5.2); Albumin/Globulin Ratio 1.4 (1.0-2.3); Alkaline Phosphatase 42 U/L (39-117); Bilirubin,Direct 0.2 mg/dL (<0.3); Bilirubin,Total 0.6 mg/dL (0.1-1.0); Blood Urea Nitrogen 9 mg/dL (8-23); Calcium 9.3 mg/dL (8.6-10.4); Carbon Dioxide 46 mmol/L (22-30); Chloride 87 mmol/L (96-108); Globulin 2.5 gm/dL (2.2-3.7); Glomerular Filtration Rate 88; Glucose 150 mg/dL (70-105); Lactate Dehydrogenase 140 U/L (135-225); Phosphorous 2.4 mg/dL (2.5-4.5); Triglycerides 164 mg/dL (<150); Uric Acid 3.7 mg/dL (2.5-8.0)
[2022-05-31] MEDS: MUPIROCIN OINT 2% 22GM NARES SCH ×2 (09:12→21:23)
[2022-05-31] MEDS: cloNIDine HCL 0.1 MG TABLET PO SCH ×2 (09:13→21:01)
[2022-05-31] MEDS: DOCUSATE SODIUM 100 MG CAPSULE PO SCH ×2 (09:16→21:09)
[2022-05-31] MEDS: ATORVASTATIN 10 MG TABLET PO SCH (09:26)
[2022-05-31] MEDS ORDERED: acetaZOLAMIDE SOD 500 MG VIAL IV ONE (10:00)
[2022-05-31] MEDS: FUROSEMIDE 20 MG/2 ML VIAL IV SCH ×2 (10:25→16:20)
--- NOTE | 2022-05-31 10:30 | Internal Med Progress Note ---
SUBJECTIVE Subjective Patient information: Note initiated : 05/31/22 at 10:21 am Service Date, if different from initiated Date: [] Patient: Cony Baig 71 y/o F admitted on 05/26/22 for Sob. Chief Complaint: [] Interval history: Ms. Baig is a 71-year-old female with a history of hypertension, type 2 diabetes mellitus, chronic diastolic heart failure, restrictive lung disease, chronic hypoxia and intermittent compliance with supplemental oxygen, obesity who was recently treated for pneumonia with cefdinir and azithromycin presented to the emergency department for shortness of breath. In the ED, the patient had a high-grade temperature of 99.0, her respiratory rate in the mid teens to upper 20s. The patient had a oxygen requirement of 4 L/min nasal cannula. She was hemodynamically stable with normal pulse rate. Patient had a normal WBC, normal platelet count, chemistry panel was notable for a severely elevated CO2 level of 43. Venous blood gas showed a pH of 7.43 and a PCO2 of 70.3, venous blood gas lactic acid was normal. Chest x-ray showed moderate bibasilar infiltrates suspicious for aspiration pneumonia. Patient was given ceftriaxone and IV azithromycin. Hospital medicine was consulted for admission. 05/27 Oxygen supplementation weaned down to 3 L/min, the patient did not tolerate BiPAP overnight because it made her anxious. Repeat VBG PCO2 improved from 70.3 to 64.4. MRSA nasal PCR was positive. CT chest without contrast showed a moderate left lower lobe pneumonia and small left pleural effusion, moderate to large right pleural effusion resulting in compressive atelectasis of the right lower lobe, pulmonary vascular congestion findings consistent with heart failure. Transthoracic echocardiogram report notable for a moderate concentric left ventricular hypertrophy, LVEF of 50 to 55%, grade 2 diastolic dysfunction, mildly reduced right ventricular systolic function. Continuing vancomycin IV per pharmacy and levofloxacin for pneumonia. Minimal urine output documented, increase Lasix from 40 mg IV to 60 mg IV twice daily. Respiratory virus panel and SARS-CoV-2 PCR negative. 05/28 Vitals stable overnight, bicarb level increasing. Acetazolamide 500 mg IV given once. Continues on Lasix IV however the patient's IV infiltrated, the patient did not allow for another IV to be placed so transition to oral Lasix. 1 dose of metolazone 5 mg with evening Lasix dose. Started linezolid and p.o. levofloxacin for pneumonia, discontinued IV vancomycin and IV levofloxacin. 05/29 Patient was very drowsy this morning, VBG showed a PCO2 of 98, venous pH of 7.3. Patient does not tolerate BiPAP, her mental status slowly improved after she woke up. Suspect the patient has severe underlying sleep apnea. We will repeat VBG in a couple hours. CPAP ordered for bedtime, unclear if the patient will tolerate CPAP. 05/30 Patient tolerated BiPAP most of the night, repeat ABG this morning showed an improvement in PCO2, pH normal. Potassium low, replaced. Repeat chest x-ray yesterday evening showed an interval worsening with moderate consolidated infiltrates in both mid and lower lungs. Transition antibiotics to IV vancomycin and Zosyn. We will hold off on diuretics today given the elevation in serum bicarbonate and risk of loop diuretics causing contraction alkalosis. Continue BiPAP today. 05/31-patient seen in room. Appears lethargic but overall doing well. Overnight on BiPAP. Repeat ABG today. Previous ABG PCO2 94/bicarb down from 49-46, remains alkalotic, continue Diamox/low-dose diuresis, continue nutrition support/physical therapies Constitutional Vitals: Vital Signs Temp Pulse Resp BP Pulse Ox O2 Del Method O2 Flow Rate 97.2 F 67 18 176/100 97 3 05/31/22 08:25 05/31/22 09:01 05/31/22 09:01 05/31/22 09:01 05/31/22 09:01 05/31/22 09:01 05/31/22 09:01 Period Temp Pulse Resp BP Sys/Najera Pulse Ox O2 Del Method O2 Flow Rate Last 24 Hr 97.2 F-98.7 F 44-86 15-26 118-176/56-100 92-99 BiPAP-Nasal Cannula 3-3 Intake and Output 05/30/22 05/31/22 05/31/22 19:59 03:59 11:59 Intake Total 840 290 50 Output Total 501 1201 1300 Balance 339 -601 -1250 Weight 116.392 kg Alert oriented Minimal labored breathing On noninvasive ventilation/supplemental oxygen around 3 L when off BiPAP Tender lower extremity, venous stasis changes Intake & Output: Intake & Output 05/30/22 05/31/22 05/31/22 19:59 03:59 11:59 Intake Total 840 290 50 Output Total 501 1201 1300 Balance 871 -251 -8279 Weight 116.392 kg Intake: IV 600 50 50 Zosyn 4.5 gm In Dextrose 5% in 100 50 50 Water 50 ml @ 100 mls/hr IV Q6H [facility] Rx#:[id number] Vancomycin 1,500 mg In Sodium 500 Chloride 0.9% 500 ml @ 333.3 mls/hr IV Q12H [facility] Rx#: [id number] Oral 240 240 Output: Urine Catheter Amount 700 Void Amount 512 539 8483 # of times incontinent of urine 1 1 Other: Meal Lunch Dinner Percent of Meal Consumed 50% 50% Feeding Ability Assist with Tray Set Up Assist with Tray Set Up Urine Appearance Clear Clear Clear Urine Color Yellow Pale Yellow Pale Urine Odor Normal Stool Size Moderate Stool Color Brown Stool Consistency Loose # Voids 1 # Bowel Movements 0 # of times incontinent of 0 Bowels OBJ DATA Labs CBC & Chem 7: 05/31/22 06:45 05/31/22 06:45 Labs: Abnormal Lab Results 05/31/22 05/31/22 05/31/22 06:45 06:45 06:45 MCV MCHC 29.9 L Plt Count 135 L Reactive Lymphocytes Platelet Estimate Decreased A RBC Morphology Stomatocytes POC pCO2 POC pO2 POC HCO3 POC Total CO2 POC ABG Base Excess ABG Methemoglobin ABG Lactic Acid VBG pH VBG pCO2 VBG pO2 VBG HCO3 VBG Total CO2 VBG O2 Saturation VBG Base Excess Hgb O2 Saturation Carboxyhemoglobin Potassium 3.0 L Chloride 87 L Carbon Dioxide 46 H* Anion Gap 5.0 L Glucose 150 H Phosphorus 2.4 L Lactate Dehydrogenase Total Protein Triglycerides 164 H Vancomycin Trough 25.4 H* 05/30/22 05/30/22 05/30/22 06:51 05:10 05:10 MCV MCHC 29.5 L Plt Count 139 L Reactive Lymphocytes Platelet Estimate Decreased A RBC Morphology Stomatocytes POC pCO2 94.5 H* POC pO2 57 L POC HCO3 60.9 H POC Total CO2 > 50.0 H* POC ABG Base Excess > 30.0 H ABG Methemoglobin ABG Lactic Acid VBG pH VBG pCO2 VBG pO2 VBG HCO3 VBG Total CO2 VBG O2 Saturation VBG Base Excess Hgb O2 Saturation 87.0 L Carboxyhemoglobin Potassium 3.0 L Chloride 80 L Carbon Dioxide 49 H* Anion Gap 7.0 L Glucose 155 H Phosphorus 2.1 L Lactate Dehydrogenase Total Protein 5.7 L Triglycerides 162 H Vancomycin Trough 05/29/22 05/29/22 05/29/22 19:16 17:22 15:07 MCV MCHC Plt Count Reactive Lymphocytes Platelet Estimate RBC Morphology Stomatocytes POC pCO2 107.4 H* POC pO2 79 L POC HCO3 59.3 H POC Total CO2 > 50.0 H* POC ABG Base Excess > 30.0 H ABG Methemoglobin 0.3 L 0.3 L ABG Lactic Acid < 0.3 L VBG pH 7.30 L VBG pCO2 117.4 H* 101.9 H* VBG pO2 58.1 H VBG HCO3 58.7 H* 48.6 H* VBG Total CO2 62.3 H* 51.7 H* VBG O2 Saturation 74.0 H 86.6 H VBG Base Excess 26 H 17 H Hgb O2 Saturation 93.0 L Carboxyhemoglobin 4.1 H 4.4 H Potassium Chloride Carbon Dioxide Anion Gap Glucose Phosphorus Lactate Dehydrogenase Total Protein Triglycerides Vancomycin Trough 05/29/22 05/29/22 05/29/22 13:37 09:26 05:14 MCV MCHC Plt Count Reactive Lymphocytes Platelet Estimate RBC Morphology Stomatocytes POC pCO2 POC pO2 POC HCO3 POC Total CO2 POC ABG Base Excess ABG Methemoglobin 0.2 L 0.3 L ABG Lactic Acid VBG pH 7.28 L 7.30 L VBG pCO2 102.1 H* 98.0 H* VBG pO2 79.3 H 81.2 H VBG HCO3 47.1 H* 47.2 H* VBG Total CO2 50.3 H* 50.3 H* VBG O2 Saturation 91.5 H 90.9 H VBG Base Excess 15 H 16 H Hgb O2 Saturation Carboxyhemoglobin 4.3 H 5.5 H Potassium Chloride 87 L Carbon Dioxide 48 H* Anion Gap 1.0 L Glucose 150 H Phosphorus Lactate Dehydrogenase 133 L Total Protein Triglycerides 169 H Vancomycin Trough 05/29/22 05:13 MCV 100.2 H MCHC 28.3 L Plt Count 136 L Reactive Lymphocytes 6 H Platelet Estimate Decreased A RBC Morphology Abnormal A Stomatocytes 2+ A POC pCO2 POC pO2 POC HCO3 POC Total CO2 POC ABG Base Excess ABG Methemoglobin ABG Lactic Acid VBG pH VBG pCO2 VBG pO2 VBG HCO3 VBG Total CO2 VBG O2 Saturation VBG Base Excess Hgb O2 Saturation Carboxyhemoglobin Potassium Chloride Carbon Dioxide Anion Gap Glucose Phosphorus Lactate Dehydrogenase Total Protein Triglycerides Vancomycin Trough Meds: Medications Acetaminophen (Acetaminophen 325 Mg Tablet) 650 mg PO Q6HP PRN; Protocol PRN Reason: Per Pain Protocol/Fever > 101 Last Admin: 05/31/22 01:29 Dose: 650 mg Albuterol Sulfate (Albuterol Sulfate 2.5 Mg/3 Ml Nebulizer) 2.5 mg NEB Q2HP PRN PRN Reason: wheezing Albuterol/Ipratropium (Ipratropium/Albuterol 3 Ml Ampul.Neb) 3 ml NEB Q4HRT [facility] Last Admin: 05/31/22 07:14 Dose: 3 ml Atorvastatin Calcium (Atorvastatin 10 Mg Tablet) 10 mg PO DAILY [facility] Last Admin: 05/31/22 09:26 Dose: 10 mg Clonidine HCl (Clonidine Hcl 0.1 Mg Tablet) 0.3 mg PO BID [facility] Last Admin: 05/31/22 09:13 Dose: 0.3 mg Dextrose (Dextrose 50% 50 Ml Vial) 0 ml IV UD PRN PRN Reason: Per Sliding Scale Diagnostic Test (Pha) (Accu-Chek 1 Each Strip) 1 each FS ACHS [facility] Last Admin: 05/31/22 07:10 Dose: 1 each Docusate Sodium (Docusate Sodium 100 Mg Capsule) 100 mg PO BID [facility] Last Admin: 05/31/22 09:16 Dose: 100 mg Enoxaparin Sodium (Enoxaparin 40 Mg/0.4 Ml Syringe) 40 mg SQ DAILY [facility] Last Admin: 05/30/22 08:08 Dose: 40 mg Furosemide (Furosemide 20 Mg/2 Ml Vial) 10 mg IV BIDD [facility] Glucose (Dextrose 31 Gm Oral.Susp) 15 gm PO PRN PRN PRN Reason: Hypoglycemia Guaifenesin (Guaifenesin/Dextromethorphan Oral [place]) 10 ml PO Q4HP PRN PRN Reason: Cough Hydralazine HCl (Hydralazine 20 Mg/Ml Vial) 20 mg IV Q4-6HP PRN PRN Reason: Hypertension Piperacillin Sod/Tazobactam (Sod 4.5 gm/ Dextrose) 50 mls @ 100 mls/hr IV Q6H [facility]; Protocol Last Infusion: 05/31/22 06:22 Dose: Infused Insulin Human Lispro (Insulin Lispro 1 Unit/0.01 Ml Unit) 0 unit SQ ACHS [facility]; Protocol Last Admin: 05/31/22 08:15 Dose: Not Given Labetalol HCl (Labetalol 5 Mg/Ml Ml) 10 mg IV Q10M PRN PRN Reason: Hypertension Lactulose (Lactulose 20 Gm/30 Ml Oral.[place]bey) 10 gm PO DAILYP PRN PRN Reason: Constipation Last Admin: 05/30/22 08:30 Dose: 10 gm Metoprolol Tartrate (Metoprolol Tartrate 5 Mg/5 Ml Vial) 5 mg IV Q4HP PRN PRN Reason: Tachyarrhythmias Mupirocin (Mupirocin Oint 2% 22gm) 1 dose NARES BID [facility] Last Admin: 05/31/22 09:12 Dose: 1 dose Ondansetron HCl (Ondansetron 4 Mg/2 Ml Vial) 4 mg IV Q4HP PRN; Protocol PRN Reason: Nausea And Vomiting Last Admin: 05/30/22 08:30 Dose: 4 mg Ondansetron HCl (Ondansetron 4 Mg Odt Tablet) 4 mg SL Q4HP PRN PRN Reason: Nausea And Vomiting Last Admin: 05/28/22 23:38 Dose: 4 mg Promethazine HCl (Promethazine 25 Mg Tablet) 25 mg PO Q6HP PRN PRN Reason: Nausea And Vomiting Last Admin: 05/31/22 01:30 Dose: 25 mg Senna (Sennosides 1 Tablet) 2 tab PO HSP PRN PRN Reason: Constipation Sodium Chloride (0.9 % Sodium Chloride 10 Ml Syringe) 10 ml IV Q8 [facility] Last Admin: 05/31/22 05:52 Dose: 10 ml Vancomycin HCl (Vancomycin Per Pharmacy) 1 order IV UD [facility]; Protocol ABG Interpretation ABG results: 05/26/22 05/29/22 05/29/22 22:51 09:26 13:37 ABG Methemoglobin 0.2 L 0.3 L 0.2 L VBG pH 7.38 7.30 L 7.28 L VBG pCO2 64.4 H* 98.0 H* 102.1 H* VBG pO2 70.5 H 81.2 H 79.3 H VBG HCO3 37.4 H 47.2 H* 47.1 H* VBG Total CO2 39.4 H 50.3 H* 50.3 H* VBG O2 Saturation 89.1 H 90.9 H 91.5 H VBG Base Excess 10 H 16 H 15 H 05/29/22 05/29/22 15:07 17:22 ABG Methemoglobin 0.3 L 0.3 L VBG pH 7.30 L 7.32 VBG pCO2 101.9 H* 117.4 H* VBG pO2 58.1 H 39.7 VBG HCO3 48.6 H* 58.7 H* VBG Total CO2 51.7 H* 62.3 H* VBG O2 Saturation 86.6 H 74.0 H VBG Base Excess 17 H 26 H A/P Narrative A/P Narrative: Assessment: 71-year-old female with a history of hypertension, type 2 diabetes mellitus, chronic diastolic heart failure, restrictive lung disease, chronic hy poxia and intermittent compliance with supplemental oxygen, obesity who was recently treated for pneumonia with cefdinir and azithromycin presented to the emergency department for shortness of breath and admitted for acute on chronic hypoxic and acute on chronic hypercapnic respiratory failure likely secondary to bilateral pneumonia. The patient also has an acute on chronic diastolic heart failure exacerbation. Patient was started on antibiotics for pneumonia, diuretics for volume overload however that was complicated by rising PCO2 and respiratory acidosis requiring noninvasive ventilation. * Acute respiratory failure with hypoxia and hypercapnia gradually improving, continuing noninvasive ventilation. Baseline CO2 around 75-80. * Chronic diastolic heart failure responding to diuretics. However concurrent contraction alkalosis requiring Diamox. * Aspiration pneumonia clinically improving * Atrial fibrillation rate controlled, Coreg held in light of bradycardia arrhythmia * Type II DM * Hypertension * Morbid obesity with BMI over 40 likely [facility]AYLEN/OHS Plan * De-escalate antibiotics in 24 hours * Noninvasive ventilation * Blood gas * Diamox for contraction alkalosis * PT OT ST eval * Disposition: TBD, if the patient's respiratory status worsens or unable to wean off BiPAP consider transfer to a higher level of care. 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 Time Spent With Patient Time: Total time spent is greater than 50% in coordination of care (as documented) at patient's floor/unit and/or counseling patient:
[2022-05-31] MEDS: ENOXAPARIN 40 MG/0.4 ML SYRINGE SQ SCH (12:42)
[2022-05-31] MEDS: POTASSIUM CHLORIDE 20 MEQ TABLET PO SCH ×2 (17:35→20:59)
[2022-05-31] MEDS: GABAPENTIN 100 MG CAPSULE PO SCH (21:00)
[2022-05-31] MEDS: CARVEDILOL 6.25 MG TABLET PO SCH (21:00)
[2022-06-01] MEDS: ACETAMINOPHEN 325 MG TABLET PO PRN ×2 (00:32→10:02)
[2022-06-01] MEDS: IPRATROPIUM/ALBUTEROL 3 ML AMPUL.NEB NEB SCH ×6 (04:00→23:55)
[2022-06-01] MEDS: PIPERACILLIN SODIUM/TAZOBACTAM 4.5 GM in DEXTROSE 5% IN WATER 50 ML IV SCH (05:14)
[2022-06-01] MEDS: 0.9 % SODIUM CHLORIDE 10 ML SYRINGE IV SCH ×4 (05:15→21:16)
[2022-06-01] MEDS: INSULIN LISPRO 1 UNIT/0.01 ML UNIT SQ SCH ×4 (07:24→21:11)
[2022-06-01] MEDS: FUROSEMIDE 20 MG/2 ML VIAL IV SCH ×2 (07:37→16:28)
--- NOTE | 2022-06-01 08:13 | Internal Med Progress Note ---
SUBJECTIVE Subjective Patient information: Note initiated : 06/01/22 at 8:08 am Service Date, if different from initiated Date: [] Patient: Cony Baig 71 y/o F admitted on 05/26/22 for Sob. Chief Complaint: [] Interval history: Ms. Baig is a 71-year-old female with a history of hypertension, type 2 diabetes mellitus, chronic diastolic heart failure, restrictive lung disease, chronic hypoxia and intermittent compliance with supplemental oxygen, obesity who was recently treated for pneumonia with cefdinir and azithromycin presented to the emergency department for shortness of breath. In the ED, the patient had a high-grade temperature of 99.0, her respiratory rate in the mid teens to upper 20s. The patient had a oxygen requirement of 4 L/min nasal cannula. She was hemodynamically stable with normal pulse rate. Patient had a normal WBC, normal platelet count, chemistry panel was notable for a severely elevated CO2 level of 43. Venous blood gas showed a pH of 7.43 and a PCO2 of 70.3, venous blood gas lactic acid was normal. Chest x-ray showed moderate bibasilar infiltrates suspicious for aspiration pneumonia. Patient was given ceftriaxone and IV azithromycin. Hospital medicine was consulted for admission. 05/27 Oxygen supplementation weaned down to 3 L/min, the patient did not tolerate BiPAP overnight because it made her anxious. Repeat VBG PCO2 improved from 70.3 to 64.4. MRSA nasal PCR was positive. CT chest without contrast showed a moderate left lower lobe pneumonia and small left pleural effusion, moderate to large right pleural effusion resulting in compressive atelectasis of the right lower lobe, pulmonary vascular congestion findings consistent with heart failure. Transthoracic echocardiogram report notable for a moderate concentric left ventricular hypertrophy, LVEF of 50 to 55%, grade 2 diastolic dysfunction, mildly reduced right ventricular systolic function. Continuing vancomycin IV per pharmacy and levofloxacin for pneumonia. Minimal urine output documented, increase Lasix from 40 mg IV to 60 mg IV twice daily. Respiratory virus panel and SARS-CoV-2 PCR negative. 05/28 Vitals stable overnight, bicarb level increasing. Acetazolamide 500 mg IV given once. Continues on Lasix IV however the patient's IV infiltrated, the patient did not allow for another IV to be placed so transition to oral Lasix. 1 dose of metolazone 5 mg with evening Lasix dose. Started linezolid and p.o. levofloxacin for pneumonia, discontinued IV vancomycin and IV levofloxacin. 05/29 Patient was very drowsy this morning, VBG showed a PCO2 of 98, venous pH of 7.3. Patient does not tolerate BiPAP, her mental status slowly improved after she woke up. Suspect the patient has severe underlying sleep apnea. We will repeat VBG in a couple hours. CPAP ordered for bedtime, unclear if the patient will tolerate CPAP. 05/30 Patient tolerated BiPAP most of the night, repeat ABG this morning showed an improvement in PCO2, pH normal. Potassium low, replaced. Repeat chest x-ray yesterday evening showed an interval worsening with moderate consolidated infiltrates in both mid and lower lungs. Transition antibiotics to IV vancomycin and Zosyn. We will hold off on diuretics today given the elevation in serum bicarbonate and risk of loop diuretics causing contraction alkalosis. Continue BiPAP today. 05/31-patient seen in room. Appears lethargic but overall doing well. Overnight on BiPAP. Repeat ABG today. Previous ABG PCO2 94/bicarb down from 49-46, remains alkalotic, continue Diamox/low-dose diuresis, continue nutrition support/physical therapies 06/01-patient seen in room. No overnight events. Feels a lot better this morning. Down to 2 L oxygen. Continue physical therapy. Anticipate SNF placement in the next 24 to 48 hours, continue physical therapy, continue gentle diuresis, additional dose of Diamox for contraction alkalosis. Net -4000 cc fluid balance since admission. Constitutional Vitals: Vital Signs Temp Pulse Resp BP Pulse Ox O2 Del Method O2 Flow Rate 97.3 F 67 18 139/77 92 1.5 06/01/22 04:02 06/01/22 07:37 06/01/22 07:37 06/01/22 06:02 06/01/22 07:37 06/01/22 07:37 06/01/22 07:37 Period Temp Pulse Resp BP Sys/Najera Pulse Ox O2 Del Method O2 Flow Rate Last 24 Hr 97.2 F-98.5 F 52-82 14-25 117-176/62-102 90-99 BiPAP-Nasal Cannula 1-3 Intake and Output 05/31/22 06/01/22 06/01/22 19:59 03:59 11:59 Intake Total 1030 1190 690 Output Total 2575 275 850 Balance -1545 915 -160 Weight 114.577 kg alert oriented In good spirits On 2 L oxygen Lymphedema improved No anxiety Intake & Output: Intake & Output 05/31/22 06/01/22 06/01/22 19:59 03:59 11:59 Intake Total 1030 1190 690 Output Total 2575 275 850 Balance -1545 915 -160 Weight 114.577 kg Intake: IV 100 50 50 Zosyn 4.5 gm In Dextrose 5% in 100 50 50 Water 50 ml @ 100 mls/hr IV Q6H [facility] Rx#:[id number] Oral 930 1140 640 Output: Void Amount 2075 850 Urine/Stool Mix 500 275 Other: Meal Lunch snack Percent of Meal Consumed 50% 75% Feeding Ability Independent Independent Urine Appearance Clear Clear External Urinary Catheter Clear Urine Color Yellow Yellow External Urinary Catheter Yellow Stool Size Small Moderate Stool Color Brown Brown Stool Consistency Formed Loose OBJ DATA Labs CBC & Chem 7: 05/31/22 06:45 05/31/22 06:45 Labs: Abnormal Lab Results 05/31/22 05/31/22 05/31/22 12:26 06:45 06:45 MCHC Plt Count Reactive Lymphocytes Platelet Estimate RBC Morphology Stomatocytes POC pCO2 82.3 H* POC pO2 POC HCO3 54.7 H POC Total CO2 > 50.0 H* POC ABG Base Excess > 30.0 H ABG Methemoglobin ABG Lactic Acid VBG pH VBG pCO2 VBG pO2 VBG HCO3 VBG Total CO2 VBG O2 Saturation VBG Base Excess Hgb O2 Saturation Carboxyhemoglobin Potassium 3.0 L Chloride 87 L Carbon Dioxide 46 H* Anion Gap 5.0 L Glucose 150 H Phosphorus 2.4 L Total Protein Triglycerides 164 H Vancomycin Trough 25.4 H* 05/31/22 05/30/22 05/30/22 06:45 06:51 05:10 MCHC 29.9 L Plt Count 135 L Reactive Lymphocytes Platelet Estimate Decreased A RBC Morphology Stomatocytes POC pCO2 94.5 H* POC pO2 57 L POC HCO3 60.9 H POC Total CO2 > 50.0 H* POC ABG Base Excess > 30.0 H ABG Methemoglobin ABG Lactic Acid VBG pH VBG pCO2 VBG pO2 VBG HCO3 VBG Total CO2 VBG O2 Saturation VBG Base Excess Hgb O2 Saturation 87.0 L Carboxyhemoglobin Potassium 3.0 L Chloride 80 L Carbon Dioxide 49 H* Anion Gap 7.0 L Glucose 155 H Phosphorus 2.1 L Total Protein 5.7 L Triglycerides 162 H Vancomycin Trough 05/30/22 05/29/22 05/29/22 05:10 19:16 17:22 MCHC 29.5 L Plt Count 139 L Reactive Lymphocytes Platelet Estimate Decreased A RBC Morphology Stomatocytes POC pCO2 107.4 H* POC pO2 79 L POC HCO3 59.3 H POC Total CO2 > 50.0 H* POC ABG Base Excess > 30.0 H ABG Methemoglobin 0.3 L ABG Lactic Acid < 0.3 L VBG pH VBG pCO2 117.4 H* VBG pO2 VBG HCO3 58.7 H* VBG Total CO2 62.3 H* VBG O2 Saturation 74.0 H VBG Base Excess 26 H Hgb O2 Saturation 93.0 L Carboxyhemoglobin 4.1 H Potassium Chloride Carbon Dioxide Anion Gap Glucose Phosphorus Total Protein Triglycerides Vancomycin Trough 05/29/22 05/29/22 05/29/22 15:07 13:37 09:26 MCHC Plt Count Reactive Lymphocytes Platelet Estimate RBC Morphology Stomatocytes POC pCO2 POC pO2 POC HCO3 POC Total CO2 POC ABG Base Excess ABG Methemoglobin 0.3 L 0.2 L 0.3 L ABG Lactic Acid VBG pH 7.30 L 7.28 L 7.30 L VBG pCO2 101.9 H* 102.1 H* 98.0 H* VBG pO2 58.1 H 79.3 H 81.2 H VBG HCO3 48.6 H* 47.1 H* 47.2 H* VBG Total CO2 51.7 H* 50.3 H* 50.3 H* VBG O2 Saturation 86.6 H 91.5 H 90.9 H VBG Base Excess 17 H 15 H 16 H Hgb O2 Saturation Carboxyhemoglobin 4.4 H 4.3 H 5.5 H Potassium Chloride Carbon Dioxide Anion Gap Glucose Phosphorus Total Protein Triglycerides Vancomycin Trough 05/29/22 05:13 MCHC Plt Count Reactive Lymphocytes 6 H Platelet Estimate Decreased A RBC Morphology Abnormal A Stomatocytes 2+ A POC pCO2 POC pO2 POC HCO3 POC Total CO2 POC ABG Base Excess ABG Methemoglobin ABG Lactic Acid VBG pH VBG pCO2 VBG pO2 VBG HCO3 VBG Total CO2 VBG O2 Saturation VBG Base Excess Hgb O2 Saturation Carboxyhemoglobin Potassium Chloride Carbon Dioxide Anion Gap Glucose Phosphorus Total Protein Triglycerides Vancomycin Trough Meds: Medications Acetaminophen (Acetaminophen 325 Mg Tablet) 650 mg PO Q6HP PRN; Protocol PRN Reason: Per Pain Protocol/Fever > 101 Last Admin: 06/01/22 00:32 Dose: 650 mg Albuterol Sulfate (Albuterol Sulfate 2.5 Mg/3 Ml Nebulizer) 2.5 mg NEB Q2HP PRN PRN Reason: wheezing Albuterol/Ipratropium (Ipratropium/Albuterol 3 Ml Ampul.Neb) 3 ml NEB Q4HRT [facility] Last Admin: 06/01/22 07:35 Dose: 3 ml Atorvastatin Calcium (Atorvastatin 10 Mg Tablet) 10 mg PO DAILY [facility] Last Admin: 05/31/22 09:26 Dose: 10 mg Carvedilol (Carvedilol 6.25 Mg Tablet) 6.25 mg PO BID [facility] Last Admin: 05/31/22 21:00 Dose: 6.25 mg Clonidine HCl (Clonidine Hcl 0.1 Mg Tablet) 0.3 mg PO BID [facility] Last Admin: 05/31/22 21:01 Dose: 0.3 mg Dextrose (Dextrose 50% 50 Ml Vial) 0 ml IV UD PRN PRN Reason: Per Sliding Scale Diagnostic Test (Pha) (Accu-Chek 1 Each Strip) 1 each FS ACHS [facility] Last Admin: 06/01/22 07:21 Dose: 1 each Docusate Sodium (Docusate Sodium 100 Mg Capsule) 100 mg PO BID [facility] Last Admin: 05/31/22 21:09 Dose: Not Given Enoxaparin Sodium (Enoxaparin 40 Mg/0.4 Ml Syringe) 40 mg SQ DAILY [facility] Last Admin: 05/31/22 12:42 Dose: Not Given Furosemide (Furosemide 20 Mg/2 Ml Vial) 10 mg IV BIDD [facility] Last Admin: 06/01/22 07:37 Dose: 10 mg Gabapentin (Gabapentin 100 Mg Capsule) 100 mg PO BID [facility] Last Admin: 05/31/22 21:00 Dose: 100 mg Glucose (Dextrose 31 Gm Oral.Susp) 15 gm PO PRN PRN PRN Reason: Hypoglycemia Guaifenesin (Guaifenesin/Dextromethorphan Oral [place]) 10 ml PO Q4HP PRN PRN Reason: Cough Hydralazine HCl (Hydralazine 20 Mg/Ml Vial) 20 mg IV Q4-6HP PRN PRN Reason: Hypertension Piperacillin Sod/Tazobactam (Sod 4.5 gm/ Dextrose) 50 mls @ 100 mls/hr IV Q6H [facility]; Protocol Last Infusion: 06/01/22 05:48 Dose: Infused Insulin Human Lispro (Insulin Lispro 1 Unit/0.01 Ml Unit) 0 unit SQ ACHS [facility]; Protocol Last Admin: 06/01/22 07:24 Dose: 1 unit Labetalol HCl (Labetalol 5 Mg/Ml Ml) 10 mg IV Q10M PRN PRN Reason: Hypertension Lactulose (Lactulose 20 Gm/30 Ml Oral.[place]bey) 10 gm PO DAILYP PRN PRN Reason: Constipation Last Admin: 05/30/22 08:30 Dose: 10 gm Metoprolol Tartrate (Metoprolol Tartrate 5 Mg/5 Ml Vial) 5 mg IV Q4HP PRN PRN Reason: Tachyarrhythmias Mupirocin (Mupirocin Oint 2% 22gm) 1 dose NARES BID [facility] Last Admin: 05/31/22 21:23 Dose: 1 dose Ondansetron HCl (Ondansetron 4 Mg/2 Ml Vial) 4 mg IV Q4HP PRN; Protocol PRN Reason: Nausea And Vomiting Last Admin: 05/30/22 08:30 Dose: 4 mg Ondansetron HCl (Ondansetron 4 Mg Odt Tablet) 4 mg SL Q4HP PRN PRN Reason: Nausea And Vomiting Last Admin: 05/28/22 23:38 Dose: 4 mg Dapagliflozin [ (Farxiga] 5 Mg Tablet) 1 dose PO QAM [place] Promethazine HCl (Promethazine 25 Mg Tablet) 25 mg PO Q6HP PRN PRN Reason: Nausea And Vomiting Last Admin: 05/31/22 01:30 Dose: 25 mg Senna (Sennosides 1 Tablet) 2 tab PO HSP PRN PRN Reason: Constipation Sodium Chloride (0.9 % Sodium Chloride 10 Ml Syringe) 10 ml IV Q8 [facility] Last Admin: 06/01/22 05:49 Dose: 10 ml Vancomycin HCl (Vancomycin Per Pharmacy) 1 order IV UD [facility]; Protocol ABG Interpretation ABG results: 05/26/22 05/29/22 05/29/22 22:51 09:26 13:37 ABG Methemoglobin 0.2 L 0.3 L 0.2 L VBG pH 7.38 7.30 L 7.28 L VBG pCO2 64.4 H* 98.0 H* 102.1 H* VBG pO2 70.5 H 81.2 H 79.3 H VBG HCO3 37.4 H 47.2 H* 47.1 H* VBG Total CO2 39.4 H 50.3 H* 50.3 H* VBG O2 Saturation 89.1 H 90.9 H 91.5 H VBG Base Excess 10 H 16 H 15 H 05/29/22 05/29/22 15:07 17:22 ABG Methemoglobin 0.3 L 0.3 L VBG pH 7.30 L 7.32 VBG pCO2 101.9 H* 117.4 H* VBG pO2 58.1 H 39.7 VBG HCO3 48.6 H* 58.7 H* VBG Total CO2 51.7 H* 62.3 H* VBG O2 Saturation 86.6 H 74.0 H VBG Base Excess 17 H 26 H A/P Narrative A/P Narrative: Assessment: 71-year-old female with a history of hypertension, type 2 diabetes mellitus, chronic diastolic heart failure, restrictive lung disease, chronic hypoxia and intermittent compliance with supplemental oxygen, obesity who was recently treated for pneumonia with cefdinir and azithromycin presented to the emergency department for shortness of breath and admitted for acute on chronic hypoxic and acute on chronic hypercapnic respiratory failure likely secondary to bilateral pneumonia. The patient also has an acute on chronic diastolic heart failure exacerbation. Patient was started on antibiotics for pneumonia, diuretics for volume overload however that was complicated by rising PCO2 and respiratory acidosis requiring noninvasive ventilation. * Acute respiratory failure with hypoxia and hypercapnia gradually improving, off noninvasive ventilation, now close to baseline. * Chronic diastolic heart failure responding to diuretics. * Aspiration pneumonia clinically improving, discontinue vancomycin * Contraction alkalosis additional dose Diamox today * Atrial fibrillation rate controlled, Coreg held in light of bradycardia arrhythmia * Type II DM on sliding scale insulin/ * Hypertension on clonidine/Coreg * Neuropathy on gabapentin * Morbid obesity with BMI over 40 likely underlying concurrent KAYLEN/OHS Plan * DC vancomycin * DC NIV * Additional dose Diamox * PT OT ST eval * Disposition: Possibly SNF, case management to coordinate Time Spent With Patient Time: Total time spent is greater than 50% in coordination of care (as documented) at patient's floor/unit and/or counseling patient:
[2022-06-01 08:23] LABS: Vancomycin,Random 12.4 ug/mL
[2022-06-01] MEDS: GABAPENTIN 100 MG CAPSULE PO SCH ×2 (09:51→21:16)
[2022-06-01] MEDS: ENOXAPARIN 40 MG/0.4 ML SYRINGE SQ SCH (09:51)
[2022-06-01] MEDS: cloNIDine HCL 0.1 MG TABLET PO SCH ×2 (10:02→21:16)
[2022-06-01] MEDS: ATORVASTATIN 10 MG TABLET PO SCH (10:02)
[2022-06-01] MEDS: CARVEDILOL 6.25 MG TABLET PO SCH ×2 (10:02→21:16)
[2022-06-01] MEDS: DOCUSATE SODIUM 100 MG CAPSULE PO SCH ×2 (10:03→21:16)
[2022-06-01] MEDS: MUPIROCIN OINT 2% 22GM NARES SCH ×2 (10:05→21:16)
[2022-06-01] MEDS ORDERED: acetaZOLAMIDE SOD 500 MG VIAL IV SCH (10:15)
[2022-06-01 11:28] LABS: ALT/SGPT < 5 U/L (<40); AST/SGOT 6 U/L (<32); Albumin 3.3 gm/dL (3.2-5.2); Albumin/Globulin Ratio 1.2 (1.0-2.3); Alkaline Phosphatase 47 U/L (39-117); Bilirubin,Direct < 0.2 mg/dL (0-0.3); Bilirubin,Total 0.6 mg/dL (0.1-1.0); Blood Urea Nitrogen 10 mg/dL (8-23); Calcium 9.5 mg/dL (8.6-10.4); Carbon Dioxide 41 mmol/L (22-30); Chloride 91 mmol/L (96-108); Globulin 2.8 gm/dL (2.2-3.7); Glomerular Filtration Rate 75; Glucose 201 mg/dL (70-105); Lactate Dehydrogenase 161 U/L (135-225); Phosphorous 2.4 mg/dL (2.5-4.5); Triglycerides 168 mg/dL (<150); Uric Acid 3.3 mg/dL (2.5-8.0)
[2022-06-01] MEDS: POTASSIUM CHLORIDE 20 MEQ TABLET PO SCH (16:29)
[2022-06-01] MEDS: AMOXICILLIN/POTASSIUM CLAV 875 MG TABLET PO SCH (16:30)
[2022-06-01] MEDS: APIXABAN 5 MG TABLET PO SCH (21:16)
[2022-06-02] MEDS: IPRATROPIUM/ALBUTEROL 3 ML AMPUL.NEB NEB SCH ×3 (03:14→11:25)
[2022-06-02] MEDS: 0.9 % SODIUM CHLORIDE 10 ML SYRINGE IV SCH ×3 (05:20→21:17)
[2022-06-02] MEDS: INSULIN LISPRO 1 UNIT/0.01 ML UNIT SQ SCH ×4 (07:08→21:02)
[2022-06-02 07:35] LABS: Basophils # (Auto) 0.04 K/mcL (0.00-0.30); Basophils % (Auto) 0.4 % (0.0-2.0); Eosinophils # (Auto) 0.54 K/mcL (0.00-0.70); Hemoglobin 13.7 g/dL (11.2-15.7); Lymphocytes # (Auto) 2.36 K/mcL (1.50-4.80); Lymphocytes % (Auto) 26.3 % (15.5-49.0); Mean Cell Volume 90.5 fL (80.0-100.0); Mean Corpuscular HGB Conc 31.9 g/dL (31.0-36.0); Mean Platelet Volume 10.9 fL (8.8-12.5); Monocytes # (Auto) 0.85 K/mcL (0.10-0.90); Monocytes % (Auto) 9.5 % (1.0-12.0); Neutrophils % (Auto) 56.7 % (38.0-78.0); Platelet Count 163 K/mcL (140-440); RBC 4.75 M/mcL (3.59-5.38)
[2022-06-02 07:44] LABS: ALT/SGPT < 5 U/L (<40); AST/SGOT 10 U/L (<32); Albumin 3.6 gm/dL (3.2-5.2); Albumin/Globulin Ratio 1.4 (1.0-2.3); Alkaline Phosphatase 50 U/L (39-117); Bilirubin,Total 0.7 mg/dL (0.1-1.0); Blood Urea Nitrogen 11 mg/dL (8-23); Calcium 9.1 mg/dL (8.6-10.4); Carbon Dioxide 31 mmol/L (22-30); Chloride 93 mmol/L (96-108); Globulin 2.6 gm/dL (2.2-3.7); Glomerular Filtration Rate 75; Glucose 137 mg/dL (70-105)
[2022-06-02] MEDS: cloNIDine HCL 0.1 MG TABLET PO SCH ×2 (08:45→21:16)
[2022-06-02] MEDS: DOCUSATE SODIUM 100 MG CAPSULE PO SCH ×2 (08:46→21:17)
[2022-06-02] MEDS: GABAPENTIN 100 MG CAPSULE PO SCH ×2 (08:46→21:17)
[2022-06-02] MEDS: POTASSIUM CHLORIDE 20 MEQ TABLET PO SCH ×2 (08:46→17:02)
[2022-06-02] MEDS: AMOXICILLIN/POTASSIUM CLAV 875 MG TABLET PO SCH ×2 (08:46→17:02)
[2022-06-02] MEDS: APIXABAN 5 MG TABLET PO SCH ×2 (08:46→21:17)
[2022-06-02] MEDS: ATORVASTATIN 10 MG TABLET PO SCH (08:47)
[2022-06-02] MEDS: CARVEDILOL 6.25 MG TABLET PO SCH ×2 (08:47→21:17)
[2022-06-02] MEDS: FUROSEMIDE 20 MG/2 ML VIAL IV SCH (08:47)
[2022-06-02] MEDS: MUPIROCIN OINT 2% 22GM NARES SCH ×2 (09:57→21:02)
--- NOTE | 2022-06-02 12:10 | Internal Med Progress Note ---
SUBJECTIVE Subjective Patient information: Note initiated : 06/02/22 at 11:59 am Service Date, if different from initiated Date: [] Patient: Cony Baig 71 y/o F admitted on 05/26/22 for Sob. Chief Complaint: [] Interval history: Ms. Baig is a 71-year-old female with a history of hypertension, type 2 diabetes mellitus, chronic diastolic heart failure, restrictive lung disease, chronic hypoxia and intermittent compliance with supplemental oxygen, obesity who was recently treated for pneumonia with cefdinir and azithromycin presented to the emergency department for shortness of breath. In the ED, the patient had a high-grade temperature of 99.0, her respiratory rate in the mid teens to upper 20s. The patient had a oxygen requirement of 4 L/min nasal cannula. She was hemodynamically stable with normal pulse rate. Patient had a normal WBC, normal platelet count, chemistry panel was notable for a severely elevated CO2 level of 43. Venous blood gas showed a pH of 7.43 and a PCO2 of 70.3, venous blood gas lactic acid was normal. Chest x-ray showed moderate bibasilar infiltrates suspicious for aspiration pneumonia. Patient was given ceftriaxone and IV azithromycin. Hospital medicine was consulted for admission. 05/27 Oxygen supplementation weaned down to 3 L/min, the patient did not tolerate BiPAP overnight because it made her anxious. Repeat VBG PCO2 improved from 70.3 to 64.4. MRSA nasal PCR was positive. CT chest without contrast showed a moderate left lower lobe pneumonia and small left pleural effusion, moderate to large right pleural effusion resulting in compressive atelectasis of the right lower lobe, pulmonary vascular congestion findings consistent with heart failure. Transthoracic echocardiogram report notable for a moderate concentric left ventricular hypertrophy, LVEF of 50 to 55%, grade 2 diastolic dysfunction, mildly reduced right ventricular systolic function. Continuing vancomycin IV per pharmacy and levofloxacin for pneumonia. Minimal urine output documented, increase Lasix from 40 mg IV to 60 mg IV twice daily. Respiratory virus panel and SARS-CoV-2 PCR negative. 05/28 Vitals stable overnight, bicarb level increasing. Acetazolamide 500 mg IV given once. Continues on Lasix IV however the patient's IV infiltrated, the patient did not allow for another IV to be placed so transition to oral Lasix. 1 dose of metolazone 5 mg with evening Lasix dose. Started linezolid and p.o. levofloxacin for pneumonia, discontinued IV vancomycin and IV levofloxacin. 05/29 Patient was very drowsy this morning, VBG showed a PCO2 of 98, venous pH of 7.3. Patient does not tolerate BiPAP, her mental status slowly improved after she woke up. Suspect the patient has severe underlying sleep apnea. We will repeat VBG in a couple hours. CPAP ordered for bedtime, unclear if the patient will tolerate CPAP. 05/30 Patient tolerated BiPAP most of the night, repeat ABG this morning showed an improvement in PCO2, pH normal. Potassium low, replaced. Repeat chest x-ray yesterday evening showed an interval worsening with moderate consolidated infiltrates in both mid and lower lungs. Transition antibiotics to IV vancomycin and Zosyn. We will hold off on diuretics today given the elevation in serum bicarbonate and risk of loop diuretics causing contraction alkalosis. Continue BiPAP today. 05/31-patient seen in room. Appears lethargic but overall doing well. Overnight on BiPAP. Repeat ABG today. Previous ABG PCO2 94/bicarb down from 49-46, remains alkalotic, continue Diamox/low-dose diuresis, continue nutrition support/physical therapies 06/01-patient seen in room. No overnight events. Feels a lot better this morning. Down to 2 L oxygen. Continue physical therapy. Anticipate SNF placement in the next 24 to 48 hours, continue physical therapy, continue gentle diuresis, additional dose of Diamox for contraction alkalosis. Net -4000 cc fluid balance since admission. 06/02: Patient is currently on 2 L/min of nasal cannula oxygen's. Otherwise there was no other major overnight events. She is experiencing improving degree of shortness of breath. She is still complaining of nonproductive cough. She denies any chest pain. She denies any palpitations. She denies any wheezing. She denies any fever, chills, or diaphoresis. She denies any other pain or d iscomfort. Switch Lasix from IV to 20 Mg p.o. twice daily. Continue Coreg as part of the treatment for heart failure management. Continue supplemental oxygen therapy, wean down or off as tolerated. Patient uses oxygen as needed at home. Continue Augmentin for aspiration pneumonia. Continue Coreg and Eliquis for atrial fibrillation's rate controlled and anticoagulations, respectively. Pending physical therapy evaluations for placement planning. Constitutional Vitals: Vital Signs Temp Pulse Resp BP Pulse Ox O2 Del Method O2 Flow Rate 37.7 C H 65 20 133/78 97 2 06/02/22 08:00 06/02/22 11:26 06/02/22 11:26 06/02/22 08:00 06/02/22 11:26 06/02/22 11:26 06/02/22 11:26 Period Temp Pulse Resp BP Sys/Najera Pulse Ox O2 Del Method O2 Flow Rate Last 24 Hr 36.5 C-37.7 C 59-75 16-23 117-162/72-92 91-98 Nasal Cannula- Nasal Cannula 2-3 Intake and Output 06/01/22 06/02/22 06/02/22 19:59 03:59 11:59 Intake Total 120 800 350 Output Total 1851 825 Balance -1731 -25 350 Weight 112.718 kg Intake & Output: Intake & Output 06/01/22 06/02/22 06/02/22 19:59 03:59 11:59 Intake Total 120 800 350 Output Total 1851 825 Balance -1731 -25 350 Weight 112.718 kg Intake: Oral 120 800 350 Output: Void Amount 1850 825 # of times incontinent of urine 1 Other: Meal Dinner Breakfast Percent of Meal Consumed 100% 100% Feeding Ability Independent Independent Urine Appearance Clear Clear External Urinary Catheter Clear Clear Urine Color Bright Yellow Yellow Pale External Urinary Catheter Yellow Yellow Urine Odor Normal Normal External Urinary Catheter Normal # Voids 1 Head Head exam: Present atraumatic and normal inspection Eye Eye exam: Present normal appearance ENT ENT exam: Present mucous membranes moist, normal exam and normal external ear exam Additional comments: Nasal cannula in place Neck Neck exam: Present normal inspection Respiratory Respiratory exam: Present rhonchi Cardiovascular Cardiovascular exam: Present diastolic murmur, irregular rhythm and systolic murmur GI/Abdominal GI/Abdominal exam: Present normal bowel sounds Extremities Exam Extremities exam: Present pedal edema Back Exam Back exam: Present normal inspection Neurological Exam Neurological exam: Present alert and oriented X3 Skin Skin exam: Present intact and warm OBJ DATA Labs CBC & Chem 7: 06/02/22 05:33 06/02/22 05:32 Labs: Abnormal Lab Results 06/02/22 06/02/22 06/01/22 05:33 05:32 09:54 MCHC RDW 15.0 H Plt Count Immature Gran % (Auto) 1.1 H Immature Gran # 0.10 H Platelet Estimate POC pCO2 POC HCO3 POC Total CO2 POC ABG Base Excess Potassium 3.2 L Chloride 93 L 91 L Carbon Dioxide 31 H 41 H* Anion Gap 6.0 L Glucose 137 H 201 H Phosphorus 2.4 L Triglycerides 168 H Vancomycin Trough 05/31/22 05/31/22 05/31/22 12:26 06:45 06:45 MCHC RDW Plt Count Immature Gran % (Auto) Immature Gran # Platelet Estimate POC pCO2 82.3 H* POC HCO3 54.7 H POC Total CO2 > 50.0 H* POC ABG Base Excess > 30.0 H Potassium 3.0 L Chloride 87 L Carbon Dioxide 46 H* Anion Gap 5.0 L Glucose 150 H Phosphorus 2.4 L Triglycerides 164 H Vancomycin Trough 25.4 H* 05/31/22 06:45 MCHC 29.9 L RDW Plt Count 135 L Immature Gran % (Auto) Immature Gran # Platelet Estimate Decreased A POC pCO2 POC HCO3 POC Total CO2 POC ABG Base Excess Potassium Chloride Carbon Dioxide Anion Gap Glucose Phosphorus Triglycerides Vancomycin Trough Meds: Medications Acetaminophen (Acetaminophen 325 Mg Tablet) 650 mg PO Q6HP PRN; Protocol PRN Reason: Per Pain Protocol/Fever > 101 Last Admin: 06/01/22 10:02 Dose: 650 mg Albuterol Sulfate (Albuterol Sulfate 2.5 Mg/3 Ml Nebulizer) 2.5 mg NEB Q2HP PRN PRN Reason: wheezing Albuterol/Ipratropium (Ipratropium/Albuterol 3 Ml Ampul.Neb) 3 ml NEB Q4HRT [facility] Last Admin: 06/02/22 11:25 Dose: 3 ml Amoxicillin/Clavulanate Potassium (Amoxicillin/Potassium Clav 875 Mg Tablet) [facility] Protocol Stop: 06/04/22 08:01 Last Admin: 06/02/22 08:46 Dose: 875 mg Apixaban (Apixaban 5 Mg Tablet) 5 mg PO BID [facility] Last Admin: 06/02/22 08:46 Dose: 5 mg Atorvastatin Calcium (Atorvastatin 10 Mg Tablet) 10 mg PO DAILY [facility] Last Admin: 06/02/22 08:47 Dose: 10 mg Carvedilol (Carvedilol 6.25 Mg Tablet) 6.25 mg PO BID [facility] Last Admin: 06/02/22 08:47 Dose: 6.25 mg Clonidine HCl (Clonidine Hcl 0.1 Mg Tablet) 0.3 mg PO BID [facility] Last Admin: 06/02/22 08:45 Dose: 0.3 mg Dextrose (Dextrose 50% 50 Ml Vial) 0 ml IV UD PRN PRN Reason: Per Sliding Scale Diagnostic Test (Pha) (Accu-Chek 1 Each Strip) 1 each FS [facility] Last Admin: 06/02/22 11:56 Dose: 1 each Docusate Sodium (Docusate Sodium 100 Mg Capsule) 100 mg PO BID [facility] Last Admin: 06/02/22 08:46 Dose: 100 mg Furosemide (Furosemide 20 Mg Tablet) 20 mg PO BIDD [facility] Gabapentin (Gabapentin 100 Mg Capsule) 100 mg PO BID [facility] Last Admin: 06/02/22 08:46 Dose: 100 mg Glucose (Dextrose 31 Gm Oral.Susp) 15 gm PO PRN PRN PRN Reason: Hypoglycemia Guaifenesin (Guaifenesin/Dextromethorphan Oral [place]) 10 ml PO Q4HP PRN PRN Reason: Cough Hydralazine HCl (Hydralazine 20 Mg/Ml Vial) 20 mg IV Q4-6HP PRN PRN Reason: Hypertension Insulin Human Lispro (Insulin Lispro 1 Unit/0.01 Ml Unit) 0 unit SQ [facility]; Protocol Last Admin: 06/02/22 11:57 Dose: Not Given Labetalol HCl (Labetalol 5 Mg/Ml Ml) 10 mg IV Q10M PRN PRN Reason: Hypertension Lactulose (Lactulose 20 Gm/30 Ml Oral.[place]) 10 gm PO DAILYP PRN PRN Reason: Constipation Last Admin: 05/30/22 08:30 Dose: 10 gm Metoprolol Tartrate (Metoprolol Tartrate 5 Mg/5 Ml Vial) 5 mg IV Q4HP PRN PRN Reason: Tachyarrhythmias Mupirocin (Mupirocin Oint 2% 22gm) 1 dose NARES BID [facility] Last Admin: 06/02/22 09:57 Dose: 1 dose Ondansetron HCl (Ondansetron 4 Mg/2 Ml Vial) 4 mg IV Q4HP PRN; Protocol PRN Reason: Nausea And Vomiting Last Admin: 05/30/22 08:30 Dose: 4 mg Ondansetron HCl (Ondansetron 4 Mg Odt Tablet) 4 mg SL Q4HP PRN PRN Reason: Nausea And Vomiting Last Admin: 05/28/22 23:38 Dose: 4 mg Dapagliflozin [ (Farxiga] 5 Mg Tablet) 1 dose PO QAM [facility] Last Admin: 06/02/22 09:57 Dose: 1 dose Potassium Chloride (Potassium Chloride 20 Meq Tablet) 20 meq PO BIDCC [facility] Last Admin: 06/02/22 08:46 Dose: 20 meq Promethazine HCl (Promethazine 25 Mg Tablet) 25 mg PO Q6HP PRN PRN Reason: Nausea And Vomiting Last Admin: 05/31/22 01:30 Dose: 25 mg Senna (Sennosides 1 Tablet) 2 tab PO HSP PRN PRN Reason: Constipation Sodium Chloride (0.9 % Sodium Chloride 10 Ml Syringe) 10 ml IV Q8 [facility] Last Admin: 06/02/22 05:20 Dose: 10 ml ABG Interpretation ABG results: 05/26/22 05/29/22 05/29/22 22:51 09:26 13:37 ABG Methemoglobin 0.2 L 0.3 L 0.2 L VBG pH 7.38 7.30 L 7.28 L VBG pCO2 64.4 H* 98.0 H* 102.1 H* VBG pO2 70.5 H 81.2 H 79.3 H VBG HCO3 37.4 H 47.2 H* 47.1 H* VBG Total CO2 39.4 H 50.3 H* 50.3 H* VBG O2 Saturation 89.1 H 90.9 H 91.5 H VBG Base Excess 10 H 16 H 15 H 05/29/22 05/29/22 15:07 17:22 ABG Methemoglobin 0.3 L 0.3 L VBG pH 7.30 L 7.32 VBG pCO2 101.9 H* 117.4 H* VBG pO2 58.1 H 39.7 VBG HCO3 48.6 H* 58.7 H* VBG Total CO2 51.7 H* 62.3 H* VBG O2 Saturation 86.6 H 74.0 H VBG Base Excess 17 H 26 H A/P Assessment and plan (1) Acute respiratory failure with hypoxemia: Status: Acute (2) Diabetes mellitus type 2 in obese: Status: Acute (3) COPD (chronic obstructive pulmonary disease): Status: Chronic Qualifiers: COPD type: unspecified COPD Qualified Code(s): J44.9 - Chronic obstructive pulmonary disease, unspecified (4) DM II (diabetes mellitus, type II), controlled: Status: Chronic (5) Acute exacerbation of CHF (congestive heart failure): Status: Acute Qualifiers: Heart failure type: diastolic Qualified Code(s): I50.33 - Acute on chronic diastolic (congestive) heart failure (6) Hypertension: Status: Chronic (7) Permanent atrial fibrillation: Status: Acute (8) Chronic kidney disease (CKD) stage G2/A1, mildly decreased glomerular filtration rate (GFR) between 60-89 mL/min/1.73 square meter and albuminuria creatinine ratio less than 30 mg/g: Status: Acute (9) Hypokalemia: Status: Chronic (10) Hyperlipidemia: Status: Chronic Narrative A/P Narrative: Assessment and Plans: 1. Diastolic CHF with exacerbation: Inpatient med surg Supplemental oxygen therapy, wean down/off as tolerated. Use home oxygen on as needed basis Lasix IV to 20mg PO BID Coreg Lisinopril Pending physical therapy evaluation for placement planning 2. Aspiration pneumonia: Supplemental oxygen therapy, wean down/off as tolerated. Use home oxygen on as needed basis Blood cultures no growth to date Vancomycin stopped, continue Augmentin 3. Permanent atrial fibrillation: [id number] VASc score of 5 Coreg as rate control Eliquis as anticoagulation therapy 4. h/o COPD, stable: Supplemental oxygen therapy, wean down/off as tolerated. Use home oxygen on as needed basis DuoNEB NEB 5. T2DM with diabetic nephropathy CKD II: HgA1c Farxiga Insulin Lispro SSI AC HS Accu Check AC HS Hypoglycemia protocol Diabetic diet Gabapentin 6. Essential HTN: Coreg Clonidine Lasix PO 7. Hypokalemia: Potassium chloride PO replacement as per protocol CMP in the morning to trend serum potassium level Also check serum Mg level and replace as needed 8. Dyslipidemia: Continue statin therapy GI ppx: not currently indicated DVT ppx: Eliquis Code status: Full Prognosis: Stable Disposition: inpatient med surg; pending PT for placement planning Time Spent With Patient Time: Total time spent is greater than 50% in coordination of care (as documented) at patient's floor/unit and/or counseling patient: Total time spent with greater than 50% in coordination of care (as documented) at patient's floor/unit and/or counseling patient:: 35 - 50 minutes
[2022-06-02] MEDS ORDERED: IPRATROPIUM/ALBUTEROL 3 ML AMPUL.NEB NEB PRN (12:11)
[2022-06-02] MEDS: FUROSEMIDE 20 MG TABLET PO SCH (17:02)
[2022-06-02] MEDS: ACETAMINOPHEN 325 MG TABLET PO PRN (18:08)
[2022-06-03] MEDS: ACETAMINOPHEN 325 MG TABLET PO PRN (04:54)
[2022-06-03] MEDS: 0.9 % SODIUM CHLORIDE 10 ML SYRINGE IV SCH (04:55)
[2022-06-03 06:51] LABS: Basophils # (Auto) 0.02 K/mcL (0.00-0.30); Basophils % (Auto) 0.3 % (0.0-2.0); Eosinophils # (Auto) 0.41 K/mcL (0.00-0.70); Eosinophils % (Auto) 5.6 % (0.0-7.0); Hemoglobin 13.1 g/dL (11.2-15.7); Lymphocytes % (Auto) 24.6 % (15.5-49.0); Mean Cell Volume 93.6 fL (80.0-100.0); Mean Corpuscular HGB Conc 29.8 g/dL (31.0-36.0); Mean Platelet Volume 10.3 fL (8.8-12.5); Monocytes # (Auto) 0.68 K/mcL (0.10-0.90); Monocytes % (Auto) 9.3 % (1.0-12.0); Neutrophils % (Auto) 59.8 % (38.0-78.0); Platelet Count 138 K/mcL (140-440); Red Cell Distribution Width 14.7 % (11.5-14.5); WBC 7.3 K/mcL (4.5-11.0)
[2022-06-03 06:54] LABS: ALT/SGPT < 5 U/L (<40); AST/SGOT 6 U/L (<32); Alkaline Phosphatase 55 U/L (39-117); Bilirubin,Total 0.5 mg/dL (0.1-1.0); Blood Urea Nitrogen 12 mg/dL (8-23); Calcium 8.5 mg/dL (8.6-10.4); Carbon Dioxide 32 mmol/L (22-30); Chloride 96 mmol/L (96-108); Globulin 3.1 gm/dL (2.2-3.7); Glomerular Filtration Rate 75; Glucose 157 mg/dL (70-105)
[2022-06-03] MEDS: INSULIN LISPRO 1 UNIT/0.01 ML UNIT SQ SCH ×2 (07:38→11:19)
[2022-06-03] MEDS: AMOXICILLIN/POTASSIUM CLAV 875 MG TABLET PO SCH (07:53)
[2022-06-03] MEDS: ATORVASTATIN 10 MG TABLET PO SCH (07:54)
[2022-06-03] MEDS: POTASSIUM CHLORIDE 20 MEQ TABLET PO SCH (07:54)
[2022-06-03] MEDS: cloNIDine HCL 0.1 MG TABLET PO SCH (07:54)
[2022-06-03] MEDS: DOCUSATE SODIUM 100 MG CAPSULE PO SCH (07:54)
[2022-06-03] MEDS: GABAPENTIN 100 MG CAPSULE PO SCH (07:54)
[2022-06-03] MEDS: APIXABAN 5 MG TABLET PO SCH (07:54)
[2022-06-03] MEDS: FUROSEMIDE 20 MG TABLET PO SCH (07:55)
[2022-06-03] MEDS: CARVEDILOL 6.25 MG TABLET PO SCH (07:55)
[2022-06-03] MEDS: MUPIROCIN OINT 2% 22GM NARES SCH (07:56)
[2022-06-03] MEDS ORDERED: LISINOPRIL 2.5 MG TABLET PO SCH (09:00)
--- NOTE | 2022-06-03 11:02 | Discharge Summary ---
Discharge Provider Provider IMPORTANT FOLLOW-UP INFORMATION FOR PCP: Patient information: Note initiated : 06/03/22 at 10:58 am Service Date, if different from initiated Date: [] Patient: Cony Baig 71 y/o F admitted on 05/26/22 for Sob-Hypoxia, Hypercapnic Respiratory Failure. Chief Complaint: [] Date of admission: 05/26/22 21:47 Discharge date: 06/03/22 Primary care physician: ALESIA Rodriguez Attending physician on admission: Garo Grissom Consults: 05/26/22 Consult to Physician [CONS] Stat Comment: Consulting Provider: Garo Grissom Reason For Exam: Physician to Consult 06/01/22 08:46 Consult to Physician [CONS] Routine Comment: snf referral Consulting Provider: Brittni Reason For Exam: Physician to Consult Attending physician on discharge: Walter Covarrubias Pui COURSE Hospital Course Hospital course: Ms. Baig is a 71-year-old female with a history of hypertension, type 2 diabetes mellitus, chronic diastolic heart failure, restrictive lung disease, chronic hypoxia and intermittent compliance with supplemental oxygen, obesity who was recently treated for pneumonia with cefdinir and azithromycin presented to the emergency department for shortness of breath. In the ED, the patient had a high-grade temperature of 99.0, her respiratory rate in the mid teens to upper 20s. The patient had a oxygen requirement of 4 L/min nasal cannula. She was hemodynamically stable with normal pulse rate. Patient had a normal WBC, normal platelet count, chemistry panel was notable for a severely elevated CO2 level of 43. Venous blood gas showed a pH of 7.43 and a PCO2 of 70.3, venous blood gas lactic acid was normal. Chest x-ray showed moderate bibasilar infiltrates suspicious for aspiration pneumonia. Patient was given ceftriaxone and IV azithromycin. Hospital medicine was consulted for admission. 05/27 Oxygen supplementation weaned down to 3 L/min, the patient did not tolerate BiPAP overnight because it made her anxious. Repeat VBG PCO2 improved from 70.3 to 64.4. MRSA nasal PCR was positive. CT chest without contrast showed a moderate left lower lobe pneumonia and small left pleural effusion, moderate to large right pleural effusion resulting in compressive atelectasis of the right lower lobe, pulmonary vascular congestion findings consistent with heart failure. Transthoracic echocardiogram report notable for a moderate concentric left ventricular hypertrophy, LVEF of 50 to 55%, grade 2 diastolic dysfunction, mildly reduced right ventricular systolic function. Continuing vancomycin IV per pharmacy and levofloxacin for pneumonia. Minimal urine output documented, increase Lasix from 40 mg IV to 60 mg IV twice daily. Respiratory virus panel and SARS-CoV-2 PCR negative. 05/28 Vitals stable overnight, bicarb level increasing. Acetazolamide 500 mg IV given once. Continues on Lasix IV however the patient's IV infiltrated, the patient did not allow for another IV to be placed so transition to oral Lasix. 1 dose of metolazone 5 mg with evening Lasix dose. Started linezolid and p.o. levofloxacin for pneumonia, discontinued IV vancomycin and IV levofloxacin. 05/29 Patient was very drowsy this morning, VBG showed a PCO2 of 98, venous pH of 7.3. Patient does not tolerate BiPAP, her mental status slowly improved after she woke up. Suspect the patient has severe underlying sleep apnea. We will repeat VBG in a couple hours. CPAP ordered for bedtime, unclear if the patient will tolerate CPAP. 05/30 Patient tolerated BiPAP most of the night, repeat ABG this morning showed an improvement in PCO2, pH normal. Potassium low, replaced. Repeat chest x-ray yesterday evening showed an interval worsening with moderate consolidated infiltrates in both mid and lower lungs. Transition antibiotics to IV vancomycin and Zosyn. We will hold off on diuretics today given the elevation in serum bicarbonate and risk of loop diuretics causing contraction alkalosis. Continue BiPAP today. 05/31-patient seen in room. Appears lethargic but overall doing well. Overnight on BiPAP. Repeat ABG today. Previous ABG PCO2 94/bicarb down from 49-46, remains alkalotic, continue Diamox/low-dose diuresis, continue nutrition support/physical therapies 06/01-patient seen in room. No overnight events. Feels a lot better this morning. Down to 2 L oxygen. Continue physical therapy. Anticipate SNF placement in the next 24 to 48 hours, continue physical therapy, continue gentle diuresis, additional dose of Diamox for contraction alkalosis. Net -4000 cc fluid balance since admission. 06/02: Patient is currently on 2 L/min of nasal cannula oxygen's. Otherwise there was no other major overnight events. She is experiencing improving degree of shortness of breath. She is still complaining of nonproductive cough. She denies any chest pain. She denies any palpitations. She denies any wheezing. She denies any fever, chills, or diaphoresis. She denies any other pain or discomfort. Switch Lasix from IV to 20 Mg p.o. twice daily. Continue Coreg as part of the treatment for heart failure management. Continue supplemental oxygen therapy, wean down or off as tolerated. Patient uses oxygen as needed at home. Continue Augmentin for aspiration pneumonia. Continue Coreg and Eliquis for atrial fibrillation's rate controlled and anticoagulations, respectively. Pending physical therapy evaluations for placement planning. 06/03: Reached clinical stability, discharged to SNF today. All questions were answered prior to patient being physically discharged. Discharge diagnosis: Aspiration pneumonia, diastolic CHF exacerbation, atrial fibrillation. Time Spent with Patient Time attestation: Total time spent providing and/or coordinating discharge services: Time spent: Greater than 30 minutes EXAM Constitutional Vitals: Temp Pulse Resp BP Pulse Ox O2 Del Method O2 Flow Rate 37.0 C 72 16 146/82 97 2 06/03/22 08:00 06/03/22 08:00 06/03/22 08:00 06/03/22 08:00 06/03/22 08:00 06/03/22 08:00 06/03/22 08:00 General appearance: cooperative and no acute distress Head Head exam: Present atraumatic and normocephalic Eye Eye exam: Present EOMI and PERRL ENT ENT exam: Present mucous membranes moist, normal exam and normal external ear exam Additional comments: Nasal cannula in place Neck Neck exam: Present normal inspection; Absent lymphadenopathy, tenderness or thyromegaly Respiratory Respiratory exam: Absent accessory muscle use, respiratory distress or wheezes Cardiovascular Cardiovascular exam: Present irregular rhythm; Absent JVD GI/Abdominal GI/Abdominal exam: Present normal bowel sounds and soft; Absent organomegaly or tenderness Extremities Exam Extremities exam: Present full ROM, normal capillary refill and normal inspection; Absent tenderness Neurological Exam Neurological exam: Present alert, CN II-XII intact and oriented X3; Absent motor sensory deficit Psychiatric Psychiatric exam: Present normal affect and normal mood; Absent anxious or depressed Skin Skin exam: Present dry and intact Discharge Data Data Completed and Pending Labs on day of discharge: Labs from last 24 hours 06/03/22 06/03/22 05:35 05:35 WBC 7.3 RBC 4.70 Hgb 13.1 Hct 44.0 MCV 93.6 MCH 27.9 MCHC 29.8 L RDW 14.7 H Plt Count 138 L MPV 10.3 Immature Gran % (Auto) 0.4 Neut % (Auto) 59.8 Lymph % (Auto) 24.6 [place] % (Auto) 9.3 Eos % (Auto) 5.6 Baso % (Auto) 0.3 Lymph # (Auto) 1.80 [place] # (Auto) 0.68 Eos # (Auto) 0.41 Baso # (Auto) 0.02 Immature Gran # 0.03 Absolute Neutrophils 4.38 Sodium 138 Potassium 3.5 Chloride 96 Carbon Dioxide 32 H Anion Gap 10.0 BUN 12 Creatinine 0.8 GFR Calculation 75 Glucose 157 H Calcium 8.5 L Total Bilirubin 0.5 AST 6 ALT < 5 Alkaline Phosphatase 55 Total Protein 6.1 Albumin 3.0 L Globulin 3.1 Albumin/Globulin Ratio 1.0 Discharge Plan Patient/Caregiver Discharge Instructions Activity: increase activity as tolerated Diet: Consistent Carbohydrate Prescriptions: New carvedilol 6.25 mg Tablet 6.25 mg PO BID 30 Days Qty: 60 0RF amoxicillin-pot clavulanate 875-125 mg Tablet 875 mg PO BIDCC 2 Days Qty: 4 0RF Eliquis 5 mg Tablet 5 mg PO BID Qty: 30 0RF dextromethorphan-guaifenesin [Diabetic Tussin DM] 10-100 mg/5 mL Liquid 10 ml PO Q4HP PRN (Reason: Cough) Qty: 500 0RF clonidine HCl 0.1 mg Tablet 0.3 mg PO BID 30 Days Qty: 60 0RF potassium chloride [Klor-Con M20] 20 mEq Tablet,Er Particles/Crystals 20 meq PO DAILY 30 Days Qty: 30 0RF furosemide 20 mg Tablet 20 mg PO BIDD 30 Days Qty: 60 0RF lisinopril 2.5 mg Tablet 2.5 mg PO DAILY 30 Days Qty: 30 0RF Continued Farxiga 5 mg tablet 5 mg PO QAM clonidine HCl 0.3 MG tablet 0.3 mg PO BID lovastatin 40 mg tablet 80 mg PO DAILY Serevent Diskus 50 mcg/dose blister with device 1 inh INHALATION BID Label Comments: INHALE 1 PUFF BY MOUTH TWICE DAILY albuterol sulfate [Ventolin HFA] 90 mcg/actuation HFA aerosol inhaler 1 inh INHALATION QIDP PRN (Reason: Shortness Of Breath) Label Comments: INHALE 1 PUFF BY MOUTH 4 TIMES DAILY NEEDED gabapentin 100 mg Capsule 100 mg PO BID 30 Days Qty: 60 0RF Discontinued carvedilol 25 mg tablet 25 mg PO BID Label Comments: TAKE 1 TABLET BY MOUTH TWICE DAILY FOR 90 DAYS furosemide 40 MG tablet 40 mg PO DAILY Qty: 30 0RF cefdinir 300 mg capsule 300 mg PO BID Qty: 20 0RF azithromycin 250 mg tablet 250 mg PO ONCE Qty: 4 0RF Follow Up Plan Follow up with: Roxana Oliveira ARNP [Primary Care Provider] - Patient Disposition: Xfer SNF Prognosis: Fair Rehab Potential: Good I certify that the patient requires SNF services: Yes Overall status at discharge: patient is progressing back to baseline Discharge Orders: Discharge Order (Routine); Ordered 06/03/22 Ordered By: Walter Hess
== END 2022-06-03 12:40 | DRG 177 ==
LOC: ED 15:37 → ICU 21:47 → MEDSUR 06-01 14:21
PROVIDERS: ADMIT Internal Medicine; ATTEND Internal Medicine

== ENCOUNTER 2023-04-20 18:46 | Inpatient (IN) ==
[2023-04-20] MEDS ORDERED: FUROSEMIDE 100 MG/10 ML VIAL IV ONE (18:55)
[2023-04-20] MEDS ORDERED: FUROSEMIDE 40 MG/4 ML VIAL IV ONE (19:00)
[2023-04-20 19:08] LABS: POC Calcium, Ionized 1.09 (1.16-1.32); POC Creatinine 0.8 (0.6-1.2); POC Potassium 3.9 (3.3-5.1)
[2023-04-20 19:33] LABS: Basophils # (Auto) 0.02 K/mcL (0.00-0.30); Basophils % (Auto) 0.3 % (0.0-2.0); Eosinophils # (Auto) 0.19 K/mcL (0.00-0.70); Eosinophils % (Auto) 2.7 % (0.0-7.0); Hematocrit 43.4 % (34.1-44.9); Hemoglobin 13.1 g/dL (11.2-15.7); Lymphocytes % (Auto) 28.9 % (15.5-49.0); Mean Corpuscular HGB Conc 30.2 g/dL (31.0-36.0); Mean Platelet Volume 11.1 fL (8.8-12.5); Monocytes # (Auto) 0.59 K/mcL (0.10-0.90); Monocytes % (Auto) 8.5 % (1.0-12.0); Neutrophils % (Auto) 59.5 % (38.0-78.0); Platelet Count 155 K/mcL (140-440); RBC 4.57 M/mcL (3.59-5.38); Red Cell Distribution Width 15.9 % (11.5-14.5); WBC 6.9 K/mcL (4.5-11.0)
[2023-04-20] MEDS ORDERED: DEXTROSE 50% 50 ML VIAL IV PRN (22:35)
[2023-04-20] MEDS ORDERED: LORazepam 2 MG/ML VIAL IV PRN (22:35)
[2023-04-20] MEDS ORDERED: ONDANSETRON 4 MG/2 ML VIAL IV PRN (22:35)
[2023-04-20] MEDS ORDERED: diphenhydrAMINE 25 MG CAPSULE PO PRN (22:35)
[2023-04-20] MEDS ORDERED: DEXTROSE 31 GM ORAL.SUSP PO PRN (22:35)
[2023-04-20] MEDS: 0.9 % SODIUM CHLORIDE 10 ML SYRINGE IV SCH (22:56)
[2023-04-21] MEDS: IPRATROPIUM/ALBUTEROL 3 ML AMPUL.NEB NEB PRN ×2 (01:16→08:54)
[2023-04-21 01:35] LABS: Hemoglobin A1C 6.3 % Hgb (4.0-6.0)
[2023-04-21 01:49] LABS: ABG Methemoglobin 0.2 % (0.4-1.5); VBG Base Excess 12 (-2-3); VBG HCO3 39.9 mmol/L (24.0-28.0); VBG Oxygen Saturation 80.6 % (40.0-70.0); VBG PCO2 65.2 mmHg (41.0-51.0); VBG PH 7.41 U (7.32-7.42); VBG PO2 50.3 mmHg (25.0-40.0); VBG Total CO2 41.9 mmol/L (25.0-29.0)
[2023-04-21] MEDS: 0.9 % SODIUM CHLORIDE 10 ML SYRINGE IV SCH ×3 (05:45→19:25)
[2023-04-21 06:16] LABS: ABG Methemoglobin 0.2 % (0.4-1.5); Total Hemoglobin 14.4 gm/Dl (12.0-15.0); VBG Base Excess 15 (-2-3); VBG HCO3 45.4 mmol/L (24.0-28.0); VBG Oxygen Saturation 92.3 % (40.0-70.0); VBG PCO2 86.9 mmHg (41.0-51.0); VBG PH 7.34 U (7.32-7.42); VBG PO2 167.6 mmHg (25.0-40.0); VBG Total CO2 48.1 mmol/L (25.0-29.0)
[2023-04-21] MEDS ORDERED: guaiFENesin/DEXTROMETHORPHAN 5ML UD CUP PO PRN (06:33)
[2023-04-21 07:05] LABS: Basophils # (Auto) 0.02 K/mcL (0.00-0.30); Basophils % (Auto) 0.3 % (0.0-2.0); Eosinophils # (Auto) 0.24 K/mcL (0.00-0.70); Eosinophils % (Auto) 4.1 % (0.0-7.0); Hematocrit 44.3 % (34.1-44.9); Lymphocytes # (Auto) 2.03 K/mcL (1.50-4.80); Lymphocytes % (Auto) 34.5 % (15.5-49.0); Mean Cell Volume 96.5 fL (80.0-100.0); Mean Corpuscular HGB Conc 29.3 g/dL (31.0-36.0); Mean Platelet Volume 10.6 fL (8.8-12.5); Monocytes # (Auto) 0.68 K/mcL (0.10-0.90); Monocytes % (Auto) 11.5 % (1.0-12.0); Neutrophils % (Auto) 49.3 % (38.0-78.0); Platelet Count 157 K/mcL (140-440); RBC 4.59 M/mcL (3.59-5.38); Red Cell Distribution Width 16.2 % (11.5-14.5); WBC 5.9 K/mcL (4.5-11.0)
[2023-04-21] MEDS ORDERED: CARVEDILOL 12.5 MG TABLET PO SCH ×2 (08:00→17:30)
[2023-04-21 08:18] LABS: ALT/SGPT 5 U/L (<40); AST/SGOT 11 U/L (<32); Albumin 3.5 gm/dL (3.2-5.2); Albumin/Globulin Ratio 1.1 (1.0-2.3); Alkaline Phosphatase 53 U/L (39-117); Bilirubin,Total 0.6 mg/dL (0.1-1.0); Blood Urea Nitrogen 12 mg/dL (8-23); Calcium 8.8 mg/dL (8.6-10.4); Carbon Dioxide 37 mmol/L (22-30); Chloride 91 mmol/L (96-108); Globulin 3.1 gm/dL (2.2-3.7); Glomerular Filtration Rate 88; Glucose 100 mg/dL (70-105)
[2023-04-21] MEDS: PANTOPRAZOLE 40 MG VIAL IV SCH (10:27)
[2023-04-21] MEDS: FUROSEMIDE 40 MG/4 ML VIAL IV SCH ×2 (10:27→17:13)
[2023-04-21] MEDS: GABAPENTIN 100 MG CAPSULE PO SCH ×2 (11:31→20:18)
[2023-04-21] MEDS: AMOXICILLIN/POTASSIUM CLAV 875 MG TABLET PO SCH ×2 (11:32→20:17)
[2023-04-21] MEDS: APIXABAN 5 MG TABLET PO SCH ×2 (11:33→20:18)
[2023-04-21] MEDS: cloNIDine HCL 0.1 MG TABLET PO SCH ×2 (11:33→20:18)
[2023-04-21] MEDS: LISINOPRIL 5 MG TABLET PO SCH (11:34)
[2023-04-21] MEDS: CARVEDILOL 12.5 MG TABLET PO SCH ×2 (11:35→17:17)
[2023-04-21] MEDS: DOCUSATE SODIUM 100 MG CAPSULE PO SCH ×2 (11:35→20:18)
[2023-04-21] MEDS: SENNOSIDES 1 TABLET PO SCH (11:35)
[2023-04-21] MEDS: INSULIN LISPRO 1 UNIT/0.01 ML UNIT SQ SCH ×4 (11:39→20:22)
[2023-04-21] MEDS: Diclofenac Sodium 1 % gel TOPICAL SCH ×4 (11:40→20:40)
[2023-04-21] MEDS: Budesonide-Glycopyr-Formoterol [Breztri Aerosphere] INH SCH ×2 (11:41→20:34)
[2023-04-21] MEDS: ALBUTEROL SULFATE 60 PUFF INHALER INH PRN ×2 (11:42→20:35)
[2023-04-21] MEDS: ACETAMINOPHEN 325 MG TABLET PO PRN (20:18)
[2023-04-22] MEDS: 0.9 % SODIUM CHLORIDE 10 ML SYRINGE IV SCH ×4 (00:15→20:59)
[2023-04-22 06:50] LABS: Basophils # (Auto) 0.02 K/mcL (0.00-0.30); Basophils % (Auto) 0.4 % (0.0-2.0); Eosinophils # (Auto) 0.21 K/mcL (0.00-0.70); Eosinophils % (Auto) 4.1 % (0.0-7.0); Hematocrit 43.2 % (34.1-44.9); Hemoglobin 12.6 g/dL (11.2-15.7); Lymphocytes # (Auto) 1.75 K/mcL (1.50-4.80); Lymphocytes % (Auto) 34.4 % (15.5-49.0); Mean Cell Volume 97.3 fL (80.0-100.0); Mean Corpuscular HGB Conc 29.2 g/dL (31.0-36.0); Mean Platelet Volume 10.9 fL (8.8-12.5); Monocytes # (Auto) 0.59 K/mcL (0.10-0.90); Monocytes % (Auto) 11.6 % (1.0-12.0); Neutrophils % (Auto) 49.3 % (38.0-78.0); Platelet Count 156 K/mcL (140-440); RBC 4.44 M/mcL (3.59-5.38); Red Cell Distribution Width 16.3 % (11.5-14.5); WBC 5.1 K/mcL (4.5-11.0)
[2023-04-22 06:51] LABS: ABG Methemoglobin 0.4 % (0.4-1.5); Total Hemoglobin 13.8 gm/Dl (12.0-15.0); VBG Base Excess 15 (-2-3); VBG HCO3 42.6 mmol/L (24.0-28.0); VBG Oxygen Saturation 90.1 % (40.0-70.0); VBG PCO2 63.5 mmHg (41.0-51.0); VBG PH 7.44 U (7.32-7.42); VBG PO2 135.3 mmHg (25.0-40.0); VBG Total CO2 44.5 mmol/L (25.0-29.0)
[2023-04-22 07:19] LABS: ALT/SGPT 6 U/L (<40); AST/SGOT 10 U/L (<32); Albumin 3.2 gm/dL (3.2-5.2); Alkaline Phosphatase 52 U/L (39-117); Bilirubin,Total 0.4 mg/dL (0.1-1.0); Blood Urea Nitrogen 13 mg/dL (8-23); Calcium 8.5 mg/dL (8.6-10.4); Carbon Dioxide 44 mmol/L (22-30); Chloride 89 mmol/L (96-108); Globulin 3.1 gm/dL (2.2-3.7); Glomerular Filtration Rate 88; Glucose 147 mg/dL (70-105)
[2023-04-22] MEDS: INSULIN LISPRO 1 UNIT/0.01 ML UNIT SQ SCH ×4 (07:29→20:54)
[2023-04-22] MEDS: FUROSEMIDE 40 MG/4 ML VIAL IV SCH (08:02)
[2023-04-22] MEDS: PANTOPRAZOLE 40 MG VIAL IV SCH (08:02)
[2023-04-22] MEDS: CARVEDILOL 12.5 MG TABLET PO SCH ×2 (08:02→17:50)
[2023-04-22] MEDS: DOCUSATE SODIUM 100 MG CAPSULE PO SCH ×2 (09:55→19:59)
[2023-04-22] MEDS: SENNOSIDES 1 TABLET PO SCH (09:55)
[2023-04-22] MEDS: ALBUTEROL SULFATE 60 PUFF INHALER INH PRN ×2 (09:55→21:21)
[2023-04-22] MEDS: GABAPENTIN 100 MG CAPSULE PO SCH ×2 (09:55→20:57)
[2023-04-22] MEDS: APIXABAN 5 MG TABLET PO SCH ×2 (09:55→20:57)
[2023-04-22] MEDS: cloNIDine HCL 0.1 MG TABLET PO SCH ×2 (09:55→19:58)
[2023-04-22] MEDS: LISINOPRIL 5 MG TABLET PO SCH (09:55)
[2023-04-22] MEDS: Budesonide-Glycopyr-Formoterol [Breztri Aerosphere] INH SCH ×2 (10:04→20:58)
[2023-04-22] MEDS: Diclofenac Sodium 1 % gel TOPICAL SCH ×4 (10:05→20:59)
[2023-04-22] MEDS: FUROSEMIDE 40 MG TABLET PO SCH (15:59)
[2023-04-22] MEDS: ACETAMINOPHEN 325 MG TABLET PO PRN (19:43)
[2023-04-23] MEDS: 0.9 % SODIUM CHLORIDE 10 ML SYRINGE IV SCH ×3 (05:09→20:36)
[2023-04-23 06:33] LABS: Basophils # (Auto) 0.02 K/mcL (0.00-0.30); Basophils % (Auto) 0.4 % (0.0-2.0); Eosinophils # (Auto) 0.24 K/mcL (0.00-0.70); Eosinophils % (Auto) 4.3 % (0.0-7.0); Hematocrit 42.8 % (34.1-44.9); Hemoglobin 12.4 g/dL (11.2-15.7); Lymphocytes % (Auto) 32.4 % (15.5-49.0); Mean Cell Volume 97.7 fL (80.0-100.0); Mean Platelet Volume 10.6 fL (8.8-12.5); Monocytes % (Auto) 10.8 % (1.0-12.0); Neutrophils % (Auto) 51.7 % (38.0-78.0); Platelet Count 167 K/mcL (140-440); RBC 4.38 M/mcL (3.59-5.38); Red Cell Distribution Width 16.2 % (11.5-14.5); WBC 5.6 K/mcL (4.5-11.0)
[2023-04-23 06:55] LABS: ABG Methemoglobin 0.3 % (0.4-1.5); ALT/SGPT < 5 U/L (<40); AST/SGOT 8 U/L (<32); Albumin 3.4 gm/dL (3.2-5.2); Albumin/Globulin Ratio 1.1 (1.0-2.3); Alkaline Phosphatase 51 U/L (39-117); Bilirubin,Total 0.5 mg/dL (0.1-1.0); Blood Urea Nitrogen 11 mg/dL (8-23); Calcium 8.6 mg/dL (8.6-10.4); Carbon Dioxide 43 mmol/L (22-30); Chloride 90 mmol/L (96-108); Glomerular Filtration Rate 88; Glucose 118 mg/dL (70-105); Total Hemoglobin 13.7 gm/Dl (12.0-15.0); VBG Base Excess 16 (-2-3); VBG HCO3 43.5 mmol/L (24.0-28.0); VBG PCO2 67.5 mmHg (41.0-51.0); VBG PH 7.43 U (7.32-7.42); VBG PO2 133.3 mmHg (25.0-40.0); VBG Total CO2 45.6 mmol/L (25.0-29.0)
[2023-04-23] MEDS: CARVEDILOL 12.5 MG TABLET PO SCH ×3 (06:58→20:37)
[2023-04-23] MEDS: DOCUSATE SODIUM 100 MG CAPSULE PO SCH ×3 (07:00→20:36)
[2023-04-23] MEDS: Diclofenac Sodium 1 % gel TOPICAL SCH ×4 (09:05→20:36)
[2023-04-23] MEDS: Budesonide-Glycopyr-Formoterol [Breztri Aerosphere] INH SCH ×2 (09:18→22:00)
[2023-04-23] MEDS: PANTOPRAZOLE 40 MG VIAL IV SCH (09:18)
[2023-04-23] MEDS: ALBUTEROL SULFATE 60 PUFF INHALER INH PRN ×2 (09:18→22:00)
[2023-04-23] MEDS: cloNIDine HCL 0.1 MG TABLET PO SCH ×2 (09:18→20:35)
[2023-04-23] MEDS: GABAPENTIN 100 MG CAPSULE PO SCH ×2 (09:19→20:35)
[2023-04-23] MEDS: LISINOPRIL 5 MG TABLET PO SCH (09:19)
[2023-04-23] MEDS: FUROSEMIDE 40 MG TABLET PO SCH (09:19)
[2023-04-23] MEDS: SENNOSIDES 1 TABLET PO SCH (09:19)
[2023-04-23] MEDS: ACETAMINOPHEN 325 MG TABLET PO PRN ×2 (09:19→18:10)
[2023-04-23] MEDS: APIXABAN 5 MG TABLET PO SCH ×2 (09:19→20:35)
[2023-04-23] MEDS: INSULIN LISPRO 1 UNIT/0.01 ML UNIT SQ SCH ×4 (09:20→20:36)
[2023-04-23] MEDS ORDERED: acetaZOLAMIDE SOD 500 MG VIAL IV ONE (16:00)
[2023-04-24] MEDS: 0.9 % SODIUM CHLORIDE 10 ML SYRINGE IV SCH ×3 (05:16→20:04)
[2023-04-24 06:30] LABS: ABG Methemoglobin 0.2 % (0.4-1.5); Total Hemoglobin 13.5 gm/Dl (12.0-15.0); VBG Base Excess 14 (-2-3); VBG HCO3 42.7 mmol/L (24.0-28.0); VBG Oxygen Saturation 90.5 % (40.0-70.0); VBG PCO2 77.8 mmHg (41.0-51.0); VBG PH 7.36 U (7.32-7.42); VBG PO2 107.4 mmHg (25.0-40.0); VBG Total CO2 45.1 mmol/L (25.0-29.0)
[2023-04-24] MEDS: INSULIN LISPRO 1 UNIT/0.01 ML UNIT SQ SCH ×4 (07:37→20:07)
[2023-04-24 08:41] LABS: ALT/SGPT 7 U/L (<40); AST/SGOT 11 U/L (<32); Albumin 3.1 gm/dL (3.2-5.2); Alkaline Phosphatase 51 U/L (39-117); Bilirubin,Direct < 0.2 mg/dL (0-0.3); Bilirubin,Total 0.4 mg/dL (0.1-1.0); Blood Urea Nitrogen 11 mg/dL (8-23); Calcium 8.8 mg/dL (8.6-10.4); Carbon Dioxide 46 mmol/L (22-30); Chloride 91 mmol/L (96-108); Globulin 3.1 gm/dL (2.2-3.7); Glomerular Filtration Rate 88; Glucose 104 mg/dL (70-105); Lactate Dehydrogenase 165 U/L (135-225); Phosphorous 4.2 mg/dL (2.5-4.5); Triglycerides 119 mg/dL (<150); Uric Acid 7.5 mg/dL (2.5-8.0)
[2023-04-24] MEDS: cloNIDine HCL 0.1 MG TABLET PO SCH ×2 (08:55→20:07)
[2023-04-24] MEDS: DOCUSATE SODIUM 100 MG CAPSULE PO SCH ×2 (08:55→20:07)
[2023-04-24] MEDS: CARVEDILOL 12.5 MG TABLET PO SCH ×2 (08:55→16:48)
[2023-04-24] MEDS: APIXABAN 5 MG TABLET PO SCH ×2 (08:56→20:06)
[2023-04-24] MEDS: LISINOPRIL 5 MG TABLET PO SCH (08:56)
[2023-04-24] MEDS: SENNOSIDES 1 TABLET PO SCH (08:56)
[2023-04-24] MEDS: PANTOPRAZOLE 40 MG TABLET PO SCH (08:56)
[2023-04-24] MEDS: GABAPENTIN 100 MG CAPSULE PO SCH ×2 (08:56→20:07)
[2023-04-24] MEDS: ACETAMINOPHEN 325 MG TABLET PO PRN (08:57)
[2023-04-24] MEDS: Diclofenac Sodium 1 % gel TOPICAL SCH ×4 (08:59→20:07)
[2023-04-24] MEDS: PANTOPRAZOLE 40 MG VIAL IV SCH (08:59)
[2023-04-24] MEDS ORDERED: acetaZOLAMIDE SOD 500 MG VIAL IV SCH (09:00)
[2023-04-24] MEDS: Budesonide-Glycopyr-Formoterol [Breztri Aerosphere] INH SCH ×2 (09:08→20:10)
[2023-04-24] MEDS: ALBUTEROL SULFATE 60 PUFF INHALER INH PRN ×2 (09:08→20:10)
[2023-04-24] MEDS ORDERED: METOPROLOL TARTRATE 5 MG/5 ML VIAL IV PRN (16:43)
[2023-04-25] MEDS: ACETAMINOPHEN 325 MG TABLET PO PRN (02:14)
[2023-04-25] MEDS: 0.9 % SODIUM CHLORIDE 10 ML SYRINGE IV SCH ×3 (05:30→21:19)
[2023-04-25] MEDS: PANTOPRAZOLE 40 MG TABLET PO SCH (07:04)
[2023-04-25] MEDS: INSULIN LISPRO 1 UNIT/0.01 ML UNIT SQ SCH ×4 (07:08→21:23)
[2023-04-25 08:48] LABS: ALT/SGPT < 5 U/L (<40); AST/SGOT 8 U/L (<32); Albumin 3.2 gm/dL (3.2-5.2); Albumin/Globulin Ratio 1.1 (1.0-2.3); Alkaline Phosphatase 49 U/L (39-117); Bilirubin,Direct < 0.2 mg/dL (0-0.3); Bilirubin,Total 0.5 mg/dL (0.1-1.0); Blood Urea Nitrogen 10 mg/dL (8-23); Carbon Dioxide 42 mmol/L (22-30); Chloride 92 mmol/L (96-108); Globulin 2.9 gm/dL (2.2-3.7); Glomerular Filtration Rate 88; Glucose 99 mg/dL (70-105); Lactate Dehydrogenase 138 U/L (135-225); Phosphorous 3.7 mg/dL (2.5-4.5); Triglycerides 104 mg/dL (<150); Uric Acid 7.2 mg/dL (2.5-8.0)
[2023-04-25] MEDS ORDERED: FUROSEMIDE 40 MG TABLET PO SCH ×2 (09:00)
[2023-04-25] MEDS: Budesonide-Glycopyr-Formoterol [Breztri Aerosphere] INH SCH ×2 (09:03→21:18)
[2023-04-25] MEDS: ALBUTEROL SULFATE 60 PUFF INHALER INH PRN ×2 (09:03→21:18)
[2023-04-25] MEDS: SENNOSIDES 1 TABLET PO SCH (09:04)
[2023-04-25] MEDS: LISINOPRIL 5 MG TABLET PO SCH (09:05)
[2023-04-25] MEDS: GABAPENTIN 100 MG CAPSULE PO SCH ×2 (09:05→21:17)
[2023-04-25] MEDS: cloNIDine HCL 0.1 MG TABLET PO SCH ×2 (09:05→21:15)
[2023-04-25] MEDS ORDERED: HYDROCHLOROTHIAZIDE 25 MG TABLET PO ONE (09:06)
[2023-04-25] MEDS ORDERED: acetaZOLAMIDE SOD 500 MG VIAL IV ONE (09:06)
[2023-04-25] MEDS: CARVEDILOL 12.5 MG TABLET PO SCH ×2 (09:07→17:07)
[2023-04-25] MEDS: DOCUSATE SODIUM 100 MG CAPSULE PO SCH ×2 (09:08→21:18)
[2023-04-25] MEDS: APIXABAN 5 MG TABLET PO SCH ×2 (09:08→21:17)
[2023-04-25] MEDS: Diclofenac Sodium 1 % gel TOPICAL SCH ×4 (09:08→21:24)
[2023-04-26] MEDS: ACETAMINOPHEN 325 MG TABLET PO PRN ×2 (00:16→11:09)
[2023-04-26] MEDS: 0.9 % SODIUM CHLORIDE 10 ML SYRINGE IV SCH ×3 (05:37→20:52)
[2023-04-26 07:20] LABS: ALT/SGPT < 5 U/L (<40); AST/SGOT 7 U/L (<32); Albumin/Globulin Ratio 0.9 (1.0-2.3); Alkaline Phosphatase 51 U/L (39-117); Bilirubin,Direct < 0.2 mg/dL (0-0.3); Bilirubin,Total 0.4 mg/dL (0.1-1.0); Blood Urea Nitrogen 10 mg/dL (8-23); Carbon Dioxide 43 mmol/L (22-30); Chloride 94 mmol/L (96-108); Globulin 3.2 gm/dL (2.2-3.7); Glomerular Filtration Rate 88; Glucose 109 mg/dL (70-105); Lactate Dehydrogenase 116 U/L (135-225); Phosphorous 3.6 mg/dL (2.5-4.5); Triglycerides 110 mg/dL (<150); Uric Acid 7.7 mg/dL (2.5-8.0)
[2023-04-26] MEDS ORDERED: POTASSIUM CHLORIDE 20 MEQ TABLET PO ONE ×2 (08:00→11:30)
[2023-04-26] MEDS ORDERED: ALBUMIN HUMAN 12.5 GM/50 ML VIAL IV ONE (08:04)
[2023-04-26] MEDS ORDERED: HYDROCHLOROTHIAZIDE 25 MG TABLET PO ONE ×2 (08:04→11:30)
[2023-04-26] MEDS ORDERED: FUROSEMIDE 40 MG/4 ML VIAL IV ONE ×2 (08:04→10:57)
[2023-04-26] MEDS ORDERED: FUROSEMIDE 40 MG TABLET PO SCH (09:00)
[2023-04-26] MEDS: IPRATROPIUM/ALBUTEROL 3 ML AMPUL.NEB NEB PRN (09:57)
[2023-04-26] MEDS: CARVEDILOL 12.5 MG TABLET PO SCH (10:22)
[2023-04-26] MEDS: Diclofenac Sodium 1 % gel TOPICAL SCH ×4 (10:42→20:52)
[2023-04-26] MEDS ORDERED: ALBUMIN HUMAN 50 ML IV ONE (10:58)
[2023-04-26] MEDS: Budesonide-Glycopyr-Formoterol [Breztri Aerosphere] INH SCH ×2 (11:06→20:52)
[2023-04-26] MEDS: INSULIN LISPRO 1 UNIT/0.01 ML UNIT SQ SCH ×4 (11:06→20:51)
[2023-04-26] MEDS: ALBUTEROL SULFATE 60 PUFF INHALER INH PRN (11:07)
[2023-04-26] MEDS: SENNOSIDES 1 TABLET PO SCH (11:08)
[2023-04-26] MEDS: LISINOPRIL 5 MG TABLET PO SCH (11:08)
[2023-04-26] MEDS: DOCUSATE SODIUM 100 MG CAPSULE PO SCH ×2 (11:08→20:51)
[2023-04-26] MEDS: cloNIDine HCL 0.1 MG TABLET PO SCH ×2 (11:08→20:51)
[2023-04-26] MEDS: PANTOPRAZOLE 40 MG TABLET PO SCH (11:09)
[2023-04-26] MEDS: APIXABAN 5 MG TABLET PO SCH ×2 (11:09→20:51)
[2023-04-26] MEDS: GABAPENTIN 100 MG CAPSULE PO SCH ×2 (11:09→20:51)
[2023-04-26] MEDS: CARVEDILOL 3.125 MG TABLET PO SCH (17:15)
[2023-04-27] MEDS: 0.9 % SODIUM CHLORIDE 10 ML SYRINGE IV SCH ×3 (05:24→20:49)
[2023-04-27] MEDS: CARVEDILOL 3.125 MG TABLET PO SCH ×2 (07:04→16:33)
[2023-04-27] MEDS: PANTOPRAZOLE 40 MG TABLET PO SCH (07:04)
[2023-04-27] MEDS: INSULIN LISPRO 1 UNIT/0.01 ML UNIT SQ SCH ×4 (07:05→20:48)
[2023-04-27 08:02] LABS: Blood Urea Nitrogen 11 mg/dL (8-23); Calcium 9.2 mg/dL (8.6-10.4); Carbon Dioxide 42 mmol/L (22-30); Chloride 94 mmol/L (96-108); Glomerular Filtration Rate 74; Glucose 101 mg/dL (70-105)
[2023-04-27] MEDS ORDERED: acetaZOLAMIDE SOD 500 MG VIAL IV SCH (08:19)
[2023-04-27] MEDS: LISINOPRIL 5 MG TABLET PO SCH (08:21)
[2023-04-27] MEDS: cloNIDine HCL 0.1 MG TABLET PO SCH ×2 (08:21→20:48)
[2023-04-27] MEDS: APIXABAN 5 MG TABLET PO SCH ×2 (08:21→20:48)
[2023-04-27] MEDS: DOCUSATE SODIUM 100 MG CAPSULE PO SCH ×2 (08:21→20:48)
[2023-04-27] MEDS: SENNOSIDES 1 TABLET PO SCH (08:22)
[2023-04-27] MEDS: GABAPENTIN 100 MG CAPSULE PO SCH ×2 (08:22→20:49)
[2023-04-27] MEDS: Diclofenac Sodium 1 % gel TOPICAL SCH ×4 (08:24→20:50)
[2023-04-27] MEDS: Budesonide-Glycopyr-Formoterol [Breztri Aerosphere] INH SCH ×2 (08:24→20:49)
[2023-04-27] MEDS ORDERED: POTASSIUM CHLORIDE 20 MEQ TABLET PO SCH (10:17)
[2023-04-27] MEDS: ALBUTEROL SULFATE 60 PUFF INHALER INH PRN ×2 (11:44→20:49)
[2023-04-28] MEDS: 0.9 % SODIUM CHLORIDE 10 ML SYRINGE IV SCH (05:11)
[2023-04-28] MEDS: ACETAMINOPHEN 325 MG TABLET PO PRN (07:08)
[2023-04-28] MEDS: CARVEDILOL 3.125 MG TABLET PO SCH (07:08)
[2023-04-28] MEDS: PANTOPRAZOLE 40 MG TABLET PO SCH (07:08)
[2023-04-28] MEDS: INSULIN LISPRO 1 UNIT/0.01 ML UNIT SQ SCH ×2 (07:08→11:28)
[2023-04-28] MEDS: DOCUSATE SODIUM 100 MG CAPSULE PO SCH (08:48)
[2023-04-28] MEDS: cloNIDine HCL 0.1 MG TABLET PO SCH (08:48)
[2023-04-28] MEDS: GABAPENTIN 100 MG CAPSULE PO SCH (08:48)
[2023-04-28] MEDS: LISINOPRIL 5 MG TABLET PO SCH (08:49)
[2023-04-28] MEDS: Diclofenac Sodium 1 % gel TOPICAL SCH (08:49)
[2023-04-28] MEDS: APIXABAN 5 MG TABLET PO SCH (08:49)
[2023-04-28] MEDS: SENNOSIDES 1 TABLET PO SCH (08:49)
[2023-04-28] MEDS: Budesonide-Glycopyr-Formoterol [Breztri Aerosphere] INH SCH (08:49)
[2023-04-28] MEDS ORDERED: FUROSEMIDE 40 MG TABLET PO SCH (09:00)
== END 2023-04-28 14:43 | disposition home or self-care (01) | DRG 189 ==
LOC: ED 18:46 → ICU 22:14 → MEDSUR 04-26 20:26
PROVIDERS: ADMIT Internal Medicine; ATTEND Internal Medicine